=== PATIENT | male | born 1955 | race Caucasian/White ===

== ENCOUNTER → 2017-08-11 09:46 | Outpatient (CLI) | payer MEDICARE, SELFPAY ==
[2017-08-11 11:54] LABS: ALB/GLOB Ratio 0.9 RATIO (0.9-2.4); AST(SGOT) 20 U/L (15-37); Alanine Aminotransfer ALT/SGPT 27 U/L (16-61); Albumin, Serum 3.6 g/dL (3.2-5.0); Alkaline Phosphatase 99 U/L (45-117); Anion Gap 6 (5-15); BUN 19 mg/dL (7-18); BUN/Creat Ratio 18.1 RATIO (10-20); Chloride 103 mmol/L (98-107); Cholesterol 229 mg/dL (200); Creatinine, Serum 1.05 mg/dL (0.70-1.30); EST Glomerular Filtration Rate 76 mL/min (>60); Est Glom Filt Rate - Afr Amer 92 mL/min (>60); Globulin 3.8 g/dL (2.2-4.2); Glucose 105 mg/dL (74-106); High Density Lipoprotein 40 mg/dL; Potassium 4.3 mmol/L (3.5-5.1); Protein, Total 7.4 g/dL (6.4-8.2); Sodium Level 138 mmol/L (136-145); Triglycerides 239 mg/dL; Very Low Density Lipoprotein 48 mg/dL (5-40)
[2017-08-11 11:57] LABS: Hemoglobin A1c 6.2 % (4.2-6.3)
== END ==
PROVIDERS: Family Provider Nurse Practitioner Family; PCP Nurse Practitioner Family; Visit Provider Nurse Practitioner Family
DX: E78.5 Hyperlipidemia, unspecified (principal); R73.09 Other abnormal glucose
CPT/HCPCS: 36415; 80053; 80061; 83036

== ENCOUNTER → 2017-08-25 10:49 | Outpatient (CLI) | payer MEDICARE, SELFPAY ==
--- NOTE | 2017-08-25 10:53 | RAD_ITS ---
STUDY: X-RAY - LUMBAR SPINE REASON FOR EXAM: Male, 62 years old. LOWER BACK PAIN 3-4 MONTHS, HX HERNIATED DISC TECHNIQUE: 5 view(s) of the lumbar spine were obtained. COMPARISON: October 25, 2016 FINDINGS: There is normal lumbar lordosis. There is multilevel endplate spondylosis of the lumbar vertebrae. There is multi-level degenerative disc disease with multi-level disc space narrowing. There is atherosclerotic calcification of the abdominal aorta without a demonstrated aneurysm. RAD/L/S Spine Min 4 Views IMPRESSION: Stable examination. Degenerative changes of the spine. Electronically Signed: Yamel Gonzalez MD at 8:10 EST Tel , Service support ,
== END ==
PROVIDERS: Family Provider Nurse Practitioner Family; PCP Nurse Practitioner Family; Visit Provider Nurse Practitioner Family
DX: M54.16 Radiculopathy, lumbar region (principal)
CPT/HCPCS: 72110

== ENCOUNTER 2017-08-29 13:52 | Outpatient (RCR) | payer MEDICARE, SELFPAY ==
--- NOTE | 2017-08-29 15:03 | HP.PTEVAL_ITS ---
Patient's Visit Information LIDIA CAPELLAN is a 62 year old M referred to Physical Therapy by [facility] [place] NP.LLORSO with a diagnosis of LOW BACK PAIN. Date of Evaluation: 08/29/17 Physical Therapist: Kg Harper PT, - Visit Plan Frequency: 2x /Week Duration: 4 Weeks Plan: modalities ,postural ex's,DLS,FLEXABLITY - Subjective Subjective: This 62 y/o male presents to physical therapy with low back pain. 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 Symptoms worse walking,standing,bending min sitting,lifting . Symptoms better with rest. Patient has difficulty with sleeping. Coughing.sneezing can increase symptoms .Parathesia /tingling right leg. Pain affects ADL'S and housework tasks and quality of life. SOCIAL: . 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 GAIT: antalgic gait right side mild foward posture. NEURO: c/o parathesia/tingling lower leg, reflexes 3/3 L3-4,L4-5,L5-S1. MMT: quads/hams/hip R- 3+/5,L 4-/5, ankle 4/5 , great toe extensors. LUMBAR ROM: mod loss pain ,extension severe pain ,side glides mod pain. FLEXABLITY: mod tight hams. PALPTION: tender lumbar paraspinals. SPECIAL TEST: diminished heel/toe walking. LUMBAR QUADRANT: + - Special Tests L/S Slump test left side: Negative L/S Slump test right side: Positive L/S Left Straight Leg Raise: Positive L/S Right Straight Leg Raise: Negative Lumbar Standing: Flexion - Mechanical Response: No effect Lumbar Standing: Flexion - Symptoms During Testing: Increases Lumbar Standing: Flexion - Symptoms After Testing: Worse Lumbar Standing: Extension - Mechanical Response: No effect Lumbar Standing: Extension - Symptoms During Testing: Increases Lumbar Standing: Extension - Symptoms After Testing: Worse - Goals Goal 1:: Independant with HEP Goal Time Frame: 2-4 Weeks Goal 2:: Independant with posture for ADL'S Goal Time Frame: 2-4 Weeks Goal 3:: Decrease lumbar pain and radiculopathy by 50 % or greater to improve function. Goal Time Frame: 2-4 Weeks Goal 4:: Patient to improve lumbar RO for function of recovery Goal Time Frame: 4-6 Weeks Goal 5:: Patient improve function with ADL'S and housework taks with min limiations Goal Time Frame: 2-4 Weeks - Rehabilitation Potential Physical Therapy Diagnosis: Patient has lumbar pain with radiculopathy right leg with MRI 2017 showed severe foraminal stenosis and h/o of lumbar surgery 2007 and 2009 . Patient currently has severe loss of ROM ,pain weakness right leg impairs walking and standng and function Rehabilitation Potential: Good - Anticipated Interventions Patient/Client Instruction: Educate patient on: Condition, Plan of Care For the Purpose of:: To decrease pain, To increase ROM, To improve muscle performance and motor function, To improve ability to perform ADL's, To increase tolerance to activity/condition/position, To improve performance and independence with ADL's, To improve gait and locomotor functions, To improve health of tissue, To decrease soft tissue restriction, To increase flexibility/ ROM, To improve health and function, To prevent re-injury, To improve ability to perform tasks related to life management Therapeutic Exercise to Include: Strength training, Body mechanics, Postural training, Flexibilty training, Dynamic Lumbar Stabilization For the Purpose of:: To decrease pain, To increase ROM, To improve muscle performance and motor function, To increase tolerance to activity/condition/ position, To improve performance and independence with ADL's, To improve ability of physical actions for home/community/work/leisure, To improve gait and locomotor functions, To improve health of tissue, To decrease soft tissue restriction, To increase flexibility/ROM, To reduce risk of recurrence, To improve health and function, To improve ability to perform tasks related to life management TENS: Yes IF ES: Yes Cryotherapy (ice pack, ice massage): Yes Thermo therapy (hot pack): Yes Ultrasound (thermal/non thermal): Yes For the Purpose of:: To decrease pain, To increase ROM, To improve nutrient delivery to tissue, To increase oxygenation perfusion, To improve health of tissue, To decrease soft tissue restriction Thank you for the opportunity to evaluate your patient. For Medicare and Medicare HMO plans, please review the plan of care and approve it. It will need to be FAXED BACK to us at [phone] for Medicare purposes. Please let me know if there are questions or concerns regarding this plan of care. Physician Signature: Date:
--- NOTE | 2017-11-15 08:16 | HP.PTDCNRP_ITS ---
HP - Discharge Summary (1) - Patient Information LIDIA CAPELLAN was seen in my office for initial evaluation on 08/29/17. The following Plan of Care was established for this patient: Initial Frequency: 2x /Week Initial Duration: 4 Weeks - Anticipated Interventions Patient/Client Instruction: Educate patient on: Condition, Plan of Care For the Purpose of:: To decrease pain, To increase ROM, To improve muscle performance and motor function, To improve ability to perform ADL's, To increase tolerance to activity/condition/position, To improve performance and independence with ADL's, To improve gait and locomotor functions, To improve health of tissue, To decrease soft tissue restriction, To increase flexibility/ ROM, To improve health and function, To prevent re-injury, To improve ability to perform tasks related to life management Therapeutic Exercise to Include: Strength training, Body mechanics, Postural training, Flexibilty training, Dynamic Lumbar Stabilization For the Purpose of:: To decrease pain, To increase ROM, To improve muscle performance and motor function, To increase tolerance to activity/condition/ position, To improve performance and independence with ADL's, To improve ability of physical actions for home/community/work/leisure, To improve gait and locomotor functions, To improve health of tissue, To decrease soft tissue restriction, To increase flexibility/ROM, To reduce risk of recurrence, To improve health and function, To improve ability to perform tasks related to life management TENS: Yes IF ES: Yes Cryotherapy (ice pack, ice massage): Yes Thermo therapy (hot pack): Yes Ultrasound (thermal/non thermal): Yes For the Purpose of:: To decrease pain, To increase ROM, To improve nutrient delivery to tissue, To increase oxygenation perfusion, To improve health of tissue, To decrease soft tissue restriction This patient was last seen in our office . Pertinent comments regarding their Physical therapy will appear below: Patient was seen for Initial PT evaluation for low back pain. Patient was highly irritable and poor ROM and impaired function. At this point I will be discontinuing this patient from physical therapy. I would be happy to see this patient again in the future if found appropriate by the physician. Thank you! Kg Harper, PT,
== END 2017-08-29 19:00 | disposition home or self-care (01) ==
LOC: PT 13:52
PROVIDERS: Family Provider Nurse Practitioner Family; PCP Nurse Practitioner Family; Visit Provider Nurse Practitioner Family
DX: M54.5 Low back pain (principal)
CPT/HCPCS: 97014; 97162; G0283

== ENCOUNTER 2017-09-06 09:37 | Emergency (ER) | payer MEDICARE, SELFPAY ==
[2017-09-06 09:37] VITALS: BP 191/99; PULSE 87; RESP 17; TEMP 36.9; O2SAT 97; BMI 24.0
--- NOTE | 2017-09-06 10:08 | ED.VISSUMM ---
- ER Visit Summary Date of Service: 09/06/17 Chief Complaint: Back pain History of Present Illness: The patient is a [address] Perera. He reports he has back pain began approximately a year ago. He describes as an aching pain is 1010 at worst and 6 out of 10 currently. Is worsened by movement and relieved by nothing. He denies any recent trauma. No fall, MVA, or change in activity. Reports that numbness in his right foot for approximately 2 months. Pain radiates down the back of his right leg to the level of his foot. He denies any problems with his bowels or his bladder. No numbness in his groin. Patient reports that he has been referred to pain management in [place], but has not seen them yet. He states that his nurse practitioner is referring him to orthopedics. However, he reports that he had surgery on his back by Dr. Marcus Tena [facility] in 2009 and is not bothered to contact him over this timeframe. He had an MRI last October. Physical Examination: Vitals: Stable. Afebrile. General: A&O x 3. NAD. Cardiovascular exam: Regular rate and rhythm, no murmur, rub or gallop. Respiratory exam: Clear to auscultation bilaterally. No wheezes or stridor. Abdominal exam: Soft, nontender, nondistended, normal bowel sounds. No peritoneal signs. Back: Diffuse moderate tenderness to palpation over the lumbar spine and the paraspinous musculature in the lumbar region. No point tenderness. Negative straight leg bilaterally. 5/5 DF, PF, EHL bilaterally. Normal sensation to light touch throughout. Extremity: No clubbing, cyanosis, or edema. Emergency Department Course and Treatment: An [facility] report was obtained which shows a 22 prescriptions for opiates in the past year. I discussed them that he needs to follow-up with his pain management and spine surgeon for further evaluation and treatment. He is given dose of oxycodone here. Treatment Plan: I discussed the patient at this is chronic pain and it is not appropriate to prescribe pain medications from the emergency department for chronic pain. I have given a referral to Dr. Marcus Tena, his spine surgeon, and instructed to follow-up with him and pain management for further treatment of this chronic problem. The signs and symptoms of cauda equina syndrome were discussed. He is instructed to return for these. Disposition: To home in improved and stable condition. Impression: 1. Chronic back pain. This note was generated with [employer] dictation software. It may contain incorrect words, spelling, and punctuation that were not noted in review of the chart prior to signing ED Disposition - Plan for ED Patient: Disposition: Home or Assisted Living Chief Complaint: Back Instructions: ED Chronic Pain Management Referrals: Julissa García NP-C [Primary Care Provider] - Uriah Tena, DO [NON-STAFF] - As soon as possible
[2017-09-06] MEDS: oxyCODONE 5 MG Tablet 10 MG PO (10:24)
[2017-09-06 10:34] VITALS: BP 141/109; PULSE 68; RESP 17; O2SAT 99
== END 2017-09-06 10:42 | disposition home or self-care (01) ==
PROVIDERS: Emergency Provider Emergency Medicine; Family Provider Nurse Practitioner Family; PCP Nurse Practitioner Family
DX: M54.9 Dorsalgia, unspecified (principal); G89.29 Other chronic pain; R20.0 Anesthesia of skin; I10 Essential (primary) hypertension; I73.9 Peripheral vascular disease, unspecified; R11.0 Nausea; Z72.0 Tobacco use; Z79.82 Long term (current) use of aspirin; Z79.899 Other long term (current) drug therapy
CPT/HCPCS: 99283

== ENCOUNTER 2017-09-26 21:54 | Emergency (ER) | payer MEDICARE, SELFPAY ==
[2017-09-26 21:55] VITALS: BP 141/68; BP 160/66; PULSE 61; PULSE 64; RESP 14; RESP 15; TEMP 36.8; O2SAT 98; O2SAT 99; BMI 24.7
--- NOTE | 2017-09-26 22:26 | EKG12_ITS ---
Test Reason : CP Blood Pressure : / mmHG Vent. Rate : 063 BPM Atrial Rate : 063 BPM P-R Int : 166 ms QRS Dur : 082 ms QT Int : 364 ms P-R-T Axes : 023 056 040 degrees QTc Int : 372 ms Normal sinus rhythm Normal ECG Confirmed by ALEXANDRE JONES MD ([id number]), newspaper or periodical editor JASVIR JARRETT ([id number]) on 09/29/2017 11:23:22 AM Referred By: LATASHA Confirmed By:ALEXANDRE JONES MD
--- NOTE | 2017-09-26 22:26 | RAD_ITS ---
STUDY: X-RAY CHEST REASON FOR EXAM: Male, 62 years old. Left-sided chest pain TECHNIQUE: Single AP portable view of the chest. COMPARISON: None. FINDINGS: fish net maker leads are present. The lungs are clear and expanded. There is no demonstrated pleural abnormality. Normal size heart. Normal mediastinum and tricia. Normal visualized pulmonary arteries. There are calcified plaques of the aortic arch. There are diffuse degenerative changes of the visualized thoracic spine. Normal visualized ribs, clavicles, and shoulders. There is no demonstrated abnormality of the visualized soft tissue structures of the upper abdomen. RAD/Chest 1 View (Portable) IMPRESSION: Calcific plaques of the aortic arch. Degenerative thoracic spine. Electronically Signed: Philip Mar MD at 23:08 EDT , Service support ,
--- NOTE | 2017-09-26 22:32 | ED.DCSUM_ITS ---
- ER Visit Summary Date of Service: 09/26/17 Chief Complaint: Chest pain History of Present Illness: The patient is a 62 M with chest pain that started fairly suddenly and just prior to arrival tonight. He eating cake and ice cream and take his dish to the kitchen. He started to have retrosternal chest pain which was sharp and did not radiate. No tearing or gnawing pain. No back pain. No numbness. No nausea or vomiting. No sweats or pallor. No lightheadedness. No shortness of breath. Patient has high cholesterol, peripheral arterial disease and is a smoker. He has a history of a femoropopliteal bypass and a family history of coronary disease. He had a stress test in 2012 which he said was unremarkable. No history of stents. Physical Examination: Afebrile and vital signs unremarkable. Patient sitting comfortably. Skin normal in color without pallor or diaphoresis. Heart regular with no murmurs or rubs. Lungs clear. Extremities nontender. Good strength and sensation. Good pulses, equal. Test Results: EKG shows sinus rhythm at a rate of 63. No sign of acute ischemia or infarction. Chest x-ray and laboratory studies are pending. Emergency Department Course and Treatment: Patient placed on a monitor and treated with aspirin while awaiting results. The story is atypical, but I am concerned for ACS. He does not have a classic history, signs, or symptoms for PE or dissection. Chest x-ray showed a calcified aortic arch and degenerative T-spine. No widening of the mediastinum. White count 11.4. BMP unremarkable. Troponin normal. Patient had no further pain or symptoms. I advised him that he has risk factors for heart disease and recommended admission. He refused to be admitted. Says he feels okay and that will follow up with his doctor. He will call 911 for any chest pain. He understands that the complete workup has not been done and he could benefit from hospitalization. He declined any repeat or additional testing including CT. Treatment Plan: As above Disposition: Discharged Impression: 1. Chest pain This note was generated with [employer] dictation software. It may contain incorrect words, spelling, and punctuation that were not noted in review of the chart prior to signing ED Disposition - Plan for ED Patient: Chief Complaint: Chest Pain Referrals: Julissa García NP-C [Primary Care Provider] -
[2017-09-26 22:46] LABS: Absolute Lymphocyte Count 3.85 X10^3/ul (0.83-4.51); Absolute Neutrophil Count 6.4 X10^3/uL (2.0-7.7); Basophil# 0.04 X10^3/uL; Basophil% 0.4 % (0-1); Eosinophils% 2.6 % (0-5); Hematocrit 41.6 % (40-54); Hemoglobin 13.8 g/dl (13.0-16.5); Lymphocyte # 3.85 X10^3/ul (4.0); Lymphocyte % 33.9 % (19-41); Mean Corp Hgb Conc 33.2 g/gl (32-36); Mean Corpuscular Hgb 31.1 pg (27.0-32.0); Mean Corpuscular Volume 93.7 fL (80-94); Mean Platelet Vol. 11.8 fl (6.2-12.0); Monocyte# 0.73 X10^3/uL; Monocyte% 6.4 % (0-10); Neutrophil # 6.41 X10^3/uL (2.7-7.7); Neutrophil % 56.5 % (47-70); POSITIVE COUNT NO; POSITIVE DIFFERENTIAL NO; POSITIVE MORPHOLOGY NO; Platelet Count 202 K/mm3 (150-450); RBC Distribution Width CV 14.3 % (11.6-14.6); RBC Distribution Width SD 48.7 fl (35.1-43.9); Red Blood Count 4.44 M/mm3 (4.6-6.2); White Blood Count 11.4 K/mm3 (4.4-11.0)
[2017-09-26] MEDS: Aspirin 81 MG TAB.CHEW 324 MG PO (23:00)
[2017-09-26 23:01] VITALS: BP 137/74; PULSE 57; RESP 16; O2SAT 98
[2017-09-26 23:01] LABS: Anion Gap 6 (5-15); BUN 22 mg/dL (7-18); Calcium,Total 8.8 mg/dL (8.5-10.1); Chloride 104 mmol/L (98-107); Creatinine, Serum 1.05 mg/dL (0.70-1.30); EST Glomerular Filtration Rate 76 mL/min (>60); Est Glom Filt Rate - Afr Amer 92 mL/min (>60); Estimated Creatinine Clearance 57.95 ml/min; Glucose 88 mg/dL (74-106); Sodium Level 139 mmol/L (136-145)
--- NOTE | 2017-09-26 23:36 | ED.DEP ---
ED Disposition - Plan for ED Patient: Chief Complaint: Chest Pain Instructions: Warning Signs of a Heart Attack Referrals: Julissa García NP-C [Primary Care Provider] -
--- NOTE | 2017-09-26 23:40 | HP.PCM_ITS ---
History of Present Illness The patient is a 62 year old M [] Past Medical History Past Medical History (Chronic Problems): Chronic Problems Status post femoropopliteal bypass surgery (Chronic) Hyperlipemia (Chronic) Smoking (Chronic) Peripheral arterial occlusive disease (Chronic) Allergies No Known Allergies Allergy (Verified 09/26/17 22:00) Home Medications: Ambulatory Orders Medication Instructions Recorded Aspirin [Aspirin, Baby] 81 mg PO DAILY 03/19/13 Tetrahydrozoline HCl [Eye Drops] 1 drop EACH EYE QHS 02/06/15 Smoking Status: Current every day smoker - *Family History Maternal History Items: No pertinent history - Physical Exam Vital Signs Temp Pulse Resp BP Pulse Ox 98.3 F 57 L 16 137/74 H 98 09/26/17 21:55 09/26/17 23:01 09/26/17 23:01 09/26/17 23:01 09/26/17 23:01 Oxygen Flow Rate (L/min) 2 Oxygen Delivery Method Nasal Cannula Weight: 139 lb 12.369 oz Body Mass Index (BMI) 24.7 Laboratory Tests Past 24 Hrs 09/26/17 09/26/17 22:00 22:00 WBC 11.4 H RBC 4.44 L Hgb 13.8 Hct 41.6 MCV 93.7 MCH 31.1 MCHC 33.2 RDW 14.3 RDW Differential 48.7 H Plt Count 202 MPV 11.8 Immature Gran % (Auto) 0.200 Neut % (Auto) 56.5 Lymph % (Auto) 33.9 [place] % (Auto) 6.4 Eos % (Auto) 2.6 Baso % (Auto) 0.4 Absolute Neuts (auto) 6.4 Absolute Lymphs (auto) 3.85 Total Counted Not Reportable Sodium 139 Potassium 4.0 Chloride 104 Carbon Dioxide 29.0 Anion Gap 6 BUN 22 H Creatinine 1.05 Estim Creat Clear Calc 57.95 Est GFR (MDRD) Af Amer 92 Est GFR (MDRD) Non-Af 76 BUN/Creatinine Ratio 21.0 H Glucose 88 Calcium 8.8 Troponin I < 0.02
[2017-09-26 23:41] VITALS: BP 137/74; PULSE 59; RESP 18; O2SAT 99
== END 2017-09-26 23:42 | disposition home or self-care (01) ==
LOC: ED 22:37
PROVIDERS: Emergency Provider Emergency Medicine; Family Provider Nurse Practitioner Family; PCP Nurse Practitioner Family
DX: R07.9 Chest pain, unspecified (principal); I73.9 Peripheral vascular disease, unspecified; E78.00 Pure hypercholesterolemia, unspecified; Z79.82 Long term (current) use of aspirin; Z79.899 Other long term (current) drug therapy; F17.200 Nicotine dependence, unspecified, uncomplicated; Z95.820 Peripheral vascular angioplasty status with implants and grafts; Z87.19 Personal history of other diseases of the digestive system
CPT/HCPCS: 71045; 80048; 84484; 85025; 93005; 99285; A4216

== ENCOUNTER → 2017-10-13 09:09 | Outpatient (CLI) | payer MEDICARE, SELFPAY ==
--- NOTE | 2017-10-13 09:12 | US_ITS ---
STUDY: ABDOMINAL ULTRASOUND REASON FOR EXAM: Male, 62 years old. Left lower quadrant pain TECHNIQUE: Transabdominal ultrasound was performed with real-time and static jimenez scale imaging. TECHNICAL QUALITY: Limited. Examination limited by bowel gas. COMPARISON: None. FINDINGS: Liver: The liver measures 14.7 cm. There is normal echogenicity of the liver. The bile ducts are within normal limits. There is hepatic color flow. The direction of portal flow is hepatopetal. There is no demonstrated mass lesion. Gallbladder: There is a contracted gallbladder. The gallbladder wall measures 3 mm. There is a negative sonographic Hilton's sign. There is no pericholecystic fluid. There are no gallstones. Common Bile Duct (C.B.D.): The common bile duct measures 3 mm. Pancreas: There is suboptimal visualization of the pancreas secondary to excessive bowel gas. The pancreas is grossly within normal limits in size and contour. Spleen: Normal size of the spleen. The spleen measures 9.1 x 3.5 x 3.8 cm. Right Kidney: Normal size of the right kidney. The right kidney measures 10.5 x 4.5 x 6.0 cm. Normal renal cortex. The right cortex measures 1.7 cm. There is no demonstrated renal mass or cyst. There is no right hydronephrosis. Left Kidney: Normal size of the left kidney. The left kidney measures 10.7 x 4.2 x 4.6 cm. Normal renal cortex. The left cortex measures 1.4 cm. There is no demonstrated renal mass or cyst. There is no left hydronephrosis. Aorta: The proximal abdominal aorta was obscured by bowel gas. The mid abdominal aorta measures 1.3 x 1.5 cm in diameter. The distal abdominal aorta measures 1.5 x 1.4 cm in diameter. Atheromatous plaques are seen in the visualized mid to distal abdominal aorta. I.V.C.: The IVC is patent. There is no ascites. US/Abdomen Complete IMPRESSION: Limited study secondary to excessive bowel gas artifact. There is limited visualization of the pancreas. The abdominal aorta is obscured by bowel gas proximally. Atheromatous plaque is noted in the mid to distal abdominal aorta. Electronically Signed: Philip Mar MD at 20:13 EDT , Service support ,
== END ==
LOC: US 09:10
PROVIDERS: Family Provider Nurse Practitioner Family; PCP Nurse Practitioner Family; Visit Provider Nurse Practitioner Family
DX: R10.814 Left lower quadrant abdominal tenderness (principal)
CPT/HCPCS: 76700

== ENCOUNTER 2018-01-30 03:07 | Emergency (ER) | payer MEDICARE, SELFPAY ==
[2018-01-30 03:08] VITALS: BP 152/112; PULSE 67; RESP 18; TEMP 36.8; O2SAT 99; BMI 23.0
--- NOTE | 2018-01-30 03:38 | ED.VISSUMM ---
- ER Visit Summary Date of Service: 01/30/18 Chief Complaint: Atraumatic left hip pain History of Present Illness: The patient is a 62 M history of peripheral arterial disease with bypass surgery to both lower extremities. Also history of melanoma and glaucoma. Patient states since Monday he has had atraumatic left hip pain. Denies any falls or injuries. No prior history. No prior hip surgery. He states feels somewhat like his prior sciatica except consider going down the back of the leg and wraps around his medial thigh. He denies any fever or redness. No swelling. He is able to walk. Physical Examination: Older male complaining of pain vital signs are stable afebrile. H EENT exam unremarkable. Neck nontender. Lungs clear to auscultation bilaterally. Heart regular rhythm no murmur. Abdomen soft nontender. No pulsatile mass. Palpable left femoral pulse. Back nontender. Left hip laterally has mild tenderness. No deformity. No redness or warmth. No swelling. He has normal range of motion of his left hip. There is no shortening or rotation. No gross bony deformity. Left thigh, knee, lower leg ankle and foot are nontender. He has a palpable DP pulse. Dorsi and plantar flexion intact. Calf is with out tenderness nor edema nor cord. Right lower extremity both upper extremities are unremarkable. Neurologic exam is normal. Test Results: X-ray of the left hip and pelvis no acute process. Mild arthritic changes. No fracture. No dislocation. No bony lesions. Emergency Department Course and Treatment: Patient treated with IM morphine. Treatment Plan: Repeat exam at 04 49 patient is doing somewhat better. He is up walking about the room. He and I discussed that this may be neurologic pain from a pinched nerve in his back. He has no reproducible back pain. He will be discharged home with [place] for pain 20 no refill. Follow-up with his primary care physician if not improving. Disposition: Discharge Impression: Acute atraumatic left hip pain of uncertain etiology This note was generated with [employer] dictation software. It may contain incorrect words, spelling, and punctuation that were not noted in review of the chart prior to signing ED Disposition - Plan for ED Patient: Chief Complaint: Lower Extremity Injury Referrals: Julissa García NP-C [Primary Care Provider] -
[2018-01-30] MEDS: morphine 10 MG/ML Syringe IM (03:41)
--- NOTE | 2018-01-30 04:51 | ED.DEP ---
ED Disposition - Plan for ED Patient: Disposition: Home or Assisted Living Chief Complaint: Lower Extremity Injury Prescriptions: Hydrocodone/Acetaminophen [[place] 7.5-325 Tablet] 1 ea PO Q4H PRN PRN #20 tab PRN Reason: Pain Referrals: Julissa García NP-C [Primary Care Provider] - As soon as possible Additional Instructions: The hip pain may be secondary to a pinched nerve in her back. Use an anti-inflammatory such as naproxen and also the [place] for pain. [place] may cause you constipation make sure you are drinking plenty of water and plenty of fiber to prevent constipation. Follow-up your primary care physician if this pain is not improving you may need further evaluation and possibly even an MRI of your back if this is not improving.
--- NOTE | 2018-01-30 04:54 | DCINST.ED_ITS ---
ED Disposition - Plan for ED Patient: Disposition: Home or Assisted Living Chief Complaint: Lower Extremity Injury Prescriptions: Hydrocodone/Acetaminophen [[place] 7.5-325 Tablet] 1 ea PO Q4H PRN PRN #20 tab PRN Reason: Pain Referrals: Julissa García NP-C [Primary Care Provider] - As soon as possible Additional Instructions: The hip pain may be secondary to a pinched nerve in her back. Use an anti-inflammatory such as naproxen and also the [place] for pain. [place] may cause you constipation make sure you are drinking plenty of water and plenty of fiber to prevent constipation. Follow-up your primary care physician if this pain is not improving you may need further evaluation and possibly even an MRI of your back if this is not improving.
[2018-01-30 05:03] VITALS: BP 174/88; PULSE 56; RESP 18; O2SAT 100
== END 2018-01-30 05:04 | disposition home or self-care (01) ==
PROVIDERS: Emergency Provider Emergency Medicine; Family Provider Nurse Practitioner Family; PCP Nurse Practitioner Family
DX: M25.552 Pain in left hip (principal); I73.9 Peripheral vascular disease, unspecified; H40.9 Unspecified glaucoma; Z72.0 Tobacco use; Z79.82 Long term (current) use of aspirin; Z79.899 Other long term (current) drug therapy; Z85.820 Personal history of malignant melanoma of skin; Z95.820 Peripheral vascular angioplasty status with implants and grafts
CPT/HCPCS: 73502; 96372; 99282

== ENCOUNTER → 2018-02-14 16:03 | Outpatient (CLI) | payer MEDICARE, SELFPAY ==
--- NOTE | 2018-02-14 16:17 | MRI_ITS ---
STUDY: MRI LUMBAR SPINE WITHOUT CONTRAST REASON FOR EXAM: Male, 62 years old. Low back pain. TECHNIQUE: Standardized fat and water weighted pulse sequences were obtained in the sagittal and axial planes. COMPARISON: None FINDINGS: T12-L1: Normal endplates. Normal disc height, hydration and morphology. Normal bilateral facet joints. Normal central canal and bilateral lateral recesses. Normal bilateral intervertebral neural foramina. Normal lumbar lordosis. There is no substantial scoliosis. Normal conus medullaris that terminates at the T12 level. L1-2: Normal endplates. Disc dehydration. There is a small right paracentral annular fissure. Mild facet hypertrophy. Normal central canal and bilateral lateral recesses. Normal bilateral intervertebral neural foramina. L2-3: Normal endplates. Disc dehydration and moderate disc space narrowing. There is 2 mm degenerative retrolisthesis. Normal bilateral facet joints. Normal central canal and bilateral lateral recesses. There is moderate proximal foraminal stenosis due to spurring and retrolisthesis. L3-4: Normal endplates. Disc dehydration and mild disc space narrowing. Status post laminectomy. There is 3 mm degenerative retrolisthesis. There is mild to moderate foraminal encroachment, greater on the right, due to spurring and mild facet hypertrophy. L4-5: Normal endplates. Disc dehydration and moderate disc space narrowing. There is 3 mm degenerative anterolisthesis. Mild facet hypertrophy. No canal stenosis. Foramina are patent. L5-S1: Transitional L5 vertebral body with hypoplastic disc space. Normal endplates. Mild facet arthrosis. Normal central canal and bilateral lateral recesses. Normal bilateral intervertebral neural foramina. Normal visualized sacral ala. Normal visualized paraspinous soft tissue structures. MRI/Spine Lumbar (Routine) IMPRESSION: 1. L1-2 annular fissure. 2. Multilevel listhesis including L2-3, L3-4, and L4-5. 3. Foraminal encroachment at L2-3 and L3-4. Electronically Signed: Kelsea Mendoza MD at 19:47 EDT Tel , Service support ,
== END ==
LOC: MRI 16:04
PROVIDERS: Family Provider Nurse Practitioner Family; PCP Nurse Practitioner Family; Visit Provider Nurse Practitioner Family
DX: M54.16 Radiculopathy, lumbar region (principal); M25.552 Pain in left hip; M54.5 Low back pain; G89.29 Other chronic pain
CPT/HCPCS: 72148; 73721

== ENCOUNTER 2018-03-29 11:45 | Inpatient (IN) | payer MEDICARE, SELFPAY ==
[2018-03-29 12:00] VITALS: BP 145/90; PULSE 65; RESP 16; TEMP 36.7; O2SAT 100
[2018-03-29 12:04] VITALS: BMI 23.1
[2018-03-29 12:05] VITALS: BMI 23.1
--- NOTE | 2018-03-29 12:28 | HP.PCM_ITS ---
Problem List (1) Hyperlipemia Status: Chronic Qualifiers: Hyperlipidemia type: unspecified Qualified Code(s): E78.5 - Hyperlipidemia, unspecified (2) Smoking Status: Chronic (3) Peripheral arterial occlusive disease Status: Chronic (4) Opioid withdrawal Status: Acute History of Present Illness Date of Admission: 03/29/18 Chief Complaint: Nausea, diarrhea, tremors, goose flesh - 1 day The patient is a 62 year old M with past medical history of opioid use disorder, reportedly after a history of back surgery according to the patient. Patient comes in and request medical stabilization under the [facility] protocol. He uses 1-2 g of heroin every day, last use heroin use was yesterday. He comes in complaining of nausea, runny nose, gooseflesh, tremors. Also reports diarrhea and generalized muscle ache. Past Medical History Past Medical History (Chronic Problems): Chronic Problems Status post femoropopliteal bypass surgery (Chronic) Hyperlipemia (Chronic) Smoking (Chronic) Peripheral arterial occlusive disease (Chronic) Allergies No Known Allergies Allergy (Verified 01/30/18 03:11) Home Medications: Ambulatory Orders Medication Instructions Recorded Aspirin [Aspirin, Baby] 81 mg PO QHS 03/19/13 Tetrahydrozoline HCl [Eye Drops] 1 drop EACH EYE QHS 02/06/15 Surgical History: - - PAD s/p fem-pop bypass, back surgery Lives: Spouse/ Significant Other Smoking Status: Current every day smoker Tobacco Use: Cigarettes Alcohol: None Drugs: None - *Family History Maternal History Items: No pertinent history Paternal History Items: No pertinent history Review of Systems Constitutional: Denies: Anorexia, Chills, Fever, Malaise, Weakness, Weight Change Eyes: Denies: Blurred vision, Cataracts HEENT: Denies: Difficulty Hearing, Difficulty Swallowing, Head Aches, Hearing Changes, Sinus Congestion, Sinus Drainage Cardiovascular: Denies: Chest Pain, Claudication, Orthopnea, Palpitations, Paroxysmal Noc. Dyspnea Respiratory: Denies: Cough, Hemoptysis, Shortness of breath at rest, Shortness of breath upon exertion, Sputum production Gastrointestinal: Reports: Nausea. Denies: Abdominal Pain, Hematemesis, Hematochezia, Vomiting Genitourinary: Denies: Dysuria, Frequency, Incontinence Musculoskeletal: Denies: Joint Pain, Joint stiffness, Joint swelling, Joint Tenderness Skin: Denies: Rash, Wounds Neurological: Denies: Difficulty swallowing, Focal weakness, Numbness, Tingling Psychiatric: Denies: Anxiety, Depression, Homicidal Ideations, Suicidal Ideations Hematologic/ Lymphatic: Denies: Easy Bruising, Easy Bleeding VTE Information - Inpt Only VTE Present on Admission: No VTE Pharm Prophylaxis ordered?: Yes Patient Problems: Active and Suspected Problems Opioid withdrawal (Acute) - Physical Exam General: Alert, Oriented x3, Cooperative, No apparent distress HEENT: Atraumatic, PERRLA, EOMI, Normocephalic Oral: Moist Mucosa Neck: Supple, No JVD, Negative Carotid Bruits Lungs: Clear to auscultation, Normal air movement Cardiovascular: Regular rate, Regular Rhythm, Normal S1, Normal S2, No murmurs Abdomen: Bowel Sounds Present, Soft, Non Tender, Non-Distended, No Hepato-splenomegaly Extremities: No edema Skin: No rashes, No breakdown Musculoskeletal: No Tenderness to Palpation of Joints or Extremities Lymphatic: No Cervical, Supraclavicular, or Inguinal Adenopathy Neurological: Cranial nerves II-XII grossly intact, Neuro grossly intact Psych/Mental Status: Normal Affect, Appropriate Vital Signs Temp Pulse Resp BP Pulse Ox 98.0 F 65 16 145/90 H 100 03/29/18 12:00 03/29/18 12:00 03/29/18 12:00 03/29/18 12:00 03/29/18 12:00 Oxygen Delivery Method Room Air Weight: 60.101 kg Body Mass Index (BMI) 23.1 Assessment/Plan All Active Problems Opioid withdrawal (Acute) SMALL BOWEL ileus (Acute) Chest pain (Resolved) 62 y/o male with opioid use disorder comes in with nausea, muscle aches, and is admitted for medical stabilization. 1. Acute opioid withdrawal, will be admitted and managed under the [facility] protocol. 2. Polysubstance use disorder, including nicotine dependency, on nicotine replacement 3. H/o PAD s/p fem-pop bypass, continue on aspirin 4. DVT PPx- Lovenox SC Code Visit Inpatient E&M: 93993 Init Hosp L2
[2018-03-29 12:57] LABS: Absolute Lymphocyte Count 2.37 X10^3/ul (0.83-4.51); Absolute Neutrophil Count 3.7 X10^3/uL (2.0-7.7); Basophil# 0.05 X10^3/uL; Basophil% 0.7 % (0-1); Eosinophil# 0.39 X10^3/uL; Eosinophils% 5.5 % (0-5); Hematocrit 42.1 % (40-54); Hemoglobin 14.2 g/dl (13.0-16.5); Lymphocyte # 2.37 X10^3/ul (4.0); Lymphocyte % 33.6 % (19-41); Mean Corp Hgb Conc 33.7 g/gl (32-36); Mean Corpuscular Hgb 30.7 pg (27.0-32.0); Mean Corpuscular Volume 90.9 fL (80-94); Mean Platelet Vol. 11.4 fl (6.2-12.0); Monocyte# 0.58 X10^3/uL; Monocyte% 8.2 % (0-10); Neutrophil # 3.65 X10^3/uL (2.7-7.7); Neutrophil % 51.9 % (47-70); Platelet Count 232 K/mm3 (150-450); RBC Distribution Width CV 14.5 % (11.6-14.6); Red Blood Count 4.63 M/mm3 (4.6-6.2); White Blood Count 7.1 K/mm3 (4.4-11.0)
[2018-03-29 12:58] LABS: POSITIVE COUNT NO; POSITIVE DIFFERENTIAL NO; POSITIVE MORPHOLOGY NO
[2018-03-29 13:14] LABS: AST(SGOT) 13 U/L (15-37); Alanine Aminotransfer ALT/SGPT 21 U/L (16-61); Albumin, Serum 3.8 g/dL (3.2-5.0); Alkaline Phosphatase 102 U/L (45-117); Anion Gap 7 (5-15); BUN 19 mg/dL (7-18); BUN/Creat Ratio 18.8 RATIO (10-20); Calcium,Total 8.9 mg/dL (8.5-10.1); Chloride 107 mmol/L (98-107); Creatinine, Serum 1.01 mg/dL (0.70-1.30); EST Glomerular Filtration Rate 79 mL/min (>60); Est Glom Filt Rate - Afr Amer 96 mL/min (>60); Estimated Creatinine Clearance 60.25 ml/min; Globulin 3.8 g/dL (2.2-4.2); Glucose 101 mg/dL (74-106); Potassium 4.4 mmol/L (3.5-5.1); Protein, Total 7.6 g/dL (6.4-8.2); Sodium Level 137 mmol/L (136-145)
[2018-03-29] MEDS: hydrOXYzine PAM 25 MG Capsule 50 MG PO ×2 (13:14→19:57)
[2018-03-29] MEDS: cloNIDine HCl 0.1 MG Tablet PO ×2 (13:14→18:28)
[2018-03-29] MEDS: Dicyclomine 10 MG Capsule 20 MG PO (13:14)
[2018-03-29] MEDS: Buprenorphine HCl 2 MG TAB.SUBL SL ×2 (13:14→19:57)
[2018-03-29] MEDS: Methocarbamol 750 MG Tablet PO ×2 (13:14→19:57)
--- NOTE | 2018-03-29 14:39 | EKG12_ITS ---
Test Reason : [facility] Blood Pressure : / mmHG Vent. Rate : 046 BPM Atrial Rate : 046 BPM P-R Int : 206 ms QRS Dur : 090 ms QT Int : 432 ms P-R-T Axes : 000 056 051 degrees QTc Int : 378 ms Marked sinus bradycardia Abnormal ECG When compared with ECG of 26-SEP-2017 21:56, No significant change was found Confirmed by KAREN BRYAN, ALEXANDRE ([id number]), editor farm journal EUGENIA HURD ([id number]) on 04/09/2018 11:05:25 AM Referred By: Mignon Glaser Confirmed By:ALEXANDRE JONES MD
[2018-03-29 16:25] VITALS: BP 108/71; PULSE 51; RESP 18; TEMP 36.8
[2018-03-29 17:08] LABS: Amphetamine Urine VISTA NEGATIVE (<1000 ng/mL); Barbiturate Urine VISTA NEGATIVE (< 200 ng/mL); Benzodiazepine Urine VISTA NEGATIVE (< 200 ng/mL); Cocaine Urine VISTA NEGATIVE (< 300 ng/mL); Ecstacy Urine VISTA NEGATIVE (< 500 ng/mL); Methadone Urine VISTA NEGATIVE (< 300 ng/mL); PCP Urine VISTA NEGATIVE (< 25 ng/mL); THC Urine VISTA POSITIVE (< 50 ng/mL); Vista UDS pH Range 5
[2018-03-29] MEDS: Pramipexole Di-HCl 0.25 MG Tablet PO (18:28)
[2018-03-29 18:30] VITALS: PULSE 65
[2018-03-29] MEDS: Zolpidem Tartrate 5 MG Tablet PO (21:21)
[2018-03-29] MEDS: Aspirin 81 MG TAB.CHEW PO (21:21)
[2018-03-29 22:00] VITALS: BP 129/58; PULSE 62; RESP 16; TEMP 36.7
[2018-03-30 02:00] VITALS: BP 101/60; PULSE 55; RESP 16; TEMP 36.7
[2018-03-30] MEDS: Buprenorphine HCl 2 MG TAB.SUBL SL ×3 (03:43→20:29)
[2018-03-30 06:00] VITALS: BP 108/63; PULSE 61; RESP 16; TEMP 37
[2018-03-30 07:41] VITALS: BP 134/73; PULSE 56; RESP 16; TEMP 36.5; O2SAT 96
[2018-03-30] MEDS: Methocarbamol 750 MG Tablet PO ×2 (07:50→20:29)
[2018-03-30] MEDS: Enoxaparin 40 MG/0.4 ML Syringe SC (07:55)
--- NOTE | 2018-03-30 12:25 | PCM.PN.HOSP ---
Patient Problems: Active and Suspected Problems Opioid withdrawal (Acute) Subjective: Patient was seen and examined. Complains of worsening generalized aches and poor sleep. Denies any worsening nausea or vomiting or diarrhea. CIWA scores are improving with the current being 3 Objective: Physical Exam General: Alert, Oriented x3, Cooperative, in mild discomfort from generalized aches HEENT: Atraumatic, PERRLA, EOMI, Normocephalic Oral: Moist Mucosa Neck: Supple, No JVD, Negative Carotid Bruits Lungs: Clear to auscultation, Normal air movement Cardiovascular: Regular rate, Regular Rhythm, Normal S1, Normal S2, No murmurs Abdomen: Bowel Sounds Present, Soft, Non Tender, Non-Distended, No Hepato-splenomegaly Extremities: No edema Skin: No rashes, No breakdown Musculoskeletal: No Tenderness to Palpation of Joints or Extremities Lymphatic: No Cervical, Supraclavicular, or Inguinal Adenopathy Neurological: Cranial nerves II-XII grossly intact, Neuro grossly intact Psych/Mental Status: Normal Affect, Appropriate Vitals/I&O's: Vital Signs Temp Pulse Resp BP Pulse Ox 97.7 F L 56 L 16 134/73 H 96 03/30/18 07:41 03/30/18 07:41 03/30/18 07:41 03/30/18 07:41 03/30/18 07:41 Oxygen Delivery Method Room Air Weight: 60.101 kg Body Mass Index (BMI) 23.1 Intake and Output for Last 24 Hours 03/28/18 03/29/18 03/30/18 23:59 23:59 23:59 Intake Total 650 / 650 Balance 650 / 650 Laboratory Results 03/29/18 12:38: WBC 7.1, RBC 4.63, Hgb 14.2, Hct 42.1, MCV 90.9, MCH 30.7, MCHC 33.7, RDW 14.5, RDW Differential 48.0 H, Plt Count 232, MPV 11.4, Immature Gran % (Auto) 0.100, Neut % (Auto) 51.9, Lymph % (Auto) 33.6, Shelby % (Auto) 8.2, Eos % (Auto) 5.5 H, Baso % (Auto) 0.7, Absolute Neuts (auto) 3.7, Absolute Lymphs (auto) 2.37, Total Counted Not Reportable 03/29/18 12:38: Sodium 137, Potassium 4.4, Chloride 107, Carbon Dioxide 23.0, Anion Gap 7, BUN 19 H, Creatinine 1.01, Estim Creat Clear Calc 60.25, Est GFR (MDRD) Af Amer 96, Est GFR (MDRD) Non-Af 79, BUN/Creatinine Ratio 18.8, Glucose 101, Calcium 8.9, Total Bilirubin 0.40, AST 13 L, ALT 21, Alkaline Phosphatase 102, Total Protein 7.6, Albumin 3.8, Globulin 3.8, Albumin/Globulin Ratio 1.0 03/29/18 16:25: Urine Opiates Screen POSITIVE H, Urine Methadone Screen NEGATIVE, Ur Barbiturates Screen NEGATIVE, Ur Phencyclidine Scrn NEGATIVE, Ur Amphetamines Screen NEGATIVE, U Methamphetamin-MDMA NEGATIVE, U Benzodiazepines Scrn NEGATIVE, Urine Cocaine Screen NEGATIVE, U Cannabinoids Screen POSITIVE H, Ur Drug Screen Comment Current Medications Acetaminophen (Tylenol) 650 mg PO Q6H PRN PRN PRN Reason: Mild Pain (1-3)/Temp > 100.7 F Aspirin (Aspirin, Baby) 81 mg PO QHS [facility] Last Admin: 03/29/18 21:21 Dose: 81 mg Buprenorphine HCl (Buprenorphine Hcl) 4 mg SL Q8H [facility]; Taper Stop: 04/01/18 16:29 Last Admin: 03/30/18 03:43 Dose: 4 mg Clonidine (Catapres) 0.1 mg PO Q2H PRN PRN PRN Reason: Hot/Cold Sweats or Anxiety Last Admin: 03/29/18 18:28 Dose: 0.1 mg Dicyclomine HCl (Bentyl) 20 mg PO Q6H PRN PRN PRN Reason: Abdomnial Discomfort Last Admin: 03/29/18 13:14 Dose: 20 mg Enoxaparin Sodium (Lovenox) 40 mg SC DAILY@1000 [facility]UE Last Admin: 03/30/18 07:55 Dose: 40 mg Hydroxyzine Pamoate (Vistaril Pamoate Capsule) 50 mg PO Q6H PRN PRN PRN Reason: Mild Anxiety Last Admin: 03/29/18 19:57 Dose: 50 mg Ibuprofen (Motrin) 400 mg PO Q8H PRN PRN PRN Reason: MILD PAIN (1-3/10) Magnesium Hydroxide (Milk Of Magnesia) 30 ml PO DAILY PRN PRN PRN Reason: Constipation Menthol (Bengay Vanishing Scent) 1 applic TOPICAL 4X/DAY PRN PRN PRN Reason: pain Methocarbamol (Methocarbamol) 750 mg PO Q6H PRN PRN PRN Reason: Muscle Aches Last Admin: 03/30/18 07:50 Dose: 750 mg Nicotine (Nicoderm Cq (Pbkc)) 21 mg TRANSDERM. DAILY [facility] Last Admin: 03/30/18 07:51 Dose: 21 mg Nicotine Polacrilex (Rugby Nicotine (Pbkc)) 4 mg PO Q2H PRN PRN PRN Reason: Nicotine craving Last Admin: 03/30/18 09:55 Dose: 4 mg Pramipexole Dihydrochloride (Mirapex) 0.25 mg PO Q12H PRN PRN PRN Reason: Restless Legs Last Admin: 03/29/18 18:28 Dose: 0.25 mg Psyllium Hydrophilic Mucilloid (Metamucil) 1 packet PO DAILY PRN PRN PRN Reason: CONSTIPATION Medical Necessity - Tobacco Use Smoking Status: Current every day smoker Tobacco Use: Cigarettes Assessment/Plan All Active Problems Opioid withdrawal (Acute) SMALL BOWEL ileus (Acute) Chest pain (Resolved) 62 y/o male with opioid use disorder comes in with nausea, muscle aches, and is admitted for medical stabilization. 1. Acute opioid withdrawal, improving, will continue to monitor with the [facility] protocol. 2. Polysubstance use disorder, including nicotine dependency, on nicotine replacement, advised to quit use of marijuana. 3. H/o PAD s/p fem-pop bypass, continue on aspirin 4. DVT PPx- Lovenox SC Code Visit Inpatient E&M: 06380 Subs Hosp L2
[2018-03-30] MEDS: cloNIDine HCl 0.1 MG Tablet PO (12:31)
[2018-03-30] MEDS: Dicyclomine 10 MG Capsule 20 MG PO (12:31)
[2018-03-30] MEDS: Ibuprofen 400 MG Tablet PO (12:31)
[2018-03-30 12:32] VITALS: BP 117/77; PULSE 61; RESP 16; TEMP 36.6; O2SAT 100
[2018-03-30 16:15] VITALS: BP 104/64; PULSE 50; RESP 16; TEMP 36.8; O2SAT 97
[2018-03-30 20:28] VITALS: BP 125/71; PULSE 55; RESP 16; TEMP 36.8
[2018-03-30] MEDS: Aspirin 81 MG TAB.CHEW PO (20:30)
[2018-03-30] MEDS: hydrOXYzine PAM 25 MG Capsule 50 MG PO (20:30)
[2018-03-31] MEDS: Buprenorphine HCl 2 MG TAB.SUBL SL ×2 (04:30→17:06)
[2018-03-31] MEDS: Pramipexole Di-HCl 0.25 MG Tablet PO (04:30)
[2018-03-31] MEDS: hydrOXYzine PAM 25 MG Capsule 50 MG PO ×3 (04:30→17:18)
[2018-03-31 04:36] VITALS: BP 118/67; PULSE 59; RESP 18; TEMP 36.9
[2018-03-31 09:54] VITALS: BP 125/65; PULSE 70; RESP 18; TEMP 36.8
[2018-03-31] MEDS: Enoxaparin 40 MG/0.4 ML Syringe SC (09:59)
[2018-03-31] MEDS: Ibuprofen 400 MG Tablet PO (10:04)
[2018-03-31] MEDS: cloNIDine HCl 0.1 MG Tablet PO (10:04)
--- NOTE | 2018-03-31 10:42 | PCA ---
This [employer] SET UP OPERATOR staying in room while pt shaved. Disposed of razor in sharps container.
--- NOTE | 2018-03-31 12:01 | PCM.PN.HOSP ---
Patient Problems: Active and Suspected Problems Opioid withdrawal (Acute) Subjective: Patient was seen and examined. Denies any new complaints. His muscle aches are much better with the NSAIDs. No acute events overnight Objective: Physical Exam General: Alert, Oriented x3, Cooperative, in mild discomfort from generalized aches HEENT: Atraumatic, PERRLA, EOMI, Normocephalic Oral: Moist Mucosa Neck: Supple, No JVD, Negative Carotid Bruits Lungs: Clear to auscultation, Normal air movement Cardiovascular: Regular rate, Regular Rhythm, Normal S1, Normal S2, No murmurs Abdomen: Bowel Sounds Present, Soft, Non Tender, Non-Distended, No Hepato-splenomegaly Extremities: No edema Skin: No rashes, No breakdown Musculoskeletal: No Tenderness to Palpation of Joints or Extremities Lymphatic: No Cervical, Supraclavicular, or Inguinal Adenopathy Neurological: Cranial nerves II-XII grossly intact, Neuro grossly intact Psych/Mental Status: Normal Affect, Appropriate Vitals/I&O's: Vital Signs Temp Pulse Resp BP Pulse Ox 98.2 F 70 18 125/65 H 97 03/31/18 09:54 03/31/18 09:54 03/31/18 09:54 03/31/18 09:54 03/30/18 16:15 Oxygen Delivery Method Room Air Weight: 60.101 kg Body Mass Index (BMI) 23.1 Intake and Output for Last 24 Hours 03/29/18 03/30/18 03/31/18 23:59 23:59 23:59 Intake Total 1550 / 1550 900 / 900 Balance 1550 / 1550 900 / 900 Current Medications Acetaminophen (Tylenol) 650 mg PO Q6H PRN PRN PRN Reason: Mild Pain (1-3)/Temp > 100.7 F Aspirin (Aspirin, Baby) 81 mg PO QHS [facility] Last Admin: 03/30/18 20:30 Dose: 81 mg Buprenorphine HCl (Buprenorphine Hcl) 2 mg SL Q12H [facility]; Taper Stop: 04/01/18 16:29 Last Admin: 03/31/18 04:30 Dose: 2 mg Clonidine (Catapres) 0.1 mg PO Q2H PRN PRN PRN Reason: Hot/Cold Sweats or Anxiety Last Admin: 03/31/18 10:04 Dose: 0.1 mg Dicyclomine HCl (Bentyl) 20 mg PO Q6H PRN PRN PRN Reason: Abdomnial Discomfort Last Admin: 03/30/18 12:31 Dose: 20 mg Enoxaparin Sodium (Lovenox) 40 mg SC DAILY@1000 SUE Last Admin: 03/31/18 09:59 Dose: 40 mg Hydroxyzine Pamoate (Vistaril Pamoate Capsule) 50 mg PO Q6H PRN PRN PRN Reason: Mild Anxiety Last Admin: 03/31/18 10:05 Dose: 50 mg Ibuprofen (Motrin) 400 mg PO Q8H PRN PRN PRN Reason: MILD PAIN (1-3) Last Admin: 03/31/18 10:04 Dose: 400 mg Magnesium Hydroxide (Milk Of Magnesia) 30 ml PO DAILY PRN PRN PRN Reason: Constipation Menthol (Bengay Vanishing Scent) 1 applic TOPICAL 4X/DAY PRN PRN PRN Reason: pain Methocarbamol (Methocarbamol) 750 mg PO Q6H PRN PRN PRN Reason: Muscle Aches Last Admin: 03/30/18 20:29 Dose: 750 mg Nicotine (Nicoderm Cq (Pbkc)) 21 mg TRANSDERM. DAILY [facility] Last Admin: 03/31/18 09:59 Dose: 21 mg Nicotine Polacrilex (Rugby Nicotine (Pbkc)) 4 mg PO Q2H PRN PRN PRN Reason: Nicotine craving Last Admin: 03/31/18 10:05 Dose: 4 mg Pramipexole Dihydrochloride (Mirapex) 0.25 mg PO Q12H PRN PRN PRN Reason: Restless Legs Last Admin: 03/31/18 04:30 Dose: 0.25 mg Psyllium Hydrophilic Mucilloid (Metamucil) 1 packet PO DAILY PRN PRN PRN Reason: CONSTIPATION Medical Necessity - Tobacco Use Smoking Status: Current every day smoker Tobacco Use: Cigarettes Assessment/Plan All Active Problems Opioid withdrawal (Acute) SMALL BOWEL ileus (Acute) Chest pain (Resolved) 62 y/o male with opioid use disorder comes in with nausea, muscle aches, and is admitted for medical stabilization. 1. Acute opioid withdrawal, improving, will continue to monitor with the [facility] protocol. 2. Polysubstance use disorder, including nicotine dependency, on nicotine replacement, advised to quit use of marijuana. 3. H/o PAD s/p fem-pop bypass, continue on aspirin 4. DVT PPx- Lovenox SC Code Visit Inpatient E&M: 92219 Subs Hosp L2
[2018-03-31 14:47] VITALS: BP 109/63; PULSE 56; RESP 16; TEMP 37.1
[2018-03-31] MEDS: Acetaminophen 325 MG Tablet 650 MG PO (14:53)
[2018-03-31] MEDS: Methocarbamol 750 MG Tablet PO ×2 (14:53→21:56)
[2018-03-31 18:17] VITALS: BP 134/78; PULSE 58; RESP 18; TEMP 36.7
[2018-03-31] MEDS: Aspirin 81 MG TAB.CHEW PO (21:56)
[2018-03-31 22:00] VITALS: BP 101/58; PULSE 61; RESP 18; TEMP 36.9
[2018-04-01] MEDS: Buprenorphine HCl 2 MG TAB.SUBL SL (04:48)
[2018-04-01] MEDS: hydrOXYzine PAM 25 MG Capsule 50 MG PO (04:48)
[2018-04-01 04:51] VITALS: BP 130/75; PULSE 56; RESP 16; TEMP 37.1
--- NOTE | 2018-04-01 07:18 | DCINST_ITS ---
- Discharge Diagnoses Current Active Problems: Current Active and Chronic Problems Opioid withdrawal (Acute) Reason(s) for Visit for Discharge Instructions: Acute opioid withdrawal You will use the following diet at home:: Regular Your food should be the consistency of: Regular Your liquids should be the consistency of: Regular/Thin Discharge Activity: Return to Normal Activity Additional Instructions: You are advised to quit using pain medications and heroin as well as cigarettes. Follow-up with outpatient drug rehab programs as planned. Allergies/Adverse Reactions: Allergies No Known Allergies Allergy (Verified 01/30/18 03:11) Medications to take at Discharge Aspirin [Aspirin, Baby] 81 mg PO QHS 03/19/13 Tetrahydrozoline HCl [Eye Drops] 1 drop EACH EYE QHS 02/06/15 Primary Care Physician: Julissa García NP-C [Primary Care Provider] - Please follow up with your Primary Care Physician in: within 2 weeks Test Results: Test results from this visit will be discussed in further detail at your follow- up appointment, if applicable. Proposed Discharge Date: 04/01/18
--- NOTE | 2018-04-01 07:19 | DS.PCM_ITS ---
Discharge Date and Diagnosis Date of Admission: 03/29/18 Date of Discharge: 04/01/18 - Primary Discharge Diagnosis Active and Suspected Problems Opioid withdrawal (Acute) Nicotine dependency - Secondary Discharge Diagnosis Chronic Problems Status post femoropopliteal bypass surgery (Chronic) Hyperlipemia (Chronic) Smoking (Chronic) Peripheral arterial occlusive disease (Chronic) Hospital Course and Treatment None Operations: None Procedures: None Summary of Care Provided: 62 y/o male with opioid use disorder, PAD s/p fem-pop comes in with nausea, muscle aches, and is admitted for medical stabilization. He uses heroin and prescription pain medicines ongoing for more than 10 years. He was admitted and monitored for opioid withdrawal with improvement. He was counseled on quitting smoking and use of heroin and pain medications. Patient will follow up with outpatient drug rehab program Subjective: On the day of discharge, patient had improvement in his generalised aches. He complained of feeling anxious about the future. Objective: Physical Exam General: Alert, Oriented x3, Cooperative HEENT: Atraumatic, PERRLA, EOMI, Normocephalic Oral: Moist Mucosa Neck: Supple, No JVD, Negative Carotid Bruits Lungs: Clear to auscultation, Normal air movement Cardiovascular: Regular rate, Regular Rhythm, Normal S1, Normal S2, No murmurs Abdomen: Bowel Sounds Present, Soft, Non Tender, Non-Distended, No Hepato- splenomegaly Extremities: No edema Skin: No rashes, No breakdown Musculoskeletal: No Tenderness to Palpation of Joints or Extremities Lymphatic: No Cervical, Supraclavicular, or Inguinal Adenopathy Neurological: Cranial nerves II-XII grossly intact, Neuro grossly intact Psych/Mental Status: Normal Affect, Appropriate - Physical Exam Vital Signs Temp Pulse Resp BP Pulse Ox 98.7 F 56 L 16 130/75 H 97 04/01/18 04:51 04/01/18 04:51 04/01/18 04:51 04/01/18 04:51 03/30/18 16:15 Oxygen Delivery Method Room Air Weight: 60.101 kg Body Mass Index (BMI) 23.1 Intake and Output for Last 24 Hours 03/30/18 03/31/18 04/01/18 23:59 23:59 23:59 Intake Total 1550 / 1550 1870 / 1870 480 / 480 Balance 1550 / 1550 1870 / 1870 480 / 480 Discharge Diet: Low fat/ Low Cholesterol, 2000 mg Sodium Diet Discharge Activity: Return to Normal Activity Home Medications: Medications to take at Discharge Aspirin [Aspirin, Baby] 81 mg PO QHS 03/19/13 Tetrahydrozoline HCl [Eye Drops] 1 drop EACH EYE QHS 02/06/15 Primary Care Physician: Julissa García NP-C [Primary Care Provider] - Please follow up with your Primary Care Physician in: within 2 weeks Disposition: Home Minutes spent on discharge:: 25 Patient Condition:: Stable Medical Necessity - Tobacco Use Smoking Status: Current every day smoker Tobacco Use: Cigarettes Meaningful Use Info Meaningful Use Diagnoses (Choose all that apply): None applicable Code Visit Inpatient E&M: 43027 Disch Hosp
[2018-04-01 07:43] VITALS: BP 116/60; PULSE 67; RESP 18; TEMP 36.8
[2018-04-01] MEDS: Ibuprofen 400 MG Tablet PO (07:54)
[2018-04-01] MEDS: Pramipexole Di-HCl 0.25 MG Tablet PO (07:55)
[2018-04-01] MEDS: Dicyclomine 10 MG Capsule 20 MG PO (07:55)
[2018-04-01] MEDS: Methocarbamol 750 MG Tablet PO (07:55)
== END 2018-04-01 10:19 | disposition home or self-care (01) | DRG 897 ==
PROVIDERS: Admitting Provider Internal Medicine; Family Provider Nurse Practitioner Family; PCP Nurse Practitioner Family; Referring Provider Internal Medicine; Visit Provider Internal Medicine
DX: F11.23 Opioid dependence with withdrawal (principal); F17.210 Nicotine dependence, cigarettes, uncomplicated; Z23 Encounter for immunization
CPT/HCPCS: 36415; 80053; 80307; 85025; 93005; 99406; 90686

== ENCOUNTER 2019-01-27 09:20 | Emergency (ER) | payer MEDICARE, SELFPAY ==
[2019-01-27 09:21] VITALS: BP 158/80; PULSE 75; RESP 18; TEMP 36.2; O2SAT 98; BMI 25.6
--- NOTE | 2019-01-27 09:47 | RAD_ITS ---
STUDY: X-RAY - ABDOMEN/PELVIS REASON FOR EXAM: Male, 63 years old. Constipation TECHNIQUE: Two AP supine views of the abdomen and pelvis. COMPARISON: April 07, 2016 low chest x-ray FINDINGS: Normal visualized lung bases. There is an unremarkable bowel gas pattern. There is no demonstrated free abdominal air. The visualized liver, spleen and kidneys are grossly normal in size and morphology. There is postoperative change in the bilateral inguinal regions. There are diffuse degenerative changes of the visualized lumbar spine. RAD/Abdomen Single View IMPRESSION: Nonspecific bowel gas pattern. No significant visualized stool burden. Electronically Signed: Annalisa Franks MD at 10:17 EDT Tel , Service support ,
--- NOTE | 2019-01-27 10:20 | ED.VIS.GEN ---
History of Present Illness Informant: Patient, Significant Other Onset: Month(s) - 2 months Context: Gradual Onset Timing: Continuous Quality: cramping Location: abdomen Current Severity: Mild Maximum Severity: Severe Worsened by: nothing Relieved by: dulcolax Associated Symptoms: constipation Narrative: 63-year-old male history of opioid abuse currently not on any opioids presents with acute on chronic constipation. Patient has been dealing with this issue for many years. He takes a Dulcolax in order to have a bowel movement and he is wondering today if there is a way where he can go daily normally without medication. He is not having any significant pain mild cramping. Last normal bowel movement yesterday. No vomiting or fevers. He has been urinating normally. Last colonoscopy was normal one year ago. Prior similar symptoms: Yes Recent Illness/Hospitalization: No <Buck Sweeney - Last Filed: 01/27/19 10:20> <Meche Ramirez - Last Filed: 01/27/19 15:18> Chief Complaint: Constipation Past Medical History Prior records reviewed: Yes Past Medical History: - - History of opioid abuse Surgical History: colectomy, - - PAD s/p fem-pop bypass, back surgery Smoking Status: Current every day smoker - Family History Maternal Family History: Reports: No pertinent history Paternal Family History: Reports: No pertinent history <Buck Sweeney - Last Filed: 01/27/19 10:20> <Meche Ramirez - Last Filed: 01/27/19 15:18> - Allergies and Home Meds Allergies/Adverse Reactions: Allergies No Known Allergies Allergy (Verified 01/27/19 09:20) Primary Care Physician: [facility] [Outside] Julissa García NP-C [Primary Care Provider] - Physical Exam Vital Signs/Narrative: Vital Signs Temp Pulse Resp BP Pulse Ox 01/27/19 09:21 97.1 F L 75 18 158/80 H 98 <Buck Sweeney - Last Filed: 01/27/19 10:20> Diagnostic/Tx/Re-eval - Medical Decision Making Patient's abdomen is soft and nontender nondistended. KUB shows no signs of acute obstruction or other acute findings. Patient is tolerating by mouth. This is a chronic issue. Discussed with him the importance of following up with gastroenterology. He has had a colonoscopy within the past 1 year. Will prescribe Bentyl for his abdominal discomfort as well as MiraLAX. Discussed increasing water intake. He will call for follow-up with his commercial credit officer this week. Return precautions to the emergency department were reviewed. Patient agreeable with plan of care and all questions were answered. He was discharged home. <Buck Sweeney - Last Filed: 01/27/19 10:20> - Medical Decision Making Patient seen and evaluated with PA. Patient has a long-standing history of constipation. He uses Dulcolax regularly. Patient sitting at bedside no acute distress. Heart is regular rate and rhythm. Lungs are clear. Abdomen is soft with mild diffuse tenderness. Active bowel sounds noted. X-rays are obtained with no evidence of obstruction or other acute findings. He will be given Bentyl to help with abdominal cramping and will be switched to MiraLAX. He will follow-up with GI. <Meche Ramirez - Last Filed: 01/27/19 15:18> ED Disposition <Buck Sweeney - Last Filed: 01/27/19 10:20> <Meche Ramirez - Last Filed: 01/27/19 15:18> - Plan for ED Patient: Disposition: Home or Assisted Living Diagnosis: Constipation Instructions: CONSTIPATION (Adult) Prescriptions: Dicyclomine HCl [Bentyl] 20 mg PO TIDAC #20 cap Prescription Printed Polyethylene Glycol 3350 [Miralax] 17 gm PO DAILY #119 powder Prescription Printed Referrals: Julissa García NP-C [Primary Care Provider] - [facility] [Outside]
[2019-01-27 10:46] VITALS: PULSE 52; RESP 16
== END 2019-01-27 10:50 | disposition home or self-care (01) ==
LOC: ED 10:44
PROVIDERS: Emergency Provider Physician Assistant Medical; Family Provider Nurse Practitioner Family; PCP Nurse Practitioner Family
DX: K59.00 Constipation, unspecified (principal); Z79.82 Long term (current) use of aspirin; Z79.899 Other long term (current) drug therapy; F17.200 Nicotine dependence, unspecified, uncomplicated; Z90.49 Acquired absence of other specified parts of digestive tract
CPT/HCPCS: 74018; 99282

== ENCOUNTER 2019-06-17 08:54 | Emergency (ER) | payer MEDICARE, OTHER, SELFPAY ==
[2019-06-17 08:55] VITALS: BP 155/97; PULSE 77; RESP 16; TEMP 37.1; O2SAT 98; BMI 23.5
--- NOTE | 2019-06-17 09:09 | ED.VISSUMM ---
- ER Visit Summary Date of Service: 06/17/19 Chief Complaint: [Right leg pain] History of Present Illness: The patient is a 64 M [presents the emergency department complaint of pain in his right buttock that radiates down to his foot. Patient states he has had pain like this in the past associated with his sciatica. Patient states he has not had a flareup for several years. Patient does have history of some back pain issues and has had 2 back surgeries last one being in 2010. Patient last had an MRI about 2 years ago and followed up with an orthopedic surgeon in [place] who told him that he was not a surgical candidate at that time. Patient takes Aleve for pain and really has not had much relief with this pain that he said for about 2 days now. Denies any weakness in extremity. Patient denies any change in bowel bladder function. He denies any saddle anesthesia. Patient has not had any falls or injuries.] Physical Examination: [HEENT-PERRLA, EOMI. Cranial nerves II through XII grossly intact. TMs clear. Mucous membranes moist. No adenopathy. Cardiovascular-regular rate and rhythm without murmur or ectopy Lungs-clear to auscultation, chest wall stable without crepitus or subcu emphysema Abdomen-normoactive bowel sounds, soft, nontender, no rebound or rigidity, no peritoneal signs. Back exam-patient has old healed surgical scar over the lumbar spine. No bony tenderness on the thoracic or lumbar spine. Patient does have tenderness into the right buttock and piriformis that seems to reproduce his pain. Has a positive straight leg raise with pain at about 30 degrees while seated. He has normal deep tendon reflexes are plus 2 out of 4 bilaterally at the patella and Achilles. Patient has normal L5 extension bilaterally. Patient has normal sensation to light touch. Extremities-intact ?4, normal range of motion, normal pulses, atraumatic] Test Results: [None indicated] Emergency Department Course and Treatment: [Patient was given 1 [place] and of 20 mg of prednisone] Treatment Plan: [We will be treated with a Medrol Dosepak as well as [place] and Flexeril. Patient advised to follow-up with his primary care physician and orthopedic surgeon within the next 5 to 7 days. Advised to return if worsening pain, weakness in extremity, change in bowel bladder function, or condition should worsen anyway.] Disposition: [Discharged home in stable condition] Impression: [Sided sciatica] This note was generated with [employer] dictation software. It may contain incorrect words, spelling, and punctuation that were not noted in review of the chart prior to signing ED Disposition - Plan for ED Patient: Referrals: Julissa García, PROFESSIONAL FEE CODER-C [Primary Care Provider] -
--- NOTE | 2019-06-17 09:12 | ED.DEP ---
ED Disposition - Plan for ED Patient: Instructions: BACK PAIN w/ SCIATICA Prescriptions: cycloBENZAPRine HCl [Flexeril] 10 mg PO TID PRN #20 tab PRN Reason: Muscle Spasm Transmission Status: Pending to [facility] MethylPREDNISolone DosePak [Medrol DosePak] 4 mg PO UD #1 box Transmission Status: Pending to [facility] Hydrocodone Bitart/Apap 5-325 [Center 5MG-325MG] 1 tablet PO Q4H PRN PRN 2 Days #14 tablet PRN Reason: Pain Transmission Status: Sent to [facility] Referrals: Julissa García, MCKAYLA-C [Primary Care Provider] - 5-7 Days
[2019-06-17] MEDS: HYDROcodone Bitartrate/Apap 5/325 Tablet PO (09:17)
[2019-06-17] MEDS: predniSONE 20 MG Tablet PO (09:17)
== END 2019-06-17 09:46 | disposition home or self-care (01) ==
LOC: ED 09:28
PROVIDERS: Emergency Provider Emergency Medicine; Family Provider Nurse Practitioner Family; PCP Nurse Practitioner Family
DX: M54.31 Sciatica, right side (principal); I10 Essential (primary) hypertension; I73.9 Peripheral vascular disease, unspecified; Z72.0 Tobacco use; Z79.82 Long term (current) use of aspirin; Z79.899 Other long term (current) drug therapy
CPT/HCPCS: 99283

== ENCOUNTER 2019-11-30 16:21 | Emergency (ER) | payer MEDICARE, OTHER, SELFPAY ==
[2019-11-30 16:22] VITALS: BP 165/74; PULSE 70; RESP 18; TEMP 36.7; O2SAT 97; BMI 25.2
--- NOTE | 2019-11-30 16:42 | ED.VISSUMM ---
- ER Visit Summary Date of Service: 11/30/19 Chief Complaint: Right leg pain History of Present Illness: The patient is a 64 M who presents with right leg pain that has been getting progressively worse over the past 2 months. Patient states his pain is worse with walking. Patient states it stops with rest. Patient states he has a history of peripheral vascular disease. Patient has had bypass surgeries in both lower extremities. Patient describes his pain as aching and burning. Patient denies any trauma or injury. Patient states the pain is worse over the lateral aspect of the right lower extremity. Patient denies any paresthesias or weakness. Patient denies any color changes of his toes. Physical Examination: Vital signs are stable. Patient is afebrile. Patient is in no acute distress. Musculoskeletal exam reveals some mild tenderness over the lateral aspect of the right lower leg. There is some mild calf tenderness. There is no edema. There are good pedal and posterior tibial pulses. Capillary refill was less than 2 seconds in all digits. Sensation was intact to light touch in all digits. There is good range of motion of the lower extremity. There is no deformity. Strength is 5/5 bilaterally. There are no sensory deficits. Test Results: Venous duplex of the right lower extremity was ordered but was unable to be obtained today. Patient will be given an order for an outpatient venous duplex to be done tomorrow. Emergency Department Course and Treatment: Patient was given a dose of Lovenox here. Patient was instructed return as an outpatient for venous duplex testing of his right lower extremity tomorrow. Patient was instructed to keep the leg elevated. Smoking cessation was discussed. Patient was instructed to follow-up with his primary care physician in 5 to 7 days. Patient understood and was agreeable with the plan. All questions were answered. Disposition: Discharge home Impression: 1. Right leg pain This note was generated with [employer] dictation software. It may contain incorrect words, spelling, and punctuation that were not noted in review of the chart prior to signing ED Disposition - Plan for ED Patient: Disposition: Home or Assisted Living Diagnosis: Right leg pain Instructions: ED Acute Pain [facility] Referrals: Julissa García NP-C [Primary Care Provider] - 3-5 Days
[2019-11-30] MEDS: Enoxaparin 80 MG/0.8 ML Syringe 70 MG SC (17:43)
[2019-11-30 17:52] VITALS: BP 145/85; PULSE 87; RESP 18; O2SAT 98
== END 2019-11-30 17:53 | disposition home or self-care (01) ==
PROVIDERS: Emergency Provider Emergency Medicine; PCP Nurse Practitioner Family
DX: M79.604 Pain in right leg (principal); I73.9 Peripheral vascular disease, unspecified; M54.9 Dorsalgia, unspecified; G89.29 Other chronic pain; Z72.0 Tobacco use; Z79.82 Long term (current) use of aspirin; Z79.899 Other long term (current) drug therapy; Z85.828 Personal history of other malignant neoplasm of skin; Z95.820 Peripheral vascular angioplasty status with implants and grafts
CPT/HCPCS: 96372; 99282

== ENCOUNTER 2020-04-12 08:31 | Emergency (ER) | payer MEDICARE, SELFPAY ==
[2020-04-12 08:31] VITALS: BP 182/92; PULSE 16; RESP 17; TEMP 36.3; O2SAT 100; BMI 24.7
--- NOTE | 2020-04-12 08:40 | ED.DCSUM_ITS ---
History of Present Illness Chief Complaint: Back Informant: Patient, Family Narrative: Patient presents the emergency department with ongoing back pain. He tells me that several years ago he had an MRI and saw a spine surgeon in [place]. It was felt that surgery would not significantly change his pain. He states he is continued to worsen. There is nothing different about today's pain is there was yesterday. It is just ongoing. He tells me that yesterday when he came home from work he got sat down and he could feel the back pain getting worse. Is worse with movements. He denies any radicular symptoms. He denies any bowel or bladder symptoms. No fevers rashes or IV drug use. He does have a history of opioid abuse. states that they are thinking about calling a spine surgeon in [place]. - Past Medical History (1) Hyperlipemia Status: Chronic (2) Peripheral arterial occlusive disease Status: Chronic (3) Smoking Status: Chronic (4) Status post femoropopliteal bypass surgery Status: Chronic Past Medical History - Allergies and Home Meds Allergies/Adverse Reactions: Allergies No Known Allergies Allergy (Verified 04/12/20 08:31) Primary Care Physician: Leta Cruz,Out of [Primary Care Provider] - Prior records reviewed: Yes Surgical History: colectomy, - - PAD s/p fem-pop bypass, back surgery Lives: Spouse/ Significant Other Smoking Status: Current every day smoker Drugs: - - History of opioid abuse - Family History Maternal Family History: Reports: No pertinent history Paternal Family History: Reports: No pertinent history Review of Systems General: Denies: Chills, Fever, Sweats Eyes: Denies: Visual changes - bilaterally, Diplopia ENT: Denies: Rhinorrhea, Sore throat Cardiovascular: Denies: Chest pain, Palpitations Respiratory: Denies: Dyspnea, Cough, Dyspnea on exertion Gastrointestinal: Denies: Abdominal pain, Nausea, Vomiting, Diarrhea, Melena, Hematochezia Genitourinary: Denies: Dysuria, Hematuria, Frequency Musculoskeletal: Reports: Back pain. Denies: Extremity Pain Skin: Denies: Rash, Wounds Neurological: Denies: Headache, Weakness, Numbness Physical Exam Vital Signs/Narrative: Vital Signs Temp Pulse Resp BP Pulse Ox 04/12/20 08:31 97.4 F L 16 L 17 182/92 H 100 Inital Vital Signs reviewed: Yes General: Well nourished, Well developed, No Acute Distress Head: Normocephalic, Atraumatic Eyes: Perrl, EOMI ENT: Moist mucous membranes, No rhinorrhea Neck: Supple, Nontender Cardiovascular: Regular rate, Regular rhythm, No murmurs Respiratory: No distress, CTA bilaterally, Chest nontender Abdomen: Soft, Nontender, Nondistended, Normal bowel sounds Back: - - Patient complains of diffuse tenderness to palpation across the low back but particularly worse on the left side. Extremities: Nontender, No edema Skin: Normal color, No rash Neurological: Alert, Oriented x3, Cranial nerves II-XII grossly intact, Normal Strength, Normal Sensation, Normal DTR. Negative for: Parasthesia, Weakness Psychological: Normal affect, Normal Mood Diagnostic/Tx/Re-eval - Medical Decision Making This appears to be acute on chronic back pain. I am going to write for muscle relaxers and anti-inflammatories. There are no red flag physical complaints or findings. With his history of opioid abuse I be reluctant to prescribe opiates at this time. Would recommend follow-up with primary care. ED Disposition - Plan for ED Patient: Disposition: Home or Assisted Living Diagnosis: Back muscle spasm Instructions: ED SPASM Muscle Prescriptions: Ketorolac [Toradol] 10 mg PO Q8H PRN #15 tab PRN Reason: Pain Prescription Printed Diazepam [Valium] 5 mg PO Q8 PRN #15 tab PRN Reason: Muscle Spasm Prescription Printed Referrals: [facility] Doctor,Out of [Primary Care Provider] - As soon as possible
[2020-04-12] MEDS: Ketorolac 60 MG/2 ML Vial IM (09:00)
[2020-04-12] MEDS: Orphenadrine 60 MG/2 ML Ampul IM (09:00)
[2020-04-12 09:14] VITALS: BP 139/74; PULSE 72; RESP 15; O2SAT 98
== END 2020-04-12 09:17 | disposition home or self-care (01) ==
LOC: ED 09:02
PROVIDERS: Emergency Provider Emergency Medicine; PCP Nurse Practitioner Primary Care
DX: M62.830 Muscle spasm of back (principal); G89.29 Other chronic pain; E78.5 Hyperlipidemia, unspecified; I77.9 Disorder of arteries and arterioles, unspecified; F17.200 Nicotine dependence, unspecified, uncomplicated; Z79.82 Long term (current) use of aspirin; Z79.899 Other long term (current) drug therapy; Z90.49 Acquired absence of other specified parts of digestive tract
CPT/HCPCS: 96372; 99281

== ENCOUNTER → 2020-04-30 14:36 | Outpatient (CLI) | payer MEDICARE, SELFPAY ==
[2020-04-12 08:31] VITALS: BMI 24.7
--- NOTE | 2020-04-30 14:41 | CT_ITS ---
STUDY: LOW DOSE CT LUNG CANCER SCREENING REASON FOR EXAM: Male, 65 years old. LUNG SCREENING, 40+YR SMOKER X 1 PPD RADIATION DOSAGE (If Supplied By Facility): CTDIvol = ( 1.70 ) mGy, DLP = ( 51.70 ) mGycm TECHNIQUE: No contrast was administered. Low dose technique was utilized (average mAS-38 and kVp 120). 1.25 mm axial source images with a slice interval of 1.25-mm were reconstructed in lung windows. 2.5 mm axial source images with a slice interval of 2.5-mm were reconstructed in lung windows. 5.0 mm axial source images with a slice interval of 5.0-mm were reconstructed in soft tissue windows. Nodule measured using lung windows on PACS and/or independent workstation with automated measurement of minimum and maximum diameter. Nodule measurement reported as average diameter rounded to the nearest whole number. Growth is defined as an increase ins size of greater than 1.5 mm. COMPARISON: None. NODULES: No suspicious nodules are seen. Emphysema: Emphysematous changes more prominent in the upper lobes. Endobronchial lesion: None Aorta: Atherosclerotic plaque formation of the aortic arch and descending thoracic aorta. Coronary arteries: Coronary artery calcification. Heart: Unremarkable Pulmonary artery: Unremarkable Mediastinal nodes: Small benign appearing mediastinal lymph nodes. Other chest and abdominal findings: Degenerative changes of the thoracic spine. CT/Low Dose CT Lung Screening IMPRESSION: Lung-RADS category 2 - Continue annual screening with LDCT in 12 months. IMPORTANT NOTES FOR USE: ACR Lung-RADS Version 1.0 Assessment Categories Release Date: October 14, 2013 Category: Coded 0-4 bases on nodule(s) with highest degree of suspicion. Negative screen is defined as categories 1 and 2; a positive screen is defined as categories 3 and 4. Category 3 and 4A nodules that are unchanged on interval CT should be coded as category 2, and individuals returned to screening in 12 months. Category 4X: Category 3 or 4 nodules with additional imaging findings that increase the suspicion of lung cancer, such as spiculation, GGN that doubles in size in 1 year, enlarged lymph notes, etc. Category Modifiers: S (significant finding unrelated to lung cancer) and C (prior history of treated lung cancer) may be added to the 0-4 Lung-RADS Electronically Signed: Jonathan Hernandez, at 15:12 EST , Service support ,
== END ==
PROVIDERS: PCP Nurse Practitioner Primary Care; Referring Provider Nurse Practitioner Primary Care; Visit Provider Nurse Practitioner Primary Care
DX: Z12.2 Encounter for screening for malignant neoplasm of respiratory organs (principal); Z87.891 Personal history of nicotine dependence
CPT/HCPCS: G0297

== ENCOUNTER 2020-07-18 09:29 | Emergency (ER) | payer MEDICARE, SELFPAY ==
[2020-07-18 09:30] VITALS: BP 163/88; PULSE 64; RESP 16; TEMP 36.4; O2SAT 99; BMI 24.7
--- NOTE | 2020-07-18 10:03 | ED.DCSUM_ITS ---
- ER Visit Summary Date of Service: 07/18/20 Chief Complaint: Bilateral hand pain History of Present Illness: The patient is a 65 M who works with a [employer]. He complains of pain to his bilateral hands at the base of his thumbs. This has been going on for weeks. No other complaints. Physical Examination: Vitals reviewed. Alert and oriented. No acute distress. Normal inspection. Tenderness to palpation his bilateral first MCP joints. Positive Devendra test. Neurovascularly intact. Test Results: None indicated Emergency Department Course and Treatment: Patient appears to have arthritis or dequervains tenosynovitis. Will be placed in splints. Rest. Ice. Elevate. Anti-inflammatories. Follow-up with orthopedics. Treatment Plan: As above Disposition: Discharge Impression: Bilateral de Quervain's tenosynovitis This note was generated with [employer] dictation software. It may contain incorrect words, spelling, and punctuation that were not noted in review of the chart prior to signing ED Disposition - Plan for ED Patient: Referrals: Myles Cooper SENIOR DATA SCIENTIST, SENIOR DATA SCIENTIST-C [Primary Care Provider] -
--- NOTE | 2020-07-18 10:04 | ED.DEP ---
ED Disposition - Plan for ED Patient: Instructions: ED Tendonitis Prescriptions: Naproxen [Naprosyn] 500 mg PO BID PRN #20 tab Prescription Printed Prednisone 40 mg PO DAILY 4 Days #16 tab Prescription Printed Referrals: Miles Eckert MD [STAFF PHYSICIAN] -
[2020-07-18] MEDS: predniSONE 20 MG Tablet 40 MG PO (10:12)
[2020-07-18] MEDS: Naproxen 500 MG Tablet PO (10:12)
== END 2020-07-18 10:24 | disposition short-term general hospital (02) ==
PROVIDERS: Emergency Provider Emergency Medicine; PCP Nurse Practitioner Primary Care
DX: M65.4 Radial styloid tenosynovitis [de Quervain] (principal); I10 Essential (primary) hypertension; Z72.0 Tobacco use; Z79.82 Long term (current) use of aspirin; Z79.899 Other long term (current) drug therapy
CPT/HCPCS: 99282

== ENCOUNTER 2020-08-05 17:39 | Observation (INO) | payer MEDICARE, SELFPAY ==
[2020-08-05] VITALS (9 sets, daily range): BP systolic 117–145; BP diastolic 61–86; PULSE 50–66; RESP 16–19; TEMP 35.7–36.4; O2SAT 96–99; BMI 26.3; BMI 26.4; BMI 26.2
--- NOTE | 2020-08-05 18:17 | ED.VIS.GEN ---
History of Present Illness Chief Complaint: Chest Pain Informant: Patient Narrative: 71-year-old male presenting with chest pain and points to the center of his chest. He states it feels like pressure at times and other times it feels like burning. Patient states he does have a slight cough and mild shortness of breath. Patient states he has a history of CABG x2, hyperlipidemia, peripheral vascular disease. Patient states that he had mild lightheadedness. No history of DVT/PE. - Past Medical History (1) Hyperlipemia Status: Chronic (2) Peripheral arterial occlusive disease Status: Chronic Past Medical History - Allergies and Home Meds Allergies/Adverse Reactions: Allergies No Known Allergies Allergy (Verified 07/18/20 09:32) Prior records reviewed: Yes Past Medical History: - - Hypertension hypertension Surgical History: colectomy, - - PAD s/p fem-pop bypass, back surgery Smoking Status: Current every day smoker Alcohol: None Drugs: None - Family History Maternal Family History: Reports: No pertinent history Paternal Family History: Reports: No pertinent history Review of Systems General: Denies: Chills, Fever, Sweats Eyes: Denies: Visual changes - bilaterally, Diplopia ENT: Denies: Rhinorrhea, Sore throat Cardiovascular: Reports: Chest pain. Denies: Palpitations Respiratory: Reports: Dyspnea, Cough. Denies: Dyspnea on exertion Gastrointestinal: Denies: Abdominal pain, Nausea, Vomiting, Diarrhea, Melena, Hematochezia Genitourinary: Denies: Dysuria, Hematuria, Frequency Neurological: Reports: -. Denies: Parasthesia Psych: Denies: Depression, Anxiety Physical Exam Vital Signs/Narrative: Vital Signs Temp Pulse Resp BP Pulse Ox 08/05/20 17:42 97 F L 64 16 145/70 H 98 08/05/20 17:40 97.1 F L 66 16 145/70 H 98 Inital Vital Signs reviewed: Yes General: Well nourished, No Acute Distress Head: Normocephalic, Atraumatic Eyes: Perrl, EOMI. Negative for: Pale conjunctiva ENT: Moist mucous membranes, No rhinorrhea Cardiovascular: Regular rate, Regular rhythm Respiratory: No distress, CTA bilaterally Extremities: No edema Skin: Normal color, No rash. Negative for: Cyanosis, Diaphoresis Neurological: Alert, Oriented x3, Cranial nerves II-XII grossly intact, - Psychological: Normal affect, Normal Mood Diagnostic/Tx/Re-eval Clinical Impression(s) from Imaging Studies Brain CT 08/05/20 18:53 IMPRESSION: No acute intracranial or calvarial abnormality. There is no major interval change. Electronically Signed: Primo Chino DO at 19:23 EST Tel [phone], Service support , Chest X-Ray 08/05/20 19:43 IMPRESSION: No acute cardiopulmonary disease or major interval change. Electronically Signed: Primo Chino DO at 20:22 EST Tel [phone], Service support , Laboratory Data 08/05/20 08/05/20 08/05/20 17:50 17:50 17:50 WBC 13.0 H RBC 4.09 L Hgb 12.9 L Hct 38.7 L MCV 94.6 H MCH 31.5 MCHC 33.3 RDW Std Deviation 49.6 H RDW Coeff of Milli 14.2 Plt Count 237 MPV 12.0 Immature Gran % (Auto) 0.600 Neut % (Auto) 42.9 L Lymph % (Auto) 47.4 H [place] % (Auto) 5.8 Eos % (Auto) 2.8 Baso % (Auto) 0.5 Absolute Neuts (auto) 5.6 Absolute Lymphs (auto) 6.18 H Nucleated RBC % 0 Differential Comment SCANNED PT 12.2 INR 1.0 D-Dimer Quant (PE/DVT) Sodium 137 Potassium 4.1 Chloride 105 Carbon Dioxide 28.0 Anion Gap 4 L BUN 27 H Creatinine 1.22 Estim Creat Clear Calc 47.93 Est GFR (MDRD) Af Amer 76 Est GFR (MDRD) Non-Af 63 BUN/Creatinine Ratio 22.1 H Glucose 103 Calcium 9.0 Total Bilirubin 0.50 AST 17 ALT 44 Alkaline Phosphatase 86 Troponin I Total Protein 7.0 Albumin 4.0 Globulin 3.0 Albumin/Globulin Ratio 1.3 08/05/20 08/05/20 17:50 17:50 WBC RBC Hgb Hct MCV MCH MCHC RDW Std Deviation RDW Coeff of Milli Plt Count MPV Immature Gran % (Auto) Neut % (Auto) Lymph % (Auto) [place] % (Auto) Eos % (Auto) Baso % (Auto) Absolute Neuts (auto) Absolute Lymphs (auto) Nucleated RBC % Differential Comment PT INR D-Dimer Quant (PE/DVT) 0.35 Sodium Potassium Chloride Carbon Dioxide Anion Gap BUN Creatinine Estim Creat Clear Calc Est GFR (MDRD) Af Amer Est GFR (MDRD) Non-Af BUN/Creatinine Ratio Glucose Calcium Total Bilirubin AST ALT Alkaline Phosphatase Troponin I < 0.015 Total Protein Albumin Globulin Albumin/Globulin Ratio - Rhythm Strip Rhythm Strip: Sinus Rhythm Rate: 62 - Medical Decision Making Patient presents with chest pain which is intermittent and described as pressure-like or burning at times. Patient had EKG performed on arrival which shows a sinus rhythm at 62 bpm without signs of ischemic change. Chest x-ray is interpreted by myself shows no acute cardiopulmonary process. Patient CBC shows a slight leukocytosis of 13,000 with no source on his chest x-ray. Hemoglobin hematocrit are stable. Patient's GFR is normal. Electrolytes are normal. Patient has negative troponin. Heart score 4. I feel patient should be admitted to the hospital. He is given aspirin for going to the floor. Patient admitted in stable condition. Impression: Chest pain ED Disposition - Plan for ED Patient: Disposition: Acute Care Hospital [facility]
[2020-08-05 18:28] LABS: Absolute Lymphocyte Count 6.18 X10^3/uL (0.83-4.51); Absolute Neutrophil Count 5.6 X10^3/uL (2.0-7.7); Basophil# 0.06 X10^3/uL; Basophil% 0.5 % (0-1); Eosinophil# 0.36 X10^3/uL; Eosinophils% 2.8 % (0-5); Hematocrit 38.7 % (40-54); Hemoglobin 12.9 g/dL (13.0-16.5); Lymphocyte # 6.18 X10^3/ul (4.0); Lymphocyte % 47.4 % (19-41); Mean Corp Hgb Conc 33.3 g/dL (32-36); Mean Corpuscular Hgb 31.5 pg (27.0-32.0); Mean Corpuscular Volume 94.6 fL (80-94); Monocyte# 0.75 X10^3/uL; Monocyte% 5.8 % (0-10); NRBC Flagged by Analyzer 0 % (0-5); Neutrophil # 5.61 X10^3/uL (2.7-7.7); Neutrophil % 42.9 % (47-70); POSITIVE DIFFERENTIAL YES; POSITIVE MORPHOLOGY YES; Platelet Count 237 K/mm3 (150-450); RBC Distribution Width CV 14.2 % (11.6-14.6); RBC Distribution Width SD 49.6 fl (35.1-43.9); Red Blood Count 4.09 M/mm3 (4.6-6.2)
[2020-08-05 18:29] LABS: Differential Indicated SCAN CRITERIA MET
[2020-08-05 18:38] LABS: Prothrombin Time (Protime)PT. 12.2 SECONDS (11.7-14.9)
--- NOTE | 2020-08-05 18:42 | EKG12_ITS ---
Test Reason : CP Blood Pressure : / mmHG Vent. Rate : 045 BPM Atrial Rate : 045 BPM P-R Int : 186 ms QRS Dur : 098 ms QT Int : 422 ms P-R-T Axes : 053 053 048 degrees QTc Int : 365 ms Sinus bradycardia Otherwise normal ECG When compared with ECG of 05-AUG-2020 17:49, MANUAL COMPARISON REQUIRED, DATA IS UNCONFIRMED Confirmed by KAREN BRYAN, ALEXANDRE ([id number]), editor trade journal SCARLETT SALDIVAR ([id number]) on 08/07/2020 8:19:52 AM Referred By: ROSETTA Confirmed By:ALEXANDRE JONES MD
[2020-08-05 18:45] LABS: ALB/GLOB Ratio 1.3 RATIO (0.9-2.4); AST(SGOT) 17 U/L (15-37); Alanine Aminotransfer ALT/SGPT 44 U/L (16-61); Alkaline Phosphatase 86 U/L (45-117); Anion Gap 4 (5-15); BUN 27 mg/dL (7-18); BUN/Creat Ratio 22.1 RATIO (10-20); Chloride 105 mmol/L (98-107); Creatinine, Serum 1.22 mg/dL (0.70-1.30); EST Glomerular Filtration Rate 63 mL/min (>60); Est Glom Filt Rate - Afr Amer 76 mL/min (>60); Estimated Creatinine Clearance 47.93 ml/min; Glucose 103 mg/dL (74-106); Potassium 4.1 mmol/L (3.5-5.1); Sodium Level 137 mmol/L (136-145)
[2020-08-05 18:52] LABS: Differential Comment SCANNED
--- NOTE | 2020-08-05 18:53 | CT_ITS ---
STUDY: CT BRAIN WITHOUT CONTRAST REASON FOR EXAM: Male, 65 years old. Chest pain. Shortness of breath and hypertension. RADIATION DOSAGE (If Supplied By Facility): CTDIvol = ( 44.99 ) mGy, DLP = ( 779.24 ) mGycm TECHNIQUE: Transaxial CT imaging of the brain was performed without administration of intravenous contrast material. Individualized dose optimization techniques were used for this CT. COMPARISON: 01/27/2016. FINDINGS: Normal soft tissue structures. Normal calvarium. Normal size ventricles and extra-axial spaces for the patient''s age. Normal white matter tracts of the cerebral hemispheres. There are small punctate calcifications of the basal ganglia which are seen in the aging brain as a normal variant. Normal brainstem. Normal cerebellum. There is no intracranial hemorrhage. There are no findings of an acute ischemic infarction. Normal visualized paranasal sinuses. CT/Brain/Head without Contrast IMPRESSION: No acute intracranial or calvarial abnormality. There is no major interval change. Electronically Signed: Primo Chino DO at 19:23 EST Tel [phone], Service support ,
[2020-08-05 19:23] LABS: D-Dimer Quantitative (DVT/PE) 0.35 FEU/ug/m (0.27-0.49)
--- NOTE | 2020-08-05 19:43 | RAD_ITS ---
STUDY: X-RAY CHEST REASON FOR EXAM: Male, 65 years old. Chest pain since this morning. Chest tightness. Shortness of breath. TECHNIQUE: Single AP portable view of the chest. COMPARISON: 09/26/2017. FINDINGS: The lungs are clear and expanded. There is no demonstrated pleural abnormality. Normal size heart. Normal mediastinum and tricia. Normal visualized pulmonary arteries. There is atherosclerotic calcification of the aortic arch with tortuosity. There are no osseous changes. There is degenerative osteoarthritis of the bilateral shoulders. There is no demonstrated abnormality of the visualized soft tissue structures of the upper abdomen. RAD/Chest 1 View (Portable) IMPRESSION: No acute cardiopulmonary disease or major interval change. Electronically Signed: Primo Chino DO at 20:22 EST Tel [phone], Service support ,
--- NOTE | 2020-08-05 21:00 | HP.PCM_ITS ---
Problem List (1) Status post femoropopliteal bypass surgery Status: Chronic (2) Hyperlipemia Status: Chronic Qualifiers: Hyperlipidemia type: unspecified Qualified Code(s): E78.5 - Hyperlipidemia, unspecified (3) Smoking Status: Chronic (4) Peripheral arterial occlusive disease Status: Chronic (5) Chest pain Status: Acute History of Present Illness Date of Admission: 08/05/20 Chief Complaint: Chest pain The patient is a 65 year old M with a significant history of hypertension; previous opioid abuse; tobacco abuse; hyperlipidemia; status post bilateral femoral popliteal bypass who presents emergency department with intermittent substernal chest pain that started on the same day of presentation. He reports his chest pain as a pressure-like. The pain last for about 2 to 3 minutes and returns about every 15 minutes. The chest pain is nonradiating. He denies any nausea or vomiting. Associated with his symptoms is shortness of breath and headache. He reports having a couple of stress test in the past. He reports that because he was unable to achieve the targeted heart rate at previous stress test treadmill stress test were converted to a chemical one. Past Medical History Past Medical History (Chronic Problems): Chronic Problems Status post femoropopliteal bypass surgery (Chronic) Hyperlipemia (Chronic) Smoking (Chronic) Peripheral arterial occlusive disease (Chronic) Allergies No Known Allergies Allergy (Verified 07/18/20 09:32) Home Medications: Ambulatory Orders Medication Instructions Recorded Aspirin [Aspirin, Baby] 81 mg PO QHS 03/19/13 Atorvastatin Calcium 40 mg PO QHS 04/12/20 Diazepam [Valium] 5 mg PO Q8 PRN #15 tab 04/12/20 Latanoprost 0.005% [Xalatan 1 drp EACH EYE QHS 04/12/20 Opthalmic] Naproxen [Naprosyn] 500 mg PO BID PRN #20 tab 07/18/20 Losartan Potassium [Cozaar] 25 mg PO DAILY 08/05/20 Surgical History: colectomy, - - PAD s/p fem-pop bypass, back surgery Smoking Status: Current every day smoker Tobacco Use: Cigarettes Alcohol: None Drugs: None - *Family History Maternal History Items: Cancer, Heart Disease, - - His brother from massive heart attack at age 48. Paternal History Items: Cancer Review of Systems Constitutional: Denies: Chills, Fever, Weight Change HEENT: Denies: Head Aches, Sinus Congestion, Sinus Drainage Cardiovascular: Reports: Chest Pain. Denies: Palpitations Respiratory: Denies: Cough, Shortness of breath at rest, Sputum production Gastrointestinal: Denies: Abdominal Pain, Nausea, Vomiting Genitourinary: Denies: Dysuria Musculoskeletal: Denies: Joint Pain, Joint Tenderness Skin: Denies: Rash, Wounds Neurological: Denies: Numbness, Tingling, Focal weakness Psychiatric: Denies: Anxiety, Depression, Homicidal Ideations, Suicidal Ideations Hematologic/ Lymphatic: Denies: Easy Bruising, Easy Bleeding VTE Information - Inpt Only VTE Present on Admission: No VTE Mechan Device Prophylaxis: SCD's VTE Pharm Prophylaxis ordered?: No Patient Problems: Active and Suspected Problems Chest pain (Acute) - Physical Exam Vitals/I&O's: Vital Signs Temp Pulse Resp BP Pulse Ox 96.3 F L 53 L 16 121/61 H 96 08/05/20 19:43 08/05/20 19:43 08/05/20 19:43 08/05/20 19:43 08/05/20 19:43 Oxygen Flow Rate (L/min) 2 Oxygen Delivery Method Nasal Cannula Weight: 67.5 kg Body Mass Index (BMI) 26.3 Intake and Output for Last 24 Hours 08/03/20 08/04/20 08/05/20 23:59 23:59 23:59 Intake Total 500 / 500 Balance 500 / 500 General: Alert, Oriented x3, Cooperative HEENT: Atraumatic, PERRLA, EOMI, Normocephalic Neck: Supple, No JVD, Negative Carotid Bruits Lungs: Clear to auscultation, Normal air movement Cardiovascular: Normal S1, Normal S2, No murmurs, Bradycardic Abdomen: Bowel Sounds Present, Soft, Non Tender Extremities: No edema, Capillary Refill Less than 3 Seconds Skin: No rashes, No breakdown Musculoskeletal: No Tenderness to Palpation of Joints or Extremities Neurological: Cranial nerves II-XII grossly intact Psych/Mental Status: Normal Affect, Appropriate Microbiology Past 72 Hours 08/05/20 18:45 Mucosa - Nose SARS-CoV-2 Antigen (Rapid) - Final Laboratory Results 08/05/20 17:50: WBC 13.0 H, RBC 4.09 L, Hgb 12.9 L, Hct 38.7 L, MCV 94.6 H, MCH 31.5, MCHC 33.3, RDW Std Deviation 49.6 H, RDW Coeff of Milli 14.2, Plt Count 237, MPV 12.0, Immature Gran % (Auto) 0.600, Neut % (Auto) 42.9 L, Lymph % (Auto) 47.4 H, [place] % (Auto) 5.8, Eos % (Auto) 2.8, Baso % (Auto) 0.5, Absolute Neuts (auto) 5.6, Absolute Lymphs (auto) 6.18 H, Nucleated RBC % 0, Differential Comment SCANNED 08/05/20 17:50: Sodium 137, Potassium 4.1, Chloride 105, Carbon Dioxide 28.0, Anion Gap 4 L, BUN 27 H, Creatinine 1.22, Estim Creat Clear Calc 47.93, Est GFR (MDRD) Af Amer 76, Est GFR (MDRD) Non-Af 63, BUN/Creatinine Ratio 22.1 H, Glucose 103, Calcium 9.0, Total Bilirubin 0.50, AST 17, ALT 44, Alkaline Phosphatase 86, Total Protein 7.0, Albumin 4.0, Globulin 3.0, Albumin/Globulin Ratio 1.3 08/05/20 17:50: PT 12.2, INR 1.0 08/05/20 17:50: D-Dimer Quant (PE/DVT) 0.35 08/05/20 17:50: Troponin I < 0.015 Assessment/Plan All Active Problems Chest pain (Acute) The patient is a 65 year old M with a significant history of hypertension; previous opiate abuse; tobacco abuse; hyperlipidemia; status post bilateral femoral popliteal bypass who presents emergency department with intermittent substernal chest pain that started on the same day of presentation. Chest pain Place on a monitored bed at progressive care unit Radiologist impression of chest x-ray: No acute cardiopulmonary disease or major interval change. Actual CXR image was independently visualized. No acute cardiopulmonary process was noted. Actual EKG tracing was independently visualized. EKG tracing showed sinus rhythm. Patient was sinus bradycardia on nuclear monitoring technician. ASA 81 mg p.o. daily continued. High intensity statin continued. Losartan continued. SL NTG 0.4 mg prn as needed for chest pain ordered Morphine as needed for pain ordered We will check lipid panel. Serial cardiac enzymes ordered Stat EKG as needed for chest pain Dobutamine echocardiogram stress test in the AM if the cardiac enzymes are negative. Of notes patient had a dobutamine echocardiogram stress test in 2012. Hypertension Blood pressure is not within goal Losartan continued. Trend blood pressure and adjust blood pressure medications as necessary. Tobacco abuse Counselled. DVT prophylaxis SCD ordered OBSV E&M: 31291 Initial observation care L2
[2020-08-05] MEDS: Aspirin 81 MG TAB.CHEW 324 MG PO (21:33)
--- NOTE | 2020-08-05 22:21 | EKG12_ITS ---
Test Reason : CP Blood Pressure : / mmHG Vent. Rate : 062 BPM Atrial Rate : 062 BPM P-R Int : 168 ms QRS Dur : 090 ms QT Int : 380 ms P-R-T Axes : 066 052 048 degrees QTc Int : 385 ms Normal sinus rhythm Normal ECG Confirmed by KAREN BRYAN, ALEXANDRE ([id number]), pictures editor SCARLETT SALDIVAR ([id number]) on 08/10/2020 10:46:17 AM Referred By: JANICE/LING Confirmed By:ALEXANDRE JONES MD
[2020-08-05] MEDS: Latanoprost 0.005% 1 Bottle 1 DRP EACH EYE (22:35)
[2020-08-05] MEDS: Atorvastatin Calcium 40 MG Tablet PO (22:35)
[2020-08-06] VITALS (7 sets, daily range): BP systolic 131–134; BP diastolic 59–69; PULSE 45–52; RESP 16–20; TEMP 36.5–36.6; O2SAT 95–99
--- NOTE | 2020-08-06 05:00 | EKG12_ITS ---
Test Reason : AM EKG Blood Pressure : / mmHG Vent. Rate : 047 BPM Atrial Rate : 047 BPM P-R Int : 188 ms QRS Dur : 088 ms QT Int : 418 ms P-R-T Axes : 050 062 059 degrees QTc Int : 369 ms Sinus bradycardia Otherwise normal ECG When compared with ECG of 05-AUG-2020 22:31, MANUAL COMPARISON REQUIRED, DATA IS UNCONFIRMED Confirmed by KAREN BRYAN, ALEXANDRE ([id number]), industrial editor SCARLETT SALDIVAR ([id number]) on 08/07/2020 8:17:27 AM Referred By: DR ECHEVERRIA Confirmed By:ALEXANDRE JONES MD
[2020-08-06 05:11] LABS: Absolute Lymphocyte Count 3.72 X10^3/uL (0.83-4.51); Absolute Neutrophil Count 5.1 X10^3/uL (2.0-7.7); Basophil# 0.07 X10^3/uL; Basophil% 0.7 % (0-1); Eosinophil# 0.36 X10^3/uL; Eosinophils% 3.6 % (0-5); Hematocrit 38.4 % (40-54); Hemoglobin 12.5 g/dL (13.0-16.5); Lymphocyte # 3.72 X10^3/ul (4.0); Lymphocyte % 37.6 % (19-41); Mean Corp Hgb Conc 32.6 g/dL (32-36); Mean Corpuscular Hgb 31.4 pg (27.0-32.0); Mean Corpuscular Volume 96.5 fL (80-94); Mean Platelet Vol. 11.3 fl (6.2-12.0); Monocyte# 0.55 X10^3/uL; Monocyte% 5.6 % (0-10); NRBC Flagged by Analyzer 0 % (0-5); Neutrophil # 5.11 X10^3/uL (2.7-7.7); Neutrophil % 51.7 % (47-70); Platelet Count 199 K/mm3 (150-450); RBC Distribution Width CV 14.3 % (11.6-14.6); RBC Distribution Width SD 51.1 fl (35.1-43.9); Red Blood Count 3.98 M/mm3 (4.6-6.2); White Blood Count 9.9 K/mm3 (4.4-11.0)
[2020-08-06 05:31] LABS: Anion Gap 3 (5-15); BUN 29 mg/dL (7-18); BUN/Creat Ratio 27.9 RATIO (10-20); Calcium,Total 8.6 mg/dL (8.5-10.1); Chloride 107 mmol/L (98-107); Cholesterol 143 mg/dL (200); Creatinine, Serum 1.04 mg/dL (0.70-1.30); EST Glomerular Filtration Rate 76 mL/min (>60); Est Glom Filt Rate - Afr Amer 92 mL/min (>60); Estimated Creatinine Clearance 56.23 ml/min; Glucose 90 mg/dL (74-106); High Density Lipoprotein 69 mg/dL; Potassium 4.2 mmol/L (3.5-5.1); Sodium Level 138 mmol/L (136-145); Triglycerides 173 mg/dL; Very Low Density Lipoprotein 35 mg/dL (5-40)
[2020-08-06] MEDS: 0.9% Saline Lock 10 ML Syringe IV (06:16)
[2020-08-06] MEDS: Aspirin E.C. 81 MG Tablet PO (06:18)
[2020-08-06] MEDS: Losartan Potassium 25 MG Tablet PO (06:18)
--- NOTE | 2020-08-06 08:20 | NURSING ---
Off unit to stress test.
--- NOTE | 2020-08-06 10:33 | STRESSREP ---
Stress Test Report Date: 08-06-2020 Procedure: Pharmacologic stress nuclear imaging study Indications: Chest pain Consent: Per the patient Procedure: The patient underwent pharmacologic (Regadenoson 0.4mg ) evaluation with a peak heart rate of 77 beats per minute (50%predicted maximal heart rate) and a peak blood pressure of 138/72 mmHg. The baseline ECG demonstrated sinus bradycardia. The peak pharmacologic ECG demonstrated no obvious ECG changes. There were no cardiac dysrhythmias pretest, during pharmacologic infusion, or recovery. There was no complaint of chest discomfort during pharmacologic infusion or recovery. The examination was discontinued secondary to completion of protocol. Impression: 1. Pharmacologic (Regadenoson) evaluation 2. Peak pharmacologic ECG with no obvious ECG changes. 3. There were no cardiac dysrhythmias pretest, during pharmacologic infusion, or recovery. 4. Nuclear images pending Myocardial perfusion imaging study: Technique: The patient was injected with 11.8 millicuries of technetium 99m Cardiolite and subsequently rest SPECT Cardiolite nuclear imaging was obtained in the horizontal long, vertical long, and short axis views. The patient underwent pharmacologic (Regadenoson) evaluation with a peak heart rate of 77 beats per minute (50% percent predicted maximal heart rate) and a peak blood pressure of 138/72 mmHg. The patient was injected with 33.3 millicuries of technetium 99m Cardiolite and subsequently stress SPECT Cardiolite nuclear imaging was obtained in the horizontal long, vertical long, and short axis views. A gated Cardiolite study at peak stress was obtained. Interpretation: Rest and stress SPECT Cardiolite nuclear imaging status post realignment, normalization, and attenuation correction demonstrate the appearance of body motion during image acquisition and otherwise a small area of subtle diminished tracer uptake near the apical segments without significant change between rest and stress. There is end systolic thickening and brightening. The gated Cardiolite study demonstrates myocardial thickening and inward wall motion. The reported LVEF is 73 %. Impression: 1. Rest and stress SPECT Cardiolite nuclear imaging demonstrate evidence of body motion during image acquisition and otherwise a small area of subtle diminished tracer uptake near the apical segments without significant change between rest and stress appearing compatible with physiologic apical thinning with no myocardial perfusion changes considered diagnostic for associated stress-induced myocardial ischemia. 2. The gated Cardiolite study reports an LVEF of 73%. This note was generated with [employer] software. It may contain incorrect words, spelling, and punctuation that were not noted in checking the note before signing.
--- NOTE | 2020-08-06 12:19 | PCM.DC ---
- Discharge Diagnoses Current Active Problems: Current Active and Chronic Problems Status post femoropopliteal bypass surgery (Chronic) Hyperlipemia (Chronic) Smoking (Chronic) Peripheral arterial occlusive disease (Chronic) Chest pain (Acute) You will use the following diet at home:: Cardiac Call your doctor if you observe: Chest pain - especially if left sided and or associated with shortness of breath, nausea, dizziness. Allergies/Adverse Reactions: Allergies No Known Allergies Allergy (Verified 07/18/20 09:32) Medications to take at Discharge Aspirin [Aspirin, Baby] 81 mg PO QHS 03/19/13 Atorvastatin Calcium 40 mg PO QHS 04/12/20 Latanoprost 0.005% [Xalatan Opthalmic] 1 drp EACH EYE QHS 04/12/20 Naproxen [Naprosyn] 500 mg PO BID PRN #20 tab 07/18/20 Losartan Potassium [Cozaar] 25 mg PO DAILY 08/05/20 Primary Care Physician: Myles Cooper NP, MEDICAL LAB ASSISTANT-C [Primary Care Provider] - Within 2 Weeks Test Results: Test results from this visit will be discussed in further detail at your follow-up appointment, if applicable. Proposed Discharge Date: 08/06/20
--- NOTE | 2020-08-06 12:46 | PHA.DC.MR ---
Pharmacy Service has performed discharge medication reconciliation for this patient. No new medications at time of discharge review. Medications reviewed are from previously reported home medications. Home Medications Aspirin [Aspirin, Baby] 81 mg PO QHS 03/19/13 Atorvastatin Calcium 40 mg PO QHS 04/12/20 Latanoprost 0.005% [Xalatan Opthalmic] 1 drp EACH EYE QHS 04/12/20 Naproxen [Naprosyn] 500 mg PO BID PRN #20 tab 07/18/20 Losartan Potassium [Cozaar] 25 mg PO DAILY 08/05/20 The patient's discharge medication list was reviewed for discrepancies and discrepancies were resolved.
--- NOTE | 2020-08-06 15:11 | DS.PCM_ITS ---
Discharge Date and Diagnosis - Problem List Patient Problems: Active and Suspected Problems Chest pain (Acute) Date of Admission: 08/05/20 Date of Discharge: 08/13/20 - Primary Discharge Diagnosis Acute Problems: Active Problems Chest pain (Acute) - Secondary Discharge Diagnosis Chronic Problems: Chronic Problems Status post femoropopliteal bypass surgery (Chronic) Hyperlipemia (Chronic) Smoking (Chronic) Peripheral arterial occlusive disease (Chronic) Hospital Course and Treatment Imaging Results: 08/06/20 07:50 Nuclear Stress Test - Chemical [NM] Urgent Operations: None Procedures: Stress test Summary of Care Provided: The patient is a 65 year old M presents with midsternal chest pain. Nonradiating not associated any other constitutional symptoms. Patient underwent a cardiac work-up with cardiac enzymes, EKG and nuclear stress test. All of which were negative. Patient made aware of this and stated that this could be GI related she but no additional cardiac work-up is necessary at this time. He is comfortable with going home and case discussed with the patient and significant other at bedside. [] Patient Problems: Active and Suspected Problems Chest pain (Acute) - Physical Exam Vitals/I&O's: Vital Signs Temp Pulse Resp BP Pulse Ox 36.5 C L 49 L 18 132/69 H 99 08/06/20 13:14 08/06/20 13:14 08/06/20 13:14 08/06/20 13:14 08/06/20 13:14 Oxygen Flow Rate (L/min) 2 Oxygen Delivery Method Room Air Weight: 67 kg Body Mass Index (BMI) 26.2 Intake and Output for Last 24 Hours 08/04/20 08/05/20 08/06/20 23:59 23:59 23:59 Intake Total 620 / 620 285 / 285 Output Total 0 / 0 Balance 620 / 620 285 / 285 General: Alert, No apparent distress HEENT: Atraumatic, Normocephalic Oral: Moist Mucosa, No Gingival or Mucosal Lesions/ Ulcerations Neck: No Nodes, Thyroid Normal Size and Texture Lungs: Clear to auscultation, Normal air movement, No rhonchi, No wheeze, No rales Cardiovascular: Regular rate, Regular Rhythm, Normal S1, Normal S2, No murmurs Abdomen: Bowel Sounds Present, Soft, Non Tender, Non-Distended, No Hepato- splenomegaly Microbiology Past 72 Hours 08/05/20 18:45 Mucosa - Nose SARS-CoV-2 Antigen (Rapid) - Final Laboratory Results 08/05/20 17:50: WBC 13.0 H, RBC 4.09 L, Hgb 12.9 L, Hct 38.7 L, MCV 94.6 H, MCH 31.5, MCHC 33.3, RDW Std Deviation 49.6 H, RDW Coeff of Milli 14.2, Plt Count 237, MPV 12.0, Immature Gran % (Auto) 0.600, Neut % (Auto) 42.9 L, Lymph % (Auto) 47.4 H, [place] % (Auto) 5.8, Eos % (Auto) 2.8, Baso % (Auto) 0.5, Absolute Neuts (auto) 5.6, Absolute Lymphs (auto) 6.18 H, Nucleated RBC % 0, Differential Comment SCANNED 08/05/20 17:50: Sodium 137, Potassium 4.1, Chloride 105, Carbon Dioxide 28.0, Anion Gap 4 L, BUN 27 H, Creatinine 1.22, Estim Creat Clear Calc 47.93, Est GFR (MDRD) Af Amer 76, Est GFR (MDRD) Non-Af 63, BUN/Creatinine Ratio 22.1 H, Glucose 103, Calcium 9.0, Total Bilirubin 0.50, AST 17, ALT 44, Alkaline Phosphatase 86, Total Protein 7.0, Albumin 4.0, Globulin 3.0, Albumin/Globulin Ratio 1.3 08/05/20 17:50: PT 12.2, INR 1.0 08/05/20 17:50: D-Dimer Quant (PE/DVT) 0.35 08/05/20 17:50: Troponin I < 0.015 08/05/20 22:46: Troponin I < 0.015 08/06/20 01:30: Troponin I < 0.015 08/06/20 04:48: WBC 9.9, RBC 3.98 L, Hgb 12.5 L, Hct 38.4 L, MCV 96.5 H, MCH 31.4, MCHC 32.6, RDW Std Deviation 51.1 H, RDW Coeff of Milli 14.3, Plt Count 199, MPV 11.3, Immature Gran % (Auto) 0.800, Neut % (Auto) 51.7, Lymph % (Auto) 37.6, [place] % (Auto) 5.6, Eos % (Auto) 3.6, Baso % (Auto) 0.7, Absolute Neuts (auto) 5.1, Absolute Lymphs (auto) 3.72, Nucleated RBC % 0 08/06/20 04:48: Sodium 138, Potassium 4.2, Chloride 107, Carbon Dioxide 28.0, Anion Gap 3 L, BUN 29 H, Creatinine 1.04, Estim Creat Clear Calc 56.23, Est GFR (MDRD) Af Amer 92, Est GFR (MDRD) Non-Af 76, BUN/Creatinine Ratio 27.9 H, Glucose 90, Calcium 8.6, Troponin I < 0.015, Triglycerides 173, Cholesterol 143, LDL Cholesterol 39, VLDL Cholesterol 35, HDL Cholesterol 69 Discharge Diet: Low fat/ Low Cholesterol Discharge Activity: Return to Normal Activity Call your doctor if you observe: Chest pain - especially if left sided and or associated with shortness of breath, nausea, dizziness. Home Medications: Medications to take at Discharge Aspirin [Aspirin, Baby] 81 mg PO QHS 03/19/13 Atorvastatin Calcium 40 mg PO QHS 04/12/20 Latanoprost 0.005% [Xalatan Opthalmic] 1 drp EACH EYE QHS 04/12/20 Naproxen [Naprosyn] 500 mg PO BID PRN #20 tab 07/18/20 Losartan Potassium [Cozaar] 25 mg PO DAILY 08/05/20 Primary Care Physician: Myles Cooper NP, [employer]GE ASSEMBLER-C [Primary Care Provider] - Within 2 Weeks Please Follow Up With: Myles Cooper NP, [employer] BR[employer] ASSEMBLER-C Disposition: Home Minutes spent on discharge:: 28 Patient Condition:: Good Medical Necessity - Tobacco Use Smoking Status: Current every day smoker Tobacco Use: Cigarettes Meaningful Use Info Meaningful Use Diagnoses (Choose all that apply): None applicable OBSV E&M: 29400 Observation care discharge
== END 2020-08-06 12:20 | disposition home or self-care (01) ==
LOC: ED 20:40 → PCU 08-06 07:03
PROVIDERS: Admitting Provider Hospitalist; Emergency Provider Student in an Organized Health Care Education/Training Program; PCP Nurse Practitioner Primary Care
DX: R07.89 Other chest pain (principal); E78.5 Hyperlipidemia, unspecified; I73.9 Peripheral vascular disease, unspecified; R06.02 Shortness of breath; R42 Dizziness and giddiness; I10 Essential (primary) hypertension; F17.210 Nicotine dependence, cigarettes, uncomplicated; F11.11 Opioid abuse, in remission; Z79.899 Other long term (current) drug therapy; Z79.82 Long term (current) use of aspirin; Z95.1 Presence of aortocoronary bypass graft
CPT/HCPCS: 36415; 70450; 71045; 78452; 80048; 80053; 80061; 84484; 85025; 85379; 85610; 87426; 93005; 93017; 96360; 96361; 99218; 99284; 99406; A9500; J7040; A4216; G0378; J2785

== ENCOUNTER → 2023-06-07 | Outpatient (CLI) | payer MEDICARE, SELFPAY ==
[2023-06-07 14:32] LABS: Albumin, Serum 3.9 g/dL (3.2-5.0); BUN 24 mg/dL (7-18); BUN/Creat Ratio 20.9 RATIO (10-20); Calcium,Total 9.5 mg/dL (8.5-10.1); Chloride 109 mmol/L (98-107); Creatinine, Serum 1.15 mg/dL (0.70-1.30); EST Glomerular Filtration Rate 67 mL/min (>60); Est Glom Filt Rate - Afr Amer 81 mL/min (>60); Glucose 107 mg/dL (74-106); Phosphorus 2.7 mg/dL (2.5-4.9); Potassium 4.1 mmol/L (3.5-5.1); Sodium Level 138 mmol/L (136-145)
== END | disposition home or self-care (01) ==
LOC: LAB 14:04
PROVIDERS: PCP Nurse Practitioner Primary Care; Referring Provider Internal Medicine Pulmonary Disease; Visit Provider Internal Medicine Pulmonary Disease
DX: R05.9 Cough, unspecified (principal)
CPT/HCPCS: 36415; 80069

== ENCOUNTER → 2023-12-19 | Outpatient (CLI) | payer MEDICARE, SELFPAY ==
--- NOTE | 2023-12-19 18:02 | CT_ITS ---
EXAM: CT CHEST, LUNG CANCER SCREENING WITHOUT INTRAVENOUS CONTRAST CLINICAL INDICATION: history of nicotine dependence TECHNIQUE: Helically acquired images were obtained of the chest without intravenous contrast using low dose (LDCT) lung cancer screening protocol. This CT exam was performed using one or more of the following dose reduction techniques: automated exposure control, adjustment of the mA and/or kV according to patient size, and/or use of iterative reconstruction technique. COMPARISON: 04/30/2020 FINDINGS: LUNGS AND PLEURAL SPACES: There are is a slightly spiculated nodule in the right upper lobe on series 2 image 49 that measures 7 x 9 mm was not present on the previous exam. No pleural effusion or thickening. No pneumothorax. HEART: Unremarkable. Heart size is normal. No pericardial effusion. No significant coronary artery calcifications. MEDIASTINUM: Unremarkable. No mediastinal or hilar adenopathy. Esophagus is unremarkable. No hiatal hernia. THYROID: Unremarkable. No thyroid lesions. BONES/JOINTS: Unremarkable. No suspicious lytic or blastic abnormality. VASCULATURE: Unremarkable. Thoracic aorta is non-dilated. LYMPH NODES: Unremarkable. No enlarged lymph nodes. CT/Low Dose CT Lung Screening IMPRESSION: Slightly spiculated nodule in the right upper lobe which was not present on the previous exam. Lung-RADS score: 4B - Very Suspicious. Recommend chest CT with or without contrast, PET/CT and/or tissue sampling depending on the probability of malignancy and comorbidities. PET/CT may be used when there is a >=8 mm solid component. For new large nodules that develop on an annual repeat screening CT, a 1 month LDCT may be recommended to address potentially infectious or inflammatory conditions. Electronically Signed: Glenn Young MD at 0:08 EDT ,
== END | disposition home or self-care (01) ==
PROVIDERS: PCP Nurse Practitioner Primary Care; Visit Provider Internal Medicine Pulmonary Disease
DX: Z87.891 Personal history of nicotine dependence (principal)
CPT/HCPCS: 71271

== ENCOUNTER → 2024-01-09 | Outpatient (CLI) | payer MEDICARE, SELFPAY ==
--- NOTE | 2024-01-09 07:30 | PET_ITS ---
EXAMINATION: FDG PET-CT INDICATIONS: A 68-year-old male with a history of pulmonary nodularity. COMPARISON EXAMINATION: CT of the chest report dated 12/19/23. INDEX LESION SIZE SUV INTERPRETATION Right upper lung field, right upper lobe 9.4 mm 6.7 Fulfills quantitative criteria for viable neoplasm. TECHNIQUE: Following the intravenous administration of 13.69 mCi of F-18 deoxyglucose via the right hand, multiplanar image acquisitions of the head, neck, chest, abdomen and pelvis to level of mid-thigh, lower extremities obtained at one hour post radiopharmaceutical administration contemporaneously interpreted with the current CT of the head, neck, chest, abdomen and pelvis to level of mid-thigh, lower extremities dated 01/09/[address] of the chest report dated 12/19/23 reveal: SERUM GLUCOSE LEVEL: 99 mg/dl. HEIGHT: 62 inches. WEIGHT: 141 lbs. FINDINGS: Head/Neck: There is no evidence of abnormal increased glucose metabolism in the pharyngeal mucosal space, parapharyngeal space, bilateral-lateral and anterior neck, hypopharynx and distribution of the laryngeal structures. The visualized portion of the cerebral cortical-subcortical structures demonstrate symmetric and preserved glucose metabolism. CHEST: Facilitated FDG concentration is defined in the right upper lung field, right upper lobe generating a calculated standard maximum uptake value of 6.7. The maximum axial diameter of the metabolic, morphologic abnormality is 9.[address] findings are as follows. Meticulous attention paid to the remaining bilateral hemithorax pulmonary parenchyma demonstrates no evidence of quantitative significant increased FDG uptake. There is atherosclerotic calcification defined in the thoracic aorta without evidence of dilatation-aneurysm formation. Coronary arterial calcification is observed. Bilateral axillary soft tissue demonstrates no evidence of increased radiopharmaceutical concentration. Abdomen/Pelvis: Normal physiologic distribution of the radiopharmaceutical is apparent in the hepatic (3.2) and splenic parenchyma, both renal units, bladder and visualized intestinal tract. Diffuse radiopharmaceutical concentration is noted in all four quadrants of the abdomen and pelvis. The abdomen and pelvis CT findings are as follows. There is atherosclerotic calcification defined in the abdominal aorta without evidence of dilatation-aneurysm formation. Abdominal-pelvic arterial calcification is defined. Right and left inguinal soft tissue densities are non-tracer avid. Skeletal: Degenerative changes are noted in the cervical, thoracic and lumbar spine. PET/PET/CT Tumor Base -Thigh Init IMPRESSION: 1. ABNORMAL EXAMINATION INDICATIVE OF MALIGNANT-VIABLE NEOPLASM. 2. Enhanced tracer uptake noted in the right upper lung field, right upper lobe fulfills quantitative criteria for viable neoplasia. Histopathologic analysis is recommended. 3. No other scintigraphic abnormalities are noted. Electronic Signature Kevin Bourne D.O. Accurate Quantification of SUVs for this report are calculated using the exclusive Payment plugin Technology, ([place] Patent No. [phone] [id number] [phone] [phone] [place] patent [phone] ). Standardization and correction of the FDG SUV metric exclusively available with Payment plugin intellectual property, allow for vendor non-specific objective quantitative sequential FDG PET-CT comparison and otherwise unobtainable optimization of the sensitivity and specificity of the examination. [email or web address] Electronically Signed: Kevin Bourne DO at 21:59 EDT ,
== END | disposition home or self-care (01) ==
PROVIDERS: PCP Nurse Practitioner Primary Care; Referring Provider Family Medicine Geriatric Medicine; Visit Provider Family Medicine Geriatric Medicine
DX: R91.1 Solitary pulmonary nodule (principal)
CPT/HCPCS: 78815; A9552

== ENCOUNTER 2024-03-18 15:30 | Outpatient (RCR) | payer MEDICARE, SELFPAY ==
--- NOTE | 2024-02-14 15:01 | HP.PTEVAL_ITS ---
Patient's Visit Information Visit Information Visit Information: LIDIA CAPELLAN is a 68 year old M referred to Physical Therapy by Dr. Faraz Carter MD with a diagnosis of OTHER DISTURBANCES OF SKIN SENSATION. Date of Evaluation: 02/14/24 Physical Therapist: Kg Harper, PT, Cert MDT, OCS Visit Plan Frequency: 2x /Week Duration: 4 Weeks Plan: PT INTERVENTIONS DLS ,POSTURAL EX'S LAVON FLEXABILITY ,POSTURE EDUCATION ,ACTIVITY MODIFICATION AND FOR PAIN Subjective Subjective: This 68 y/o male presents to physical therapy with lumbar radiculopathy.Pain worse right > left. Patient has had back pain many years with 2 surgery's . Patient has had lumbar surgery 2008 lumbar discectomy ,and [address] Carter recommended PT and had x-rays DDD/osteophytes and pain management .Patient was referred by family DR . Medication prednisone in past. Patient pain symmetrical and lateral hips. Aggravating factors bending and walking ,occasional standing and lifting. Alleviating factors sitting.Patient condition with pain is worse after work and housework tasks. Coughing/sneezing-. Bowel/bladder-. Patient sleeping good. Patient has no trauma except surgery. Patient will try conservative's treatment before surgery. Patient goals to decrease pain. VOCATION: [employer] SOCIAL: Pain Bilateral Back: Pain Intensity (Out of 10): 4 Pain Intensity Range: 10 Objective Objective: POSTURE: mild forward posture NEURO: denies paresthesia/tingling ,reflexes L3-4,L4-5,L5-S1 2/3 PALATION: unremarkable SYMMETRIES :align FLEXABILITY: hamstrings mod tight MMT: quads/hams 4/5 ,hip flexion 4-/5 ,hip abd 4-/5 ,ankle 4/5 LUMBAR ROM: flexion mod loss pain right side ,extension min /mod right side ,side glides mod/severe loss pain right Special Tests L/S Slump test left side: Negative L/S Slump test right side: Negative L/S Left Straight Leg Raise: Negative L/S Right Straight Leg Raise: Negative Lumbar Standing: Flexion - Mechanical Response: No effect Lumbar Standing: Flexion - Symptoms During Testing: Increases Lumbar Standing: Flexion - Symptoms After Testing: Worse Lumbar Standing: Extension - Mechanical Response: No effect Lumbar Standing: Extension - Symptoms During Testing: Increases Lumbar Standing: Extension - Symptoms After Testing: Worse Lumbar Standing: Right Side Glides - Mechanical Response: No effect Lumbar Standing: Right Side [place] - Symptoms During Testing: Increases Lumbar Standing: Right Side [place] - Symptoms After Testing: Worse Lumbar Standing: Left Side [place] - Mechanical Response: No effect Lumbar Standing: Left Side [place] - Symptoms During Testing: No effect Lumbar Standing: Left Side [place] - Symptoms After Testing: No effect Lumbar Lying: Flexion - Mechanical Response: No effect Lumbar Lying: Flexion - Symptoms During Testing: Increases Lumbar Lying: Flexion - Symptoms After Testing: Worse Lumbar Lying: Extension - Mechanical Response: No effect Lumbar Lying: Extension - Symptoms During Testing: Increases Lumbar Lying: Extension - Symptoms After Testing: Worse Balance/Special Test Scores Oswestry Low Back Score: 25 Goals Goal 1:: Patient to be I with HEP for lumbar Goal Time Frame: 4-6 Weeks Goal 2:: Patient to improve lumbar ROM for function of recovery for ADLS and job demands . Goal Time Frame: 4-6 Weeks Goal 3:: Patient to improve back oswestry score by 5 points or > to improve QOL and function. Goal Time Frame: 4-6 Weeks Goal 4:: Patient to improve posture/body mechanics for job demands Goal Time Frame: 4-6 Weeks Goal 5:: Patient to improve back oswestry score by 5 points to improve QOL and function Goal Time Frame: 4-6 Weeks Rehabilitation Potential Physical Therapy Diagnosis: This patient has h/o 2 lumbar surgery discectomy and laminectomy 2008 and 2011 with pain worse with standing and bending increases with motion testing and positioning thus benefit from skilled PT Rehabilitation Potential: Good Anticipated Interventions Patient/Client Instruction: Educate patient on: Condition and Plan of Care For the Purpose of:: To decrease pain, To increase ROM, To improve muscle performance and motor function, To improve ability to perform ADL's, To increase tolerance to activity/condition/position, To improve ability of physical actions for home/community/work/leisure, To improve gait and locomotor functions, To improve health of tissue, To decrease soft tissue restriction, To increase flexibility/ROM, To reduce risk of recurrence and To improve tolerance to ADL's Therapeutic Exercise to Include: Strength training, Postural training, Flexibilty training and Dynamic Lumbar Stabilization For the Purpose of:: To decrease pain, To increase ROM, To improve muscle performance and motor function, To increase tolerance to activit y/condition/position, To improve performance and independence with ADL's, To improve ability of physical actions for home/community/work/leisure, To improve health of tissue, To decrease soft tissue restriction, To increase flexibility/ROM and To reduce risk of recurrence TENS: Yes IF ES: Yes Cryotherapy (ice pack, ice massage): Yes Thermo therapy (hot pack): Yes Ultrasound (thermal/non thermal): Yes For the Purpose of:: To decrease pain, To increase ROM, To improve nutrient delivery to tissue, To increase oxygenation perfusion, To improve health of tissue and To decrease soft tissue restriction Text: Thank you for the opportunity to evaluate your patient. For Medicare and Medicare HMO plans, please review the plan of care and approve it. It will need to be FAXED BACK to us at [phone] for Medicare purposes. For Medicare only, by signing this I certify the plan of care. Please let me know if there are questions or concerns regarding this plan of care. Physician Signat ure: Date:
--- NOTE | 2024-03-18 15:52 | HP.PTDCSUM ---
Discharge Summary D/C summary: It has been my pleasure to treat LIDIA CAPELLAN referred by Dr. Faraz Carter MD, with the diagnosis of OTHER DISTURBANCES OF SKIN SENSATION for a total of 8 visit(s). Discharge Date: Please see the following information for a summary of their discharge status. Subjective Subjective: Patient doing much better overall. Therapy is really helping ,patient is able to walk further bend for ADL Pain Bilateral Back: Pain Intensity (Out of 10): 0 Overall Improvement % Improvement: 100 Objective Objective/Function: POSTURE: mild forward posture NEURO: denies paresthesia/tingling ,reflexes L3-4,L4-5,L5-S1 2/3 PALATION: unremarkable SYMMETRIES :align FLEXABILITY: hamstrings mod tight MMT: quads/hams 4/5 ,hip flexion 4-/5 ,hip abd 4-/5 ,ankle 4/5 LUMBAR ROM: flexion min loos ,extension min right side ,side glides MIN loss no pain Goals Goal 1:: Patient to be I with HEP for lumbar Goal Progress: Goal Met Goal 2:: Patient to improve lumbar ROM for function of recovery for ADLS and job demands . Goal Progress: Goal Met Goal 3:: Patient to improve back oswestry score by 5 points or > to improve QOL and function. Goal Progress: Goal Met Goal 4:: Patient to improve posture/body mechanics for job demands Goal Progress: Goal Met Goal 5:: Patient to improve back oswestry score by 5 points to improve QOL and function Goal Progress: Goal Met Plan Plan: D/C D/C Information d/c sentence: If there are questions or concerns regarding this patient's physical therapy, please feel free to call me at [phone]. Thank you for the referral of this patient. Sincerely, Kg Harper, PT, Cert MDT, OCS Balance/Gait/Functional tests Balance/Special Test Scores Oswestry Low Back Score: 0 Improvement % Improvement: 100
== END 2024-03-18 19:00 | disposition home or self-care (01) ==
LOC: PT 15:30
PROVIDERS: PCP Nurse Practitioner Primary Care; Referring Provider Orthopaedic Surgery Orthopaedic Surgery of the Spine; Visit Provider Orthopaedic Surgery Orthopaedic Surgery of the Spine
DX: R20.8 Other disturbances of skin sensation (principal)
CPT/HCPCS: 97110; 97162; 97530

== ENCOUNTER 2024-09-26 09:10 | Emergency (ER) | payer MEDICARE, SELFPAY ==
[2024-09-26 09:11] VITALS: BP 142/59; PULSE 57; RESP 16; TEMP 36.6; O2SAT 98; BMI 25.9
--- NOTE | 2024-09-26 09:36 | EX.ED.DYSGE1 ---
HPI History of Present Illness Chief Complaint: Nosebleed Informant: patient and spouse/S.O. Narrative Narrative: 69-year-old male presenting to the emergency room with nosebleed of 1 hour duration. Patient states he was at work with nosebleed to stop. He states he was spitting up blood and seem to be coming out of both nares right greater than left. He states that before 2009 he had had a nosebleed that required packing. He takes a daily aspirin but no other blood thinners. Over the past couple weeks he has been using a sinusex nose spray. Currently however he states that he is not having any bleeding. 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 Arthritis Tobacco user Degeneration of lumbar intervertebral disc Chronic pain of right upper extremity Diverticulitis Degenerative joint disease of hand Benign essential hypertension Home Medications ?Medication ?Instructions ?Recorded ?Last Taken ?Type aspirin 81 mg chewable tablet 81 mg PO QHS heart health 03/19/13 08/05/20 History atorvastatin 40 mg tablet 40 mg PO QHS 04/12/20 08/05/20 History latanoprost 0.005 % eye drops 1 drp EACH EYE QHS 04/12/20 08/04/20 History losartan 25 mg tablet 25 mg PO DAILY BP 08/05/20 08/05/20 History acetaminophen 500 mg tablet 500 mg PO Q6H PRN 10/12/22 Unknown History (Tylenol Extra Strength) nitroglycerin 0.4 mg sublingual 0.4 mg sublingual ONCE 10/12/22 Unknown History tablet vitamin B complex (B 1 tab PO DAILY 10/12/22 Unknown History Complex-Vitamin B12 tablet) omeprazole 40 mg capsule,delayed 40 mg PO BID 10/20/22 Unknown History release fluticasone fur. 100 mcg-umeclid 1 ea inhalation QDAY 02/02/24 Unknown History 62.5 mcg-vilant 25 mcg inhalat.powder (Trelegy Ellipta) vitamin B comp and C no.3 15 mg-10 1 cap PO DAILY 02/02/24 Unknown History mg-50 mg-5 mg-300 mg capsule (B Complex Plus Vitamin C) Allergy/AdvReac Type Severity Reaction Status Date / Time pregabalin (From Lyrica) Allergy NEEDS Verified 09/26/24 09:11 FOLLOW-UP Family History Mother Cancer Father Cancer Diabetes Sister Heart disease Myocardial infarction Brother Heart disease Myocardial infarction Cancer Surgical History Hx of laminectomy Hx of tonsillectomy Social History (Updated 09/26/24 @ 09:46 by Josefa Mcconnell) household members: family housing: house Smoking Status: Former smoker quit date: 02/17/23 ROS ROS ED Constitutional Constitutional ED: Denies chills, fever(s) or weight loss Eyes Eyes: Denies change in vision or diplopia ENT ENT ED: Reports other Details: Nasal congestion epistaxis see HPI ; Denies ear pain, rhinorrhea or sore throat Cardiovascular Cardiovascular: Denies chest pain, orthopnea, palpitations or racing heartbeat Respiratory/Chest Respiratory/Chest: Denies cough, dyspnea or orthopnea Gastrointestinal Gastrointestinal: Denies abdominal pain, diarrhea, nausea or vomiting Genitourinary Genitourinary ED: Denies dysuria, hematuria or urinary frequency Musculoskeletal Musculoskeletal: Denies arthralgias or myalgias Integumentary Denies abscess or rash Neurologic Neurologic: Denies headache(s) or weakness Psychiatric Psychiatric: Denies anxiety, depression, suicidal ideation or suicidal thoughts Endocrine Endocrinology: Denies polydipsia, polyphagia or polyuria Allergic/Immunologic Allergic/Immunologic ED: Denies mouth swelling, tongue swelling or urticaria EXAM Physical Exam Const Vital Signs: 09/26/24 09:11 09/26/24 10:16 Temperature 97.9 F 97.9 F Temperature Source Temporal Pulse Rate 57 L 60 Respiratory Rate 16 16 Blood Pressure 142/59 H 142/59 H Blood Pressure Mean 86 86 Pulse Ox 98 98 Oxygen Delivery Method Room Air Positive well nourished and well developed General Appearance ED: well developed HEENT Reports normocephalic, head/scalp atraumatic and moist mucous membranes HEENT Narrative: Large clot was expressed from the right nare with patient blowing. I do not see any active bleeding. Dried blood at the entrance to the nose bilaterally. I do not see any anterior excoriations or vessels on exam bleeding. Eyes PERRL and EOMs intact bilaterally Neck no lymphadenopathy, supple and no JVD Resp normal respiratory effort and clear to auscultation bilaterally Cardio regular rate, regular rhythm and no murmurs GI normal to inspection, nondistended, normoactive bowel sounds and non-tender Palpation: soft Back/Spine no CVA tenderness and normal ROM Extremity normal to inspection General Extremety ED: Negative for edema General Extremity: Negative for edema Neuro oriented x3 and CN's II-XII intact bilaterally Sensorium / Orientation: alert Motor Exam: strength 5/5 throughout Psych mental status grossly normal Mood & Affect: Negative for depressed or tearful Skin no rashes or lesions noted and no wounds MDM MDM MDM Narrative Medical decision making narrative: Differential diagnosis includes anterior and posterior epistaxis polyps coagulopathy anemia sinusitis AVM Patient was observed here in the department. There is been no further bleeding. Patient was comfortable being discharged home stopping the nasal spray. He understands he may return if it starts to bleed again and may require packing. Have asked that he follow-up with ENT. History & Record Review Discussion w/independent historian: Patient Discharge Plan Triage Chief Complaint: Nosebleed ED Provider: Andre Ferrari Dx/Rx/DC Orders Clinical Impression: Acute posterior epistaxis Instructions: ED Epistaxis (Adult) Prescriptions: No Action acetaminophen [Tylenol Extra Strength] 500 mg tablet 500 mg PO Q6H PRN nitroglycerin 0.4 mg tablet, sublingual 0.4 mg sublingual ONCE Rx Instructions: as a single dose; administer 5-10 minutes before situation known to precipitate angina attack vitamin B complex [B Complex-Vitamin B12] Tablet 1 tab PO DAILY omeprazole 40 mg Capsule,Delayed Release(Dr/Ec) 40 mg PO BID Trelegy Ellipta 100-62.5-25 mcg blister with device 1 ea inhalation QDAY B Complex Plus Vitamin C 15-49-73-5-300 mg capsule 1 cap PO DAILY Rx Instructions: give with food (meal/snack) aspirin 81 MG tablet,chewable 81 mg PO QHS Patient Comments: HEART HEALTH atorvastatin 40 MG tablet 40 mg PO QHS latanoprost 1 DROP bottle 1 drp EACH EYE QHS losartan 25 MG tablet 25 mg PO DAILY Primary Care Provider: Myles Cooper MECHANICAL PRESS OPERATOR Referrals: Sravan Barry MD [Med Staff - Active Staff] - 3-5 Days Myles Cooper NP, MECHANICAL PRESS OPERATOR-C [Primary Care Provider] - Activity Restrictions/Additional Instructions: At this point I would recommend discontinuing the nasal spray in case that has potentially led to the nosebleed. As we discussed your nose may start bleeding again. If you are unable to get it stopped please return to the emergency room. Print Language: Sammarinese Disposition Disposition: Home, Self Care Discharge Date/Time: 09/26/24 10:17
[2024-09-26 10:16] VITALS: BP 142/59; PULSE 60; RESP 16; TEMP 36.6; O2SAT 98
== END 2024-09-26 10:17 | disposition home or self-care (01) ==
PROVIDERS: Emergency Provider Emergency Medicine; PCP Nurse Practitioner Primary Care; Visit Provider Emergency Medicine
DX: R04.0 Epistaxis (principal); I10 Essential (primary) hypertension; E78.00 Pure hypercholesterolemia, unspecified; Z79.82 Long term (current) use of aspirin; Z79.899 Other long term (current) drug therapy; Z87.891 Personal history of nicotine dependence
CPT/HCPCS: 99282

== ENCOUNTER → 2024-11-13 | Outpatient (CLI) | payer MEDICARE, SELFPAY | END | disposition home or self-care (01) | LOC: LABSPEC 16:00 | PROVIDERS: PCP Nurse Practitioner Primary Care; Referring Provider Internal Medicine Medical Oncology; Visit Provider Internal Medicine Medical Oncology | DX: D64.9 Anemia, unspecified (principal) | CPT/HCPCS: 82274 ==

== ENCOUNTER 2025-04-09 19:03 | Emergency (ER) | payer MEDICARE, SELFPAY ==
[2025-04-09 19:04] VITALS: BP 167/62; PULSE 57; RESP 16; TEMP 36.8; O2SAT 100; BMI 32.5
--- NOTE | 2025-04-09 20:43 | EDS_ITS ---
HPI History of Present Illness Chief Complaint: Other, Pain/Inj Informant: patient and spouse/S.O. Narrative Narrative: 69-year-old male presenting to the emergency room chief complaint of right side pain. Patient states that 3 days ago he began to have constant pain is worse with being upright and walking as well as movements. No reported fevers but he does note some chills. He states he has had prior cancer in the right lung. He notes no urinary frequency or dysuria. He notes chronic constipation. Denies any abdominal swelling. No change in eating. No rashes. Pain does not migrate/radiate. Prior to arrival he took 50 mg of Benadryl as well as t razodone which he takes every night before bed. He also took some Tylenol with ibuprofen. He notes he had prior diverticulitis with rectal colon resection. No history of kidney stones. He has not had an appendectomy or cholecystectomy. No known liver disease. 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 Arthritis Tobacco user Degeneration of lumbar intervertebral disc Chronic pain of right upper extremity Diverticulitis Degenerative joint disease of hand Benign essential hypertension Home Medications Medication Instructions Recorded Last Taken Type aspirin 81 mg chewable tablet 81 mg PO QHS heart healt h 03/19/13 08/05/20 History atorvastatin 40 mg tablet 40 mg PO QHS 04/12/20 History latanoprost 0.005 % eye drops 1 drp EACH EYE QHS 04/1208/04/20 History losartan 25 mg tablet 25 mg PO DAILY BP 08/05/20 0 08/05/20 History acetaminophen 500 mg tablet 500 mg PO Q6H PRN 10/12/22 Unknown History (Tylenol Extra Strength) nitroglycerin 0.4 mg sublingual 0.4 mg sublingual ONCE 10/12/22 Unknown History tablet vitamin B complex (B 1 tab PO DAILY 10/12/22 Unkn own History Complex-Vitamin B12 tablet) fluticasone fur. 100 mcg-umeclid 1 ea inhalation QDAY 02/02/24 Unknown History 62.5 mcg-vilant 25 mcg inhalat.powder (Trelegy Ellipta) ferrous sulfate 325 mg (65 mg 325 mg PO .mon,wed,fri 0 11/12/24 Unknown History iron) tablet fluticasone propionate 50 1 spray intranasal QAM 11/12 Unknown History mcg/actuation nasal spray,suspension omeprazole 40 mg capsule,delayed 20 mg PO BID 11/12/24 Unknown History release trazodone 50 mg tablet 50 mg PO QHS 11/12/24 Unknow n History vitamin B12 0.5 mg-folic acid 1 mg 1 tab PO QDAY 11/12 Unknown History tablet oxycodone-acetaminophen 5 mg-325 1 tab PO Q6H PRN pain 3 days #12 04/09/25 Unknown Rx mg tablet (Percocet) tabs Allergy/AdvReac Type Severity Reaction Status Date / Time pregabalin (From Lyrica) Allergy NEEDS Verified 04/09/25 19:06 FOLLOW-UP Family History Mother Cancer Father Cancer Diabetes Sister Heart disease Myocardial infarction Brother Heart disease Myocardial infarction Cancer Surgical History Hx of laminectomy Hx of tonsillectomy Social History household members: family housing: house Smoking Status: Former smoker quit date: 02/17/23 ROS ROS ED Constitutional Constitutional ED: Reports chills; Denies fever(s) or weight loss Eyes Eyes: Denies change in vision or diplopia ENT ENT ED: Denies ear pain, rhinorrhea or sore throat Cardiovascular Cardiovascular: Denies chest pain, orthopnea, palpitations or racing heartbeat Respiratory/Chest Respiratory/Chest: Denies cough, dyspnea or orthopnea Gastrointestinal Gastrointestinal: Reports abdominal pain and constipation; Denies diarrhea, nausea or vomiting Genitourinary Genitourinary ED: Denies dysuria, hematuria or urinary frequency Musculoskeletal Musculoskeletal: Denies arthralgias, back pain, myalgias or neck pain Integumentary Denies abscess or rash Neurologic Neurologic: Denies headache(s) or weakness Psychiatric Psychiatric: Denies anxiety, depression, suicidal ideation or suicidal thoughts Endocrine Endocrinology: Denies polydipsia, polyphagia or polyuria Allergic/Immunologic Allergic/Immunologic ED: Denies mouth swelling, tongue swelling or urticaria EXAM Physical Exam Const Vital Signs: 04/09/25 19:04 04/09/25 19:25 04/09/25 21:05 Temperature 98.3 F Temperature Source Oral Pulse Rate 57 L 70 Respiratory Rate 16 18 Respiratory Effort Normal Non-Labored Respiratory Pattern Normal Blood Pressure 167/62 H 138/78 H Blood Pressure Mean 97 98 Pulse Ox 100 98 Oxygen Delivery Method Room Air 04/09/25 22:37 Temperature 98.3 F Temperature Source Pulse Rate 70 Respiratory Rate 18 Respiratory Effort Respiratory Pattern Blood Pressure 138/78 H Blood Pressure Mean 98 Pulse Ox 98 Oxygen Delivery Method Positive well nourished and well developed General Appearance ED: well developed HEENT Reports normocephalic, head/scalp atraumatic and moist mucous membranes Eyes PERRL and EOMs intact bilaterally Neck no lymphadenopathy, supple and no JVD Resp normal respiratory effort and clear to auscultation bilaterally Cardio regular rate, regular rhythm and no murmurs GI non-distended GI Narrative: Tender to palpation right middle upper quadrant into the axillary line. I do not appreciate a rash. There is no CVA tenderness. No lumbar paraspinal tenderness. No rib tenderness. The abdomen is not distended. There is normal bowel sounds. Inspection: Negative for abdominal distention Auscultation: normoactive bowel sounds Palpation: soft, tender and guarding Back/Spine no CVA tenderness and normal ROM Extremity normal to inspection General Extremety ED: Negative for edema General Extremity: Negative for edema Neuro oriented x3 and CN's II-XII intact bilaterally Sensorium / Orientation: alert Motor Exam: strength 5/5 throughout Psych mental status grossly normal Mood & Affect: Negative for depressed or tearful Skin no rashes or lesions noted and no wounds MDM MDM MDM Narrative Medical decision making narrative: Differential diagnosis includes but not limited to UTI kidney stone appendicitis cholecystitis diverticulitis colitis muscular strain radiculopathy shingles Basic blood work was obtained shows a hemoglobin 11.5. Creatinine is 1.18 with a BUN of 30. Normal LFTs normal lipase. Urinalysis is normal. CT down pelvis with IV contrast was obtained not show any acute findings. Patient was treated with morphine. I spoke with him and his regarding the above findings. I will write for pain medication at home and we will continue to observe him. Should he worsen he needs to return to the emergency. Otherwise would recommend follow-up with primary care History & Record Review Discussion w/independent historian: Patient and Significant other Lab Data Attestation: I reviewed the patient's lab results. Labs: Laboratory Results - last 24 hr 04/09/25 04/09/25 21:00 21:39 WBC 8.9 RBC 3.69 L Hgb 11.5 L Hct 33.6 L MCV 91.1 MCH 31.2 MCHC 34.2 RDW Std Deviation 47.0 H RDW Coeff of Milli 13.8 Plt Count 224 MPV 11.1 Immature Gran % (Auto) 0.300 Neut % (Auto) 52.1 Lymph % (Auto) 30.8 [place] % (Auto) 7.8 Eos % (Auto) 8.3 H Baso % (Auto) 0.7 Absolute Neuts (auto) 4.6 Absolute Lymphs (auto) 2.73 Nucleated RBC % 0 Sodium 138 Potassium 4.2 Chloride 105 Carbon Dioxide 22.1 Anion Gap 11 BUN 30 H Creatinine 1.18 Estim Creat Clear Calc 53.60 Est GFR (MDRD) Non-Af 66 BUN/Creatinine Ratio 25.4 H Glucose 112 H Calcium 9.5 Total Bilirubin 0.21 Direct Bilirubin 0.12 AST 20 ALT 27 Alkaline Phosphatase 75 Total Protein 6.5 Albumin 4.2 Globulin 2.3 Lipase 62 Urine Color Yellow Urine Clarity Clear Urine pH 6.0 Ur Specific [place] 1.015 Urine Protein 15 H Urine Glucose (UA) Normal Urine Ketones Negative Urine Occult Blood Negative Urine Nitrite Negative Urine Bilirubin Negative Urine Urobilinogen Normal Ur Leukocyte Esterase Negative Urine RBC 0-5 SEEN Urine WBC 0-5 SEEN Ur Squamous Epith Cells 0-5 SEEN Urine Bacteria 0 SEEN Urine Mucus 0 SEEN Radiography Diagnostic Testing: Clinical Impression(s) from Imaging Studies Abdomen/Pelvis CT 04/09/25 21:15 IMPRESSION: Nonobstructing bilateral nephrolithiasis, as described above. Hepatomegaly. Large amount of stool throughout the colon. Extensive atherosclerosis. Moderate lumbar spondylosis. Reading Location: [facility] Discharge Plan Triage Chief Complaint: Other, Pain/Inj ED Provider: Andre Ferrari Dx/Rx/DC Orders Clinical Impression: Abdominal pain Instructions: Abdominal Pain Prescriptions: New oxycodone-acetaminophen [Percocet] 5-325 mg tablet 1 tab PO Q6H PRN (Reason: pain) 3 Days Qty: 12 0RF No Action acetaminophen [Tylenol Extra Strength] 500 mg tablet 500 mg PO Q6H PRN nitroglycerin 0.4 mg tablet, sublingual 0.4 mg sublingual ONCE Rx Instructions: as a single dose; administer 5-10 minutes before situation known to precipitate angina attack vitamin B complex [B Complex-Vitamin B12] Tablet 1 tab PO DAILY omeprazole 40 mg capsule,delayed release(DR/EC) 20 mg PO BID Trelegy Ellipta 100-62.5-25 mcg blister with device 1 ea inhalation QDAY trazodone 50 mg tablet 50 mg PO QHS ferrous sulfate 325 mg (65 mg iron) tablet 325 mg PO .mon,wed,fri fluticasone propionate 50 mcg/actuation spray,suspension 1 spray intranasal QAM vitamin [id number] 0.5-1 mg tablet 1 tab PO QDAY aspirin 81 MG tablet,chewable 81 mg PO QHS Patient Comments: [facility] atorvastatin 40 MG tablet 40 mg PO QHS latanoprost 1 DROP bottle 1 drp EACH EYE QHS losartan 25 MG tablet 25 mg PO DAILY Primary Care Provider: Myles Cooper NP Referrals: Myles Cooper NP, [employer] [Primary Care Provider, Medical] - 3-5 Days Print Language: Kiswahili Disposition Disposition: Home, Self Care Discharge Date/Time: 04/09/25 22:41
--- OUTSIDE RECORDS SUMMARY | 2025-04-09 20:46 | XMS RPT_ITS | CCD ---
Author Organization [facility]ly [facility] Care Team Providers Care Public Health Registrar Name Role Phone Julissa García Primary Care Provider [phone] JESSICA MZEA Primary Care Physician ([phone] Sheri Chaparro Unavailable Unavailable Julissa García CNP Primary Care Provider Julissa Garcia APRN, NP Primary Care Provider Julissa Garcia APRN, NP Primary Care Provider JESSICA MEZA Primary Care Physician ([phone]) Julissa García CNP Primary Care Provider Julissa García CNP Primary Care Provider JESSICA MEZA Primary Care Physician ([phone]) Jessica Stanford Primary Care Provider [phone] Jessica Stanford Primary Care Provider [phone] Ross BRYAN, Ta Unavailable Rubina VOICE INSTRUCTOR - LIGHT BULB ASSEMBLER, Jana Unavailable Julissa García CNP Primary Care Provider KYLEE GABRIEL DO Attending Unavailable BALTES VOICE INSTRUCTOR-LIGHT BULB ASSEMBLER, JESSICA Primary Care Unavailabl e BALTES VOICE INSTRUCTOR-LIGHT BULB ASSEMBLER, JESSICA Primary Care Unavailabl e BALTES VOICE INSTRUCTOR-LIGHT BULB ASSEMBLER, JESSICA Attending Unavailabl e BALTES VOICE INSTRUCTOR-LIGHT BULB ASSEMBLER, JESSICA Primary Care Unavailabl e BALTES VOICE INSTRUCTOR-LIGHT BULB ASSEMBLER, JESSICA Attending Unavailabl e BALTES VOICE INSTRUCTOR-LIGHT BULB ASSEMBLER, JESSICA Primary Care Unavailabl e BALTES VOICE INSTRUCTOR-LIGHT BULB ASSEMBLER, JESSICA Attending Unavailabl e BALTES VOICE INSTRUCTOR-LIGHT BULB ASSEMBLER, JESSICA Attending Unavailabl e BALTES VOICE INSTRUCTOR-LIGHT BULB ASSEMBLER, JESSICA Primary Care Unavailabl e BALTES VOICE INSTRUCTOR-LIGHT BULB ASSEMBLER, JESSICA Primary Care Unavailabl e BALTES VOICE INSTRUCTOR-LIGHT BULB ASSEMBLER, JESSICA Attending Unavailabl e Baltes RACK WASHER-C, Jessica Primary Care Provider [phone] Dr. Andre Ferrari DO Emergency Provider Dr. Andre Ferrari DO Attending Provider Baltes RACK WASHER-C, Jessica Referring Provider [phone] Esperanza BRYAN, Dr. Becker Attending Provider Esperanza BRYAN, Dr. Becker Referring Provider Eugenio Mata Attending Unavailable Baltes RACK WASHER, Jessica Referring Unavailable Baltes RACK WASHER, Jessica Primary Care Unavailable Baltes RACK WASHER, Jessica Primary Care Unavailable Baltes RACK WASHER, Jessica Referring Unavailable Carter, Faraz Attending Unavailable Eddie, Harmeet Attending Unavailable Baltes RACK WASHER, Jessica Primary Care Unavailable Baltes RACK WASHER, Jessica Primary Care Unavailable Carter, Faraz Attending Unavailable Carter, Faraz Referring Unavailable Baltes RACK WASHER, Jessica Primary Care Unavailable Andre Ferrari Attending Unavailable PrahEugenio Attending Unavailable PrahEugenio Referring Unavailable Baltes RACK WASHER, Jessica Primary Care Unavailable PrahEugenio Attending Unavailable Prah Eugenio Referring Unavailable Baltes RACK WASHER, Jessica Primary Care Unavailable Sibilia, Isaias V Attending Unavailable Sibilia, Isaias V Referring Unavailable Baltes RACK WASHER, Jessica Primary Care Unavailable Eliud, Estiven Chi Attending Unavailable Eliud, Estiven Chi Referring Unavailable Sibilia, Isaias V Consulting Unavailable Baltes RACK WASHER, Jessica Primary Care Unavailable Lorson VOICE INSTRUCTOR.LIGHT BULB ASSEMBLER, Julissa Primary Care Provider Baltes, Jessica Primary Care Provider [phone] Rubina VOICE INSTRUCTOR - LIGHT BULB ASSEMBLER, Jana Unavailable [phone] BALTES, JESSICA Primary Care Unavailable JANA NEGRETE Attending Unavailable QUE, KRYSTIN Referring Unavailable QUE, KRYSTIN Attending Unavailable BALTES, JESSICA Primary Care Unavailable TA DOVER Referring Unavailable TA DOVER Attending Unavailable BALTES, JESSICA Primary Care Unavailable Low, Dr. Bill Referring Unavailable LORSON, JULISSA Primary Care Unavailable LORSON, JULISSA Primary Care Unavailable Low, Dr. Bill Attending Unavailable Low, Dr. Bill Referring Unavailable LORSON, JULISSA Primary Care Unavailable LORSON, JULISSA Primary Care Unavailable Low, Dr. Bill Attending Unavailable LORSON, JULISSA Primary Care Unavailable Low, Dr. Escobar-Sam Referring Unavailable JULISSA GARCÍA Primary Care Unavailable Dr. Gilbert Rhodes Attending Unavailable Allergies Allergy Classification Reported Allergen(s) Allergy Type Date of Onset Reaction(s) Facility pregabalin (1 source) pregabalin; Translations: [pregabalin] Drug Allergy Unsteady when standing (finding) [facility] Comment on above: "made me feel intoxi cated" (20 sources) pregabalin; Translations: [pregabalin] Drug Allergy 3 Unsteady when standing (finding) [facility] Comment on above: "made me feel intoxi cated" (20 sources) nabumetone; Translations: [NABUMETONE] Drug Allergy 5 GI Upset [facility] Work Phone: (1 source) pregabalin Drug Allergy 5 [facility] Medications Current Medications Medication Drug Class(es) Dates Sig (Normalized) Sig (Original) acetaminophen 500 mg oral tablet (20 sources) Start: 12-22-2020 take 1 tablet by mouth every six hours as needed Acetaminophen (Tylenol Extra Strength) 500 mg tablet Active 500 mg PO EVERY 6 HOURS as needed October 12, 2022 12:00am [id number] 200 actuat albuterol 0.09 mg/actuat metered dose inhaler (12 sources) beta2-Adrenergic Agonist Start: 10-24-2023 albuterol 108 (90 Base) MCG/ACT inhaler INHALE 2 (TWO) puffs BY MOUTH up to FOUR times for SHORTNESS OF BREATH and cough 10/24/2023 Active amLODIPine 5 mg oral tablet (1 source) Dihydropyridine Calcium Channel Marni Start: 12-02-2015 amLODIPine (NORVASC) 5 MG tablet Take 5 mg by mouth 0 12/02/2015 Active amoxicillin 875 mg oral tablet (2 sources) Penicillin-class Antibacterial Start: 06-25-2022 End: 07-02-2022 take 1 tablet by mouth twice daily amoxicillin (AMOXIL) 875 mg tablet Take 1 tablet by mouth twice daily for 7 days. 14 tablet 0 06/25/2022 07/02/2022 Active Start: 10-23-2021 End: 10-30-2021 take 1 tablet by mouth twice daily amoxicillin (AMOXIL) 875 mg tablet Take 1 tablet by mouth twice daily for 7 days. 14 tablet 0 10/23/2021 10/30/2021 Active Comment on above: Take 1 tablet by key th twice daily for 7 days. aspirin 81 mg delayed release oral tablet (20 sources) Platelet Aggregation Inhibitor, Nonsteroidal Anti-inflammatory Drug Start: 12-29-2020 aspirin 81 mg oral delayed release tablet Dose : 81 mg = 1 tab(s), Oral, qDay, # 90 tab(s), 0 Refill(s) Start Date: 12/29/20 Status: Ordered Start: 11-25-2015 take 1 tablet by key th once daily aspirin, enteric coated (ECOTRIN LOW STRENGTH) 81 mg EC tablet Take 1 tablet by mouth once daily. 0 11/25/2015 Active Start: 03-19-2013 take 1 tablet by key th at bedtime Aspirin 81 MG tablet,chewable Active 81 mg PO AT BEDTIME March 19, 2013 12:00am Comment on above: Take 1 tablet by key th once daily. atorvastatin 80 mg oral tablet (20 sources) HMG-CoA Reductase Inhibitor Start: take 1 tablet by mouth once daily atorvastatin (Lipitor) 80 MG tablet Take 80 mg by mouth daily. 12/11/2022 Active Start: 11-09-2021 atorvastatin 8 0 mg oral tablet Dose : 80 mg = 1 tab(s), Oral, Daily, # 90 tab(s), 3 Refill(s), Pharmacy: [facility], 157.5, cm, 09/29/21 16:22:00 EDT, Height, kg, 09/29/21 16:22:00 EDT, Dosing Weight Start Date: 11/09/21 Status: Ordered Start: 06-16-2021 atorvastatin 8 0 mg oral tablet Dose : 80 mg = 1 tab(s), Oral, Daily, # 90 tab(s), 1 Refill(s), Pharmacy: [facility], 160, cm, 05/19/21 14:17:00 EST, Height, kg, 05/19/21 14:17:00 EST, Dosing Weight Start Date: 06/16/21 Status: Ordered Start: 12-23-2019 take 1 tablet by key th at bedtime Atorvastatin 40 MG tablet Active 40 mg PO AT BEDTIME April 12, 2020 12:00am Start: 02-06-2015 End: 04-09-2016 take 1 tablet by mouth at bedtime Atorvastatin 20 MG tablet Discontinued 20 mg PO AT BEDTIME February 06, 2015 12:00am April 09, 2016 12:35pm Comment on above: Take 40 mg by mouth once daily. b complex vitamins capsule (12 sources) take 1 capsule by mouth once daily b complex vitamins capsule Take 1 capsule by mouth daily. Active bisacodyl 5 mg delayed release oral tablet (2 sources) Stimulant Laxative Start: 3 End: 3 bisacodyl 5 mg oral delayed release tablet Dose : 10 mg = 2 tab(s), Oral, Daily, PRN for constipation, X 90 day(s), # 20 tab(s), 0 Refill(s), 11/24/22 15:24:00 EDT, Pharmacy: [id number], 157.5, cm, 08/26/22 14:53:00 EST, Height Start Date: 08/26/22 Stop Date: 11/24/22 Status: Ordered clopidogrel 75 mg oral tablet (12 sources) [id number] Platelet Inhibitor Start: 4 End: 4 take 1 tablet by mouth once daily clopidogrel (Plavix) 75 MG tablet Take 1 tablet (75 mg) by mouth daily. 30 tablet 01/02/2024 02/01/2024 Active Start: 01-02-2024 End: 01-02-2024 take 1 tablet by mouth once clopidogrel (Plavix) 300 M G tablet Take 1 tablet (300 mg) by mouth Once for 1 dose. 1 tablet 01/02/2024 01/02/2024 Discontinued (Stop taking at discharge) cyclobenzaprine hydrochloride 10 mg oral tablet (2 sources) Muscle Relaxant Start: 02-12-2023 End: 02-17-2023 cyclobenzaprine 10 mg oral tablet Dose : 10 mg = 1 tab(s), Oral, TID, prn back spasm/pain, # 15 tab(s), 0 Refill(s), 02/17/23 1:43:00 PM EDT Start Date: 02/12/23 Stop Date: 02/17/23 Status: Ordered Start: 08-14-2022 End: 08-21-2022 cyclobenzaprine 10 mg oral t ablet Dose : 10 mg = 1 tab(s), Oral, TID, PRN for muscle spasm, X 7 day(s), # 21 tab(s), 0 Refill(s), 08/21/22 21:18:00 EST, Musculoskeletal pain Shoulder pain Start Date: 08/14/22 Stop Date: 08/21/22 Status: Ordered doxylamine succinate 25 mg oral tablet (12 sources) take 1 tablet by mouth once daily as needed for sleep doxylamine (Sleep Aid) 25 MG tablet Take 25 mg by mouth Nightly as needed for sleep. Active ferrous sulfate 325 mg oral tablet (10 sources) Start: 11-12-2024 Ferrous Sulfate 325 mg (65 mg iron) tablet Active 325 mg PO .mon,mon,monNovember 12, 2024 12:00am Start: 02-21-2024 End: 08-19-2024 ferrous sulfate 325 mg (65 m g elemental iron) oral delayed release tablet Dose : 325 mg = 1 tab(s), Oral, Mon/Mon/Mon, # 39 tab(s), 1 Refill(s), Pharmacy: [facility], Iron deficiency anemia, 157.5, cm, 02/09/24 15:26:00 EDT, Height, kg, 02/09/24 15:26:00 EDT, Dosing Weight Start Date: 02/21/24 Stop Date: 08/19/24 Status: Ordered Quantity: 39.0 Unit: tab(s) Repeat number: 2 Indication: Iron deficiency anemia, unspecified Start: 02-21-2024 take 1 tablet by mouth once fe rrous sulfate 325 mg (65 mg iron) EC tablet TAKE 1 TABLET BY MOUTH EVERY MONDAY, MONDAY AND Monday02/21/2024 Active fluticasone propionate 0.05 mg/actuat metered dose nasal spray (20 sources) Corticosteroid Start: 11-12-2024 Fluticasone Pr opionate 50 mcg/actuation spray,suspension Active 1 NMA INTRANASAL EVERY MORNING November 12, 2024 12:00am Start: 08-11-2023 End: 10-10-2023 take 50 ug nasal route once daily in the morning Flonase 50 mcg/inh nasal spray 50 mcg Dose = 1 spray(s), Nostril, each, qAM, # 16 gram(s), 1 Refill(s), Pharmacy: [id number], Nasal polyp, 157.5, cm, 08/11/23 15:07:00 EST, Height, kg, 08/11/23 15:07:00 EST, Dosing Weight Start Date: 08/11/23 Stop Date: 10/10/23 Status: Ordered Quantity: 16.0 Unit: g Repeat number: 2 Indication: Nasal polyp, unspecified Start: 08-11-2023 take 1 spray(s) nasa l route once daily in the morning fluticasone (Flonase) 50 MCG/ACT nasal spray INSTILL 1 SPRAY INTO NOSTRIL EVERY MORNING 08/11/2023 Active End: 01-08-2025 take 1 spray(s) nasal route once daily in the morning fluticasone (FLONASE) 50 mcg/actuation nasal spray INSTILL 1 SPRAY INTO NOSTRIL EVERY MORNING 01/08/2025 Discontinued Wtscedxilad-Crryquicc-Mgxzln er (20 sources) Anticholinergic, Corticosteroid, beta2-Adrenergic Agonist Start: 02-02-2024 Tokftluqoga-Euctszgih-Igqyfg er (Trelegy Ellipta) 100-62.5-25 mcg blister with device Active 1 NMA INHALATION daily February 02, 2024 12:00am take 1 puff(s) by in halation once daily Vyfznygclmm-Ewhtzkgej-Kwvqcp (Trelegy El lipta) 100-62.5-25 MCG/ACT aerosol powder Inhale 1 puff daily. Active folic acid 1 mg / vitamin b12 0.5 mg oral tablet (20 sources) Vitamin B12 Start: 11-12-2024 Vitamin B12-Fo lic Acid 0.5-1 mg tablet Active 1 {tbl} PO daily November 12, 2024 12:00am Cobalamin Combin ations (Vitamin S04-Dqlxz Acid) 500-400 MCG tablet Take by mouth. Active Vitamin R88-Ghtl c Acid 0.5-1 mg tab Take by mouth. Active Comment on above: Take by mouth. latanoprost 0.05 mg/ml ophthalmic solution (20 sources) Prostaglandin Analog Start: take 1 drop(s) into the eye(s) once daily latanoprost (Xalatan) 0.005 % ophthalmic solution instill 1 (ONE) drop into both eyes every night 09/30/2022 Active Start: 04-12-2020 Latanoprost 1 DROP bottle Active 1 NMA EACH EYE AT BEDTIME April 12, 2020 12:00am Start: 04-12-2020 Latanoprost Ac tive 1 DRP EACH EYE AT BEDTIME April 11, 2020 11:00pm Start: 03-15-2018 take 1 dose into the eye(s) once daily in the evening latanoprost 0.005% ophthalmic solution Dose = 1 drop(s), Eyes, both, qPM, 0 Refill(s) Start Date: 03/15/18 Status: Ordered Repeat number: 1 Start: 03-15-2018 take 1 dose into the eye(s) once daily in the evening latanoprost 0.005% ophthalmic solution Dose = 1 drop(s), Eyes, both, qPM, 0 Refill(s) Start Date: 03/15/18 Status: Ordered Start: 09-18-2016 take 1 drop(s) into the eye(s) at bedtime latanoprost (XALATAN) 0.005 % ophthalmic solution INSTILL 1 (ONE) DROP IN BOTH EYES AT BEDTIME 3 09/18/2016 Active Comment on above: instill 1 (ONE) DROP IN BOTH EYES NIGHTLY losartan potassium 25 mg oral tablet (20 sources) Angiotensin 2 Receptor Marni Start: 07-22-2020 take 1 tablet by mouth once daily losartan (Cozaar) 25 MG tablet Take 25 mg by mouth daily. 11/02/2022 Active Comment on above: Take 1 (ONE) tab(s) Oral EVERY Day magnesium sulfate 225 MG / potassium chloride 188 MG / sodium sulfate 1479 MG Oral Tablet [Sutab] (1 source) Start: 07-05-2023 take 1 tablet by mouth once in the evening Sutab oral tablet See Instructions, take as directed by your provider at [facility] starting at 4 pm, the day before the colonoscopy, # 24 tab(s), 0 Refill(s), Pharmacy: [id number], Tubular adenoma of colon, 157.5, cm, 07/05/23 12:56:00 EST, Height, kg, 07/05/23 12:56:00 EST, Dosing Weight Start Date: 07/05/23 Status: Ordered naproxen 375 mg oral tablet (9 sources) Nonsteroidal Anti-inflammatory Drug Start: 02-12-2023 End: 02-22-2023 naproxen 375 mg oral tablet Dose : 375 mg = 1 tab(s), Oral, BID, PRN as needed for pain, prn pain with food, # 20 tab(s), 0 Refill(s), 02/22/23 1:43:00 PM EDT Start Date: 02/12/23 Stop Date: 02/22/23 Status: Ordered Start: 07-18-2020 End: 10-20-2022 take 1 tablet by mouth twice daily as needed Naproxen 500 MG tablet Discontinued 500 mg PO TWICE DAILY NEEDED July 18, 2020 1:00am October 20, 2022 3:26pm Start: 01-27-2016 End: 04-09-2016 take 2 tablets by mouth twice daily Naproxen 250 MG tablet Discontinued 500 mg PO TWICE A DAY January 27, 2016 12:00am April 09, 2016 12:38pm Start: 01-27-2016 End: 04-09-2016 take 500 mg by mouth twice daily Naproxen Discontinued 500 MG PO TWICE A DAY January 26, 2016 11:00pm April 09, 2016 11:38am nitroglycerin 0.4 mg sublingual tablet (20 sources) Nitrate Vasodilator Start: 07-03-2024 End: 12-30-2024 nitroglycerin 0.4 mg sublingual tablet 0.4 mg, Sublingual, q5min, If chest pain not relieved in 5 minutes after first dose, seek immediate medical attention not to exceed 3 doses/15 min--if pain persists, seek medical attention, # 20 tab(s), 1 Refill(s), Pharmacy: [facility], CAD in [place] artery, 157.5, cm, 07/03/24 15:04:00 EST, Height, kg, 07/03/24 14:49:00 EST, Dosing Weight Start Date: 07/03/24 Stop Date: 12/30/24 Status: Ordered Quantity: 20.0 Unit: tab(s) Repeat number: 2 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 Start: 10-12-2022 take 1 tablet under the tongue once Nitroglycerin 0.4 mg tablet, sublingual Active 0.4 mg SL ONCE October 12, 2022 12:00am as a single dose; administer 5-10 minutes before situation known to precipitate angina attack Start: 10-12-2022 Nitroglycerin Active 0.4 MG SL ONCE October 11, 2022 11:00pm as a single dose; administer 5-10 minutes before situation known to precipitate angina attack Start: 03-14-2018 nitroGLYcerin Dose : 0.4 mg =, Sublingual, 0 Refill(s) Start Date: 03/14/18 Status: Ordered omeprazole 40 mg delayed release oral capsule (20 sources) Proton Pump Inhibitor Start: 11-12-2024 Omeprazole 40 mg capsule,delayed release(DR/EC) Active 20 mg PO TWICE A DAY November 12, 2024 1:34pm Start: 10-20-2022 End: 11-12-2024 take 1 capsule by mouth twice daily Omeprazole 40 mg Capsule,Delayed Release(Dr/Ec) Discontinued 40 mg PO TWICE A DAY October 20, 2022 12:00am November 12, 2024 1:36pm Start: 09-19-2022 take 1 capsule by [facility] once daily omeprazole (PriLOSEC) [address] capsule Take 20 mg by mouth daily. 01/19/2023 Active Start: 09-16-2022 omeprazole 40 mg oral delayed release capsule Dose : 40 mg = 1 cap(s), Oral, qDay, # 30 cap(s), 0 Refill(s), Pharmacy: [facility], Gastritis, 157.5, cm, 08/26/22 14:53:00 EST, Height, kg, 09/16/22 14:25:00 EDT, Dosing Weight Start Date: 09/16/22 Status: Ordered Start: 08-26-2022 omeprazole 40 mg oral delayed release capsule Dose : 40 mg = 1 cap(s), Oral, qDay, # 30 cap(s), 0 Refill(s), Pharmacy: [facility], Gastritis, 157.5, cm, 08/26/22 14:53:00 EST, Height Start Date: 08/26/22 Status: Ordered PEG-3350 with Electrolytes (Eqv-GoLYTELY) oral powder for reconstitution (1 source) Start: 07-17-2023 PEG-3350 with Electrolytes (Eqv-GoLYTELY) oral powder for reconstitution See Instructions, Take as directed 1 day before colonoscopy. Follow instructions as provided by your GI provider at [facility]., # 1 EA, 0 Refill(s), Pharmacy: [facility], 157.5, cm, 07/05/23 12:56:00 EST, Height, kg, 07/05/23 12:56:00 EST, Dosing Weight Start Date: 07/17/23 Status: Ordered polyethylene glycol 3350 06363 mg powder for oral solution (20 sources) Osmotic Laxative Start: 02-09-2024 take 17 doses by mouth once daily as needed polyethylene glycol 3350 oral powder for reconstitution Dose : 17 gram(s) =, Oral, Daily, PRN if needed, 0 Refill(s) Start Date: 02/09/24 Status: Ordered Repeat number: 1 Start: 10-12-2022 End: 10-20-2022 Polyethylene Glycol 3350 (Mi ralax) 17 gram/dose powder Discontinued 4 g PO DAILY October 12, 2022 12:00am October 20, 2022 3:26pm Start: 09-16-2022 End: 12-15-2022 polyethylene glycol, PEG, 33 50 (Glycolax) 17 GM/SCOOP powder TAKE 17G BY MOUTH DAILY. DISSOLVE IN WATER OR JUICE 09/16/2022 Active Start: 12-29-2020 take 17 doses by key twice daily as needed for constipation MiraLax oral powder for reconstitution Dose : 17 gram(s) =, Oral, BID, PRN Constipation, # 510 gram(s), 0 Refill(s) Start Date: 12/29/20 Status: Ordered Sodium Sulfate-Mag Sulfate-KCl (Sutab) 3345-143-477 MG tablet (12 sources) Start: 07-05-2023 Sodium Sulfate -Mag Sulfate-KCl (Sutab) 5653-080-384 MG tablet Take by mouth. 07/05/2023 Active traZODone hydrochloride 50 mg oral tablet (4 sources) Serotonin Reuptake Inhibitor Start: 07-03-2024 End: 12-30-2024 take 1 tablet by mouth at bedtime Trazodone 50 mg tablet Active 50 mg PO AT BEDTIME November 12, 2024 12:00am Trelegy Ellipta 100 mcg-62.5 mcg-25 mcg/inh inhalation powder (4 sources) Start: 02-09-2024 take 1 dose by mouth once daily Trelegy Ellipta 100 mcg-62.5 mcg-25 mcg/inh inhalation powder Dose = 1 puff(s), Inhalation, qDay, at the same time every day. Following administration, rinse mouth with water after use (do not swallow)., # 60 EA, 0 Refill(s) Start Date: 02/09/24 Status: Ordered Quantity: 60.0 Unit: EA Repeat number: 1 Start: 02-09-2024 take 1 dose by mouth once daily Trelegy Ellipta 100 mcg-62.5 mcg-25 mcg/inh inhalation powder Dose = 1 puff(s), Inhalation, qDay, at the same time every day. Following administration, rinse mouth with water after use (do not swallow)., # 60 EA, 0 Refill(s) Start Date: 02/09/24 Status: Ordered varenicline 0.5 mg oral tablet (20 sources) Partial Cholinergic Nicotinic Agonist Start: 07-07-2022 take 1 tablet by mouth once daily Chantix Starter Pack 0.5 mg-1 mg oral tablet See Instructions, 0.5mg day 1-3 0.5 mg BID days 4-7 1 mg BID day 8 and after, # 1 packet(s), 0 Refill(s), Pharmacy: [facility], Tobacco use, 157.5, cm, 05/03/22 11:20:00 EST, Height Start Date: 07/07/22 Status: Ordered End: 05-03-2024 varenicline tartrate (CHANTI X ORAL) Take by mouth. 05/03/2024 Discontinued (Other) varenicline tart rate (CHANTIX ORAL) Take by mouth. Active varenicline tart rate (CHANTIX ORAL) Take by mouth. 0 Active Vitamin B Complex (B Complex-Vitamin B12) tablet (4 sources) Start: 10-12-2022 Vitamin B Comp toribio (B Complex-Vitamin B12) tablet Active 1 {tbl} PO DAILY October 12, 2022 12:00am Start: 10-12-2022 take 1 tablet by key th once daily Vitamin B Complex (B Complex-Vitamin B12) tablet Active 1 TABLET PO DAILY October 11, 2022 11:00pm vitamin b complex capsule (6 sources) Start: 04-29-2024 take 1 capsule by mouth once vitamin b complex capsule Take 1 capsule by mouth every afternoon. 04/29/2024 Active Vitamin B Complex oral capsule (14 sources) Start: 12-29-2023 End: 12-23-2024 take 1 capsule by mouth once daily Vitamin B Complex oral capsule Dose = 1 cap(s), Oral, qDay, # 90 cap(s), 3 Refill(s), Pharmacy: [facility], 157.5, cm, 12/29/23 13:48:00 EDT, Height, kg, 12/29/23 13:48:00 EDT, Dosing Weight Start Date: 12/29/23 Stop Date: 12/23/24 Status: Ordered Quantity: 90.0 Unit: cap(s) Repeat number: 4 Start: 12-29-2023 End: 12-23-2024 take 1 capsule by mouth once daily Vitamin B Complex oral capsule Dose = 1 cap(s), Oral, qDay, # 90 cap(s), 3 Refill(s), Pharmacy: [facility], 157.5, cm, 12/29/23 13:48:00 EDT, Height, kg, 12/29/23 13:48:00 EDT, Dosing Weight Start Date: 12/29/23 Stop Date: 12/23/24 Status: Ordered Start: 09-13-2021 Vitamin B Comp toribio oral capsule Oral, qDay, 0 Refill(s) Start Date: 09/13/21 Status: Ordered vitamin B12 (4 sources) Vitamin B12 Start: 01-08-2021 take 1 dose by mouth once daily Vitamin B12 Dose : 1,000 mcg =, Oral, Daily, 0 Refill(s) Start Date: 01/08/21 Status: Ordered Start: 01-08-2021 Vitamin B12 0 Refill(s) Start Date: 01/08/21 Status: Ordered Completed/Discontinued Medications Medication Drug Class(es) Dates Sig (Normalized) Sig (Original) acetaminophen 325 mg / HYDROcodone bitartrate 5 mg oral tablet (4 sources) Opioid Agonist Start: 06-17-2019 End: 06-19-2019 Hydrocodone-Acetami nophen 1 TABLET tablet Discontinued 1 {tbl} PO EVERY 4 HOURS NEEDED as needed for Pain 14 2 June 17, 2019 June 18, 2019 1:00am June 19, 2019 1:07am Start: 06-17-2019 End: 06-19-2019 take 1 tablet by mouth every four hours as needed Hydrocodone-Acetaminophen Discontinued 1 TABLET PO EVERY 4 HOURS NEEDED 14 2 June 17, 2019 June 19, 2019 12:07am ALPRAZolam 0.25 mg disintegrating oral tablet (2 sources) Benzodiazepine Start: 01-02-2024 End: 01-02-2024 take 0.25 mg by mouth once as needed for anxiety 0.25 mg, Oral, Once PRN, anxiety, Starting on Mon01/02/24 at 0625, For 1 dose, Preprocedure, Please do not administer prior to obtaining consent and/or history and physical. calcium chloride 0.0014 meq/ml / potassium chloride 0.004 meq/ml / sodium chloride 0.103 meq/ml / sodium lactate 0.028 meq/ml injectable solution (2 sources) Start: 01-02-2024 End: 01-02-2024 take 125 mL intravenously every hour 125 mL/hr, IntraVENous, Continuous, Starting on Mon01/02/24 at 1100, Recovery (only) 1 ml diphenhydrAMINE hydrochloride 50 mg/ml cartridge (2 sources) Histamine-1 Receptor Antagonist Start: 01-02-2024 End: 01-02-2024 12.5 mg, IntraVENous, Once PRN, itching, Starting on Mon01/02/24 at 1054, For 1 dose, Recovery (only) 2 ml fentaNYL 0.05 mg/ml injection (4 sources) Opioid Agonist Start: 01-02-2024 End: 01-02-2024 50 mcg, IntraVENous, Every 5 min PRN, severe pain (7-10), Starting on Mon01/02/24 at 1106, For 2 doses, Recovery (only), Phase I and Phase II- Initial therapy for severe pain (7-10). Restricted to a 90 minute time frame starting when the patient can verbally state their pain score. If after 2 doses the pain score does not decrease by more than one point, then call the provider. If oral meds are utilized, do not return to initial therapy medications. Start: 01-02-2024 End: 01-02-2024 25 mcg, IntraVENous, Every 5 min PRN, moderate pain (4-6), Starting on Mon01/02/24 at 1106, For 2 doses, Recovery (only), Phase I and Phase II- Initial therapy for moderate pain (4-6). Restricted to a 90 minute time frame starting when the patient can verbally state their pain score. If after 2 doses the pain score does not decrease by more than one point, then call the provider. If oral meds are utilized, do not return to initial therapy medications. iopamidol (Isovue-370) 76 % injection 75 mL (2 sources) Start: 12-06-2023 End: 12-06-2023 take 75 mL intravenously once as needed 75 mL, IntraVENous, IMG once PRN, contrast, Starting on Mon12/06/23 at 1456, For 1 dose labetalol (Normodyne,Trandat e) injection 5 mg (2 sources) Start: 01-02-2024 End: 01-02-2024 labetalol (Normodyne,Tranda te) injection 5 mg meloxicam 15 mg oral tablet (20 sources) Nonsteroidal Anti-inflammatory Drug Start: 08-10-2020 End: 01-08-2025 take 1 tablet by mouth once daily meloxicam (MOBIC) 15 mg tablet Indications: CMC arthritis , Trigger finger of thumb, unspecified laterality Take 1 tablet by mouth once daily. 30 tablet 3 08/10/2020 01/08/2025 Discontinued (Course of therapy completed) Comment on above: Take 1 tablet by key once daily. 2 ml ondansetron 2 mg/ml injection (2 sources) Serotonin-3 Receptor Antagonist Start: 01-02-2024 End: 01-02-2024 4 mg, IntraVENous, Once PRN, nausea, Starting on Mon01/02/24 at 1054, For 1 dose, Recovery (only), Initial antiemetic therapy. OTC sleep aid (4 sources) Start: 02-09-2024 OTC sleep aid OTC sleep aid, 2 tab(s), qHS, 0 Refill(s), 66.6 Start Date: 02/09/24 Status: Ordered Repeat number: 1 Start: 02-09-2024 OTC sleep aid OTC sleep aid, 0 Refill(s), 66.6 Start Date: 02/09/24 Status: Ordered predniSONE 10 mg oral tablet (9 sources) Start: 02-09-2024 End: 02-21-2024 prednisone 10mg tab (TAPER) Taper 40-30-20-10 x 3 days each dose, Oral, qDay, Take with food/meal, # 30 tab(s), 0 Refill(s), Pharmacy: [facility], Low back pain Bilateral hip pain, 157.5, cm, 02/09/24 15:26:00 EDT, Height, kg, 02/09/24 15:26:00 EDT, Dosing Weight Start Date: 02/09/24 Stop Date: 02/21/24 Status: Ordered Start: 03-14-2023 End: 03-19-2023 take 2 tablets by mouth once daily predniSONE (DELTASONE) 20 mg tablet Take 2 tablets by mouth once daily for 5 days. 10 tablet 03/14/2023 03/19/2023 Start: 04-18-2022 predniSONE (DE LTASONE) 10 mg tablet Indications: Trochanteric bursitis of right hip , Hip pain Take 6 pills (all at once) on day 1, 5 pills on day 2, 4 pills on day 3, 3 pills on day 4, 2 pills on day 5, and 1 pill on day 6. 21 tablet 0 04/18/2022 Active Start: 07-18-2020 End: 07-22-2020 take 4 tablets by mouth once daily Prednisone 10 MG tablet Discontinued 40 mg PO DAILY 02 10July 18, 2020 1:00am July 21, 2020 1:00am July 22, 2020 1:02am Start: 07-18-2020 End: 07-22-2020 take 40 mg by mouth once daily Prednisone Discontinued 40 MG PO DAILY 02 10July 18, 2020 12:00am July 22, 2020 12:02am Comment on above: Take 6 pills (all at once) on day 1, 5 pills on day 2, 4 pills on day 3, 3 pills on day 4, 2 pills on day 5, and 1 pill on day 6. sildenafil 25 mg oral tablet (11 sources) Phosphodiesterase 5 Inhibitor Start: 10-12-2022 End: 10-20-2022 Sildenafil 25 mg tablet Discontinued 25 mg PO DAILY as needed October 12, 2022 12:00am October 20, 2022 3:26pm administer 30 minutes to 4 hours before activity Start: 02-12-2021 take 5 tablets by [facility] every twenty-four hours as needed sildenafil 20 mg oral tablet See Instructions, PRN erectile dysfunction, 2-5 tablets as needed. DO NOT EXCEED 100 MG IN 24 HOURS., # 30 tab(s), 11 Refill(s), Erectile dysfunction after radical prostatectomy Start Date: 02/12/21 Status: Ordered 50 ml sodium chloride 9 mg/m l injection (20 sources) Start: 01-02-2024 End: 01-02-2024 500 mL, IntraVENous, at 1,00 0 mL/hr, Administer over 0.5 Hours, PRN, Anti-nausea, Starting on Mon01/02/24 at 1054, Recovery (only), Indications: Anti-nausea Start: 01-02-2024 End: 01-02-2024 10 mL, IntraVENous, Every 12 hours scheduled (2 times per day), First dose on Mon01/02/24 at 1100, Recovery (only) Start: 01-02-2024 End: 01-02-2024 take 50 mL intravenously every hour 50 mL/hr, IntraVENous, Continuous, Starting on Mon01/02/24 at 0630, Preprocedure, Upon admission to sameday - please start iv if patient does not have iv access. Start: 01-02-2024 End: 01-02-2024 take 100 mL intravenously every hour as needed, then take 20 mL intravenously every hour as needed 5-250 mL/hr, IntraVENous, PRN, if patient receiving piggyback infusions and maintenance fluids are not ordered OR KVO fluids to protect IV site / prevent frequent line interruptions/ long duration, Starting on Mon01/02/24 at 0626, Preprocedure, For piggyback infusion, administer at same rate as piggyback for a total of 25 mL. Enter 25 mL into dose field and piggyback rate into rate field of order. If piggyback is infusing at a rate less than 100 mL/hr, enter 25 mL into dose field and 100 mL/hr into rate field of order. For KVO fluids, enter rate of 20 mL/hr or less into rate field of order. Start: 01-02-2024 End: 01-02-2024 take 10 mL intravenously once as needed 10 mL, IntraVENous, PRN, line care, Starting on Mon01/02/24 at 0626, Preprocedure, After every IV line use Start: 01-02-2024 End: 01-02-2024 take 5-40 mL intravenously every twelve hours 5-40 mL, IntraVENous, Every 12 hours, First dose on Mon01/02/24 at 0630, Preprocedure, For Line Patency: Peripheral IV = 5 mL; Midline or Central Line = 10 mL/lumen. If following IV push medication, administer flush at same rate as the IV push. Flush volume is determined by type of infusion therapy being given. For non-viscous solutions use: Peripheral IV = 5 mL Midline or Central Line = 10 mL/lumen For viscous solutions (i.e. blood components, parenteral nutrition, contrast media, or after obtaining blood sample) use: Peripheral IV = 10 mL Midline or Central Line = 20 mL/lumen traMADol hydrochloride 50 mg oral tablet (4 sources) Opioid Agonist Start: 10-10-2016 End: 11-06-2016 take 1 tablet by mouth every four hours as needed for pain Tramadol 50 MG tablet Discontinued 50 mg PO EVERY 4 HOURS NEEDED as needed for Pain October 10, 2016 12:00am November 06, 2016 12:20pm Vitamin B Comp And C No.3 (B Complex Plus Vitamin C) 09-31-36-5-300 mg capsule (3 sources) Start: 02-02-2024 End: 11-12-2024 Vitamin B Comp And C No.3 (B Complex Plus Vitamin C) 14-05-73-5-300 mg capsule Discontinued 1 NMA PO DAILY February 02, 2024 12:00am November 12, 2024 1:36pm give with food (meal/snack) Start: 02-02-2024 Vitamin B Comp And C No.3 (B Complex Plus Vitamin C) 38-29-94-5-300 mg capsule Active 1 NMA PO DAILY February 02, 2024 12:00am give with food (meal/snack) Problems Active Problems Problem Classification Problem Date Documented Da te Episodic/Chronic Cancer of bronchus; lung (3 sources) Malignant tumor of lung 02-13-2024 Chronic Cancer of prostate (20 sources) Malignant tumor of prostate; Translations: [Malignant neoplasm of prostate] Onset: 5 01-19-2021 Chronic Cancer of prostate (8 sources) History of malignant neoplasm of prostate; Translations: [Personal history of malignant neoplasm of prostate] Onset: 5 10-20-2022 Episodic Comment on above: No evidence of disea se clinically. No evidence of disea se clinically. PSA is normal. Chronic obstructive pulmonary disease and bronchiectasis (6 sources) Chronic obstructive lung disease 02-23-2023 Chronic Deficiency and other anemia (1 source) Nutritional anemia; Translations: [Nutritional anemia, unspecified] Episodic Deficiency and other anemia (8 sources) Anemia; Translations: [Anemia, unspecified] Episodic Deficiency and other anemia (1 source) Anemia, unspecified; Translations: [Anemia, unspecified] Onset: 5 Episodic Disorders of lipid metabolism (20 sources) Hypercholesterolemia; Translations: [Hyperlipidemia] Onset: 6 03-15-2018 Chronic Esophageal disorders (9 sources) Gastroesophageal reflux disease 09-16-2022 Chronic Essential hypertension (20 sources) Benign essential hypertension; Translations: [Essential (primary) hypertension] Onset: 1 01-07-2021 Chronic Genitourinary symptoms and ill-defined conditions (20 sources) Male urinary stress incontinence; Translations: [Urinary incontinence] 05-19-2021 Chronic Glaucoma (20 sources) Glaucoma; Translations: [Unspecified glaucoma] Onset: 8 03-15-2018 Chronic Hyperplasia of prostate (20 sources) Benign prostatic hyperplasia with lower urinary tract symptoms; Translations: [Benign localized hyperplasia of prostate with urinary obstruction and other lower urinary tract symptoms (LUTS)] Onset: 0 04-05-2010 Chronic Melanomas of skin (20 sources) Malignant melanoma of back; Translations: [Malignant melanoma of other part of trunk] Onset: 6 Resolved: 7 10-19-2016 Chronic Melanomas of skin (9 sources) H/O Malignant melanoma; Translations: [Personal history of malignant melanoma of skin] Onset: 5 Episodic Comment on above: No evidence of disea se. On observation. Nonspecific chest pain (4 sources) Chest pain; Translations: [Chest pain, unspecified] 08-05-2020 Episodic Osteoarthritis (20 sources) Degenerative joint disease of hand; Translations: [Primary osteoarthritis, unspecified hand] Onset: 1 01-07-2021 Chronic Other aftercare (4 sources) Surgical follow-up; Translations: [Encounter for surgical aftercare following surgery on the circulatory system] 11-16-2023 Episodic Other and unspecified benign neoplasm (6 sources) Tubular adenoma of colon 07-04-2023 Episodic Other circulatory disease (20 sources) Peripheral arterial occlusive disease; Translations: [Disorder of arteries and arterioles, unspecified] Onset: 8 01-07-2021 Chronic Other circulatory disease (4 sources) History of arterial bypass of lower limb artery; Translations: [Presence of other vascular implants and grafts] 03-29-2018 Chronic Other connective tissue disease (20 sources) Pain in right lower limb; Translations: [Pain in right leg] 01-07-2021 Episodic Other connective tissue disease (18 sources) Snapping thumb syndrome 01-07-2021 Episodic Other connective tissue disease (1 source) Trochanteric bursitis of right hip; Translations: [Trochanteric bursitis, right hip] Episodic Other connective tissue disease (1 source) Muscle pain; Translations: [Myalgia, unspecified site] Onset: Episodic Other gastrointestinal disorders (14 sources) Constipation; Translations: [Constipation, unspecified] 08-26-2022 Episodic Other lower respiratory disease (4 sources) Dyspnea; Translations: [Shortness of breath] 02-23-2024 Episodic Other lower respiratory disease (9 sources) Nodule of lung; Translations: [Solitary pulmonary nodule] 02-23-2024 Episodic Other lower respiratory disease (2 sources) Multiple nodules of lung; Translations: [Other nonspecific abnormal finding of lung field] 01-08-2025 Episodic Other lower respiratory disease (1 source) Other nonspecific abnormal finding of lung field; Translations: [Multiple lung nodules] Onset: 5 Episodic Other male genital disorders (18 sources) Erectile dysfunction following radical prostatectomy 02-12-2021 Chronic Other nervous system disorders (18 sources) Peripheral nerve disease 02-27-2020 Chronic Other non-traumatic joint disorders (18 sources) Arthropathy of joint of hand 01-07-2021 Chronic Other non-traumatic joint disorders (5 sources) Hip pain; Translations: [Pain in unspecified hip] Episodic Other non-traumatic joint disorders (1 source) Shoulder joint pain; Translations: [Pain in unspecified shoulder] Onset: 3 Episodic Other skin disorders (1 source) Solar lentigo; Translations: [Other melanin hyperpigmentation] Episodic Other upper respiratory disease (3 sources) Posterior epistaxis; Translations: [Epistaxis] 09-26-2024 Episodic Other upper respiratory disease (1 source) Epistaxis; Translations: [Epistaxis] Onset: 5 Episodic Otitis media and related conditions (2 sources) Acute left otitis media; Translations: [Otitis media, unspecified, left ear] Episodic Peripheral and visceral atherosclerosis (20 sources) Atherosclerosis of [place] arteries of the extremities; Translations: [Peripheral vascular disease] Onset: 8 10-19-2016 Chronic Residual codes; unclassified (18 sources) Chronic back pain 02-27-2020 Episodic Residual codes; unclassified (18 sources) Middle insomnia 02-27-2020 Episodic Residual codes; unclassified (18 sources) Pain 01-07-2021 Episodic Spondylosis; intervertebral disc disorders; other back problems (20 sources) Degeneration of lumbar intervertebral disc; Translations: [Herniation of intervertebral disc without myelopathy] Onset: 0 01-07-2021 Chronic Substance-related disorders (20 sources) Nicotine dependence; Translations: [Tobacco user] Onset: 5 03-14-2018 Chronic Substance-related disorders (10 sources) Opioid withdrawal; Translations: [Opioid use, unspecified with withdrawal] Onset: 5 01-07-2021 Episodic Superficial injury; contusion (4 sources) Abrasion of left cornea; Translations: [Injury of conjunctiva and corneal abrasion without foreign body, left eye, initial encounter] 03-29-2018 Episodic Unclassified (18 sources) Chronic pain of right upper limb Onset: 7 01-07-2021 Unclassified (20 sources) Patient encounter status Onset: 2 04-29-2020 Unclassified (18 sources) Preprocedural examination done 01-07-2021 Unclassified (18 sources) Structure of wall of urinary bladder (body structure) 02-27-2020 Unclassified (3 sources) Smoking 04-07-2016 Unclassified (1 source) Low back pain, unspecified; Translations: [Low back pain, unspecified] Onset: Past or Other Problems Problem Classification Problem Date Documented Da te Episodic/Chronic Abdominal pain (20 sources) Right lower quadrant pain; Translations: [Right lower quadrant pain] Onset: 12-14-2006 Resolved: 12-17-2008 12-17-2008 Episodic Aortic and peripheral arterial embolism or thrombosis (20 sources) Vascular disorder; Translations: [Embolism and thrombosis of unspecified artery] Onset: 09-19-2007 Resolved: 12-17-2008 12-17-2008 Chronic Diabetes mellitus without complication (20 sources) Impaired fasting glycemia; Translations: [Impaired fasting glucose] Onset: 07-21-2005 01-07-2021 Episodic Other aftercare (5 sources) Patient encounter status; Translations: [Other bed bug exterminator (current) drug therapy] Onset: 02-24-2012 02-24-2012 Episodic Other aftercare (20 sources) Long-term current use of drug therapy; Translations: [Other long-term (current) drug therapy] Onset: 02-24-2012 02-24-2012 Episodic Other and unspecified benign neoplasm (20 sources) Multiple benign melanocytic nevi ; Translations: [Melanocytic nevi, unspecified] Onset: 02-04-2016 Resolved: 02-04-2017 Episodic Other and unspecified benign neoplasm (20 sources) Benign neoplasm of colon; Translations: [Benign neoplasm of colon, unspecified] Onset: 05-27-2005 Resolved: 02-04-2017 02-04-2017 Episodic Other and unspecified benign neoplasm (20 sources) Dysplastic nevus of skin; Translations: [Melanocytic nevi, unspecified] Onset: 02-04-2016 Resolved: 02-04-2017 02-04-2017 Episodic Other connective tissue disease (20 sources) Rupture of tendon of biceps, long head; Translations: [Strain of muscle, fascia and tendon of long head of biceps, unspecified arm, initial encounter] Onset: 05-16-2012 01-07-2021 Episodic Other connective tissue disease (20 sources) Tenosynovitis; Translations: [Other synovitis and tenosynovitis, unspecified hand] Onset: 11-07-2005 Resolved: 02-04-2017 02-04-2017 Episodic Other gastrointestinal disorders (20 sources) History of diverticulitis; Translations: [Personal history of other diseases of the digestive system] Onset: 10-02-2020 01-07-2021 Episodic Other lower respiratory disease (2 sources) Solitary pulmonary nodule; Translations: [Solitary pulmonary nodule] Onset: 01-30-2024 Episodic Other nervous system disorders (20 sources) Carpal tunnel syndrome; Translations: [Carpal tunnel syndrome, unspecified upper limb] Onset: 06-01-2010 Resolved: 02-04-2017 02-04-2017 Chronic Other nervous system disorders (1 source) Other disturbances of skin sensation; Translations: [Other disturbances of skin sensation] Onset: 04-05-2024 Episodic Other non-traumatic joint disorders (20 sources) Chronic pain of right upper limb; Translations: [Pain in right shoulder] Onset: 02-04-2017 02-04-2017 Episodic Other skin disorders (20 sources) Seborrheic keratosis; Translations: [Other seborrheic keratosis] Onset: 02-04-2016 Resolved: 02-04-2017 Episodic Other skin disorders (20 sources) Lentiginosis; Translations: [Other melanin hyperpigmentation] Onset: 02-04-2016 Resolved: 02-04-2017 02-04-2017 Episodic Residual codes; unclassified (18 sources) Tobacco user Onset: 04-14-2005 01-07-2021 Episodic Screening and history of mental health and substance abuse codes (2 sources) Ex-smoker; Translations: [Personal history of nicotine dependence] Onset: 12-29-2023 02-23-2024 Episodic Spondylosis; intervertebral disc disorders; other back problems (20 sources) Spasm of back muscles; Translations: [Sciatica] Onset: 07-17-2009 01-07-2021 Episodic Unclassified (4 sources) SMALL BOWEL ileus 08-05-2020 Results Test Name Value Interpretation Reference Range Facility [facility] 03-07-2025 [facility] Telephone ([id number]) ROMLIDIA MORAN ([id number]) 1955 M Date Time Provider Department 03/07/25 MELINDA SOLARES [id number] During your visit today, we recorded the following information about you: Melinda Solares HUC 03/07/2025 12:41 PM Signed Contacted pt to schedule appointment with . No answer,left message. Allergies As of Date: 03/07/2025 Noted Allergy Reaction NABUMETONE 06/01/2005 8 - GI Upset Date Reviewed: 05/03/2024 Reviewed by: Jojo Lewis, CT - Fully Assessed Reason for Visit: Appointment [186] Prescriptions as of 03/07/2025 - ferrous sulfate 325 mg (65 mg iron) EC tablet TAKE 1 TABLET BY MOUTH EVERY MONDAY, MONDAY AND MONDAY - TRELEGY ELLIPTA 100-62.5-25 mcg inhalation powder Inhale 1 Puff as instructed once daily. - omeprazole (PRILOSEC) 20 mg capsule Take 20 mg by mouth once daily. - vitamin b complex capsule Take 1 capsule by mouth every afternoon. - Vitamin Y43-Xovag Acid 0.5-1 mg tab Take by mouth. - losartan (COZAAR) 25 mg tablet Take 1 (ONE) tab(s) Oral EVERY Day - latanoprost (XALATAN) 0.005 % ophthalmic solution instill 1 (ONE) DROP IN BOTH EYES NIGHTLY - atorvastatin (LIPITOR) 40 mg tablet Take 40 mg by mouth once daily. - aspirin, enteric coated (ECOTRIN LOW STRENGTH) 81 mg EC tablet Take 1 tablet by mouth once daily. Problem List As Of Date 03/07/2025 Noted Resolved TOBACCO USE DISORDER [F17.200] 04/14/2005 Benign neoplasm of colon [D12.6] 05/27/2005 02/04/2017 HYPERLIPIDEMIA NEC/NOS [E78.5] 07/21/2005 IMPAIRED FASTING GLUCOSE [R73.01] 07/21/2005 Other tenosynovitis of hand and wrist [M65.849,*11/07/2005 02/04/2017 ABDOMINAL PAIN RLQ [R10.31] 12/14/2006 12/17/2008 VENOUS THROMBOSIS NOS [I74.9] 09/19/2007 12/17/2008 PERIPH VASCULAR DIS NOS [I73.9] 09/19/2007 GLAUCOMA NOS [H40.9] 03/21/2008 Sciatica [M54.30] 07/17/2009 Disc Displacement [[id number]] 07/17/2009 BPH loc w urin obs/LUTS [N40.1] 04/05/2010 Mixed hyperlipidemia [E78.2] Hypertrophy of prostate without urinary obstruc* Carpal tunnel syndrome [G56.00] 06/01/2010 02/04/2017 DDD (degenerative disc disease), lumbar [M51.36*09/19/2011 Lumbar spondylosis [M47.816] 09/19/2011 Postlaminectomy syndrome [M96.1] 09/23/2011 longterm use of drug [Z79.899] 02/24/2012 Labral tear of long head of biceps tendon [S46.*05/16/2012 Rupture of long head biceps tendon [S46.119A] 05/16/2012 Malignant melanoma of skin of trunk, except scr*11/25/2015 02/04/2017 Melanoma of back (HCC) [C43.59] 11/26/2015 Atypical nevi [D22.9] 02/04/2016 02/04/2017 Multiple benign nevi [D22.9] 02/04/2016 02/04/2017 Lentigines [L81.4] 02/04/2016 02/04/2017 Seborrheic keratosis [L82.1] 02/04/2016 02/04/2017 Chronic right shoulder pain [M25.511, G89.29] 02/04/2017 PAD (peripheral artery disease) (HCC) [I73.9] 02/04/2017 Essential hypertension, benign [I10] 10/02/2020 History of colonic diverticulitis [Z87.19] 10/02/2020 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] 10/02/2020 Encounter Status:Closed by MELINDA SOLARES on 03/07/25 Normal [facility] Office Visiton 02-18-2025 Follow-up visit [id number] [facility] 1955 Date Provider Department Center 02/18/2025 [id number] ROSA [facility] None Family History Problem Relation Age of Onset High Blood Pressure Brother Cancer Mother Cancer Brother Cancer Father Diabetes Father Family Status - Relation Status Age at Brother Alive Mother Father Level of Service:[id number] [place] OFFICE/OUTPATIENT ESTABLISHED LOW MDM 20 MIN Reason for Visit and Comments: Follow-up [[id number]] - recall arterial duplex 01/17/25 Normal [facility] Progress Noteon 02-18-2025 Progress Note [facility] Vascular Surgery Follow-up Office Visit CHIEF COMPLAINT: Chief Complaint Patient presents with Follow-up recall arterial duplex 01/17/25 HISTORY OF PRESENT ILLNESS: Lidia Singh is a 69 y.o. male who returns today for follow-up for lower extremity PAD. Hx of right femoral artery aneurysm repair 2013; Left fem-tib bypass 2013 and right fem tib bypass 2012, left iliac stent 2023. Last OV 2023. Here for recall appointment. Accompanied by his . Doing well. Working 11 hour days. States "legs feel great" He denies any episodes of lateralizing weakness, facial droop, aphasia, or unilateral sudden temporary blindness. Denies any claudication symptoms or rest pain. Denies any slow or nonhealing sores to feet. Denies any abdominal pain. Hx of chronic low back pain Recent arterial duplex stable from prior testing Currently taking the following medications for vascular risk factor modification: Antiplatelet/Anticoagu lant: Aspirin Statin: atorvastatin Smoking Status: former Past Medical History: Medical History[1] Past Surgical History: Surgical History[2] Current Medications: Current Medications[3] Allergies: Patient has no known allergies. Social History: Social History Socioeconomic History Marital status: Spouse name: Not on file Number of children: Not on file Years of education: Not on file Highest education level: Not on file Occupational History Not on file Tobacco Use Smoking status: Former Current packs/day: 0.00 Types: Cigarettes Quit date: 02/2023 Years since quittin.0 Smokeless tobacco: Never Substance and Sexual Activity Alcohol use: No Drug use: Yes Types: Marijuana Sexual activity: Not on file Other Topics Concern Not on file Social History Narrative Not on file Social Drivers of Health Financial Resource Strain: Not on file Food Insecurity: Not on file Transportation Needs: Not on file Physical Activity: Not on file Stress: Not on file Social Connections: Not on file Intimate Partner Violence: Not At Risk (01/02/2024) Humiliation, Afraid, Rape, and Kick questionnaire Fear of Current or Ex-Partner: No Emotionally Abused: No Physically Abused: No Sexually Abused: No Housing Stability: Not on file Family History: Family History[4] REVIEW OF SYSTEMS: Review of Systems Constitutional: Negative. HENT: Negative. Eyes: Negative. Respiratory: Negative. Cardiovascular: Negative. Gastrointestinal: Negative. Endocrine: Negative. Genitourinary: Negative. Musculoskeletal: Positive for back pain (chronic). Skin: Negative. Allergic/Immunologic: Negative. Neurological: Negative. Hematological: Negative. Psychiatric/Behavioral : Negative. LABS: Lab Results Component Value Date CREATININE 1.03 12/11/2023 Lab Results Component Value Date WBC 8.5 12/11/2023 HGB 12.1 (L) 12/11/2023 HCT 36.1 (L) 12/11/2023 MCV 95.5 12/11/2023 PLT 222 12/11/2023 No results found for: "INR", "PROTIME" No results found for: VLDL PHYSICAL EXAM: Vitals: 02/18/25 1100 BP: 130/68 Resp: 18 Physical Exam Constitutional: Appearance: Normal appearance. He is well-groomed. Neck: Vascular: No carotid bruit. Cardiovascular: Rate and Rhythm: Normal rate and regular rhythm. Pulses: Carotid pulses are 2+ on the right side and 2+ on the left side. Radial pulses are 2+ on the right side and 2+ on the left side. Dorsalis pedis pulses are 2+ on the right side and 2+ on the left side. Posterior tibial pulses are 2+ on the right side and 2+ on the left side. Pulmonary: Effort: Pulmonary effort is normal. No respiratory distress. Breath sounds: Normal breath sounds. Abdominal: General: There is no distension. Palpations: There is no pulsatile mass. Tenderness: There is no abdominal tenderness. There is no guarding. Musculoskeletal: General: Normal range of motion. Cervical back: Normal range of motion and neck supple. Right lower leg: No edema. Left lower leg: No edema. Skin: General: Skin is warm and dry. Neurological: Mental Status: He is alert and oriented to person, place, and time. Psychiatric: Mood and Affect: Mood normal. Behavior: Behavior normal. Behavior is cooperative. Imaging Arterial Duplex 01/2025 The right femoral to tibial artery bypass graft is patent without stenosis. The left iliac artery stent is patent without stenosis. The left femoral to tibial artery bypass graft is patent without stenosis. Right side findings: Resting RIMMA is 0.95. This is within the normal range. Left side findings: Resting RIMMA is 0.97. This is within the normal range. ASSESSMENT/PLAN: Problem List Items Addressed This Visit Circulatory 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, bilateral legs (HCC) - Primary Other Visit Diagnoses Aftercare following surgery of the circulatory system 1. Stab (more content not included)... Normal [facility] [employer] [facility] No Panel InformationOrdered By: Caro Deutsch on 01-17-2025 Left RIMMA 0.97 [facility] [employer] Work Phone: Left arm BP 152 mmHg [facility] [employer] Work Phone: Left ALMA dist PSV 64.6 cm/s [facility] Work Phone: Left Dist Anastomosis EDV 4.6 cm/s [facility] [employer] Work Phone: Left Dist Anastomosis PSV 45.5 cm/s [facility] [employer] Work Phone: Left Dist Outflow EDV 0 cm/s [facility] Work Phone: Left Dist Outflow PSV 51.6 cm/s [facility] Work Phone: Left Dist Outflow PSV 111.1 cm/s [facility] Work Phone: Left dorsalis pedis BP 112 mmHg [facility] Work Phone: Left Graft 1 Left femoral to tibi al artery bypass graft [facility] Work Phone: Left Graft 2 Left common iliac artery stent [facility] [employer] Work Phone: Left Inflow Artery EDV 5.8 cm/s [facility] Work Phone: Left Inflow Artery EDV 0 cm/s [facility] Work Phone: Left Inflow Artery PSV 134.8 cm/s [facility] Work Phone: Left Inflow Artery PSV 80 cm/s [facility] Work Phone: Left Mid Outflow EDV 3.3 cm/s [facility] Work Phone: Left Mid Outflow EDV 0 cm/s [facility] Work Phone: Left Mid Outflow PSV 59.4 cm/s [facility] Work Phone: Left Mid Outflow PSV 83.5 cm/s [facility] Work Phone: Left Outflow Vessel EDV 4.5 cm/s [facility] Work Phone: Left Outflow Vessel EDV 0 cm/s [facility] Work Phone: Left Outflow Vessel PSV 70.9 cm/s [facility] Work Phone: Left Outflow Vessel PSV 110 cm/s [facility] Work Phone: Left peroneal dist PSV 59.4 cm/s [facility] Work Phone: Left posterior tibial 156 mmHg [facility] Work Phone: Left Prox Anastomosis EDV 3.3 cm/s [facility] Work Phone: Left Prox Anastomosis PSV 50.7 cm/s [facility] Work Phone: Left Prox Outflow EDV 4.1 cm/s [facility] Work Phone: Left Prox Outflow EDV 5.5 cm/s [facility] Work Phone: Left Prox Outflow PSV 57.7 cm/s [facility] Work Phone: Left Prox Outflow PSV 85.6 cm/s [facility] Work Phone: Left COMMERCIAL ASSISTANT dist PSV 87 cm/s [facility] Work Phone: Right RIMMA 0.95 [facility] Work Phone: Right arm BP 161 mmHg [facility] Work Phone: Right ALMA dist PSV 36 cm/s [facility] Work Phone: Right Dist Anastomosis EDV 0 cm/s [facility] Work Phone: Right Dist Anastomosis PSV 84.3 cm/s [facility] Work Phone: Right Dist Outflow EDV 3.7 cm/s [facility] Work Phone: Right Dist Outflow PSV 50.6 cm/s [facility] Work Phone: Right dorsalis pedis BP 153 mmHg [facility] Work Phone: Right Graft 1 Right femoral to tibial artery bypass graft [facility] Work Phone: Right Inflow Artery EDV 0 cm/s [facility] [employer] Work Phone: Right Inflow Artery PSV 176.2 cm/s [facility] [employer] Work Phone: Right Mid Outflow EDV 0 cm/s [facility] [employer] Work Phone: Right Mid Outflow PSV 59.1 cm/s [facility] [employer] Work Phone: Right Outflow Vessel EDV 0 cm/s [facility] Work Phone: Right Outflow Vessel PSV 75.6 cm/s [facility] Work Phone: Right peronal dist PSV 41.7 cm/s [facility] Work Phone: Right posterior tibial 144 mmHg [facility] Work Phone: Right Prox Anastomosis EDV 5.2 cm/s [facility] Work Phone: Right Prox Anastomosis PSV 51.8 cm/s [facility] Work Phone: Right Prox Outflow EDV 0 cm/s [facility] Work Phone: Right Prox Outflow PSV 36.9 cm/s [facility] Work Phone: Right COMMERCIAL ASSISTANT dist PSV 85.5 cm/s [facility] [employer] Work Phone: No Panel Informationon 01-17 The right femoral to tibial artery bypass graft is patent without stenosis. The left iliac artery stent is patent without stenosis. The left femoral to tibial artery bypass graft is patent without stenosis. Right side findings: Resting RIMMA is 0.95. This is within the normal range. Left side findings: Resting RIMMA is 0.97. This is within the normal range. Portions of exam performed by Shay Urbina Study Details A jimenez scale, color Doppler imaging and spectral Doppler analysis ultrasound was performed. During the study longitudinal and transverse views were obtained. Pulsed wave doppler and pulsed volume recording (PVR) was performed. The exam was performed with the patient in the supine position. Overall the study quality was good. Right Lower Arterial Anterior Tibial Artery: Patent. Posterior Tibial Artery: Patent. Peroneal Artery: Patent. Left Lower Arterial Anterior Tibial Artery: Patent. Posterior Tibial Artery: Patent. Peroneal Artery: Patent. RIMMA Right side findings: Normal resting RIMMA. Left side findings: Normal resting RIMMA. Right PVR waveforms: Normal - ankle. Left PVR waveforms: Normal - ankle. Comparison Study The exam was compared to the study performed on 07/22/2024. Right side findings: Resting RIMMA is 1.00. This is within the normal range. Patent right femoral to tibial artery bypass graft. Left side findings: Resting RIMMA is 1.03. This is within the normal range. Patent left femoral to tibial artery bypass graft. Lower Artery Bypass Graft Graft 1: right fem-tibial graft Graft inflow - patent. Proximal anastomosis - patent. Proximal graft - patent. Mid graft - patent. Distal graft - patent. Distal anastomosis - patent. Graft outflow - patent. Mild calcific plaque in the inflow, proximal, mid and outflow segments. Graft 2: left fem-tibial graft Graft inflow - patent. Proximal anastomosis - patent. Proximal graft - patent. Mid graft - patent. Distal graft - patent. Distal anastomosis - patent. Graft outflow - patent. Mild calcific plaque in the inflow and outflow segments. [facility] 36on 01-08-2025 36 Lidia Singh was scheduled for a Lower Extremity Arterial Duplex graft bilateral with RIMMA on 01/20/25. I tried to get an [place] Authorization but they won't authorize it. His surgery was 01/02/2024. They said it is limited to 4 month intervals within the first year after revascularization then annually after the first year. His last test was on 07/22/2024. Do you want a peer to peer setup with Krystin or wait till next yr for his test? Normal [facility] CT CHEST WO IVCONon 12-31-[address] CHEST WO IVCON * * *Final Report* * * DATE OF EXAM: Dec 30 2024 3:56PM [facility] 0541 - CT CHEST WO IVCON / PROCEDURE REASON: Right upper lobe pulmonary nodule * * * * Physician Interpretation * * * * EXAMINATION: CHEST CT WITHOUT CONTRAST CLINICAL HISTORY: Former smoker with 50 pack-year smoking history, prostate cancer status post prostatectomy, melanoma. Follow up indeterminate pulmonary nodule. Technique: Spiral CT acquisition of the chest from the thoracic inlet to the upper abdomen without contrast. MQ: [id number] CT Radiation dose: Integrated Dose-length product (DLP) for this visit = 192 mGy*cm CT Dose Reduction Employed: Automated exposure control(AEC) and iterative recon Comparison: CT chest 07/26/2024, 05/02/2024. RESULT: Limitations: None. Lines, tubes, and devices: None. Lung parenchyma and airways: The central airways are patent. Multiple stable bilateral pulmonary nodules, for example: A 1.6 x 1.1 cm irregular nodule in the right upper lobe (6:38), multifocal subcentimeter groundglass nodules in both lungs such as a 7 mm right lower lobe (6:76), 6 mm left upper lobe (6:66), and 5 mm right upper lobe (6:50). No new or enlarging pulmonary nodules. No focal consolidation. Mild centrilobular emphysema with mild bronchial wall thickening. Pleural space: No pleural effusion. No pleural thickening. Lower neck, lymph nodes, and mediastinum: The imaged thyroid gland is normal. No lymphadenopathy in the supraclavicular, axillary, mediastinal, or hilar regions. Esophagus is nondilated. Heart, pericardium, and thoracic vessels: The thoracic aorta and main pulmonary artery are normal in caliber. The cardiac chambers are normal in size. Severe multivessel coronary artery atherosclerotic calcifications are noted, although the study is not optimized for coronary assessment. No pericardial effusion or thickening. Aortic root calcifications. Bones and soft tissues: No destructive bone lesion. Thoracic spine degenerative changes. Chest wall is unremarkable. Upper abdomen: No acute abnormality in the imaged upper abdomen. Renal vascular calcifications versus bilateral nonobstructing calculi. Localizer images: No additional findings. IMPRESSION: Stable irregular nodule in the right upper lobe, which previously demonstrated increased FDG avidity on prior PET/CT and concerning for primary lung malignancy. Stable multifocal bilateral groundglass nodules which may represent indolent lesions along the benign end of adenocarcinoma spectrum, and continued attention on follow-up is suggested. No new or progressive intrathoracic lymphadenopathy. Plastics Bench Mechanic: HETAL Transcribe Date/Time: Dec 31 2024 3:09P Dictated by : ROSE HOWARD, This examination was interpreted and the report reviewed and electronically signed by: JASON LORD MD on Dec 31 2024 5:41PM EST [id number] Normal [facility] Stool Occult Blood iFOBon STOB Negative Normal [facility] Comment on above: Performed By: #### M 100.1873 #### [facility] [place], [address] Stool gastrointestinal hemog lobin detection by immunologic methodOrdered By: Eugenio Mata on 11-13-2024 Lower GI hemoglobin IA Ql (Stl) [facility] Absolute lymphocyte countOrd ered By: Eugenio Mata on 11-12-2024 Lymphocytes Auto (Unsp spec) [#/Vol] 2.44 10*3/uL 0.83-4.51 [facility] Absolute neutrophil countOrd ered By: Eugenio Mata on 11-12-2024 Neutrophils (Bld) [#/Vol] 3.7 10*3/uL 2.0-7.7 [facility] Anion gap in Serum or Plasma Ordered By: Eugenio Mata on 11-12-2024 Anion gap [Moles/Vol] 9 mmol/L - [facility] Automated lymphocyte count a s percentage of total leukocytesOrdered By: Eugenio Mata on 11-12-2024 Lymphocytes/100 WBC Auto (Unsp spec) 33.2 % - [facility] BUN/creatinine ratioOrdered By: Eugenio Mata on 11-12-2024 Urea nitrogen/Creatinine [Mass ratio] 21.7 mg/mg High 10- [facility] Basophil percentageOrdered B y: Eugenio Mata on 11-12-2024 Basophils/100 WBC (Bld) 0.8 % 0-1 [facility] Bilirubin, totalOrdered By: Eugenio Mata on 11-12-2024 Bilirubin [Mass/Vol] 0.27 mg/dL 0.00-1.30 [facility] CBC W/Diff, Automatedon 10-18 Absolute Lymph 2.44 X10 3/uL Normal 0.83-4.51 [facility] Comment on above: Performed By: #### L 500.4050, L100.0100, L504.2610, [id number] #### [facility] [address] [place], [address] Absolute Neut 3.7 X10 3/uL Normal 2.0-7.7 [facility] Comment on above: Performed By: #### L 500.4050, L100.0100, L504.2610, [id number] #### [facility] [address] [place], [address] Basophils/100 WBC (Bld) 0.8 % Normal 0-1 [facility] Comment on above: Performed By: #### L 500.4050, L100.0100, L504.2610, [id number] #### [facility] [address] [place], [address] Eosinophils/100 WBC (Bld) 7.9 % High 0-5 [facility] Comment on above: Performed By: #### L 500.4050, L100.0100, L504.2610, [id number] #### [facility] [address] [place], [address] Erythrocyte distribution width (RBC) [Ratio] 14.5 % Normal 11.6-14.6 [facility] Comment on above: Performed By: #### L 500.4050, L100.0100, L504.2610, [id number] #### [facility] [address] [place], [address] Hematocrit (Bld) [Volume fraction] 33.2 % Low 40-54 [facility] Comment on above: Performed By: #### L 500.4050, L100.0100, L504.2610, [id number] #### [facility] [address] [place], [address] Hemoglobin (Bld) [Mass/Vol] 11.2 g/dL Low 13.0-16.5 [facility] Comment on above: Performed By: #### L 500.4050, L100.0100, L504.2610, [id number] #### [facility] [address] [place], [address] IG% 0.400 Normal 0.0-0.9 [facility] Comment on above: Result Comment: IG% - Immature Granulocytes (promyelocytes, myelocytes and metamyelocytes) > 1% indicates that a LEFT SHIFT is Present. Performed By: #### L 500.4050, L100.0100, L504.2610, [id number] #### [facility] [address] [place], [address] Lymphocytes/100 WBC (Bld) 33.2 % Normal 19-41 [facility] Comment on above: Performed By: #### L 500.4050, L100.0100, L504.2610, [id number] #### [facility] [address] [place], [address] MCH (RBC) [Entitic mass] 31.7 pg Normal 27.0-32.0 [facility] Comment on above: Performed By: #### L 500.4050, L100.0100, L504.2610, [id number] #### [facility] [address] [place], [address] MCHC (RBC) [Mass/Vol] 33.7 g/dL Normal 32-36 [facility] Comment on above: Performed By: #### L 500.4050, L100.0100, L504.2610, [id number] #### [facility] [address] [place], [address] MCV (RBC) [Entitic vol] 94.1 fL High 80-94 [facility] Comment on above: Performed By: #### L 500.4050, L100.0100, L504.2610, [id number] #### [facility] [address] [place], [address] Monocytes/100 WBC (Bld) 7.1 % Normal 0-10 [facility] Comment on above: Performed By: #### L 500.4050, L100.0100, L504.2610, [id number] #### [facility] [address] [place], [address] Neutrophils/100 WBC (Bld) 50.6 % Normal 47-70 [facility] Comment on above: Performed By: #### L 500.4050, L100.0100, L504.2610, [id number] #### [facility] [address] [place], [address] Nucleated RBC (Bld) [#/Vol] 0 10*3/uL Normal 0-5 [facility] Comment on above: Performed By: #### L 500.4050, L100.0100, L504.2610, [id number] #### [facility] [address] [place], [address] Platelet mean volume (Bld) [Entitic vol] 11.0 fL Normal 6.2-12.0 [facility] Comment on above: Performed By: #### L 500.4050, L100.0100, L504.2610, [id number] #### [facility] [address] [place], [address] Platelets (Bld) [#/Vol] 240 10*3/uL Normal 150-450 [facility] Comment on above: Performed By: #### L 500.4050, L100.0100, L504.2610, [id number] #### [facility] [address] [place], [address] RBC (Bld) [#/Vol] 3.53 10*6/uL Low 4.6-6.2 [facility] Comment on above: Performed By: #### L 500.4050, L100.0100, L504.2610, [id number] #### [facility] [address] [place], [address] RDW SD 49.7 fl High 35.1-43.9 [facility] Comment on above: Performed By: #### L 500.4050, L100.0100, L504.2610, [id number] #### [facility] [address] [place], [address] WBC (Bld) [#/Vol] 7.3 10*3/uL Normal 4.4-11.0 [facility] Comment on above: Performed By: #### L 500.4050, L100.0100, L504.2610, [id number] #### [facility] [address] [place], [address] Carbon dioxide, total [Moles /volume] in Central venous bloodOrdered By: Eugenio Mata on 11-12-2024 CO2 [Moles/Vol] 23.0 mmol/L 21.0-32.0 [facility] Chloride assayOrdered By: Anai Mata on 11-12-2024 Chloride [Moles/Vol] 104 mmol/L 98-108 [facility] Comprehensive Metabolic Prof ilon 11-12-2024 Albumin [Mass/Vol] 4.1 g/dL Normal 3.4-4.8 [facility] Comment on above: Performed By: #### L 500.4050, L100.0100, L504.2610, [id number] #### [facility] [address] [place], [address] Albumin/Globulin [Mass ratio] 1.6 {ratio} Normal 0.9-2.4 [facility] Comment on above: Performed By: #### L 500.4050, L100.0100, L504.2610, [id number] #### [facility] [address] [place], [address] ALK PHOS 86 U/L Normal 40-129 [facility] Comment on above: Performed By: #### L 500.4050, L100.0100, L504.2610, [id number] #### [facility] [address] [place], [address] ALT [Catalytic activity/Vol] 25 U/L Normal <=46 [facility] Comment on above: Performed By: #### L 500.4050, L100.0100, L504.2610, [id number] #### [facility] [address] [place], [address] AST [Catalytic activity/Vol] 19 U/L Normal <=37 [facility] Comment on above: Performed By: #### L 500.4050, L100.0100, L504.2610, [id number] #### [facility] [address] [place], [address] Bilirubin [Mass/Vol] 0.27 mg/dL Normal 0.00-1.30 [facility] Comment on above: Performed By: #### L 500.4050, L100.0100, L504.2610, [id number] #### [facility] [address] [place], [address] BUN/CRE 21.7 RATIO High 10-20 [facility] Comment on above: Performed By: #### L 500.4050, L100.0100, L504.2610, [id number] #### [facility] [address] [place], [address] Calcium [Mass/Vol] 9.3 mg/dL Normal 7.6-11.0 [facility] Comment on above: Performed By: #### L 500.4050, L100.0100, L504.2610, [id number] #### [facility] [address] [place], [address] Chloride [Moles/Vol] 104 mmol/L Normal 98-108 [facility] Comment on above: Performed By: #### L 500.4050, L100.0100, L504.2610, L501.9940 #### [facility] [address] [place], [address] CO2 [Moles/Vol] 23.0 mmol/L Normal 21.0-32.0 [facility] Comment on above: Performed By: #### L 500.4050, L100.0100, L504.2610, L501.9940 #### [facility] [address] [place], [address] Creatinine [Mass/Vol] 1.03 mg/dL Normal 0.70-1.20 [facility] Comment on above: Performed By: #### L 500.4050, L100.0100, L504.2610, [id number] #### [facility] [address] [place], [address] ECRCL 51.54 ml/min Normal 50-250 [facility] Comment on above: Performed By: #### L 500.4050, L100.0100, L504.2610, [id number] #### [facility] [address] [place], [address] GAP 9 Normal 5-15 [facility] Comment on above: Performed By: #### L 500.4050, L100.0100, L504.2610, [id number] #### [facility] [address] [place], [address] GFR/1.73 sq M.predicted among non-blacks MDRD (S/P/Bld) [Vol rate/Area] 78 mL/min/{1.73_m2} Normal >60 [facility] Comment on above: Result Comment: mL/m in/1.73m2 CKD-EPI Creatinine Equation (2020) Performed By: #### L 500.4050, L100.0100, L504.2610, [id number] #### [facility] [address] [place], [address] Globulin (S) [Mass/Vol] 2.5 g/dL Normal 2.2-4.2 [facility] Comment on above: Performed By: #### L 500.4050, L100.0100, L504.2610, [id number] #### [facility] [address] [place], [address] Glucose [Mass/Vol] 93 mg/dL Normal 70-99 [facility] Comment on above: Performed By: #### L 500.4050, L100.0100, L504.2610, L501.9940 #### [facility] [address] [place], [address] Potassium [Moles/Vol] 4.3 mmol/L Normal 3.3-5.1 [facility] Comment on above: Performed By: #### L 500.4050, L100.0100, L504.2610, [id number] #### [facility] [address] [place], [address] Sodium [Moles/Vol] 137 mmol/L Normal 133-145 [facility] Comment on above: Performed By: #### L 500.4050, L100.0100, L504.2610, L501.9940 #### [facility] [address] [place], [address] T PROT 6.6 g/dL Normal 5.9-8.4 [facility] Comment on above: Performed By: #### L 500.4050, L100.0100, L504.2610, L501.9940 #### [facility] [address] [place], [address] Urea nitrogen [Mass/Vol] 22 mg/dL High 4-19 [facility] Comment on above: Performed By: #### L 500.4050, L100.0100, L504.2610, L501.9940 #### [facility] [address] [place], [address] Eosinophil percentageOrdered By: Eugenio Mata on 11-12-2024 Eosinophils/100 WBC (Bld) 7.9 % High 0-5 [facility] Erythrocyte distribution wid th ratioOrdered By: Eugenio Mata on 11-12-2024 Erythrocyte distribution width (RBC) [Ratio] 14.5 % 11.6-14.6 [facility] Erythrocyte distribution wid th standard deviationOrdered By: Eugenio Mata on 11-12-2024 Erythrocyte distribution width (RBC) [Ratio] 49.7 fl High 35.1-43.9 [facility] Glomerular filtration rate ( GFR) estimation/1.73 sq m using serum, plasma, or whole bOrdered By: Eugenio Mata on 11-12-2024 GFR/1.73 sq M.predicted among non-blacks MDRD (S/P/Bld) [Vol rate/Area] 78 mL/min/{1.73_m2} >60 [facility] Comment on above: mL/min/1.73m2 CKD-EP I Creatinine Equation (2020) Hematocrit Auto (Bld) [Volum e fraction]Ordered By: Eugenio Mata on 11-12-2024 Hematocrit (Bld) [Volume fraction] 33.2 % Low 40-54 [facility] Hemoglobin measurementOrdere d By: Eugenio Mata on 11-12-2024 Hemoglobin (Bld) [Mass/Vol] 11.2 g/dL Low 13.0-16.5 [facility] Immature granulocytes/100 WB C Auto (Bld)Ordered By: Eugenio Mata on 11-12-2024 Immature granulocytes/100 WBC (Bld) 0.400 % 0.0-0.9 [facility] Comment on above: IG% - Immature Granu locytes (promyelocytes, myelocytes and metamyelocytes) > 1% indicates that a LEFT SHIFT is Present. LDHon 11-12-2024 LDH 197 U/L Normal 87-241 [facility] Comment on above: Order Comment: 1 Performed By: #### L 500.4050, L100.0100, L504.2610, L501.9940 #### [facility] [address] [place], [address] Laboratory - Chemistry and C hemistry - challengeOrdered By: Eugenio Mata on 11-12-2024 AST [Catalytic activity/Vol] 19 U/L <38 [facility] Lactate dehydrogenase (LDH) measurementOrdered By: Eugenio Mata on 11-12-2024 LDH [Catalytic activity/Vol] 197 U/L 87-241 [facility] MCV (mean corpuscular volume ) determinationOrdered By: Eugenio Mata on 11-12-2024 MCV (RBC) [Entitic vol] 94.1 fL High 80-94 [facility] Mean corpuscular hemoglobin (MCH) determinationOrdered By: Eugenio Mata on 11-12-2024 MCH (RBC) [Entitic mass] 31.7 pg 27.0-32.0 [facility] Mean corpuscular hemoglobin concentration (MCHC) determinationOrdered By: Eugenio Mata on 11-12-2024 MCHC (RBC) [Mass/Vol] 33.7 g/dL 32-36 [facility] Mean platelet volume determi nationOrdered By: Eugenio Mata on 11-12-2024 Platelet mean volume (Bld) [Entitic vol] 11.0 fL 6.2-12.0 [facility] Monocyte percentageOrdered B y: Eugenio Mata on 11-12-2024 Monocytes/100 WBC (Bld) 7.1 % 0-10 [facility] Neutrophil percentageOrdered By: Eugenio Mata on 11-12-2024 Neutrophils/100 WBC (Bld) 50.6 % 47-70 [facility] Nucleated red blood cell per centageOrdered By: Eugenio Mata on 11-12-2024 Nucleated RBC/100 WBC (Bld) [Ratio] 0 % 0-5 [facility] Oncology Visit Reporton 05-[address] [facility] [place] [address] OFFICE VISIT Date of Service: 11/12/24 1331 MR#: [id number] Acct: [id number] Name: LIDIA SINGH Rep #: [id number] : 1955 From: Eugenio Mata MD Age/Sex: 69/M [place] [facility] [place]: Signed HPI Subjective Date of Service 11/12/24 Chief Complaint F/u for Prostate cancer. History of Present Illness 69-year-old man was diagnosed with Melanoma L scapular area on . He had wide excision on 12/03/2015 at [facility] in [place]. He was diagnosed with prostate cancer clinically T1c left side in October 2020, PSA was 15 he had robotic assisted radical prostatectomy, bilateral lymph node dissection on 12/31/2020 1. 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 Pathologic staging pT3a pN0. Stage IIIB. Postop in January 2021, PSA was 0.09. Urologist moved from the area so he wanted to do follow-up here. He is on observation, comes for follow up. Feels well. 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 Arthritis Tobacco user Degeneration of lumbar intervertebral disc Chronic pain of right upper extremity Diverticulitis Degenerative joint disease of hand Benign essential hypertension Surgical History Hx of laminectomy Hx of tonsillectomy Family History Mother Cancer Father Cancer Diabetes Sister Heart disease Myocardial infarction Brother Heart disease Myocardial infarction Cancer Social History household members: family housing: house Smoking Status: Former smoker quit date: 02/17/23 ROS Constitutional Constitutional: Reports systems reviewed and no addt'l complaints, except as documented Eyes Eyes: Reports systems reviewed and no addt'l complaints, except as documented ENT HEENT: Reports systems reviewed and no addt'l complaints, except as documented Cardiovascular Cardiovascular: Reports systems reviewed and no addt'l complaints, except as documented Respiratory/Chest Respiratory/Chest: Reports systems reviewed and no addt'l complaints, except as documented Gastrointestinal Gastrointestinal: Reports systems reviewed and no addt'l complaints, except as documented Genitourinary Genitourinary: Reports systems reviewed and no addt'l complaints, except as documented Musculoskeletal Musculoskeletal: Reports systems reviewed and no addt'l complaints, except as documented Integumentary Integumentary: Reports systems reviewed and no addt'l complaints, except as documented Neurologic Neurologic: Reports systems reviewed and no addt'l complaints, except as documented Psychiatric Psychiatric: Reports systems reviewed and no addt'l complaints, except as documented Endocrine Endocrinology: Reports systems reviewed and no addt'l complaints, except as documented Hematologic/Lymphatic Hematologic/Lymphatic: Reports systems reviewed and no addt'l complaints, except as documented Allergic/Immunologic Allergic/Immunologic: Reports systems reviewed and no addt'l complaints, except as documented Intake Vital Signs 02/02/24 14:27 09/26/24 09:11 11/12/24 13:36 11/12/24 13:38 Height 5 ft 2 in 5 ft 2 in 5 ft 2 in 5 ft 2 in Weight: 62.624 kg BMI 25.2 BP 128/60 H Blood Pressure Location Lt brachial Position Sitting Respiration 18 Pulse 50 L Pulse Source Monitor Temp 97.9 F Temperature Source Temporal Artery Pulse Oximetry (%) 97 Oxygen Delivery Method room air Intake Is patient in pain?: No Allergies pregabalin (From Lyrica) Allergy (Verified 11/12/24 13:31) NEEDS FOLLOW-UP Medications ???Medication ???Instructions ???Recorded ???Confirmed ???Type aspirin 81 mg chewable tablet 81 mg PO QHS heart health 03/19/13 11/12/24 History atorvastatin 40 mg tablet 40 mg PO QHS 04/12/20 11/12/24 His tory latanoprost 0.005 % eye drops 1 drp EACH EYE QHS 04/12/20 History losartan 25 mg tablet 25 mg PO DAILY BP 08/05/20 5 History acetaminophen 500 mg tablet 500 mg PO Q6H PRN 10/12/22 5 History (Tylenol Extra Strength) nitroglycerin 0.4 mg sublingual 0.4 (more content not included)... Normal [facility] PSA,Total- Diagnosticon 10-18 PSA, DIAGNOSTIC < 0.02 Normal 0.00-4.00 [facility] Comment on above: Result Comment: This test was performed using the [employer] tPSA method. Measured values of a patient??sample can vary depending on the testing procedure used. PSA values determined on patient samples by different testing procedures cannot be used interchangeably. If there is a change in PSA assays while monitoring therapy, sequential testing should be performed to confirm baseline values. Performed By: #### L 500.4050, L100.0100, L504.2610, L501.9940 ####[facility] [id number] [place], [place], [address] Platelet countOrdered By: Anai Mata on 11-12-2024 Platelets (Bld) [#/Vol] 240 10*3/uL 150-450 [facility] Potassium measurement (mass/ volume)Ordered By: Eugenio Mata on 11-12-2024 Potassium (Unsp spec) [Mass/Vol] 4.3 mmol/L 3.3-5.1 [facility] RBC Auto (Bld) [#/Vol]Ordere d By: Eugenio Mata on 11-12-2024 RBC (Bld) [#/Vol] 3.53 10*6/uL Low 4.6-6.2 [facility] Serum creatinine measurement (mass/volume)Ordered By: Eugenio Mata on 11-12-2024 Creatinine [Mass/Vol] 1.03 mg/dL 0.70-1.20 [facility] Serum globulin measurementOr dered By: Eugenio Mata on 11-12-2024 Globulin (S) [Mass/Vol] 2.5 g/dL 2.2-4.2 [facility] Serum glucose measurement (m ass/volume)Ordered By: Eugenio Mata on 11-12-2024 Glucose [Mass/Vol] 93 mg/dL 70-99 [facility] Serum or plasma alanine holder otransferase (ALT) measurementOrdered By: Eugenio Mata on 11-12-2024 ALT [Catalytic activity/Vol] 25 U/L <47 [facility] Serum or plasma albumin ariela urement (mass/volume)Ordered By: Eugenio Mata on 11-12-2024 Albumin [Mass/Vol] 4.1 g/dL 3.4-4.8 [facility] Serum or plasma albumin/glob ulin mass ratioOrdered By: Eugenio Mata on 11-12-2024 Albumin/Globulin [Mass ratio] 1.6 {ratio} 0.9-2.4 [facility] Serum or plasma alkaline lissa sphatase measurementOrdered By: Eugenio Mata on 11-12-2024 ALP [Catalytic activity/Vol] 86 U/L 40-129 [facility] Serum or plasma calcium ariela urement (mass/volume)Ordered By: Eugenio Mata on 11-12-2024 Calcium [Mass/Vol] 9.3 mg/dL 7.6-11.0 [facility] Serum or plasma urea nitroge n measurement (mass/volume)Ordered By: Eugenio Mata on 11-12-2024 Urea nitrogen [Mass/Vol] 22 mg/dL High 4-19 [facility] Sodium levelOrdered By: Arturo Mata on 11-12-2024 Sodium [Moles/Vol] 137 mmol/L 133-145 [facility] Total proteinOrdered By: Jeremy Mata on 11-12-2024 Protein [Mass/Vol] 6.6 g/dL 5.9-8.4 [facility] White blood cell (WBC) count Ordered By: Eugenio Mata on 11-12-2024 WBC (Bld) [#/Vol] 7.3 10*3/uL 4.4-11.0 [facility] Emergency Department Summary on 09-26-2024 Emergency Department Summary [facility] Medical Records Department [address] [place] [address] Emergency Department Summary 09/26/24 MR#: [id number] Acct: [id number] Name: LIDIA SINGH Rep #: [id number] : 1955 69 From: Andre Ferrari DO PCP: DOT Keyes Status:DEP ER Location: ED HPI History of Present Illness Chief Complaint: Nosebleed Informant: patient and spouse/S.O. Narrative Narrative: 69-year-old male presenting to the emergency room with nosebleed of 1 hour duration. Patient states he was at work with nosebleed to stop. He states he was spitting up blood and seem to be coming out of both nares right greater than left. He states that before 2009 he had had a nosebleed that required packing. He takes a daily aspirin but no other blood thinners. Over the past couple weeks he has been using a "sinusex" nose spray. Currently however he states that he is not having any bleeding. 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 Arthritis Tobacco user Degeneration of lumbar intervertebral disc Chronic pain of right upper extremity Diverticulitis Degenerative joint disease of hand Benign essential hypertension Home Medications ???Medication ???Instructions ???Recorded ???Last Taken ???Type aspirin 81 mg chewable tablet 81 mg PO QHS heart health 03/19/13 08/05/20 History atorvastatin 40 mg tablet 40 mg PO QHS 04/12/20 08/05/20 His tory latanoprost 0.005 % eye drops 1 drp EACH EYE QHS 04/12/20 History losartan 25 mg tablet 25 mg PO DAILY BP 08/05/20 1 History acetaminophen 500 mg tablet 500 mg PO Q6H PRN 10/12/22 Unknown History (Tylenol Extra Strength) nitroglycerin 0.4 mg sublingual 0.4 mg sublingual ONCE 10/12/22 Un known History tablet vitamin B complex (B 1 tab PO DAILY 10/12/22 Unknown Hi story Complex-Vitamin B12 tablet) omeprazole 40 mg capsule,delayed 40 mg PO BID 10/20/22 Unknown Hist ory release fluticasone fur. 100 mcg-umeclid 1 ea inhalation QDAY 02/02/24 Unkn own History 62.5 mcg-vilant 25 mcg inhalat.powder (Trelegy Ellipta) vitamin B comp and C no.3 15 mg-10 1 cap PO DAILY 02/02/24 Unknown History mg-50 mg-5 mg-300 mg capsule (B Complex Plus Vitamin C) Allergy/AdvReac Type Severity Reaction Status Date / Time pregabalin (From Lyrica) Allergy NEEDS Verified 09/26/24 09:11 FOLLOW-UP Family History Mother Cancer Father Cancer Diabetes Sister Heart disease Myocardial infarction Brother Heart disease Myocardial infarction Cancer Surgical History Hx of laminectomy Hx of tonsillectomy Social History (Updated 09/26/24 @ 09:46 by Krystin Mcconnell) household members: family housing: house Smoking Status: Former smoker quit date: 02/17/23 ROS ROS ED Constitutional Constitutional ED: Denies chills, fever(s) or weight loss Eyes Eyes: Denies change in vision or diplopia ENT ENT ED: Reports other Details: Nasal congestion epistaxis see HPI ; Denies ear pain, rhinorrhea or sore throat Cardiovascular Cardiovascular: Denies chest pain, orthopnea, palpitations or racing heartbeat Respiratory/Chest Respiratory/Chest: Denies cough, dyspnea or orthopnea Gastrointestinal Gastrointestinal: Denies abdominal pain, diarrhea, nausea or vomiting Genitourinary Genitourinary ED: Denies dysuria, hematuria or urinary frequency Musculoskeletal Musculoskeletal: Denies arthralgias or myalgias Integumentary Denies abscess or rash Neurologic Neurologic: Denies headache(s) or weakness Psychiatric Psychiatric: Denies anxiety, depression, suicidal ideation or suicidal thoughts Endocrine Endocrinology: Denies polydipsia, polyphagia or polyuria Allergic/Immunologic Allergic/Immunologic ED: Denies mouth swelling, tongue swelling or urticaria EXAM Physical Exam Const Vital Signs: 09/26/24 09:11 09/26/24 10:16 Temperature 97.9 F 97.9 F Temperature Source Temporal Pulse Rate 57 L 60 Respiratory Rate 16 16 Blood Pressure 142/59 H 142/59 H Blood Pressure Mean 86 86 Pulse Ox 98 98 Oxygen Delivery Method Room Air Positive well nourished and well developed General Appearance ED: well developed HEENT Reports normocephalic, head/scalp atraumatic and moist mucous membranes HEENT Narrative: Large clot was expressed from the right (more content not included)... Normal [facility] 08-27-2024 [facility] ([id number]) LIDIA SINGH ([id number]) 1955 M Date Time Provider Department 08/27/24 JENAE JANG [id number] During your visit today, we recorded the following information about you: Allergies As of Date: 08/27/2024 Noted Allergy Reaction NABUMETONE 06/01/2005 8 - GI Upset Date Reviewed: 05/03/2024 Reviewed by: Jojo Lewis, CT - Fully Assessed Reason for Visit: Appointment [[id number]] Prescriptions as of 08/30/2024 - ferrous sulfate 325 mg (65 mg iron) EC tablet TAKE 1 TABLET BY MOUTH EVERY MONDAY, MONDAY AND MONDAY - fluticasone (FLONASE) 50 mcg/actuation nasal spray INSTILL 1 SPRAY INTO NOSTRIL EVERY MORNING - TRELEGY ELLIPTA 100-62.5-25 mcg inhalation powder Inhale 1 Puff as instructed once daily. - omeprazole (PRILOSEC) 20 mg capsule Take 20 mg by mouth once daily. - vitamin b complex capsule Take 1 capsule by mouth every afternoon. - Vitamin J14-Qbfti Acid 0.5-1 mg tab Take by mouth. - losartan (COZAAR) 25 mg tablet Take 1 (ONE) tab(s) Oral EVERY Day - latanoprost (XALATAN) 0.005 % ophthalmic solution instill 1 (ONE) DROP IN BOTH EYES NIGHTLY - meloxicam (MOBIC) 15 mg tablet Take 1 tablet by mouth once daily. - atorvastatin (LIPITOR) 40 mg tablet Take 40 mg by mouth once daily. - aspirin, enteric coated (ECOTRIN LOW STRENGTH) 81 mg EC tablet Take 1 tablet by mouth once daily. Problem List As Of Date 08/27/2024 Noted Resolved TOBACCO USE DISORDER [F17.200] 04/14/2005 Benign neoplasm of colon [D12.6] 05/27/2005 02/04/2017 HYPERLIPIDEMIA NEC/NOS [E78.5] 07/21/2005 IMPAIRED FASTING GLUCOSE [R73.01] 07/21/2005 Other tenosynovitis of hand and wrist [M65.849,*11/07/2005 02/04/2017 ABDOMINAL PAIN RLQ [R10.31] 12/14/2006 12/17/2008 VENOUS THROMBOSIS NOS [I74.9] 09/19/2007 12/17/2008 PERIPH VASCULAR DIS NOS [I73.9] 09/19/2007 GLAUCOMA NOS [H40.9] 03/21/2008 Sciatica [M54.30] 07/17/2009 Disc Displacement [AIQ1952] 07/17/2009 BPH loc w urin obs/LUTS [N40.1] 04/05/2010 Mixed hyperlipidemia [E78.2] Hypertrophy of prostate without urinary obstruc* Carpal tunnel syndrome [G56.00] 06/01/2010 02/04/2017 DDD (degenerative disc disease), lumbar [M51.36*09/19/2011 Lumbar spondylosis [M47.816] 09/19/2011 Postlaminectomy syndrome [M96.1] 09/23/2011 longterm use of drug [Z79.899] 02/24/2012 Labral tear of long head of biceps tendon [S46.*05/16/2012 Rupture of long head biceps tendon [S46.119A] 05/16/2012 Malignant melanoma of skin of trunk, except scr*11/25/2015 02/04/2017 Melanoma of back (HCC) [C43.59] 11/26/2015 Atypical nevi [D22.9] 02/04/2016 02/04/2017 Multiple benign nevi [D22.9] 02/04/2016 02/04/2017 Lentigines [L81.4] 02/04/2016 02/04/2017 Seborrheic keratosis [L82.1] 02/04/2016 02/04/2017 Chronic right shoulder pain [M25.511, G89.29] 02/04/2017 PAD (peripheral artery disease) (HCC) [I73.9] 02/04/2017 Essential hypertension, benign [I10] 10/02/2020 History of colonic diverticulitis [Z87.19] 10/02/2020 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] 10/02/2020 Encounter Status:Closed by JENAE GIFFORD on 08/27/24 Normal [facility] CT CHEST WO IVCONon 07-26-19 CT CHEST WO IVCON * * *Final Report* * * DATE OF EXAM: Jul 26 2024 3:47PM [facility] 0541 - CT CHEST WO IVCON / PROCEDURE REASON: Right upper lobe pulmonary nodule * * * * Physician Interpretation * * * * EXAMINATION: CHEST CT WITHOUT CONTRAST CLINICAL HISTORY: 69-year-old male with 50 pack year smoking history with pulmonary nodules for follow-up. History of prostate cancer and melanoma. Technique: Spiral CT acquisition of the chest from the thoracic inlet to the upper abdomen without contrast. MQ: CTCWO_6 CT Radiation dose: Integrated Dose-length product (DLP) for this visit = 198 mGy*cm CT Dose Reduction Employed: Automated exposure control(AEC) and iterative recon Comparison: Chest CT scan(s) dated 05/03/2024 RESULT: Limitations: None. Lines, tubes, and devices: None Lung parenchyma, pleural space and airways: There is a 6.2 x 4.2 mm peribronchial irregular nodule in the RIGHT upper lobe (image 37), stable since 05/03/2024. It appeared more discrete and hypermetabolic on the PET/CT dated 01/09/2024, measuring approximately 7.6 x 5.5 mm. Redemonstration of multifocal subcentimeter size groundglass nodules in both lungs, RIGHT worse on LEFT. These are grossly stable since the prior exam and likely represents lesions along the adenocarcinoma spectrum. For reference, 9.1 mm groundglass nodule in the superior segment of the RIGHT lower lobe (image 77), 6 mm groundglass nodule in the anterior RIGHT upper lobe (image 44) and 5.5 mm groundglass nodule in the lateral RIGHT lower lobe (image 143).. A 10 mm part solid nodule with 3 mm solid component is identified in the LEFT upper lobe (image 62), unchanged. Small solid nodular opacities are present measuring less than 5 mm. For reference, image 61 in the lateral RIGHT upper lobe, image 20 in the RIGHT lung apex and image 99 in the superior lingula. No new or enlarging pulmonary nodules are noted. There are minimal emphysematous changes with diffuse bronchial wall thickening. Lungs are hyperinflated. Lungs are clear of focal consolidation. There is no pleural effusion. The trachea and central airways appear patent, devoid of endobronchial lesion. Lower neck, lymph nodes, and mediastinum: No obvious abnormality in the imaged thyroid gland. There are stable subcentimeter sized mediastinal and hilar lymph nodes with no new region of lymphadenopathy in the chest. For reference, 8.5 mm RIGHT hilar (image 144). On the exam. Heart, pericardium, and thoracic vessels: The cardiac chambers are normal in size. There is no pericardial effusion or thickening. The main pulmonary artery is normal in calibre. The thoracic aorta is normal in calibre. The arch branching pattern is normal. Severe coronary artery calcifications are noted, although the study is not optimized for coronary assessment. There are atherosclerotic calcifications in the thoracic aorta and aortic root. Bones and soft tissues: Chest wall soft tissues are unremarkable. Stable nonexpansile lucent lesion sclerotic margins involving a RIGHT lateral rib (image 126). Degenerative changes are present in the thoracic spine. Upper abdomen: No acute abnormality identified in the imaged upper abdomen. There is mild diffuse thickening of the LEFT adrenal. There are atherosclerotic calcifications present within the upper abdominal aorta and branch vessels. [employer] (topogram) images: No additional findings. IMPRESSION: 1. Stable 6.2 x 4.2 mm peribronchial irregular nodule in the RIGHT upper lobe. It appeared more discrete and hypermetabolic on the PET/CT dated 01/09/2024, measuring approximately 7.6 x 5.5 mm. 2. Stable multifocal subcentimeter size groundglass nodules in both lungs, RIGHT worse on LEFT. These are grossly stable since the prior exam and likely represents lesions along the adenocarcinoma spectrum. 3. Stable 10 mm part solid nodule with 3 mm solid component in the LEFT upper lobe. Few stable small solid nodules measuring less than 5 mm. 4. Stable subcentimeter sized mediastinal and hilar lymph nodes with no new region of lymphadenopathy in the chest. Plastics Bench Mechanic: HETAL Transcribe Date/Time: Jul 26 2024 3:50P Dictated by : AGNES LOJA MD This examination was interpreted and the report reviewed and electronically signed by: AGNES LOJA MD on Jul 26 2024 4:22PM EST [id number] Normal [facility] CT Chest WO contraston 07-26 IMPRESSION: 1. Stable 6.2 x 4.2 mm peribronchial irregular nodule in the RIGHT upper lobe. It appeared more discrete and hypermetabolic on the PET/CT dated 01/09/2024, measuring approximately 7.6 x 5.5 mm. 2. Stable multifocal subcentimeter size groundglass nodules in both lungs, RIGHT worse on LEFT. These are grossly stable since the prior exam and likely represents lesions along the adenocarcinoma spectrum. 3. Stable 10 mm part solid nodule with 3 mm solid component in the LEFT upper lobe. Few stable small solid nodules measuring less than 5 mm. 4. Stable subcentimeter sized mediastinal and hilar lymph nodes with no new region of lymphadenopathy in the chest. Plastics Bench Mechanic: HETAL Transcribe Date/Time: Jul 26 2024 3:50P Dictated by : AGNES LOJA MD This examination was interpreted and the report reviewed and electronically signed by: AGNES LOJA MD on Jul 26 2024 4:22PM EST DIVISION OF RADIOLOGY * * *Final Report* * * DATE OF EXAM: Jul 26 2024 3:47PM [facility] 0541 - CT CHEST WO IVCON / PROCEDURE REASON: Right upper lobe pulmonary nodule * * * * Physician Interpretation * * * * EXAMINATION: CHEST CT WITHOUT CONTRAST CLINICAL HISTORY: 69-year-old male with 50 pack year smoking history with pulmonary nodules for follow-up. History of prostate cancer and melanoma. Technique: Spiral CT acquisition of the chest from the thoracic inlet to the upper abdomen without contrast. MQ: CTCWO_6 CT Radiation dose: Integrated Dose-length product (DLP) for this visit = 198 mGy*cm CT Dose Reduction Employed: Automated exposure control(AEC) and iterative recon Comparison: Chest CT scan(s) dated 05/03/2024 RESULT: Limitations: None. Lines, tubes, and devices: None Lung parenchyma, pleural space and airways: There is a 6.2 x 4.2 mm peribronchial irregular nodule in the RIGHT upper lobe (image 37), stable since 05/03/2024. It appeared more discrete and hypermetabolic on the PET/CT dated 01/09/2024, measuring approximately 7.6 x 5.5 mm. Redemonstration of multifocal subcentimeter size groundglass nodules in both lungs, RIGHT worse on LEFT. These are grossly stable since the prior exam and likely represents lesions along the adenocarcinoma spectrum. For reference, 9.1 mm groundglass nodule in the superior segment of the RIGHT lower lobe (image 77), 6 mm groundglass nodule in the anterior RIGHT upper lobe (image 44) and 5.5 mm groundglass nodule in the lateral RIGHT lower lobe (image 143).. A 10 mm part solid nodule with 3 mm solid component is identified in the LEFT upper lobe (image 62), unchanged. Small solid nodular opacities are present measuring less than 5 mm. For reference, image 61 in the lateral RIGHT upper lobe, image 20 in the RIGHT lung apex and image 99 in the superior lingula. No new or enlarging pulmonary nodules are noted. There are minimal emphysematous changes with diffuse bronchial wall thickening. Lungs are hyperinflated. Lungs are clear of focal consolidation. There is no pleural effusion. The trachea and central airways appear patent, devoid of endobronchial lesion. Lower neck, lymph nodes, and mediastinum: No obvious abnormality in the imaged thyroid gland. There are stable subcentimeter sized mediastinal and hilar lymph nodes with no new region of lymphadenopathy in the chest. For reference, 8.5 mm RIGHT hilar (image 144). On the exam. Heart, pericardium, and thoracic vessels: The cardiac chambers are normal in size. There is no pericardial effusion or thickening. The main pulmonary artery is normal in calibre. The thoracic aorta is normal in calibre. The arch branching pattern is normal. Severe coronary artery calcifications are noted, although the study is not optimized for coronary assessment. There are atherosclerotic calcifications in the thoracic aorta and aortic root. Bones and soft tissues: Chest wall soft tissues are unremarkable. Stable nonexpansile lucent lesion sclerotic margins involving a RIGHT lateral rib (image 126). Degenerative changes are present in the thoracic spine. Upper abdomen: No acute abnormality identified in the imaged upper abdomen. There is mild diffuse thickening of the LEFT adrenal. There are atherosclerotic calcifications present within the upper abdominal aorta and branch vessels. Hops Farmworker (topogram) images: No additional findings. DIVISION OF RADIOLOGY Provider, [facility] - 07/26/2024 * * *Final Report* * * DATE OF EXAM: Jul 26 2024 3:47PM [facility] 0541 - CT CHEST WO IVCON / PROCEDURE REASON: Right upper lobe pulmonary nodule * * * * Physician Interpretation * * * * EXAMINATION: CHEST CT WITHOUT CONTRAST CLINICAL HISTORY: 69-year-old male with 50 pack year smoking history with pulmonary nodules for follow-up. History of prostate cancer and melanoma. Technique: Spiral CT acquisition of the chest from the thoracic inlet to the upper abdomen without contrast. MQ: CTCWO_6 CT Radiation dose: Integrated Dose-length product (DLP) for this visit = 198 mGy*cm CT Dose Reduction Employed: Automated exposure control(AEC) and iterative recon Comparison: Chest CT scan(s) dated 05/03/2024 RESULT: Limitations: None. Lines, tubes, and devices: None Lung parenchyma, pleural space and airways: There is a 6.2 x 4.2 mm peribronchial irregular nodule in the RIGHT upper lobe (image 37), stable since 05/03/2024. It appeared more discrete and hypermetabolic on the PET/CT dated 01/09/2024, measuring approximately 7.6 x 5.5 mm. Redemonstration of multifocal subcentimeter size groundglass nodules in both lungs, RIGHT worse on LEFT. These are grossly stable since the prior exam and likely represents lesions along the adenocarcinoma spectrum. For reference, 9.1 mm groundglass nodule in the superior segment of the RIGHT lower lobe (image 77), 6 mm groundglass nodule in the anterior RIGHT upper lobe (image 44) and 5.5 mm groundglass nodule in the lateral RIGHT lower lobe (image 143).. A 10 mm part solid nodule with 3 mm solid component is identified in the LEFT upper lobe (image 62), unchanged. Small solid nodular opacities are present measuring less than 5 mm. For reference, image 61 in the lateral RIGHT upper lobe, image 20 in the RIGHT lung apex and image 99 in the superior lingula. No new or enlarging pulmonary nodules are noted. There are minimal emphysematous changes with diffuse bronchial wall thickening. Lungs are hyperinflated. Lungs are clear of focal consolidation. There is no pleural effusion. The trachea and central airways appear patent, devoid of endobronchial lesion. Lower neck, lymph nodes, and mediastinum: No obvious abnormality in the imaged thyroid gland. There are stable subcentimeter sized mediastinal and hilar lymph nodes with no new region of lymphadenopathy in the chest. For reference, 8.5 mm RIGHT hilar (image 144). On the exam. Heart, pericardium, and thoracic vessels: The cardiac chambers are normal in size. There is no pericardial effusion or thickening. The main pulmonary artery is normal in calibre. The thoracic aorta is normal in calibre. The arch branching pattern is normal. Severe coronary artery calcifications are noted, although the study is not optimized for coronary assessment. There are atherosclerotic calcifications in the thoracic aorta and aortic root. Bones and soft tissues: Chest wall soft tissues are unremarkable. Stable nonexpansile lucent lesion sclerotic margins involving a RIGHT lateral rib (image 126). Degenerative changes are present in the thoracic spine. Upper abdomen: No acute abnormality identified in the imaged upper abdomen. There is mild diffuse thickening of the LEFT adrenal. There are atherosclerotic calcifications present within the upper abdominal aorta and branch vessels. Hops Farmworker (topogram) images: No additional findings. IMPRESSION IMPRESSION: 1. Stable 6.2 x 4.2 mm peribronchial irregular nodule in the RIGHT upper lobe. It appeared more discrete and hypermetabolic on the PET/CT dated 01/09/2024, measuring approximately 7.6 x 5.5 mm. 2. Stable multifocal subcentimeter size groundglass nodules in both lungs, RIGHT worse on LEFT. These are grossly stable since the prior exam and likely represents lesions along the adenocarcinoma spectrum. 3. Stable 10 mm part solid nodule with 3 mm solid component in the LEFT upper lobe. Few stable small solid nodules measuring less than 5 mm. 4. Stable subcentimeter sized mediastinal and hilar lymph nodes with no new region of lymphadenopathy in the chest. Plastics Bench Mechanic: HETAL Transcribe Date/Time: Jul 26 2024 3:50P Dictated by : AGNES LOJA MD This examination was interpreted and the report reviewed and electronically signed by: AGNES LOJA MD on Jul 26 2024 4:22PM EST [facility] Radiology Study observation (narrative) [facility] CT Chest WO contrastOrdered By: Ccf Provider on 07-26-2024 [facility] No Panel InformationOrdered By: Long Shah on 07-22-2024 Left RIMMA 1.03 [facility] Work Phone: Left arm BP 140 mmHg [facility] Work Phone: Left Dist Anastomosis EDV 0 cm/s [facility] Work Phone: Left Dist Anastomosis PSV 39.9 cm/s [facility] Work Phone: Left Dist Outflow EDV 0 cm/s [facility] Work Phone: Left Dist Outflow PSV 53.4 cm/s [facility] Work Phone: Left dorsalis pedis BP 144 mmHg [facility] Work Phone: Left Graft 1 Left femoral to tibi al artery bypass graft [facility] Work Phone: Left Inflow Artery EDV 0 cm/s [facility] Work Phone: Left Inflow Artery PSV 92 cm/s [facility] Work Phone: Left Mid Outflow EDV 0 cm/s [facility] Work Phone: Left Mid Outflow PSV 63.8 cm/s [facility] Work Phone: Left Outflow Vessel EDV 159.1 cm/s [facility] Work Phone: Left Outflow Vessel EDV 11.9 cm/s [facility] Work Phone: Left posterior tibial 147 mmHg [facility] Work Phone: Left Prox Anastomosis EDV 6.5 cm/s [facility] Work Phone: Left Prox Anastomosis PSV 49.9 cm/s [facility] Work Phone: Left Prox Outflow EDV 0 cm/s [facility] Work Phone: Left Prox Outflow PSV 53.4 cm/s [facility] Work Phone: Right RIMMA 1 [facility] Work Phone: Right arm BP 143 mmHg [facility] Work Phone: Right Dist Anastomosis EDV 2.6 cm/s [facility] Work Phone: Right Dist Anastomosis PSV 88.3 cm/s [facility] Work Phone: Right Dist Outflow EDV 0 cm/s [facility] Work Phone: Right Dist Outflow PSV 49.3 cm/s [facility] Work Phone: Right dorsalis pedis BP 143 mmHg [facility] [employer] Work Phone: Right Graft 1 Right femoral to tibial artery bypass graft [facility] [employer] Work Phone: Right Inflow Artery EDV 13.6 cm/s [facility] Work Phone: Right Inflow Artery PSV 195.5 cm/s [facility] Work Phone: Right Mid Outflow EDV 0 cm/s [facility] Work Phone: Right Mid Outflow PSV 74.5 cm/s [facility] Work Phone: Right Outflow Vessel EDV 15.8 cm/s [facility] Work Phone: Right Outflow Vessel PSV 88.3 cm/s [facility] Work Phone: Right posterior tibial 138 mmHg [facility] Work Phone: Right Prox Anastomosis EDV 0 cm/s [facility] Work Phone: Right Prox Anastomosis PSV 68.3 cm/s [facility] Work Phone: Right Prox Outflow EDV 0 cm/s [facility] Work Phone: Right Prox Outflow PSV 53.7 cm/s [facility] Work Phone: No Panel Informationon 07-22 Right side findings: Resting RIMMA is 1.00. This is within the normal range. Patent right femoral to tibial artery bypass graft. Left side findings: Resting RIMMA is 1.03. This is within the normal range. Patent left femoral to tibial artery bypass graft. RIMMA Right side findings: Normal resting RIMMA. Left side findings: Normal resting RIMMA. Comparison Study The exam was compared to the study performed on 01/18/2024. Right side findings: Resting RIMMA is 0.93. This is within the normal range. Left side findings: Resting RIMMA is 0.99. This is within the normal range. Unable to clearly identity left KARO stent due to highly calcific arterial saunders, , left KARO and EIA appear widely patent. Patent left fem-tibial BPG. Lower Artery Bypass Graft Graft 1: right fem-tibial graft Graft inflow - patent. Proximal anastomosis - patent. Proximal graft - patent. Mid graft - patent. Distal graft - patent. Distal anastomosis - patent. Graft outflow - patent. Moderate calcific plaque in the inflow, prox anastomosis and outflow segments. Graft 2: left fem-tibial graft Graft inflow - patent. Proximal anastomosis - patent. Proximal graft - patent. Mid graft - patent. Distal graft - patent. Distal anastomosis - patent. Graft outflow - patent. Moderate calcific plaque in the inflow, prox anastomosis and outflow segments. Turbulent flow noted in bilateral inflow arteries. Shuttler Details A jimenez scale, color Doppler imaging and spectral Doppler analysis ultrasound was performed. During the study longitudinal and transverse views were obtained. Pulsed wave doppler and pulsed volume recording (PVR) was performed. The exam was performed with the patient in the supine position. Overall the study quality was good. CV CPACS .Auto Diffon 07-03-2024 Basophil, Absolute 0.1 10 3/mcL Normal 0.0-0.2 [facility] Comment on above: Performed By: #### A DIFF, A1C, CBC, ANEU #### [id number] [place], [place] [address] Basophils/100 WBC (Bld) 1.0 % Normal 0.0-2.5 A [facility] Comment on above: Performed By: #### A DIFF, A1C, CBC, ANEU #### [id number] [place], [place] [address] Eosinophil, Absolute 0.6 10 3/mcL Normal 0.0-0.7 [facility] Comment on above: Performed By: #### A DIFF, A1C, CBC, ANEU #### [address] [address] Eosinophils/100 WBC (Bld) 7.7 % High 0.0-7.0 [facility] Comment on above: Performed By: #### A DIFF, A1C, CBC, ANEU #### [address] [address] Lymphocyte, Absolute 2.7 10 3/mcL Normal 0.9-4.3 [facility] Comment on above: Performed By: #### A DIFF, A1C, CBC, ANEU #### [address] [address] Lymphocytes/100 WBC (Bld) 32.5 % Normal 20.0-40.0 [facility] Comment on above: Performed By: #### A DIFF, A1C, CBC, ANEU #### [address] [address] Monocyte, Absolute 0.6 10 3/mcL Normal 0.1-1.4 [facility] Comment on above: Performed By: #### A DIFF, A1C, CBC, ANEU #### [address] [address] Monocytes/100 WBC (Bld) 7.4 % Normal 2.0-13.0 [facility] Comment on above: Performed By: #### A DIFF, A1C, CBC, ANEU #### [address] [address] Neutrophils/100 WBC (Bld) 51.4 % Normal 50.0-75.0 [facility] Comment on above: Performed By: #### A DIFF, A1C, CBC, ANEU #### [address] [address] .NEUABSon 07-03-2024 Neutrophil, Absolute 4.3 10 3/mcL Normal 2.3-8.1 [facility] Comment on above: Performed By: #### A DIFF, A1C, CBC, ANEU #### [address] A1Con 07-03-2024 Glucose [Mass/Vol] 140 mg/dL Normal [facility] Comment on above: Result Comment: Marva mated Average Glucose calculated by equation ((28.7xA1C)-46.7) Estimated average glucose (eAG) is a calculated value from Hemoglobin A1C and is medical billing representative of the average blood glucose level in the last 2-3 month period. Normal range: less than 114 mg/dL Performed By: #### A DIFF, A1C, CBC, ANEU #### [address] [address] HbA1c (Bld) [Mass fraction] 6.5 % High 4.3-6.4 [facility] Comment on above: Performed By: #### A DIFF, A1C, CBC, ANEU #### [address] [address] CBCon 07-03-2024 Erythrocyte distribution width (RBC) [Ratio] 13.2 % Normal 11.5-15.5 [facility] Comment on above: Performed By: #### A DIFF, A1C, CBC, ANEU #### [address] [address] Hematocrit (Bld) [Volume fraction] 34.8 % Low 40.0-52.0 [facility] Comment on above: Performed By: #### A DIFF, A1C, CBC, ANEU #### [address] [place] [address] Hgb 12.1 G/dL Low 13.0-17.5 [facility] Comment on above: Performed By: #### A DIFF, A1C, CBC, ANEU #### [address] [address] MCH (RBC) [Entitic mass] 32.1 pg Normal 27.0-33.0 [facility] Comment on above: Performed By: #### A DIFF, A1C, CBC, ANEU #### [place] [address] MCHC 34.7 G/dL Normal 32.0-36.0 [facility] Comment on above: Performed By: #### A DIFF, A1C, CBC, ANEU #### [address] [address] MCV (RBC) [Entitic vol] 92.5 fL Normal 81.0-100.0 [facility] Comment on above: Performed By: #### A DIFF, A1C, CBC, ANEU #### [address] [address] Platelet 230 10 3/mcL Normal 150-450 [facility] Comment on above: Performed By: #### A DIFF, A1C, CBC, ANEU #### [address] [address] Platelet mean volume (Bld) [Entitic vol] 9.4 fL Normal 6.4-10.5 [facility] Comment on above: Performed By: #### A DIFF, A1C, CBC, ANEU #### [address] [address] RBC 3.76 10 6/mcL Low 4.50-6.00 [facility] Comment on above: Performed By: #### A DIFF, A1C, CBC, ANEU #### [address] [address] WBC 8.3 10 3/mcL Normal 4.5-10.8 [facility] Comment on above: Performed By: #### A DIFF, A1C, CBC, ANEU #### [address] [address] LABORATORYOrdered By: SYSTEM SYSTEM on 07-03-2024 Basophils (Bld) [#/Vol] 0.1 103/mcL Normal 0.0 - 0.2 10^3/mcL AO Workflow SS Basophils/100 WBC (Bld) 1.0 % Normal 0.0 - 2.5 % AO Workflow SS Eosinophil, Absolute 0.6 103/mcL Normal 0.0 - 0 .7 10^3/mcL AO Workflow SS Eosinophils/100 WBC (Bld) 7.7 % High 0.0 - 7.0 % AO Workflow SS Erythrocyte distribution width (RBC) [Ratio] 13.2 % Normal 11.5 - 15.5 % AO Workflow SS Glucose [Mass/Vol] 140 mg/dL Invalid Interpretation Code AO Chemistry S Comment on above: Interpretive Data: E stimated average glucose (eAG) is a calculated value from Hemoglobin A1C and is medical billing representative of the average blood glucose level in the last 2-3 month period. Normal range: less than 114 mg/dL HbA1c (Bld) [Mass fraction] 6.5 % High 4.3 - 6.4 % AO ADM SS Hematocrit (Bld) [Volume fraction] 34.8 % Low 40.0 - 52.0 % AO Workflow SS Hemoglobin (Bld) [Mass/Vol] 12.1 G/dL Low 13.0 - 17.5 G/dL AO Workflow SS Lymphocytes (Bld) [#/Vol] 2.7 103/mcL Normal 0.9 - 4.3 10^3/mcL AO Workflow SS Lymphocytes/100 WBC (Bld) 32.5 % Normal 20.0 - 40.0 % AO Workflow SS MCH (RBC) [Entitic mass] 32.1 pg Normal 27.0 - 33.0 pg AO Workflow SS MCHC 34.7 G/dL Normal 32.0 - 36.0 G/dL AO Workflow SS MCV (RBC) [Entitic vol] 92.5 fL Normal 81.0 - 100.0 fL AO Workflow SS Monocytes (Bld) [#/Vol] 0.6 103/mcL Normal 0.1 - 1.4 10^3/mcL AO Workflow SS Monocytes/100 WBC (Bld) 7.4 % Normal 2.0 - 13.0 % AO Workflow SS Neutrophils (Bld) [#/Vol] 4.3 103/mcL Normal 2.3 - 8.1 10^3/mcL AO Workflow SS Neutrophils/100 WBC (Bld) 51.4 % Normal 50.0 - 75.0 % AO Workflow SS Platelet mean volume (Bld) [Entitic vol] 9.4 fL Normal 6.4 - 10.5 fL AO Workflow SS Platelets (Bld) [#/Vol] 230 103/mcL Normal 150 - 450 10^3/mcL AO Workflow SS RBC (Bld) [#/Vol] 3.76 106/mcL Low 4.50 - 6.0 0 10^6/mcL AO Workflow SS WBC (Bld) [#/Vol] 8.3 103/mcL Normal 4.5 - 10.8 10^3/mcL AO Workflow SS LABORATORYOrdered By: Belen Aguila on 07-03-2024 Albumin DL <= 20 mg/L (U) [Mass/Vol] 716 mcg/dL Invalid Interpretation Code AO ADM SS Albumin/Creatinine DL <= 20 mg/L (U) [Mass ratio] 5 mcg/mg Normal 0 - 30 mcg/mg AO Chemistry S Creatinine (U) [Mass/Vol] 148.5 mg/dL Invalid Interpretation Code AO ADM SS MALBRon 07-03-2024 U Creatinine 148.5 mg/dL Normal [facility] Comment on above: Performed By: #### M ALBR #### [address] [address] U Microalb 716 mcg/dL Normal [facility] Comment on above: Performed By: #### M ALBR #### [id number] [place], [place] [address] U Ratio Alb/Cre 5 mcg/mg Normal 0-30 [facility] Comment on above: Performed By: #### M ALBR #### [address] [address] CNOVon 05-03-2024 CNOV Office Visit (PMNA11 ) LIDIA SINGH ([id number]) 1955 [employer] Date Time Provider Department 05/03/24 2:00 PM GILBERT RHODES PMNA11 During your visit today, we recorded the following information about you: Temperature Pulse Respiration Blood pressure 97.9 degrees 52/minute 18/minute 138/58 Weight 65.9 kg Gilbert Rhodes MD 05/03/2024 2:17 PM Signed INTERVENTIONAL PULMONARY MEDICINE PROGRESS NOTE PLEASE DO NOT REMOVE FROM THE CHART OR MODIFY PRINTED COPY CC: I am seeing Lidia Singh in follow up for RUL nodule. Summary of this visit and my recommendations will be relayed to the referring physician by way of electronic communication or by mail. PCP: Julissa García CNP, LIGHT BULB ASSEMBLER Referring Provider: Isaias Franz V MD ( ; ) HPI: Mr. Singh is a 69 year old male with history of prostate cancer s/p prostatectomy 4 years ago, melanoma of the back removed in 2013 or so, peripheral arterial disease s/p surgery and left stenting (not on antiplatelet now) and former smoker 50 pack years quit in 02/2023 who is here to follow up on a right upper lobe nodule. No new symptoms or changes. He recently got started on smoking marijuana. REVIEW OF SYSTEMS: Gen: There are no fevers, chills, night sweats or weight loss. Resp: Negative for cough, hemoptysis, wheezing, COPD, dyspnea or shortness of breath. CV: There is no exertional chest pain or palpations. Review of systems is otherwise negative. PAST MEDICAL HISTORY: PAST MEDICAL HISTORY Diagnosis Date Abdominal pain, right lower quadrant Abscess of intestine 05/09/2006 Alcohol abuse, in remission Benign neoplasm of colon Benign neoplasm of colon Carpal tunnel syndrome bilateral Diverticulitis of colon (without mention of hemorrhage)(562.11) 05/23/2006 DVT (deep venous thrombosis) (HCC) Embolism and thrombosis of unspecified site 09/19/2007 Right calf Headache, cluster, episodic Hypertrophy of prostate without urinary obstruction and other lower urinary tract symptoms (LUTS) Hypertrophy of the prostate w/o obstruction Mixed hyperlipidemia Hyperlipidemia Peptic ulcer, unspecified site, unspecified as acute or chronic, without mention of hemorrhage or perforation Tobacco use disorder 04/14/2005 Unspecified glaucoma(365.9) MEDICATIONS: ferrous sulfate 325 mg (65 mg iron) EC tablet TAKE 1 TABLET BY MOUTH EVERY MONDAY, MONDAY AND MONDAY fluticasone (FLONASE) 50 mcg/actuation nasal spray INSTILL 1 SPRAY INTO NOSTRIL EVERY MORNING TRELEGY ELLIPTA 100-62.5-25 mcg inhalation powder Inhale 1 Puff as instructed once daily. omeprazole (PRILOSEC) 20 mg capsule Take 20 mg by mouth once daily. vitamin b complex capsule Take 1 capsule by mouth every afternoon. Vitamin Q97-Rynxf Acid 0.5-1 mg tab Take by mouth. losartan (COZAAR) 25 mg tablet Take 1 (ONE) tab(s) Oral EVERY Day latanoprost (XALATAN) 0.005 % ophthalmic solution instill 1 (ONE) DROP IN BOTH EYES NIGHTLY meloxicam (MOBIC) 15 mg tablet Take 1 tablet by mouth once daily. atorvastatin (LIPITOR) 40 mg tablet Take 40 mg by mouth once daily. aspirin, enteric coated (ECOTRIN LOW STRENGTH) 81 mg EC tablet Take 1 tablet by mouth once daily. varenicline tartrate (CHANTIX ORAL) Take by mouth. SOCIAL HISTORY: Social History Tobacco Use Smoking status: Every Day Current packs/day: 1.00 Average packs/day: 1 pack/day for 52.2 years (52.2 ttl pk-yrs) Types: Cigarettes Start date: 02/23/1972 Smokeless tobacco: Never Tobacco comments: Quit 02/2023. Vaping Use Vaping status: Never Used Substance Use Topics Alcohol use: No Comment: past history of alcohol abuse Drug use: Yes Comment: Smokes 1 joint once a week FAMILY HISTORY: FAMILY HISTORY Problem Relation Age of Onset Cancer Mother lung cancer, Cancer Father stomach cancer, Diabetes Father Cancer Maternal Grandmother breast cancer, dec. Diabetes Maternal Grandmother Prostate Cancer Brother 3 years older Coronary Artery Disease Brother 48 y.o. [place], premature Hypertension Brother Coronary Artery Disease Sister age 54, [place] PHYSICAL EXAM: VITAL SIGNS: BP 138/58 Pulse 52 Temp (Src) 97.9 (Temporal) Resp 18 Wt 145 lb 4.5 oz (65.9kg) SpO2 98% General appearance: well appearing, alert, and in no acute distress Skin: skin color, texture, turgor normal, no rashes or lesions Head: normal Eyes: Not icteric ENT: Moist mucous membranes Neck: Supple Lungs: lungs clear to auscultation no wheezing or rhonchi Heart: RRR without murmur, gallop, or rubs Abdomen: Not examined Extremities: Extremities normal. No obvious deformities, edema, or skin discoloration Neuro: Gait normal. DATA: Labs: N/A Imaging: Reviewed and compared to prior IMPRESSIONS: # Right upper lung nodule, PET avid - resolving ? # New separate right upper (more content not included)... Normal [facility] CT CHEST WO IVCONon 05-03-[address] CHEST WO IVCON * * *Final Report* * * DATE OF EXAM: May 03 2024 12:49PM [facility] 0541 - CT CHEST WO IVCON / PROCEDURE REASON: Right upper lobe pulmonary nodule * * * * Physician Interpretation * * * * EXAMINATION: CHEST CT WITHOUT CONTRAST CLINICAL HISTORY: Right upper lobe pulmonary nodule Technique: Spiral CT acquisition of the chest from the thoracic inlet to the upper abdomen without contrast. MQ: CTCWO_6 CT Radiation dose: Integrated Dose-length product (DLP) for this visit = 218 mGy*cm CT Dose Reduction Employed: Automated exposure control (AEC) Comparison: Outside PET/CT dated 01/09/2024 and additional more remote chest CT studies. RESULT: Limitations: Mild breathing motion artifacts. Lines, tubes, and devices: None. Lung parenchyma and airways: Previously seen slightly elevated the spiculated 1 cm nodule in the right upper lobe has become smaller and more ill-defined with increase in surrounding architectural distortion. The findings are possibly secondary to radiation therapy of malignant nodule. Resolving inflammatory lesion can be considered the differential diagnosis but felt to be less likely given the high FDG uptake on the PET/CT. Compared to the standards chest dated 12/19/2023, there have been mixed interval changes with overall improvement of numerous scattered predominantly groundglass opacities most of which are centrilobular in distribution. These were probably secondary to respiratory bronchiolitis. Excluding other etiologies of the persistent larger lesions such as low-grade lung neoplasm is difficult, for example in the superior segment of the right lower lobe-image 79 and left upper lobe-image 61. Continued follow-up is recommended. Tiny 6 mm solid nodule in the right lung apex seen on image 19 is new since the previous exams. Although this could be inflammatory, other etiologies including neoplasm are not excluded. Follow-up is recommended. Inflammatory airway thickening and patchy air trapping is again seen bilaterally, suggesting airway disease. Mild emphysematous cysts are seen in both lungs. Pleural space: No pleural effusion. No pleural thickening. Lower neck, lymph nodes, and mediastinum: The central airways are patent. Thyroid is somewhat atrophic with no focal lesion. There is no significant mediastinal or hilar adenopathy. Small to borderline mediastinal or hilar nodes are stable and likely reactive. Again noted is mild nonspecific thickening of the distal esophagus. Tiny hiatal hernia is more distended on the current exam. Heart, pericardium, and thoracic vessels: Normal sized heart with no pericardial effusion. Atherosclerotic calcifications are in the coronary arteries and aorta. [ ] Thoracic aorta, main pulmonary arteries and SVC are within normal in diameter. Bones and soft tissues: No mass, fluid collection or axillary adenopathy. Degenerative changes are seen in the spine. No suspicious lytic or sclerotic osseous lesion. Mild generalized osteopenia. Upper abdomen: Unchanged. Localizer images: No additional information. IMPRESSION: 1 cm right upper lobe nodule is smaller and ill-defined with development of architectural distortion of the surrounding parenchyma. The findings are suggestive of radiation therapy of neoplastic lesion. Resolving inflammatory lesion can be considered in the imaging differential diagnosis. Continued follow-up is recommended. Development of 5 to 6 mm right apical solid nodule. This could be inflammatory. Neoplastic nature is not entirely excluded. Attention on follow-up is recommended. Mixed changes overall improvement of scattered mostly groundglass nodules in both lungs. Differential as detailed in the body of the report. Attention on follow-up is recommended. Airway disease. Plastics Bench Mechanic: PSCLexi Transcribe Date/Time: May 04 2024 7:43P Dictated by : JULIANA ROBERTSON MD This examination was interpreted and the report reviewed and electronically signed by: JULIANA ROBERTSON MD on May 04 2024 8:58PM EST [id number] Normal [facility] 03-22-2024 [facility] Telephone ([id number]) LIDIA SINGH ([id number]) 1955 Peggy Espitia* Date Time Provider Department 03/22/24 DMITRY ORTIZ [id number] During your visit today, we recorded the following information about you: Dmitry Ortiz 03/22/2024 9:55 AM Signed Spoke with spouse to schedule CT AND f/u 05/03 Lucas Resident Assistant Cna, Adrianne 04/23/2024 10:03 AM Signed Left michelle to move time back on appointment for 05/03/2024. 30 min. Lucas Resident Assistant Cna, Adrianne 04/23/2024 2:49 PM Signed Annie, () called back to approved time change on 05/03/2024. Allergies As of Date: 03/22/2024 Noted Allergy Reaction LESLYEE 06/01/2005 8 - GI Upset Date Reviewed: 02/23/2024 Reviewed by: Gilbert Rhodes MD - Fully Assessed Prescriptions as of 04/23/2024 - varenicline tartrate (CHANTIX ORAL) Take by mouth. - Vitamin V02-Bxmek Acid 0.5-1 mg tab Take by mouth. - losartan (COZAAR) 25 mg tablet Take 1 (ONE) tab(s) Oral EVERY Day - latanoprost (XALATAN) 0.005 % ophthalmic solution instill 1 (ONE) DROP IN BOTH EYES NIGHTLY - meloxicam (MOBIC) 15 mg tablet Take 1 tablet by mouth once daily. - atorvastatin (LIPITOR) 40 mg tablet Take 40 mg by mouth once daily. - aspirin, enteric coated (ECOTRIN LOW STRENGTH) 81 mg EC tablet Take 1 tablet by mouth once daily. Problem List As Of Date 03/22/2024 Noted Resolved TOBACCO USE DISORDER [F17.200] 04/14/2005 Benign neoplasm of colon [D12.6] 05/27/2005 02/04/2017 HYPERLIPIDEMIA NEC/NOS [E78.5] 07/21/2005 IMPAIRED FASTING GLUCOSE [R73.01] 07/21/2005 Other tenosynovitis of hand and wrist [M65.849,*11/07/2005 02/04/2017 ABDOMINAL PAIN RLQ [R10.31] 12/14/2006 12/17/2008 VENOUS THROMBOSIS NOS [I74.9] 09/19/2007 12/17/2008 PERIPH VASCULAR DIS NOS [I73.9] 09/19/2007 GLAUCOMA NOS [H40.9] 03/21/2008 Sciatica [M54.30] 07/17/2009 Disc Displacement [[id number]] 07/17/2009 BPH loc w urin obs/LUTS [N40.1] 04/05/2010 Mixed hyperlipidemia [E78.2] Hypertrophy of prostate without urinary obstruc* Carpal tunnel syndrome [G56.00] 06/01/2010 02/04/2017 DDD (degenerative disc disease), lumbar [M51.36*09/19/2011 Lumbar spondylosis [M47.816] 09/19/2011 Postlaminectomy syndrome [M96.1] 09/23/2011 longterm use of drug [Z79.899] 02/24/2012 Labral tear of long head of biceps tendon [S46.*05/16/2012 Rupture of long head biceps tendon [S46.119A] 05/16/2012 Malignant melanoma of skin of trunk, except scr*11/25/2015 02/04/2017 Melanoma of back (HCC) [C43.59] 11/26/2015 Atypical nevi [D22.9] 02/04/2016 02/04/2017 Multiple benign nevi [D22.9] 02/04/2016 02/04/2017 Lentigines [L81.4] 02/04/2016 02/04/2017 Seborrheic keratosis [L82.1] 02/04/2016 02/04/2017 Chronic right shoulder pain [M25.511, G89.29] 02/04/2017 PAD (peripheral artery disease) (HCC) [I73.9] 02/04/2017 Essential hypertension, benign [I10] 10/02/2020 History of colonic diverticulitis [Z87.19] 10/02/2020 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] 10/02/2020 Encounter Status:Closed by DMITRY ORTIZ on 03/22/24 Normal [facility] PT D/C Summary (1)on 024 PT D/C Summary (1) [facility] [address] [place] [address] [address] [place] [address] / REHABILITATION SERVICES DISCHARGE SUMMARY MR#: [id number] Acct: [id number] Name: LIDIA SINGH Rep #: [id number] : 1955 68 From: Kg Harper PT, Cert. T, OCS Referring Dr.: Dr. Faraz Carter MD Status: REG RCR Insurance: [employer] SELF PAY INSURANCE Discharge Summary D/C summary: It has been my pleasure to treat LIDIA SINGH referred by Dr. Faraz Carter MD, with the diagnosis of OTHER DISTURBANCES OF SKIN SENSATION for a total of 8 visit(s). Discharge Date: Please see the following information for a summary of their discharge status. Subjective Subjective: Patient doing much better overall. Therapy is really helping ,patient is able to walk further bend for ADL Pain Bilateral Back: Pain Intensity (Out of 10): 0 Overall Improvement % Improvement: 100 Objective Objective/Function: POSTURE: mild forward posture NEURO: denies paresthesia/tingling ,reflexes L3-4,L4-5,L5-S1 2/3 PALATION: unremarkable SYMMETRIES :align FLEXABILITY: hamstrings mod tight MMT: quads/hams 4/5 ,hip flexion 4-/5 ,hip abd 4-/5 ,ankle 4/5 LUMBAR ROM: flexion min loos ,extension min right side ,side glides MIN loss no pain Goals Goal 1:: Patient to be I with HEP for lumbar Goal Progress: Goal Met Goal 2:: Patient to improve lumbar ROM for function of recovery for ADLS and job demands . Goal Progress: Goal Met Goal 3:: Patient to improve back oswestry score by 5 points or > to improve QOL and function. Goal Progress: Goal Met Goal 4:: Patient to improve posture/body mechanics for job demands Goal Progress: Goal Met Goal 5:: Patient to improve back oswestry score by 5 points to improve QOL and function Goal Progress: Goal Met Plan Plan: D/C D/C Information d/c sentence: If there are questions or concerns regarding this patient's physical therapy, please feel free to call me at [phone]. Thank you for the referral of this patient. Sincerely, Kg Harper, PT, Cert MDT, OCS Balance/Gait/Functiona l tests Balance/Special Test Scores Oswestry Low Back Score: 0 Improvement % Improvement: 100 03/18/24 1553 CC: DOT [place]; Dr. Faraz Carter MD JLA Signed Normal [facility] 03-14-2024 [facility] Telephone ([id number]) LIDIA SINGH ([id number]) 1955 Peggy Espitia* Date Time Provider Department 03/14/24 GILBERT RHODES [id number] During your visit today, we recorded the following information about you: Gilbert Rhodes MD 03/14/2024 4:18 PM Signed I called patient to follow up plan since we have had so much difficulty tracking done his prior CT chests. They too have tried to send it to us. I explained that nevertheless, we need to follow up with another CT chest. Will plan for this in early Apr followed by same day visit with me to make their trip worth. They verbalized understanding to the plan. I will ask my schedulers to reach out to them. See Sam Rhodes MD Interventional Pulmonary 03/14/24 Allergies As of Date: 03/14/2024 Noted Allergy Reaction NABUMETONE 06/01/2005 8 - GI Upset Date Reviewed: 02/23/2024 Reviewed by: Gilbert Rhodes MD - Fully Assessed Reason for Visit: Orders [681] Primary Visit Diagnosis:Right upper lobe pulmonary nodule [R91.1] Order(s):CT CHEST WO XUON [[id number]] Order #: [id number] FUTURE Prescriptions as of 03/14/2024 - varenicline tartrate (CHANTIX ORAL) Take by mouth. - Vitamin U70-Iavlp Acid 0.5-1 mg tab Take by mouth. - losartan (COZAAR) 25 mg tablet Take 1 (ONE) tab(s) Oral EVERY Day - latanoprost (XALATAN) 0.005 % ophthalmic solution instill 1 (ONE) DROP IN BOTH EYES NIGHTLY - meloxicam (MOBIC) 15 mg tablet Take 1 tablet by mouth once daily. - atorvastatin (LIPITOR) 40 mg tablet Take 40 mg by mouth once daily. - aspirin, enteric coated (ECOTRIN LOW STRENGTH) 81 mg EC tablet Take 1 tablet by mouth once daily. Problem List As Of Date 03/14/2024 Noted Resolved TOBACCO USE DISORDER [F17.200] 04/14/2005 Benign neoplasm of colon [D12.6] 05/27/2005 02/04/2017 HYPERLIPIDEMIA NEC/NOS [E78.5] 07/21/2005 IMPAIRED FASTING GLUCOSE [R73.01] 07/21/2005 Other tenosynovitis of hand and wrist [M65.849,*11/07/2005 02/04/2017 ABDOMINAL PAIN RLQ [R10.31] 12/14/2006 12/17/2008 VENOUS THROMBOSIS NOS [I74.9] 09/19/2007 12/17/2008 PERIPH VASCULAR DIS NOS [I73.9] 09/19/2007 GLAUCOMA NOS [H40.9] 03/21/2008 Sciatica [M54.30] 07/17/2009 Disc Displacement [[id number]] 07/17/2009 BPH loc w urin obs/LUTS [N40.1] 04/05/2010 Mixed hyperlipidemia [E78.2] Hypertrophy of prostate without urinary obstruc* Carpal tunnel syndrome [G56.00] 06/01/2010 02/04/2017 DDD (degenerative disc disease), lumbar [M51.36]09/19/2011 Lumbar spondylosis [M47.816] 09/19/2011 Postlaminectomy syndrome [M96.1] 09/23/2011 longterm use of drug [Z79.899] 02/24/2012 Labral tear of long head of biceps tendon [S46.*05/16/2012 Rupture of long head biceps tendon [S46.119A] 05/16/2012 Malignant melanoma of skin of trunk, except scr*11/25/2015 02/04/2017 Melanoma of back (HCC) [C43.59] 11/26/2015 Atypical nevi [D22.9] 02/04/2016 02/04/2017 Multiple benign nevi [D22.9] 02/04/2016 02/04/2017 Lentigines [L81.4] 02/04/2016 02/04/2017 Seborrheic keratosis [L82.1] 02/04/2016 02/04/2017 Chronic right shoulder pain [M25.511, G89.29] 02/04/2017 PAD (peripheral artery disease) (HCC) [I73.9] 02/04/2017 Essential hypertension, benign [I10] 10/02/2020 History of colonic diverticulitis [Z87.19] 10/02/2020 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] 10/02/2020 Encounter Status:Closed by GILBERT RHODES on 03/14/24 Normal [facility] SIX MINUTE WALKon 02-23-2024 Eugenio Cody MD 02/23/2024 11:42 AM RESPIRATORY THERAPY SIX MINUTE WALK TEST OXIMETRY REPORT Six Minute Walk Test for This Encounter Oxygen Device Liters FIO2 SpO2% HR Activity Feet Speed (MPH) Flag R/A 100 59 Resting R/A 100 74 Six Minute Walk 1190 2.3 R/A 100 64 Recovery 1 minute post R/A 100 56 Recovery 2 minute post R/A 100 54 Recovery 3 minute post General Information Height Weight Pulse Oximetry Site Oximeter Pre Blood Pressure Post Blood Pressure Total Time Spent (min) 157.4 cm (5' 1.97") 65.5 kg (144 lb 6.4 oz) Forehead Masimo 153/61 175/55 30 _ Distance Walked (meters) Distance Walked (feet) Male Predicted Walk Distance (feet) Male Lower Limit of Normal (feet) Male % Predicted Total Duration Of The Stops (seconds) 362.71 1190 1380.91 878.91 86.2 -- _ Lowest SpO2 During 6 Minute Walk Pre-Harjeet Dyspnea Rating Pre-Harjeet Fatigue Rating Post Harjeet Dyspnea Rating Post Harjeet Fatigue Rating 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 . The patient required Room Air to complete the test. The distance the patient walked in six minutes is within the predicted normal range. This is the first time patient takes the six minute walk test. The patient perceived their dyspnea during the six minute walk test to be 2-Slight on the modified Harjeet scale. The patient perceived their fatigue during the six minute walk test to be 2-Slight on the modified Harjeet scale. I have reviewed the findings and made appropriate revisions as needed. SIGNATURE: Eugenio Cody MD PATIENT NAME: Lidia Singh DATE: February 23, 2024 TIME: 11:42 AM [facility] SIX MINUTE WALKOrdered By: Vidal Cody on 02-23-2024 [facility] Work Phone: .GFRon 02-20-2024 GFR Non- 55 ml/min/1.73sqm Normal [facility] ([place]) Comment on above: Result Comment: GFR Population mean for , Non- Americans Ages 20-29 = 116 mL/min/1.73 sq.m. Ages 30-39 = 107 mL/min/1.73 sq.m. Ages 40-49 = 99 mL/min/1.73 sq.m. Ages 50-59 = 93 mL/min/1.73 sq.m. Ages 60-69 = 85 mL/min/1.73 sq.m. Ages 70+ = 75 mL/min/1.73 sq.m. Chronic Kidney Disease: Less than 60 mL/min/1.73 square meters End Stage Renal Disease: Less than 15 mL/min/1.73 square meters Performed By: #### C MP, FERR, GFR, FE #### [id number] [place], [place] [address] GFR 66 ml/min/1.73sqm Normal [facility] ([place]) Comment on above: Result Comment: GFR Population mean for , Non- Americans Ages 20-29 = 116 mL/min/1.73 sq.m. Ages 30-39 = 107 mL/min/1.73 sq.m. Ages 40-49 = 99 mL/min/1.73 sq.m. Ages 50-59 = 93 mL/min/1.73 sq.m. Ages 60-69 = 85 mL/min/1.73 sq.m. Ages 70+ = 75 mL/min/1.73 sq.m. Chronic Kidney Disease: Less than 60 mL/min/1.73 square meters End Stage Renal Disease: Less than 15 mL/min/1.73 square meters Performed By: #### C MP, FERR, GFR, FE #### [address] [address] CMPon 02-20-2024 Albumin Level 3.9 G/dL Normal 3.4-4.8 [facility] ([place]) Comment on above: Performed By: #### C MP, FERR, GFR, FE #### [address] [address] Albumin/Globulin [Mass ratio] 1.3 {ratio} Normal 1.1-2.5 [facility] ([place]) Comment on above: Performed By: #### C MP, FERR, GFR, FE #### [address] [address] ALP [Catalytic activity/Vol] 90 U/L Normal 40-135 [facility] ([place]) Comment on above: Performed By: #### C MP, FERR, GFR, FE #### [address] [address] ALT [Catalytic activity/Vol] 40 U/L Normal 16-63 [facility] ([place]) Comment on above: Performed By: #### C MP, FERR, GFR, FE #### [address] [address] AST [Catalytic activity/Vol] 14 U/L Normal 10-40 [facility] ([place]) Comment on above: Performed By: #### C MP, FERR, GFR, FE #### [address] [address] Bili Total 0.3 mg/dL Normal 0.2-1.0 [facility] ([place]) Comment on above: Result Comment: Use of this assay is not recommended for patients undergoing treatment with eltrombopag due to the potential for falsely elevated results. Performed By: #### C MP, FERR, GFR, FE #### [address] [address] BUN/Creatinine Ratio 13 ratio Normal 7-27 [facility] ([place]) Comment on above: Performed By: #### C MP, FERR, GFR, FE #### [address] [address] Calcium [Mass/Vol] 9.0 mg/dL Normal 8.4-10.2 [facility] ([place]) Comment on above: Performed By: #### C MP, FERR, GFR, FE #### [address] [address] Chloride [Moles/Vol] 99 mmol/L Normal 98-107 [facility] ([place]) Comment on above: Performed By: #### C MP, FERR, GFR, FE #### [address] [address] CO2 [Moles/Vol] 24 mmol/L Normal 23-31 [facility] ([place]) Comment on above: Performed By: #### C MP, FERR, GFR, FE #### [address] [address] Creatinine [Mass/Vol] 1.30 mg/dL Normal 0.70-1.30 [facility] ([place]) Comment on above: Result Comment: Test ing performed on Siemens Dimension EXL analyzer using a modified kinetic Philomena technique. Performed By: #### C MP, FERR, GFR, FE #### [address] [address] Electrolyte Balance 10.0 mEq/L Normal 4.0-15.0 [facility] ([place]) Comment on above: Performed By: #### C MP, FERR, GFR, FE #### [address] [address] Globulin 3.1 G/dL Normal [facility] ([place]) Comment on above: Performed By: #### C MP, FERR, GFR, FE #### [address] [address] Glucose [Mass/Vol] 231 mg/dL High 80-115 [facility] ([place]) Comment on above: Performed By: #### C MP, FERR, GFR, FE #### [address] [address] Potassium [Moles/Vol] 4.7 mmol/L Normal 3.5-5.1 [facility] ([place]) Comment on above: Performed By: #### C MP, FERR, GFR, FE #### [address] [address] Sodium [Moles/Vol] 133 mmol/L Low 136-145 [facility] ([place]) Comment on above: Performed By: #### C MP, FERR, GFR, FE #### [address] [address] Total Protein 7.0 G/dL Normal 6.4-8.2 [facility] ([place]) Comment on above: Performed By: #### C MP, FERR, GFR, FE #### [address] [address] Urea nitrogen [Mass/Vol] 17 mg/dL Normal 7-18 [facility] ([place]) Comment on above: Performed By: #### C MP, FERR, GFR, FE #### [address] [address] FEon 02-20-2024 Iron [Mass/Vol] 43 ug/dL Low 65-175 [facility] ([place]) Comment on above: Performed By: #### C MP, FERR, GFR, FE #### [address] [address] Melania 02-20-2024 Ferritin [Mass/Vol] 133.0 ng/mL Normal 26.0-388.0 [facility]) Comment on above: Performed By: #### C MP, FERR, GFR, FE #### [address] [address] LABORATORYOrdered By: SYSTEM SYSTEM on 02-20-2024 Albumin BCP dye [Mass/Vol] 3.9 G/dL Normal 3.4 - 4.8 G/dL AO ADM SS Albumin/Globulin [Mass ratio] 1.3 {ratio} Normal 1.1 - 2.5 ratio AO ADM SS ALP [Catalytic activity/Vol] 90 U/L Normal 40 - 135 U/L AO ADM SS ALT With P-5'-P [Catalytic activity/Vol] 40 U/L Normal 16 - 63 U/L AO ADM SS AST With P-5'-P [Catalytic activity/Vol] 14 U/L Normal 10 - 40 U/L AO ADM SS Bilirubin [Mass/Vol] 0.3 mg/dL Normal 0.2 - 1 .0 mg/dL AO ADM SS Comment on above: Interpretive Data: U se of this assay is not recommended for patients undergoing treatment with eltrombopag due to the potential for falsely elevated results. Calcium [Mass/Vol] 9.0 mg/dL Normal 8.4 - 10. 2 mg/dL AO ADM SS Chloride [Moles/Vol] 99 mmol/L Normal 98 - 10 7 mmol/L AO ADM SS CO2 [Moles/Vol] 24 mmol/L Normal 23 - 31 mmol/L AO ADM SS Creatinine [Mass/Vol] 1.30 mg/dL Normal 0.70 - 1.30 mg/dL AO ADM SS Comment on above: Interpretive Data: T esting performed on Siemens Dimension EXL analyzer using a modified kinetic Philomena technique. Electrolyte Balance 10.0 mEq/L Normal 4.0 - 15 .0 mEq/L AO ADM SS Ferritin [Mass/Vol] 133.0 ng/mL Normal 26.0 - 388.0 ng/mL AO ADM SS GFR/1.73 sq M.predicted among blacks MDRD (S/P/Bld) [Vol rate/Area] 66 ml/min/1.73sqm Invalid Interpretation Code AO Chemistry S Comment on above: Interpretive Data: GFR Population mean for , Non- Americans Ages 20-29 = 116 mL/min/1.73 sq.m. Ages 30-39 = 107 mL/min/1.73 sq.m. Ages 40-49 = 99 mL/min/1.73 sq.m. Ages 50-59 = 93 mL/min/1.73 sq.m. Ages 60-69 = 85 mL/min/1.73 sq.m. Ages 70+ = 75 mL/min/1.73 sq.m. Chronic Kidney Disease: Less than 60 mL/min/1.73 square meters End Stage Renal Disease: Less than 15 mL/min/1.73 square meters GFR/1.73 sq M.predicted among non-blacks MDRD (S/P/Bld) [Vol rate/Area] 55 ml/min/1.73sqm Invalid Interpretation Code AO Chemistry S Comment on above: Interpretive Data: GFR Population mean for , Non- Americans Ages 20-29 = 116 mL/min/1.73 sq.m. Ages 30-39 = 107 mL/min/1.73 sq.m. Ages 40-49 = 99 mL/min/1.73 sq.m. Ages 50-59 = 93 mL/min/1.73 sq.m. Ages 60-69 = 85 mL/min/1.73 sq.m. Ages 70+ = 75 mL/min/1.73 sq.m. Chronic Kidney Disease: Less than 60 mL/min/1.73 square meters End Stage Renal Disease: Less than 15 mL/min/1.73 square meters Globulin 3.1 G/dL Invalid Interpretation Code AO ADM SS Glucose [Mass/Vol] 231 mg/dL High 80 - 115 mg/dL AO ADM SS Iron [Mass/Vol] 43 ug/dL Low 65 - 175 mcg/dL AO ADM SS Potassium [Moles/Vol] 4.7 mmol/L Normal 3.5 - 5.1 mmol/L AO ADM SS Protein [Mass/Vol] 7.0 G/dL Normal 6.4 - 8.2 G/dL AO ADM SS Sodium [Moles/Vol] 133 mmol/L Low 136 - 145 mmol/L AO ADM SS Urea nitrogen [Mass/Vol] 17 mg/dL Normal 7 - 18 mg/dL AO ADM SS Urea nitrogen/Creatinine [Mass ratio] 13 ratio Normal 7 - 27 ratio AO ADM SS Inital Evaluation (1) - PTon 02-14-2024 Inital Evaluation (1) - PT [facility] [address] [place] [address] / REHABILITATION SERVICES INITIAL EVALUATION MR#: [id number] Acct: [id number] Name: LIDIA SINGH Rep #: [id number] : 1955 68 From: Kg Harper PT, Cert. T, OCS Referring Dr.: Dr. Faraz Carter MD Status: REG RCR Insurance: [employer] S[employer] SELF PAY INSURANCE Patient's Visit Information Visit Information Visit Information: LIDIA SINGH is a 68 year old M referred to Physical Therapy by Dr. Faraz Carter MD with a diagnosis of OTHER DISTURBANCES OF SKIN SENSATION. Date of Evaluation: 02/14/24 Physical Therapist: Kg Harper, PT, Cert MDT, OCS Visit Plan Frequency: 2x /Week Duration: 4 Weeks Plan: PT INTERVENTIONS DLS ,POSTURAL EX'S TORIBIO FLEXABILITY ,POSTURE EDUCATION ,ACTIVITY MODIFICATION AND FOR PAIN Subjective Subjective: This 68 y/o male presents to physical therapy with lumbar radiculopathy.Pain worse right > left. Patient has had back pain many years with 2 surgery's . Patient has had lumbar surgery 2008 lumbar discectomy ,and [address]. [address] Carter recommended PT and had x-rays DDD/osteophytes and pain management .Patient was referred by family . Medication prednisone in past. Patient pain symmetrical and lateral hips. Aggravating factors bending and walking ,occasional standing and lifting. Alleviating factors sitting.Patient condition with pain is worse after work and housework tasks. Coughing/sneezing-. Bowel/bladder-. Patient sleeping good. Patient has no trauma except surgery. Patient will try conservative's treatment before surgery. Patient goals to decrease pain. VOCATION: [employer] SOCIAL: Pain Bilateral Back: Pain Intensity (Out of 10): 4 Pain Intensity Range: 10 Objective Objective: POSTURE: mild forward posture NEURO: denies paresthesia/tingling ,reflexes L3-4,L4-5,L5-S1 2/3 PALATION: unremarkable SYMMETRIES :align FLEXABILITY: hamstrings mod tight MMT: quads/hams 4/5 ,hip flexion 4-/5 ,hip abd 4-/5 ,ankle 4/5 LUMBAR ROM: flexion mod loss pain right side ,extension min /mod right side ,side glides mod/severe loss pain right Special Tests L/S Slump test left side: Negative L/S Slump test right side: Negative L/S Left Straight Leg Raise: Negative L/S Right Straight Leg Raise: Negative Lumbar Standing: Flexion - Mechanical Response: No effect Lumbar Standing: Flexion - Symptoms During Testing: Increases Lumbar Standing: Flexion - Symptoms After Testing: Worse Lumbar Standing: Extension - Mechanical Response: No effect Lumbar Standing: Extension - Symptoms During Testing: Increases Lumbar Standing: Extension - Symptoms After Testing: Worse Lumbar Standing: Right Side Glides - Mechanical Response: No effect Lumbar Standing: Right Side [place] - Symptoms During Testing: Increases Lumbar Standing: Right Side [place] - Symptoms After Testing: Worse Lumbar Standing: Left Side [place] - Mechanical Response: No effect Lumbar Standing: Left Side [place] - Symptoms During Testing: No effect Lumbar Standing: Left Side [place] - Symptoms After Testing: No effect Lumbar Lying: Flexion - Mechanical Response: No effect Lumbar Lying: Flexion - Symptoms During Testing: Increases Lumbar Lying: Flexion - Symptoms After Testing: Worse Lumbar Lying: Extension - Mechanical Response: No effect Lumbar Lying: Extension - Symptoms During Testing: Increases Lumbar Lying: Extension - Symptoms After Testing: Worse Balance/Special Test Scores Oswestry Low Back Score: 25 Goals Goal 1:: Patient to be I with HEP for lumbar Goal Time Frame: 4-6 Weeks Goal 2:: Patient to improve lumbar ROM for function of recovery for ADLS and job demands . Goal Time Frame: 4-6 Weeks Goal 3:: Patient to improve back oswestry score by 5 points or > to improve QOL and function. Goal Time Frame: 4-6 Weeks Goal 4:: Patient to improve posture/body mechanics for job demands Goal Time Frame: 4-6 Weeks Goal 5:: Patient to improve back oswestry score by 5 points to improve QOL and function Goal Time Frame: 4-6 Weeks Rehabilitation Potential Physical Therapy Diagnosis: This patient has h/o 2 lumbar surgery discectomy and laminectomy 2008 and 2011 with pain worse with standing and bending increases with motion testing and positioning thus benefit from skilled PT Rehabilitation Potential: Good Anticipated Interventions Patient/Client Instruction: Educate patient on: Condition and Plan of Care For the Purpose of:: To decrease pain, To increase ROM, To improve muscle performance and motor function, To improve ability to perform ADL's, To increase tolerance to activity/condition/pos ition, To improve ability of physical actions for home/community/work/le isure, To improve gait and locomotor functions, To improve health of tissue, To decrease soft tissue rest (more content not included)... Normal [facility] .Auto Diffon 02-09-2024 Basophil, Absolute 0.1 10 3/mcL Normal 0.0-0.2 [facility] ([place]) Comment on above: Performed By: #### F OL, B12 #### [address] [address] #### ANEU, CBC, ADIFF #### [address] [address] Basophils/100 WBC (Bld) 0.8 % Normal 0.0-2.5 [facility] ([place]) Comment on above: Performed By: #### F OL, B12 #### [place] [address] #### ANEU, CBC, ADIFF #### [address] [address] Eosinophil, Absolute 0.5 10 3/mcL High 0.0-0.4 [facility] ([place]) Comment on above: Performed By: #### F OL, B12 #### [place] [address] #### ANEU, CBC, ADIFF #### [address] [address] Eosinophils/100 WBC (Bld) 5.4 % Normal 0.0-7.0 [facility] ([place]) Comment on above: Performed By: #### F OL, B12 #### [place] [address] #### ANEU, CBC, ADIFF #### [address] [address] Lymphocyte, Absolute 2.5 10 3/mcL Normal 0.8-3.9 [facility] ([place]) Comment on above: Performed By: #### F OL, B12 #### [place] [address] #### ANEU, CBC, ADIFF #### [address] [address] Lymphocytes/100 WBC (Bld) 27.1 % Normal 10.0-50.0 [facility] ([place]) Comment on above: Performed By: #### F OL, B12 #### [place] [address] #### ANEU, CBC, ADIFF #### [address] [address] Monocyte, Absolute 0.6 10 3/mcL Normal 0.2-1.0 [facility] ([place]) Comment on above: Performed By: #### F OL, B12 #### [address] [address] #### ANEU, CBC, ADIFF #### [address] [address] Monocytes/100 WBC (Bld) 6.8 % Normal 1.7-13.0 [facility] ([place]) Comment on above: Performed By: #### F OL, B12 #### [place] [address] #### ANEU, CBC, ADIFF #### [address] [address] Neutrophils/100 WBC (Bld) 59.9 % Normal 37.0-80.0 [facility] ([place]) Comment on above: Performed By: #### F OL, B12 #### [place] [address] #### ANEU, CBC, ADIFF #### [address] [address] .NEUABSon 02-09-2024 Neutrophil, Absolute 5.4 10 3/mcL Normal 2.9-6.2 [facility] ([place]) Comment on above: Performed By: #### F OL, B12 #### [place] [address] #### ANEU, CBC, ADIFF #### [address] [address] B12on 02-09-2024 Cobalamin (Vitamin B12) [Mass/Vol] 1627 pg/mL High 211-911 [facility] ([place]) Comment on above: Performed By: #### F OL, B12 #### [place] [address] #### ANEU, CBC, ADIFF #### [address] [address] CBCon 02-09-2024 Erythrocyte distribution width (RBC) [Ratio] 14.6 % High 11.5-14.5 [facility] ([place]) Comment on above: Performed By: #### F OL, B12 #### [place] [address] #### ANEU, CBC, ADIFF #### [address] [address] Hematocrit (Bld) [Volume fraction] 34.6 % Low 42.0-52.0 [facility] ([place]) Comment on above: Performed By: #### F OL, B12 #### [place] [address] #### ANEU, CBC, ADIFF #### [address] [address] Hgb 11.8 G/dL Low 14.0-18.0 [facility] ([place]) Comment on above: Performed By: #### F OL, B12 #### [place] [address] #### ANEU, CBC, ADIFF #### [address] [address] MCH (RBC) [Entitic mass] 32.4 pg High 27.0-31.2 [facility] ([place]) Comment on above: Performed By: #### F OL, B12 #### [place] [address] #### ANEU, CBC, ADIFF #### [address] [address] MCHC 34.1 G/dL Normal 31.8-35.4 [facility] ([place]) Comment on above: Performed By: #### F OL, B12 #### [place] [address] #### ANEU, CBC, ADIFF #### [address] [address] MCV (RBC) [Entitic vol] 95.0 fL High 80.0-94.0 [facility] ([place]) Comment on above: Performed By: #### F OL, B12 #### [place] [address] #### ANEU, CBC, ADIFF #### [address] [address] Platelet 192 10 3/mcL Normal 130-400 [facility] ([place]) Comment on above: Performed By: #### F OL, B12 #### [place] [address] #### ANEU, CBC, ADIFF #### [address] [address] Platelet mean volume (Bld) [Entitic vol] 9.7 fL Normal 7.4-10.4 [facility] ([place]) Comment on above: Performed By: #### F OL, B12 #### [place] [address] #### ANEU, CBC, ADIFF #### [place] [address] RBC 3.64 10 6/mcL Low 4.04-6.13 [facility] ([place]) Comment on above: Performed By: #### F OL, B12 #### [place] [address] #### ANEU, CBC, ADIFF #### [place] [address] WBC 9.1 10 3/mcL Normal 4.6-10.8 [facility] ([place]) Comment on above: Performed By: #### F OL, B12 #### [place] [address] #### ANEU, CBC, ADIFF #### [place] [address] FOLon 02-09-2024 Folate 26.09 ng/mL High 5.38-24.00 [facility] ([place]) Comment on above: Performed By: #### F OL, B12 #### [place] [address] #### ANEU, CBC, ADIFF #### [place] [address] LABORATORYOrdered By: SYSTEM SYSTEM on 02-09-2024 Basophil, Absolute 0.1 103/mcL Normal 0.0 - 0.2 10^3/mcL AO Workflow SS Basophils/100 WBC (Bld) 0.8 % Normal 0.0 - 2.5 % AO Workflow SS Cobalamin (Vitamin B12) [Mass/Vol] 1627 pg/mL High 211 - 911 pg/mL ADM SS Eosinophil, Absolute 0.5 103/mcL High 0.0 - 0 .4 10^3/mcL AO Workflow SS Eosinophils/100 WBC (Bld) 5.4 % Normal 0.0 - 7.0 % AO Workflow SS Erythrocyte distribution width (RBC) [Ratio] 14.6 % High 11.5 - 14.5 % AO Workflow SS Folate [Mass/Vol] 26.09 ng/mL High 5.38 - 24.00 ng/mL ADM SS Hematocrit (Bld) [Volume fraction] 34.6 % Low 42.0 - 52.0 % AO Workflow SS Hemoglobin (Bld) [Mass/Vol] 11.8 G/dL Low 14.0 - 18.0 G/dL AO Workflow SS Lymphocyte, Absolute 2.5 103/mcL Normal 0.8 - 3 .9 10^3/mcL AO Workflow SS Lymphocytes/100 WBC (Bld) 27.1 % Normal 10.0 - 50.0 % AO Workflow SS MCH (RBC) [Entitic mass] 32.4 pg High 27.0 - 31.2 pg AO Workflow SS MCHC 34.1 G/dL Normal 31.8 - 35.4 G/dL AO Workflow SS MCV (RBC) [Entitic vol] 95.0 fL High 80.0 - 94.0 fL AO Workflow SS Monocyte, Absolute 0.6 103/mcL Normal 0.2 - 1.0 10^3/mcL AO Workflow SS Monocytes/100 WBC (Bld) 6.8 % Normal 1.7 - 13.0 % AO Workflow SS Neutrophil, Absolute 5.4 103/mcL Normal 2.9 - 6 .2 10^3/mcL AO Workflow SS Neutrophils/100 WBC (Bld) 59.9 % Normal 37.0 - 80.0 % AO Workflow SS Platelet mean volume (Bld) [Entitic vol] 9.7 fL Normal 7.4 - 10.4 fL AO Workflow SS Platelets (Bld) [#/Vol] 192 103/mcL Normal 130 - 400 10^3/mcL AO Workflow SS RBC (Bld) [#/Vol] 3.64 106/mcL Low 4.04 - 6.1 3 10^6/mcL AO Workflow SS WBC (Bld) [#/Vol] 9.1 103/mcL Normal 4.6 - 10.8 10^3/mcL AO Workflow SS L/S Spine Min 4 Viewson 01-17 L/S Spine Min 4 Views [facility] [address] [place] [address] L/S Spine Min 4 Views MR#: [id number] Acct: [id number] Name: LIDIA SINGH Rep #: [id number] : 1955 M 68 From: Rasheed Neves MD 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 Low back pain. TECHNIQUE: 4 view(s) of the lumbar spine were obtained. COMPARISON: X-rays of the lumbar spine dated August 25, 2017 FINDINGS: Osteopenia. Normal lordosis. No substantial scoliosis. Diffuse moderate lower thoracic and lumbosacral facet sclerosis. Progression of intervertebral disc space narrowing from L1-2 to L5-S1 with increased osteophytes and subchondral sclerosis. Marked vascular calcification and clips in the pelvis, unaltered. RAD/L/S Spine Min 4 Views IMPRESSION: Osteopenia with progression of lower lumbosacral spondylosis compared to the prior study. Electronically Signed: Rasheed Neves MD at 16:09 EDT , CC: RACK WASHERCarmen Stanford; REEMA Gleason Plastics Bench Mechanic: Signed Normal [facility] Orthopedic Visit Reporton Orthopedic Visit Report [facility] [facility] [address] [place] [address] OFFICE VISIT Date of Service: 02/02/24 MR#: [id number] Acct: [id number] Name: LIDIA SINGH Rep #: [id number] : 1955 Provider: Dr. Faraz Carter MD Age/Sex: 68/M Location: [facility].FRANKO Status: Signed Intake Vital Signs 10/17/23 14:54 02/02/24 14:27 Height 5 ft 2 in 5 ft 2 in Weight: 146 lb BMI 26.6 Intake Visit Reasons: LUMBER SPINE Chief Complaint: Lumbar spine Accompanied by: Is patient in pain?: Yes (Lumbar spine ) Pain scale (1-10): 6 Allergies pregabalin (From Lyrica) Allergy (Verified 02/02/24 14:28) NEEDS FOLLOW-UP Medications ???Medication ???Instructions ???Recorded ???Confirmed ???Type aspirin 81 mg chewable tablet 81 mg PO QHS heart health 03/19/13 02/02/24 History atorvastatin 40 mg tablet 40 mg PO QHS 04/12/20 02/02/24 History latanoprost 0.005 % eye drops 1 drp EACH EYE QHS 04/12/20 02/02/24 History losartan 25 mg tablet 25 mg PO DAILY BP 08/05/20 02/02/24 History acetaminophen 500 mg tablet 500 mg PO Q6H PRN 10/12/22 02/02/24 History (Tylenol Extra Strength) nitroglycerin 0.4 mg sublingual 0.4 mg sublingual ONCE 10/12/22 02/02/24 History tablet vitamin B complex (B 1 tab PO DAILY 10/12/22 02/02/24 History Complex-Vitamin B12 tablet) omeprazole 40 mg capsule,delayed 40 mg PO BID 10/20/22 02/02/24 History release fluticasone fur. 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 Faraz Carter MD 02/02/24 7238. Part of today???s visit was documented by Melba Ballesteros LPN, acting as scribe. LIDIA SINGH is a 68 year old M here today for initial evaluation of lumbar spine pain. He reports a 6 month history of low back pain insidious onset. The low back pain radiates into his hips bilaterally, but is worse in the R. He states the right low back is the most painful. The pain has progressively getting worse. Says that the distance he can walk has decreased. He denies injury to his low back. He has had surgery for a herniated lumbar disk in 2008 and surgery for a pinched nerve in his low back in 2013. The surgeries were helpful for him for a period of time. His surgery in 2013 gave him relief until 2018. Pt has not done PT or seen a chiropractor. Pt did see pain management around the time of his surgery in 2008 but reports it was not helpful. Just got a stent placed for his legs and was on Plavix for 30 days, today was his last day of the blood thinner. He was having leg pain but after the stent he has no leg pain. He also has a history of a lung nodule that will be biopsied in the future. Ortho Exam General General: Yes no acute distress Neurologic: Yes alert and Yes oriented x3 Spine SPINE TESTING CERVICAL THORACIC LUMBAR Musculoskeletal Strength 0=absent - 5=normal Details: Neurological exam of the lower extremities shows 5 power of L leg and 4+ of the R. Well healed lumbar surgical scar. Normal sensation across all dermatomes. No midline or paraspinal tenderness. No hyperreflexia. Coding Level of Care Code Off vis,new,level 4 Diagnoses Other intervertebral disc degeneration, lumbar region M51.36 Time Spent (min) 45 Assessment and Plan Assessment and Plan (1) Other intervertebral disc degeneration, lumbar region: Status: Acute Orders: Orders L/S Spine Mi (more content not included)... Normal [facility] No Panel InformationOrdered By: Long Shah on 01-18-2024 Left RIMMA 0.99 [facility] [employer] Work Phone: [phone] Left arm BP 159 mmHg [facility] Work Phone: Left KARO dist PSV 190.3 cm/s [facility] Work Phone: Left KARO prox PSV 130.3 cm/s [facility] Work Phone: Left Dist Anastomosis EDV 3.5 cm/s [facility] Work Phone: Left Dist Anastomosis PSV 44.2 cm/s [facility] Work Phone: Left Dist Outflow EDV 0.0 cm/s [facility] Work Phone: Left Dist Outflow PSV 74.0 cm/s [facility] Work Phone: Left dorsalis pedis BP 142 mmHg [facility] Work Phone: Left EIA dist PSV 148.9 cm/s [facility] Work Phone: Left EIA mid PSV 155.9 cm/s [facility] Work Phone: Left EIA prox PSV 219.9 cm/s [facility] Work Phone: Left Inflow Artery EDV 8.9 cm/s [facility] Work Phone: Left Inflow Artery PSV 67.8 cm/s [facility] Work Phone: Left Mid Outflow EDV 0.0 cm/s [facility] Work Phone: Left Mid Outflow PSV 85.0 cm/s [facility] Work Phone: Left Outflow Vessel EDV 5.8 cm/s S [facility] Work Phone: Left Outflow Vessel PSV 129.5 cm/s S [facility] Work Phone: Left posterior tibial 157 mmHg [facility] [employer] Work Phone: Left Prox Anastomosis EDV 6.7 cm/s [facility] [employer] Work Phone: Left Prox Anastomosis PSV 60.2 cm/s [facility] [employer] Work Phone: Left Prox Outflow EDV 0.0 cm/s [facility] [employer] Work Phone: Left Prox Outflow PSV 55.9 cm/s [facility] [employer] Work Phone: Right RIMMA 0.93 [facility] [employer] Work Phone: Right arm BP 139 mmHg [facility] [employer] Work Phone: Right dorsalis pedis BP 148 mmHg S [facility] [employer] Work Phone: Right posterior tibial 140 mmHg [facility] [employer] Work Phone: No Panel Informationon 01-17 Right side findings: Resting RIMMA is 0.93. This is within the normal range. Left side findings: Resting RIMMA is 0.99. This is within the normal range. Unable to clearly identity left KARO stent due to highly calcific arterial saunders, , left KARO and EIA appear widely patent. Patent left fem-tibial BPG. RIMMA Right side findings: Normal resting RIMMA. Left side findings: Normal resting RIMMA. Lower Artery Bypass Graft Graft 1: left fem-tibial graft Shuttler Details A jimenez scale, color Doppler imaging and spectral Doppler analysis ultrasound was performed. During the study longitudinal and transverse views were obtained. Pulsed wave doppler and pulsed volume recording (PVR) was performed. The exam was performed with the patient in the supine position. Overall the study quality was adequate. Study was technically difficult due to: Unable to clearly identity left KARO stent due to highly calcific arterial saunders.. CV CPACS PET/CT Tumor Base -Thigh Ini ton 01-09-2024 PET/CT Tumor Base -Thigh Init [facility] Imaging Services [address] [place], [place] [id number] PET/CT Tumor Base -Thigh Init MR#: [id number] Acct: [id number] Name: LIDIA SINGH Rep #: [id number] : 1955 M 68 From: Mare Queen PCP: JS KeyesC Status: REG CLI Study: PET/CT Tumor Base -Thigh Init Date of Exam: Exam# [id number] Ordering Dr: Isaias Franz [place] [id number] EXAMINATION: FDG PET-CT INDICATIONS: A 68-year-old male with a history of pulmonary nodularity. COMPARISON EXAMINATION: CT of the chest report dated 12/19/23. INDEX LESION SIZE SUV INTERPRETATION Right upper lung field, right upper lobe 9.4 mm 6.7 Fulfills quantitative criteria for viable neoplasm. TECHNIQUE: Following the intravenous administration of 13.69 mCi of F-18 deoxyglucose via the right hand, multiplanar image acquisitions of the head, neck, chest, abdomen and pelvis to level of mid-thigh, lower extremities obtained at one hour post radiopharmaceutical administration contemporaneously interpreted with the current CT of the head, neck, chest, abdomen and pelvis to level of mid-thigh, lower extremities dated 01/09/[address] of the chest report dated 12/19/23 reveal: SERUM GLUCOSE LEVEL: 99 mg/dl. HEIGHT: 62 inches. WEIGHT: 141 lbs. FINDINGS: Head/Neck: There is no evidence of abnormal increased glucose metabolism in the pharyngeal mucosal space, parapharyngeal space, bilateral-lateral and anterior neck, hypopharynx and distribution of the laryngeal structures. The visualized portion of the cerebral cortical-subcortical structures demonstrate symmetric and preserved glucose metabolism. CHEST: Facilitated FDG concentration is defined in the right upper lung field, right upper lobe generating a calculated standard maximum uptake value of 6.7. The maximum axial diameter of the metabolic, morphologic abnormality is 9.[address] findings are as follows. Meticulous attention paid to the remaining bilateral hemithorax pulmonary parenchyma demonstrates no evidence of quantitative significant increased FDG uptake. There is atherosclerotic calcification defined in the thoracic aorta without evidence of dilatation-aneurysm formation. Coronary arterial calcification is observed. Bilateral axillary soft tissue demonstrates no evidence of increased radiopharmaceutical concentration. Abdomen/Pelvis: Normal physiologic distribution of the radiopharmaceutical is apparent in the hepatic (3.2) and splenic parenchyma, both renal units, bladder and visualized intestinal tract. Diffuse radiopharmaceutical concentration is noted in all four quadrants of the abdomen and pelvis. The abdomen and pelvis CT findings are as follows. There is atherosclerotic calcification defined in the abdominal aorta without evidence of dilatation-aneurysm formation. Abdominal-pelvic arterial calcification is defined. Right and left inguinal soft tissue densities are non-tracer avid. Skeletal: Degenerative changes are noted in the cervical, thoracic and lumbar spine. PET/PET/CT Tumor Base -Thigh Init IMPRESSION: 1. ABNORMAL EXAMINATION INDICATIVE OF MALIGNANT-VIABLE NEOPLASM. 2. Enhanced tracer uptake noted in the right upper lung field, right upper lobe fulfills quantitative criteria for viable neoplasia. Histopathologic analysis is recommended. 3. No other scintigraphic abnormalities are noted. Electronic Signature Mare Bourne D.O. Accurate Quantification of SUVs for this report are calculated using the exclusive [employer], (U.S. Patent No. [phone] patent [phone] ). Standardization and correction of the FDG SUV metric exclusively available with [employer] intellectual property, allow for vendor non-specific objective quantitative sequential FDG PET-CT comparison and otherwise unobtainable optimization of the sensitivity and specificity of the examination. [email or web address] Electronically Signed: Mare Bourne DO at 21:59 EDT , CC: DOT Stanford; Dr. Isaias Franz MD Plastics Bench Mechanic: Signed Normal [facility] No Panel Informationon 01-01 There is no interpretation needed for this exam. IMAGING Low Dose CT Lung Screeningon 12-19-[address] Lung Screening [facility] Imaging Services [address] [place] [address] Lung Screening MR#: [id number] Acct: [id number] Name: LIDIA SINGH Rep #: [id number] : 1955 M 68 From: Glenn Young MD PCP: DOT Keyes Status: REG CLI Study: Low Dose CT Lung Screening Date of Exam: 12/18 Exam# [id number] Ordering Dr: Isaias Franz MD [id number] EXAM: CT CHEST, LUNG CANCER SCREENING WITHOUT INTRAVENOUS CONTRAST CLINICAL INDICATION: history of nicotine dependence TECHNIQUE: Helically acquired images were obtained of the chest without intravenous contrast using low dose (LDCT) lung cancer screening protocol. This CT exam was performed using one or more of the following dose reduction techniques: automated exposure control, adjustment of the mA and/or kV according to patient size, and/or use of iterative reconstruction technique. COMPARISON: 04/30/2020 FINDINGS: LUNGS AND PLEURAL SPACES: There are is a slightly spiculated nodule in the right upper lobe on series 2 image 49 that measures 7 x 9 mm was not present on the previous exam. No pleural effusion or thickening. No pneumothorax. HEART: Unremarkable. Heart size is normal. No pericardial effusion. No significant coronary artery calcifications. MEDIASTINUM: Unremarkable. No mediastinal or hilar adenopathy. Esophagus is unremarkable. No hiatal hernia. THYROID: Unremarkable. No thyroid lesions. BONES/JOINTS: Unremarkable. No suspicious lytic or blastic abnormality. VASCULATURE: Unremarkable. Thoracic aorta is non-dilated. LYMPH NODES: Unremarkable. No enlarged lymph nodes. CT/Low Dose CT Lung Screening IMPRESSION: Slightly spiculated nodule in the right upper lobe which was not present on the previous exam. Lung-RADS score: 4B - Very Suspicious. Recommend chest CT with or without contrast, PET/CT and/or tissue sampling depending on the probability of malignancy and comorbidities. PET/CT may be used when there is a >=8 mm solid component. For new large nodules that develop on an annual repeat screening CT, a 1 month LDCT may be recommended to address potentially infectious or inflammatory conditions. Electronically Signed: Glenn Young MD at 0:08 EDT , CC: DOT Stanford; Dr. Isaias Franz MD Plastics Bench Mechanic: Signed Normal [facility] .Auto Diffon 12-15-2023 Basophil, Absolute 0.1 10 3/mcL Normal 0.0-0.2 [facility] ([place]) Comment on above: Performed By: #### F OL, B12 #### [place] [address] #### ANEU, CBC, ADIFF #### [address] [address] Basophils/100 WBC (Bld) 1.0 % Normal 0.0-2.5 [facility] ([place]) Comment on above: Performed By: #### F OL, B12 #### [place] [address] #### ANEU, CBC, ADIFF #### [address] [address] Eosinophil, Absolute 0.6 10 3/mcL High 0.0-0.4 [facility] ([place]) Comment on above: Performed By: #### F OL, B12 #### [place] [address] #### ANEU, CBC, ADIFF #### [address] [address] Eosinophils/100 WBC (Bld) 7.6 % High 0.0-7.0 [facility] ([place]) Comment on above: Performed By: #### F OL, B12 #### [place] [address] #### ANEU, CBC, ADIFF #### [address] [address] Lymphocyte, Absolute 2.5 10 3/mcL Normal 0.8-3.9 [facility] ([place]) Comment on above: Performed By: #### F OL, B12 #### [place] [address] #### ANEU, CBC, ADIFF #### [address] [address] Lymphocytes/100 WBC (Bld) 30.0 % Normal 10.0-50.0 [facility] ([place]) Comment on above: Performed By: #### F OL, B12 #### [place] [address] #### ANEU, CBC, ADIFF #### [address] [address] Monocyte, Absolute 0.4 10 3/mcL Normal 0.2-1.0 [facility] ([place]) Comment on above: Performed By: #### F OL, B12 #### [place] [address] #### ANEU, CBC, ADIFF #### [address] [address] Monocytes/100 WBC (Bld) 4.6 % Normal 1.7-13.0 [facility] ([place]) Comment on above: Performed By: #### F OL, B12 #### [place] [address] #### ANEU, CBC, ADIFF #### [address] [address] Neutrophils/100 WBC (Bld) 56.8 % Normal 37.0-80.0 [facility] ([place]) Comment on above: Performed By: #### F OL, B12 #### [place] [address] #### ANEU, CBC, ADIFF #### [address] [address] .GFRon 12-15-2023 GFR 73 ml/min/1.73sqm Normal [facility] ([place]) Comment on above: Result Comment: GFR Population mean for , Non- Americans Ages 20-29 = 116 mL/min/1.73 sq.m. Ages 30-39 = 107 mL/min/1.73 sq.m. Ages 40-49 = 99 mL/min/1.73 sq.m. Ages 50-59 = 93 mL/min/1.73 sq.m. Ages 60-69 = 85 mL/min/1.73 sq.m. Ages 70+ = 75 mL/min/1.73 sq.m. Chronic Kidney Disease: Less than 60 mL/min/1.73 square meters End Stage Renal Disease: Less than 15 mL/min/1.73 square meters Performed By: #### F OL, B12 #### [place] [id number] #### ANEU, CHRISTIANO, ADIFF #### [address] [address] GFR Non- 61 ml/min/1.73sqm Normal [facility] ([place]) Comment on above: Result Comment: GFR Population mean for , Non- Americans Ages 20-29 = 116 mL/min/1.73 sq.m. Ages 30-39 = 107 mL/min/1.73 sq.m. Ages 40-49 = 99 mL/min/1.73 sq.m. Ages 50-59 = 93 mL/min/1.73 sq.m. Ages 60-69 = 85 mL/min/1.73 sq.m. Ages 70+ = 75 mL/min/1.73 sq.m. Chronic Kidney Disease: Less than 60 mL/min/1.73 square meters End Stage Renal Disease: Less than 15 mL/min/1.73 square meters Performed By: #### F OL, B12 #### [place] [id number] #### ANEU, CBC, ADIFF #### [address] [address] .NEUABSon 12-15-2023 Neutrophil, Absolute 4.7 10 3/mcL Normal 2.9-6.2 [facility] ([place]) Comment on above: Performed By: #### F OL, B12 #### [place] [id number] #### ANEU, CBC, ADIFF #### [address] [address] CBCon 12-15-2023 Erythrocyte distribution width (RBC) [Ratio] 14.7 % High 11.5-14.5 [facility] ([place]) Comment on above: Performed By: #### F OL, B12 #### [place] [id number] #### ANEU, CBC, ADIFF #### [address] [address] Hematocrit (Bld) [Volume fraction] 36.4 % Low 42.0-52.0 [facility] ([place]) Comment on above: Performed By: #### F OL, B12 #### [place] [address] #### ANEU, CBC, ADIFF #### [address] [address] Hgb 12.3 G/dL Low 14.0-18.0 [facility] ([place]) Comment on above: Performed By: #### F OL, B12 #### [place] [address] #### ANEU, CBC, ADIFF #### [address] [address] MCH (RBC) [Entitic mass] 32.1 pg High 27.0-31.2 [facility] ([place]) Comment on above: Performed By: #### F OL, B12 #### [place] [address] #### ANEU, CBC, ADIFF #### [address] [address] MCHC 33.9 G/dL Normal 31.8-35.4 [facility] ([place]) Comment on above: Performed By: #### F OL, B12 #### [address] [address] #### ANEU, CBC, ADIFF #### [address] [address] MCV (RBC) [Entitic vol] 94.8 fL High 80.0-94.0 [facility] ([place]) Comment on above: Performed By: #### F OL, B12 #### [place] [address] #### ANEU, CBC, ADIFF #### [address] [address] Platelet 214 10 3/mcL Normal 130-400 [facility] ([place]) Comment on above: Performed By: #### F OL, B12 #### [place] [address] #### ANEU, CBC, ADIFF #### [address] [address] Platelet mean volume (Bld) [Entitic vol] 10.4 fL Normal 7.4-10.4 [facility] ([place]) Comment on above: Performed By: #### F OL, B12 #### [place] [address] #### ANEU, CBC, ADIFF #### [address] [address] RBC 3.83 10 6/mcL Low 4.04-6.13 [facility] ([place]) Comment on above: Performed By: #### F OL, B12 #### [address] [address] #### ANEU, CBC, ADIFF #### [address] [address] WBC 8.2 10 3/mcL Normal 4.6-10.8 [facility] ([place]) Comment on above: Performed By: #### F OL, B12 #### [place] [address] #### ANEU, CBC, ADIFF #### [address] [address] CMPon 12-15-2023 Albumin Level 4.3 G/dL Normal 3.4-4.8 [facility] ([place]) Comment on above: Performed By: #### F OL, B12 #### [place] [address] #### ANEU, CBC, ADIFF #### [address] [address] Albumin/Globulin [Mass ratio] 1.5 {ratio} Normal 1.1-2.5 [facility] ([place]) Comment on above: Performed By: #### F OL, B12 #### [place] [address] #### ANEU, CBC, ADIFF #### [address] [address] ALP [Catalytic activity/Vol] 91 U/L Normal 40-135 [facility] ([place]) Comment on above: Performed By: #### F OL, B12 #### [place] [address] #### ANEU, CBC, ADIFF #### [address] [address] ALT [Catalytic activity/Vol] 42 U/L Normal 16-63 [facility] ([place]) Comment on above: Performed By: #### F OL, B12 #### [place] [address] #### ANEU, CBC, ADIFF #### [address] [address] AST [Catalytic activity/Vol] 16 U/L Normal 10-40 [facility] ([place]) Comment on above: Performed By: #### F OL, B12 #### [place] [address] #### ANEU, CBC, ADIFF #### [address] [address] Bili Total 0.6 mg/dL Normal 0.2-1.0 [facility] ([place]) Comment on above: Result Comment: Use of this assay is not recommended for patients undergoing treatment with eltrombopag due to the potential for falsely elevated results. Performed By: #### F OL, B12 #### [place] [address] #### ANEU, CBC, ADIFF #### [address] [address] BUN/Creatinine Ratio 18 ratio Normal 7-27 [facility] ([place]) Comment on above: Performed By: #### F OL, B12 #### [place] [address] #### ANEU, CBC, ADIFF #### [address] [address] Calcium [Mass/Vol] 8.9 mg/dL Normal 8.4-10.2 [facility] ([place]) Comment on above: Performed By: #### F OL, B12 #### [place] [address] #### ANEU, CBC, ADIFF #### [address] [address] Chloride [Moles/Vol] 102 mmol/L Normal 98-107 [facility] ([place]) Comment on above: Performed By: #### F OL, B12 #### [place] [address] #### ANEU, CBC, ADIFF #### [address] [address] CO2 [Moles/Vol] 28 mmol/L Normal 23-31 [facility] ([place]) Comment on above: Performed By: #### F OL, B12 #### [place] [address] #### ANEU, CBC, ADIFF #### [address] [address] Creatinine [Mass/Vol] 1.19 mg/dL Normal 0.70-1.30 [facility] ([place]) Comment on above: Performed By: #### F OL, B12 #### [place] [address] #### ANEU, CBC, ADIFF #### [address] [address] Electrolyte Balance 9.0 mEq/L Normal 4.0-15.0 [facility] ([place]) Comment on above: Performed By: #### F OL, B12 #### [address] [address] #### ANEU, CBC, ADIFF #### [address] [address] Globulin 2.9 G/dL Normal [facility] ([place]) Comment on above: Performed By: #### F OL, B12 #### [place] [address] #### ANEU, CBC, ADIFF #### [address] [address] Glucose [Mass/Vol] 98 mg/dL Normal 80-115 [facility] ([place]) Comment on above: Performed By: #### F OL, B12 #### [place] [address] #### ANEU, CBC, ADIFF #### [address] [address] Potassium [Moles/Vol] 4.8 mmol/L Normal 3.5-5.1 [facility] ([place]) Comment on above: Performed By: #### F OL, B12 #### [place] [address] #### ANEU, CBC, ADIFF #### [address] [address] Sodium [Moles/Vol] 139 mmol/L Normal 136-145 [facility] ([place]) Comment on above: Performed By: #### F OL, B12 #### [place] [address] #### ANEU, CBC, ADIFF #### [address] [address] Total Protein 7.2 G/dL Normal 6.4-8.2 [facility] ([place]) Comment on above: Performed By: #### F OL, B12 #### [address] [address] #### ANEU, CBC, ADIFF #### [place] [address] [place], [place] [address] Urea nitrogen [Mass/Vol] 22 mg/dL High 7-18 [facility] ([place]) Comment on above: Performed By: #### F OL, B12 #### [address] [address] #### ANEU, CBC, ADIFF #### [place] [address] [place], [place] [address] LABORATORYOrdered By: SYSTEM SYSTEM on 12-15-2023 Prostate specific Ag [Mass/Vol] ng/mL Normal 0.00 - 4.00 ng/mL AO ADM SS Albumin BCP dye [Mass/Vol] 4.3 G/dL Normal 3.4 - 4.8 G/dL AO ADM SS Albumin/Globulin [Mass ratio] 1.5 {ratio} Normal 1.1 - 2.5 ratio AO ADM SS ALP [Catalytic activity/Vol] 91 U/L Normal 40 - 135 U/L AO ADM SS ALT With P-5'-P [Catalytic activity/Vol] 42 U/L Normal 16 - 63 U/L AO ADM SS AST With P-5'-P [Catalytic activity/Vol] 16 U/L Normal 10 - 40 U/L AO ADM SS Basophil, Absolute 0.1 103/mcL Normal 0.0 - 0.2 10^3/mcL AO Workflow SS Basophils/100 WBC (Bld) 1.0 % Normal 0.0 - 2.5 % AO Workflow SS Bilirubin [Mass/Vol] 0.6 mg/dL Normal 0.2 - 1 .0 mg/dL AO ADM SS Comment on above: Interpretive Data: U se of this assay is not recommended for patients undergoing treatment with eltrombopag due to the potential for falsely elevated results. Calcium [Mass/Vol] 8.9 mg/dL Normal 8.4 - 10. 2 mg/dL AO ADM SS Chloride [Moles/Vol] 102 mmol/L Normal 98 - 10 7 mmol/L AO ADM SS CO2 [Moles/Vol] 28 mmol/L Normal 23 - 31 mmol/L AO ADM SS Creatinine [Mass/Vol] 1.19 mg/dL Normal 0.70 - 1.30 mg/dL AO ADM SS Electrolyte Balance 9.0 mEq/L Normal 4.0 - 15 .0 mEq/L AO ADM SS Eosinophil, Absolute 0.6 103/mcL High 0.0 - 0 .4 10^3/mcL AO Workflow SS Eosinophils/100 WBC (Bld) 7.6 % High 0.0 - 7.0 % AO Workflow SS Erythrocyte distribution width (RBC) [Ratio] 14.7 % High 11.5 - 14.5 % AO Workflow SS GFR/1.73 sq M.predicted among blacks MDRD (S/P/Bld) [Vol rate/Area] 73 ml/min/1.73sqm Invalid Interpretation Code AO Chemistry S Comment on above: Interpretive Data: GFR Population mean for , Non- Americans Ages 20-29 = 116 mL/min/1.73 sq.m. Ages 30-39 = 107 mL/min/1.73 sq.m. Ages 40-49 = 99 mL/min/1.73 sq.m. Ages 50-59 = 93 mL/min/1.73 sq.m. Ages 60-69 = 85 mL/min/1.73 sq.m. Ages 70+ = 75 mL/min/1.73 sq.m. Chronic Kidney Disease: Less than 60 mL/min/1.73 square meters End Stage Renal Disease: Less than 15 mL/min/1.73 square meters GFR/1.73 sq M.predicted among non-blacks MDRD (S/P/Bld) [Vol rate/Area] 61 ml/min/1.73sqm Invalid Interpretation Code AO Chemistry S Comment on above: Interpretive Data: GFR Population mean for , Non- Americans Ages 20-29 = 116 mL/min/1.73 sq.m. Ages 30-39 = 107 mL/min/1.73 sq.m. Ages 40-49 = 99 mL/min/1.73 sq.m. Ages 50-59 = 93 mL/min/1.73 sq.m. Ages 60-69 = 85 mL/min/1.73 sq.m. Ages 70+ = 75 mL/min/1.73 sq.m. Chronic Kidney Disease: Less than 60 mL/min/1.73 square meters End Stage Renal Disease: Less than 15 mL/min/1.73 square meters Globulin 2.9 G/dL Invalid Interpretation Code AO ADM SS Glucose [Mass/Vol] 98 mg/dL Normal 80 - 115 mg/dL AO ADM SS Hematocrit (Bld) [Volume fraction] 36.4 % Low 42.0 - 52.0 % AO Workflow SS Hemoglobin (Bld) [Mass/Vol] 12.3 G/dL Low 14.0 - 18.0 G/dL AO Workflow SS Lymphocyte, Absolute 2.5 103/mcL Normal 0.8 - 3 .9 10^3/mcL AO Workflow SS Lymphocytes/100 WBC (Bld) 30.0 % Normal 10.0 - 50.0 % AO Workflow SS MCH (RBC) [Entitic mass] 32.1 pg High 27.0 - 31.2 pg AO Workflow SS MCHC 33.9 G/dL Normal 31.8 - 35.4 G/dL AO Workflow SS MCV (RBC) [Entitic vol] 94.8 fL High 80.0 - 94.0 fL AO Workflow SS Monocyte, Absolute 0.4 103/mcL Normal 0.2 - 1.0 10^3/mcL AO Workflow SS Monocytes/100 WBC (Bld) 4.6 % Normal 1.7 - 13.0 % AO Workflow SS Neutrophil, Absolute 4.7 103/mcL Normal 2.9 - 6 .2 10^3/mcL AO Workflow SS Neutrophils/100 WBC (Bld) 56.8 % Normal 37.0 - 80.0 % AO Workflow SS Platelet mean volume (Bld) [Entitic vol] 10.4 fL Normal 7.4 - 10.4 fL AO Workflow SS Platelets (Bld) [#/Vol] 214 103/mcL Normal 130 - 400 10^3/mcL AO Workflow SS Potassium [Moles/Vol] 4.8 mmol/L Normal 3.5 - 5.1 mmol/L AO ADM SS Protein [Mass/Vol] 7.2 G/dL Normal 6.4 - 8.2 G/dL AO ADM SS RBC (Bld) [#/Vol] 3.83 106/mcL Low 4.04 - 6.1 3 10^6/mcL AO Workflow SS Sodium [Moles/Vol] 139 mmol/L Normal 136 - 145 mmol/L AO ADM SS Urea nitrogen [Mass/Vol] 22 mg/dL High 7 - 18 mg/dL AO ADM SS Urea nitrogen/Creatinine [Mass ratio] 18 ratio Normal 7 - 27 ratio AO ADM SS WBC (Bld) [#/Vol] 8.2 103/mcL Normal 4.6 - 10.8 10^3/mcL AO Workflow SS LABORATORYOrdered By: Carole Blair on 12-15-2023 Cholesterol [Mass/Vol] 143 mg/dL Normal 0 - 2 00 mg/dL AO ADM SS Comment on above: Interpretive Data: C holesterol Reference Interval: Less than 200 Desirable 200-239 Borderline high risk 240 and above High risk Cholesterol in HDL [Mass/Vol] 61 mg/dL High 40 - 60 mg/dL AO ADM SS Cholesterol in LDL [Mass/Vol] 72 mg/dL Normal 0 - 130 mg/dL AO ADM SS Triglyceride [Mass/Vol] 49 mg/dL Normal 0 - 150 mg/dL AO ADM SS Comment on above: Interpretive Data: T riglyceride Reference Interval: Less than 150 Normal 150-199 Borderline high risk 200-499 High risk 500 or higher Very high risk LIPIDon 12-15-2023 Cholesterol [Mass/Vol] 143 mg/dL Normal 0-200 [facility] ([place]) Comment on above: Result Comment: Chol esterol Reference Interval: Less than 200 Desirable 200-239 Borderline high risk 240 and above High risk Performed By: #### F OL, B12 #### [place] [address] #### ANEU, CBC, ADIFF #### [address] [address] Cholesterol in HDL [Mass/Vol] 61 mg/dL High 40-60 [facility] ([place]) Comment on above: Performed By: #### F OL, B12 #### [address] [address] #### ANEU, CBC, ADIFF #### [address] [address] Cholesterol in LDL [Mass/Vol] 72 mg/dL Normal 0-130 [facility] ([place]) Comment on above: Performed By: #### F OL, B12 #### [place] [id number] #### ANEU, CBC, ADIFF #### [place] [address] [place], [place] [address] Triglyceride [Mass/Vol] 49 mg/dL Normal 0-150 [facility] ([place]) Comment on above: Result Comment: Trig lyceride Reference Interval: Less than 150 Normal 150-199 Borderline high risk 200-499 High risk 500 or higher Very high risk Performed By: #### F OL, B12 #### [facility] [address] [place] [address] #### ANEU, CBC, ADIFF #### [place] [address] [place], [place] [address] PSAon 12-15-2023 Prostate Specific Antigen <0.05 Normal 0.00-4.00 [facility] ([place]) Comment on above: Performed By: #### P SA #### [place] [id number] [place], [place] [address] Test Authorization (VR1)on 12-11-2023 Client Contact: ELODIA CHIRINOS [facility] Comment [facility] Comment on above: Please have the [facility] physician or his or her authorized medical billing representative sign a copy of this report and promptly return it by faxing it to: [phone] or by returning the form to your high school librarian. Reference Lab Test ID 7788 [facility] Reference Lab Test Name ABO/RH S [facility] Report Always Message Signature [facility] Comment on above: The laboratory testing on this patient was verbally requested or confirmed by the ordering physician or his or her authorized medical billing representative after contact with an employee of [employer]. Federal regulations require that we maintain on file written authorization for all laboratory testing. Accordingly we are asking that the ordering physician or his or her authorized medical billing representative sign a copy of this report and promptly return it to the client support professional. Signature: [facility] No Panel InformationOrdered By: Long Shah on 11-15-2023 Left RIMMA 0.75 [employer] Work Phone: Left arm BP 154 mmHg [employer] Work Phone: Left Dist Anastomosis EDV 6.0 cm/s [facility] Work Phone: Left Dist Anastomosis PSV 29.1 cm/s [facility] Work Phone: Left Dist Outflow EDV 2.6 cm/s [facility] Work Phone: Left Dist Outflow PSV 36.2 cm/s [facility] Work Phone: Left dorsalis pedis BP 111 mmHg [facility] Work Phone: Left Graft 1 Left femoral-tibial bypass graft [facility] Work Phone: Left Inflow Artery EDV 0.0 cm/s [facility] Work Phone: Left Inflow Artery PSV 85.3 cm/s [facility] Work Phone: Left Mid Outflow EDV 0.0 cm/s [facility] Work Phone: Left Mid Outflow PSV 48.4 cm/s [facility] Work Phone: Left Outflow Vessel EDV 6.5 cm/s [facility] Work Phone: Left Outflow Vessel PSV 59.1 cm/s S [facility] Work Phone: Left posterior tibial 116 mmHg [facility] Work Phone: Left Prox Anastomosis EDV 4.3 cm/s [facility] Work Phone: Left Prox Anastomosis PSV 65.7 cm/s [facility] Work Phone: Left Prox Outflow EDV 4.2 cm/s [facility] Work Phone: Left Prox Outflow PSV 37.2 cm/s [facility] Work Phone: Right RIMMA 1.03 [facility] Work Phone: Right arm BP 146 mmHg [facility] Work Phone: Right Dist Anastomosis EDV 9.7 cm/s [facility] Work Phone: Right Dist Anastomosis PSV 89.6 cm/s [facility] Work Phone: Right Dist Outflow EDV 0.0 cm/s [facility] Work Phone: Right Dist Outflow PSV 74.3 cm/s [facility] Work Phone: Right dorsalis pedis BP 159 mmHg S [facility] [employer] Work Phone: Right Graft 1 Right femoral-tibial bypass graft [facility] [employer] Work Phone: Right Inflow Artery EDV 10.1 cm/s S [facility] [employer] Work Phone: Right Inflow Artery PSV 118.5 cm/s S [facility] [employer] Work Phone: Right Mid Outflow EDV 0.0 cm/s [facility] [employer] Work Phone: Right Mid Outflow PSV 79.4 cm/s [facility] [employer] Work Phone: Right Outflow Vessel EDV 6.4 cm/s [facility] [employer] Work Phone: Right Outflow Vessel PSV 72.5 cm/s [facility] [employer] Work Phone: Right posterior tibial 137 mmHg [facility] [employer] Work Phone: Right Prox Anastomosis EDV 10.7 cm/s [facility] [employer] Work Phone: Right Prox Anastomosis PSV 76.9 cm/s [facility] [employer] Work Phone: Right Prox Outflow EDV 0.0 cm/s [facility] [employer] Work Phone: Right Prox Outflow PSV 61.6 cm/s [facility] [employer] Work Phone: No Panel Informationon 11-14 Right side findings: Resting RIMMA is 1.03. This is within the normal range. Turbulent flow in the right inflow artery, cannot rule out more proximal stenosis. Left side findings: Resting RIMMA is 0.75. This is mildly decreased. Decreased from previous exam. Turbulent flow in the left inflow artery, cannot rule out more proximal stenosis. Low velocities noted in the left graft. RIMMA Right side findings: Normal resting RIMMA. Left side findings: Mildly decreased resting RIMMA. Right PVR waveforms: Normal - ankle. 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 Comparison Study The exam was compared to the study performed on 10/24/2022. Right side findings: Resting RIMMA is 0.99. This is within the normal range. Patent right femoral to tibial arterial bypass graft with elevated velocities at the inflow. Left side findings: Resting RIMMA is 0.93. This is within the normal range. Patent left femoral to popliteal arterial bypass graft with normal velocities. Lower Artery Bypass Graft Graft 1: right fem-tibial graft Graft inflow - patent. Proximal anastomosis - patent. Proximal graft - patent. Mid graft - patent. Distal graft - patent. Distal anastomosis - patent. Graft outflow - patent. Mild heterogenous calcific plaque in the inflow and outflow segments. Graft 2: left fem-tibial graft Graft inflow - patent. Proximal anastomosis - patent. Proximal graft - patent. Mid graft - patent. Distal graft - patent. Distal anastomosis - patent. Graft outflow - patent. Mild heterogenous calcific plaque in the inflow and outflow segments. Turbulent flow in the right inflow artery, cannot rule out more proximal stenosis. Turbulent flow in the left inflow artery, cannot rule out more proximal stenosis. Low velocities noted in the left graft. Shuttler Details A jimenez scale, color Doppler imaging and spectral Doppler analysis ultrasound was performed. During the study longitudinal and transverse views were obtained. Continuous wave doppler, pulsed wave doppler and pulsed volume recording (PVR) was performed. The exam was performed with the patient in the supine position. Overall the study quality was adequate. [facility] Final Surgical Pathology Rep [facility] 07-27-2023 Final Surgical Pathology Report . Pathology Reports Accession: Collected Date/Time: Received Date/Time: Pathologist: [id number] 07/26/2023 08:31 EST 07/26/2023 14:12 MD MARE JACOBSEN Final Surgical Pathology Report DIAGNOSIS: RECTUM, BIOPSY: - HYPERPLASTIC POLYP CLINICAL INFORMATION: PROCEDURE: COLONOSCOPY PREOPERATIVE DIAGNOSIS: SCREENING POSTOPERATIVE DIAGNOSIS: SCREENING SPECIMEN: A POLYP, COLORECTAL RECTAL GROSS DESCRIPTION: All parts labelled with patient name and [id number] Received in formalin labelled "rectal polyps" Is 1 talbert-pink tissue fragment measuring 0.9 x 0.5 cm greatest dimension TS-1 Magaly Chun, Grossing Government Operations Consultant/ Dr. Andre Dickens, Pathologist Dictated by Magaly Chun MICROSCOPIC DESCRIPTION: The microscopic examination is performed, except in the case of Gross Only. Electronically Signed by Pathology Report verified by [facility] MARE MADDEN MD Sign out Date: 07/27/2023 09:32 Performing Lab: [facility], [facility] [address] [place] [address] Pathology Dept Disclaimer If ancillary studies were utilized, the following Laboratory Developed Test (LDT) disclaimer will apply: Under CLIA requirements, [facility] is qualified to perform high complexity testing. For all ancillary stains, positive and negative controls stain appropriately. Performance characteristics of immunohistochemical and chromogenic in-situ hybridization tests have been determined by [facility]. These tests are used for clinical purposes, They should not be regarded as investigational or for research. Normal [facility] ([place]) Basophil percentageOrdered B y: Isaias Franz on 06-07-2023 Basophil percentage 2.7 mg/dL 2.5-4.9 [facility] Chloride [Moles/Vol] 109 mmol/L 98-107 [facility] Glucose [Mass/Vol] 107 mg/dL 74-106 [facility] Comment on above: Fasting Glucose resu lt from 100 to 125 mg/dL suggests IMPAIRED HOMEOSTASIS per A.D.A. criteria. Potassium [Moles/Vol] 4.1 mmol/L 3.5-5.1 [facility] [place] Sodium [Moles/Vol] 138 mmol/L 136-145 [facility] Laboratory - Chemistry and C hemistry - challengeOrdered By: Isaias Franz on 06-07-2023 CO2 [Moles/Vol] 24.0 mmol/L 21.0-32.0 [facility] Urea nitrogen/Creatinine [Mass ratio] 20.9 mg/mg - [facility] No Panel InformationOrdered By: Isaias Franz on 06-07-2023 Estimated GFR (MDRD) Amer 81 mL/min >60 [facility] Comment on above: GFR Calc Estimated GFR (MDRD) Non-Af Amer 67 mL/min >60 [facility] Comment on above: Non- GFR Calc Serum or plasma albumin ariela urement (mass/volume)Ordered By: Isaias Franz on 06-07-2023 Albumin [Mass/Vol] 3.9 g/dL 3.2-5.0 [facility] Serum or plasma calcium ariela urement (mass/volume)Ordered By: Isaias Franz on 06-07-2023 Calcium [Mass/Vol] 9.5 mg/dL 8.5-10.1 [facility] Serum or plasma creatinine m easurement (mass/volume)Ordered By: Isaias Franz on 06-07-2023 Creatinine [Mass/Vol] 1.15 mg/dL 0.70-1.30 [facility] [place] Comment on above: The validity of the calculated GFR & GFRAA in patients over 70 years has not been determined. Clinical correlation is essential. Serum or plasma urea nitroge n measurement (mass/volume)Ordered By: Isaias Franz on 06-07-2023 Urea nitrogen [Mass/Vol] 24 mg/dL 7-18 [facility] XR Lumbar spine 3 Viewson IMPRESSION: Lumbar spine degenerative changes with multilevel disc space narrowing. Plastics Bench Mechanic: HETAL Transcribe Date/Time: Mar 14 2023 4:22P Dictated by : DARON MCLEAN MD This examination was interpreted and the report reviewed and electronically signed by: DARON MCLEAN MD on Mar 14 2023 4:26PM [facility] DIVISION OF RADIOLOGY * * *Final Report* * * DATE OF EXAM: Mar 14 2023 4:21PM WOX [id number] - XR LUMBAR 3V AP/LAT/L5-S1 / PROCEDURE REASON: Acute left-sided low back pain without sciatica * * * * Physician Interpretation * * * * EXAM TITLE: XR LUMBAR 3V AP/LAT/L5-S1 EXAM DATE/TIME: 03/14/2023 4:21 PM COMPARISON: X-ray lumbar spine on 10/31/2016 CLINICAL INDICATION/HISTORY: Low back pain. TECHNIQUE: AP, lateral and cone down lateral views of the lumbar spine are presented. FINDINGS: There are five [id number] lumbar vertebrae. No acute fractures demonstrated. There is grade 1 L2 on L3 and L3 on L4 retrolisthesis. Grade 1 L5 on S1 anterolisthesis is also demonstrated. There is L2-3, L3-4 and L4-5 disc space narrowing. There is moderate osteophyte formation, with facet arthrosis. Probably L4 and L5 laminectomy. Others: There are vascular calcifications. DIVISION OF RADIOLOGY Provider, Suzette Natarajan - 03/14/2023 * * *Final Report* * * DATE OF EXAM: Mar 14 2023 4:21PM WOX 5228 - XR LUMBAR 3V AP/LAT/L5-S1 / PROCEDURE REASON: Acute left-sided low back pain without sciatica * * * * Physician Interpretation * * * * EXAM TITLE: XR LUMBAR 3V AP/LAT/L5-S1 EXAM DATE/TIME: 03/14/2023 4:21 PM COMPARISON: X-ray lumbar spine on 10/31/2016 CLINICAL INDICATION/HISTORY: Low back pain. TECHNIQUE: AP, lateral and cone down lateral views of the lumbar spine are presented. FINDINGS: There are five [id number] lumbar vertebrae. No acute fractures demonstrated. There is grade 1 L2 on L3 and L3 on L4 retrolisthesis. Grade 1 L5 on S1 anterolisthesis is also demonstrated. There is L2-3, L3-4 and L4-5 disc space narrowing. There is moderate osteophyte formation, with facet arthrosis. Probably L4 and L5 laminectomy. Others: There are vascular calcifications. IMPRESSION IMPRESSION: Lumbar spine degenerative changes with multilevel disc space narrowing. Plastics Bench Mechanic: PSCB Transcribe Date/Time: Mar 14 2023 4:22P Dictated by : DARON MCLEAN MD This examination was interpreted and the report reviewed and electronically signed by: DARON MCLEAN MD on Mar 14 2023 4:26PM EST [facility] Radiology Study observation (narrative) [facility] XR Lumbar spine 3 ViewsOrder ed By: Ccf Provider on 03-14-2023 [facility] No Panel InformationOrdered By: Long Shah on 10-24-2022 Left [facility]IMMA 0.93 [facility]: Left arm BP 137 [facility] Work Phone: Left Dist Anastomosis EDV 0.0 cm/s [facility] Work Phone: Left Dist Anastomosis PSV 36.0 cm/s [facility] Work Phone: Left Dist Outflow EDV 0.0 cm/s [facility] [employer] Work Phone: Left Dist Outflow PSV 40.3 cm/s [facility] Work Phone: Left dorsalis pedis BP 120 mmHg [facility] Work Phone: Left Graft 1 Left Fem - Pop arter y bypass graft [facility] Work Phone: Left Inflow Artery EDV 0.0 cm/s [facility] Work Phone: Left Inflow Artery PSV 136.9 cm/s [facility] Work Phone: Left Mid Outflow EDV 0.0 cm/s [facility] Work Phone: Left Mid Outflow PSV 39.2 cm/s [facility] Work Phone: Left Outflow Vessel EDV 0.0 cm/s S [facility] Work Phone: Left Outflow Vessel PSV 56.7 cm/s S [facility] Work Phone: Left posterior tibial 127 mmHg [facility] Work Phone: Left Prox Anastomosis EDV 0.0 cm/s [facility] Work Phone: Left Prox Anastomosis PSV 57.8 cm/s [facility] Work Phone: Left Prox Outflow EDV 0.0 cm/s [facility] Work Phone: Left Prox Outflow PSV 44.7 cm/s [facility] Work Phone: Right RIMMA 0.99 [facility] Work Phone: Right arm BP 133 mmHg [facility] Work Phone: Right Dist Anastomosis EDV 0.0 cm/s [facility] Work Phone: Right Dist Anastomosis PSV 85.0 cm/s [facility] Work Phone: Right Dist Outflow EDV 0.0 cm/s [facility] Work Phone: Right Dist Outflow PSV 69.1 cm/s [facility] Work Phone: Right dorsalis pedis BP 132 mmHg [facility] Work Phone: Right Graft 1 Right Fem - Tibial artery bypass graft [facility] Work Phone: Right Inflow Artery EDV 2.4 cm/s S [facility] [employer] Work Phone: Right Inflow Artery PSV 211.8 cm/s S [facility] [employer] Work Phone: Right Mid Outflow EDV 0.0 cm/s [facility] [employer] Work Phone: Right Mid Outflow PSV 65.9 cm/s [facility] [employer] Work Phone: Right Outflow Vessel EDV 0.0 cm/s [facility] [employer] Work Phone: Right Outflow Vessel PSV 63.4 cm/s [facility] [employer] Work Phone: Right posterior tibial 136 mmHg [facility] [employer] Work Phone: Right Prox Anastomosis EDV 0.0 cm/s [facility] [employer] Work Phone: Right Prox Anastomosis PSV 120.5 cm/s [facility] [employer] Work Phone: Right Prox Outflow EDV 0.0 cm/s [facility] [employer] Work Phone: Right Prox Outflow PSV 38.6 cm/s [facility] [employer] Work Phone: No Panel Informationon 10-24 Right side findings: Resting RIMMA is 0.99. This is within the normal range. Patent right femoral to tibial arterial bypass graft with elevated velocities at the inflow. Left side findings: Resting RIMMA is 0.93. This is within the normal range. Patent left femoral to popliteal arterial bypass graft with normal velocities. RIMMA Right side findings: Normal resting RIMMA. Left side findings: Normal resting RIMMA. Right PVR waveforms: Normal - ankle. Left PVR waveforms: Normal - ankle. Comparison Study The exam was compared to the study performed on 04/22/2022. Today's velocity at the right fem to tibial bypass inflow was lower at 211 cm/s, as compared to the previous exam velocities of 258 cm/s. Unable to match previous exam's velocity. Lower Artery Bypass Graft Graft 1: right fem-tibial graft Graft inflow - patent and multiphasic Doppler waveforms. Proximal anastomosis - patent and multiphasic Doppler waveforms. Proximal graft - patent and multiphasic Doppler waveforms. Mid graft - patent and multiphasic Doppler waveforms. Distal graft - patent and multiphasic Doppler waveforms. Distal anastomosis - patent and multiphasic Doppler waveforms. Graft outflow - patent and multiphasic Doppler waveforms. Moderate plaque in the inflow segment. Graft 2: left fem-pop graft Graft inflow - patent and multiphasic Doppler waveforms. Proximal anastomosis - patent and multiphasic Doppler waveforms. Proximal graft - patent and multiphasic Doppler waveforms. Mid graft - patent and multiphasic Doppler waveforms. Distal graft - patent and multiphasic Doppler waveforms. Distal anastomosis - patent and multiphasic Doppler waveforms. Graft outflow - patent and multiphasic Doppler waveforms. Unable to match the previous exams velocities in the inflow on the right fem - tibial artery bypass graft. Shuttler Details A jimenez scale, color Doppler imaging and spectral Doppler analysis ultrasound was performed. During the study longitudinal and transverse views were obtained. Pulsed wave doppler and pulsed volume recording (PVR) was performed. The exam was performed with the patient in the supine position. Overall the study quality was adequate. CV CPACS LABORATORYOrdered By: Stefanie Garcia on 09-17-2022 Cholesterol [Mass/Vol] 123 mg/dL Invalid Interpretation Code 0 - 200 mg/dL AO ADM SS Cholesterol in HDL [Mass/Vol] 54 mg/dL Invalid Interpretation Code 40 - 60 mg/dL AO ADM SS Cholesterol in LDL [Mass/Vol] 57 mg/dL Invalid Interpretation Code 0 - 130 mg/dL AO ADM SS Triglyceride [Mass/Vol] 62 mg/dL Invalid Interpretation Code 0 - 150 mg/dL AO ADM SS LABORATORYOrdered By: Celeste Ruiz on 09-17-2022 HCV Ab IA Ql Non-Reactive (09/17/22 8:05 AM) Invalid Interpretation Code Non-Reactiv e AH ADM SS HCV Ab IA Ql Nonreactive: Samples with a value < 0.80 are considered nonreactive (negative) for antibodies to HCV.A negative test result does not exclude the possibility of exposure to or infection with HCV. HCV antibodies may be undetectable in some stages of the infection and in some clinical conditions. Invalid Interpretation Code AH Chemistry S LABORATORYOrdered By: [employer] on 09-17-2022 Prostate specific Ag [Mass/Vol] ng/mL Invalid Interpretation Code 0.00 - 4.00 ng/mL AO ADM SS LABORATORYOrdered By: Nubia Solis on 08-14-2022 Basophil, Absolute 0.0 103/mcL Invalid Interpretation Code 0.0 - 0.2 10^3/mcL AO Workflow SS Basophils/100 WBC (Bld) 0.2 % Invalid Interpretation Code 0.0 - 2.5 % AO Workflow SS Eosinophil, Absolute 0.9 103/mcL Invalid Interpretation Code 0.0 - 0.4 10^3/mcL AO Workflow SS Eosinophils/100 WBC (Bld) 8.5 % Invalid Interpretation Code 0.0 - 7.0 % AO Workflow SS Erythrocyte distribution width (RBC) [Ratio] 14.2 % Invalid Interpretation Code 11.5 - 14.5 % AO Workflow SS Hematocrit (Bld) [Volume fraction] 42.1 % Invalid Interpretation Code 42.0 - 52.0 % AO Workflow SS Hemoglobin (Bld) [Mass/Vol] 14.4 G/dL Invalid Interpretation Code 14.0 - 18.0 G/dL AO Workflow SS Lymphocyte, Absolute 3.7 103/mcL Invalid Interpretation Code 0.8 - 3.9 10^3/mcL AO Workflow SS Lymphocytes/100 WBC (Bld) 34.8 % Invalid Interpretation Code 10.0 - 50.0 % AO Workflow SS MCH (RBC) [Entitic mass] 31.8 pg Invalid Interpretation Code 27.0 - 31.2 pg AO Workflow SS MCHC 34.2 G/dL Invalid Interpretation Code 31.8 - 35.4 G/dL AO Workflow SS MCV (RBC) [Entitic vol] 93.2 fL Invalid Interpretation Code 80.0 - 94.0 fL AO Workflow SS Monocyte distribution width Auto (Bld) [Entitic vol] 17.14 Invalid Interpretation Code 0.00 - 20.00 AO Workflow SS Comment on above: Result Comment: For ED adult patients suspected of sepsis, MDW<=20.0 does not rule out sepsis or risk of sepsis Monocyte, Absolute 0.7 103/mcL Invalid Interpretation Code 0.2 - 1.0 10^3/mcL AO Workflow SS Monocytes/100 WBC (Bld) 6.8 % Invalid Interpretation Code 1.7 - 13.0 % AO Workflow SS Neutrophil, Absolute 5.3 103/mcL Invalid Interpretation Code 2.9 - 6.2 10^3/mcL AO Workflow SS Neutrophils/100 WBC (Bld) 49.7 % Invalid Interpretation Code 37.0 - 80.0 % AO Workflow SS Platelet mean volume (Bld) [Entitic vol] 9.6 fL Invalid Interpretation Code 7.4 - 10.4 fL AO Workflow SS Platelets (Bld) [#/Vol] 241 103/mcL Invalid Interpretation Code 130 - 400 10^3/mcL AO Workflow SS RBC (Bld) [#/Vol] 4.52 106/mcL Invalid Interpretation Code 4.04 - 6.13 10^6/mcL AO Workflow SS WBC (Bld) [#/Vol] 10.6 103/mcL Invalid Interpretation Code 4.6 - 10.8 10^3/mcL AO Workflow SS LABORATORYOrdered By: [employer] on 08-14-2022 Calcium [Mass/Vol] 9.5 mg/dL Invalid Interpretation Code 8.4 - 10.2 mg/dL AO ADM SS Chloride [Moles/Vol] 104 mmol/L Invalid Interpretation Code 98 - 107 mmol/L AO ADM SS CO2 [Moles/Vol] 27 mmol/L Invalid Interpretation Code 23 - 31 mmol/L AO ADM SS Creatinine [Mass/Vol] 1.09 mg/dL Invalid Interpretation Code 0.70 - 1.30 mg/dL AO ADM SS Electrolyte Balance 11.0 mEq/L Invalid Interpretation Code 4.0 - 15.0 mEq/L AO ADM SS GFR 82 ml/min/1.73sqm Invalid Interpretation Code AO Chemistry S GFR Non- 67 ml/min/1.73sqm Invalid Interpretation Code AO Chemistry S Glucose [Mass/Vol] 110 mg/dL Invalid Interpretation Code 80 - 115 mg/dL AO ADM SS Potassium [Moles/Vol] 4.3 mmol/L Invalid Interpretation Code 3.5 - 5.1 mmol/L AO ADM SS Sodium [Moles/Vol] 142 mmol/L Invalid Interpretation Code 136 - 145 mmol/L AO ADM SS Troponin I.cardiac DL <= 0.01 ng/mL [Mass/Vol] 13.3 ng/L Invalid Interpretation Code 0.0 - 76.2 ng/L AO ADM SS Urea nitrogen [Mass/Vol] 28 mg/dL Invalid Interpretation Code 7 - 18 mg/dL AO ADM SS Urea nitrogen/Creatinine [Mass ratio] 26 ratio Invalid Interpretation Code 7 - 27 ratio AO ADM SS Vascular US lower extremity arterial duplex bilateral with ABIOrdered By: Caro Deutsch on 04-22-2022 Left RIMMA 1.01 [employer] Phone: Left arm BP 139 mmHg [facility] Work Phone: Left Dist Anastomosis EDV 0.0 cm/s [facility] Work Phone: Left Dist Anastomosis PSV 31.6 cm/s [facility] Work Phone: Left Dist Outflow EDV 0.0 cm/s [facility] Work Phone: Left Dist Outflow PSV 52.8 cm/s [facility] Work Phone: Left dorsalis pedis BP 145 mmHg [facility] Work Phone: Left Inflow Artery EDV 7.1 cm/s [facility] Work Phone: Left Inflow Artery PSV 95.8 cm/s [facility] Work Phone: Left Mid Outflow EDV 1.2 cm/s [facility] Work Phone: Left Mid Outflow PSV 59.4 cm/s [facility] Work Phone: Left Outflow Vessel EDV 0.0 cm/s S [facility] Work Phone: Left Outflow Vessel PSV 78.0 cm/s S [facility] Work Phone: Left posterior tibial 144 mmHg [facility] Work Phone: Left Prox Anastomosis EDV 0.0 cm/s [facility] Work Phone: Left Prox Anastomosis PSV 117.5 cm/s [facility] Work Phone: Left Prox Outflow EDV 1.0 cm/s [facility] Work Phone: Left Prox Outflow PSV 50.7 cm/s [facility] Work Phone: Right RIMMA 1.10 [facility] Work Phone: Right arm BP 143 mmHg [facility] Work Phone: Right Dist Anastomosis EDV 2.6 cm/s [facility] Work Phone: Right Dist Anastomosis PSV 52.1 cm/s [facility] Work Phone: Right Dist Outflow EDV 5.9 cm/s [facility] Work Phone: Right Dist Outflow PSV 61.3 cm/s [facility] Work Phone: Right dorsalis pedis BP 156 mmHg S [facility] Work Phone: Right Inflow Artery EDV 15.6 cm/s S [facility] Work Phone: Right Inflow Artery PSV 258.9 cm/s S [facility] Work Phone: Right Mid Outflow EDV 4.9 cm/s [facility] Work Phone: Right Mid Outflow PSV 60.3 cm/s [facility] Work Phone: Right Outflow Vessel EDV 8.9 cm/s [facility] Work Phone: Right Outflow Vessel PSV 88.7 cm/s [facility] Work Phone: Right posterior tibial 157 mmHg [facility] Work Phone: Right Prox Anastomosis EDV 0.0 cm/s [facility] Work Phone: Right Prox Anastomosis PSV 80.6 cm/s [facility] Work Phone: Right Prox Outflow EDV 0.0 cm/s [facility] Work Phone: Right Prox Outflow PSV 58.7 cm/s [facility] Work Phone: Vascular US lower extremity arterial duplex bilateral with ABIon 04-22-2022 Right side findings: Resting RIMMA is 1.10. This is within the normal range. Left side findings: Resting RIMMA is 1.01. This is within the normal range. Right graft inflow - >50% stenosis - no change from prior study 01/06/22 RIMMA Right side findings: Normal resting RIMMA. Left side findings: Normal resting RIMMA. Right PVR waveforms: Normal - ankle. Left PVR waveforms: Normal - ankle. Previous 12/27/2021 Right RIMMA 0.96 Left RIMMA 0.95 Lower Artery Bypass Graft Graft 1: right fem-tibial graft Graft inflow - >50% stenosis. Proximal anastomosis - patent. Proximal graft - patent. Mid graft - patent. Distal graft - patent. Distal anastomosis - patent. Graft outflow - patent. Moderate plaque in the inflow segment. Graft 2: left fem-pop graft Graft inflow - patent. Proximal anastomosis - patent. Proximal graft - patent. Mid graft - patent. Distal graft - patent. Distal anastomosis - patent. Graft outflow - patent. Shuttler Details A jimenez scale, color Doppler imaging and spectral Doppler analysis ultrasound was performed. During the study longitudinal and transverse views were obtained. Pulsed wave doppler was performed. The exam was performed with the patient in the supine position. Overall the study quality was adequate. Study was technically difficult due to: acoustic shadowing. CV CPACS XR Pelvis and Hip - right AP and Lateral frogon 04-18-2022 IMPRESSION: Degenerative changes as described. Plastics Bench Mechanic: PSCB Transcribe Date/Time: Apr 18 2022 9:00A Dictated by : MICHAEL GAMA DO This examination was interpreted and the report reviewed and electronically signed by: MICHAEL GAMA DO on Apr 18 2022 9:04AM [facility] DIVISION OF RADIOLOGY * * *Final Report* * * DATE OF EXAM: Apr 15 2022 4:31PM WOX 5352 - XR HIP 3V PELV+ AP/LAT RT / PROCEDURE REASON: Pain in right hip * * * * Physician Interpretation * * * * EXAMINATION: XR HIP 3V PELV+ AP/LAT RT PATIENT/TECHNOLOGIST PROVIDED HISTORY: Right posterior hip pain x 3 months without injury CLINICAL INFORMATION: 67 years old Male with Pain in right hip TECHNIQUE: XR HIP 3V PELV+ AP/LAT RT Laterality: RIGHT Number of different views (projections): 3 COMPARISON: None RESULT: No fracture. Minimal degenerative change RIGHT hip and mild degenerative change LEFT hip. Globular calcification adjacent to RIGHT greater trochanter representing gluteal calcific tendinosis. Incompletely assessed degenerative changes lower lumbar spine. Sacroiliac joints and pubic symphysis are within normal limits. Vascular calcifications and partially visualized vascular stent in the RIGHT mid thigh. Surgical clips bilateral inguinal regions. DIVISION OF RADIOLOGY Provider, [facility] - 04/18/2022 * * *Final Report* * * DATE OF EXAM: Apr 15 2022 4:31PM WOX 5352 - XR HIP 3V PELV+ AP/LAT RT / PROCEDURE REASON: Pain in right hip * * * * Physician Interpretation * * * * EXAMINATION: XR HIP 3V PELV+ AP/LAT RT PATIENT/TECHNOLOGIST PROVIDED HISTORY: Right posterior hip pain x 3 months without injury CLINICAL INFORMATION: 67 years old Male with Pain in right hip TECHNIQUE: XR HIP 3V PELV+ AP/LAT RT Laterality: RIGHT Number of different views (projections): 3 COMPARISON: None RESULT: No fracture. Minimal degenerative change RIGHT hip and mild degenerative change LEFT hip. Globular calcification adjacent to RIGHT greater trochanter representing gluteal calcific tendinosis. Incompletely assessed degenerative changes lower lumbar spine. Sacroiliac joints and pubic symphysis are within normal limits. Vascular calcifications and partially visualized vascular stent in the RIGHT mid thigh. Surgical clips bilateral inguinal regions. IMPRESSION IMPRESSION: Degenerative changes as described. Plastics Bench Mechanic: HETAL Transcribe Date/Time: Apr 18 2022 9:00A Dictated by : MICHAEL GAMA DO This examination was interpreted and the report reviewed and electronically signed by: MICHAEL GAMA DO on Apr 18 2022 9:04AM EST [facility] XR Pelvis and Hip - right AP and Lateral frogOrdered By: Ccf Provider on 04-18-2022 [facility] XR Pelvis and Hip - right AP and Lateral frogon 04-15-2022 Radiology Study observation (narrative) [facility] LABORATORYOrdered By: Cristóbal Jiménez on 03-19-2022 Prostate specific Ag [Mass/Vol] ng/mL Invalid Interpretation Code 0.00 - 4.00 ng/mL AO ADM SS CTA Abd Aorta + Iliofemoralo n 01-24-2022 CTA Abd Aorta + Iliofemoral Patient Name: LIDIA SINGH Computed Tomography ACCESSION EXAM DATE/TIME PROCEDURE ORDERING PROVIDER [id number] 01/24/2022 09:41 EDT CTA Abd Aorta + TA DOVER Iliofemoral CPT code 11711 [id number] Reason For Exam (CTA Abd Aorta + Iliofemoral) 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, bilateral legs Report CT ANGIOGRAPHY ABDOMEN AND PELVIS AND BILATERAL LOWER EXTREMITY ARTERIAL RUNOFF: CLINICAL INDICATION: Intermittent claudication in both legs TECHNIQUE: Transaxial sequence through the abdomen, pelvis and bilateral lower extremities after administration of 75 mL Isovue 370 nonionic IV contrast, injected at a high flow rate following a credit counselor study. Coronal and sagittal reformatted images were then created for further evaluation. 3-D reconstructions were created by myself using independent viewing software. Dose reduction was employed with automated exposure control. Comparison: None. FINDINGS: Evaluation of solid organs limited by early arterial contrast phase. Evaluation of arteries is limited by suboptimal opacification. Aorta and iliac arteries: Suprarenal aorta is normal in course and caliber with no aneurysmal dilatation or dissection. Celiac artery demonstrates mild atherosclerotic narrowing at its origin. Celiac artery is widely patent. There is mild left and moderate right atherosclerotic narrowing at the origin of the renal arteries. Infrarenal abdominal aorta and demonstrates extensive atherosclerotic calcification with mild luminal narrowing (less than 50 percent). There is moderate to severe atherosclerotic narrowing on the left and moderate atherosclerotic narrowing on the right in the common iliac arteries. Internal iliac arteries are densely calcified with areas of severe narrowing proximally and possible occlusion. External iliac arteries demonstrate mild to moderate atherosclerotic narrowing on the right and mild atherosclerotic narrowing on the left. Right lower extremity arteries: Postsurgical changes in the groin. Common femoral artery is widely patent. Deep femoral artery is patent. Superficial femoral artery and proximal popliteal artery is completely occluded. Distal popliteal artery is small in caliber but patent. Patent bypass graft is seen extending from the common femoral artery to the tibial peroneal trunk. Anterior tibial artery appears patent at its origin but opacification is not seen past the proximal tibia. Posterior tibial and peroneal arteries are patent to the ankle with mild to moderate atherosclerotic calcification in the proximal posterior tibial artery. Computed Tomography Report Left lower extremity arteries: Postsurgical changes in the groin. Common femoral artery is widely patent. Deep femoral artery is patent. Superficial femoral artery and proximal popliteal artery are completely occluded. There is minimal opacification of the distal popliteal artery. Patent bypass graft is seen extending from the common femoral artery until insertion near the popliteal bifurcation. Anterior tibial artery is occluded near its origin. Posterior tibial artery and peroneal arteries are patent to the ankle with moderate atherosclerotic calcification in the proximal posterior tibial artery. Lung bases: Clear.. Liver: Normal in size and contour. No focal lesion identified. Biliary tree: No biliary dilatation identified. The gallbladder is normal in appearance. Spleen: Not enlarged. Adrenals: No significant abnormality. Pancreas: No significant abnormality. Kidneys: Symmetric contrast excretion without evidence of hydronephrosis No focal renal lesion is identified.. Peritoneum: Mild free fluid in the pelvis. No free intraperitoneal air. Lymphadenopathy: None. Bowel: No bowel wall thickening or dilatation. The appendix is normal in appearance. Abdominal wall: No masses or fluid collections. Pelvic organs: Diffuse bladder wall thickening which may be due in part to underdistention. Soft tissues of the lower extremities: No significant abnormality. Osseous structures: No suspicious osseous lesions. IMPRESSION: 1. Mild narrowing in the distal aorta with mild to moderate bilateral iliac artery narrowing. 2. Complete opacification of the superficial femoral arteries and proximal popliteal arteries bilaterally with patent femoral to [id number] bypass grafts. 3. Patent two-vessel runoff in the lower extremities bilaterally (posterior tibial and peroneal arteries). 4. Mild free fluid in the pelvis of unknown clinical significance. Report Dictated on Final Dictating Physician: MD CHAMBERS JAMES Signed Date and Time: 01/24/2022 3:56 pm Signed by: MD CHAMBERS JAMES Transcribed Date and Time: 01/24/2022 3:57 Normal [facility] Creatinineon 01-03-2022 Creatinine [Mass/Vol] 0.98 mg/dL Normal 0.52-1.25 [facility] Comment on above: Performed By: #### C RTN3 #### [address] [id number] GFR/1.73 sq M.predicted among blacks MDRD (S/P/Bld) [Vol rate/Area] mL/min/{1.73_m2} Normal >60 [facility] Comment on above: Performed By: #### C RTN3 #### [facility] [address] [place] [address] GFR/1.73 sq M.predicted among non-blacks MDRD (S/P/Bld) [Vol rate/Area] 79.0 mL/min/{1.73_m2} Normal >60 [facility] Comment on above: Result Comment: KDIG O guidelines provide the following GFR categories: Stage GFR(ml/min/1.73 m2) Terms G1 >=90 Normal or high G2 60-89 Mildly decreased* G3a 45-59 Mildly to moderately decreased G3b 30-44 Moderately to severely decreased G4 15-29 Severely decreased G5 <15 Kidney failure *Relative to young adult level. In the absence of evidence of kidney damage, neither GFR category G1 nor G2 fulfill the criteria for CKD. The CKD-EPI equation is validated in individuals 18 years of age and older. Currently the best equation for estimating glomerular filtration rate (GFR) from serum creatinine in children is the Bedside Bender equation. It is less accurate in patients with extremes of muscle mass, restriction of dietary protein, ingestion of creatine, extra-renal metabolism of creatinine, or treatment with medications that affect renal tubular creatinine secretion. Performed By: #### C RTN3 #### [facility] [address] [id number] Creatinine [Mass/Vol] 0.98 mg/dL 0.52 - 1.25 mg/dL [facility] eGFR mL/min 60 - P INF mL/min [facility] EGFR IF NonAfrican French 79.0 mL/min 60 - PINF mL/min [facility] Comment on above: KDIGO guidelines pro vide the following GFR categories: Stage GFR(ml/min/1.73 m2) Terms G1 >=90 Normal or high G2 60-89 Mildly decreased* G3a 45-59 Mildly to moderately decreased G3b 30-44 Moderately to severely decreased G4 15-29 Severely decreased G5 <15 Kidney failure *Relative to young adult level. In the absence of evidence of kidney damage, neither GFR category G1 nor G2 fulfill the criteria for CKD. The CKD-EPI equation is validated in individuals 18 years of age and older. Currently the best equation for estimating glomerular filtration rate (GFR) from serum creatinine in children is the Bedside Bender equation. It is less accurate in patients with extremes of muscle mass, restriction of dietary protein, ingestion of creatine, extra-renal metabolism of creatinine, or treatment with medications that affect renal tubular creatinine secretion. Test Performed by [facility] [address] [facility] VL Arterial Duplex US Lower Ext Bilateralon 12-27-2021 VL Arterial Duplex US Lower Ext Bilateral Patient Name: LIDIA SINGH Ultrasound ACCESSION EXAM DATE/TIME PROCEDURE ORDERING PROVIDER [id number] 12/27/2021 14:00 EDT VL Arterial Duplex US TA DOVER CPT code [id number] Reason For Exam (VL Arterial Duplex US Lower) bilateral Fem-PT bypass Report [facility] ----- Lower Extremity Graft Evaluation Patient Samantha, : 1955 Study 12/27/2021 Name: Lidia Rosen (66yrs) Date: Age: 66 Account: [id number] Gender: M Loc: BP: Ordering Physician: Ta Dover MD Assistant Store Director: Alverto Patel RDMS, RVT Interpreting Physician: Eugenio Jain MD ----- Location: [facility] ----- 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 Bilateral fem-PT bypass. ----- Conclusions 1. Right resting RIMMA is 0.96. This is within the normal range. 2. Left resting RIMMA is 0.92. This is within the normal range. 3. Patent right fem-tibial bypass graft with normal velocities. 4. Inflow vessel on the right side has elevated velocities 5. Patent left fem-tibial bypass graft with normal velocities. ----- History: Risk factors: Current tobacco use. Hypertension. Hyperlipidemia. Age over 65 years. ----- Study data: Lower extremity graft evaluation. Location: Vascular laboratory. Procedure: A vascular evaluation was performed with the patient in the supine position. Images were obtained using a [employer] vascular ultrasound machine. Ultrasound Report ----- Arterial pressure indices: + + ------+ + +Location +Pressure (REST)*+Index (REST)+ + + ------+ + +R brachial+128 + + + + ------+ + +R DP +123 +0.96 + + + ------+ + +R PT +122 +0.95 + + + ------+ + +L brachial+119 + + + + ------+ + +L DP +112 +0.88 + + + ------+ + +L PT +118 +0.92 + + + ------+ + ----- Arterial flow: + -+ +-------- +-------- ----+ +Location +PSV(cm/sec)+Comment +Graft type + + -+ +-------- +-------- ----+ +R Elvap-lhppsj-3 +253 +Increased velocities.+R fem to COMMERCIAL ASSISTANT+ + -+ +-------- +-------- ----+ +R Graft-proximal +86 +Turbulent. +R fem to COMMERCIAL ASSISTANT+ +anastomosis-1 + + + + + -+ +-------- +-------- ----+ +R Graft-proximal +73 + +R fem to COMMERCIAL ASSISTANT+ +graft-1 + + + + + -+ +-------- +-------- ----+ +R Graft-mid graft-1 +73 + +R fem to COMMERCIAL ASSISTANT+ + -+ +-------- +-------- ----+ +R Graft-distal graft-1+63 + +R fem to COMMERCIAL ASSISTANT+ + -+ +-------- +-------- ----+ +R Graft-distal +116 + +R fem to COMMERCIAL ASSISTANT+ +anastomosis-1 + + + + + -+ +-------- +-------- ----+ +R Wauur-xnozref-1 +151 + +R fem to COMMERCIAL ASSISTANT+ + -+ +-------- +-------- ----+ +L Mfwme-nqrouo-3 +168 + +L fem to COMMERCIAL ASSISTANT+ + -+ +-------- +-------- ----+ +L Graft-proximal +70 + +L fem to COMMERCIAL ASSISTANT+ +anastomosis-1 + + + + + -+ +-------- +-------- ----+ +L Graft-proximal +31 + +L fem to COMMERCIAL ASSISTANT+ +graft-1 + + + + + -+ +-------- +-------- ----+ +L Graft-mid graft-1 +52 + +L fem to COMMERCIAL ASSISTANT+ + -+ +-------- +-------- ----+ +L Graft-distal graft-1+50 + +L fem to COMMERCIAL ASSISTANT+ + -+ +-------- +-------- ----+ +L Graft-distal +60 + +L fem to COMMERCIAL ASSISTANT+ +anastomosis-1 + + + + + -+ +-------- +-------- ----+ +L Wmtun-cvdxlqx-7 +68 + +L fem to COMMERCIAL ASSISTANT+ + -+ +-------- +-------- ----+ Prepared and electronically urvashi (more content not included)... 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 Bilateral fem-PT bypass. ----- Conclusions 1. Right resting RIMMA is 0.96. This is within the normal range. 2. Left resting RIMMA is 0.92. This is within the normal range. 3. Patent right fem-tibial bypass graft with normal velocities. 4. Inflow vessel on the right side has elevated velocities 5. Patent left fem-tibial bypass graft with normal velocities. ----- History: Risk factors: Current tobacco use. Hypertension. Hyperlipidemia. Age over 65 years. ----- Study data: Lower extremity graft evaluation. Location: Vascular laboratory. Procedure: A vascular evaluation was performed with the patient in the supine position. Images were obtained using a [employer] vascular ultrasound machine. ----- Arterial pressure indices: + + ------+ + +Location +Pressure (REST)*+Index (REST)+ + + ------+ + +R brachial+128 + + + + ------+ + +R DP +123 +0.96 + + + ------+ + +R PT +122 +0.95 + + + ------+ + +L brachial+119 + + + + ------+ + +L DP +112 +0.88 + + + ------+ + +L PT +118 +0.92 + + + ------+ + ----- Arterial flow: + -+ +-------- +-------- ----+ +Location +PSV(cm/sec)+Comment +Graft type + + -+ +-------- +-------- ----+ +R Sestd-uyyihn-8 +253 +Increased velocities.+R fem to COMMERCIAL ASSISTANT+ + -+ +-------- +-------- ----+ +R Graft-proximal +86 +Turbulent. +R fem to COMMERCIAL ASSISTANT+ +anastomosis-1 + + + + + -+ +-------- +-------- ----+ +R Graft-proximal +73 + +R fem to COMMERCIAL ASSISTANT+ +graft-1 + + + + + -+ +-------- +-------- ----+ +R Graft-mid graft-1 +73 + +R fem to COMMERCIAL ASSISTANT+ + -+ +-------- +-------- ----+ +R Graft-distal graft-1+63 + +R fem to COMMERCIAL ASSISTANT+ + -+ +-------- +-------- ----+ +R Graft-distal +116 + +R fem to COMMERCIAL ASSISTANT+ +anastomosis-1 + + + + + -+ +-------- +-------- ----+ +R Utpuv-vqvxuze-6 +151 + +R fem to COMMERCIAL ASSISTANT+ + -+ +-------- +-------- ----+ +L Auimd-lzacuv-4 +168 + +L fem to COMMERCIAL ASSISTANT+ + -+ +-------- +-------- ----+ +L Graft-proximal +70 + +L fem to COMMERCIAL ASSISTANT+ +anastomosis-1 + + + + + -+ +-------- +-------- ----+ +L Graft-proximal +31 + +L fem to COMMERCIAL ASSISTANT+ +graft-1 + + + + + -+ +-------- +-------- ----+ +L Graft-mid graft-1 +52 + +L fem to COMMERCIAL ASSISTANT+ + -+ +-------- +-------- ----+ +L Graft-distal graft-1+50 + +L fem to COMMERCIAL ASSISTANT+ + -+ +-------- ---- (more content not included)... 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 Bilateral fem-PT bypass. ----- Conclusions 1. Right resting RIMMA is 0.96. This is within the normal range. 2. Left resting RIMMA is 0.92. This is within the normal range. 3. Patent right fem-tibial bypass graft with normal velocities. 4. Inflow vessel on the right side has elevated velocities 5. Patent left fem-tibial bypass graft with normal velocities. ----- History: Risk factors: Current tobacco use. Hypertension. Hyperlipidemia. Age over 65 years. ----- Study data: Lower extremity graft evaluation. Location: Vascular laboratory. Procedure: A vascular evaluation was performed with the patient in the supine position. Images were obtained using a [employer] vascular ultrasound machine. ----- Arterial pressure indices: + + ------+ + +Location +Pressure (REST)*+Index (REST)+ + + ------+ + +R brachial+128 + + + + ------+ + +R DP +123 +0.96 + + + ------+ + +R PT +122 +0.95 + + + ------+ + +L brachial+119 + + + + ------+ + +L DP +112 +0.88 + + + ------+ + +L PT +118 +0.92 + + + ------+ + ----- Arterial flow: + -+ +-------- +-------- ----+ +Location +PSV(cm/sec)+Comment +Graft type + + -+ +-------- +-------- ----+ +R Tgple-daxnmb-0 +253 +Increased velocities.+R fem to COMMERCIAL ASSISTANT+ + -+ +-------- +-------- ----+ +R Graft-proximal +86 +Turbulent. +R fem to COMMERCIAL ASSISTANT+ +anastomosis-1 + + + + + -+ +-------- +-------- ----+ +R Graft-proximal +73 + +R fem to COMMERCIAL ASSISTANT+ +graft-1 + + + + + -+ +-------- +-------- ----+ +R Graft-mid graft-1 +73 + +R fem to COMMERCIAL ASSISTANT+ + -+ +-------- +-------- ----+ +R Graft-distal graft-1+63 + +R fem to COMMERCIAL ASSISTANT+ + -+ +-------- +-------- ----+ +R Graft-distal +116 + +R fem to COMMERCIAL ASSISTANT+ +anastomosis-1 + + + + + -+ +-------- +-------- ----+ +R Yxigh-mtdhjyj-9 +151 + +R fem to COMMERCIAL ASSISTANT+ + -+ +-------- +-------- ----+ +L Owyeq-rpbuhl-5 +168 + +L fem to COMMERCIAL ASSISTANT+ + -+ +-------- +-------- ----+ +L Graft-proximal +70 + +L fem to COMMERCIAL ASSISTANT+ +anastomosis-1 + + + + + -+ +-------- +-------- ----+ +L Graft-proximal +31 + +L fem to COMMERCIAL ASSISTANT+ +graft-1 + + + + + -+ +-------- +-------- ----+ +L Graft-mid graft-1 +52 + +L fem to COMMERCIAL ASSISTANT+ + -+ +-------- +-------- ----+ +L Graft-distal graft-1+50 + +L fem to COMMERCIAL ASSISTANT+ + -+ +-------- +-------- ----+ +L Graft-distal +60 + +L fem to COMMERCIAL ASSISTANT+ +anastomosis-1 + + + + + -+ +-------- +-------- ----+ +L Zjkzp-wtnydoi-9 +68 + +L fem to COMMERCIAL ASSISTANT+ + -+ +-------- +-------- ----+ Prepared and electronically signed by Eugenio Jain MD 12/27/2021 14:19 [facility] Work Phone: Radiology Study observation (narrative) [facility] Phone: VL Lower Extremity Arteries BilateralOrdered By: Eugenio Jain on 12-27-2021 [facility] Phone: LABORATORYOrdered By: Stefanie Garcia on 09-25-2021 Albumin BCP dye [Mass/Vol] 4.2 G/dL Invalid Interpretation Code 3.4 - 4.8 G/dL AO ADM SS Albumin/Globulin [Mass ratio] 1.4 {ratio} Invalid Interpretation Code 1.1 - 2.5 ratio AO ADM SS ALP [Catalytic activity/Vol] 92 U/L Invalid Interpretation Code 40 - 135 U/L AO ADM SS ALT With P-5'-P [Catalytic activity/Vol] 32 U/L Invalid Interpretation Code 16 - 63 U/L AO ADM SS AST With P-5'-P [Catalytic activity/Vol] 18 U/L Invalid Interpretation Code 10 - 40 U/L AO ADM SS Bilirubin [Mass/Vol] 0.6 mg/dL Invalid Interpretation Code 0.2 - 1.0 mg/dL AO ADM SS Calcium [Mass/Vol] 9.6 mg/dL Invalid Interpretation Code 8.4 - 10.2 mg/dL AO ADM SS Chloride [Moles/Vol] 105 mmol/L Invalid Interpretation Code 98 - 107 mmol/L AO ADM SS CO2 [Moles/Vol] 26 mmol/L Invalid Interpretation Code 23 - 31 mmol/L AO ADM SS Creatinine [Mass/Vol] 1.02 mg/dL Invalid Interpretation Code 0.70 - 1.30 mg/dL AO ADM SS Electrolyte Balance 11.0 mEq/L Invalid Interpretation Code 4.0 - 15.0 mEq/L AO ADM SS Globulin 3.0 G/dL Invalid Interpretation Code AO ADM SS Glucose [Mass/Vol] 102 mg/dL Invalid Interpretation Code 80 - 115 mg/dL AO ADM SS Potassium [Moles/Vol] 5.3 mmol/L Invalid Interpretation Code 3.5 - 5.1 mmol/L AO ADM SS Protein [Mass/Vol] 7.2 G/dL Invalid Interpretation Code 6.4 - 8.2 G/dL AO ADM SS Sodium [Moles/Vol] 142 mmol/L Invalid Interpretation Code 136 - 145 mmol/L AO ADM SS Urea nitrogen [Mass/Vol] 20 mg/dL Invalid Interpretation Code 7 - 18 mg/dL AO ADM SS Urea nitrogen/Creatinine [Mass ratio] 20 ratio Invalid Interpretation Code 7 - 27 ratio AO ADM SS Cholesterol [Mass/Vol] 123 mg/dL Invalid Interpretation Code 0 - 200 mg/dL AO ADM SS Cholesterol in HDL [Mass/Vol] 54 mg/dL Invalid Interpretation Code 40 - 60 mg/dL AO ADM SS Cholesterol in LDL [Mass/Vol] 57 mg/dL Invalid Interpretation Code 0 - 130 mg/dL AO ADM SS Triglyceride [Mass/Vol] 59 mg/dL Invalid Interpretation Code 0 - 150 mg/dL AO ADM SS LABORATORYOrdered By: SYSTEM SYSTEM on 09-25-2021 GFR 88 ml/min/1.73sqm Invalid Interpretation Code AO Chemistry S GFR Non- 73 ml/min/1.73sqm Invalid Interpretation Code AO Chemistry S LABORATORYOrdered By: Cristóbal Fishman on 09-02-2021 Prostate specific Ag [Mass/Vol] ng/mL Invalid Interpretation Code 0.00 - 4.00 ng/mL AO ADM SS LABORATORYOrdered By: Evy Jones on 05-19-2021 Prostate specific Ag [Mass/Vol] ng/mL Invalid Interpretation Code 0.00 - 4.00 ng/mL AO ADM SS VL DUP LOWER EXTREMITY ARTER IES BILATERALOrdered By: Harjinder Sahu on 12-04-2020 [facility] ----- Lower Extremity Graft Evaluation Patient Samantha, : 1955 Study 12/04/2020 Name: Lidia Rosen () Date: Age: 65 Account: [id number] Gender: M Loc: BP: Ordering Physician: Harjinder Sahu Assistant Store Director: Ta Campuzano RVT Interpreting Physician: Ta Dover MD ----- Location: [facility] ----- 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 Claudication. ----- Conclusions 1. Right resting RIMMA is 1.01. This is within the normal range. 2. Left resting RIMMA is 0.96. This is within the normal range. 3. Patent right fem-tibial bypass graft with normal velocities. 4. Patent left fem-tibial bypass graft with normal velocities. ----- History: PMH: Right fem-tib 12/13/12, left fem-tib 02/27/14. Risk factors: Current tobacco use. Hyperlipidemia. Age over 65 years. ----- Study data: Lower extremity graft evaluation. Location: Vascular laboratory. Objective: Interval follow-up. Procedure: A vascular evaluation was performed with the patient in the supine position. Images were obtained using a [employer] E9 vascular ultrasound machine. ----- Arterial pressure indices: + + ------+ + +Location +Pressure (REST)*+Index (REST)+ + + ------+ + +R brachial+145 + + + + ------+ + +L brachial+134 + + + + ------+ + +R DP +144 +0.99 + + + ------+ + +R PT +146 +1.01 + + + ------+ + +L DP +138 +0.95 + + + ------+ + +L PT +139 +0.96 + + + ------+ + ----- Arterial flow: + ---------+ + + +Location +PSV(cm/sec)+Graft type + + ---------+ + + +R Xysnt-tkcdso-4 +67 +R fem to COMMERCIAL ASSISTANT+ + ---------+ + + +R Graft-proximal anastomosis-1+95 + + + ---------+ + + +R Graft-proximal graft-1 +61 + + + ---------+ + + +R Graft-mid graft-1 +53 + + + ---------+ + + +R Graft-distal graft-1 +50 + + + ---------+ + + +R Graft-distal anastomosis-1 +64 + + + ---------+ + + +R Arwjj-duazkgd-6 +142 + + + ---------+ + + +L Asqrh-ogvcwp-1 +55 +L fem to COMMERCIAL ASSISTANT+ + ---------+ + + +L Graft-proximal anastomosis-1+54 + + + ---------+ + + +L Graft-proximal graft-1 +46 + + + ---------+ + + +L Graft-mid graft-1 +52 + + + ---------+ + + +L Graft-distal graft-1 +54 + + + ---------+ + + +L Graft-distal anastomosis-1 +33 + + + ---------+ + + +L Pqcvz-wuuaykx-5 +59 + + + ---------+ + + Prepared and electronically signed by Ta Dover MD 12/04/2020 16:47 [facility] Work Phone: [facility], [facility] Incoming Cardiology Results From Blanca/Johnny - 12/04/2020 4:48 PM EDT [facility] ----- Lower Extremity Graft Evaluation Patient Samantha, : 1955 Study 12/04/2020 Name: Lidia Rosen (65yrs) Date: Age: 65 Account: [id number] Gender: M Loc: BP: Ordering Physician: Harjinder Sahu Assistant Store Director: Ta Campuzano T Interpreting Physician: Ta Dover MD ----- Location: [facility] ----- 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 Claudication. ----- Conclusions 1. Right resting RIMMA is 1.01. This is within the normal range. 2. Left resting RIMMA is 0.96. This is within the normal range. 3. Patent right fem-tibial bypass graft with normal velocities. 4. Patent left fem-tibial bypass graft with normal velocities. ----- History: PMH: Right fem-tib 12/13/12, left fem-tib 02/27/14. Risk factors: Current tobacco use. Hyperlipidemia. Age over 65 years. ----- Study data: Lower extremity graft evaluation. Location: Vascular laboratory. Objective: Interval follow-up. Procedure: A vascular evaluation was performed with the patient in the supine position. Images were obtained using a [employer] E9 vascular ultrasound machine. ----- Arterial pressure indices: + + ------+ + +Location +Pressure (REST)*+Index (REST)+ + + ------+ + +R brachial+145 + + + + ------+ + +L brachial+134 + + + + ------+ + +R DP +144 +0.99 + + + ------+ + +R PT +146 +1.01 + + + ------+ + +L DP +138 +0.95 + + + ------+ + +L PT +139 +0.96 + + + ------+ + ----- Arterial flow: + ---------+ + + +Location +PSV(cm/sec)+Graft type + + ---------+ + + +R Reuli-psbuzl-3 +67 +R fem to COMMERCIAL ASSISTANT+ + ---------+ + + +R Graft-proximal anastomosis-1+95 + + + ---------+ + + +R Graft-proximal graft-1 +61 + + + ---------+ + + +R Graft-mid graft-1 +53 + + + ---------+ + + +R Graft-distal graft-1 +50 + + + ---------+ + + +R Graft-distal anastomosis-1 +64 + + + ---------+ + + +R Sueuc-yutvjpf-8 +142 + + + ---------+ + + +L Zdqeh-agukds-8 +55 +L fem to COMMERCIAL ASSISTANT+ + ---------+ + + +L Graft-proximal anastomosis-1+54 + + + ---------+ + + +L Graft-proximal graft-1 +46 + + + ---------+ + + +L Graft-mid graft-1 +52 + + + ---------+ + + +L Graft-distal graft-1 +54 + + + ---------+ + + +L Graft-distal anastomosis-1 +33 + + + ---------+ + + +L Ucbny-vcwrbck-0 +59 + + + ---------+ + + Prepared and electronically signed by Ta Dover MD 12/04/2020 16:47 [email or web address] Work Phone: [facility] Work Phone: CNTHERAPYon 12-01-2020 CNTHERAPY OT/PT/Speech Visit ([facility]) LIDIA SINGH ([id number]) 1955 M [employer]* Date Time Provider Department 12/01/20 10:15 AM FATOUMATA JARRETT [facility] Date Time Provider Department Center 12/01/2020 10:15 AM [id number] JARRETT [facility] Reason for Visit: OT Discharge [750] 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] Allergies As of Date: 12/01/2020 Noted Allergy Reaction NABUMETONE 06/01/2005 8 - GI Upset Date Reviewed: 11/30/2020 Reviewed by: Mackenzie Cronin Ma - Fully Assessed Prescriptions as of 12/01/2020 Sig: LOSARTAN 25 MG TABLET Take 1 (ONE) tab(s) Oral EVER* LATANOPROST 0.005 % EYE DROPS instill 1 (ONE) DROP IN BOTH * MELOXICAM 15 MG TABLET Take 1 tablet by mouth once d* ATORVASTATIN 40 MG TABLET Take 40 mg by mouth once lalo* ASPIRIN 81 MG TABLET,DELAYED * Take 1 tablet by mouth once d* Progress Notes: Fatoumata Jarrett, OT/L 12/01/2020 10:44 AM Signed Episode Visit Count: 5 Therapist That Will Oversee The Plan Of Care: Jarrett Fatoumata Start of Care Date: 11/03/20 Onset Date: 10/07/20 Patient Identified by Name and Date of : Yes REHABILITATION AND SPORTS THERAPY OCCUPATIONAL THERAPY DISCONTINUANCE OF CARE PLAN OF CARE UPDATE: Assessment: Lidia Singh is discontinued from Occupational Therapy services due to goal achievement and maximal benefit.. Patient was seen for 5 visits from Start of Care Date: 11/03/20 to 12/01/2020 and treatment included: Therapeutic exercise, Self-fdc management, Modalities, Custom orthosis fabrication and Prefabricated orthosis fitting. Goals for Episode of Care created on 11/03/20 through 01/03/21 Patient will report a good understanding of diagnosis and OT recommendations for progression of program.MET Patient will demonstrate independence with ongoing home recommendations/exerci se program throughout therapy plan of care.MET Patient will independently demonstrate correct application of CUSTOM orthosis and verbalize understanding of proper wear/care. MET Patient will report a good understanding of edema control, scar / wound management throughout therapy plan of care to promote non-adherent / non-tender soft tissue MET. SUBJECTIVE: Pt reports he has no pain, he is nearly performing full duty, saw MD and is discharged, he has good understanding of HEP Pain: Pain Pain Level: 0 Post Treatment Pain Post Treatment Pain Level: 0 PROMIS Scales Higher is Better 02/02/2016 02/02/2016 10/31/2016 GH Physical - Percentile 22 % 22 % 10 % GH Mental - Percentile 19 % 19 % 9 % T-scores: mean of general population = 50. 5 points is clinically meaningfully difference Percentiles provide an indication of how the patient's score ranks in relation to the general population. Higher percentile rankings indicate better function/quality of life. 50th percentile is the average of the general population and indicates half of respondents had a worse score. T-scores: mean of general population = 50. 5 points is clinically meaningfully difference Percentiles provide an indication of how the patient's score ranks in relation to the general population. Higher percentile rankings indicate better function/quality of life. 50th percentile is the average of the general population and indicates half of respondents had a worse score. OBJECTIVE MEASURES WITH LEVEL OF FUNCTION: Hand Wrist AROM: Right Limitation Right Hand AROM: All Digits Thumb AROM: Right Limitation Strength: Rolling Mill Operator Helper Position 2;Pinch Meter Sensation: Denies tingling or numbness Hand Strength R Rolling Mill Operator Helper Position 2 (lbs): 62 lbs R Lateral Pinch (lbs): 13.5 lbs R Tripod/ 3 Jaw Paul (lbs): 11 lbs UE AROM Right Hand AROM: All Digits Thumb AROM: Right Limitation Hand AROM R Index Finger MP Extension: 0 Degrees R Index Finger MP Flexion: 70 Degrees R Index Finger PIP Extension : 0 Degrees R Index Finger PIP Flexion: 86 Degrees R Index Finger DIP Extension : 0 Degrees R Index Finger DIP Flexion: 72 Degrees Right Index Finger Total Active Movement: 228 R Middle Finger MP Extension : 0 Degrees R Middle Finger MP Flexion : 84 Degrees R Middle Finger PIP Extension: 0 Degrees R Middle Finger PIP Flexion : 99 Degrees R Middle Finger DIP Extension : 0 Degrees R Middle Finger DIP Flexion : 59 Degrees Right Middle Finger Total Active Movement: 242 R Ring Finger MP Extension : 0 Degrees R Ring Finger MP Flexion : 81 Degrees R Ring Finger PIP Extension: 0 Degrees R Ring Finger PIP Flexion : 102 Degrees R Ring Finger DIP Extension: 0 Degrees R Ring Finger DIP Flexion : 74 Degrees Right Ring Finger Total Active Movement: 257 R Little Finger MP Extension : 0 Degrees R Little Finger MP Flexion : 85 Degrees R Little Finger PIP Extension : 0 Degrees R Little Finger PIP Flexion : 94 Degrees R Little Finger DIP Extension : 0 Degrees R Little (more content not included)... 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] Allergies As of Date: 11/23/2020 Noted Allergy Reaction BURTON 06/01/2005 8 - GI Upset Date Reviewed: 11/03/2020 Reviewed by: Dipesh Barcenas MD - Fully Assessed Prescriptions as of 11/23/2020 Sig: LOSARTAN 25 MG TABLET Take 1 (ONE) tab(s) Oral EVER* LATANOPROST 0.005 % EYE DROPS instill 1 (ONE) DROP IN BOTH * MELOXICAM 15 MG TABLET Take 1 tablet by mouth once d* ATORVASTATIN 40 MG TABLET Take 40 mg by mouth once lalo* ASPIRIN 81 MG TABLET,DELAYED * Take 1 tablet by mouth once d* Progress Notes: JULIETTE Nava 11/23/2020 10:12 AM Signed Episode Visit Count: 4 Therapist That Will Oversee The Plan Of Care: Darinel Ham Start of Care Date: 11/03/20 Onset Date: 10/07/20 Patient Identified by Name and Date of : Yes REHABILITATION AND SPORTS THERAPY OCCUPATIONAL THERAPY TREATMENT NOTE ASSESSMENT: Lidia Singh demonstrated difficulty with full strength and endurance. The patient will continue to benefit from continued skilled occupational therapy for education exercises and modalities PLAN FOR NEXT VISIT: reassess anticpate discharge SUBJECTIVE: pt reports he is doing really well denies pain still performing light duty at work minimal use of splint Pain: Pain Pain Level: 0 OBJECTIVE MEASURES WITH LEVEL OF FUNCTION: Hand Thumb AROM: Right Limitation UE AROM R Wrist Extension: 55 Degrees R Wrist Flexion: 40 Degrees R Wrist Radial Deviation: 25 Degrees R Wrist Ulnar Deviation: 25 Degrees Thumb AROM: Right Limitation Hand AROM R Thumb MP Flexion : 25 Degrees R Thumb IP Flexion : 59 Degrees R Thumb Radial Abduction: 70 Degrees R Thumb Palmar Abduction: 75 Degrees TREATMENT: Therapeutic Exercise: 1: wrist flex/ext deviation 2: tendon gliding 3: with 1# weight 4: instructed pt in further weaning self out of splint 5: educated in what splint should do Skilled Intervention: Patient was educated in proper exercise technique and purpose for exercises. Skilled judgment was provided in selection of appropriate interventions. Billing: Pratt: Therapeutic Exercise (57753): 1:1 time:30 minutes (2 units: 23-37 mins) Total time / Length of visit: 30 minutes JULIETTE Nava Annotated image of OT HAND WRIST STRENGTHENING last updated by JULIETTE Nava on 11/23/2020 9:52 AM [facility] CNTHERAPYon 11-17-2020 CNTHERAPY OT/PT/Speech Visit ([facility]) LIDIA SINGH ([id number]) 1955 Peggy Espitia* Date Time Provider Department 11/17/20 8:45 AM [facility] Provider Department Center 11/17/2020 8:45 AM [id number] JARRETT [facility] Reason for Visit: Occupational Therapy [504] 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] Other Visit Diagnosis:Localized osteoarthritis of right hand [M19.041] Allergies As of Date: 11/17/2020 Noted Allergy Reaction JENNIFERUMESHELLIE 06/01/2005 8 - GI Upset Date Reviewed: 11/03/2020 Reviewed by: Dipesh Barcenas MD - Fully Assessed Prescriptions as of 11/17/2020 Sig: LOSARTAN 25 MG TABLET Take 1 (ONE) tab(s) Oral EVER* LATANOPROST 0.005 % EYE DROPS instill 1 (ONE) DROP IN BOTH * MELOXICAM 15 MG TABLET Take 1 tablet by mouth once d* ATORVASTATIN 40 MG TABLET Take 40 mg by mouth once lalo* ASPIRIN 81 MG TABLET,DELAYED * Take 1 tablet by mouth once d* Progress Notes: JULIETTE Nava 11/17/2020 1:48 PM Signed Episode Visit Count: 3 Therapist That Will Oversee The Plan Of Care: Darinel Ham Start of Care Date: 11/03/20 Onset Date: 10/07/20 Patient Identified by Name and Date of : Yes REHABILITATION AND SPORTS THERAPY OCCUPATIONAL THERAPY TREATMENT NOTE ASSESSMENT: Lidia Singh demonstrated difficulty with strength and endurance. The patient will continue to benefit from continued skilled occupational therapy for exercises modalities splinting and exercises PLAN FOR NEXT VISIT: additional putty and weight DC splint as able SUBJECTIVE: s/p CMC arthroplasty pt reports he has returned to work on light duty just supervisong Pain: OBJECTIVE MEASURES WITH LEVEL OF FUNCTION: Hand Strength: Rolling Mill Operator Helper Position 2;Pinch Meter Hand Strength R Rolling Mill Operator Helper Position 2 (lbs): 59 lbs L Rolling Mill Operator Helper Position 2 (lbs): 70 lbs R Lateral Pinch (lbs): 10 lbs R Tripod/ 3 Jaw Paul (lbs): 10 lbs L Lateral Pinch (lbs): 20 lbs L Tripod/ 3 Jaw Paul (lbs): 17 lbs TREATMENT: Therapeutic Exercise: 1: wrist flex/ext deviation 2: tendon gliding 3: thumb flex ext opposition radial and palmar abduction and circumduction 4: reduced splint o hand based 5: med soft putty it security project manager, digit flexion thumb flexion and digit ext abduction into flattened putty Skilled Intervention: Patient was educated in proper exercise technique and purpose for exercises. Reviewed and educated patient on additions/changes for splinting Modalities: Fluidotherapy Body Region Treated - Fluidotherapy: right hand Patient Position: seated Temperature: 101 Minute(s): 10 Activity 1: AROM Skilled Intervention: Proper administration and selection of modality based on clinical presentation, deficits, and needs. Patient response monitored throughout treatment. 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] Other Visit Diagnosis:Localized osteoarthritis of right hand [M19.041] Allergies As of Date: 11/12/2020 Noted Allergy Reaction NABUMETONE 06/01/2005 8 - GI Upset Date Reviewed: 11/03/2020 Reviewed by: Dipesh Barcenas MD - Fully Assessed Prescriptions as of 11/12/2020 Sig: LOSARTAN 25 MG TABLET Take 1 (ONE) tab(s) Oral EVER* LATANOPROST 0.005 % EYE DROPS instill 1 (ONE) DROP IN BOTH * MELOXICAM 15 MG TABLET Take 1 tablet by mouth once d* ATORVASTATIN 40 MG TABLET Take 40 mg by mouth once lalo* ASPIRIN 81 MG TABLET,DELAYED * Take 1 tablet by mouth once d* Progress Notes: Fatoumata Jarrett OT/Tera 11/12/2020 10:16 AM Signed Episode Visit Count: 2 Therapist That Will Oversee The Plan Of Care: Darinel Ham Start of Care Date: 11/03/20 Onset Date: 10/07/20 Patient Identified by Name and Date of : Yes REHABILITATION AND SPORTS THERAPY OCCUPATIONAL THERAPY TREATMENT NOTE ASSESSMENT: Lidia Singh demonstrated difficulty with strength improved in AROM . The patient will continue to benefit from continued skilled occupational therapy for exercises splinting PLAN FOR NEXT VISIT: reduce splint to hand based pinch pins and velcro checkers SUBJECTIVE: s/p CMC arthroplasty pt reports he has returned to work on light duty just supervisong Pain: Pain Pain Level: 1 OBJECTIVE MEASURES WITH LEVEL OF FUNCTION: Hand Wrist AROM: Right Limitation Thumb AROM: Right Limitation UE AROM R Wrist Extension: 50 Degrees R Wrist Flexion: 42 Degrees Thumb AROM: Right Limitation Hand AROM R Thumb MP Flexion : 28 Degrees R Thumb IP Flexion : 49 Degrees R Thumb Radial Abduction: 65 Degrees R Thumb Palmar Abduction: 75 Degrees TREATMENT: Therapeutic Exercise: 1: wrist flex/ext deviation 2: tendon gliding 3: thumb flex ext opposition radial and palmar abduction and circumduction 4: soft sponge it security project manager, manuipulate and metal pickling equipment operator 5: medium sponge pieces metal pickling equipment operator 6: medium pegs in and out 7: notched peg board 8: scar massage Skilled Intervention: Patient was educated in proper exercise technique and purpose for exercises. Skilled judgment was provided in selection of appropriate interventions. Provided written instruction for home exercise program to facilitate proper performance and compliance. Modalities: Fluidotherapy Patient Position: right hand Temperature: 102 Minute(s): 10 Activity 1: AROM Skilled Intervention: Proper administration and selection of modality based on clinical presentation, deficits, and needs. Patient response monitored throughout treatment. 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] Allergies As of Date: 11/03/2020 Noted Allergy Reaction NABUMETONE 06/01/2005 8 - GI Upset Date Reviewed: 11/03/2020 Reviewed by: Dipesh Barcenas MD - Fully Assessed Prescriptions as of 11/03/2020 Sig: LOSARTAN 25 MG TABLET Take 1 (ONE) tab(s) Oral EVER* LATANOPROST 0.005 % EYE DROPS instill 1 (ONE) DROP IN BOTH * MELOXICAM 15 MG TABLET Take 1 tablet by mouth once d* ATORVASTATIN 40 MG TABLET Take 40 mg by mouth once lalo* ASPIRIN 81 MG TABLET,DELAYED * Take 1 tablet by mouth once d* Progress Notes: Fatoumata Jarrett OT/Tera 11/04/2020 1:27 PM Signed Episode Visit Count: 1 Therapist That Will Oversee The Plan Of Care: Darinel Ham Start of Care Date: 11/03/20 Onset Date: 10/07/20 Patient Identified by Name and Date of : Yes [facility] REHABILITATION AND SPORTS THERAPY OCCUPATIONAL THERAPY EVALUATION PLAN OF CARE: Assessment: Lidia Singh presents with the diagnosis of s/p CMC arthroplasty. He presents with impairments of AROM edema. He may benefit from skilled occupational therapy services to improve function so pt can return to work. Prognosis: Good Good due to: current objective clinical presentation Goals for Episode of Care created on 11/03/20 through 01/03/21 Patient will report a good understanding of diagnosis and OT recommendations for progression of program. Patient will demonstrate independence with ongoing home recommendations/exerci se program throughout therapy plan of care. Patient will independently demonstrate correct application of CUSTOM orthosis and verbalize understanding of proper wear/care. Patient will report a good understanding of edema control, scar / wound management throughout therapy plan of care to promote non-adherent / non-tender soft tissue. Patient Goals: to resume function and return to work eright handed employeed as [employer] Planned Interventions, Frequency, and Duration: Current Frequency: 1x/week Duration: 6 weeks Total Number of Visits Planned: 6 Planned Treatment Interventions: Custom orthosis fabrication;Prefabrica carmita orthosis fitting;Manual therapy (07501);Self-fdc management (62491) PLAN FOR NEXT VISIT: check splint progress scar work trial fluidoi Patient demonstrates good understanding of plan of care and treatment. The above goals and plan of care were discussed and agreed upon by patient/family. 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 5 points is clinically meaningfully difference Percentiles provide an indication of how the patient's score ranks in relation to the general population. Higher percentile rankings indicate better function/quality of life. 50th percentile is the average of the general population and indicates half of respondents had a worse score. T-scores: mean of general population = 50. 5 points is clinically meaningfully difference Percentiles provide an indication of how the patient's score ranks in relation to the general population. Higher percentile rankings indicate better function/quality of life. 50th percentile is the average of the general population and indicates half of respondents had a worse score. OBJECTIVE MEASURES WITH LEVEL OF FUNCTION: Hand Skin / Wound: Scar Scar: Tender;Mild adherance Edema Location: right hand Edema Description: Moderate Edema Measurements: Wrist (DWC) (cm);Digits R Wrist (DWC) (cm): 16.2 L Wrist (DWC) (cm): 15.2 Edema - Digits: Thumb R Thumb P1 (cm): 7.2 cm L Thumb IP Joint (cm): 6.7 cm Wrist AROM: Right Limitation Right Hand AROM: All Digits Thumb AROM: Right Limitation Sensation: Reports tingling or numbness (in DRSN distribution) Provocative Testing: Tinel's Tinel's Sign: Right positive UE AROM R Wrist Extension: 40 Degrees R Wrist Flexion: 30 Degrees R Wr (more content not included)... [facility] XR HAND 3V PA/LAT/OBL RTon 0 11-03-2020 XR HAND 3V PA/LAT/OBL RT * * *Final Report* * * DATE OF EXAM: Nov 03 2020 9:58AM O [id number] - XR HAND 3V PA/LAT/OBL RT / PROCEDURE REASON: M19.041-Localized primary osteoarthritis of right hand * * * * Physician Interpretation * * * * RIGHT hand EXAM DATE/TIME: 11/03/2020 9:58 AM HISTORY: 65 years old Clinical information: Localized primary osteoarthritis of right hand OSTEOARTHRITIS Out of cast TECHNIQUE: Images: XR HAND 3V PA/LAT/OBL RT Comparison: None. RESULT: Findings: The trapezium is absent. Moderate narrowing of the navicular trapezoid joint space. Also appears to be narrowing of the first metacarpal carpal joint. There is narrowing of all interphalangeal joints. Moderate bony demineralization No fractures or dislocations are seen. IMPRESSION: Degenerative and postsurgical changes Plastics Bench Mechanic: PSCLexi Transcribe Date/Time: Nov 03 2020 3:12P Dictated by : SARAHI GARCES DO This examination was interpreted and the report reviewed and electronically signed by: SARAHI GARCES DO on Nov 03 2020 3:13PM EST [id number] [facility] ANES POSTPROC EVALon 021 ANES POSTPROC EVAL HNO ID: [id number] Author: Miguel Bello MD Service: Anesthesiology Author Type: Anesthesiologist Type: Anesthesia Postprocedure Evaluation Filed: 10/07/2020 11:25 AM Note Text: POST ANESTHESIA EVALUATION NOTE : 1955 Procedure Summary Date: 10/07/20 [place] An[place]hesia Start: 837 Anesthesia Stop: 1021 Procedure: ARTHROPLASTY WRIST INTERPOSITION INTERCARPAL OR CARPOMETACARPAL (Right Wrist) Diagnosis: CMC arthritis Surgeons: Dipesh Barcenas Responsible Provider: Miguel Bello MD Anesthesia Type: MAC ASA Status: 3 Anesthesia Type: MAC Last vitals Vitals Value Taken Time BP 146/69 04/21/21 1059 Temp 36.4 ?C (97.5 ?F) 10/07/20 1018 Pulse 47 10/07/20 1059 Resp 16 10/07/20 1059 SpO2 95 % 10/07/20 1059 Post Anesthesia Patient Status Patient Evaluation: bedside. Anticipated Disposition: phase 2 then home. Neurological Status: aware and responsive. Pulmonary Status: breathing comfortably on room air Airway Control: returned to baseline unsupported. Cardiovascular Status: stable. Pain Management: clinically adequate Postoperative Hydration: acceptable. Intraoperative Events: no significant anesthesia events Post Operative Nausea/Vomiting Status: no significant post operative nausea or vomiting Anesthetic Observations: Recommendation: continue current plan of care. No complications documented. SIGNATURE: Miguel Bello MD PATIENT NAME: Lidia Singh DATE: October 07, 2020 TIME: 11:25 AM CSN: [id number] [facility] ANES PRE-OPon 10-07-2020 ANES PRE-OP HNO ID: [id number] Author: Miguel Bello MD Service: Anesthesiology Author Type: Anesthesiologist Type: Anesthesia Preprocedure Evaluation Filed: 10/07/2020 7:23 AM Note Text: ANESTHESIOLOGY DAY OF SURGERY NOTE : 1955 Procedure(s) (LRB): ARTHROPLASTY WRIST INTERPOSITION INTERCARPAL OR CARPOMETACARPAL (Right) Surgeon(s): Dipesh Barcenas Estimated body mass index is 25.69 kg/m? as calculated from the following: Height as of 09/28/20: 160 cm (5' 3"). Weight as of 09/28/20: 65.8 kg (145 lb). Most recent hematocrit and potassium results: Hematocrit 41.5 12/02/2015 Potassium 4.3 12/02/2015 Relevant Problems CARDIO (+) Essential hypertension, benign (+) PAD (peripheral artery disease) (HCC) NEURO-PSYCH (+) History of colonic diverticulitis I - PHYSICAL EVALUATION AIRWAY Patient intubated: No. Tracheostomy tube not present Mallampati: II. TM distance: >3 FB. Neck ROM: full ROM without neurological symptoms. Mouth opening: adequate. Short neck: no. Thick neck: no DENTAL Normal dental observations. Dental findings: teeth intact. Additional exam findings: no II - ANESTHESIA PLAN ASA Score: 3 Anesthetic Plan: MAC The patient is a current smoker. NPO Status: adequate Monitoring plan: standard ASA. Postoperative analgesic plan: parenteral or oral opioids and peripheral nerve block. Anesthetic Risks, Benefits, Alternatives, Personnel Discussed. Consent obtained from: patient.Patient / Surrogate agrees to blood products: blood products not planned DNR status not reviewed with patient and/or family prior to surgery. Significant changes in the patient condition since the History and Physical, not otherwise documented in primary service progress note: no. Potential Anesthesia issues that may suggest increased risk of complications or contraindication to planned procedure: none. No vitals data found for the desired time range. Facility-Administered Medications as of 10/07/2020 Medication Dose Route Frequency - lidocaine 10 mg/mL (1 %) 1-2 mg injection (XYLOCAINE) 0.1-0.2 mL INTRADERMAL PRN - lactated ringers iv infusion 5-30 mL/hr INTRAVENOUS CONTINUOUS - ceFAZolin iv piggyback 2 g in D5W (iso-osmotic) 100 mL (ANCEF) 2 g INTRAVENOUS Pre-Op Once Outpatient Medications as of 10/07/2020 Medication Sig - losartan (COZAAR) 25 mg tablet Take 1 (ONE) tab(s) Oral EVERY Day - latanoprost (XALATAN) 0.005 % ophthalmic solution instill 1 (ONE) DROP IN BOTH EYES NIGHTLY - meloxicam (MOBIC) 15 mg tablet Take 1 tablet by mouth once daily. - atorvastatin (LIPITOR) 40 mg tablet Take 40 mg by mouth once daily. - aspirin, enteric coated (ECOTRIN LOW STRENGTH) 81 mg EC tablet Take 1 tablet by mouth once daily. I have interviewed and examined the patient. I have reviewed the medical record and/or the pre-anesthesia evaluation, pertinent labs, and test results. This contains updated information obtained within 48 hours of Surgery/Procedure. SIGNATURE: Miguel Bello MD PATIENT NAME: Lidia Singh DATE: October 07, 2020 TIME: 7:22 AM CSN: [id number] [facility] NURSING PROGon 10-07-2020 NURSING PROG HNO ID: [id number] Author: Vy CaceresRn) LUCERO Blair Service: Nursing Author Type: Registered Nurse Type: Nursing Progress Note Filed: 10/07/2020 11:48 AM Note Text: Nursing Progress Note Patient Name: Lidia Singh Patient Location: [place] Surgery/[place] Surgery __ D/C with sling and ice pack in place. This note was completed by: yV Balir RN [facility] NURSING PROG HNO ID: [id number] Author: Timoteo (Rn) LUCERO Roman Service: Nursing Author Type: Registered Nurse Type: Nursing Progress Note Filed: 10/07/2020 8:12 AM Note Text: Dr. Bello at bedside for a Right axillary nerve block. RN at bedside, pt monitored throughout, BP 155/67 Pulse (!) 59 Temp 36.4 ?C (97.5 ?F) (Temporal Artery) Resp 16 Ht 160 cm (5' 2.99") Wt 65.8 kg (145 lb) SpO2 99% BMI 25.69 kg/m? .Pt tolerated procedure without difficulty. [facility] OPERATIVE NOon 10-07-2020 OPERATIVE NO HNO ID: [id number] Author: Dipesh Barcenas Service: Orthopaedic Surgery Author Type: Physician Type: Operative Report Filed: 10/07/2020 10:31 AM Note Text: OPERATIVE/PROCEDURE REPORT ? LOG ID: [id number] Surgery/Procedure Date: 10/07/2020 Incision/Procedure Start Time: 8:50 AM Incision Close/Procedure End Time: 10:08 AM Surgeon(s)/Procedurali st(s) and Vending Machine Assembler(s): Surgeon(s) and Role: * Dipesh Barcenas - Primary Physician Vending Machine Assembler: Monserrat Kessler (Pa) ? Procedure(s): Right thumb, CMC arthroplasty with ligament reconstruction and tendon interposition, palmaris longus. ? Anesthesia: General with regional. ? Procedure Details: PROCEDURE:? On 10/07/2020, the patient was identified in the preoperative area and? marked on the Right thumb accordingly.?Patient had a regional block placed per? the anesthetic team.? Pt. Received 2 g of Ancef within one hour of incision or tourniquet. Patient was placed in a supine position and placed an arm? board on the effected limb.? A well padded tourniquet was applied and set at 250 mmHg.? An appropriate time out was conducted and all were in agreement. Signed?consent form was on the chart and images were available for viewing. The upper extremity was then exsanguinated with an Esmarch bandage and the? tourniquet was applied at 250 mmHg.? A longitudinal incision was identified over? the dorsal portion of the CMC joint.? I made the incision approximately 3 cm, centered over this.? Furthermore, a palmar incision was marked over the palmaris longus tendon at the? flexure crease of the wrist.? Superficial skin incision was made with a 15 blade and this was? then bluntly dissected with Littler scissors.? I was able to identify the branches of the radial? sensory nerve and these were identified and protected with retraction throughout? the case.? I then came down through the interval of the APL and EPB tendons and? came directly down to the periosteum and divided the capsule over the top of the? joint, coming down on the trapezium.? The radial artery was identified clearly in? the proximal portion of the incision and protected throughout the case with a? Ragnell retractor.? I then painstakingly dissected the soft tissues off the? trapezium and identified all the borders of the bone including the surrounding? joint spaces.? The CMC joint showed no cartilage and sclerotic surface, bone on bone appearance. Large osteophyte in the gutter between first and second metacarpal heads as well as a large piece on the most radial side of the bone. Once the soft tissues were appropriately released from the? trapezium protecting the adjacent cartilage and soft tissues, I used a? reciprocating saw to place a scored cross in the bone quartering it.? I then? finished the osteotomies with a 1/4-inch osteotome.? I then removed, in a? piecemeal fashion, the trapezium while protecting the underlying FCR tendon.? This? was identified and shown to be in continuity.? I placed a 3-0 Tevdek suture? through the volar capsule.? I then focused my attention on preparing? the site for the tendon graft.? Starting on the dorsal surface of the thumb with? my exiting point just slightly on the volar side of the base of the metacarpal,? sequential drill bits were used to fashion the tunnel for the graft and to re-create the "beak ligament".? The? positioning was to my liking and the tunnel and the joint were copiously irrigated? to remove any bony debris.? Then focused my attention on the palmar incision which? was made again superficially with a 15 blade.? The central superficial vein was? identified and ligated with bipolar, and the palmaris longus tendon was identified? and freed of any of its soft tissue adhesions.? A whip stitch was placed with a 3-? 0 Maxon suture and the tendon was divided at the wrist crease and a tendon? stripper was then passed atraumatically, retrieving an excellent palmaris graft.? Some of the muscle portion was appropriately cleaned off, and then passed the? graft around the FCR tendon in the trapeziectomy site, bringing it up through the? drill hole, affectively recreating the beak ligament.? This was tied upon itself? and secured in place with the Tevdek suture.? A number of [id number] from? the tendon were secured, and the remaining portion of the tendon was rolled into? an "anchovy" and secured nicely down in the trapeziectomy site, successfully? interposing the tendon and securing it in place with the previously placed Tevdek? suture in the volar capsule.? This showed a nice suspension with recreation of the? beak ligament and interposition to my liking.? At this time, the tourniquet was? taken down and hemostasis was observed with bipolar electrocautery.? The wound was? copiously irrigated with normal saline and we began our closure.? I closed? the redundant dorsal capsule, in a "vest over pants" fashion with with 3-0 Bi (more content not included)... Normal [facility] Vital Signs Date Time Vital Sign Value Performing Clinician Facility 02-18-2025 11:00-0400 Body height 157.5 cm [employer] Work Phone: [facility] 02-18-2025 11:00-0400 Body mass index (BMI) [Ratio] 25.55 kg/m2 [employer] - LIGHT BULB ASSEMBLER Work Phone: [facility] 02-18-2025 11:00-0400 Body weight 63.37 kg Jana Negrete VOICE INSTRUCTOR - LIGHT BULB ASSEMBLER Work Phone: [facility] 02-18-2025 11:00-0400 Diastolic blood pressure 68 mm[Hg] Jana Negrete VOICE INSTRUCTOR - LIGHT BULB ASSEMBLER Work Phone: [facility] 02-18-2025 11:00-0400 Respiratory rate 18 /min Jana Negrete VOICE INSTRUCTOR - LIGHT BULB ASSEMBLER Work Phone: [facility] 02-18-2025 11:00-0400 Systolic blood pressure 130 mm[Hg] Jana Negrete VOICE INSTRUCTOR - LIGHT BULB ASSEMBLER Work Phone: [facility] 11-12-2024 13:38-0400 Body height 157.48 cm Jessica Baltes RACK WASHER-C Work Phone: [facility] 11-12-2024 13:36-0400 Body mass index (BMI) [Ratio] 25.2 kg/m2 Jessica Baltes RACK WASHER-C Work Phone: [facility] 11-12-2024 13:36-0400 Body temperature 97.9 [degF] Jessica Baltes RACK WASHER-C Work Phone: [facility] 11-12-2024 13:36-0400 Body weight 62.62 kg Jessica Baltes RACK WASHER-C Work Phone: [facility] 11-12-2024 13:36-0400 Diastolic blood pressure 60 mm[Hg] Jessica Baltes RACK WASHER-C Work Phone: [facility] 11-12-2024 13:36-0400 Heart rate 50 /min Jessica Baltes RACK WASHER-C Work Phone: [facility] 11-12-2024 13:36-0400 Respiratory rate 18 /min Jessica Baltes RACK WASHER-C Work Phone: [facility] 11-12-2024 13:36-0400 SaO2% (BldA) [Mass fraction] 97 % Jessica Baltes RACK WASHER-C Work Phone: [facility] 11-12-2024 13:36-0400 Systolic blood pressure 128 mm[Hg] Jessica Baltes RACK WASHER-C Work Phone: [facility] 09-26-2024 10:16-0400 Body temperature 97.9 [degF] Jessica Baltes RACK WASHER-C Work Phone: [facility] 09-26-2024 10:16-0400 Diastolic blood pressure 59 mm[Hg] Jessica Baltes RACK WASHER-C Work Phone: [facility] 09-26-2024 10:16-0400 Heart rate 60 /min Jessica Baltes RACK WASHER-C Work Phone: [facility] 09-26-2024 10:16-0400 Respiratory rate 16 /min Jessica Baltes RACK WASHER-C Work Phone: [facility] 09-26-2024 10:16-0400 SaO2% (BldA) [Mass fraction] 98 % Jessica Baltes RACK WASHER-C Work Phone: [facility] 09-26-2024 10:16-0400 Systolic blood pressure 142 mm[Hg] Jessica Baltes RACK WASHER-C Work Phone: [facility] 09-26-2024 09:11-0400 Body height 157.48 cm Jessica Baltes RACK WASHER-C Work Phone: [facility] 09-26-2024 09:11-0400 Body mass index (BMI) [Ratio] 25.9 kg/m2 Jessica Baltes RACK WASHER-C Work Phone: [facility] 09-26-2024 09:11-0400 Body weight 64.41 kg Jessica Baltes RACK WASHER-C Work Phone: [facility] 05-03-2024 13:36-0500 Body mass index (BMI) [Ratio] 26.6 kg/m2 Gilbert Rhodes MD Work Phone: [facility] 05-03-2024 13:36-0500 Body temperature 97.9 [degF] Gilbert Rhodes MD Work Phone: [facility] 05-03-2024 13:36-0500 Body weight 65.9 kg See-Sam Low MD Work Phone: [facility] 05-03-2024 13:36-0500 Diastolic blood pressure 58 mm[Hg] See-Sam Low MD Work Phone: [facility] 05-03-2024 13:36-0500 Heart rate 52 /min See-Sam Low MD Work Phone: [facility] 05-03-2024 13:36-0500 Respiratory rate 18 /min See-Sam Low MD Work Phone: [facility] 05-03-2024 13:36-0500 SaO2% (BldA) [Mass fraction] 98 % See-Sam Low MD Work Phone: [facility] 05-03-2024 13:36-0500 Systolic blood pressure 138 mm[Hg] See-Sam Low MD Work Phone: [facility] 02-23-2024 10:56-0400 Body mass index (BMI) [Ratio] 26.44 kg/m2 [address] 02-23-2024 10:56-0400 Body temperature 97.11 [degF] See-Sam Low MD Work Phone: [facility] 02-23-2024 10:56-0400 Body weight 65.5 kg Pul 8 [facility] 02-23-2024 10:56-0400 Diastolic blood pressure 52 mm[Hg] See-Sam Low MD Work Phone: [facility] 02-23-2024 10:56-0400 Heart rate 55 /min See-Sam Low MD Work Phone: [facility] 02-23-2024 10:56-0400 Respiratory rate 15 /min See-Sam Low MD Work Phone: [facility] 02-23-2024 10:56-0400 SaO2% (BldA) [Mass fraction] 99 % See-Sam Low MD Work Phone: [facility] 02-23-2024 10:56-0400 Systolic blood pressure 146 mm[Hg] Gilbert Rhodes MD Work Phone: [facility] 02-23-2024 10:00-0400 Body height 157.4 cm Pulm 8 [facility] 01-17-2024 13:37-0400 Body height 157.5 cm Ta Dover MD Work Phone: [facility] 01-17-2024 13:37-0400 Body mass index (BMI) [Ratio] 26.7 kg/m2 Ta Dover MD Work Phone: [facility] 01-17-2024 13:37-0400 Body temperature 97.3 [degF] Ta Dover MD Work Phone: [facility] 01-17-2024 13:37-0400 Body weight 66.22 kg Ta Dover MD Work Phone: [facility] 01-17-2024 13:37-0400 Diastolic blood pressure 64 mm[Hg] Ta Dover MD Work Phone: [facility] 01-17-2024 13:37-0400 Heart rate 52 /min Ta Dover MD Work Phone: [facility] 01-17-2024 13:37-0400 Respiratory rate 17 /min Ta Dover MD Work Phone: [facility] 01-17-2024 13:37-0400 Systolic blood pressure 132 mm[Hg] Ta Dover MD Work Phone: [facility] 01-02-2024 12:45-0400 Diastolic blood pressure 70 mm[Hg] Ta Dover MD Work Phone: [facility] [employer] 01-02-2024 12:45-0400 Heart rate 48 /min Ta Dover MD Work Phone: [facility] 01-02-2024 12:45-0400 Respiratory rate 16 /min Ta Dover MD Work Phone: [facility] [employer] 01-02-2024 12:45-0400 SaO2% (BldA) [Mass fraction] 97 % Ta Dover MD Work Phone: [facility] [employer] 01-02-2024 12:45-0400 Systolic blood pressure 157 mm[Hg] Ta Dover MD Work Phone: [facility] [employer] 01-02-2024 10:50-0400 Body temperature 97.9 [degF] Ta Dover MD Work Phone: [facility] [employer] 01-02-2024 06:38-0400 Body height 157.5 cm Ta Dover MD Work Phone: [facility] [employer] 01-02-2024 06:38-0400 Body mass index (BMI) [Ratio] 26.89 kg/m2 Ta Dover MD Work Phone: [facility] [employer] 01-02-2024 06:38-0400 Body weight 66.68 kg Ta Dover MD Work Phone: [facility] [employer] 12-11-2023 10:31-0400 Body height 161.3 cm Ta Dover MD Work Phone: [facility] [employer] 12-11-2023 10:31-0400 Body mass index (BMI) [Ratio] 25.46 kg/m2 Ta Dover MD Work Phone: [facility] [employer] 12-11-2023 10:31-0400 Body temperature 96.8 [degF] Ta Dover MD Work Phone: [facility] [employer] 12-11-2023 10:31-0400 Body weight 66.22 kg Ta Dover MD Work Phone: [facility] [employer] 12-11-2023 10:31-0400 Diastolic blood pressure 72 mm[Hg] Ta Dover MD Work Phone: [facility] [employer] 12-11-2023 10:31-0400 Heart rate 60 /min Ta Dover MD Work Phone: [facility] [employer] 12-11-2023 10:31-0400 Respiratory rate 17 /min Ta Dover MD Work Phone: [facility] 12-11-2023 10:31-0400 Systolic blood pressure 134 mm[Hg] Ta Dover MD Work Phone: [facility] 07-26-2023 08:55-0500 Diastolic Blood Pressure Non-Invasive 67 mm[Hg] KYLEE NERY DO [facility] 07-26-2023 08:55-0500 Heart rate 73 /min KYLEE NERY DO [facility] 07-26-2023 08:55-0500 Respiratory rate 14 /min KYLEE NERY DO [facility] 07-26-2023 08:55-0500 Systolic Blood Pressure Non-Invasive 139 mm[Hg] KYLEE NERY DO [facility] 07-26-2023 08:50-0500 Diastolic Blood Pressure Non-Invasive 76 mm[Hg] KYLEE NERY DO [facility] 07-26-2023 08:50-0500 Heart rate 61 /min KYLEE NERY DO [facility] 07-26-2023 08:50-0500 Respiratory rate 14 /min KYLEE NERY DO [facility] 07-26-2023 08:50-0500 Systolic Blood Pressure Non-Invasive 164 mm[Hg] KYLEE NERY DO [facility] 07-26-2023 08:45-0500 Diastolic Blood Pressure Non-Invasive 66 mm[Hg] KYLEE NERY DO [facility] 07-26-2023 08:45-0500 Heart rate 61 /min KYLEE NERY DO [facility] 07-26-2023 08:45-0500 Respiratory rate 14 /min KYLEE NERY DO [facility] 07-26-2023 08:45-0500 Systolic Blood Pressure Non-Invasive 142 mm[Hg] KYLEE NERY DO [facility] 07-26-2023 08:35-0500 Body temperature 97.88 [degF] KYLEE NERY DO [facility] 07-26-2023 08:30-0500 Respiratory Rate - Anes 23 br/min KYLEE NERY DO [facility] 07-26-2023 08:25-0500 Respiratory Rate - Anes 26 br/min KYLEE NERY DO [facility] 07-26-2023 07:40-0500 Body height 157.5 cm KYLEE NERY DO [facility] 07-26-2023 07:40-0500 Body weight 64.4 kg KYLEE NERY DO [facility] 07-26-2023 07:40-0500 Body weight 25.96 kg/m2 KYLEE NERY DO [facility] 07-26-2023 07:29-0500 Body height 157.5 cm KYLEE NERY DO [facility] 07-26-2023 07:29-0500 Body temperature 98.06 [degF] KYLEE NERY DO [facility] 07-26-2023 07:29-0500 Body weight 64.4 kg KYLEE NERY DO [facility] 07-26-2023 07:29-0500 Heart rate 61 /min KYLEE GABRIEL DO [facility] 02-12-2023 13:20-0400 Blood Pressure Cuff Size DAVE KENDALL MD [facility] 02-12-2023 13:20-0400 Blood Pressure Location DAVE KENDALL MD [facility] 02-12-2023 13:20-0400 Blood Pressure Method DAVE KENDALL MD [facility] 02-12-2023 13:20-0400 Body temperature 97.52 [degF] DAVE KENDALL MD [facility] 02-12-2023 13:20-0400 Diastolic Blood Pressure Non-Invasive 79 1 DAVE KENDALL MD [facility] 02-12-2023 13:20-0400 Heart rate 57 /min DAVE KENDALL MD [facility] 02-12-2023 13:20-0400 Respiratory rate 16 /min DAVE KENDALL MD [facility] 02-12-2023 13:20-0400 Systolic Blood Pressure Non-Invasive 175 1 DAVE KENDALL MD [facility] 01-24-2023 14:56-0400 Body height 161.3 cm Jana Negrete VOICE INSTRUCTOR - LIGHT BULB ASSEMBLER Work Phone: [facility] [employer] 01-24-2023 14:56-0400 Body mass index (BMI) [Ratio] 23.97 kg/m2 Jana Negrete VOICE INSTRUCTOR - LIGHT BULB ASSEMBLER Work Phone: [facility] [employer] 01-24-2023 14:56-0400 Body weight 62.37 kg Jana Negrete VOICE INSTRUCTOR - LIGHT BULB ASSEMBLER Work Phone: [facility] [employer] 01-24-2023 14:56-0400 Diastolic blood pressure 64 mm[Hg] Jana Negrete VOICE INSTRUCTOR - LIGHT BULB ASSEMBLER Work Phone: [facility] 01-24-2023 14:56-0400 Respiratory rate 18 /min Jana Negrete VOICE INSTRUCTOR - LIGHT B[employer] ASSEMBLER Work Phone: [facility] 01-24-2023 14:56-0400 Systolic blood pressure 136 mm[Hg] Jana Negrete VOICE INSTRUCTOR - LIGHT BULB ASSEMBLER Work Phone: [facility] 08-14-2022 20:43-0500 Heart rate 53 /min SAEED REICHFIELD DO [facility] 08-14-2022 20:43-0500 Respiratory rate 18 /min SAEED REICHFIELD DO [facility] 08-14-2022 18:54-0500 Body temperature 98.96 [degF] SAEDE REICHFIELD DO [facility] 08-14-2022 18:54-0500 Diastolic Blood Pressure Non-Invasive 75 1 SAEED REICHFIELD DO [facility] 08-14-2022 18:54-0500 Heart rate 69 /min SAEED REICHFIELD DO [facility] 08-14-2022 18:54-0500 Respiratory rate 18 /min SAEED REICHFIELD DO [facility] 08-14-2022 18:54-0500 Systolic Blood Pressure Non-Invasive 144 1 SAEED REICHFIELD DO [facility] 06-25-2022 09:33-0500 Body temperature 97.2 [degF] Berenice Saul APRN.LIGHT BULB ASSEMBLER Work Phone: [facility] 06-25-2022 09:33-0500 Body weight 61.78 kg Berenice Saul APRN.LIGHT BULB ASSEMBLER Work Phone: [facility] 06-25-2022 09:33-0500 Diastolic blood pressure 78 mm[Hg] Berenice Saul VOICE INSTRUCTOR.LIGHT BULB ASSEMBLER Work Phone: [facility] 06-25-2022 09:33-0500 Heart rate 60 /min Berenice Saul VOICE INSTRUCTOR.LIGHT BULB ASSEMBLER Work Phone: [facility] 06-25-2022 09:33-0500 Respiratory rate 21 /min Berenice Saul VOICE INSTRUCTOR.LIGHT BULB ASSEMBLER Work Phone: [facility] 06-25-2022 09:33-0500 SaO2% (BldA) [Mass fraction] 99 % Berenice Saul VOICE INSTRUCTOR.LIGHT BULB ASSEMBLER Work Phone: [facility] 06-25-2022 09:33-0500 Systolic blood pressure 148 mm[Hg] Berenice Saul VOICE INSTRUCTOR.LIGHT BULB ASSEMBLER Work Phone: [facility] 10-23-2021 11:01-0400 Body temperature 97.5 [degF] Lady Older VOICE INSTRUCTOR.LIGHT BULB ASSEMBLER Work Phone: [facility] 10-23-2021 11:01-0400 Body weight 60.51 kg Lady Older VOICE INSTRUCTOR.LIGHT BULB ASSEMBLER Work Phone: [facility] 10-23-2021 11:01-0400 Diastolic blood pressure 76 mm[Hg] Lady Older VOICE INSTRUCTOR.LIGHT BULB ASSEMBLER Work Phone: [facility] 10-23-2021 11:01-0400 Heart rate 54 /min Lady Older VOICE INSTRUCTOR.LIGHT BULB ASSEMBLER Work Phone: [facility] 10-23-2021 11:01-0400 Respiratory rate 16 /min Lady Older VOICE INSTRUCTOR.LIGHT BULB ASSEMBLER Work Phone: [facility] 10-23-2021 11:01-0400 SaO2% (BldA) [Mass fraction] 98 % Lady Older VOICE INSTRUCTOR.LIGHT BULB ASSEMBLER Work Phone: [facility] 10-23-2021 11:01-0400 Systolic blood pressure 142 mm[Hg] Lady Older VOICE INSTRUCTOR.LIGHT BULB ASSEMBLER Work Phone: [facility] Encounters Encounter Date Encounter Type Care Provider Facility Start: 02-18-2025 End: 02-18-2025 Office outpatient visit 15 minutes Jana Aden CNP Work Phone: [facility] Comment on above: Atherosclerosis of n ative arteries of extremities with intermittent claudication, bilateral legs (HCC) (Primary Dx); Aftercare following surgery of the circulatory system Start: 02-18-2025 End: 02-18-2025 ambulatory JESSICA STANFORD [facility] Start: 01-20-2025 End: 03-22-2025 Follow-up encounter Krystin Grey PA-C Work Phone: [facility] - [place] Comment on above: Vascular US lower ex tremity arterial duplex graft bilateral with RIMMA Start: 01-17-2025 End: 01-17-2025 Subsequent hospital visit by physician Krystin Grey PA-C Work Phone: [facility] V[facility] Lab Comment on above: Atherosclerosis of n ative arteries of extremities with intermittent claudication, bilateral legs (HCC) Start: 01-17-2025 End: 01-17-2025 ambulatory KRYSTIN GREY [facility] Start: 01-08-2025 End: 01-08-2025 Telemedicine consultation with patient Gilbert Rhodes MD Work Phone: Pulmonary Medicine Start: 01-08-2025 End: 01-08-2025 ambulatory Gilbert Rhodes MD Work Phone: Pulmonary Medicine Comment on above: Multiple lung nodule s (Primary Dx) Start: 01-08-2025 End: 01-08-2025 Telephone encounter Ta Dover MD Work Phone: [facility] Comment on above: Prior Authorization Start: 12-30-2024 [facility] Start: 12-30-2024 End: 12-30-2024 Subsequent hospital visit by physician Kayla [facility] ([facility]) Work Phone: Cat Scan Comment on above: Right upper lobe pul monary nodule [R91.1] Start: 11-13-2024 End: 11-13-2024 ambulatory Jessica Stanford RACK WASHER-C Work Phone: [facility] Work Phone: Start: 11-13-2024 End: 11-13-[address] Eugenio Mata MD -Laboratory Specimen Work Phone: Start: 11-12-[address] Eugenio Mata MD -[facility] Start: 11-12-2024 End: 11-12-[address] Eugenio Mata MD -[facility] Work Phone: Start: 11-12-2024 End: 11-13-2024 ambulatory Jessica Abdoulaye RACK WASHER-C Work Phone: [facility] Work Phone: Start: 09-26-2024 End: 09-26-2024 Emergency department patient visit Jessica Stanford RACK WASHER-C Work Phone: -Emergency Department Work Phone: Start: 08-27-2024 End: 08-27-2024 Telephone encounter Jenae Jang CT [id number] Comment on above: Appointment Start: 08-02-2024 End: 08-02-2024 ambulatory Gilbert Rhodes MD Work Phone: Pulmonary Medicine Comment on above: Right upper lobe pul monary nodule (Primary Dx) Start: 08-02-2024 End: 08-02-2024 Telemedicine consultation with patient Gilbert Rhodes MD Work Phone: Pulmonary Medicine Start: 07-26-2024 End: 07-26-[address] Gilbert Rhodes Facility:[facility] Start: 07-26-2024 End: 07-26-2024 Subsequent hospital visit by physician [facility] ([facility]) Work Phone: Cat Scan Comment on above: Right upper lobe pul monary nodule [R91.1] Start: 07-23-2024 End: 07-23-2024 Orders Only Krystin Grey PA-C Work Phone: [facility] [place] Comment on above: Atherosclerosis of n ative arteries of extremities with intermittent claudication, bilateral legs (HCC) (Primary Dx) Start: 07-22-2024 End: 07-22-2024 Subsequent hospital visit by physician Ta Dover MD Work Phone: [facility] Vascular Lab Comment on above: Atherosclerosis of n ative arteries of extremities with intermittent claudication, bilateral legs (HCC) Start: 07-22-2024 End: 07-22-2024 ambulatory TA DOVER [facility] Start: 07-03-2024 End: 07-07-2024 Outreach Lab JESSICA STANFORD VOICE INSTRUCTOR-LIGHT BULB ASSEMBLER [facility] Start: 07-03-2024 End: 07-07-2024 ambulatory JESSICA STANFORD VOICE INSTRUCTOR-LIGHT BULB ASSEMBLER Facility:[facility] Start: 07-03-2024 End: 07-03-2024 Patient encounter procedure JESSICA STANFORD VOICE INSTRUCTOR-LIGHT BULB ASSEMBLER [facility] Start: 05-03-2024 End: 05-03-2024 Patient encounter procedure Gilbert Rhodes MD Work Phone: Pulmonary Medicine Comment on above: Right upper lobe pul monary nodule (Primary Dx) Start: 05-03-2024 End: 05-03-[address] Gilbert Rhodes Facility:[facility] Start: 05-03-2024 End: 05-03-2024 Subsequent hospital visit by physician [facility] Work Phone: Radiology Comment on above: Right upper lobe pul monary nodule [R91.1] Start: 03-24-2024 End: 03-25-2024 ambulatory Gilbert Rhodes MD Work Phone: Pulmonary Medicine Start: 03-24-2024 End: 03-25-2024 Patient encounter procedure Gilbert Rhodes MD Work Phone: Pulmonary Medicine Comment on above: About the appointmen t Start: 03-22-2024 End: 03-22-2024 Telephone encounter Dmitry DASILVA Admitting Start: 03-18-2024 End: 03-18-2024 ambulatory Jessica Stanford RACK WASHER Facility:[facility] Start: 03-14-2024 End: 03-14-2024 Telephone encounter Gilbert Rhodes MD Work Phone: Pulmonary Medicine Comment on above: Orders Start: 02-28-2024 End: 02-28-2024 Telephone encounter Gilbert Rhodes MD Work Phone: Pulmonary Medicine Comment on above: Requested Images Start: 02-23-2024 End: 02-23-2024 ambulatory [facility]m [facility] Medicine Comment on above: Spirometry Start: 02-23-2024 End: 02-23-2024 Patient encounter procedure [facility] Pulmonary Medicine Comment on above: Nodule of upper lobe of right lung (Primary Dx); Former smoker Start: 02-23-2024 End: 02-23-2024 Patient encounter status [facility] Start: 02-20-2024 End: 02-20-2024 ambulatory JESSICA STANFORD VOICE INSTRUCTOR-LIGHT BULB ASSEMBLER Facility:[facility] Start: 02-20-2024 End: 02-20-2024 Patient encounter procedure JESSICA STANFORD VOICE INSTRUCTOR-LIGHT BULB ASSEMBLER [facility] Start: 02-09-2024 End: 02-09-2024 ambulatory JESSICA STANFORD VOICE INSTRUCTOR-LIGHT BULB ASSEMBLER Facility:[facility] Start: 02-09-2024 End: 02-09-2024 Patient encounter procedure JESSICA ABDOULAYE VOICE INSTRUCTOR-LIGHT BULB ASSEMBLER [facility] Start: 02-02-2024 End: 02-02-2024 ambulatory Jessica Stanford RACK WASHER Facility:[facility] Start: 01-30-2024 Telephone encounter Dmitry Prieto Admitting Comment on above: Appointment Start: 01-26-2024 Orders Only Michael hawthorne MD Work Phone: Pulmonary Medicine Comment on above: Pre-op chest exam (P rimary Dx) Start: 01-26-2024 Patient encounter status Hansel Curran MD Work Phone: [facility] Work Phone: Start: 01-23-2024 Telephone encounter Felicitas Prajapati RN [facility] Start: 01-22-2024 Telephone encounter Felicitas Prajapati RN A dmitting Comment on above: Creative Designer - O ther Start: 01-19-2024 Telephone encounter Felicitas Prajapati RN [facility] Comment on above: Referral Information Start: 01-18-2024 End: 01-18-2024 Subsequent hospital visit by physician Ta Dover MD Work Phone: [facility] Vascular Lab Comment on above: Atherosclerosis of n ative arteries of extremities with intermittent claudication, bilateral legs (HCC) Start: 01-17-2024 End: 01-17-2024 Office outpatient visit 10 minutes Ta Dover MD Work Phone: [facility] [place] Comment on above: Atherosclerosis of n ative arteries of extremities with intermittent claudication, bilateral legs (HCC) (Primary Dx) Start: 01-09-2024 End: 01-09-2024 ambulatory Estiven Chi Eliud Facility:[facility] Start: 01-02-2024 End: 01-02-2024 Subsequent hospital visit by physician Ta Dover MD Work Phone: [facility] Comment on above: Atherosclerosis of n ative arteries of extremities with intermittent claudication, bilateral legs (HCC) (Primary Dx) Start: 12-19-2023 End: 12-19-2023 ambulatory Isaias Franz Facility:[facility] Start: 12-15-2023 End: 12-15-2023 ambulatory JESSICA STANFORD VOICE INSTRUCTOR-LIGHT BULB ASSEMBLER Facility:[facility] Start: 12-15-2023 End: 12-15-2023 Patient encounter procedure JESSICA STANFORD VOICE INSTRUCTOR-LIGHT BULB ASSEMBLER [facility] Start: 12-13-2023 End: 12-13-2023 ambulatory Krystin Tejada PA-C Work Phone: [facility] Start: 12-11-2023 End: 12-11-2023 ambulatory Ta Dover MD Work Phone: [facility] [place] Comment on above: Atherosclerosis of n ative arteries of extremities with intermittent claudication, bilateral legs (HCC) (Primary Dx) Start: 12-11-2023 End: 12-11-2023 Orders Only Ta Dover MD Work Phone: [facility] Start: 12-11-2023 End: 12-11-2023 Office outpatient visit 25 minutes Ta Dover MD Work Phone: [facility] Vascular Surgery Comment on above: Atherosclerosis of n ative arteries of extremities with intermittent claudication, bilateral legs (HCC) (Primary Dx) Start: 12-06-2023 End: 12-06-2023 Subsequent hospital visit by physician Jana Negrete APRN - LIGHT BULB ASSEMBLER Work Phone: [facility] [place] Comment on above: Atherosclerosis of n ative arteries of extremities with intermittent claudication, bilateral legs (HCC); Aftercare following surgery of the circulatory system Start: 11-16-2023 Orders Only Jana Negrete VOICE INSTRUCTOR - LIGHT BULB ASSEMBLER Work Phone: [facility] Center Comment on above: Atherosclerosis of n ative arteries of extremities with intermittent claudication, bilateral legs (HCC) (Primary Dx); Aftercare following surgery of the circulatory system; Pre-procedure lab exam Start: 11-16-2023 Patient encounter status Aurora townsend Rubina VOICE INSTRUCTOR - LIGHT BULB ASSEMBLER Work Phone: [facility] Start: 11-14-2023 End: 11-14-2023 Subsequent hospital visit by physician Krystin Tejada PA-C Work Phone: [facility] Vascular Lab Comment on above: Atherosclerosis of n ative arteries of extremities with intermittent claudication, bilateral legs (HCC) Start: 11-06-2023 End: 12-15-2023 Telephone encounter Krystin Tejada PA-C Work Phone: [facility] Central Scheduling Comment on above: Central Scheduling ( [facility] US scheduled) Start: 09-29-2023 Telephone encounter Krystin gomez PA-C Work Phone: [facility] Central Scheduling Start: 07-26-2023 End: 07-26-2023 ambulatory KYLEE GABRIEL DO Facility:B Start: 07-26-2023 End: 07-26-2023 Minor Procedure KYLEE GABRIEL DO [facility] Start: 06-07-2023 End: 06-07-[address] [facility] Work Phone: Start: 06-07-2023 End: 06-07-[address] [facility] Work Phone: Start: 03-14-2023 End: 03-14-2023 Subsequent hospital visit by physician Xr [facility] Work Phone: Radiology Comment on above: Acute left-sided low back pain without sciatica [M54.50] Start: 02-12-2023 End: 02-12-2023 Emergency department patient visit DAVE KENDALL MD [facility] Start: 01-24-2023 End: 01-24-2023 Office outpatient visit 15 minutes Jana Negrete VOICE INSTRUCTOR - LIGHT BULB ASSEMBLER Work Phone: [facility] Vascular Surgery Comment on above: Atherosclerosis of n ative arteries of extremities with intermittent claudication, bilateral legs (HCC) (Primary Dx) Start: 12-27-2022 End: 12-27-2022 Patient encounter procedure JESSICA STANFORD VOICE INSTRUCTOR-LIGHT BULB ASSEMBLER [facility] Start: 10-26-2022 Orders Only Kyrstin Hernandez Work Phone: [facility] Vascular Surgery Comment on above: Atherosclerosis of n ative arteries of extremities with intermittent claudication, bilateral legs (HCC) (Primary Dx) Start: 10-24-2022 End: 10-24-2022 Subsequent hospital visit by physician Krystin Tejada PA-C Work Phone: [facility] Vascular Lab Comment on above: Atherosclerosis of n ative arteries of extremities with intermittent claudication, bilateral legs (HCC) Start: 09-17-2022 End: 09-17-2022 Patient encounter procedure JESSICA STANFORD VOICE INSTRUCTOR-LIGHT BULB ASSEMBLER [facility] Start: 09-12-2022 End: 09-12-2022 Patient encounter procedure JESSICA STANFORD VOICE INSTRUCTOR-LIGHT BULB ASSEMBLER [facility] Start: 08-14-2022 End: 08-14-2022 Emergency department patient visit SAEED LYONS DO [facility] Start: 06-25-2022 End: 06-25-2022 Patient encounter procedure Berenice Kg VOICE INSTRUCTOR.LIGHT BULB ASSEMBLER Work Phone: [facility] Comment on above: Acute otitis media, left (Primary Dx) Start: 04-18-2022 End: 04-18-2022 Patient encounter procedure Dipesh Barcenas MD Work Phone: Orthopaedics Comment on above: Trochanteric bursiti s of right hip (Primary Dx); Hip pain Start: 04-15-2022 End: 04-15-2022 Subsequent hospital visit by physician Vianey [facility] Work Phone: Radiology Comment on above: Pain in right hip [M 25.551] Start: 04-13-2022 Transcribe Orders Ta green MD Work Phone: [facility] Central Scheduling Comment on above: Atherosclerosis of n ative arteries of extremities with intermittent claudication, bilateral legs (HCC) (Primary Dx) Start: 03-19-2022 End: 03-19-[address] ADARSH TELLES MD [facility] Start: 01-03-2022 End: 01-03-2022 Subsequent hospital visit by physician Ta Dover MD Work Phone: [facility] Comment on above: Atherosclerosis of n ative arteries of extremities with intermittent claudication, bilateral legs (HCC) Start: 12-27-2021 End: 12-27-2021 Subsequent hospital visit by physician Ta Dover MD Work Phone: [facility] Vascular Lab Comment on above: Atherosclerosis of n ative arteries of extremities with intermittent claudication, bilateral legs (HCC) Start: 10-23-2021 End: 10-23-2021 Patient encounter procedure Lady Taveras VOICE INSTRUCTOROscarLIGHT BULB ASSEMBLER Work Phone: [facility] Comment on above: Acute otitis media, left (Primary Dx) Start: 10-06-2021 End: 10-06-2021 Patient encounter procedure Mikael Anderson MD Work Phone: Dermatology Comment on above: Seborrheic keratoses (Primary Dx); Solar lentigo; Multiple benign nevi; History of melanoma Start: 09-25-2021 End: 09-25-2021 Patient encounter procedure JESSICA STANFORD VOICE INSTRUCTOR-LIGHT BULB ASSEMBLER [facility] Start: 09-14-2021 Telephone encounter Mikael martinez MD Work Phone: [facility] [place] Comment on above: Appointment Start: 09-13-2021 End: 09-13-[address] ADARSH TELLES MD [facility] Start: 09-02-2021 End: 09-02-[address] ADARSH TELLES MD [facility] Start: 05-19-2021 End: 05-19-2021 Patient encounter procedure JESSICA STANFORD VOICE INSTRUCTOR-LIGHT BULB ASSEMBLER [facility] Start: 05-19-2021 End: 05-19-[address] ADARSH TELLES MD [facility] Start: 12-04-2020 End: 12-04-2020 Subsequent hospital visit by physician Harjinder CORTEZ Vascular Lab Comment on above: Atherosclerosis of n ative arteries of extremities with intermittent claudication, bilateral legs (HCC) Start: 11-27-2019 End: 11-27-2019 Subsequent hospital visit by physician Ta Dover Work Phone: [facility] Comment on above: Atherosclerosis of n ative arteries of extremities with intermittent claudication, bilateral legs (HCC) Procedures Date Procedure Procedure Detail Performing Clinician Start: 02-18-2025 Follow-up visit Follow-up JANA NEGRETE Start: 01-17-2025 Dup-scan lxtr art/ar tl bpgs compl bi study Krystin Grey PA-C Work Phone: Start: 11-13-2024 Measurement of occul t blood in stool specimen using immunoassay Jessica Delta ID RACK WASHER-C Work Phone: Start: 11-12-2024 Assay of prostate sp ecific antigen total Jessica Delta ID RACK WASHER-C Work Phone: Comment on above: This test was perfor med using the [employer] tPSA method. Measured values of a patient sample can vary depending on the testing procedure used. PSA values determined on patient samples by different testing procedures cannot be used interchangeably. If there is a change in PSA assays while monitoring therapy, sequential testing should be performed to confirm baseline values. Start: 11-12-2024 Estimated creatinine clearance Jessica Stanford RACK WASHER-C Work Phone: Start: 07-26-2024 Ct thorax w/o contra st material Gilbert Rhodes MD Work Phone: Start: 07-22-2024 Dup-scan lxtr art/ar tl bpgs compl bi study Ta Dover MD Work Phone: Start: 02-23-2024 End: 02-23-2024 Co diffusing capacity Michael Curran MD Work Phone: Start: 01-18-2024 Dup-scan lxtr art/ar tl bpgs uni/lmtd study Ta Dover MD Work Phone: Start: 01-02-2024 FL GUIDANCE OR USE O NLY - NON-RESULTABLE Ta Dover MD Work Phone: Start: 01-02-2024 Ecg routine ecg w/le ast 12 lds trcg only w/o i&r Ta Dover MD Work Phone: Start: 12-11-2023 TEST AUTHORIZATION (QUEST) Ta Dover MD Work Phone: Start: 11-14-2023 Dup-scan lxtr art/ar tl bpgs compl bi study Krystincontreras Tejada PA-C Work Phone: Start: 10-17-2023 Measurement of renal function Jessica Stanford RACK WASHER-C Work Phone: Comment on above: GFR Calc Start: 06-21-2023 Biopsy of skin KYLEE Cruz DO Comment on above: [facility] [place] Start: 03-14-2023 Radex spine lumbosac ral 2/3 views Cherelle BENAVIDEZ-C Work Phone: Start: 12-17-2022 CT of lungs KYLEE GABRIEL DO Comment on above: 4mm nodule is now 6 mm, repeat i 6 months Start: 10-24-2022 Dup-scan lxtr art/ar tl bpgs compl bi study Krystin Terrell ABBOTT Work Phone: Start: 04-15-2022 Radex hip unilateral with pelvis 2-3 views Dipesh Barcenas MD Work Phone: Start: 01-03-2022 Creatinine blood Ta Dover MD Work Phone: Start: 12-27-2021 Dup-scan lxtr art/ar tl bpgs compl bi study Ta Dover MD Work Phone: Start: 12-31-2020 Prostatectomy JESSICA GOMEZ VOICE INSTRUCTOR-LIGHT BULB ASSEMBLER Start: 12-04-2020 Dup-scan lxtr art/ar tl bpgs compl bi study Harjinder BENAVIDEZ Start: 11-09-2020 Ultrasonography by transrectal approach JESSICA STANFORD VOICE INSTRUCTOR-LIGHT BULB ASSEMBLER Start: 03-15-2018 Colonoscopy and biop sy of colon JESSICA STANFORD VOICE INSTRUCTOR-LIGHT BULB ASSEMBLER Start: 10-19-2017 Glaucoma screening JESSICA STANFORD VOICE INSTRUCTOR-LIGHT BULB ASSEMBLER Comment on above: [facility] Start: 10-19-2017 Ophthalmic examinati on and evaluation JESSICA STANFORD VOICE INSTRUCTORShiny AdsLIGHT BULB ASSEMBLER Comment on above: [facility] Start: 02-02-2016 Adult depression scr eening assessment Mikael Anderson MD Work Phone: Start: 06-19-2013 Bypass graft JESSICA Powell VOICE INSTRUCTOREdgeConneX Comment on above: left leg only both legs Start: 11-17-2012 Structure of right l ower leg (body structure) JESSICA STANFORD VOICE INSTRUCTORShiny AdsLIGHT BULB ASSEMBLER Comment on above: right leg bypass Start: 06-19-2010 Laminectomy JESSICA Powell VOICE INSTRUCTORShiny AdsLIGHT BULB ASSEMBLER Start: 03-06-2010 Lipid 1996 panel - S teressa or Tamiko Prajapati RN Start: 06-19-2008 Laminectomy JESSICA Powell VOICE INSTRUCTORShiny AdsLIGHT BULB ASSEMBLER Start: 12-14-2006 End: 12-14-2006 Colonoscopy JESSICA STANFORD VOICE INSTRUCTORShiny AdsLIGHT BULB ASSEMBLER Start: 06-19-2005 Screening colonoscopy Jessika STANFORD VOICE INSTRUCTORShiny AdsLIGHT BULB ASSEMBLER Start: 06-19-2004 Excision of colon JESSICA STANFORD VOICE INSTRUCTORShiny AdsLIGHT BULB ASSEMBLER Byp fem-ant tibl pst tibl proneal art/oth dstl JESSICA STANFORD VOICE INSTRUCTORShiny AdsNEW [facility] Carpal tunnel syndro me of left wrist (disorder) JESSICA STANFORD VOICE INSTRUCTORShiny AdsLIGHT BULB ASSEMBLER Carpal tunnel syndro me of right wrist (disorder) JESSICA STANFORD VOICE INSTRUCTORShiny AdsLIGHT BULB ASSEMBLER Excision of melanoma JESSICA CORRALES VOICE INSTRUCTORShiny AdsLIGHT BULB ASSEMBLER Neuroplasty &/transp os median nrv carpal tunne JESSICA STANFORD VOICE INSTRUCTORShiny AdsLIGHT BULB ASSEMBLER Tonsillectomy JESSICA WILL RN-LIGHT BULB ASSEMBLER Plan of Treatment Date Care Activity Detail Author Start: 12-10-2026 Diabetes Screening Diabetes Screenin g [facility] Start: 12-30-2025 Screening for malign ant neoplasm of lung Lung Cancer Screening [facility] Start: 07-26-2025 Screening for malign ant neoplasm of lung Lung Cancer Screening [facility] Start: 07-11-2025 End: 02-07-2026 CT Chest WO contrast CT CHEST WO IVCON Radiology Routine Multiple lung nodules Expected: 07/11/2025, Expires: 02/07/2026 [facility] Work Phone: Comment on above: Expected: 07/11/2025 , Expires: 02/07/2026 Start: 02-17-2025 COVID-19 Vaccine () COVID-19 Vaccine () [facility] Start: 02-17-2025 Influenza vaccination Influenza Vacc ine (#1) [facility] Start: 01-20-2025 End: 01-20-2025 Patient encounter procedure 01/20/2025 3:20 PM EDT Appointment [facility] Vascular Lab [address] [place] [address] Krystin Grey PA-C [address] [address] [facility] Vascular Lab Start: 01-08-2025 End: 01-08-2025 FQHC visit, estab pt 01/08/2025 3:30 PM EDT [facility] Pulmonary Medicine [address] [place] [address] Gilbert Rhodes MD [address] [place], [place] [id number] H&P Established Patient Virtual Visit Pulmonary Medicine Comment on above: H&P Established Hiral ent Virtual Visit Start: [facility] Start: 10-30-2024 End: 09-01-2025 CT Chest WO contrast CT CHEST WO IVCON Radiology Routine Right upper lobe pulmonary nodule Expected: 10/30/2024, Expires: 09/01/2025 [facility] Work Phone: Comment on above: Expected: 10/30/2024 , Expires: 09/01/2025 Start: 09-26-2024 [facility] Start: 08-03-2024 End: 06-02-2025 CT Chest WO contrast CT CHEST WO IVCON Radiology Routine Right upper lobe pulmonary nodule Expected: 08/03/2024, Expires: 06/02/2025 [facility] Work Phone: Comment on above: Expected: 08/03/2024 , Expires: 06/02/2025 Start: 08-02-2024 End: 08-02-2024 ambulatory 08/02/2024 4:30 PM EST [facility] Pulmonary Medicine [address] [place] [address] Gilbert Rhodes MD [address] [place] [address] EST Lung pt 3mo f/u w/Low See-Wee V.V Pulmonary Medicine Comment on above: EST Lung pt 3mo f/u w/Low See-Wee V.V Start: 07-26-2024 End: 07-26-2024 Patient encounter procedure 07/26/2024 3:40 PM EST Appointment Cat Scan [address] [place] [address] Right upper lobe pulmonary nodule [R91.1] Cat Scan Comment on above: Right upper lobe pul monary nodule [R91.1] Start: 07-22-2024 End: 07-22-2024 Patient encounter procedure 07/22/2024 2:20 PM EST Appointment [facility] Vascular Lab [address] [place] [address] [facility] Vascular Lab Start: 06-19-2024 Advance Directive Discussion Advance Directive Discussion [facility] Start: 06-19-2024 Medicare Advantage Annual Wellness Visit Medicare Advantage Annual Wellness Visit [facility] Start: 05-03-2024 End: 05-03-2024 Patient encounter procedure Radiology Comment on above: Right upper lobe pul monary nodule [R91.1] f/u Start: 02-23-2024 End: 02-23-2024 Patient encounter procedure 02/23/2024 11:00 AM EDT Office Visit Pulmonary Medicine [address] [address] Gilbert Rhodes MD [address] [place], [place] [phone] [facility] Pulmonary Medicine Comment on above: [facility] Start: 02-23-2024 End: 02-23-2024 ambulatory 02/23/2024 10:45 AM EDT Procedure Pulmonary Medicine [address] [address] 8, Pulm Fct Lab Main [address] [place] [address] Pre-op chest exam Pulmonary Medicine Comment on above: Pre-op chest exam Start: 02-23-2024 End: 02-23-2024 ambulatory Pulmonary Medicine Comment on above: Pre-op chest exam Start: 02-18-2024 Covid-19 Vaccine ( season) Covid-19 Vaccine ( season) [facility] Start: 02-18-2024 Covid-19 Vaccine ( season) Covid-19 Vaccine ( season) [facility] Start: 02-18-2024 Influenza vaccination Influenza Vacc ine (#1) [facility] Start: 01-18-2024 End: 01-18-2024 Patient encounter procedure 01/18/2024 4:20 PM EDT Appointment [facility] Vascular Lab [address] [place] [phone] Ta Dover MD [address] [facility] [address] [place] [address] [facility] Vascular Lab Start: 01-17-2024 End: 01-17-2024 Patient encounter procedure 01/17/2024 1:45 PM EDT Office Visit [facility] Center [address] [facility] [address] [place] [phone] Ta Dover MD [address] [facility] [address] [place], [place] [phone] [facility] Start: 01-02-2024 End: 01-02-2024 Admission to same day surgery center 01/02/2024 8:00 AM EDT - 01/02/2024 10:00 AM EDT Surgery [facility] MAIN OR [address] [place] [address] Ta Dover MD [address] [place] [id number] AORTOGRAM WITH BILATERAL LOWER EXTREMITY RUNOFF, POSSIBLE LEFT ILIAC STENT [02837 (CPT )] [facility] MAIN OR Comment on above: AORTOGRAM WITH BILAT ERAL LOWER EXTREMITY RUNOFF, POSSIBLE LEFT ILIAC STENT [89267 (CPT )] Start: 01-02-2024 End: 01-02-2024 Revsc opn/prq iliac art w/stnt plmt & angioplsty ILIAC COMMERCIAL ASSISTANT/STENT 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, bilateral legs (HCC) 01/02/2024 8:00 AM EDT [facility] Operating Room Start: 01-02-2024 End: 01-02-2024 Slctv cathj 2nd order abdl pel/lxtr art brnch PLACEMENT ARTERIAL CATHETER ABDOMINAL PELVIC OR LOWER EXTREMITY SECOND ORDER 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, bilateral legs (HCC) 01/02/2024 8:00 AM EDT [facility] Operating Room Start: 01-02-2024 Subsequent hospital visit by physician 01/02/2024 8:00 AM EDT Hospital Encounter [facility] MAIN OR [address] [place] [phone] Ta Dover MD [address] [place] [address] [facility] MAIN OR Start: 12-11-2023 End: 12-10-2024 Basic metabolic 1998 panel - Serum or Plasma Basic metabolic panel Lab Routine 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, bilateral legs (CMS/HCC) Expected: 12/11/2023 (Approximate), Expires: 12/10/2024 [facility] Comment on above: Expected: 12/11/2023 (Approximate), Expires: 12/10/2024 Start: 12-11-2023 End: 12-10-2024 Blood type and Crossmatch panel - Blood Type and Screen Lab Routine 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, bilateral legs (CMS/HCC) Expected: 12/11/2023 (Approximate), Expires: 12/10/2024 [facility] Comment on above: Expected: 12/11/2023 (Approximate), Expires: 12/10/2024 Start: 12-11-2023 End: 12-10-2024 CBC W Auto Differential panel - Blood CBC auto differential Lab Routine 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, bilateral legs (CMS/HCC) Expected: 12/11/2023 (Approximate), Expires: 12/10/2024 [facility] Work Phone: Comment on above: Expected: 12/11/2023 (Approximate), Expires: 12/10/2024 Start: 12-11-2023 End: 12-11-2023 Patient encounter procedure 12/11/2023 10:45 AM EDT Office Visit [facility] Vascular Surgery [address] [place] [address] [place] [phone] Ta Dover MD [address] [facility] [address] [place], [place] [phone] [facility]ascular Surgery Start: 12-06-2023 End: 12-06-2023 Patient encounter procedure 12/06/2023 2:30 PM EDT Appointment [facility] [address] [place] [address] Jana Negrete, VOICE INSTRUCTOR - LIGHT BULB ASSEMBLER [address] [place] [phone] [facility] Start: 11-16-2023 End: 11-15-2024 Creatinine [Mass/volume] in Serum or Plasma Creatinine, Serum Lab Routine 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, bilateral legs (CMS/HCC) Pre-procedure lab exam Expected: 11/16/2023 (Approximate), Expires: 11/15/2024 [facility] Comment on above: Expected: 11/16/2023 (Approximate), Expires: 11/15/2024 Start: 11-16-2023 End: 11-15-2024 CTA Thoracic and Abdominal Aorta and Bilateral Runoff Vessels WO and W contrast IV CTA aorta BL iliofemoral runoff w wo Imaging Routine 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, bilateral legs (CMS/HCC) Aftercare following surgery of the circulatory system Expected: 11/16/2023, Expires: 11/15/2024 [facility] Work Phone: Comment on above: Expected: 11/16/2023 , Expires: 11/15/2024 Start: 06-19-2023 Advance Directive Discussion Advance Directive Discussion [facility] Start: 06-19-2023 Medicare Advantage Annual Wellness Visit Medicare Advantage Annual Wellness Visit [facility] Start: 02-17-2023 COVID-19 Vaccine ( season) COVID-19 Vaccine ( season) [facility] Start: 02-17-2023 Influenza vaccination Influenza Vacc ine (#1) [facility] Start: 12-27-2022 End: 12-27-2022 Patient encounter procedure 12/27/2022 Office Visit Vascular Surgery Jana Negrete, GIA - LIGHT BULB ASSEMBLER [address] [place] [phone] [facility] Surgery Start: 06-19-2022 ADVANCE DIRECTIVE DISCUSSION ADVANCE DIRECTIVE DISCUSSION [facility] Start: 06-19-2022 [facility] Start: 02-17-2022 Influenza vaccination [facility] Start: 06-19-2021 ADVANCE DIRECTIVE DISCUSSION ADVANCE DIRECTIVE DISCUSSION [facility] Start: 06-19-2021 DEPRESSION ASSESSMENT DEPRESSION ASS ESSMENT [facility] Start: 02-27-2021 Pneumococcal 65+ yea rs Vaccine (3 - PPSV23 or PCV20) Pneumococcal 65+ years Vaccine (3 - PPSV23 or PCV20) [facility] Start: 02-27-2021 Pneumococcal Vaccine : 65+ Years (3 - PPSV23 if available, else PCV20) Pneumococcal Vaccine: 65+ Years (3 - PPSV23 if available, else PCV20) [facility] Start: 02-17-2021 Influenza vaccination INFLUENZA (#1) [facility] Start: 02-18-2020 Influenza vaccination Flu vacc ine (Season Ended) [place], [place] Start: 2019 Abdominal aortic aneurysm screening AAA screen [facility] Start: 2019 Pneumococcal 65+ yea rs Vaccine (1 of 1 - PPSV23) Pneumococcal 65+ years Vaccine (1 of 1 - PPSV23) [place], [place] Start: 2019 Pneumococcal 65+ yea rs Vaccine (2 of 2 - PPSV23) Pneumococcal 65+ years Vaccine (2 of 2 - PPSV23) [facility] Work Phone: Start: 2019 PNEUMOVAX AGE 65 AND OVER WITH 5YR LOOKBACK (#1) PNEUMOVAX AGE 65 AND OVER WITH 5YR LOOKBACK (#1) [facility] Start: 03-23-2019 DTaP/Tdap/Td vaccine (2 - Td or Tdap) DTaP/Tdap/Td vaccine (2 - Td or Tdap) [facility] Start: 03-23-2019 DTaP/Tdap/Td vaccine (2 - Td) DTaP/Tdap/Td vaccine (2 - Td) [place] Start: 03-23-2019 DTaP/Tdap/Td Vaccine s (2 - Td or Tdap) DTaP/Tdap/Td Vaccines (2 - Td or Tdap) [facility] Start: 03-23-2019 Urine microalbumin profile [facility] Start: 12-09-2018 Annual Wellness Visi t (AWV) Annual Wellness Visit (AWV) [place], [place] Start: 12-01-2018 DIABETES SCREEN DIABETES SCREEN [facility] Start: 02-04-2018 ANNUAL PCP TEAM FIELD INSTRUCTOR CARMEN DISEASE VISIT ANNUAL PCP TEAM CHRONIC DISEASE VISIT [facility] Start: 02-01-2017 Adult depression screening assessment DEPRESSION SCREENING [facility] Start: 12-14-2016 Screening for malign ant neoplasm of colon [facility] Start: 03-06-2015 Lipid panel Lipid Screening [facility] Start: 03-06-2015 LIPID SCREEN LIPID SCREEN [facility] Start: 03-06-2015 PROSTATE CANCER SCREENING DISCUSSION PROSTATE CANCER SCREENING DISCUSSION [facility] Start: 2014 RSV Immunization age d 60 or older (1 - 1-dose 60+ series) RSV Immunization aged 60 or older (1 - 1-dose 60+ series) [facility] Start: 2014 RSV Immunization for Adults (1 - Risk 60-74 years 1-dose series) RSV Immunization for Adults (1 - Risk 60-74 years 1-dose series) [facility] Start: 2014 RSV Vaccine (1 - 1-d ose 60+ series) RSV Vaccine (1 - 1-dose 60+ series) [facility] Start: 12-15-2011 Colon[facility] [facility] Start: 12-15-2011 COLORECTAL CANCER SCREENING COLORECTAL CANCER SCREENING [facility] Start: 12-15-2011 Screening for malign ant neoplasm of colon [facility] Start: 2009 Influenza vaccination LUNG CANCER [facility] Start: 2009 Screening for malign ant neoplasm of lung Low dose CT lung screening [facility] Work Phone: Start: 07-06-2006 FECAL OCCULT BLOOD FECAL OCCULT BLOO D [facility] Start: 07-06-2006 Screening for malign ant neoplasm of colon Fecal Occult Blood [facility] Start: 2004 Influenza vaccination LUNG CANCER [facility] Start: 2004 Screening for malign ant neoplasm of colon Colon cancer screen colonoscopy [place], [place] Start: 2004 Screening for malign ant neoplasm of lung Lung Cancer Screening [facility] Start: 2004 Shingles Vaccine (1 of 2) Shingles Vaccine (1 of 2) [facility] Start: 2004 SHINGRIX VACCINE (1 of 2) SHINGRIX VACCINE (1 of 2) [facility] Start: 2004 Zoster Vaccines (1 o f 2) Zoster Vaccines (1 of 2) [facility] Start: 1999 COLOGUARD (FIT-DNA) COLOGUARD (FIT-D NA) [facility] Start: [address] COLONOGRAPHY [facility] Start: 1999 Screening for malign ant neoplasm of colon [facility] Start: 1999 SIGMOIDOSCOPY SIGMOIDOSCOPY [facility] Start: 1994 Lipid panel Lipid screen [place], [place] Start: 1994 Prostate specific antigen measurement Prostate Specific Antigen (PSA) Screening or Monitoring [facility] Start: 1972 ANNUAL PCP TEAM FIELD INSTRUCTOR CARMEN DISEASE VISIT ANNUAL PCP TEAM CHRONIC DISEASE VISIT [facility] Start: 1972 Anxiety Screening Anxiety Screening [facility] Start: 1972 BP CONTROLLED (<130/80) BP CONTROLLE D (<130/80) [facility] Start: 1972 Depression Screening Depression Scre ening [facility] Start: 1972 Diabetes mellitus screening Diabetes Screening [facility] Start: 1972 HEPATITIS C SCREENING HEPATITIS C [facility] Start: 1972 Hepatitis C screening [facility] Start: 1969 HIV screening HIV screen [facility], [place] Start: 1966 COVID-19 Vaccine (1) COVID-19 Vaccin e (1) [facility] Work Phone: Start: 1966 Depression Screen Depression Screen [facility] Start: 1966 Depression Screening Depression Scre ening [facility] Start: 1964 Lipid panel [facility] Start: 1960 PNEUMOCOCCAL: 65+ (1 - PCV) PNEUMOCOCCAL: 65+ (1 - PCV) [facility] Start: 1959 COVID-19 VACCINE (1) COVID-19 VACCIN E (1) [facility] Start: 1954 COVID-19 Vaccine (#1) COVID-19 Vacci ne (#1) [facility] Start: 1954 Examination of skin Derm Melanoma Sk in Check [facility] Start: 1954 Abdominal aortic aneurysm screening [facility] Start: 1954 ABDOMINAL AORTIC ANEURYSM SCREENING ABDOMINAL AORTIC ANEURYSM SCREENING [facility] Start: 1954 Annual Wellness Visi t (AWV) Annual Wellness Visit (AWV) [facility] Start: 1954 Hepatitis B Vaccines (1 of 3 - 3-dose series) Hepatitis B Vaccines (1 of 3 - 3-dose series) [facility] Start: 1954 Hepatitis C screening Hepatitis C [place], [place] Start: 1954 Lipid panel Lipid Panel [facility] Start: 1954 Screening for malign ant neoplasm of colon [facility] End: 04-13-2025 CT Chest WO contrast CT CHEST WO IVCON Radiology Routine Right upper lobe pulmonary nodule 1 Occurrences starting 03/14/2024 until 04/13/2025 [facility] Work Phone: Comment on above: 1 Occurrences starti ng 03/14/2024 until 04/13/2025 CT Chest WO contrast CT CHEST WO IVCON Radiology Routine Right upper lobe pulmonary nodule 05/03/2024 12:49 PM EST [facility] Work Phone: CT Chest WO contrast CT CHEST WO IVCON Radiology Routine Right upper lobe pulmonary nodule 12/30/2024 3:56 PM EDT [facility] Work Phone: End: 12-06-2023 CTA Thoracic and Abdominal Aorta and Bilateral Runoff Vessels WO and W contrast IV [facility] Work Phone: Comment on above: Once for 1 Occurrenc es starting 12/06/2023 until 12/06/2023 ECG 12 lead ECG 12 lead CV E CG Routine 01/02/2024 6:46 AM EDT [facility] Work Phone: End: 02-24-2025 LUNG DIFFUSION CAPACITY (DLCO) LUNG DIFFUSION CAPACITY (DLCO) PFT Routine Pre-op chest exam 1 Occurrences starting 01/26/2024 until 02/24/2025 [facility] Comment on above: 1 Occurrences starti ng 01/26/2024 until 02/24/2025 LUNG DIFFUSION CAPAC ITY (DLCO) LUNG DIFFUSION CAPACITY (DLCO) PFT Routine Pre-op chest exam 02/23/2024 9:13 AM EDT [facility] Work Phone: End: 02-24-2025 LUNG VOLUMES LUNG VOLUMES PFT Routine Pre-op chest exam 1 Occurrences starting 01/26/2024 until 02/24/2025 [facility] Comment on above: 1 Occurrences starti ng 01/26/2024 until 02/24/2025 LUNG VOLUMES LUNG VOLUMES PFT Routine Pre-op chest exam 02/23/2024 9:13 AM EDT [facility] Work Phone: Measurement of occul t blood in stool specimen using immunoassay [facility] Patient Education ED Epistaxis (Adult) [facility] Work Phone: Patient referral [facility] Work Phone: Revsc opn/prq iliac art w/stnt plmt & angioplsty ILIAC COMMERCIAL ASSISTANT/STENT 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, bilateral legs (HCC) [facility] Operating Room End: 02-24-2025 SIX MINUTE WALK SIX MINUTE WALK PFT Routine Pre-op chest exam 1 Occurrences starting 01/26/2024 until 02/24/2025 [facility] Comment on above: 1 Occurrences starti ng 01/26/2024 until 02/24/2025 Slctv cathj 2nd orde r abdl pel/lxtr art brnch PLACEMENT ARTERIAL CATHETER ABDOMINAL PELVIC OR LOWER EXTREMITY SECOND ORDER 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, bilateral legs (HCC) [facility] Operating Room End: 02-24-2025 SPIROMETRY WITH DILATOR IF OBSTRUCTED SPIROMETRY WITH DILATOR IF OBSTRUCTED PFT Routine Pre-op chest exam 1 Occurrences starting 01/26/2024 until 02/24/2025 [facility] Work Phone: Comment on above: 1 Occurrences starti ng 01/26/2024 until 02/24/2025 SPIROMETRY WITH DILA TOR IF OBSTRUCTED SPIROMETRY WITH DILATOR IF OBSTRUCTED PFT Routine Pre-op chest exam 02/23/2024 9:13 AM EDT [facility] Work Phone: End: 11-27-2019 VL Lower Extremity Arteries Bilateral VL Lower Extremity Arteries Bilateral Imaging Routine 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, bilateral legs (HCC) 1 Occurrences starting 11/27/2019 until 11/27/2019 [place], [place] Comment on above: 1 Occurrences starti ng 11/27/2019 until 11/27/2019 VL Lower Extremity Arteries Bilateral VL Lower Extremity Arteries Bilateral Imaging Routine 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, bilateral legs (HCC) 11/27/2019 1:51 PM EDT [place], [place] Immunizations Immunization Date Immunization Notes Care Provider Anna mohan 07-03-2024 influenza, high dose seasonal, preservative-free; Translations: [Fluad PF Prefilled Syringe ] JESISCA STANFORD VOICE INSTRUCTOR-LIGHT BULB ASSEMBLER [facility] 07-03-2024 influenza virus vaccine, unspecified formulation Ct (I-Stat) Work Phone: [facility] 06-03-2023 influenza virus vaccine, unspecified formulation KYLEE GABRIEL DO [facility] 06-03-2023 RSV vaccine preF3, recombinant KYLEE GABRIEL DO [facility] 05-04-2022 pneumococcal polysaccharide vaccine, 23 valent; Translations: [Pneumovax 23] [facility] Comment on above: Early/Late Reason: E tang/Late Reason: Other: 05-04-2022 influenza, high dose seasonal, preservative-free [facility] Comment on above: Early/Late Reason: E tang/Late Reason: Other: 05-04-2022 influenza virus vaccine, unspecified formulation Jana Negrete VOICE INSTRUCTOR - LIGHT BULB ASSEMBLER Work Phone: [facility] 03-19-2020 Influenza virus vaccine [facility] 02-28-2020 pneumococcal conjuga te vaccine, 13 valent; Translations: [Prevnar 13] JESSICA STANFORD VOICE INSTRUCTOR-LIGHT BULB ASSEMBLER [facility] 02-28-2020 influenza, injectabl e, quadrivalent, preservative free; Translations: [Fluarix PF Quadrivalent ] JESSICA STANFORD VOICE INSTRUCTOR-LIGHT BULB ASSEMBLER [facility] 02-28-2020 influenza virus vaccine, unspecified formulation Ta Dover MD Work Phone: [facility] 03-30-2018 influenza virus vaccine, unspecified formulation JESSICA STANFORD VOICE INSTRUCTOR-LIGHT BULB ASSEMBLER [facility] 03-30-2018 influenza, injectabl e, quadrivalent, preservative free [facility] 04-06-2016 influenza, injectabl e, quadrivalent, preservative free [facility] 03-20-2013 Influenza virus vaccine [facility] 03-20-2013 influenza virus vaccine, unspecified formulation JESSICA ABDOULAYE VOICE INSTRUCTOR-LIGHT BULB ASSEMBLER [facility] 03-20-2013 pneumococcal polysaccharide vaccine, 23 valent JESSICA STANFORD VOICE INSTRUCTOR-LIGHT BULB ASSEMBLER [facility] 03-20-2013 pneumococcal vaccine , unspecified formulation [facility] 04-05-2010 influenza virus vaccine, unspecified formulation Mikael Anderson MD Work Phone: [facility] 03-23-2009 influenza virus vaccine, unspecified formulation Mikael Anderson MD Work Phone: [facility] Work Phone: 03-23-2009 tetanus toxoid, redu renee diphtheria toxoid, and acellular pertussis vaccine, adsorbed Mikael Anderson MD Work Phone: [facility] Work Phone: Payers Date Payer Category Payer Self-pay [id number] 2023 Medicare HMO ANTHEM MEDICARE ADVANTAGE [id number] 2021 Medicare [id number] 2019 Unknown [id number] 2018 Medicare BCBS MEDICARE AN THEM MEDIBLUE ESSENTIAL/PLUS xxxxxxxxxxxx 2018-Present [address] [address] [place] [address] xxxxxxxxxxxx [id number] 2017 Medicare (Managed Care) ANTH MEDICARE ADVANTAGE HMO [id number] 2017 Unknown ANTHEM BLUE CROS S AND BLUE SHIELD ANTHEM MEDIBLUE HMO [id number] 2017-Present [phone] [address] [place] [address] O [id number] 2017 Unknown [id number]. [id number] 2017 Medicare [id number] 2015 Medicare MEDICARE PART A B [id number] 1954 Unknown [id number] [id number]. 627 1954 Unknown [id number] 2.16.840.1.439290.3.579.2. 627 1954 Unknown [id number] 2.16.840.1.111277.3.579.2. 627 1954 Unknown [id number] 2.16.840.1.943676.3.579.2. 627 1954 Unknown [id number] 2.16.840.1.304275.3.579.2. 627 1954 Unknown [id number] 2.16.840.1.328053.3.579.2. 627 Unknown [id number] 2.16.840.1.835425.3.579.2. 462 Unknown [id number] 2.16.840.1.197941.3.579.2. 462 Unknown [id number] 2.16.840.1.626886.3.579.2. 462 Unknown [id number] 2.16.840.1.897817.3.579.2. 462 Unknown [id number] 2.16.840.1.318474.3.579.2. 462 Unknown [id number] 2.16.840.1.786977.3.579.2. 462 Unknown [id number] [id number]. 462 Unknown [id number] [id number]. 462 Unknown [id number]. 462 Social History Date Type Detail Facility Start: 06-07-2017 End: 02-17-2023 Tobacco smoking status NHIS Smoker, current status unknown [place], [place] Start: 02-23-1972 End: 02-17-2023 History of tobacco use Cigarette Smoker [place], [place] Start: 06-07-2017 End: 02-18-2025 Cigarettes smoked current (pack per day) - [facility] Start: 06-07-2017 End: 01-17-2024 Alcohol intake Current non-drinker of alcohol (finding) [facility] Start: 1955 [facility]igned [facility] CLEMENTE Start: [birth year]-23-1973 End: 02-23-2024 Tobacco smoking status NHIS Current every day smoker [facility] Start: 12-23-2019 End: 12-11-2023 Tobacco use and exposure Never used [facility] Work Phone: Start: 12-29-2020 Heavy tobacco smoker (finding) [facility] Start: 1955 Sex Assigned At Male A [facility] Start: 07-08-2011 History SDOH Alcohol Comment past history of alcohol abuse [facility] Start: 09-26-2021 End: 01-24-2023 Exposure to SARS-CoV-2 (event) Not sure [facility] Start: 04-18-2022 Tobacco Comment Smoking less t seymour a pack a day. [facility] Start: 08-26-2022 Tobacco smoking status Light t obacco smoker (finding) [facility] Start: 01-24-2023 End: 02-18-2025 Tobacco use panel [facility] Start: 08-06-2020 Tobacco smoking stat us NHIS Unknown if ever smoked [facility] Start: 08-05-2020 None [facility] Start: 04-12-2020 Spouse/ Signif icant Other [facility] Start: 08-06-2020 Cigarettes [facility] Start: 06-23-2023 End: 12-11-2023 Tobacco smoking status Ex-smoker (finding) [facility] Comment on above: Quit 03/03/2023 Within the last year , have you been afraid of your partner or ex-partner? No [facility] National Score (1-10 0), lower number is lower risk 51 [facility] Start: 02-23-2024 Tobacco Comment Quit 02/2023. [facility] Start: 08-14-2019 End: 01-17-2022 Sex Male (finding) [facility] Medical Equipment Procedure Code Equipment Code Equipment Origin al Text Equipment Identifier Dates Stent Vasc [id number] Zier - [id number] Start: 01-02-2024 Functional Status Date Assessment Result Facility 07-26-2023 Functional Status Assistive Device None A [facility] 07-26-2023 Functional Status Maintained [facility] 02-12-2023 Functional Status Ambulation in [facility] 08-14-2022 Functional Status Independent [facility] 08-14-2022 Functional Status Standard Safet y ID band on, Allergy Band on, Call device within reach, Bed in low position, Wheels locked, Upper/Half-Length side-rails up, Phone within reach, Visitor at bedside, Safety level maintained [facility] Mental Status Date Assessment Result Facility 07-26-2023 Mental Status Oriented x 4 [facility] 02-12-2023 Mental Status Oriented x 4 [facility] 08-14-2022 Mental Status Orientation Oriented x 4 [facility] 08-14-2022 Mental Status [facility] Clinical Notes 02-04-2016 to 02-18-2025 Jana Negrete APRN - KO - 02/18/2025 11:00 AM Gilbert Galicia MD - 01/08/2025 3:43 PM EDTTelephone Encounter - Elodia Michelle - 01/08/2025 2:41 PM EDT Note Date & Type Note Facility 02-18-2025 History of Presen t illness Narrative [facility] Vascular Surgery Follow-up Office Visit CHIEF COMPLAINT: Chief Complaint Patient presents with Follow-up recall arterial duplex 01/17/25 HISTORY OF PRESENT ILLNESS: Lidia Singh is a 69 y.o. male who returns today for follow-up for lower extremity PAD. Hx of right femoral artery aneurysm repair 2013; Left fem-tib bypass 2013 and right fem tib bypass 2012, left iliac stent 2023. Last OV 2023. Here for recall appointment. Accompanied by his . Doing well. Working 11 hour days. States "legs feel great" He denies any episodes of lateralizing weakness, facial droop, aphasia, or unilateral sudden temporary blindness. Denies any claudication symptoms or rest pain. Denies any slow or nonhealing sores to feet. Denies any abdominal pain. Hx of chronic low back pain Recent arterial duplex stable from prior testing Currently taking the following medications for vascular risk factor modification: Antiplatelet/Anticoagulant: Aspirin Statin: atorvastatin Smoking Status: former Past Medical History: Medical History[1] Past Surgical History: Surgical History[2] Current Medications: Current Medications[3] Allergies: Patient has no known allergies. Social History: Social History Socioeconomic History Marital status: Spouse name: Not on file Number of children: Not on file Years of education: Not on file Highest education level: Not on file Occupational History Not on file Tobacco Use Smoking status: Former Current packs/day: 0.00 Types: Cigarettes Quit date: 02/2023 Years since quittin.0 Smokeless tobacco: Never Substance and Sexual Activity Alcohol use: No Drug use: Yes Types: Marijuana Sexual activity: Not on file Other Topics Concern Not on file Social History Narrative Not on file Social Drivers of Health Financial Resource Strain: Not on file Food Insecurity: Not on file Transportation Needs: Not on file Physical Activity: Not on file Stress: Not on file Social Connections: Not on file Intimate Partner Violence: Not At Risk (01/02/2024) Humiliation, Afraid, Rape, and Kick questionnaire Fear of Current or Ex-Partner: No Emotionally Abused: No Physically Abused: No Sexually Abused: No Housing Stability: Not on file Family History: Family History[4] REVIEW OF SYSTEMS: Review of Systems Constitutional: Negative. HENT: Negative. Eyes: Negative. Respiratory: Negative. Cardiovascular: Negative. Gastrointestinal: Negative. Endocrine: Negative. Genitourinary: Negative. Musculoskeletal: Positive for back pain (chronic). Skin: Negative. Allergic/Immunologic: Negative. Neurological: Negative. Hematological: Negative. Psychiatric/Behavioral: Negative. LABS: Lab Results Component Value Date CREATININE 1.03 12/11/2023 Lab Results Component Value Date WBC 8.5 12/11/2023 HGB 12.1 (L) 12/11/2023 HCT 36.1 (L) 12/11/2023 MCV 95.5 12/11/2023 PLT 222 12/11/2023 No results found for: "INR", PROTIME No results found for: "VLDL" PHYSICAL EXAM: Vitals: 02/18/25 1100 BP: 130/68 Resp: 18 Physical Exam Constitutional: Appearance: Normal appearance. He is well-groomed. Neck: Vascular: No carotid bruit. Cardiovascular: Rate and Rhythm: Normal rate and regular rhythm. Pulses: Carotid pulses are 2+ on the right side and 2+ on the left side. Radial pulses are 2+ on the right side and 2+ on the left side. Dorsalis pedis pulses are 2+ on the right side and 2+ on the left side. Posterior tibial pulses are 2+ on the right side and 2+ on the left side. Pulmonary: Effort: Pulmonary effort is normal. No respiratory distress. Breath sounds: Normal breath sounds. Abdominal: General: There is no distension. Palpations: There is no pulsatile mass. Tenderness: There is no abdominal tenderness. There is no guarding. Musculoskeletal: General: Normal range of motion. Cervical back: Normal range of motion and neck supple. Right lower leg: No edema. Left lower leg: No edema. Skin: General: Skin is warm and dry. Neurological: Mental Status: He is alert and oriented to person, place, and time. Psychiatric: Mood and Affect: Mood normal. Behavior: Behavior normal. Behavior is cooperative. Imaging Arterial Duplex 01/2025 The right femoral to tibial artery bypass graft is patent without stenosis. The left iliac artery stent is patent without stenosis. The left femoral to tibial artery bypass graft is patent without stenosis. Right side findings: Resting RIMMA is 0.95. This is within the normal range. Left side findings: Resting RIMMA is 0.97. This is within the normal range. ASSESSMENT/PLAN: Problem List Items Addressed This Visit Circulatory 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, bilateral legs (HCC) - Primary Other Visit Diagnoses Aftercare following surgery of the circulatory system 1. Stable follow up of lower extremity PAD I reviewed with the patient that the circulation to his feet remains adequate and that I do not feel that he requires any additional testing or intervention at this time. Pt should continue on ASA/Statin and f/u with PCP for further atherosclerotic risk factor reduction Meticulous foot care was emphasized and the patient was instructed to call if he develops a non-healing foot wound of any kind I instructed the patient to walk daily Repeat arterial duplex 1 year F/U in 1 year for PAD check--sooner should any issues arise . 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 EYELID SURGERY (HISTORICAL) Right 12/18/2024 FEMORAL-TIBIAL BYPASS GRAFT (HISTORICAL) Left 02/26/2014 Fem-TP Trunk ISSVG ([place]) FEMORAL-TIBIAL BYPASS GRAFT (HISTORICAL) Right 12/13/2012 Fem-TP Trunk ISSVG ([place]) IMGHX IR AORTAGRAM 01/02/2024 AORTOGRAM WITH BILATERAL LOWER EXTREMITY RUNOFF, POSSIBLE LEFT ILIAC STENT PROSTATECTOMY 2020 SKIN CANCER EXCISION 11/2015 Melanoma-back SKIN CANCER EXCISION 09/2022 chest VASCULAR SURGERY Left 01/02/2024 Iliac Zilver stent ([facility]) [3] Current Outpatient Medications: albuterol 108 (90 Base) MCG/ACT inhaler, INHALE 2 (TWO) puffs BY MOUTH up to FOUR times for SHORTNESS OF BREATH and cough, Disp: , Rfl: aspirin 81 MG EC tablet, Take 81 mg by mouth daily., Disp: , Rfl: atorvastatin (Lipitor) 80 MG tablet, Take 80 mg by mouth daily., Disp: , Rfl: b complex vitamins capsule, Take 1 capsule by mouth daily., Disp: , Rfl: Cobalamin Combinations (Vitamin K68-Vuhdt Acid) 500-400 MCG tablet, Take by mouth., Disp: , Rfl: doxylamine (Sleep Aid) 25 MG tablet, Take 25 mg by mouth Nightly as needed for sleep., Disp: , Rfl: fluticasone (Flonase) 50 MCG/ACT nasal spray, INSTILL 1 SPRAY INTO NOSTRIL EVERY MORNING, Disp: , Rfl: Dsxcndtaiok-Dwumnafdo-Kakqir (Trelegy Ellipta) 100-62.5-25 MCG/ACT aerosol powder , Inhale 1 puff daily., Disp: , Rfl: latanoprost (Xalatan) 0.005 % ophthalmic solution, instill 1 (ONE) drop into both eyes every night, Disp: , Rfl: losartan (Cozaar) 25 MG tablet, Take 25 mg by mouth daily., Disp: , Rfl: omeprazole (PriLOSEC) [address] capsule, Take 20 mg by mouth daily., Disp: , Rfl: polyethylene glycol, PEG, 3350 (Glycolax) 17 GM/SCOOP powder, TAKE 17G BY MOUTH DAILY. DISSOLVE IN WATER OR JUICE, Disp: , Rfl: Sodium Sulfate-Mag Sulfate-KCl (Sutab) 7827-530-384 MG tablet, Take by mouth., Disp: , Rfl: [4] Family History Problem Relation Name Age of Onset High Blood Pressure Brother Cancer Mother Cancer Brother Cancer Father Diabetes Father documented in this encounter [facility] 01-08-2025 Note HNO ID: [id number] Author: GILBERT RHODES MD Service: ? Author Type: Physician Type: Progress Notes Filed: 01/08/2025 15:53 Note Text: INTERVENTIONAL PULMONARY MEDICINE PROGRESS NOTE VIRTUAL PLEASE DO NOT REMOVE FROM THE CHART OR MODIFY PRINTED COPY This is a virtual visit using [employer] Video Visit. It required patient-provider interaction for the medical decision making as documented below. I have communicated my name and active licensure. The patient's identity and physical location were verified at the time of this visit. Either the patient or their legal medical billing representative has been informed of the risks and benefits of -- and alternatives to -- treatment through a remote evaluation and consents to proceed with the evaluation remotely. CC: I am seeing Lidia Singh in follow up for dominant right upper lobe nodule. Summary of this visit and my recommendations will be relayed to the referring physician by way of electronic communication or by mail. PCP: Julissa García APRN.KO Referring Provider: Isaias Franz V MD ( ; ) HPI: Mr. Singh is a 69 year old male with history of prostate cancer s/p prostatectomy 4 years ago, melanoma of the back removed in 2014 or so, peripheral arterial disease s/p surgery and left stenting (not on antiplatelet now) and former smoker 50 pack years quit in 02/2023 who is seen for follow up on a dominant right upper lobe nodule. Lidia reports no changes in health or medications since the last visit 5 months ago. He underwent eye surgery recently but reports no new issues with dyspnea or physical activity limitations. 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 He denies any difficulty maintaining his weight, which fluctuates between 130-135 lbs depending on his workload. He is currently taking a baby aspirin and denies use of other anticoagulants. REVIEW OF SYSTEMS: Per HPI. Review of systems is otherwise negative. PAST MEDICAL HISTORY: PAST MEDICAL HISTORY Diagnosis Date Abdominal pain, right lower quadrant Abscess of intestine 05/09/2006 Alcohol abuse, in remission Benign neoplasm of colon Benign neoplasm of colon Carpal tunnel syndrome bilateral Diverticulitis of colon (without mention of hemorrhage)(562.11) 05/23/2006 DVT (deep venous thrombosis) (HCC) Embolism and thrombosis of unspecified site 09/19/2007 Right calf Headache, cluster, episodic Hypertrophy of prostate without urinary obstruction and other lower urinary tract symptoms (LUTS) Hypertrophy of the prostate w/o obstruction Mixed hyperlipidemia Hyperlipidemia Peptic ulcer, unspecified site, unspecified as acute or chronic, without mention of hemorrhage or perforation Tobacco use disorder 04/14/2005 Unspecified glaucoma(365.9) MEDICATIONS: ferrous sulfate 325 mg (65 mg iron) EC tablet TAKE 1 TABLET BY MOUTH EVERY MONDAY, MONDAY AND MONDAY TRELE ELLIPTA 100-62.5-25 mcg inhalation powder Inhale 1 Puff as instructed once daily. omeprazole (PRILOSEC) 20 mg capsule Take 20 mg by mouth once daily. vitamin b complex capsule Take 1 capsule by mouth every afternoon. Vitamin S70-Pjybf Acid 0.5-1 mg tab Take by mouth. losartan (COZAAR) 25 mg tablet Take 1 (ONE) tab(s) Oral EVERY Day latanoprost (XALATAN) 0.005 % ophthalmic solution instill 1 (ONE) DROP IN BOTH EYES NIGHTLY atorvastatin (LIPITOR) 40 mg tablet Take 40 mg by mouth once daily. aspirin, enteric coated (ECOTRIN LOW STRENGTH) 81 mg EC tablet Take 1 tablet by mouth once daily. SOCIAL HISTORY: Social History Tobacco Use Smoking status: Every Day Current packs/day: 1.00 Average packs/day: 1 pack/day for 52.9 years (52.9 ttl pk-yrs) Types: Cigarettes Start date: 02/23/1972 Smokeless tobacco: Never Tobacco comments: Quit 02/2023. Vaping Use Vaping status: Never Used Substance Use Topics Alcohol use: No Comment: past history of alcohol abuse Drug use: Yes Comment: Smokes 1 joint once a week FAMILY HISTORY: FAMILY HISTORY Problem Relation Age of Onset Cancer Mother lung cancer, Cancer Father stomach cancer, Diabetes Father Cancer Maternal Grandmother breast cancer, dec. Diabetes Maternal Grandmother Prostate Cancer Brother 3 years older Coronary Artery Disease Brother 48 y.o. [place], premature Hypertension Brother Coronary Artery Disease Sister age 54, [place] PHYSICAL EXAM: VIDEO EXAM: (if completed, performed via video enabled technology) GENERAL: alert and appropriate, in no distress, well-hydrated, well nourished, and interactive DATA: Labs: N/A Imaging: Reviewed and compared to prior IMPRESSIONS: # Right upper lung nodule, PET avid - stable from 04/2024, surrounded by blood vessels # Right upper lobe nodules (sub centimeter) # Multiple GGO nodules, the more prominent one is right lower lobe (more content not included)... [facility] 01-08-2025 History of Presen t illness Narrative INTERVENTIONAL PULMONARY MEDICINE PROGRESS NOTE VIRTUAL PLEASE DO NOT REMOVE FROM THE CHART OR MODIFY PRINTED COPY This is a virtual visit using [employer] Video Visit. It required patient-provider interaction for the medical decision making as documented below. I have communicated my name and active licensure. The patient's identity and physical location were verified at the time of this visit. Either the patient or their legal medical billing representative has been informed of the risks and benefits of -- and alternatives to -- treatment through a remote evaluation and consents to proceed with the evaluation remotely. CC: I am seeing Lidia Singh in follow up for dominant right upper lobe nodule. Summary of this visit and my recommendations will be relayed to the referring physician by way of electronic communication or by mail. PCP: Julissa García APRN.[employer] Referring Provider: Isaias Franz V MD ( ; ) HPI: Mr. Singh is a 69 year old male with history of prostate cancer s/p prostatectomy 4 years ago, melanoma of the back removed in 2013 or so, peripheral arterial disease s/p surgery and left stenting (not on antiplatelet now) and former smoker 50 pack years quit in 02/2023 who is seen for follow up on a dominant right upper lobe nodule. Lidia reports no changes in health or medications since the last visit 5 months ago. He underwent eye surgery recently but reports no new issues with dyspnea or physical activity limitations. 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 He denies any difficulty maintaining his weight, which fluctuates between 130-135 lbs depending on his workload. He is currently taking a baby aspirin and denies use of other anticoagulants. REVIEW OF SYSTEMS: Per HPI. Review of systems is otherwise negative. PAST MEDICAL HISTORY: PAST MEDICAL HISTORY Diagnosis Date Abdominal pain, right lower quadrant Abscess of intestine 05/09/2006 Alcohol abuse, in remission Benign neoplasm of colon Benign neoplasm of colon Carpal tunnel syndrome bilateral Diverticulitis of colon (without mention of hemorrhage)(562.11) 05/23/2006 DVT (deep venous thrombosis) (HCC) Embolism and thrombosis of unspecified site 09/19/2007 Right calf Headache, cluster, episodic Hypertrophy of prostate without urinary obstruction and other lower urinary tract symptoms (LUTS) Hypertrophy of the prostate w/o obstruction Mixed hyperlipidemia Hyperlipidemia Peptic ulcer, unspecified site, unspecified as acute or chronic, without mention of hemorrhage or perforation Tobacco use disorder 04/14/2005 Unspecified glaucoma(365.9) MEDICATIONS: ferrous sulfate 325 mg (65 mg iron) EC tablet TAKE 1 TABLET BY MOUTH EVERY MONDAY, MONDAY AND MONDAY TRELEGY ELLIPTA 100-62.5-25 mcg inhalation powder Inhale 1 Puff as instructed once daily. omeprazole (PRILOSEC) 20 mg capsule Take 20 mg by mouth once daily. vitamin b complex capsule Take 1 capsule by mouth every afternoon. Vitamin L59-Lvavl Acid 0.5-1 mg tab Take by mouth. losartan (COZAAR) 25 mg tablet Take 1 (ONE) tab(s) Oral EVERY Day latanoprost (XALATAN) 0.005 % ophthalmic solution instill 1 (ONE) DROP IN BOTH EYES NIGHTLY atorvastatin (LIPITOR) 40 mg tablet Take 40 mg by mouth once daily. aspirin, enteric coated (ECOTRIN LOW STRENGTH) 81 mg EC tablet Take 1 tablet by mouth once daily. SOCIAL HISTORY: Social History Tobacco Use Smoking status: Every Day Current packs/day: 1.00 Average packs/day: 1 pack/day for 52.9 years (52.9 ttl pk-yrs) Types: Cigarettes Start date: 02/23/1972 Smokeless tobacco: Never Tobacco comments: Quit 02/2023. Vaping Use Vaping status: Never Used Substance Use Topics Alcohol use: No Comment: past history of alcohol abuse Drug use: Yes Comment: Smokes 1 joint once a week FAMILY HISTORY: FAMILY HISTORY Problem Relation Age of Onset Cancer Mother lung cancer, Cancer Father stomach cancer, Diabetes Father Cancer Maternal Grandmother breast cancer, dec. Diabetes Maternal Grandmother Prostate Cancer Brother 3 years older Coronary Artery Disease Brother 48 y.o. [place], premature Hypertension Brother Coronary Artery Disease Sister age 54, [place] PHYSICAL EXAM: VIDEO EXAM: (if completed, performed via video enabled technology) GENERAL: alert and appropriate, in no distress, well-hydrated, well nourished, and interactive DATA: Labs: N/A Imaging: Reviewed and compared to prior IMPRESSIONS: # Right upper lung nodule, PET avid - stable from 04/2024, surrounded by blood vessels # Right upper lobe nodules (sub centimeter) # Multiple GGO nodules, the more prominent one is right lower lobe # Multiple lung nodules, <5mm, stable # Former smoker 53 pack years quit 02/2023 # Strong family history for malignancy # Peripheral arterial disease of bilateral lower extremities # History of back melanoma in 2013 # History of prostate cancer s/p surgery 2020 RECOMMENDATION/PLAN: Images reviewed and compared to prior. Patient remains in good health. ECOG 0. If needed, he is a good surgical candidate. He has multiple lung nodules with no significant changes in size or appearance. The primary nodule of concern, located in the right upper lung, remains stable with no evidence of growth. Other smaller nodules also show no changes. Since 04/2024 until now, stable findings, so we will arrange for a follow up CT scan in 6 months to monitor for any changes in the nodules. I discussed the potential for malignancy but determined that current stability probably does not warrant immediate biopsy or surgical intervention like we have discussed prior and determined to hold off, because if biopsy is non diagnostic, we will still probably continue to follow and alongside, he has other sub-centimeter mostly GGO in the lungs. Patient understands and agrees with the plan to monitor the nodules with periodic imaging. If the next imaging showed continued stability, will probably extend to 1 year follow up. All questions were answered to the best of my ability. Verbal health teaching given to patient, patient verbalizes understanding and agrees with treatment plan. I spent a total of 30 minutes on the date of the service which included preparing to see the patient, [id number] patient care, completing clinical documentation, counseling and educating the patient/family/caregiver, and communicating results to the patient/family/caregiver Electronically Signed: Gilbert Rhodes MD January 08, 2025 3:51 PM documented in this encounter [facility] 01-08-2025 Telephone encounter Note Lidia Singh was scheduled for a Lower Extremity Arterial Duplex graft bilateral with RIMMA on 01/20/25. I tried to get an [place] Authorization but they won't authorize it. His surgery was 01/02/2024. They said it is limited to 4 month intervals within the first year after revascularization then annually after the first year. His last test was on 07/22/2024. Do you want a peer to peer setup with Krystin or wait till next yr for his test? [facility] 01-08-2025 Miscellaneous Notes Lidia Singh was scheduled for a Lower Extremity Arterial Duplex graft bilateral with RIMMA on 01/20/25. I tried to get an [place] Authorization but they won't authorize it. His surgery was 01/02/2024. They said it is limited to 4 month intervals within the first year after revascularization then annually after the first year. His last test was on 07/22/2024. Do you want a peer to peer setup with Krystin or wait till next yr for his test? documented in this encounter [facility] 11-12-2024 Evaluation note Diagnosis Onset Date Resolution Anemia acute November 12, 2024 12:26pm History of malignant melanoma of back chronic November 12, 2024 12:26pm History of prostate cancer chronic November 12, 2024 1 2:26pm [facility] Work Phone: [phone]) 582-728805-27-2025 Progress [facility] [address] [place] [address] OFFICE VISIT Date of Service: 11/12/24 1331 MR#: [id number] Acct: [id number] Name: LIDIA SINGH Rep #: [id number] : 1955 From: Eugenio Mata MD Age/Sex: 69/M [place] [facility] [place] [facility] [place]: Signed HPI Subjective Date of Service 11/12/24 Chief Complaint F/u for Prostate cancer. History of Present Illness 69-year-old man was diagnosed with Melanoma L scapular area on . He had wide excision on 12/03/2015 at [facility] in [place]. He was diagnosed with prostate cancer clinically T1c left side in October 2020, PSA was 15 he had robotic assisted radical prostatectomy, bilateral lymph node dissection on 12/31/2020 1. 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 Pathologic staging pT3a pN0. Stage IIIB. Postop in January 2021, PSA was 0.09. Urologist moved from the area so he wanted to do follow-uphere. He is on observation, comes for follow up. Feels well. 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 Arthritis Tobacco user Degeneration of lumbar intervertebral disc Chronic pain of right upper extremity Diverticulitis Degenerative joint disease of hand Benign essential hypertension Surgical History Hx of laminectomy Hx of tonsillectomy Family History Mother Cancer Father Cancer Diabetes Sister Heart disease Myocardial infarction Brother Heart disease Myocardial infarction Cancer Social History household members: family housing: house Smoking Status: Former smoker quit date: 02/17/23 ROS Constitutional Constitutional: Reports systems reviewed and no addt'l complaints, except as documented Eyes Eyes: Reports systems reviewed and no addt'l complaints, except as documented ENT HEENT: Reports systems reviewed and no addt'l complaints, except as documented Cardiovascular Cardiovascular: Reports systems reviewed and no addt'l complaints, except as documented Respiratory/Chest Respiratory/Chest: Reports systems reviewed and no addt'l complaints, except as documented Gastrointestinal Gastrointestinal: Reports systems reviewed and no addt'l complaints, except as documented Genitourinary Genitourinary: Reports systems reviewed and no addt'l complaints, except as documented Musculoskeletal Musculoskeletal: Reports systems reviewed and no addt'l complaints, except as documented Integumentary Integumentary: Reports systems reviewed and no addt'l complaints, except as documented Neurologic Neurologic: Reports systems reviewed and no addt'l complaints, except as documented Psychiatric Psychiatric: Reports systems reviewed and no addt'l complaints, except as documented Endocrine Endocrinology: Reports systems reviewed and no addt'l complaints, except as documented Hematologic/Lymphatic Hematologic/Lymphatic: Reports systems reviewed and no addt'l complaints, exceptas documented Allergic/Immunologic Allergic/Immunologic: Reports systems reviewed and no addt'l complaints, except as documented Intake Vital Signs 02/02/24 14:27 09/26/24 09:11 11/12/24 13:36 11/12/24 13:38 Height 5 ft 2 in 5 ft 2 in 5 ft 2 in 5 ft 2 in Weight: 62.624 kg BMI 25.2 BP 128/60 H Blood Pressure Location Lt brachial Position Sitting Respiration 18 Pulse 50 L Pulse Source Monitor Temp 97.9 F Temperature Source Temporal Artery Pulse Oximetry (%) 97 Oxygen Delivery Method room air Intake Is patient in pain?: No Allergies pregabalin (From Lyrica) Allergy (Verified 11/12/24 13:31) NEEDS FOLLOW-UP Medications ?Medication ?Instructions ?Recorded ?Confirmed ?Type aspirin 81 mg chewable tablet 81 mg PO QHS heart healt h 03/19/13 11/12/24 History atorvastatin 40 mg tablet 40 mg PO QHS 04/12/20 History latanoprost 0.005 % eye drops 1 drp EACH EYE QHS 04/1211/12/24 History losartan 25 mg tablet 25 mg PO DAILY BP 08/05/20 0 11/12/24 History acetaminophen 500 mg tablet 500 mg PO Q6H PRN 10/12/22 11/12/24 History (Tylenol Extra Strength) nitroglycerin 0.4 mg sublingual 0.4 mg sublingual ONCE 10/12/22 11/12/24 History tablet vitamin B complex (B 1 tab PO DAILY 10/12/2210/18 History Complex-Vitamin B12 tablet) fluticasone fur. 100 mcg-umeclid 1 ea inhalation QDAY 02/02/24 11/12/24 History 62.5 mcg-vilant 25 mcg inhalat.powder (Trelegy Ellipta) ferrous sulfate 325 mg (65 mg 325 mg PO .mon,wed,fri 0 11/12/24 11/12/24 History iron) tablet fluticasone propionate 50 1 spray intranasal QAM 11/1211/12/24 History mcg/actuation nasal spray,suspension omeprazole 40 mg capsule,delayed 20 mg PO BID 11/12/24 11/12/24 History release trazodone 50 mg tablet 50 mg PO QHS 11/12/24 History vitamin B12 0.5 mg-folic acid 1 mg 1 tab PO QDAY 11/1211/12/24 History tablet Have you fallen in the past year?: No Central Venous Access Central Venous Access: No Laboratory Tests 10/17/23 11/12/24 14:14 12:35 Total PSA < 0.01 < 0.02 Exam Physical Exam Const alert, oriented x3 and no apparent distress HEENT normocephalic, external ears normal and external nose normal Eyes PERRL, conjunctivae normal and no scleral icterus Neck supple Lymph Lymphatic: no lymphadenopathy noted Resp normal respiratory effort and clear to auscultation bilaterally Cardio regular rate, regular rhythm, S1 normal heart sound and S2 normal heart sound GI normal to inspection, nondistended, normoactive bowel sounds no CVA tenderness Back/Spine no CVA tenderness Extremity normal to inspection and no clubbing, cyanosis or edema Skin Skin Narrative: Scar L scapular Neuro oriented x3, CN's II-XII intact bilaterally and moves all extremities Psych mental status grossly normal Coding Level of Care Code Off vis,est,level 4 Exam Problem Focused Diagnoses History of prostate cancer Z85.46 History of malignant melanoma of back Z85.820 Anemia, unspecified type D64.9 Anemia type: unspecified type Assessment and Plan Assessment and Plan (1) History of prostate cancer: Status: Chronic Comment: No evidence of disease clinically. PSA is normal. Plan: To continue observation. Monitor PSA. (2) History of malignant melanoma of back: Status: Chronic Comment: No evidence of disease. On observation. Plan: To continue observation. (3) Anemia: Status: Acute Qualifiers: Anemia type: unspecified type Qualified Code(s): D64.9 - Anemia, unspecified Plan: To check Iron profile, B12/Folate, stool for occult blood. Will call his there is anything abnormal. Plan Details Follow Up: 12 Months Clinical Quality Measures Falls Risk Screening/Assistive Devices Have you fallen in the past year?: No 11/12/24 1405 D> Date _ Eugenio Mata MD Cosigner Signature: Date (if applicable) CC: DOT [facility]05-27-2025 Progress note Author Eugenio Mata [facility] Note Date/Time November 12, 2024 2:05p peggy [facility] [address] [address] OFFICE VISIT Date of Service: 11/12/24 1331 MR#: [id number] Acct: [id number] Name: LIDIA SINGH Rep #: [id number] : 1955 From: Eugenio Mata MD Age/Sex: 69/M Location: [facility] [place] Status: Signed HPI Subjective Date of Service 11/12/24 Chief Complaint F/u for Prostate cancer. History of Present Illness 69-year-old man was diagnosed with Melanoma L scapular area on . He had wide excision on 12/03/2015 at [facility] in [place]. He was diagnosed with prostate cancer clinically T1c left side in October 2020, PSA was 15 he had robotic assisted radical prostatectomy, bilateral lymph node dissection on 12/31/2020 1. Pathology showed prostatic adenocarcinoma [place] grade 3+4/7 involving right and left prostatic lobes, tumor invaded prostatic capsule, left bladder base was involved by tumor, tumor did not invade seminal vesicles, 2 pelvic lymph nodes were negative. Pathologic staging pT3a pN0. Stage IIIB. Postop in January 2021, PSA was 0.09. Urologist moved from the area so he wanted to do follow-up here. He is on observation, comes for follow up. Feels well. 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 Arthritis Tobacco user Degeneration of lumbar intervertebral disc Chronic pain of right upper extremity Diverticulitis Degenerative joint disease of hand Benign essential hypertension Surgical History Hx of laminectomy Hx of tonsillectomy Family History Mother Cancer Father Cancer Diabetes Sister Heart disease Myocardial infarction Brother Heart disease Myocardial infarction Cancer Social History household members: family housing: house Smoking Status: Former smoker quit date: 02/17/23 ROS Constitutional Constitutional: Reports systems reviewed and no addt'l complaints, except as documented Eyes Eyes: Reports systems reviewed and no addt'l complaints, except as documented ENT HEENT: Reports systems reviewed and no addt'l complaints, except as documented Cardiovascular Cardiovascular: Reports systems reviewed and no addt'l complaints, except as documented Respiratory/Chest Respiratory/Chest: Reports systems reviewed and no addt'l complaints, except as documented Gastrointestinal Gastrointestinal: Reports systems reviewed and no addt'l complaints, except as documented Genitourinary Genitourinary: Reports systems reviewed and no addt'l complaints, except as documented Musculoskeletal Musculoskeletal: Reports systems reviewed and no addt'l complaints, except as documented Integumentary Integumentary: Reports systems reviewed and no addt'l complaints, except as documented Neurologic Neurologic: Reports systems reviewed and no addt'l complaints, except as documented Psychiatric Psychiatric: Reports systems reviewed and no addt'l complaints, except as documented Endocrine Endocrinology: Reports systems reviewed and no addt'l complaints, except as documented Hematologic/Lymphatic Hematologic/Lymphatic: Reports systems reviewed and no addt'l complaints, exceptas documented Allergic/Immunologic Allergic/Immunologic: Reports systems reviewed and no addt'l complaints, except as documented Intake Vital Signs 02/02/24 14:27 09/26/24 09:11 11/12/24 13:36 11/12/24 13:38 Height 5 ft 2 in 5 ft 2 in 5 ft 2 in 5 ft 2 in Weight: 62.624 kg BMI 25.2 BP 128/60 H Blood Pressure Location Lt brachial Position Sitting Respiration 18 Pulse 50 L Pulse Source Monitor Temp 97.9 F Temperature Source Temporal Artery Pulse Oximetry (%) 97 Oxygen Delivery Method room air Intake Is patient in pain?: No Allergies pregabalin (From Lyrica) Allergy (Verified 11/12/24 13:31) NEEDS FOLLOW-UP Medications ?Medication ?Instructions ?Recorded ?Confirmed ?Type aspirin 81 mg chewable tablet 81 mg PO QHS heart healt h 03/19/13 11/12/24 History atorvastatin 40 mg tablet 40 mg PO QHS 04/12/20 History latanoprost 0.005 % eye drops 1 drp EACH EYE QHS 04/1211/12/24 History losartan 25 mg tablet 25 mg PO DAILY BP 08/05/20 0 11/12/24 History acetaminophen 500 mg tablet 500 mg PO Q6H PRN 10/12/22 11/12/24 History (Tylenol Extra Strength) nitroglycerin 0.4 mg sublingual 0.4 mg sublingual ONCE 10/12/22 11/12/24 History tablet vitamin B complex (B 1 tab PO DAILY 10/12/2210/18 History Complex-Vitamin B12 tablet) fluticasone fur. 100 mcg-umeclid 1 ea inhalation QDAY 02/02/24 11/12/24 History 62.5 mcg-vilant 25 mcg inhalat.powder (Trelegy Ellipta) ferrous sulfate 325 mg (65 mg 325 mg PO .mon,wed,fri 0 11/12/24 11/12/24 History iron) tablet fluticasone propionate 50 1 spray intranasal QAM 11/1211/12/24 History mcg/actuation nasal spray,suspension omeprazole 40 mg capsule,delayed 20 mg PO BID 11/12/24 11/12/24 History release trazodone 50 mg tablet 50 mg PO QHS 11/12/24 History vitamin B12 0.5 mg-folic acid 1 mg 1 tab PO QDAY 11/1211/12/24 History tablet Have you fallen in the past year?: No Central Venous Access Central Venous Access: No Laboratory Tests 10/17/23 11/12/24 14:14 12:35 Total PSA < 0.01 < 0.02 Exam Physical Exam Const alert, oriented x3 and no apparent distress HEENT normocephalic, external ears normal and external nose normal Eyes PERRL, conjunctivae normal and no scleral icterus Neck supple Lymph Lymphatic: no lymphadenopathy noted Resp normal respiratory effort and clear to auscultation bilaterally Cardio regular rate, regular rhythm, S1 normal heart sound and S2 normal heart sound GI normal to inspection, nondistended, normoactive bowel sounds no CVA tenderness Back/Spine no CVA tenderness Extremity normal to inspection and no clubbing, cyanosis or edema Skin Skin Narrative: Scar L scapular Neuro oriented x3, CN's II-XII intact bilaterally and moves all extremities Psych mental status grossly normal Coding Level of Care Code Off vis,est,level 4 Exam Problem Focused Diagnoses History of prostate cancer Z85.46 History of malignant melanoma of back Z85.820 Anemia, unspecified type D64.9 Anemia type: unspecified type Assessment and Plan Assessment and Plan (1) History of prostate cancer: Status: Chronic Comment: No evidence of disease clinically. PSA is normal. Plan: To continue observation. Monitor PSA. (2) History of malignant melanoma of back: Status: Chronic Comment: No evidence of disease. On observation. Plan: To continue observation. (3) Anemia: Status: Acute Qualifiers: Anemia type: unspecified type Qualified Code(s): D64.9 - Anemia, unspecified Plan: To check Iron profile, B12/Folate, stool for occult blood. Will call his there is anything abnormal. Plan Details Follow Up: 12 Months Clinical Quality Measures Falls Risk Screening/Assistive Devices Have you fallen in the past year?: No 11/12/24 1400 <Electronically signed by Eugenio Mtz> Date _ Eugenio Mata MD Cosigner Signature: Date (if applicable) CC: [place] [facility] [employer] [facility] Work Phone: [phone] 613-581702-14-2025 NoteHNO ID: [id number] Author: GILBERT RHODES MD Service: ? Author Type: Physician Type: Progress Notes Filed: 08/02/2024 17:06 Note Text: INTERVENTIONAL PULMONARY MEDICINE VIRTUAL PROGRESS NOTE PLEASE DO NOT REMOVE FROM THE CHART OR MODIFY PRINTED COPY Referring Provider: Isaias Franz V MD ( ; ) Patient was accompanied by during this virtual call. This is a virtual visit using [employer] Video Visit. It required patient-provider interaction for the medical decision making as documented below. I have communicated my name and active licensure. The patient's identity and physical location were verified at the time of this visit. Either the patient or their legal medical billing representative has been informed of the risks and benefits of -- and alternatives to -- treatment through a remote evaluation and consents to proceed with the evaluation remotely. Lidia Singh is a 69 year old male with history of prostate cancer s/p prostatectomy 5 years ago, melanoma of the back removed in 2014 or so, peripheral arterial disease s/p surgery and left stenting (not on antiplatelet now) and former smoker 50 pack years quit in 02/2023 who is here to follow up on a right upper lobe nodule. No new symptoms or changes or concerns. No limitations in daily activities. No new chest pain or pressure. No changes in medications. HISTORY REVIEWED (electronic chart updated): PAST MEDICAL HISTORY Diagnosis Date Abdominal pain, right lower quadrant Abscess of intestine 05/09/2006 Alcohol abuse, in remission Benign neoplasm of colon Benign neoplasm of colon Carpal tunnel syndrome bilateral Diverticulitis of colon (without mention of hemorrhage)(562.11) 05/23/2006 DVT (deep venous thrombosis) (HCC) Embolism and thrombosis of unspecified site 09/19/2007 Right calf Headache, cluster, episodic Hypertrophy of prostate without urinary obstruction and other lower urinary tract symptoms (LUTS) Hypertrophy of the prostate w/o obstruction Mixed hyperlipidemia Hyperlipidemia Peptic ulcer, unspecified site, unspecified as acute or chronic, without mention of hemorrhage or perforation Tobacco use disorder 04/14/2005 Unspecified glaucoma(365.9) PAST SURGICAL HISTORY Procedure Laterality Date ARTHRP INTERPOS INTERCARPAL/METACARPAL JOINTS Right 10/07/2020 Right thumb CMC arthroplasty with LRTI, palmaris longus COLONOSCOPY - DIAGNOSTIC 06/19/1985 with biopsy COLONOSCOPY W/BIOPSY SINGLE/MULTIPLE 12/14/2006 repeat 11/2011 COLSC FLX W/RMVL OF TUMOR POLYP LESION SNARE TQ 08/25/2006 Polyp in Transverse Colon NEUROPLASTY AND/TRANSPOS MEDIAN NRV CARPAL TUNNE 06/19/1984 Carpal tunnel decomp bilateral [facility] NEUROPLASTY AND/TRANSPOS MEDIAN NRV CARPAL TUNNE 07/16/2010 Carpal tunnel decomp lt PAST SURGICAL HISTORY OF 11/19/2008 Lumbar spine surgery. PAST SURGICAL HISTORY OF 01/17/2011 lumbar spine surgery- bulging disc PAST SURGICAL HISTORY OF 05/19/2006 sigmoid colectomy- diverticultitis PAST SURGICAL HISTORY OF 12/2020 Removal of prostate SLCTV CATHJ 3RD+ ORD SLCTV ABDL PEL/LXTR BRNCH 09/25/2007 TRANSCATH STENT INIT VESSEL,PERCUT 09/25/2007 Right superficial femoral artery. FAMILY HISTORY Problem Relation Age of Onset Cancer Mother lung cancer, Cancer Father stomach cancer, Diabetes Father Cancer Maternal Grandmother breast cancer, dec. Diabetes Maternal Grandmother Prostate Cancer Brother 3 years older Coronary Artery Disease Brother 48 y.o. [place], premature Hypertension Brother Coronary Artery Disease Sister age 54, [place] Social History Tobacco Use Smoking status: Every Day Current packs/day: 1.00 Average packs/day: 1 pack/day for 52.4 years (52.4 ttl pk-yrs) Types: Cigarettes Start date: 02/23/1972 Smokeless tobacco: Never Tobacco comments: Quit 02/2023. Vaping Use Vaping status: Never Used Substance Use Topics Alcohol use: No Comment: past history of alcohol abuse Drug use: Yes Comment: Smokes 1 joint once a week Current Outpatient Medications Medication Sig ferrous sulfate 325 mg (65 mg iron) EC tablet TAKE 1 TABLET BY MOUTH EVERY MONDAY, MONDAY AND MONDAY fluticasone (FLONASE) 50 mcg/actuation nasal spray INSTILL 1 SPRAY INTO NOSTRIL EVERY MORNING TRELEGY ELLIPTA 100-62.5-25 mcg inhalation powder Inhale 1 Puff as instructed once daily. omeprazole (PRILOSEC) 20 mg capsule Take 20 mg by mouth once daily. vitamin b complex capsule Take 1 capsule by mouth every afternoon. Vitamin [id number] Acid 0.5-1 mg tab Take by mouth. losartan (COZAAR) 25 mg tablet Take 1 (ONE) tab(s) Oral EVERY Day latanoprost (XALATAN) 0.005 % ophthalmic solution instill 1 (ONE) DROP IN BOTH EYES NIGHTLY atorvastatin (LIPITOR) 40 mg tablet Take 40 mg by mouth once daily. aspirin, enteric coated (ECOTRIN LOW STRENGTH) 81 mg EC tablet Take 1 tablet by mouth once daily. meloxicam (MOBIC) 15 mg tablet (more content not included)...[facility]02-14-2025 History of Present illness Narrative* Gilbert Rhodes MD - 08/02/2024 4:34 PM EST INTERVENTIONAL PULMONARY MEDICINE VIRTUAL PROGRESS NOTE PLEASE DO NOT REMOVE FROM THE CHART OR MODIFY PRINTED COPY Referring Provider: Isaias Franz V MD ( ; ) Patient was accompanied by during this virtual call. This is a virtual visit using [employer] Video Visit. It required patient- provider interaction for the medical decision making as documented below. I have communicated my name and active licensure. The patient's identity and physical location wereverified at the time of this visit. Either the patient or their legal medical billing representative has been informed of the risks and benefits of -- and alternatives to -- treatment through a remote evaluation andconsents to proceed with the evaluation remotely. Lidia Singh is a 69 year old male with history of prostate cancer s/p prostatectomy 5 years ago, melanoma of the back removed in 2013 or so, peripheral arterial disease s/p surgery and left stenting(not on antiplatelet now) and former smoker 50 pack years quit in 02/2023 who is here to follow up on a right upper lobe nodule. No new symptoms or changes or concerns. No limitations in daily activities. No new chest pain or pressure. No changes in medications. HISTORY REVIEWED (electronic chart updated): PAST MEDICAL HISTORY Diagnosis Date Abdominal pain, right lower quadrant Abscess of intestine 05/09/2006 Alcohol abuse, in remission Benign neoplasm of colon Benign neoplasm of colon Carpal tunnel syndrome bilateral Diverticulitis of colon (without mention of hemorrhage)(562.11) 05/23/2006 DVT (deep venous thrombosis) (HCC) Embolism and thrombosis of unspecified site 09/19/2007 Right calf Headache, cluster, episodic Hypertrophy of prostate without urinary obstruction and other lower urinary tract symptoms (LUTS) Hypertrophy of the prostate w/o obstruction Mixed hyperlipidemia Hyperlipidemia Peptic ulcer, unspecified site, unspecified as acute or chronic, without mention of hemorrhage or perforation Tobacco use disorder 04/14/2005 Unspecified glaucoma(365.9) PAST SURGICAL HISTORY Procedure Laterality Date ARTHRP INTERPOS INTERCARPAL/METACARPAL JOINTS Right 10/07/2020 Right thumb CMC arthroplasty with LRTI, palmaris longus COLONOSCOPY - DIAGNOSTIC 06/19/1985 with biopsy COLONOSCOPY W/BIOPSY SINGLE/MULTIPLE 12/14/2006 repeat 11/2011 COLSC FLX W/RMVL OF TUMOR POLYP LESION SNARE TQ 08/25/2006 Polyp in Transverse Colon NEUROPLASTY &/TRANSPOS MEDIAN NRV CARPAL TUNNE 06/19/1984 Carpal tunnel decomp bilateral [facility] NEUROPLASTY &/TRANSPOS MEDIAN NRV CARPAL TUNNE 07/16/2010 Carpal tunnel decomp lt PAST SURGICAL HISTORY OF 11/19/2008 Lumbar spine surgery. PAST SURGICAL HISTORY OF 01/17/2011 lumbar spine surgery- bulging disc PAST SURGICAL HISTORY OF 05/19/2006 sigmoid colectomy- diverticultitis PAST SURGICAL HISTORY OF 12/2020 Removal of prostate SLCTV CATHJ 3RD+ ORD SLCTV ABDL PEL/LXTR BRNCH 09/25/2007 TRANSCATH STENT INIT VESSEL,PERCUT 09/25/2007 Right superficial femoral artery. FAMILY HISTORY Problem Relation Age of Onset Cancer Mother lung cancer, Cancer Father stomach cancer, Diabetes Father Cancer Maternal Grandmother breast cancer, dec. Diabetes Maternal Grandmother Prostate Cancer Brother 3 years older Coronary Artery Disease Brother 48 y.o. [place], premature Hypertension Brother Coronary Artery Disease Sister age 54, [place] Social History Tobacco Use Smoking status: Every Day Current packs/day: 1.00 Average packs/day: 1 pack/day for 52.4 years (52.4 ttl pk-yrs) Types: Cigarettes Start date: 02/23/1972 Smokeless tobacco: Never Tobacco comments: Quit 02/2023. Vaping Use Vaping status: Never Used Substance Use Topics Alcohol use: No Comment: past history of alcohol abuse Drug use: Yes Comment: Smokes 1 joint once a week Current Outpatient Medications Medication Sig ferrous sulfate 325 mg (65 mg iron) EC tablet TAKE 1 TABLET BY MOUTH EVERY MONDAY, MONDAY AND MONDAY fluticasone (FLONASE) 50 mcg/actuation nasal spray INSTILL 1 SPRAY INTO NOSTRIL EVERY MORNING TRELEGY ELLIPTA 100-62.5-25 mcg inhalation powder Inhale 1 Puff as instructed once daily. omeprazole (PRILOSEC) 20 mg capsule Take 20 mg by mouth once daily. vitamin b complex capsule Take 1 capsule by mouth every afternoon. Vitamin [id number]-Tnvpm Acid 0.5-1 mg tab Take by mouth. losartan (COZAAR) 25 mg tablet Take 1 (ONE) tab(s) Oral EVERY Day latanoprost (XALATAN) 0.005 % ophthalmic solution instill 1 (ONE) DROP IN BOTH EYES NIGHTLY atorvastatin (LIPITOR) 40 mg tablet Take 40 mg by mouth once daily. aspirin, enteric coated (ECOTRIN LOW STRENGTH) 81 mg EC tablet Take 1 tablet by mouth once daily. meloxicam (MOBIC) 15 mg tablet Take 1 tablet by mouth once daily. (Patient not taking: Reported on 08/02/2024) No current facility-administered medications for this visit. ALLERGIES Allergen Reactions Nabumetone GI Upset REVIEW OF SYSTEMS: All other ROS: negative As noted in HPI PHYSICAL EXAMINATION: VIDEO EXAM: (if completed, performed via video enabled technology) GENERAL: alert and appropriate, in no distress, well-hydrated, well nourished, and happy, smiling, interactive ASSESSMENT: # Right upper lung nodule, PET avid - appears stable, surrounded by blood vessels # Right upper lobe nodules (sub centimeter) # Multiple GGO nodules, the more prominent one is right lower lobe # Multiple lung nodules, <5mm # Former smoker 53 pack years quit 02/2023 # Strong family history for malignancy # Peripheral arterial disease of bilateral lower extremities # History of back melanoma in 2013 # History of prostate cancer s/p surgery 2020 RECOMMENDATION/PLAN: I reviewed, compared and explained the available CT chests with patient and . I think the RUL solid dominant nodule is overall stable since 12/2023 along with other ground glass lesions. The nodule is probable primary lung cancer as he has other GGOs that are probably adenocarcinoma spectrum. Hecontinues to be ECOG 0. We discussed options to follow this lung nodule and other nodules (smaller solid ones and GGOs) which includes interval follow up with repeat CT chest in 5 months (since it has been mostly stable since 12/2023 and it will bring us to 1 year from 12/2023 CT chest), biopsy including navigation/ roboticassisted bronchoscopy or surgery. I offered thoracic surgery referral so he can discuss and understand more regarding potential surgery to remove the RUL dominant solid nodule, but they would like tohold off at this time. From bronchoscopy standpoint, it is approachable, however, I shared that with the surrounding blood vessels and the nodule on the smaller side, the yield from a bronchoscopy isprobably 75% or so. If non diagnostic, then we are back to either continued follow up, referral to surgery or consider empiric radiation with high index of suspicion. After carefully weighing each option we have mutually agreed to proceed with another follow up CT chest in 5 months and then evaluate if there is any changes prior to determining if a procedure or surgery is needed. RTC in [address] chest prior. All questions were answered to the best of my ability. Written and verbal health teaching given to patient, patient verbalizes understanding and agrees with treatment plan. Electronically Signed: Gilbert Rhodes MD August 02, 2024 5:06 PM I spent a total of 30 minutes on the date of the service which included preparing to see the patient, [id number] patient care, completing clinical documentation, obtaining and/or reviewing separately obtained history, counseling and educating the patient/family/caregiver, ordering medications, mary carmen ts, or procedures, and communicating results to the patient/family/caregiver documented [facility] History of Present illness Narrative* Pratibha Mcnulty RT(R) - 07/26/2024 3:40 PM EST Radiology Service Progress Note PATIENT NAME: Lidia Singh DATE OF SERVICE: July 26, 2024 TIME: 3:59 PM PATIENT IDENTITY VERIFICATION COMPLETED USING TWO (2) IDENTIFIERS: Name and Date of confirmedby patient verbally. FALL SCREENING: Has the patient had 2 falls in the last year or 1 fall with injury or currently using an Ambulatory Assistive Device (Walker, Cane, Wheelchair, Crutches, etc.)? No PATIENT GENDER DATA: Assigned male at PATIENT RELEVANT IMPLANT DATA REVIEWED: Yes PATIENT PRESENTS WITH AN IMPLANTABLE OR ATTACHED RETURN CHECKER: No RADIOLOGY DEPARTMENT: CT; Exam(s) Completed: Chest PERIPHERAL IV DATA: Not applicable SIGNED BY: JO Coello) July 26, 2024 3:59 PM documented in this encounterOhio[facility]02-07-2025 NoteHNO ID: [id number] Author: PRATIBHA MCNULTY RT(R) Service: ? Author Type: Government Operations Consultant Type: Progress Notes Filed: 07/26/2024 15:59 Note Text: Radiology Service Progress Note PATIENT NAME: Lidia Singh DATE OF SERVICE: July 26, 2024 TIME: 3:59 PM PATIENT IDENTITY VERIFICATION COMPLETED USING TWO (2) IDENTIFIERS: Name and Date of confirmed by patient verbally. FALL SCREENING: Has the patient had 2 falls in the last year or 1 fall with injury or currently using an Ambulatory Assistive Device (Walker, Cane, Wheelchair, Crutches, etc.)? No PATIENT GENDER DATA: Assigned male at PATIENT RELEVANT IMPLANT DATA REVIEWED: Yes PATIENT PRESENTS WITH AN IMPLANTABLE OR ATTACHED RETURN CHECKER: No RADIOLOGY DEPARTMENT: CT; Exam(s) Completed: Chest PERIPHERAL IV DATA: Not applicable SIGNED BY: RT Oumou(R) July 26, 2024 3:59 [facility]11-15-2024 History of Present illness Narrative* Gilbert Rhodes MD - 05/03/2024 2:00 PM EST INTERVENTIONAL PULMONARY MEDICINE PROGRESS NOTE PLEASE DO NOT REMOVE FROM THE CHART OR MODIFY PRINTED COPY CC: I am seeing Lidia Singh in follow up for RUL nodule. Summary of this visit and my recommendations will be relayed to the referring physician by way of electronic communication or by mail. PCP: Julissa García CNP, [employer] Referring Provider: Isaias Franz V MD ( ; ) HPI: Mr. Singh is a 69 year old male with history of prostate cancer s/p prostatectomy 4 years ago,melanoma of the back removed in 2013 or so, peripheral arterial disease s/p surgery and left stenting (not on antiplatelet now) and former smoker 50 pack years quit in 02/2023 who is here to follow upon a right upper lobe nodule. No new symptoms or changes. He recently got started on smoking marijuana. REVIEW OF SYSTEMS: Gen: There are no fevers, chills, night sweats or weight loss. Resp: Negative for cough, hemoptysis, wheezing, COPD, dyspnea or shortness of breath. CV: There is no exertional chest pain or palpations. Review of systems is otherwise negative. PAST MEDICAL HISTORY: PAST MEDICAL HISTORY Diagnosis Date Abdominal pain, right lower quadrant Abscess of intestine 05/09/2006 Alcohol abuse, in remission Benign neoplasm of colon Benign neoplasm of colon Carpal tunnel syndrome bilateral Diverticulitis of colon (without mention of hemorrhage)(562.11) 05/23/2006 DVT (deep venous thrombosis) (HCC) Embolism and thrombosis of unspecified site 09/19/2007 Right calf Headache, cluster, episodic Hypertrophy of prostate without urinary obstruction and other lower urinary tract symptoms (LUTS) Hypertrophy of the prostate w/o obstruction Mixed hyperlipidemia Hyperlipidemia Peptic ulcer, unspecified site, unspecified as acute or chronic, without mention of hemorrhage or perforation Tobacco use disorder 04/14/2005 Unspecified glaucoma(365.9) MEDICATIONS: ferrous sulfate 325 mg (65 mg iron) EC tablet TAKE 1 TABLET BY MOUTH EVERY MONDAY, MONDAY AND MONDAY fluticasone (FLONASE) 50 mcg/actuation nasal spray INSTILL 1 SPRAY INTO NOSTRIL EVERY MORNING TRELEGY ELLIPTA 100-62.5-25 mcg inhalation powder Inhale 1 Puff as instructed once daily. omeprazole (PRILOSEC) 20 mg capsule Take 20 mg by mouth once daily. vitamin b complex capsule Take 1 capsule by mouth every afternoon. Vitamin U41-Xtzpj Acid 0.5-1 mg tab Take by mouth. losartan (COZAAR) 25 mg tablet Take 1 (ONE) tab(s) Oral EVERY Day latanoprost (XALATAN) 0.005 % ophthalmic solution instill 1 (ONE) DROP IN BOTH EYES NIGHTLY meloxicam (MOBIC) 15 mg tablet Take 1 tablet by mouth once daily. atorvastatin (LIPITOR) 40 mg tablet Take 40 mg by mouth once daily. aspirin, enteric coated (ECOTRIN LOW STRENGTH) 81 mg EC tablet Take 1 tablet by mouth once daily. varenicline tartrate (CHANTIX ORAL) Take by mouth. SOCIAL HISTORY: Social History Tobacco Use Smoking status: Every Day Current packs/day: 1.00 Average packs/day: 1 pack/day for 52.2 years (52.2 ttl pk-yrs) Types: Cigarettes Start date: 02/23/1972 Smokeless tobacco: Never Tobacco comments: Quit 02/2023. Vaping Use Vaping status: Never Used Substance Use Topics Alcohol use: No Comment: past history of alcohol abuse Drug use: Yes Comment: Smokes 1 joint once a week FAMILY HISTORY: FAMILY HISTORY Problem Relation Age of Onset Cancer Mother lung cancer, Cancer Father stomach cancer, Diabetes Father Cancer Maternal Grandmother breast cancer, dec. Diabetes Maternal Grandmother Prostate Cancer Brother 3 years older Coronary Artery Disease Brother 48 y.o. [place], premature Hypertension Brother Coronary Artery Disease Sister age 54, [place] PHYSICAL EXAM: VITAL SIGNS: BP 138/58 Pulse 52 Temp (Src) 97.9 (Temporal) Resp 18 Wt 145 lb 4.5 oz (65.9kg) SpO2 98% General appearance: well appearing, alert, and in no acute distress Skin: skin color, texture, turgor normal, no rashes or lesions Head: normal Eyes: Not icteric ENT: Moist mucous membranes Neck: Supple Lungs: lungs clear to auscultation no wheezing or rhonchi Heart: RRR without murmur, gallop, or rubs Abdomen: Not examined Extremities: Extremities normal. No obvious deformities, edema, or skin discoloration Neuro: Gait normal. DATA: Labs: N/A Imaging: Reviewed and compared to prior IMPRESSIONS: # Right upper lung nodule, PET avid - resolving ? # New separate right upper lobe nodule # Right lower lobe GGO # Multiple lung nodules, <5mm # Former smoker 53 pack years quit 02/2023 # Strong family history for malignancy # Peripheral arterial disease of bilateral lower extremities # History of back melanoma in 2013 # History of prostate cancer s/p surgery 2020 RECOMMENDATION/PLAN: Images reviewed and compared. Carried from prior: Good 6MWT, PFT and exercise capacity overall. ECOG 0. If needed, he is a good surgical candidate. The lung nodule today appears resolving (scan technique?) or stable, not definitely not larger compared to December 2023. We discussed options to follow this lung nodule which includes interval follow up with repeat CT chest in 3 months due to the scan showing either relatively stable nodule or resolving in addition to allowing us to follow up on other nodules. We also discussed using marijuana in other forms and avoid inhalation ones. All questions were answered to the best of my ability. Verbal health teaching given to patient, patient verbalizes understanding and agrees with treatment plan. Electronically Signed: Gilbert Rhodes MD May 03, 2024 2:16 PM documented in this encounterOhio[facility]11-15-2024 NoteHNO ID: [id number] Author: GILBERT RHODES MD Service: ? Author Type: Physician Type: Progress Notes Filed: 05/03/2024 14:17 Note Text: INTERVENTIONAL PULMONARY MEDICINE PROGRESS NOTE PLEASE DO NOT REMOVE FROM THE CHART OR MODIFY PRINTED COPY CC: I am seeing Lidia Singh in follow up for RUL nodule. Summary of this visit and my recommendations will be relayed to the referring physician by way of electronic communication or by mail. PCP: Julissa García, KO, L[employer] Referring Provider: Isaias Franz V MD ( ; ) HPI: Mr. Singh is a 69 year old male with history of prostate cancer s/p prostatectomy 4 years ago, melanoma of the back removed in 2013 or so, peripheral arterial disease s/p surgery and left stenting (not on antiplatelet now) and former smoker 50 pack years quit in 02/2023 who is here to follow up on a right upper lobe nodule. No new symptoms or changes. He recently got started on smoking marijuana. REVIEW OF SYSTEMS: Gen: There are no fevers, chills, night sweats or weight loss. Resp: Negative for cough, hemoptysis, wheezing, COPD, dyspnea or shortness of breath. CV: There is no exertional chest pain or palpations. Review of systems is otherwise negative. PAST MEDICAL HISTORY: PAST MEDICAL HISTORY Diagnosis Date Abdominal pain, right lower quadrant Abscess of intestine 05/09/2006 Alcohol abuse, in remission Benign neoplasm of colon Benign neoplasm of colon Carpal tunnel syndrome bilateral Diverticulitis of colon (without mention of hemorrhage)(562.11) 05/23/2006 DVT (deep venous thrombosis) (HCC) Embolism and thrombosis of unspecified site 09/19/2007 Right calf Headache, cluster, episodic Hypertrophy of prostate without urinary obstruction and other lower urinary tract symptoms (LUTS) Hypertrophy of the prostate w/o obstruction Mixed hyperlipidemia Hyperlipidemia Peptic ulcer, unspecified site, unspecified as acute or chronic, without mention of hemorrhage or perforation Tobacco use disorder 04/14/2005 Unspecified glaucoma(365.9) MEDICATIONS: ferrous sulfate 325 mg (65 mg iron) EC tablet TAKE 1 TABLET BY MOUTH EVERY MONDAY, MONDAY AND MONDAY fluticasone (FLONASE) 50 mcg/actuation nasal spray INSTILL 1 SPRAY INTO NOSTRIL EVERY MORNING TRELEGY ELLIPTA 100-62.5-25 mcg inhalation powder Inhale 1 Puff as instructed once daily. omeprazole (PRILOSEC) 20 mg capsule Take 20 mg by mouth once daily. vitamin b complex capsule Take 1 capsule by mouth every afternoon. Vitamin M31-Elzsk Acid 0.5-1 mg tab Take by mouth. losartan (COZAAR) 25 mg tablet Take 1 (ONE) tab(s) Oral EVERY Day latanoprost (XALATAN) 0.005 % ophthalmic solution instill 1 (ONE) DROP IN BOTH EYES NIGHTLY meloxicam (MOBIC) 15 mg tablet Take 1 tablet by mouth once daily. atorvastatin (LIPITOR) 40 mg tablet Take 40 mg by mouth once daily. aspirin, enteric coated (ECOTRIN LOW STRENGTH) 81 mg EC tablet Take 1 tablet by mouth once daily. varenicline tartrate (CHANTIX ORAL) Take by mouth. SOCIAL HISTORY: Social History Tobacco Use Smoking status: Every Day Current packs/day: 1.00 Average packs/day: 1 pack/day for 52.2 years (52.2 ttl pk-yrs) Types: Cigarettes Start date: 02/23/1972 Smokeless tobacco: Never Tobacco comments: Quit 02/2023. Vaping Use Vaping status: Never Used Substance Use Topics Alcohol use: No Comment: past history of alcohol abuse Drug use: Yes Comment: Smokes 1 joint once a week FAMILY HISTORY: FAMILY HISTORY Problem Relation Age of Onset Cancer Mother lung cancer, Cancer Father stomach cancer, Diabetes Father Cancer Maternal Grandmother breast cancer, may. Diabetes Maternal Grandmother Prostate Cancer Brother 3 years older Coronary Artery Disease Brother 48 y.o. [place], premature Hypertension Brother Coronary Artery Disease Sister age 54, [place] PHYSICAL EXAM: VITAL SIGNS: BP 138/58 Pulse 52 Temp (Src) 97.9 (Temporal) Resp 18 Wt 145 lb 4.5 oz (65.9kg) SpO2 98% General appearance: well appearing, alert, and in no acute distress Skin: skin color, texture, turgor normal, no rashes or lesions Head: normal Eyes: Not icteric ENT: Moist mucous membranes Neck: Supple Lungs: lungs clear to auscultation no wheezing or rhonchi Heart: RRR without murmur, gallop, or rubs Abdomen: Not examined Extremities: Extremities normal. No obvious deformities, edema, or skin discoloration Neuro: Gait normal. DATA: Labs: N/A Imaging: Reviewed and compared to prior IMPRESSIONS: # Right upper lung nodule, PET avid - resolving ? # New separate right upper lobe nodule # Right lower lobe GGO # Multiple lung nodules, <5mm # Former smoker 53 pack years quit 02/2023 # Strong family history for malignancy # Peripheral arterial disease of bilateral lower extremities # History of back melanoma in 2013 # History of prostate cancer s/p surgery 2020 RE (more content not included)...[facility]11-15-2024 History of Present illness Narrative* Jana Su RT(R) - 05/03/2024 1:00 PM EST Radiology Service Progress Note PATIENT NAME: Lidia Singh DATE OF SERVICE: May 03, 2024 TIME: 12:44 PM PATIENT IDENTITY VERIFICATION COMPLETED USING TWO (2) IDENTIFIERS: Name and Date of confirmedby patient verbally and Name and Date of confirmed by identification band. FALL SCREENING: Has the patient had 2 falls in the last year or 1 fall with injury or currently using an Ambulatory Assistive Device (Walker, Cane, Wheelchair, Crutches, etc.)? No PATIENT GENDER DATA: Male PATIENT RELEVANT IMPLANT DATA REVIEWED: Yes PATIENT PRESENTS WITH AN IMPLANTABLE OR ATTACHED RETURN CHECKER: No RADIOLOGY DEPARTMENT: CT; Exam(s) Completed: Chest PERIPHERAL IV DATA: Not applicable SIGNED BY: RT Jeff(Jessika) May 03, 2024 12:50 PM documented in this encounterOhio[facility]11-15-2024 NoteHNO ID: [id number] Author: JANA SU RT(R) Service: Radiology Author Type: Technologist Type: Progress Notes Filed: 05/03/2024 12:44 Note Text: Radiology Service Progress Note PATIENT NAME: Lidia Singh DATE OF SERVICE: May 03, 2024 TIME: 12:44 PM PATIENT IDENTITY VERIFICATION COMPLETED USING TWO (2) IDENTIFIERS: Name and Date of confirmed by patient verbally and Name and Date of confirmed by identification band. FALL SCREENING: Has the patient had 2 falls in the last year or 1 fall with injury or currently using an Ambulatory Assistive Device (Walker, Cane, Wheelchair, Crutches, etc.)? No PATIENT GENDER DATA: Male PATIENT RELEVANT IMPLANT DATA REVIEWED: Yes PATIENT PRESENTS WITH AN IMPLANTABLE OR ATTACHED RETURN CHECKER: No RADIOLOGY DEPARTMENT: CT; Exam(s) Completed: Chest PERIPHERAL IV DATA: Not applicable SIGNED BY: RT Jeff(R) May 03, 2024 12:50 [facility]10-04-2024 Telephone encounter Note* Telephone Encounter - Dmitry Ortiz - 03/22/2024 9:55 AM EDT Spoke with spouse to schedule CT & f/u 05/03 [facility]10-04-2024 Miscellaneous Notes* Telephone Encounter - Dmitry Ortiz - 03/22/2024 9:55 AM EDT Spoke with spouse to schedule CT & f/u 05/03 documented in this encounterOhiohealth [facility] Hospital09-26-2024 Telephone encounter Note * Telephone Encounter - Gilbert Rhodes MD - 03/14/2024 4:16 PM EDT I called patient to follow up plan since we have had so much difficulty tracking done his prior CT chests. They too have tried to send it to us. I explained that nevertheless, we need to follow up with another CT chest. Will plan for this in early Apr followed by same day visit with me to make their trip worth. They verbalized understanding to the plan. I will ask my schedulers to reach out to them. See Sam Rhodes MD Interventional Pulmonary 03/14/24 [facility]09-26-[facility] Miscellaneous Notes* Telephone Encounter - Nahomi Rhodes MD - 03/14/2024 4:16 PM EDT I called patient to follow up plan since we have had so much difficulty tracking done his prior CT chests. They too have tried to send it to us. I explained that nevertheless, we need to follow up with another CT chest. Will plan for this in early Apr followed by same day visit with me to make their trip worth. They verbalized understanding to the plan. I will ask my schedulers to reach out to them. See Sam Rhodes MD Interventional Pulmonary 03/14/24 documented in this encounterOhio[facility] Hospital09-11-2024 Telephone encounter Note * Telephone Encounter - Janett Waters - 02/28/2024 8:[address] scan from Dr Isaias Franz [facility] 2022 [facility] Miscellaneous Notes* Telephone Encounter - Janett Waters - 02/28/2024 8:[address] scan from Dr Isaias Franz from 2022 documented in this encounterOhiohealth Shelby Hospital09-06-2024 Instructions* Patient Instructions* Gilbert Rhodes MD - 02/23/2024 11:24 AM EDT I will request for your other scans to be uploaded. Once I have it to review and compare, I will give you a call and we will decide on a plan. documented in this encounterOhiohealth Shelby Hospital09-06-2024 History of Present illness Narrative* Gilbert Rhodes MD - 02/23/2024 11:00 AM EDT INTERVENTIONAL PULMONARY MEDICINE CONSULTATION PLEASE DO NOT REMOVE FROM THE CHART OR MODIFY PRINTED COPY Patient Name: Lidia Singh PRIMARY CARE PHYSICIAN: Julissa García CNP, LIGHT BULB ASSEMBLER REFERRING PHYSICIAN: Isaias Franz V MD Interpreting services utilized via (arranging funeral director service modality: arranging funeral director not needed for appointment) Consultation requested by Dr. Franz for an opinion regarding (R91.1) Nodule of upper lobe of right lung (primary encounter diagnosis). My final recommendations/evaluation will be communicated back to the requesting physician by way of shared medical record or letter via US mail. CHIEF COMPLAINT: Abnormal PET scan HISTORY OF PRESENT ILLNESS: Lidia Singh is a 68 year old male with a history of prostate cancer s/p prostatectomy 3 years ago, melanoma of the back removed in 2014 or so, peripheral arterial diseases/p surgery and left stenting (not on antiplatelet now) and former smoker 50 pack years quit in 02/2023 who is referred for evaluation of right upper lobe nodule. He is overall doing well. The lung nodules were found as part of lung cancer screening. He does notfeel winded or has a lot of cough. No unintentional weight loss. No chest pain or pressure even with exertion. Denies heartburn/ reflux. 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 They live about [place] miles out in [place]. PAST MEDICAL HISTORY No date: Abdominal pain, right lower quadrant 05/09/2006: Abscess of intestine No date: Alcohol abuse, in remission No date: Benign neoplasm of colon No date: Benign neoplasm of colon No date: Carpal tunnel syndrome Comment: bilateral 05/23/2006: Diverticulitis of colon (without mention of hemorrhage)(562.11) No date: DVT (deep venous thrombosis) (HCC) 09/19/2007: Embolism and thrombosis of unspecified site Comment: Right calf No date: Headache, cluster, episodic No date: Hypertrophy of prostate without urinary obstruction and other lower urinary tract symptoms (LUTS) Comment: Hypertrophy of the prostate w/o obstruction No date: Mixed hyperlipidemia Comment: Hyperlipidemia No date: Peptic ulcer, unspecified site, unspecified as acute or chronic, without mention of hemorrhage or perforation 04/14/2005: Tobacco use disorder No date: Unspecified glaucoma(365.9) PAST SURGICAL HISTORY 10/07/2020: ARTHRP INTERPOS INTERCARPAL/METACARPAL JOINTS; Right Comment: Right thumb CMC arthroplasty with LRTI, palmaris longus 06/19/1985: COLONOSCOPY - DIAGNOSTIC Comment: with biopsy 12/14/2006: COLONOSCOPY W/BIOPSY SINGLE/MULTIPLE Comment: repeat 11/201108/25/2006: COLSC FLX W/RMVL OF TUMOR POLYP LESION SNARE TQ Comment: Polyp in Transverse Colon 06/19/1984: NEUROPLASTY &/TRANSPOS MEDIAN NRV CARPAL TUNNE Comment: Carpal tunnel decomp bilateral [facility] 07/16/2010: NEUROPLASTY &/TRANSPOS MEDIAN NRV CARPAL TUNNE Comment: Carpal tunnel decomp lt 11/19/2008: PAST SURGICAL HISTORY OF Comment: Lumbar spine surgery. 01/17/2011: PAST SURGICAL HISTORY OF Comment: lumbar spine surgery- bulging disc 05/19/2006: PAST SURGICAL HISTORY OF Comment: sigmoid colectomy- diverticultitis 12/2020: PAST SURGICAL HISTORY OF Comment: Removal of prostate 09/25/2007: SLCTV CATHJ 3RD+ ORD SLCTV ABDL PEL/LXTR BRNCH 09/25/2007: TRANSCATH STENT INIT VESSEL,PERCUT Comment: Right superficial femoral artery. FAMILY HISTORY Problem Relation Age of Onset Cancer Mother lung cancer, Cancer Father stomach cancer, Diabetes Father Cancer Maternal Grandmother breast cancer, dec. Diabetes Maternal Grandmother Prostate Cancer Brother 3 years older Coronary Artery Disease Brother 48 y.o. [place], premature Hypertension Brother Coronary Artery Disease Sister age 54, [place] Social History Tobacco Use Smoking status: Every Day Current packs/day: 1.00 Average packs/day: 1 pack/day for 52.0 years (52.0 ttl pk-yrs) Types: Cigarettes Start date: 02/23/1972 Smokeless tobacco: Never Tobacco comments: Quit 02/2023. Vaping Use Vaping status: Never Used Substance Use Topics Alcohol use: No Comment: past history of alcohol abuse Drug use: Yes Comment: Smokes 1 joint once a week ALLERGIES: ALLERGIES Allergen Reactions Nabumetone GI Upset CURRENT OUTPATIENT MEDICATIONS: varenicline tartrate (CHANTIX ORAL) Take by mouth. Vitamin C09-Rjvbg Acid 0.5-1 mg tab Take by mouth. losartan (COZAAR) 25 mg tablet Take 1 (ONE) tab(s) Oral EVERY Day latanoprost (XALATAN) 0.005 % ophthalmic solution instill 1 (ONE) DROP IN BOTH EYES NIGHTLY meloxicam (MOBIC) 15 mg tablet Take 1 tablet by mouth once daily. atorvastatin (LIPITOR) 40 mg tablet Take 40 mg by mouth once daily. aspirin, enteric coated (ECOTRIN LOW STRENGTH) 81 mg EC tablet Take 1 tablet by mouth once daily. REVIEW OF SYSTEMS GENERAL:No weight loss, malaise or fevers., SEE HPI HEENT:Negative for frequent or significant headaches NECK:Negative for lumps, goiter, pain and significant neck swelling RESPIRATORY: Negative for cough, wheezing or shortness of breath. CARDIOVASCULAR: Negative for chest pain, leg swelling or palpitations. GASTROINTESTINAL: No heartburn or reflux symptoms GENITOURINARY: Not reviewed CAREGIVERS NON MEDICAL: NA MUSCULOSKELETAL: Negative for joint pain or swelling, back pain or muscle pain. NEUROLOGIC:Negative for focal numbness or weakness, headaches and dizziness or syncope. SKIN:Negative for lesions, rash, and itching. PSYCHIATRIC: Not reviewed HEMATOLOGIC/LYMPHATIC/IMMUNOLOGIC:Negative for prolonged bleeding, bruising easily or swollen nodes. ENDOCRINE: Not reviewed The remainder of the ROS was negative. PHYSICAL EXAMINATION: VITAL SIGNS: BP 146/52 Pulse 55 Temp (Src) 97.1 (Temporal) Resp 15 Wt 144 lb 6.4 oz (65.5kg) SpO2 99% General appearance: well appearing, alert, and in no acute distress Skin: skin color, texture, turgor normal, no rashes or lesions Head: normal Eyes: Not icteric ENT: Moist mucous membranes Neck: Supple, no obvious adenopathy Lungs: lungs clear to auscultation no wheezing or rhonchi Heart: RRR without murmur, gallop, or rubs. Abdomen: Not examined Extremities: Extremities normal. No deformities, edema, or skin discoloration. Both legs has healedsurgical bypass scars. Neuro: Gait normal. LAST LAB RESULTS: Lab results were reviewed. IMAGING: Reviewed the PET IMPRESSIONS: # Right upper lung nodule, PET avid # Reported multiple lung nodules # Former smoker 53 pack years quit 02/2023 # Strong family history for malignancy # Peripheral arterial disease of bilateral lower extremities # History of back melanoma in 2013 # History of prostate cancer s/p surgery 2020 RECOMMENDATION/PLAN: Reviewed PET with patient. No prior comparison scan available, though they report he has had other CT chests in the past few years. Discussed potential cause for the nodules including but not limited to lung malignancy or infectious. With his risk, I am more concern for primary lung malignancy, but I would like to make sure we also get the other CT chests and review, to evaluate growth of the nodules, specifically the RUL as the size is <1 cm. Depending on the serial imagings once I am able to review, I will then give them a call to discuss a plan. If the nodule has been mostly stable and the size is small, I may favor continued surveillance in 6 months or referral to surgery for consideration of removal. He has good 6MWT and PFT today. If it has demonstrated growth over time, we may consider biopsy versus again surgery referral for removal, but I also need to evaluate the other 2 nodules that they report is also in the right lung but not obvious on PET scan. All questions were answered to the best of my ability. Verbal health teaching given to patient, patient verbalizes understanding and agrees with treatment plan. I have sent a message to my legal secretary to obtain outside imagings for review. Electronically Signed: Gilbert Rhodes MD February 23, 2024 11:40 AM documented in this encounterOhiohealth [facility]09-06-2024 Procedure note* Eugenio Howard RRT - 02/23/2024 10:07 AM EDTAssociated Order(s): SIX MINUTE WALK RESPIRATORY THERAPY SIX MINUTE WALK TEST OXIMETRY REPORT Six Minute Walk Test for This Encounter Oxygen Device Liters FIO2 SpO2% HR Activity Feet Speed (MPH) Flag R/A 100 59 Resting R/A 100 74 Six Minute Walk 1190 2.3 R/A 100 64 Recovery 1 minute post R/A 100 56 Recovery 2 minute post R/A 100 54 Recovery 3 minute post General Information Height Weight Pulse Oximetry Site Oximeter Pre Blood Pressure Post Blood Pressure Total Time Spent (min) 157.4 cm (5' 1.97") 65.5 kg (144 lb 6.4 oz) Forehead Masimo 153/61 175/55 30 _ Distance Walked (meters) Distance Walked (feet) Male Predicted Walk Distance (feet) Male Lower Limit of Normal (feet) Male % Predicted Total Duration Of The Stops (seconds) 362.71 1190 1380.91 878.91 86.2 -- _ Lowest SpO2 During 6 Minute Walk Pre-Harjeet Dyspnea Rating Pre-Harjeet Fatigue Rating Post Harjeet Dyspnea Rating Post Harjeet Fatigue Rating 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 . The patient required Room Air to complete the test. The distance the patient walked in six minutes is within the predicted normal range. This is the first time patient takes the six minute walk test. The patient perceived their dyspnea during the six minute walk test to be 2- Slight on the modified Harjeet scale. The patient perceived their fatigue during the six minute walk test to be 2- Slight on the modified Harjeet scale. I have reviewed the findings and made appropriate revisions as needed. SIGNATURE: Eugenio Cody MD PATIENT NAME: Lidia Singh DATE: February 23, 2024 TIME: 11:42 AM [facility] Procedure note* Eugenio Howard RRT - 02/23/2024 10:07 AM EDTAssociated Order(s): SIX MINUTE WALK RESPIRATORY THERAPY SIX MINUTE WALK TEST OXIMETRY REPORT Six Minute Walk Test for This Encounter Oxygen Device Liters FIO2 SpO2% HR Activity Feet Speed (MPH) Flag R/A 100 59 Resting R/A 100 74 Six Minute Walk 1190 2.3 R/A 100 64 Recovery 1 minute post R/A 100 56 Recovery 2 minute post R/A 100 54 Recovery 3 minute post General Information Height Weight Pulse Oximetry Site Oximeter Pre Blood Pressure Post Blood Pressure Total Time Spent (min) 157.4 cm (5' 1.97") 65.5 kg (144 lb 6.4 oz) Forehead Masimo 153/61 175/55 30 _ Distance Walked (meters) Distance Walked (feet) Male Predicted Walk Distance (feet) Male Lower Limit of Normal (feet) Male % Predicted Total Duration Of The Stops (seconds) 362.71 1190 1380.91 878.91 86.2 -- _ Lowest SpO2 During 6 Minute Walk Pre-Harjeet Dyspnea Rating Pre-Harjeet Fatigue Rating Post Harjeet Dyspnea Rating Post Harjeet Fatigue Rating 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 . The patient required Room Air to complete the test. The distance the patient walked in six minutes is within the predicted normal range. This is the first time patient takes the six minute walk test. The patient perceived their dyspnea during the six minute walk test to be 2- Slight on the modified Harjeet scale. The patient perceived their fatigue during the six minute walk test to be 2- Slight on the modified Harjeet scale. I have reviewed the findings and made appropriate revisions as needed. SIGNATURE: Eugenio Cody MD PATIENT NAME: iLdia Singh DATE: February 23, 2024 TIME: 11:42 AM documented in this encounterOhio[facility]09-06-2024 History of Present illness Narrative* Eugenio Howard, KATHLEEN - 02/23/2024 9:36 AM EDT PULM FUNCTION: Provider: Gilbert Rhodes MD Spirometry w/BD: 1 DLCO: 1 LV - Box: 1 6 MW: 1 System: 4 - [id number] documented in this encounterOhiohealth Shelby Hospital08-06-2024 Telephone encounter Note * Telephone Encounter - Janett Waters - 01/23/2024 10:26 AM EDT Called and faxed request to [facility] requesting PET scan images from 01/08 and 12/18 Ct. Also requested all older images from [facility]. [facility] Miscellaneous Notes* Telephone Encounter - Janett Waters - 01/23/2024 10:26 AM EDT Called and faxed request to [facility] requesting PET scan images from 01/08 and 12/18 Ct. Also requested all older images from [facility]. documented in this encounterOhiohealth Shelby Hospital08-05-2024 Telephone encounter Note * Telephone Encounter - Felicitas Prajapati RN - 01/22/2024 11:56 AM EDT 01/22/2024: Navigator contacted patient to discuss bronchoscopy referral. However, no recent images have arrived to be reviewed However, patient was not available to discuss his recent scans. Message was left to return call to the navigator's office. Navigator received a return call from the , Sherlyn. She reports the patient had PET scan done 01/09/2024; CT done 12/19/2023 at [facility] navigator will request chief administrative officer to obtain. reports they are interested in getting the process going. She was encouraged to call if additional issues arise. Otherwise, she will anticipate an updated call from the navigator. [facility] Miscellaneous Notes* Telephone Encounter - Felicitas Prajapati RN - 01/22/2024 11:56 AM EDT 01/22/2024: Navigator contacted patient to discuss bronchoscopy referral. However, no recent images have arrived to be reviewed However, patient was not available to discuss his recent scans. Message was left to return call to the navigator's office. Navigator received a return call from the , Sherlyn. She reports the patient had PET scan done 01/09/2024; CT done 12/19/2023 at [facility] navigator will request chief administrative officer to obtain. reports they are interested in getting the process going. She was encouraged to call if additional issues arise. Otherwise, she will anticipate an updated call from the navigator. documented in this encounterOhiohealth [facility] Hospital08-02-2024 Telephone encounter Note * Telephone Encounter - JtJanett - 01/19/2024 8:39 AM EDT Referring Physician: Dr. Isaias Franz Address: [address] [place] [id number] Phone #: [phone] Fax #: [phone] Reason for referral: EBUS Is there CareEverywhere Records: Yes Is there Imaging available: No - No results found. - Recent CT: No - Date of CT: n/a Routing: If records incomplete route to Bronch Partition Setter for completion/review If records complete route to [Felicitas Prajapati RN] for triage Imported External Referral packet from Dr Franz (dated 01/19/24). Please allow time delay for documents to appear in [facility] (Scanned Documents Tab). [facility] Miscellaneous Notes* Telephone Encounter - Janett Waters - 01/19/2024 8:39 AM EDT Referring Physician: Dr. Isaias Franz Address: [address] [place] [address] [place], [facility] [address] Phone #: [phone] Fax #: [phone] Reason for referral: EBUS Is there CareEverywhere Records: Yes Is there Imaging available: No - No results found. - Recent CT: No - Date of CT: n/a Routing: If records incomplete route to Bronch Partition Setter for completion/review If records complete route to [Felicitas Prajapati RN] for triage Imported External Referral packet from Dr Franz (dated 01/19/24). Please allow time delay for documents to appear in [facility] (Scanned Documents Tab). documented in this encounterOhiohealth Shelby Hospital07-31-2024 History of Present illness Narrative* Ta Dover MD - 01/17/2024 1:45 PM EDT 01/17/2024 Lidia Singh 1955 Chief Complaint Patient presents with Follow-up 1st follow up aortogram with iliac stent 01/02/24 Patient returns for post operative evaluation status post arteriogram with stenting of the left iliac artery. The patient denies any unexpected problems since the procedure. He states that his left leg claudication symptoms have resolved. 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 Heart rhythm is regular. The patient has a palpable bypass graft pulse in both legs. Right Left Brachial Radial Femoral Popliteal Dorsalis Pedis 2 2 Posterior Tibial 2 2 (3=normal, 2=diminished, 1=barely palpable, 4=widened) Assessment: Post-arteriogram. 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 Plan: I am pleased with his recovery. I will get a postprocedure arterial duplex on the left as a baseline and call him with the results. No follow-ups on file. . documented in this [facility]07-31-2024 History of Present illness Narrative* Ta Dover MD - 01/17/2024 1:45 PM EDT 01/17/2024 Lidia Singh 1955 Chief Complaint Patient presents with Follow-up 1st follow up aortogram with iliac stent 01/02/24 Patient returns for post operative evaluation status post arteriogram with stenting of the left iliac artery. The patient denies any unexpected problems since the procedure. He states that his left leg claudication symptoms have resolved. 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 Heart rhythm is regular. The patient has a palpable bypass graft pulse in both legs. Right Left Brachial Radial Femoral Popliteal Dorsalis Pedis 2 2 Posterior Tibial 2 2 (3=normal, 2=diminished, 1=barely palpable, 4=widened) Assessment: Post-arteriogram. 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 Plan: I am pleased with his recovery. I will get a postprocedure arterial duplex on the left as a baseline and call him with the results. No follow-ups on file. . documented in this [facility]07-31-2024 Miscellaneous Notes* Addendum Note - Ta Dover MD - 01/17/2024 1:45 PM EDTAddended by: TA DOVER on: 01/19/2024 08:32 AM Modules accepted: Orders documented in this [facility]07-31-2024 Note* Addendum Note - Ta Dover MD - 01/17/2024 1:45 PM EDTAddended by: TA DOVER on: 01/19/2024 08:32 AM Modules accepted: Orders [id number] Miscellaneous Notes* Perioperative Nursing Note - Sravan Rahman RN - 01/02/2024 12:50 PM EDT Discharge information given to the patient. Patient and family verbalized understanding of information. All questions were answered before discharge. Patient ambulated, denies dizziness or nausea. Tolerating PO fluids and crackers. Vital signs are stable. Patient has changed and is being discharged home in a wheelchair with valuables.No bleeding/ hematoma at site on discharge * Perioperative Nursing Note - Anel Yancey RN - 01/02/2024 11:35 AM EDT Secure chat to resident Dr Garcia, Plavix 300mg dose was placed as outpatient need to change to inpatient so that it can be given * Perioperative Nursing Note - Anel Yancey RN - 01/02/2024 10:50 AM EDT Per SWEATER OPERATOR patient is a MAC no EKG monitoring required per policy * Op Note - Ta Dover MD - 01/02/2024 8:20 AM EDT OPERATIVE NOTE Lidia Singh 1955 DATE OF PROCEDURE: 01/02/2024 SURGEON: Ta Dover MD Procedure: Aortogram with bilateral iliofemoral arteriogram; left iliac stent Preoperative Diagnosis: Atherosclerosis with bilateral lower extremity claudication Postoperative Diagnosis: Same Anesthesia: General. Assist: Radha Estimated Blood Loss: Minimal Indications: 68-year-old white male who is undergone previous bilateral femoral to tibial peroneal trunk bypasses. He has a diminished ankle-brachial index on the left and is brought to the operatingroom for arteriography and further evaluation. Description of Procedure: Patient was placed in the supine position and both groins were shaved prepped and draped in usual sterile fashion. Under ultrasound guidance the right groin was infiltrated with 1% lidocaine and the right common femoral artery cannulated with an 18-gauge needle followed bysoft tip V2contactson wire. 5 Guyanese sheath was placed in the right groin followed by 5 Guyanese Omni Flush catheter placed into the distal aorta. Aortogram and iliofemoral arteriogram was obtained. The distal aorta and iliac system was patent on both sides. The there was atherosclerotic irregularity withno significant stenosis on the right and a patent internal iliac artery on the right. On the left side the patient had a high-grade stenosis in the left common iliac artery of about 80% as well and has a 60% stenosis in the proximal external iliac artery. The origin of the left internal iliac artery appeared to be occluded with reconstitution of the distal internal iliac through collaterals. Right common femoral was continuous into the deep femoral. The right superficial femoral was occluded wit h reconstitution of the popliteal artery at the knee joint. There is a patent femoral to tibioperoneal trunk bypass with no stenosis. The anterior tibial artery is occluded in the upper calf while the posterior tibial and peroneal arteries are patent down to the right foot. On the left side the patient has a patent common femoral continuous into the deep femoral. Once again the superficial femoral artery was occluded at its origin and reconstituted as the popliteal artery at the knee joint. There is a patent femoral to tibioperoneal trunk bypass. The anterior tibial artery is occluded in the upper calf while the peroneal and posterior tibial arteries appear to be patent down to the left foot . A 6 Guyanese sheath was placed into the left common femoral artery under ultrasound guidance and the patient was systemically heparinized. The left iliac system stenoses were treated with a 9 x 80 Zilver stent inflated to 8 mm at 12 abhijit. Completion arteriogram revealed resolution of the stenoses inthe left iliac system with brisk flow. Anticoagulation was then reversed with intravenous protamineand guidewires catheters and sheaths were removed from both groins. Hemostasis of the right groins was achieved with digital pressure followed by dry sterile dressing. Estimated blood loss was minimal and the patient was taken to the recovery room in stable condition postoperatively with excellent Doppler signals at both ankles. Ta Dover MD documented in this [facility]07-16-2024 Note* Perioperative Nursing Note - Sravan Rahman RN - 01/02/2024 12:50 PM EDT Discharge information given to the patient. Patient and family verbalized understanding of information. All questions were answered before discharge. Patient ambulated, denies dizziness or nausea. Tolerating PO fluids and crackers. Vital signs are stable. Patient has changed and is being discharged home in a wheelchair with valuables.No bleeding/ hematoma at site on discharge [facility] [id number] Note* Perioperative Nursing Note - Sravan Rahman RN - 01/02/2024 12:50 PM EDT Discharge information given to the patient. Patient and family verbalized understanding of information. All questions were answered before discharge. Patient ambulated, denies dizziness or nausea. Tolerating PO fluids and crackers. Vital signs are stable. Patient has changed and is being discharged home in a wheelchair with valuables.No bleeding/ hematoma at site on discharge [place] [id number] Note* Perioperative Nursing Note - Anel Yancey RN - 01/02/2024 11:35 AM EDT Secure chat to resident Dr Garcia, Plavix 300mg dose was placed as outpatient need to change to inpatient so that it can be given [place] [id number] Note* Perioperative Nursing Note - Anel Yancey RN - 01/02/2024 11:35 AM EDT Secure chat to resident Dr Garcia, Plavix 300mg dose was placed as outpatient need to change to inpatient so that it can be given [place] [id number] Note* Perioperative Nursing Note - Anel Yancey RN - 01/02/2024 10:50 AM EDT Per SWEATER OPERATOR patient is a MAC no EKG monitoring required per policy [place] [id number] Note* Perioperative Nursing Note - Anel Yancey RN - 01/02/2024 10:50 AM EDT Per SWEATER OPERATOR patient is a MAC no EKG monitoring required per policy [id number] Hospital Discharge instructions* Discharge Instructions* Fabioal Farley DO - 01/02/2024 10:31 AM EDT -No heavy lifting greater than 10 lbs. for 2 weeks. May remove dressing in day. Do not shower or get incision wet until dressing removed. -Call if you experience any bleeding, swelling, or pain in your groins documented in this [facility]07-16-2024 Note* Op Note - Ta Dover MD - 01/02/2024 8:20 AM EDT OPERATIVE NOTE Lidia Singh 1955 DATE OF PROCEDURE: 01/02/2024 SURGEON: Ta Dover MD Procedure: Aortogram with bilateral iliofemoral arteriogram; left iliac stent Preoperative Diagnosis: Atherosclerosis with bilateral lower extremity claudication Postoperative Diagnosis: Same Anesthesia: General. Assist: Radha Estimated Blood Loss: Minimal Indications: 68-year-old white male who is undergone previous bilateral femoral to tibial peroneal trunk bypasses. He has a diminished ankle-brachial index on the left and is brought to the operatingroom for arteriography and further evaluation. Description of Procedure: Patient was placed in the supine position and both groins were shaved prepped and draped in usual sterile fashion. Under ultrasound guidance the right groin was infiltrated with 1% lidocaine and the right common femoral artery cannulated with an 18-gauge needle followed bysoft tip V2contactson wire. 5 Guyanese sheath was placed in the right groin followed by 5 Guyanese Omni Flush catheter placed into the distal aorta. Aortogram and iliofemoral arteriogram was obtained. The distal aorta and iliac system was patent on both sides. The there was atherosclerotic irregularity withno significant stenosis on the right and a patent internal iliac artery on the right. On the left side the patient had a high-grade stenosis in the left common iliac artery of about 80% as well and has a 60% stenosis in the proximal external iliac artery. The origin of the left internal iliac artery appeared to be occluded with reconstitution of the distal internal iliac through collaterals. Right common femoral was continuous into the deep femoral. The right superficial femoral was occluded wit h reconstitution of the popliteal artery at the knee joint. There is a patent femoral to tibioperoneal trunk bypass with no stenosis. The anterior tibial artery is occluded in the upper calf while the posterior tibial and peroneal arteries are patent down to the right foot. On the left side the patient has a patent common femoral continuous into the deep femoral. Once again the superficial femoral artery was occluded at its origin and reconstituted as the popliteal artery at the knee joint. There is a patent femoral to tibioperoneal trunk bypass. The anterior tibial artery is occluded in the upper calf while the peroneal and posterior tibial arteries appear to be patent down to the left foot . A 6 Guyanese sheath was placed into the left common femoral artery under ultrasound guidance and the patient was systemically heparinized. The left iliac system stenoses were treated with a 9 x 80 Zilver stent inflated to 8 mm at 12 abhijit. Completion arteriogram revealed resolution of the stenoses inthe left iliac system with brisk flow. Anticoagulation was then reversed with intravenous protamineand guidewires catheters and sheaths were removed from both groins. Hemostasis of the right groins was achieved with digital pressure followed by dry sterile dressing. Estimated blood loss was minimal and the patient was taken to the recovery room in stable condition postoperatively with excellent Doppler signals at both ankles. Ta Dover MD [facility] [id number] Note* Op Note - Ta Dover MD - 01/02/2024 8:20 AM EDT OPERATIVE NOTE Lidia Singh 1955 DATE OF PROCEDURE: 01/02/2024 SURGEON: Ta Dover MD Procedure: Aortogram with bilateral iliofemoral arteriogram; left iliac stent Preoperative Diagnosis: Atherosclerosis with bilateral lower extremity claudication Postoperative Diagnosis: Same Anesthesia: General. Assist: Urwin Estimated Blood Loss: Minimal Indications: 68-year-old white male who is undergone previous bilateral femoral to tibial peroneal trunk bypasses. He has a diminished ankle-brachial index on the left and is brought to the operatingroom for arteriography and further evaluation. Description of Procedure: Patient was placed in the supine position and both groins were shaved prepped and draped in usual sterile fashion. Under ultrasound guidance the right groin was infiltrated with 1% lidocaine and the right common femoral artery cannulated with an 18-gauge needle followed bysoft tip Bentson wire. 5 Guyanese sheath was placed in the right groin followed by 5 Guyanese Omni Flush catheter placed into the distal aorta. Aortogram and iliofemoral arteriogram was obtained. The distal aorta and iliac system was patent on both sides. The there was atherosclerotic irregularity withno significant stenosis on the right and a patent internal iliac artery on the right. On the left side the patient had a high-grade stenosis in the left common iliac artery of about 80% as well and has a 60% stenosis in the proximal external iliac artery. The origin of the left internal iliac artery appeared to be occluded with reconstitution of the distal internal iliac through collaterals. Right common femoral was continuous into the deep femoral. The right superficial femoral was occluded wit h reconstitution of the popliteal artery at the knee joint. There is a patent femoral to tibioperoneal trunk bypass with no stenosis. The anterior tibial artery is occluded in the upper calf while the posterior tibial and peroneal arteries are patent down to the right foot. On the left side the patient has a patent common femoral continuous into the deep femoral. Once again the superficial femoral artery was occluded at its origin and reconstituted as the popliteal artery at the knee joint. There is a patent femoral to tibioperoneal trunk bypass. The anterior tibial artery is occluded in the upper calf while the peroneal and posterior tibial arteries appear to be patent down to the left foot . A 6 Guyanese sheath was placed into the left common femoral artery under ultrasound guidance and the patient was systemically heparinized. The left iliac system stenoses were treated with a 9 x 80 Zilver stent inflated to 8 mm at 12 abhijit. Completion arteriogram revealed resolution of the stenoses inthe left iliac system with brisk flow. Anticoagulation was then reversed with intravenous protamineand guidewires catheters and sheaths were removed from both groins. Hemostasis of the right groins was achieved with digital pressure followed by dry sterile dressing. Estimated blood loss was minimal and the patient was taken to the recovery room in stable condition postoperatively with excellent Doppler signals at both ankles. Ta Dover MD [facility] [id number] Attending History and physical note* Ta Dover MD - 01/02/2024 8:00 AM EDT H&P reviewed. The patient was examined and there are no changes to the H&P. Source Note - Ta Dover MD - 12/11/2023 11:13 AM EDT HISTORY OF PRESENT ILLNESS: The patient is a 68 y.o. male who returns for follow-up of peripheral vascular disease. The patientstates that his legs really have not been bothering him and that he is able to ambulate fairly wellwith no significant claudication symptoms. He denies any new ulcers or rest pain from the last office visit. He is here to discuss his recent vascular testing. He has had previous bilateral femoral to T P trunk bypasses with in situ saphenous vein graft. 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 Authorizing Provider aspirin 81 MG EC tablet Take 81 mg by mouth daily. Historical Provider, atorvastatin (Lipitor) 80 MG tablet Take 80 mg by mouth daily. 12/11/22 Historical Provider, Cobalamin Combinations (Vitamin W86-Ffsot Acid) 500-400 MCG tablet Take by mouth. Historical Provider, latanoprost (Xalatan) 0.005 % ophthalmic solution instill 1 (ONE) drop into both eyes every night 09/30/22 Historical Provider, losartan (Cozaar) 25 MG tablet Take 25 mg by mouth daily. 11/02/22 Historical Provider, omeprazole (PriLOSEC) [address] capsule Take 20 mg by mouth daily. 01/19/23 Historical Provider, polyethylene glycol, PEG, 3350 (Glycolax) 17 GM/SCOOP powder TAKE 17G BY MOUTH DAILY. DISSOLVE IN WATER OR JUICE 09/16/22 Historical Provider, Allergies: Patient has no known allergies. Social History Socioeconomic History Marital status: Spouse name: Not on file Number of children: Not on file Years of education: Not on file Highest education level: Not on file Occupational History Not on file Tobacco Use Smoking status: Former Current packs/day: 0.00 Types: Cigarettes Quit date: 02/2023 Years since quittin.8 Smokeless tobacco: Never Substance and Sexual Activity Alcohol use: No Drug use: Yes Types: Marijuana Sexual activity: Not on file Other Topics Concern Not on file Social History Narrative Not on file Social Determinants of Health Financial Resource Strain: Not on file Food Insecurity: Not on file Transportation Needs: Not on file Physical Activity: Not on file Stress: Not on file Social Connections: Not on file Intimate Partner Violence: Not on file Housing Stability: Not on file Family History Family History Problem Relation Name Age of Onset High Blood Pressure Brother Cancer Mother Cancer Brother Cancer Father Diabetes Father Review of Systems Constitutional: Positive for appetite change (no appetite). HENT: Negative. Eyes: Negative. Respiratory: Negative. Cardiovascular: Negative. Gastrointestinal: Positive for constipation. Endocrine: Negative. Genitourinary: Negative. Musculoskeletal: Positive for myalgias (L thigh area pain at times). Skin: Negative. Allergic/Immunologic: Negative. Neurological: Negative. Hematological: Negative. Psychiatric/Behavioral: Negative. LABS: Lab Results Component Value Date CREATININE 1.23 11/22/2023 No results found for: "WBC", "HGB", "HCT", "MCV", "PLT" No results found for: "INR", "PROTIME" No results found for: "VLDL" Physical Exam Constitutional: Appearance: Normal appearance. HENT: Head: Normocephalic and atraumatic. Nose: Nose normal. Mouth/Throat: Mouth: Mucous membranes are moist. Pharynx: Oropharynx is clear. Eyes: Extraocular Movements: Extraocular movements intact. Pupils: Pupils are equal, round, and reactive to light. Cardiovascular: Rate and Rhythm: Normal rate and regular rhythm. Pulses: Carotid pulses are 2+ on the right side and 2+ on the left side. Radial pulses are 2+ on the right side and 2+ on the left side. Femoral pulses are 2+ on the right side and 2+ on the left side. Popliteal pulses are 0 on the right side and 0 on the left side. Dorsalis pedis pulses are 2+ on the right side and 0 on the left side. Posterior tibial pulses are 2+ on the right side and 0 on the left side. Pulmonary: Effort: Pulmonary effort is normal. Breath sounds: Normal breath sounds. Abdominal: General: Abdomen is flat. Bowel sounds are normal. Palpations: Abdomen is soft. Musculoskeletal: General: Normal range of motion. Cervical back: Normal range of motion and neck supple. Skin: General: Skin is warm and dry. Neurological: General: No focal deficit present. Mental Status: He is alert and oriented to person, place, and time. Psychiatric: Behavior: Behavior normal. The patient has palpable bypass graft pulses bilaterally Arterial duplex on 11/15/2023 shows an RIMMA of 1.03 on the right and 0.75 on the left. Both bypasses are patent although the flow velocities on the left are on the low side. Additionally the left RIMMA has dropped since the previous exam where it measured 0.93. CTA with runoff on 12/06/2023 showed calcific plaque in the aortoiliac system with no obvious high-grade stenoses. Bilateral FEM TP trunk bypasses are also widely patent IMPRESSION/RECOMMENDATIONS: Problem List Items Addressed This Visit Circulatory 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, bilateral legs (HCC) - Primary Relevant Orders CBC auto differential Basic metabolic panel Type and Screen I discussed the testing with the patient and we both agree that since he has had a drop on the lefthe would prefer to proceed with arteriography to make sure there are not any lesions putting his bypass graft at risk. I think that is reasonable and so we will plan to go ahead and schedule him for an arteriogram. [employer] Phone: [phone] History and physical note* Ta Dover MD - 01/02/2024 8:00 AM EDT H&P reviewed. The patient was examined and there are no changes to the H&P. Source Note - Ta Dover MD - 12/11/2023 11:13 AM EDT HISTORY OF PRESENT ILLNESS: The patient is a 68 y.o. male who returns for follow-up of peripheral vascular disease. The patientstates that his legs really have not been bothering him and that he is able to ambulate fairly wellwith no significant claudication symptoms. He denies any new ulcers or rest pain from the last office visit. He is here to discuss his recent vascular testing. He has had previous bilateral femoral to T P trunk bypasses with in situ saphenous vein graft. 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 Authorizing Provider aspirin 81 MG EC tablet Take 81 mg by mouth daily. Historical Provider, atorvastatin (Lipitor) 80 MG tablet Take 80 mg by mouth daily. 12/11/22 Historical Provider, Cobalamin Combinations (Vitamin D70-Tonml Acid) 500-400 MCG tablet Take by mouth. Historical Provider, latanoprost (Xalatan) 0.005 % ophthalmic solution instill 1 (ONE) drop into both eyes every night 09/30/22 Historical Provider, losartan (Cozaar) 25 MG tablet Take 25 mg by mouth daily. 11/02/22 Historical Provider, omeprazole (PriLOSEC) [address] capsule Take 20 mg by mouth daily. 01/19/23 Historical Provider, polyethylene glycol, PEG, 3350 (Glycolax) 17 GM/SCOOP powder TAKE 17G BY MOUTH DAILY. DISSOLVE IN WATER OR JUICE 09/16/22 Historical Provider, Allergies: Patient has no known allergies. Social History Socioeconomic History Marital status: Spouse name: Not on file Number of children: Not on file Years of education: Not on file Highest education level: Not on file Occupational History Not on file Tobacco Use Smoking status: Former Current packs/day: 0.00 Types: Cigarettes Quit date: 02/2023 Years since quittin.8 Smokeless tobacco: Never Substance and Sexual Activity Alcohol use: No Drug use: Yes Types: Marijuana Sexual activity: Not on file Other Topics Concern Not on file Social History Narrative Not on file Social Determinants of Health Financial Resource Strain: Not on file Food Insecurity: Not on file Transportation Needs: Not on file Physical Activity: Not on file Stress: Not on file Social Connections: Not on file Intimate Partner Violence: Not on file Housing Stability: Not on file Family History Family History Problem Relation Name Age of Onset High Blood Pressure Brother Cancer Mother Cancer Brother Cancer Father Diabetes Father Review of Systems Constitutional: Positive for appetite change (no appetite). HENT: Negative. Eyes: Negative. Respiratory: Negative. Cardiovascular: Negative. Gastrointestinal: Positive for constipation. Endocrine: Negative. Genitourinary: Negative. Musculoskeletal: Positive for myalgias (L thigh area pain at times). Skin: Negative. Allergic/Immunologic: Negative. Neurological: Negative. Hematological: Negative. Psychiatric/Behavioral: Negative. LABS: Lab Results Component Value Date CREATININE 1.23 11/22/2023 No results found for: "WBC", "HGB", "HCT", "MCV", "PLT" No results found for: "INR", "PROTIME" No results found for: "VLDL" Physical Exam Constitutional: Appearance: Normal appearance. HENT: Head: Normocephalic and atraumatic. Nose: Nose normal. Mouth/Throat: Mouth: Mucous membranes are moist. Pharynx: Oropharynx is clear. Eyes: Extraocular Movements: Extraocular movements intact. Pupils: Pupils are equal, round, and reactive to light. Cardiovascular: Rate and Rhythm: Normal rate and regular rhythm. Pulses: Carotid pulses are 2+ on the right side and 2+ on the left side. Radial pulses are 2+ on the right side and 2+ on the left side. Femoral pulses are 2+ on the right side and 2+ on the left side. Popliteal pulses are 0 on the right side and 0 on the left side. Dorsalis pedis pulses are 2+ on the right side and 0 on the left side. Posterior tibial pulses are 2+ on the right side and 0 on the left side. Pulmonary: Effort: Pulmonary effort is normal. Breath sounds: Normal breath sounds. Abdominal: General: Abdomen is flat. Bowel sounds are normal. Palpations: Abdomen is soft. Musculoskeletal: General: Normal range of motion. Cervical back: Normal range of motion and neck supple. Skin: General: Skin is warm and dry. Neurological: General: No focal deficit present. Mental Status: He is alert and oriented to person, place, and time. Psychiatric: Behavior: Behavior normal. The patient has palpable bypass graft pulses bilaterally Arterial duplex on 11/15/2023 shows an RIMMA of 1.03 on the right and 0.75 on the left. Both bypasses are patent although the flow velocities on the left are on the low side. Additionally the left RIMMA has dropped since the previous exam where it measured 0.93. CTA with runoff on 12/06/2023 showed calcific plaque in the aortoiliac system with no obvious high-grade stenoses. Bilateral FEM TP trunk bypasses are also widely patent IMPRESSION/RECOMMENDATIONS: Problem List Items Addressed This Visit Circulatory 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, bilateral legs ([facility]) - Primary Relevant Orders CBC auto differential Basic metabolic panel Type and Screen I discussed the testing with the patient and we both agree that since he has had a drop on the lefthe would prefer to proceed with arteriography to make sure there are not any lesions putting his bypass graft at risk. I think that is reasonable and so we will plan to go ahead and schedule him for an arteriogram. documented in this [facility]06-24-2024 History and physical note* Ta Dover MD - 12/11/2023 11:13 AM EDT HISTORY OF PRESENT ILLNESS: The patient is a 68 y.o. male who returns for follow-up of peripheral vascular disease. The patientstates that his legs really have not been bothering him and that he is able to ambulate fairly wellwith no significant claudication symptoms. He denies any new ulcers or rest pain from the last office visit. He is here to discuss his recent vascular testing. He has had previous bilateral femoral to T P trunk bypasses with in situ saphenous vein graft. 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 Authorizing Provider aspirin 81 MG EC tablet Take 81 mg by mouth daily. Historical Provider, atorvastatin (Lipitor) 80 MG tablet Take 80 mg by mouth daily. 12/11/22 Historical Provider, Cobalamin Combinations (Vitamin H94-Ufeek Acid) 500-400 MCG tablet Take by mouth. Historical Provider, latanoprost (Xalatan) 0.005 % ophthalmic solution instill 1 (ONE) drop into both eyes every night 09/30/22 Historical Provider, losartan (Cozaar) 25 MG tablet Take 25 mg by mouth daily. 11/02/22 Historical Provider, omeprazole (PriLOSEC) [address] capsule Take 20 mg by mouth daily. 01/19/23 Historical Provider, polyethylene glycol, PEG, 3350 (Glycolax) 17 GM/SCOOP powder TAKE 17G BY MOUTH DAILY. DISSOLVE IN WATER OR JUICE 09/16/22 Historical Provider, Allergies: Patient has no known allergies. Social History Socioeconomic History Marital status: Spouse name: Not on file Number of children: Not on file Years of education: Not on file Highest education level: Not on file Occupational History Not on file Tobacco Use Smoking status: Former Current packs/day: 0.00 Types: Cigarettes Quit date: 02/2023 Years since quittin.8 Smokeless tobacco: Never Substance and Sexual Activity Alcohol use: No Drug use: Yes Types: Marijuana Sexual activity: Not on file Other Topics Concern Not on file Social History Narrative Not on file Social Determinants of Health Financial Resource Strain: Not on file Food Insecurity: Not on file Transportation Needs: Not on file Physical Activity: Not on file Stress: Not on file Social Connections: Not on file Intimate Partner Violence: Not on file Housing Stability: Not on file Family History Family History Problem Relation Name Age of Onset High Blood Pressure Brother Cancer Mother Cancer Brother Cancer Father Diabetes Father Review of Systems Constitutional: Positive for appetite change (no appetite). HENT: Negative. Eyes: Negative. Respiratory: Negative. Cardiovascular: Negative. Gastrointestinal: Positive for constipation. Endocrine: Negative. Genitourinary: Negative. Musculoskeletal: Positive for myalgias (L thigh area pain at times). Skin: Negative. Allergic/Immunologic: Negative. Neurological: Negative. Hematological: Negative. Psychiatric/Behavioral: Negative. LABS: Lab Results Component Value Date CREATININE 1.23 11/22/2023 No results found for: "WBC", "HGB", "HCT", "MCV", "PLT" No results found for: "INR", "PROTIME" No results found for: "VLDL" Physical Exam Constitutional: Appearance: Normal appearance. HENT: Head: Normocephalic and atraumatic. Nose: Nose normal. Mouth/Throat: Mouth: Mucous membranes are moist. Pharynx: Oropharynx is clear. Eyes: Extraocular Movements: Extraocular movements intact. Pupils: Pupils are equal, round, and reactive to light. Cardiovascular: Rate and Rhythm: Normal rate and regular rhythm. Pulses: Carotid pulses are 2+ on the right side and 2+ on the left side. Radial pulses are 2+ on the right side and 2+ on the left side. Femoral pulses are 2+ on the right side and 2+ on the left side. Popliteal pulses are 0 on the right side and 0 on the left side. Dorsalis pedis pulses are 2+ on the right side and 0 on the left side. Posterior tibial pulses are 2+ on the right side and 0 on the left side. Pulmonary: Effort: Pulmonary effort is normal. Breath sounds: Normal breath sounds. Abdominal: General: Abdomen is flat. Bowel sounds are normal. Palpations: Abdomen is soft. Musculoskeletal: General: Normal range of motion. Cervical back: Normal range of motion and neck supple. Skin: General: Skin is warm and dry. Neurological: General: No focal deficit present. Mental Status: He is alert and oriented to person, place, and time. Psychiatric: Behavior: Behavior normal. The patient has palpable bypass graft pulses bilaterally Arterial duplex on 11/15/2023 shows an RIMMA of 1.03 on the right and 0.75 on the left. Both bypasses are patent although the flow velocities on the left are on the low side. Additionally the left RIMMA has dropped since the previous exam where it measured 0.93. CTA with runoff on 12/06/2023 showed calcific plaque in the aortoiliac system with no obvious high-grade stenoses. Bilateral FEM TP trunk bypasses are also widely patent IMPRESSION/RECOMMENDATIONS: Problem List Items Addressed This Visit Circulatory 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, bilateral legs (HCC) - Primary Relevant Orders CBC auto differential Basic metabolic panel Type and Screen I discussed the testing with the patient and we both agree that since he has had a drop on the lefthe would prefer to proceed with arteriography to make sure there are not any lesions putting his bypass graft at risk. I think that is reasonable and so we will plan to go ahead and schedule him for an arteriogram. [id number] History and physical note* Ta Dovre MD - 12/11/2023 11:13 AM EDT HISTORY OF PRESENT ILLNESS: The patient is a 68 y.o. male who returns for follow-up of peripheral vascular disease. The patientstates that his legs really have not been bothering him and that he is able to ambulate fairly wellwith no significant claudication symptoms. He denies any new ulcers or rest pain from the last office visit. He is here to discuss his recent vascular testing. He has had previous bilateral femoral to T P trunk bypasses with in situ saphenous vein graft. 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 Authorizing Provider aspirin 81 MG EC tablet Take 81 mg by mouth daily. Historical Provider, atorvastatin (Lipitor) 80 MG tablet Take 80 mg by mouth daily. 12/11/22 Historical Provider, Cobalamin Combinations (Vitamin V20-Merkz Acid) 500-400 MCG tablet Take by mouth. Historical Provider, latanoprost (Xalatan) 0.005 % ophthalmic solution instill 1 (ONE) drop into both eyes every night 09/30/22 Historical Provider, losartan (Cozaar) 25 MG tablet Take 25 mg by mouth daily. 11/02/22 Historical Provider, omeprazole (PriLOSEC) [address] capsule Take 20 mg by mouth daily. 01/19/23 Historical Provider, polyethylene glycol, PEG, 3350 (Glycolax) 17 GM/SCOOP powder TAKE 17G BY MOUTH DAILY. DISSOLVE IN WATER OR JUICE 09/16/22 Historical Provider, Allergies: Patient has no known allergies. Social History Socioeconomic History Marital status: Spouse name: Not on file Number of children: Not on file Years of education: Not on file Highest education level: Not on file Occupational History Not on file Tobacco Use Smoking status: Former Current packs/day: 0.00 Types: Cigarettes Quit date: 02/2023 Years since quittin.8 Smokeless tobacco: Never Substance and Sexual Activity Alcohol use: No Drug use: Yes Types: Marijuana Sexual activity: Not on file Other Topics Concern Not on file Social History Narrative Not on file Social Determinants of Health Financial Resource Strain: Not on file Food Insecurity: Not on file Transportation Needs: Not on file Physical Activity: Not on file Stress: Not on file Social Connections: Not on file Intimate Partner Violence: Not on file Housing Stability: Not on file Family History Family History Problem Relation Name Age of Onset High Blood Pressure Brother Cancer Mother Cancer Brother Cancer Father Diabetes Father Review of Systems Constitutional: Positive for appetite change (no appetite). HENT: Negative. Eyes: Negative. Respiratory: Negative. Cardiovascular: Negative. Gastrointestinal: Positive for constipation. Endocrine: Negative. Genitourinary: Negative. Musculoskeletal: Positive for myalgias (L thigh area pain at times). Skin: Negative. Allergic/Immunologic: Negative. Neurological: Negative. Hematological: Negative. Psychiatric/Behavioral: Negative. LABS: Lab Results Component Value Date CREATININE 1.23 11/22/2023 No results found for: "WBC", "HGB", "HCT", "MCV", "PLT" No results found for: "INR", "PROTIME" No results found for: "VLDL" Physical Exam Constitutional: Appearance: Normal appearance. HENT: Head: Normocephalic and atraumatic. Nose: Nose normal. Mouth/Throat: Mouth: Mucous membranes are moist. Pharynx: Oropharynx is clear. Eyes: Extraocular Movements: Extraocular movements intact. Pupils: Pupils are equal, round, and reactive to light. Cardiovascular: Rate and Rhythm: Normal rate and regular rhythm. Pulses: Carotid pulses are 2+ on the right side and 2+ on the left side. Radial pulses are 2+ on the right side and 2+ on the left side. Femoral pulses are 2+ on the right side and 2+ on the left side. Popliteal pulses are 0 on the right side and 0 on the left side. Dorsalis pedis pulses are 2+ on the right side and 0 on the left side. Posterior tibial pulses are 2+ on the right side and 0 on the left side. Pulmonary: Effort: Pulmonary effort is normal. Breath sounds: Normal breath sounds. Abdominal: General: Abdomen is flat. Bowel sounds are normal. Palpations: Abdomen is soft. Musculoskeletal: General: Normal range of motion. Cervical back: Normal range of motion and neck supple. Skin: General: Skin is warm and dry. Neurological: General: No focal deficit present. Mental Status: He is alert and oriented to person, place, and time. Psychiatric: Behavior: Behavior normal. The patient has palpable bypass graft pulses bilaterally Arterial duplex on 11/15/2023 shows an RIMMA of 1.03 on the right and 0.75 on the left. Both bypasses are patent although the flow velocities on the left are on the low side. Additionally the left RIMMA has dropped since the previous exam where it measured 0.93. CTA with runoff on 12/06/2023 showed calcific plaque in the aortoiliac system with no obvious high-grade stenoses. Bilateral FEM TP trunk bypasses are also widely patent IMPRESSION/RECOMMENDATIONS: Problem List Items Addressed This Visit Circulatory 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, bilateral legs (HCC) - Primary Relevant Orders CBC auto differential Basic metabolic panel Type and Screen I discussed the testing with the patient and we both agree that since he has had a drop on the lefthe would prefer to proceed with arteriography to make sure there are not any lesions putting his bypass graft at risk. I think that is reasonable and so we will plan to go ahead and schedule him for an arteriogram. documented in this [facility]06-24-2024 History of Present illness Narrative* Ta Dover MD - 12/11/2023 10:45 AM EDT Vascular Surgery Office Visit Chief Complaint Patient presents with Follow-up Discuss CTA Aorta BL Iliofemoral 12/06/23 HISTORY OF PRESENT ILLNESS: The patient is a 68 y.o. male who returns for follow-up of peripheral vascular disease. The patientstates that his legs really have not been bothering him and that he is able to ambulate fairly wellwith no significant claudication symptoms. He denies any new ulcers or rest pain from the last office visit. He is here to discuss his recent vascular testing. He has had previous bilateral femoral to T P trunk bypasses with in situ saphenous vein graft. PastMedical History: Past Medical History: Diagnosis Date Cancer (CMS/HCC) (HCC) 11/2015 melanoma-back Hyperlipidemia Hypertension Peripheral vascular disease ([facility]) Past Surgical History: Past Surgical History: Procedure Laterality Date ARTERIAL ANEURYSM REPAIR Right 07/16/2013 rt femoral artery aneurysm FEMORAL-TIBIAL BYPASS GRAFT (HISTORICAL) Left 02/26/2014 Fem-TP Trunk ISS[facility]G ([facility]) FEMORAL-TIBIAL BYPASS GRAFT (HISTORICAL) Right 12/13/2012 Fem-TP Trunk ISSVG ([facility]) PROSTATECTOMY 2020 SKIN CANCER EXCISION 11/2015 Melanoma-back SKIN CANCER EXCISION 09/2022 chest Current Medications: Prior to Admission medications Medication Sig Start Date End Date Taking? Authorizing Provider aspirin 81 MG EC tablet Take 81 mg by mouth daily. Historical Provider, atorvastatin (Lipitor) 80 MG tablet Take 80 mg by mouth daily. 12/11/22 Historical Provider, Cobalamin Combinations (Vitamin A75-Okigz Acid) 500-400 MCG tablet Take by mouth. Historical Provider, latanoprost (Xalatan) 0.005 % ophthalmic solution instill 1 (ONE) drop into both eyes every night 09/30/22 Historical Provider, losartan (Cozaar) 25 MG tablet Take 25 mg by mouth daily. 11/02/22 Historical Provider, omeprazole (PriLOSEC) [address] capsule Take 20 mg by mouth daily. 01/19/23 Historical Provider, polyethylene glycol, PEG, 3350 (Glycolax) 17 GM/SCOOP powder TAKE 17G BY MOUTH DAILY. DISSOLVE IN WATER OR JUICE 09/16/22 Historical Provider, Allergies: Patient has no known allergies. Social History Socioeconomic History Marital status: Spouse name: Not on file Number of children: Not on file Years of education: Not on file Highest education level: Not on file Occupational History Not on file Tobacco Use Smoking status: Former Current packs/day: 0.00 Types: Cigarettes Quit date: 02/2023 Years since quittin.8 Smokeless tobacco: Never Substance and Sexual Activity Alcohol use: No Drug use: Yes Types: Marijuana Sexual activity: Not on file Other Topics Concern Not on file Social History Narrative Not on file Social Determinants of Health Financial Resource Strain: Not on file Food Insecurity: Not on file Transportation Needs: Not on file Physical Activity: Not on file Stress: Not on file Social Connections: Not on file Intimate Partner Violence: Not on file Housing Stability: Not on file Family History Problem Relation Name Age of Onset High Blood Pressure Brother Cancer Mother Cancer Brother Cancer Father Diabetes Father Review of Systems Constitutional: Positive for appetite change (no appetite). HENT: Negative. Eyes: Negative. Respiratory: Negative. Cardiovascular: Negative. Gastrointestinal: Positive for constipation. Endocrine: Negative. Genitourinary: Negative. Musculoskeletal: Positive for myalgias (L thigh area pain at times). Skin: Negative. Allergic/Immunologic: Negative. Neurological: Negative. Hematological: Negative. Psychiatric/Behavioral: Negative. LABS: Lab Results Component Value Date CREATININE 1.23 11/22/2023 No results found for: "WBC", "HGB", "HCT", "MCV", "PLT" No results found for: "INR", "PROTIME" No results found for: "VLDL" Physical Exam Constitutional: Appearance: Normal appearance. HENT: Head: Normocephalic and atraumatic. Nose: Nose normal. Mouth/Throat: Mouth: Mucous membranes are moist. Pharynx: Oropharynx is clear. Eyes: Extraocular Movements: Extraocular movements intact. Pupils: Pupils are equal, round, and reactive to light. Cardiovascular: Rate and Rhythm: Normal rate and regular rhythm. Pulses: Carotid pulses are 2+ on the right side and 2+ on the left side. Radial pulses are 2+ on the right side and 2+ on the left side. Femoral pulses are 2+ on the right side and 2+ on the left side. Popliteal pulses are 0 on the right side and 0 on the left side. Dorsalis pedis pulses are 2+ on the right side and 0 on the left side. Posterior tibial pulses are 2+ on the right side and 0 on the left side. Pulmonary: Effort: Pulmonary effort is normal. Breath sounds: Normal breath sounds. Abdominal: General: Abdomen is flat. Bowel sounds are normal. Palpations: Abdomen is soft. Musculoskeletal: General: Normal range of motion. Cervical back: Normal range of motion and neck supple. Skin: General: Skin is warm and dry. Neurological: General: No focal deficit present. Mental Status: He is alert and oriented to person, place, and time. Psychiatric: Behavior: Behavior normal. The patient has palpable bypass graft pulses bilaterally Arterial duplex on 11/15/2023 shows an RIMMA of 1.03 on the right and 0.75 on the left. Both bypasses are patent although the flow velocities on the left are on the low side. Additionally the left RIMMA has dropped since the previous exam where it measured 0.93. CTA with runoff on 12/06/2023 showed calcific plaque in the aortoiliac system with no obvious high-grade stenoses. Bilateral FEM TP trunk bypasses are also widely patent IMPRESSION/RECOMMENDATIONS: Problem List Items Addressed This Visit Circulatory 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, bilateral legs (HCC) - Primary Relevant Orders CBC auto differential Basic metabolic panel Type and Screen I discussed the testing with the patient and we both agree that since he has had a drop on the lefthe would prefer to proceed with arteriography to make sure there are not any lesions putting his bypass graft at risk. I think that is reasonable and so we will plan to go ahead and schedule him for an arteriogram. No follow-ups on file. . documented in this [facility]05-20-2024 Telephone encounter Note* Telephone Encounter - King Earl - 11/06/2023 11:36 AM EDT Patient's , Fouzia, called in to [facility] Scheduling to schedule the Vasc US ordered by Krystin Tejada PA-C. Patient is scheduled for the 11/14/23 at 3:20om at [facility]. Call back number, if necessary: [phone] [facility] [id number] Miscellaneous Notes* Telephone Encounter - King Earl - 11/06/2023 11:36 AM EDT Patient's , Fouzia, called in to [facility] Scheduling to schedule the Vasc US ordered by Krystin Tejada PA-C. Patient is scheduled for the 11/14/23 at 3:20om at [facility]. Call back number, if necessary: [phone] documented in this [place] [address]-12-2024 Telephone encounter Note* Telephone Encounter - Erin Nava - 09/29/2023 1:30 PM EDT Letter sent [id number] Miscellaneous Notes* Telephone Encounter - Erin Nava - 09/29/2023 1:30 PM EDT Letter sent * Telephone Encounter - Sherlyn Iqbal - 09/29/2023 1:20 PM EDT We have been unable to reach your patient to schedule their testing. Test Name: RIMMA 1st Attempt: lvm 09/28/23 2nd Attempt: Lvm 09/29/23 documented in this [place] [address]-12-2024 Telephone encounter Note* Telephone Encounter - Sherlyn Iqbal - 09/29/2023 1:20 PM EDT We have been unable to reach your patient to schedule their testing. Test Name: RIMMA 1st Attempt: lvm 09/28/23 2nd Attempt: Lvm 09/29/23 [facility] [id number] Evaluation + Plan noteExtracted from: Title:Clinical Document Author:KYLEE GABRIEL ate:07/26/23 [facility] HISTORY AN D PHYSICIAL CHIEF COMPLAINT: Colorectal cancer screening HISTORY OF PRESENT ILLNESS: Colorectal cancer screening, personal history of colon polyps REVIEW OF SYSTEMS: Constitutional: denies weight loss Cardiovascular:denies chest pain, palpitations Respiratory:denies shortness of breath Gastrointestinal:no abd pain Musculoskeletal: no arthralgias Skin: no rashes ACTIVE PROBLEMS: (35) Arthritis ([id number]) Arthropathy of joint of hand (1937980455) Benign essential hypertension (8499771) Chronic back pain (265034879) Chronic pain of right upper limb (7299937711) Constipation (12599442) COPD - Chronic obstructive pulmonary disease (024989877) Degeneration of lumbar intervertebral disc (74357043) Degenerative joint disease of hand (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 (6307021160) GERD (gastroesophageal reflux disease) (008440374) Glasses (0185539257) Glaucoma (29491826) High cholesterol (65934728) History of diverticulitis (3317155552) Hyperlipidemia (39237874) Impaired fasting glycemia (5020470525) Male stress incontinence (4059080575) 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 cT1c, GG2 (4/12, 10-45%, all on left) dx'd 10/2020. DxPSA=15.5. S/P RARP, BPLND 12/31/20. Final path - [id number] GG2 with BNI. 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 Weights display the last 5 within 7 days. Initial Wt: No Data Available Current Wt: No Data Available physical exam alert and oriented cardio; regular without murmur pulm; clear abd; soft, nontender LABS: No 36hr Lab Data DIAGNOSTICS: IMPRESSION: Colorectal cancer screening, personal history of colon polyps PLAN: Proceed with colonoscopy as discussed in the office Future Appointments Appointment Date:12/15/2023 08:30:00 AM Scheduled Provider: Location:[facility] Appointment Type: Nurse Lab Appointment Date:12/29/2023 02:00:00 PM Scheduled Provider:JESSICA STANFORD Location:[facility] Appointment Type: OV Future Scheduled Tests Laboratory* Prostate Specific Antigen 06/23/23 * Complete Blood Count 06/23/23 * Lipid Profile 09/01/22 * Lipid Profile 06/23/23 * Hepatitis C Antibody IgG 09/01/22 * Albumin/Creatinine Ratio, Random Urine 09/16/22 * Complete Metabolic Panel 06/23/23 Radiology* CT Low Dose Lung Cancer Screening (LDCT) 12/21/22 [facility] 02-07-2024 Hospital Discharge instructions Patient Education 07/26/2023 08:42:01 Monitored Anesthesia Care, Care After Monitored Anesthesia Care, Care After These instructions provide you with information about caring for yourself after your procedure. Your health care provider may also give you more specific instructions. Your treatment has been plannedaccording to current medical practices, but problems sometimes occur. Call your health care provider if you have any problems or questions after your procedure. What can I expect after the procedure? After your procedure, you may: Feel sleepy for several hours. Feel clumsy and have poor balance for several hours. Feel forgetful about what happened after the procedure. Have poor judgment for several hours. Feel nauseous or vomit. Have a sore throat if you had a breathing tube during the procedure. Follow these instructions at home: For at least 24 hours after the procedure: Have a responsible adult stay with you. It is important to have someone help care for you until youare awake and alert. Rest as needed. Do not: ?Participate in activities in which you could fall or become injured. ?Drive. ?Use heavy machinery. ?Drink alcohol. ?Take sleeping pills or medicines that cause drowsiness. ?Make important decisions or sign legal documents. ?Take care of children on your own. Eating and drinking Follow the diet that is recommended by your health care provider. If you vomit, drink water, juice, or soup when you can drink without vomiting. Make sure you have little or no nausea before eating solid foods. General instructions Take uesv-sdm-fammzno and prescription medicines only as told by your health care provider. If you have sleep apnea, surgery and certain medicines can increase your risk for breathing problems. Follow instructions from your health care provider about wearing your sleep device: ?Anytime you are sleeping, including during daytime naps. ?While taking prescription pain medicines, sleeping medicines, or medicines that make you drowsy. If you smoke, do not smoke without supervision. Keep all follow-up visits as told by your health care provider. This is important. Contact a health care provider if: You keep feeling nauseous or you keep vomiting. You feel light-headed. You develop a rash. You have a fever. Get help right away if: You have trouble breathing. Summary For several hours after your procedure, you may feel sleepy and have poor judgment. Have a responsible adult stay with you for at least 24 hours or until you are awake and alert. This information is not intended to replace advice given to you by your health care provider. Make sure you discuss any questions you have with your health care provider. Document Released: 09/25/2016 Document Revised: 09/03/2018 Document Reviewed: 09/25/2016 [email or web address] Patient Education 2020 [employer]. 07/26/2023 08:41:55 Colonoscopy, Adult, Care After Colonoscopy, Adult, Care After This sheet gives you information about how to care for yourself after your procedure. Your health care provider may also give you more specific instructions. If you have problems or questions, contact your health care provider. What can I expect after the procedure? After the procedure, it is common to have: A small amount of blood in your stool for 24 hours after the procedure. Some gas. Mild abdominal cramping or bloating. Follow these instructions at home: General instructions For the first 24 hours after the procedure: ?Do not drive or use machinery. ?Do not sign important documents. ?Do not drink alcohol. ?Do your regular daily activities at a slower pace than normal. ?Eat soft, rhxf-nu-dscqac foods. Take icmf-dzx-kqcglpf or prescription medicines only as told by your health care provider. Relieving cramping and bloating Try walking around when you have cramps or feel bloated. Apply heat to your abdomen as told by your health care provider. Use a heat source that your healthcare provider recommends, such as a moist heat pack or a heating pad. ?Place a towel between your skin and the heat source. ?Leave the heat on for 20 30 minutes. ?Remove the heat if your skin turns bright red. This is especially important if you are unable to feel pain, heat, or cold. You may have a greater risk of getting burned. Eating and drinking Drink enough fluid to keep your urine pale yellow. Resume your normal diet as instructed by your health care provider. Avoid heavy or fried foods thatare hard to digest. Avoid drinking alcohol for as long as instructed by your health care provider. Contact a health care provider if: You have blood in your stool 2 3 days after the procedure. Get help right away if: You have more than a small spotting of blood in your stool. You pass large blood clots in your stool. Your abdomen is swollen. You have nausea or vomiting. You have a fever. You have increasing abdominal pain that is not relieved with medicine. Summary After the procedure, it is common to have a small amount of blood in your stool. You may also have mild abdominal cramping and bloating. For the first 24 hours after the procedure, do not drive or use machinery, sign important documents, or drink alcohol. Contact your health care provider if you have a lot of blood in your stool, nausea or vomiting, a fever, or increased abdominal pain. This information is not intended to replace advice given to you by your health care provider. Make sure you discuss any questions you have with your health care provider. Document Released: 01/17/2005 Document Revised: 03/28/2018 Document Reviewed: 08/16/2016 [email or web address] Patient Education 2020 [employer]. 07/26/2023 08:41:52 Colon Polyps Colon Polyps Polyps are tissue growths inside the body. Polyps can grow in many places, including the large intestine (colon). A polyp may be a round bump or a mushroom-shaped growth. You could have one polyp or several. Most colon polyps are noncancerous (benign). However, some colon polyps can become cancerous over time. Finding and removing the polyps early can help prevent this. What are the causes? The exact cause of colon polyps is not known. What increases the risk? You are more likely to develop this condition if you: Have a family history of colon cancer or colon polyps. Are older than 50 or older than 45 if you are . Have inflammatory bowel disease, such as ulcerative colitis or Crohn's disease. Have certain hereditary conditions, such as: ?Familial adenomatous polyposis. ?Hanson syndrome. ?Turcot syndrome. ?Peutz Jeghers syndrome. Are overweight. Smoke cigarettes. Do not get enough exercise. Drink too much alcohol. Eat a diet that is high in fat and red meat and low in fiber. Had childhood cancer that was treated with abdominal radiation. What are the signs or symptoms? Most polyps do not cause symptoms. If you have symptoms, they may include: Blood coming from your rectum when having a bowel movement. Blood in your stool. The stool may look dark red or black. Abdominal pain. A change in bowel habits, such as constipation or diarrhea. How is this diagnosed? This condition is diagnosed with a colonoscopy. This is a procedure in which a lighted, flexible scope is inserted into the anus and then passed into the colon to examine the area. Polyps are sometimes found when a colonoscopy is done as part of routine cancer screening tests. How is this treated? Treatment for this condition involves removing any polyps that are found. Most polyps can be removed during a colonoscopy. Those polyps will then be tested for cancer. Additional treatment may be needed depending on the results of testing. Follow these instructions at home: Lifestyle Maintain a healthy weight, or lose weight if recommended by your health care provider. Exercise every day or as told by your health care provider. Do not use any products that contain nicotine or tobacco, such as cigarettes and e-cigarettes. If you need help quitting, ask your health care provider. If you drink alcohol, limit how much you have: ?0 1 drink a day for women. ? 0 2 drinks a day for men. Be aware of how much alcohol is in your drink. In the [place] one drink equals one 12 oz bottle of beer (355 mL), one 5 oz glass of wine (148 mL), or one 1 oz shot of hard liquor (44 mL). Eating and drinking Eat foods that are high in fiber, such as fruits, vegetables, and whole grains. Eat foods that are high in calcium and vitamin D, such as milk, cheese, yogurt, eggs, liver, fish, and broccoli. Limit foods that are high in fat, such as fried foods and desserts. Limit the amount of red meat and processed meat you eat, such as hot dogs, sausage, calvillo, and lunch meats. General instructions Keep all follow-up visits as told by your health care provider. This is important. ?This includes having regularly scheduled colonoscopies. ?Talk to your health care provider about when you need a colonoscopy. Contact a health care provider if: You have new or worsening bleeding during a bowel movement. You have new or increased blood in your stool. You have a change in bowel habits. You lose weight for no known reason. Summary Polyps are tissue growths inside the body. Polyps can grow in many places, including the colon. Most colon polyps are noncancerous (benign), but some can become cancerous over time. This condition is diagnosed with a colonoscopy. Treatment for this condition involves removing any polyps that are found. Most polyps can be removed during a colonoscopy. This information is not intended to replace advice given to you by your health care provider. Make sure you discuss any questions you have with your health care provider. Document Released: 03/01/2005 Document Revised: 09/20/2018 Document Reviewed: 09/20/2018 [email or web address] Patient Education 2020 [employer]. Follow Up Care 07/07/2023 12:40:24 With:JESSICA STANFORD Address: [address] [place] [phone] When: Unknown [facility] 02-07-2024 Note Discharge Instructions Thank you for allowing [facility] to assist you with your healthcare needs. The following is importantdischarge information regarding your hospital visit. Your Care Team JESSICA STANFORD What to do next Instructions From Your Doctor Colonoscopy 5 years Scheduled Follow-Up Appointments Appointment Type When With Where Contact InformationPC Nurse Lab 12/15/2023 08:30 AM EDT [address] [phone] PC OV 12/29/2023 02:00 PM EDT JESSICA STANFORD [address] [phone] Follow Up Appointments Follow Up with JESSICA STANFORD When Where: [address] [place] [phone] The Following Activity and Diet Have Been Ordered for You Discharge Activity - Ordered -- Driving Restricted, No driving until tomorrow, 07/26/23 7:23:00 EST Discharge Return to Work, School, or Sports - Ordered -- May return to: work, 07/26/23 7:23:00 EST Discharge Diet - Ordered -- Type of Diet: Regular Diet, 07/26/23 7:23:00 EST Allergies Lyrica (Unsteady on feet) Medications Please ask your primary doctor or pharmacist before taking any other medication not listed, including over the counter drugs, herbal medications, vitamins and or supplements as they may interact withyour home medications. What How Much When Why Instructions Last Dose Unchanged acetaminophen (acetaminophen 500 mg oral tablet) 2 tab(s) by mouth Three (3) times a day as needed for pain or fever Unchanged aspirin (aspirin 81 mg oral delayed release tablet) 1 tab(s) by mouth Once a day Unchanged atorvastatin (atorvastatin 80 mg oral tablet) 1 tab(s) by mouth Every day Unchanged latanoprost ophthalmic (latanoprost 0.005% ophthalmic solution) 1 Drops Both eyes Once a day (in the evening) Unchanged losartan (losartan 25 mg oral tablet) 1 tab(s) by mouth Once a day Hypertension Unchanged magnesium sulfate/ potass Cl/ sodium sulf (Sutab oral tablet) See instructions Tubular adenoma of colon take as directed by your provider at [facility] starting at 4 pm, the day before the colonoscopy Unchanged multivitamin (Vitamin B Complex oral capsule) by mouth Once a day Unchanged nitroGLYcerin 0.4 Milligram under the tongue Unchanged omeprazole (omeprazole 20 mg oral delayed release capsule) 1 cap by mouth Once a day GERD (gastroesophageal reflux disease) Unchanged polyethylene glycol 3350 with electrolytes (PEG-3350 with Electrolytes (Eqv-GoLYTELY) oral powder for reconstitution) See instructions Take as directed 1 day before colonoscopy. Follow instructions as provided by your GI provider at [facility]. Please take this list to your next doctor s visit. Bring all medications you take, including over the counter medications, herbals and other supplements with you to your doctor s visit. Patients and families are reminded to discard old lists and to update any records with all medication providers or retail pharmacies. Education Materials Monitored Anesthesia Care, Care After These instructions provide you with information about caring for yourself after your procedure. Your health care provider may also give you more specific instructions. Your treatment has been plannedaccording to current medical practices, but problems sometimes occur. Call your health care provider if you have any problems or questions after your procedure. What can I expect after the procedure? After your procedure, you may: Feel sleepy for several hours. Feel clumsy and have poor balance for several hours. Feel forgetful about what happened after the procedure. Have poor judgment for several hours. Feel nauseous or vomit. Have a sore throat if you had a breathing tube during the procedure. Follow these instructions at home: For at least 24 hours after the procedure: Have a responsible adult stay with you. It is important to have someone help care for you until youare awake and alert. Rest as needed. Do not: ? Participate in activities in which you could fall or become injured. ? Drive. ? Use heavy machinery. ? Drink alcohol. ? Take sleeping pills or medicines that cause drowsiness. ? Make important decisions or sign legal documents. ? Take care of children on your own. Eating and drinking Follow the diet that is recommended by your health care provider. If you vomit, drink water, juice, or soup when you can drink without vomiting. Make sure you have little or no nausea before eating solid foods. General instructions Take risq-njk-jbmximv and prescription medicines only as told by your health care provider. If you have sleep apnea, surgery and certain medicines can increase your risk for breathing problems. Follow instructions from your health care provider about wearing your sleep device: ? Anytime you are sleeping, including during daytime naps. ? While taking prescription pain medicines, sleeping medicines, or medicines that make you drowsy. If you smoke, do not smoke without supervision. Keep all follow-up visits as told by your health care provider. This is important. Contact a health care provider if: You keep feeling nauseous or you keep vomiting. You feel light-headed. You develop a rash. You have a fever. Get help right away if: You have trouble breathing. Summary For several hours after your procedure, you may feel sleepy and have poor judgment. Have a responsible adult stay with you for at least 24 hours or until you are awake and alert. This information is not intended to replace advice given to you by your health care provider. Make sure you discuss any questions you have with your health care provider. Document Released: 09/25/2016 Document Revised: 09/03/2018 Document Reviewed: 09/25/2016 [email or web address] Patient Education 2020 [employer]. Colonoscopy, Adult, Care After This sheet gives you information about how to care for yourself after your procedure. Your health care provider may also give you more specific instructions. If you have problems or questions, contact your health care provider. What can I expect after the procedure? After the procedure, it is common to have: A small amount of blood in your stool for 24 hours after the procedure. Some gas. Mild abdominal cramping or bloating. Follow these instructions at home: General instructions For the first 24 hours after the procedure: ? Do not drive or use machinery. ? Do not sign important documents. ? Do not drink alcohol. ? Do your regular daily activities at a slower pace than normal. ? Eat soft, qkyr-rk-drsuvb foods. Take qjos-jeo-zoepmah or prescription medicines only as told by your health care provider. Relieving cramping and bloating Try walking around when you have cramps or feel bloated. Apply heat to your abdomen as told by your health care provider. Use a heat source that your healthcare provider recommends, such as a moist heat pack or a heating pad. ? Place a towel between your skin and the heat source. ? Leave the heat on for 20 30 minutes. ? Remove the heat if your skin turns bright red. This is especially important if you are unable to feel pain, heat, or cold. You may have a greater risk of getting burned. Eating and drinking Drink enough fluid to keep your urine pale yellow. Resume your normal diet as instructed by your health care provider. Avoid heavy or fried foods thatare hard to digest. Avoid drinking alcohol for as long as instructed by your health care provider. Contact a health care provider if: You have blood in your stool 2 3 days after the procedure. Get help right away if: You have more than a small spotting of blood in your stool. You pass large blood clots in your stool. Your abdomen is swollen. You have nausea or vomiting. You have a fever. You have increasing abdominal pain that is not relieved with medicine. Summary After the procedure, it is common to have a small amount of blood in your stool. You may also have mild abdominal cramping and bloating. For the first 24 hours after the procedure, do not drive or use machinery, sign important documents, or drink alcohol. Contact your health care provider if you have a lot of blood in your stool, nausea or vomiting, a fever, or increased abdominal pain. This information is not intended to replace advice given to you by your health care provider. Make sure you discuss any questions you have with your health care provider. Document Released: 01/17/2005 Document Revised: 03/28/2018 Document Reviewed: 08/16/2016 [email or web address] Patient Education 2020 [employer]. Colon Polyps Polyps are tissue growths inside the body. Polyps can grow in many places, including the large intestine (colon). A polyp may be a round bump or a mushroom-shaped growth. You could have one polyp or several. Most colon polyps are noncancerous (benign). However, some colon polyps can become cancerous over time. Finding and removing the polyps early can help prevent this. What are the causes? The exact cause of colon polyps is not known. What increases the risk? You are more likely to develop this condition if you: Have a family history of colon cancer or colon polyps. Are older than 50 or older than 45 if you are . Have inflammatory bowel disease, such as ulcerative colitis or Crohn's disease. Have certain hereditary conditions, such as: ? Familial adenomatous polyposis. ? Hanson syndrome. ? Turcot syndrome. ? Peutz Jeghers syndrome. Are overweight. Smoke cigarettes. Do not get enough exercise. Drink too much alcohol. Eat a diet that is high in fat and red meat and low in fiber. Had childhood cancer that was treated with abdominal radiation. What are the signs or symptoms? Most polyps do not cause symptoms. If you have symptoms, they may include: Blood coming from your rectum when having a bowel movement. Blood in your stool. The stool may look dark red or black. Abdominal pain. A change in bowel habits, such as constipation or diarrhea. How is this diagnosed? This condition is diagnosed with a colonoscopy. This is a procedure in which a lighted, flexible scope is inserted into the anus and then passed into the colon to examine the area. Polyps are sometimes found when a colonoscopy is done as part of routine cancer screening tests. How is this treated? Treatment for this condition involves removing any polyps that are found. Most polyps can be removed during a colonoscopy. Those polyps will then be tested for cancer. Additional treatment may be needed depending on the results of testing. Follow these instructions at home: Lifestyle Maintain a healthy weight, or lose weight if recommended by your health care provider. Exercise every day or as told by your health care provider. Do not use any products that contain nicotine or tobacco, such as cigarettes and e-cigarettes. If you need help quitting, ask your health care provider. If you drink alcohol, limit how much you have: ? 0 1 drink a day for women. ? 0 2 drinks a day for men. Be aware of how much alcohol is in your drink. In the [place] one drink equals one 12 oz bottle of beer (355 mL), one 5 oz glass of wine (148 mL), or one 1 oz shot of hard liquor (44 mL). Eating and drinking Eat foods that are high in fiber, such as fruits, vegetables, and whole grains. Eat foods that are high in calcium and vitamin D, such as milk, cheese, yogurt, eggs, liver, fish, and broccoli. Limit foods that are high in fat, such as fried foods and desserts. Limit the amount of red meat and processed meat you eat, such as hot dogs, sausage, calvillo, and lunch meats. General instructions Keep all follow-up visits as told by your health care provider. This is important. ? This includes having regularly scheduled colonoscopies. ? Talk to your health care provider about when you need a colonoscopy. Contact a health care provider if: You have new or worsening bleeding during a bowel movement. You have new or increased blood in your stool. You have a change in bowel habits. You lose weight for no known reason. Summary Polyps are tissue growths inside the body. Polyps can grow in many places, including the colon. Most colon polyps are noncancerous (benign), but some can become cancerous over time. This condition is diagnosed with a colonoscopy. Treatment for this condition involves removing any polyps that are found. Most polyps can be removed during a colonoscopy. This information is not intended to replace advice given to you by your health care provider. Make sure you discuss any questions you have with your health care provider. Document Released: 03/01/2005 Document Revised: 09/20/2018 Document Reviewed: 09/20/2018 [employer] Patient Education 2020 [employer] Additional Information VACCINATE! IT SAVES LIVES! Members of the community who have not yet received the COVID-19 vaccine and would like to receive it can visit one of [facility] vaccine clinics. There are many vaccine clinic locations within the [facility]. For locations and available times, please visit [email or web address].[place].[email or web address] It is important to note that some COVID mobile vaccine clinics are held outdoors and may be canceled in rainy or stormy conditions. To learn more about pediatric vaccinations (ages 5-11), we invite you to visit the [facility] webpage. https://www.akdepicts.org/pages/[email or web address]-Lusnb-Xauppdokbcn-Dierzgrato-Idvzh-[email or web address] stions.htmlTo learn more about the COVID-19 vaccine, we invite you to visit the CDC website for a list of frequently asked questions.https://www.cdc.gov/coronavirus/2019-ncov/vaccines/faq.html [facility] Patient Portal Access Instructions: Stay connected with your healthcare team and access your personal medical information anytime with the [facility] Patient Portal. Please follow the directions below to create your [facility] account: 1.Access the email account you provided upon registration to the hospital/physician office.2.Look for an invitation email from [facility].3.Open the email and access the invitation link: AcceptInvitation to [facility].4.Fill in the required acosta to create your account. To access your account, visit [employer]OneChart. Click the blue button labeled "Access Patient Portal" and then log in with the username and password that you created in the steps above. You will be able to view your test results, lab results, a summary of your visits, upcoming appointments and more. There is also a convenient messaging option where you can send secure messages to your p rovider. In addition, you will have the ability to download any documents or summaries to your computer and/or send the information securely to a physician. Remember that your healthcare information is confidential, so carefully consider who you will allowto register on the [facility] Patient Portal for access to your information. You can also access the [facility] ([facility])Chart Patient Portal on the [facility] breonna. Simply click on "Patient Portal" and then log into your account. If you would like to receive a full copy of your medical records, please contact the [facility] Medical Records Department by calling [phone], Monday through Monday between 8 a.m. and 4:30 p.m. HOW TO SAFELY DISPOSE OF PRESCRIPTION MEDICATIONS Please use one of the following methods to safely dispose of your unused medications. 1.Use a drug disposal kit: the drug disposal pouch allows you to safely discard your old and unuseddrugs. Ask your nurse to give you one when you are discharged.2.Visit a local take-back location: Many local pharmacies and police departments have programs that collect old and unwanted prescriptiondrugs. Call your local pharmacy or go to http://MyShape.Boxer/9P1Sp7a to find one close to you.3.Make use of household items: Use cat litter or old coffee grounds to dispose medications if other options arenot available. Mix your drugs with these household products, seal them in an airtight container andthrow it into the garbage. Call [facility]: [phone] to be sure your drugs can be disposed of in this way. Some medicines may require a different approach.4.Never flush your medications down the toilet. IF YOU HAVE BEEN PRESCRIBED AN OPIOID FOR PAIN If you have been prescribed an opioid (such as hydrocodone, oxycodone or morphine), it is critical to understand the possible side effects and risks of opioid pain medications. Even when taken as directed, opioids can have several side effects including: Tolerance, meaning you might need to take more of a medication for the same pain relief. Nausea, vomiting and/or constipation. Sleepiness, dizziness, dry mouth, confusion, depression or itching. Physical dependence, meaning you have withdrawal symptoms when a medication is stopped, can develop within a few days. KNOW YOUR RESPONSIBILITIES It is important to know exactly how much and how often to take the opioid pain medications you are prescribed. Never take opioids in higher amounts or more often than prescribed. Do not combine opioids with alcohol or other drugs that cause drowsiness, such as benzodiazepines, also known as benzos, including diazepam and alprazolam, muscle relaxants or sleep aids. Never sell or share prescription opioids. This is illegal. Store opioids in a secure place and out of reach of others (including children, family, friends and visitors). The last page of this document has been signed and retained as a CHART COPY. Signatures Patient Education Materials Monitored Anesthesia Care, Care After Colonoscopy, Adult, Care After Colon Polyps Medication Leaflets My discharge plan and instructions have been reviewed and explained to me and I,LIDIA SINGH understand my current condition and have read and understand these discharge instructions. I have received a written copy of the plan/instructions. If I have questions, I am aware that I should contact my doctor. 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 Family's history: negative. Health Status Allergies: Allergic Reactions (Selected) Severity Not Documented Lyrica- Unsteady on feet., Allergies (1) ActiveReaction LyricaUnsteady on feet Current medications: (Selected) Inpatient Medications Ordered Lactated Ringers Infusion 1,000 mL: 20 mL/hr, Intravenous Prescriptions Prescribed PEG-3350 with Electrolytes (Eqv-GoLYTELY) oral powder for reconstitution: See Instructions, Take asdirected 1 day before colonoscopy. Follow instructions as provided by your GI provider at [facility]., 1 EA, 0 Refill(s) Sutab oral tablet: See Instructions, take as directed by your provider at [facility] starting at 4 pm, the day before the colonoscopy, 24 tab(s), 0 Refill(s) atorvastatin 80 mg oral tablet: 80 mg, 1 tab(s), Oral, Daily, 90 tab(s), 1 Refill(s) losartan 25 mg oral tablet: 25 mg, 1 tab(s), Oral, qDay, 90 tab(s), 3 Refill(s) omeprazole 20 mg oral delayed release capsule: 20 mg, 1 cap(s), Oral, qDay, 90 cap(s), 1 Refill(s) Documented Medications Documented Vitamin B Complex oral capsule: Oral, qDay, 0 Refill(s) acetaminophen 500 mg oral tablet: 1,000 mg, 2 tab(s), Oral, TID, PRN: pain or fever, 0 Refill(s) aspirin 81 mg oral delayed release tablet: 81 mg, 1 tab(s), Oral, qDay, 90 tab(s), 0 Refill(s) latanoprost 0.005% ophthalmic solution: 1 drop(s), Eyes, both, qPM, 0 Refill(s) nitroGLYcerin: 0.4 mg, Sublingual, 0 Refill(s), Medications (1) Active Scheduled: (0) Continuous: (1) Lactated Ringers 1,000 mL 1,000 mL, Intravenous, 20 mL/hr PRN: (0) Problem list: Medical Arthropathy of joint of hand / SNOMED CT 7559650585 / Confirmed Benign essential hypertension / SNOMED CT 6184026 / Confirmed Chronic back pain / SNOMED CT 074068660 / Confirmed Chronic pain of right upper limb / SNOMED CT 0018469152 / Confirmed Constipation / SNOMED CT 75342228 / Confirmed COPD - Chronic obstructive pulmonary disease / SNOMED CT 567888546 / Confirmed Degeneration of lumbar intervertebral disc / SNOMED CT 38723586 / Confirmed Degenerative joint disease of hand / SNOMED CT 20211947 / Confirmed Erectile dysfunction after radical prostatectomy / SNOMED CT 7714852502 / Confirmed GERD (gastroesophageal reflux disease) / SNOMED CT 680191505 / Confirmed Glaucoma / SNOMED CT 07210962 / Confirmed History of diverticulitis / SNOMED CT 7227286398 / Confirmed High cholesterol / SNOMED CT 58123174 / Confirmed Hyperlipidemia / SNOMED CT 21469758 / Confirmed Impaired fasting glycemia / SNOMED CT 5921566369 / Confirmed Male stress incontinence / SNOMED CT 9364305054 / Confirmed Prostate cancer. cT1c, GG2 (4/, 10-45%, all on left) dx'd 10/2020. DxPSA=15.5. S/P RARP, BPLND 12/31/20. Final path - [id number] GG2 with BNI. / SNOMED CT 6306679680 / Confirmed Middle insomnia / SNOMED CT 106931298 / Confirmed Nicotine dependence / SNOMED CT 83652408 / Confirmed Pain / SNOMED CT 27978373 / Confirmed Pain in right lower limb / SNOMED CT 5634053017 / Confirmed Patient encounter status / SNOMED CT 711895658 / Confirmed Peripheral arterial occlusive disease / SNOMED CT 7220014119 / Confirmed Peripheral neuropathy / SNOMED CT 3925787947 / Confirmed Peripheral vascular disease / SNOMED CT 0623964895 / Confirmed Preprocedural examination done / SNOMED CT 609521151501172 / Confirmed Rupture of tendon of biceps, long head / SNOMED CT 105402328 / Confirmed Snapping thumb syndrome / SNOMED CT 15979376 / Confirmed Spasm of back muscles / SNOMED CT 994054980 / Confirmed Tobacco user / SNOMED CT 315137189 / Confirmed Tubular adenoma of colon / SNOMED CT 8026026965 / Confirmed Urinary incontinence / SNOMED CT 2919004958 / Confirmed Wall of bladder thickening / SNOMED CT 730065244 / Confirmed, Active Problems (35) Arthritis Arthropathy of joint of hand Benign essential hypertension Chronic back pain Chronic pain of right upper limb Constipation COPD - Chronic obstructive pulmonary disease Degeneration of lumbar intervertebral disc Degenerative joint disease of hand Erectile dysfunction 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 cT1c, GG2 (09/28, 10-45%, all on left) dx'd 10/2020. DxPSA=15.5. S/P RARP, BPLND 12/31 Rupture of tendon of biceps, long head Snapping thumb syndrome Spasm of back muscles Tobacco user Tubular adenoma of colon Urinary incontinence Wall of bladder thickening Histories Past Medical History: Resolved Opioid withdrawal (915713900): Onset on 04/14/2005 at 50 years. Resolved. Skin cancer (melanoma) ([id number]): Resolved. Elevated PSA, less than 10 ng/ml. 39cc. PSAD=0.4. +FHX, brother, lethal. PSA - 9.9 (02/2020), 15.5 (10/2020). VIVIANA - non-nodular (10/2020). (3725539908): Resolved. Family History: Heart disease Brother Sister Diabetes mellitus type 2 Father Cancer of stomach Father Heart attack Sister Brother Malignant tumor of lung Mother Malignant tumor of prostate Brother Malignant neoplasm of bone Grandparent (Pat) Diabetes Grandparent (Pat) Father Stomach cancer 16-Dec-2015 02:38:43<$> Father Prostate cancer Brother Procedure history: Skin biopsy ([id number]) on 06/21/2023 at 68 Years. Comments: 06/23/2023 15:36 Pattie Ramos LPN [facility] [place]-forehead CT of lungs (528451687) in the month of 12/2022 at 67 Years. Comments: 02/23/2023 13:51 Pattie Greenwood LPN 4mm nodule is now 6 mm, repeat i 6 months Robotic assisted radical postatectomy (769942215) on 12/31/2020 at 65 Years. TRUS with prostate biopsy ([id number]) on 11/09/2020 at 65 Years. Colonoscopy and biopsy of colon (7926664584) on 03/15/2018 at 62 Years. Eye examination (17571402) on 10/19/2017 at 62 Years. Comments: 02/27/2020 16:35 Pattie Greenwood LPN [facility] Glaucoma screening (427296848) on 10/19/2017 at 62 Years. Comments: 02/27/2020 16:36 Pattie Greenwood LPN [facility] Bypass graft (86918590) in 2013 at 59 Years. Comments: 12/29/2020 15:56 Jocelin Payne RN left leg only 08/02/2017 12:34 ZOYA Shell RN both legs Right leg sx, bypass (59607936) in the month of 11/2012 at 57 Years. Comments: 12/29/2020 14:26 Jocelin Payne RN right leg bypass Laminectomy (1455734295) in 2010 at 56 Years. Laminectomy (2732517518) in 2008 at 54 Years. Colonoscopy (procedure) (390866124) on 12/14/2006 at 51 Years. Screening colonoscopy (procedure) (9611109015) in 2005 at 50 Years. Colectomy (23336438) in 2004 at 50 Years. Excision of melanoma (094233173). Tonsillectomy (537877197). Carpal tunnel syndrome of left wrist (137520541939195). Carpal tunnel syndrome of right wrist (713703812451025). Bypass graft, with vein; femoral-anterior tibial, posterior tibial, peroneal artery or other distalvessels (81858). Neuroplasty and/or transposition; median nerve at carpal tunnel (60903). Social History Social & Psychosocial Habits Alcohol 4Risk Assessment: Denies Alcohol Use 07/05/2023 Use: Never Substance Abuse 4Risk Assessment: Denies Substance Abuse 07/05/2023 Use: Opiod addiction detox 03/22-03/25/18 [facility] Tobacco 07/05/2023 Tobacco Use: Former smoker, quit more Type: Cigarettes Tobacco use per day: 20 Started at age: 12 Years Smoking Cessation Information Instructed to not smoke d Comment: Quit 03/03/2023 - 06/23/2023 15:37 - Pattie Mccormack LPN Home/Environment 07/05/2023 Living situation: Home/Independent Primary Bath Mixer: Self Current Home Treatments None Special Services and Community Resources None Marital Status of Patient if Patient Independent Adult: Nutrition/Health 07/05/2023 Type of diet: Regular Appetite Good Eating Difficulties None, upper dentures Caffeine intake amount: One coffee daily, occ pop . Physical Examination Vital Signs 07/26/2023 7:29 EST Temperature Temporal Artery 36.7 DegC Apical Heart Rate 61 bpm Respiratory Rate 14 br/min Systolic Blood Pressure Non-Invasive 155 mmHg HI Diastolic Blood Pressure Non-Invasive 69 mmHg Vital Signs(last 24 hrs) Last Charted SBPH 155mmHg (JUL 26 07:29) DBP69 mmHg (JUL 26 07:29) BMI25.96 (JUL 26 07:40) Measurements from flowsheet : Measurements 07/26/2023 7:40 EST Height 157.5 cm Admission Weight 64.4 kg [place] Body Weight 54.62 kg BSA Admission 1.65 Body Mass Index 25.96 kg/m2 07/26/2023 7:29 EST Height 157.5 cm Admission Weight 64.4 kg [place] Body Weight 54.62 kg Admission Body Mass Index 25.96 m2 Pain assessment: Pain Assessment 07/26/2023 7:29 EST Primary Pain Intensity 0 Pain Scale Type 0-10 Pain scale . General: Alert and oriented. Airway: Normal temporomandibular joint mobility. Mallampati classification: II (soft palate, fauces, uvula visible). Dentition Evaluation: Dentures, partial plate. Respiratory: Lungs are clear to auscultation, Respirations are non-labored. Cardiovascular: Normal rate, Regular rhythm. Neurologic: Alert, Oriented. Review / Management Results review: No qualifying data available , Lab results 07/26/2023 7:47 EST Lactated Ringers Injection Begin Bag 1,000 mL mL 07/26/2023 7:44 EST Continuous IV Infusions LR Forearm Right 07/26/2023 22 gauge Peripheral IV Activity: Insert new site Peripheral IV Dressing Condition: Clean, Dry, Intact Peripheral IV Dressing Activity: Applied, Transparent dressing Peripheral IV Line Status/Patency: Continuous infusion Peripheral IV Line Care: Secured with tape Peripheral IV Site Condition: No complications Peripheral IV Number of Attempts: 1 07/26/2023 7:40 EST Designated Person #1 We May Share GANESH DINERO [id number] Designated Person #1 Relationship Spouse Height 157.5 cm Admission Weight 64.4 kg [place] Body Weight 54.62 kg BSA Admission 1.65 Body Mass Index 25.96 kg/m2 Status N/A Sensory Deficits None Infectious Disease Symptoms Patient states no symptoms Infectious Disease Recent Exposure No Alcohol and Drug Use No Employee of Institutional Living No Health Care Employee No History of Exposure to TB No History of Positive Chest X-Ray for TB No History of Positive TB Skin Test No Homeless No Known Immunosuppression No Recent Immigrant No Resident of Institutional Living No Bloody Sputum No Fatigue No Fever No Loss of Appetite No Night Sweats No Persistent Cough > 3 Weeks No Weight Loss No Barriers to Learning None evident Teaching Method Explanation, Printed materials Preferred Spoken Language Macedonian Preferred Written Language Macedonian Information Given by Patient Patient's Current Physicians Patient's Current Physicians Discharge To, Anticipated Home with family care Prev Test Positive/Diagnosis w/COVID-19 Yes Previous COVID-19 Positive Date 05/2023 Current Quarantine/Isolated any Illness No Any Contact with Sick Animals/Birds No Traveled Anywhere in Last 30 Days No N/A Personal Devices, Patient Valuables Dentures, upper, Glasses Admission Note-Nursing Procedure/Therapy Intake 07/26/2023 7:37 EST IV Present Present Allergies Yes Anesthesia Extension Set Applied Yes Bed Bug Exterminator On Yes Colon Prep Results Excellent Consent Form Signed Yes Patient Dressed In Hospital gown Pre-op Preparation Dentures not removed, Undergarments removed History & Physical Update On Chart Yes History & Physical On Chart Yes Obstructive Sleep Apnea Assess Completed No Belongings At Bedside Transferred with patient Personal Home Medications Received No home medications were brought in Belongings Sent Home None Belongings to Security/Secured in Dept None NPO Status Maintained Allergy Band on and Verified Yes Patient ID Band on and Verified Yes Implants Verified Yes Pacemaker/AICD Verified Yes Site Verified by Patient/Family Yes Anesthesia Consent Signed Yes Blood Consent Signed No Last Fluid Intake 07/26/2023 3:00 Last Food Intake 07/26/2023 23:00 Last Void 07/26/2023 7:00 07/26/2023 7:29 EST Height 157.5 cm Admission Weight 64.4 kg [place] Body Weight 54.62 kg Admission Body Mass Index 25.96 m2 Temperature Temporal Artery 36.7 DegC Apical Heart Rate 61 bpm Respiratory Rate 14 br/min Systolic Blood Pressure Non-Invasive 155 mmHg HI Diastolic Blood Pressure Non-Invasive 69 mmHg Primary Pain Intensity 0 Pain Scale Type 0-10 Pain scale Heart Rhythm Regular Respirations Unlabored All Lobes Breath Sounds Clear Oxygen Therapy Room air Oxygen Saturation 97 % Abdomen Description Non-distended, Rounded Bowel Sounds All Quadrants Present Urinary Elimination Incontinence Skin Temperature Warm Skin Description [place], Dry Skin Integrity Intact Mucous Membrane Color [place] Characteristics of Speech Clear Level of Consciousness Alert Strength All Extremities Strong Affect/Behavior Appropriate, Calm, Cooperative Orientation Oriented x 4 Patient Identified Identification band, Verbal Arrival Mode Ambulatory Lynne Motor (2) Moves 4 extremities voluntarily or on command Lynne Respirations (2) Spontaneous respiration without support, RR > 10 Lynne Blood Pressure (2) BP 20% above or below preanesthetic level Lynne Pulse (2) Pulse 20% above or below preanesthetic level Lynne Oxygen Saturation (2) 94% or more Lynne Level of Consciousness (2) Fully awake Lynne III Score 12 Orientation Assessment Oriented x 4 Assistive Device None Standard Safety ID band on, Allergy Band on, Call device within reach, Bed in low position, Wheels locked 07/26/2023 7:07 [facility] History and Physical . Assessment and Plan [place] Society of Anesthesiologists (ASA) physical status classification: Class III. Anesthetic Preoperative Plan Anesthetic technique: MAC. Postoperative pain management: Per surgeon. Risks discussed: nausea, vomiting, hypotension, allergic reaction, serious complications. Informed consent: signed by patient. Digitally Signed by ALEXANDRO VICTOR on 07/26/2023 08:17 AM [facility]02-07-2024 Note [place] ADMISSION HISTORY AND PHYSICIAL CHIEF COMPLAINT: Colorectal cancer screening HISTORY OF PRESENT ILLNESS: Colorectal cancer screening, personal history of colon polyps REVIEW OF SYSTEMS: Constitutional: denies weight loss Cardiovascular:denies chest pain, palpitations Respiratory:denies shortness of breath Gastrointestinal:no abd pain Musculoskeletal: no arthralgias Skin: no rashes ACTIVE PROBLEMS: (35) Arthritis (9449684) Arthropathy of joint of hand (2555661081) Benign essential hypertension (2919683) Chronic back pain (745526285) Chronic pain of right upper limb (1246234949) Constipation (60598947) COPD - Chronic obstructive pulmonary disease (722443303) Degeneration of lumbar intervertebral disc (14144063) Degenerative joint disease of hand (50194807) Erectile dysfunction after radical prostatectomy (1040335833) GERD (gastroesophageal reflux disease) (993232288) Glasses (7090385598) Glaucoma (82134206) High cholesterol (62525570) History of diverticulitis (8089140170) Hyperlipidemia (01733669) Impaired fasting glycemia (8587709474) Male stress incontinence (7112885150) Middle insomnia (464725434) Nicotine dependence (14430667) Pain (31510835) Pain in right lower limb (8356383931) Patient encounter status (393624270) Peripheral arterial occlusive disease (4472705123) Peripheral neuropathy (3460100613) Peripheral vascular disease (3578982978) Preprocedural examination done (007621202077813) Prostate cancer. cT1c, GG2 (09/28, 10-45%, all on left) dx'd 10/2020. DxPSA=15.5. S/P RARP, BPLND 12/31/20. Final path - [id number] GG2 with BNI. (3554398114) Rupture of tendon of biceps, long head (646887187) Snapping thumb syndrome (97409991) Spasm of back muscles (760581667) Tobacco user (676020479) Tubular adenoma of colon (6688822620) Urinary incontinence (4717276843) Wall of bladder thickening (562984373) MEDICATIONS: Active Inpt Meds: None Active PRN Meds: None One Time Meds: None Active IV Meds: None ALLERGIES: (1) Lyrica FAMILY HISTORY: SOCIAL HISTORY: PHYSICAL EXAM: VITALS: No Data Available 24 Hr Tmax: No Data Available 36 Hr Tmax: No Data Available Vital Signs are the last 5 in the past 48 hours. Weights display the last 5 within 7 days. Initial Wt: No Data Available Current Wt: No Data Available physical exam alert and oriented cardio; regular without murmur pulm; clear abd; soft, nontender LABS: No 36hr Lab Data DIAGNOSTICS: IMPRESSION: Colorectal cancer screening, personal history of colon polyps PLAN: Proceed with colonoscopy as discussed in the office Digitally Signed by KYLEE GABRIEL DO on 07/26/2023 07:08 AM [facility]09-26-2023 History of Present illness Narrative * Brittany Alaniz, RT(R) - 03/14/2023 4:20 PM EDT Radiology Service Progress Note PATIENT NAME: Lidia Singh DATE OF SERVICE: March 14, 2023 TIME: 4:15 PM PATIENT IDENTITY VERIFICATION COMPLETED USING TWO (2) IDENTIFIERS: Name and Date of confirmedby patient verbally. FALL SCREENING: Has the patient had 2 falls in the last year or 1 fall with injury or currently using an Ambulatory Assistive Device (Walker, Cane, Wheelchair, Crutches, etc.)? No PATIENT GENDER DATA: Male PATIENT RELEVANT IMPLANT DATA REVIEWED: Not Applicable RADIOLOGY DEPARTMENT: General X-ray: Exam(s) Completed: Spine X-Ray(s): Lumbar AP / LAT / L5-S1 PERIPHERAL IV DATA: Not applicable SIGNED BY: RT Eligio(R) March 14, 2023 4:15 PM [facility] Discharge instructions Patient Education 02/12/2023 13:42:37 Back Spasm, No Trauma Back Spasm (No Trauma) Spasm of the back muscles can occur after a sudden forceful twisting or bending such as in a car accident. A spasm can also happen after a simple awkward movement, or after lifting something heavy with poor body positioning. In any case, muscle spasm adds to the pain. Sleeping in an awkward position or on a poor quality mattress can also cause this. Some people respond to emotional stress by tensing the muscles of their back. Pain that continues may need further assessment or other types of treatment such as physical therapy. You don't always need X-rays for the first assessment of back pain, unless you had a physical injury such as from a car accident or fall. If your pain continues and doesn't respond to medical treatment, X-rays and other tests may then be done. Home care As soon as possible, start sitting or walking again. This will help prevent problems from a long bed rest. These problems include muscle weakness, worsening back stiffness and pain, and blood clots in the legs. When in bed, try to find a position of comfort. A firm mattress is best. Try lying flat on your back with pillows under your knees. You can also try lying on your side with your knees bent up toward your chest and a pillow between your knees. Don't sit for long periods. Also limit car rides and travel. This puts more stress on the lower back than standing or walking. During the first 24 to 72 hours after an injury or flare-up, put an ice pack on the painful area for 20 minutes, then remove it for 20 minutes. Do this over a period of 60 to 90 minutes, or several times a day. This will reduce swelling and pain. Always wrap ice packs in a thin towel. You can start with ice, then switch to heat. Heat from a hot shower, hot bath, or heating pad reduces pain and works well for muscle spasms. Put heat on the painful area for 20 minutes, then remove it for 20 minutes. Do this over a period of 60 to 90 minutes, or several times a day. Don't sleep on a heating pad. It can burn or damage skin. Alternate using ice and heat. Be aware of safe lifting methods. don't lift anything over 15 pounds until all the pain is gone. Gentle stretching will help your back heal faster. Do this simple routine 2 to 3 times a day until your back is feeling better. Lie on your back with your knees bent and both feet on the ground. Slowly raise your left knee to your chest as you flatten your lower back against the floor. Hold for 20 to 30 seconds. Relax and repeat the exercise with your right knee. Do 2 to 3 of these exercises for each leg. Repeat, hugging both knees to your chest at the same time. Don't bounce, but use a gentle pull. Medicines Talk with your doctor before using medicine, especially if you have other medical problems or are taking other medicines. You may use nmaz-xuf-yablopk medicines such as acetaminophen, ibuprofen, or naprosyn to control pain, unless your healthcare provider prescribed another pain medicine. Talk with your healthcare provider if you have a chronic condition such as diabetes, liver or kidney disease, stomach ulcer, or digestive bleeding, or are taking blood thinners. Be careful if you are given prescription pain medicine, opioids, or medicine for muscle spasm. Theycan cause drowsiness, and affect your coordination, reflexes, and judgment. Don't drive or operate heavy machinery when taking these medicines. Take pain medicine only as prescribed by your healthcare provider. Follow-up care Follow up with your doctor, or as advised. You may need physical therapy or more tests. If X-rays were taken, they may be reviewed by a radiologist. You will be told of any new findings that may affect your care. Call Call if any of these occur: Trouble breathing Confusion Drowsiness or trouble awakening Fainting or loss of consciousness Rapid or very slow heart rate Loss of bowel or bladder control When to seek medical advice Call your healthcare provider right away if any of these occur: Pain becomes worse or spreads to your legs Weakness or numbness in one or both legs Numbness in the groin or genital area Fever of 100.4 F (38 C) or higher , or as directed by your healthcare provider Chills Burning or pain when passing urine [id number] [employer]. [address] [place] [address]. All rights reserved. This information is not intended as a substitute for professional medical care. Always follow yourhealthcare professional's instructions. 02/12/2023 13:42:30 Back Pain (Acute or Chronic) Back Pain (Acute or Chronic) Back pain is one of the most common problems. The good news is that most people feel better in 1 to2 weeks, and most of the rest in 1 to 2 months. Most people can remain active. People who have pain describe it differently not everyone is the same. The pain can be sharp, stabbing, shooting, aching, cramping or burning. Movement, standing, bending, lifting, sitting, or walking may worsen pain. It can be localized to one spot or area, or it can be more generalized. It can spread or radiate upwards, to the front, or go down your arms or legs (sciatica). It can cause muscle spasm. Most of the time, mechanical problems with the muscles or spine cause the pain. Mechanical problemsare usually caused by an injury to the muscles or ligaments. While illness can cause back pain, it is usually not caused by a serious illness. Mechanical problems include: Physical activity such as sports, exercise, work, or normal activity Overexertion, lifting, pushing, pulling incorrectly or too aggressively Sudden twisting, bending, or stretching from an accident, or accidental movement Poor posture Stretching or moving wrong, without noticing pain at the time Poor coordination, lack of regular exercise (check with your doctor about this) Spinal disc disease or arthritis Stress Pain can also be related to , or illness like appendicitis, bladder or kidney infections, pelvic infections, and many other things. Acute back pain usually gets better in 1 to 2 weeks. Back pain related to disk disease, arthritis in the spinal joints or spinal stenosis (narrowing of the spinal canal) can become chronic and last for months or years. Unless you had a physical injury (for example, a car accident or fall) X-rays are usually not needed for the initial evaluation of back pain. If pain continues and does not respond to medical treatment, X-rays and other tests may be needed. Home care Try these home care recommendations: When in bed, try to find a position of comfort. A firm mattress is best. Try lying flat on your back with pillows under your knees. You can also try lying on your side with your knees bent up towardsyour chest and a pillow between your knees. At first, do not try to stretch out the sore spots. If there is a strain, it is not like the good soreness you get after exercising without an injury. In this case, stretching may make it worse. Don't sit for long periods, as in a long car ride or during other travel. This puts more stress on the lower back than standing or walking. During the first 24 to 72 hours after an acute injury or flare up of chronic back pain, apply an ice pack to the painful area for 20 minutes and then remove it for 20 minutes. Do this over a period of 60 to 90 minutes or several times a day. This will reduce swelling and pain. Wrap the ice pack in a thin towel or plastic to protect your skin. You can start with ice, then switch to heat. Heat (hot shower, hot bath, or heating pad) reduces pain and works well for muscle spasms. Heat can be applied to the painful area for 20 minutes then remove it for 20 minutes. Do this over a period of 60 to 90 minutes or several times a day. Do not sleep on a heating pad. It can lead to skin sheldon or tissue damage. You can alternate ice and heat therapy. Talk with your doctor about the best treatment for your back pain. Therapeutic massage can help relax the back muscles without stretching them. Be aware of safe lifting methods and do not lift anything without stretching first. Medicines Talk to your doctor before using medicine, especially if you have other medical problems or are taking other medicines. You may use clcw-txr-ikjolqx medicine as directed on the bottle to control pain, unless another pain medicine was prescribed. If you have chronic conditions like diabetes, liver or kidney disease, stomach ulcers, or gastrointestinal bleeding, or are taking blood thinners, talk to your doctor beforetaking any medicine. Be careful if you are given a prescription medicines, narcotics, or medicine for muscle spasms. They can cause drowsiness, affect your coordination, reflexes, and judgement. Do not drive or operate heavy machinery. Follow-up care Follow up with your healthcare provider, or as advised. A radiologist will review any X-rays that were taken. Your provide will notify you of any new findings that may affect your care. Call 911 Call 911 if any of the following occur: Trouble breathing Confusion Very drowsy or trouble awakening Fainting or loss of consciousness Rapid or very slow heart rate Loss of bowel or bladder control When to seek medical advice Call your healthcare provider right away if any of these occur: Pain becomes worse or spreads to your legs Weakness or numbness in one or both legs Numbness in the groin or genital area [id number] [employer]. [address] [place] [address]. All rights reserved. This information is not intended as a substitute for professional medical care. Always follow yourhealthcare professional's instructions. 02/12/2023 13:42:19 Hypertension, Established Established High Blood Pressure High blood pressure (hypertension) is a chronic disease. Often, healthcare providers don t know what causes it. But it can be caused by certain health conditions and medicines. If you have high blood pressure, you may not have any symptoms. If you do have symptoms, they may include headache, dizziness, changes in your vision, chest pain, and shortness of breath. But even without symptoms, high blood pressure that s not treated raises your risk for heart attack, heart failure, and stroke. High blood pressure is a serious health risk and shouldn t be ignored. Blood pressure measurements are given as 2 numbers. Systolic blood pressure is the upper number. This is the pressure when the heart contracts. Diastolic blood pressure is the lower number. This is the pressure when the heart relaxes between beats. You will see your blood pressure readings written together. For example, a person with a systolic pressure of 118 and a diastolic pressure of 78 will have 118/78 written in the medical record. Blood pressure is categorized as normal, elevated, or stage 1 or stage 2 high blood pressure: Normal blood pressure is systolic of less than 120 and diastolic of less than 80 (120/80) Elevated blood pressure is systolic of 120 to 129 and diastolic less than 80 Stage 1 high blood pressure is systolic is 130 to 139 or diastolic between 80 to 89 Stage 2 high blood pressure is when systolic is 140 or higher or the diastolic is 90 or higher Home care If you have high blood pressure, follow these home care guidelines to help lower your blood pressure. If you are taking medicines for high blood pressure, these methods may reduce or end your need for medicines in the future. Start a weight-loss program if you are overweight. Cut back on how much salt you get in your diet. Here s how to do this: oDon t eat foods that have a lot of salt. These include olives, pickles, smoked meats, and salted potato chips. oDon t add salt to your food at the table. oUse only small amounts of salt when cooking. Start an exercise program. Talk with your healthcare provider about the type of exercise program that would be best for you. It doesn't have to be hard. Even brisk walking for 20 minutes 3 times a week is a good form of exercise. Don t take medicines that stimulate the heart. This includes many qlnc-xkm-cdjsdnf cold and sinus decongestant pills and sprays, as well as diet pills. Check the warnings about high blood pressure onthe label. Before buying any xwxe-jna-gxrhnon medicines or supplements, always ask the pharmacist about the product's potential interaction with your high blood pressure and your high blood pressure medicines. Stimulants such as amphetamine or cocaine could be deadly for someone with high blood pressure. Never take these. Limit how much caffeine you get in your diet. Switch to caffeine-free products. Stop smoking. If you are a long-time smoker, this can be hard. Talk to your healthcare provider about medicines and nicotine replacement options to help you. Also, enroll in a stop-smoking program tomake it more likely that you will quit for good. Learn how to handle stress. This is an important part of any program to lower blood pressure. Learnabout relaxation methods like meditation, yoga, or biofeedback. If your provider prescribed medicines, take them exactly as directed. Missing doses may cause your blood pressure get out of control. If you miss a dose or doses, check with your healthcare provider or pharmacist about what to do. Consider buying an automatic blood pressure machine to check your blood pressure at home. Ask your provider for a recommendation. You can get one of these at most pharmacies. The [employer] recommends the following guidelines for home blood pressure monitoring: Don't smoke or drink coffee for 30 minutes before taking your blood pressure. Go to the bathroom before the test. Relax for 5 minutes before taking the measurement. Sit with your back supported (don't sit on a couch or soft chair); keep your feet on the floor uncrossed. Place your arm on a solid flat surface (like a table) with the upper part of the arm at heartlevel. Place the middle of the cuff directly above the bend of the elbow. Check the monitor's instruction manual for an illustration. Take multiple readings. When you measure, take 2 to 3 readings one minute apart and record all of the results. Take your blood pressure at the same time every day, or as your healthcare provider recommends. Record the date, time, and blood pressure reading. Take the record with you to your next medical appointment. If your blood pressure monitor has a built-in memory, simply take the monitor with you to your next appointment. Call your provider if you have several high readings. Don't be frightened by a single high blood pressure reading, but if you get several high readings, check in with your healthcare provider. Note: When blood pressure reaches a systolic (top number) of 180 or higher OR diastolic (bottom number) of 110 or higher, seek emergency medical treatment. Follow-up care You will need to see your healthcare provider regularly. This is to check your blood pressure and to make changes to your medicines. Make a follow-up appointment as directed. Bring the record of yourhome blood pressure readings to the appointment. When to seek medical advice Call your healthcare provider right away if any of these occur: Blood pressure reaches a systolic (upper number) of 180 or higher OR a diastolic (bottom number) of110 or higher Chest pain or shortness of breath Severe headache Throbbing or rushing sound in the ears Nosebleed Sudden severe pain in your belly (abdomen) Extreme drowsiness, confusion, or fainting Dizziness or spinning sensation (vertigo) Weakness of an arm or leg or one side of the face You have problems speaking or seeing [id number] [employer]. [address] [place] [address], [place] [address]. All rights reserved. This information is not intended as a substitute for professional medical care. Always follow yourhealthcare professional's instructions. Follow Up Care 02/12/2023 13:13:13 With:LAURYN GILL Address: [address] [facility] [address] [facility] [place] [address] [phone] Business (1) When:2-4 days Comments:Schedule appointment as soon as possibleReturn to ED if symptoms worsenReturn for symptoms as described.May use tylenol 3-4x/day With:JESSICA STANFORD Address: [address] [place] [phone] Business (1) When:2-4 days Comments:Schedule appointment as soon as possibleFollow up for blood pressure [facility] 08-27-2023 Emergency department Discharge summary Discharge Instructions Thank you for allowing [facility] to assist you with your healthcare needs. The following is importantdischarge information regarding your hospital visit. Diagnosis from Today's Visit Hypertension What to Do Next Instructions from Your Care Team No qualifying data available. Post Acute Orders No qualifying data available. You Need to Schedule the Following Appointments Follow Up with LAURYN GILL When Within 2-4 days Why: Schedule appointment as soon as possible Return to ED if symptoms worsen Return for symptoms as described. May use tylenol 3-4x/day Where: [address] [facility] [address] [facility] [place] [address] [phone] Business (1) Follow Up with JESSICA STANFORD When Within 2-4 days Why: Schedule appointment as soon as possible Follow up for blood pressure Where: [address] [place] [phone] Business (1) Allergies Lyrica (Unsteady on feet) Medications Please ask your primary doctor or pharmacist before taking any other medication not listed, including over the counter drugs, herbal medications, vitamins and or supplements as they may interact withyour home medications. What How Much When Why Instructions Last Dose New cyclobenzaprine (cyclobenzaprine 10 mg oral tablet) 1 tab(s) by mouth Three (3) times a day prn back spasm/ pain Printed Prescription New naproxen (naproxen 375 mg oral tablet) 1 tab(s) by mouth Two (2) times a day as needed for as needed for pain prn pain with food Printed Prescription Unchanged acetaminophen (acetaminophen 500 mg oral tablet) 2 tab(s) by mouth Three (3) times a day as needed for pain or fever Unchanged aspirin (aspirin 81 mg oral delayed release tablet) 1 tab(s) by mouth Once a day Unchanged atorvastatin (atorvastatin 80 mg oral tablet) 1 tab(s) by mouth Every day Unchanged latanoprost ophthalmic (latanoprost 0.005% ophthalmic solution) 1 Drops Both eyes Once a day (in the evening) Unchanged losartan (losartan 25 mg oral tablet) 1 tab(s) by mouth Once a day Hypertension Unchanged multivitamin (Vitamin B Complex oral capsule) by mouth Once a day Unchanged nitroGLYcerin 0.4 Milligram under the tongue Unchanged omeprazole (omeprazole 20 mg oral delayed release capsule) 1 cap by mouth Once a day GERD (gastroesophageal reflux disease) Unchanged varenicline (Chantix Starter Pack 0.5 mg-1 mg oral tablet) See instructions Tobacco use 0.5mg day 1-3 0.5 mg BID days 4-7 1 mg BID day 8 and after Please take this list to your next doctor s visit. Bring all medications you take, including over the counter medications, herbals and other supplements with you to your doctor s visit. Patients and families are reminded to discard old lists and to update any records with all medication providers or retail pharmacies. Education Materials Back Spasm (No Trauma) Spasm of the back muscles can occur after a sudden forceful twisting or bending such as in a car accident. A spasm can also happen after a simple awkward movement, or after lifting something heavy with poor body positioning. In any case, muscle spasm adds to the pain. Sleeping in an awkward position or on a poor quality mattress can also cause this. Some people respond to emotional stress by tensing the muscles of their back. Pain that continues may need further assessment or other types of treatment such as physical therapy. You don't always need X-rays for the first assessment of back pain, unless you had a physical injury such as from a car accident or fall. If your pain continues and doesn't respond to medical treatment, X-rays and other tests may then be done. Home care As soon as possible, start sitting or walking again. This will help prevent problems from a long bed rest. These problems include muscle weakness, worsening back stiffness and pain, and blood clots in the legs. When in bed, try to find a position of comfort. A firm mattress is best. Try lying flat on your back with pillows under your knees. You can also try lying on your side with your knees bent up toward your chest and a pillow between your knees. Don't sit for long periods. Also limit car rides and travel. This puts more stress on the lower back than standing or walking. During the first 24 to 72 hours after an injury or flare-up, put an ice pack on the painful area for 20 minutes, then remove it for 20 minutes. Do this over a period of 60 to 90 minutes, or several times a day. This will reduce swelling and pain. Always wrap ice packs in a thin towel. You can start with ice, then switch to heat. Heat from a hot shower, hot bath, or heating pad reduces pain and works well for muscle spasms. Put heat on the painful area for 20 minutes, then remove it for 20 minutes. Do this over a period of 60 to 90 minutes, or several times a day. Don't sleep on a heating pad. It can burn or damage skin. Alternate using ice and heat. Be aware of safe lifting methods. don't lift anything over 15 pounds until all the pain is gone. Gentle stretching will help your back heal faster. Do this simple routine 2 to 3 times a day until your back is feeling better. Lie on your back with your knees bent and both feet on the ground. Slowly raise your left knee to your chest as you flatten your lower back against the floor. Hold for 20 to 30 seconds. Relax and repeat the exercise with your right knee. Do 2 to 3 of these exercises for each leg. Repeat, hugging both knees to your chest at the same time. Don't bounce, but use a gentle pull. Medicines Talk with your doctor before using medicine, especially if you have other medical problems or are taking other medicines. You may use kdus-pks-rxdphzs medicines such as acetaminophen, ibuprofen, or naprosyn to control pain, unless your healthcare provider prescribed another pain medicine. Talk with your healthcare provider if you have a chronic condition such as diabetes, liver or kidney disease, stomach ulcer, or digestive bleeding, or are taking blood thinners. Be careful if you are given prescription pain medicine, opioids, or medicine for muscle spasm. Theycan cause drowsiness, and affect your coordination, reflexes, and judgment. Don't drive or operate heavy machinery when taking these medicines. Take pain medicine only as prescribed by your healthcare provider. Follow-up care Follow up with your doctor, or as advised. You may need physical therapy or more tests. If X-rays were taken, they may be reviewed by a radiologist. You will be told of any new findings that may affect your care. Call Call if any of these occur: Trouble breathing Confusion Drowsiness or trouble awakening Fainting or loss of consciousness Rapid or very slow heart rate Loss of bowel or bladder control When to seek medical advice Call your healthcare provider right away if any of these occur: Pain becomes worse or spreads to your legs Weakness or numbness in one or both legs Numbness in the groin or genital area Fever of 100.4 F (38 C) or higher , or as directed by your healthcare provider Chills Burning or pain when passing urine [id number] [employer]. [address] [place], [place] [id number]. All rights reserved. This information is not intended as a substitute for professional medical care. Always follow yourhealthcare professional's instructions. Back Pain (Acute or Chronic) Back pain is one of the most common problems. The good news is that most people feel better in 1 to2 weeks, and most of the rest in 1 to 2 months. Most people can remain active. People who have pain describe it differently not everyone is the same. The pain can be sharp, stabbing, shooting, aching, cramping or burning. Movement, standing, bending, lifting, sitting, or walking may worsen pain. It can be localized to one spot or area, or it can be more generalized. It can spread or radiate upwards, to the front, or go down your arms or legs (sciatica). It can cause muscle spasm. Most of the time, mechanical problems with the muscles or spine cause the pain. Mechanical problemsare usually caused by an injury to the muscles or ligaments. While illness can cause back pain, it is usually not caused by a serious illness. Mechanical problems include: Physical activity such as sports, exercise, work, or normal activity Overexertion, lifting, pushing, pulling incorrectly or too aggressively Sudden twisting, bending, or stretching from an accident, or accidental movement Poor posture Stretching or moving wrong, without noticing pain at the time Poor coordination, lack of regular exercise (check with your doctor about this) Spinal disc disease or arthritis Stress Pain can also be related to , or illness like appendicitis, bladder or kidney infections, pelvic infections, and many other things. Acute back pain usually gets better in 1 to 2 weeks. Back pain related to disk disease, arthritis in the spinal joints or spinal stenosis (narrowing of the spinal canal) can become chronic and last for months or years. Unless you had a physical injury (for example, a car accident or fall) X-rays are usually not needed for the initial evaluation of back pain. If pain continues and does not respond to medical treatment, X-rays and other tests may be needed. Home care Try these home care recommendations: When in bed, try to find a position of comfort. A firm mattress is best. Try lying flat on your back with pillows under your knees. You can also try lying on your side with your knees bent up towardsyour chest and a pillow between your knees. At first, do not try to stretch out the sore spots. If there is a strain, it is not like the good soreness you get after exercising without an injury. In this case, stretching may make it worse. Don't sit for long periods, as in a long car ride or during other travel. This puts more stress on the lower back than standing or walking. During the first 24 to 72 hours after an acute injury or flare up of chronic back pain, apply an ice pack to the painful area for 20 minutes and then remove it for 20 minutes. Do this over a period of 60 to 90 minutes or several times a day. This will reduce swelling and pain. Wrap the ice pack in a thin towel or plastic to protect your skin. You can start with ice, then switch to heat. Heat (hot shower, hot bath, or heating pad) reduces pain and works well for muscle spasms. Heat can be applied to the painful area for 20 minutes then remove it for 20 minutes. Do this over a period of 60 to 90 minutes or several times a day. Do not sleep on a heating pad. It can lead to skin sheldon or tissue damage. You can alternate ice and heat therapy. Talk with your doctor about the best treatment for your back pain. Therapeutic massage can help relax the back muscles without stretching them. Be aware of safe lifting methods and do not lift anything without stretching first. Medicines Talk to your doctor before using medicine, especially if you have other medical problems or are taking other medicines. You may use igwb-fpe-draxkmf medicine as directed on the bottle to control pain, unless another pain medicine was prescribed. If you have chronic conditions like diabetes, liver or kidney disease, stomach ulcers, or gastrointestinal bleeding, or are taking blood thinners, talk to your doctor beforetaking any medicine. Be careful if you are given a prescription medicines, narcotics, or medicine for muscle spasms. They can cause drowsiness, affect your coordination, reflexes, and judgement. Do not drive or operate heavy machinery. Follow-up care Follow up with your healthcare provider, or as advised. A radiologist will review any X-rays that were taken. Your provide will notify you of any new findings that may affect your care. Call 911 Call 911 if any of the following occur: Trouble breathing Confusion Very drowsy or trouble awakening Fainting or loss of consciousness Rapid or very slow heart rate Loss of bowel or bladder control When to seek medical advice Call your healthcare provider right away if any of these occur: Pain becomes worse or spreads to your legs Weakness or numbness in one or both legs Numbness in the groin or genital area 5341-1491 [employer]. [address] [place] [id number]. All rights reserved. This information is not intended as a substitute for professional medical care. Always follow yourhealthcare professional's instructions. Established High Blood Pressure High blood pressure (hypertension) is a chronic disease. Often, healthcare providers don t know what causes it. But it can be caused by certain health conditions and medicines. If you have high blood pressure, you may not have any symptoms. If you do have symptoms, they may include headache, dizziness, changes in your vision, chest pain, and shortness of breath. But even without symptoms, high blood pressure that s not treated raises your risk for heart attack, heart failure, and stroke. High blood pressure is a serious health risk and shouldn t be ignored. Blood pressure measurements are given as 2 numbers. Systolic blood pressure is the upper number. This is the pressure when the heart contracts. Diastolic blood pressure is the lower number. This is the pressure when the heart relaxes between beats. You will see your blood pressure readings written together. For example, a person with a systolic pressure of 118 and a diastolic pressure of 78 will have 118/78 written in the medical record. Blood pressure is categorized as normal, elevated, or stage 1 or stage 2 high blood pressure: Normal blood pressure is systolic of less than 120 and diastolic of less than 80 (120/80) Elevated blood pressure is systolic of 120 to 129 and diastolic less than 80 Stage 1 high blood pressure is systolic is 130 to 139 or diastolic between 80 to 89 Stage 2 high blood pressure is when systolic is 140 or higher or the diastolic is 90 or higher Home care If you have high blood pressure, follow these home care guidelines to help lower your blood pressure. If you are taking medicines for high blood pressure, these methods may reduce or end your need for medicines in the future. Start a weight-loss program if you are overweight. Cut back on how much salt you get in your diet. Here s how to do this: oDon t eat foods that have a lot of salt. These include olives, pickles, smoked meats, and salted potato chips. oDon t add salt to your food at the table. oUse only small amounts of salt when cooking. Start an exercise program. Talk with your healthcare provider about the type of exercise program that would be best for you. It doesn't have to be hard. Even brisk walking for 20 minutes 3 times a week is a good form of exercise. Don t take medicines that stimulate the heart. This includes many eqny-ija-yzdvyqb cold and sinus decongestant pills and sprays, as well as diet pills. Check the warnings about high blood pressure onthe label. Before buying any xuqq-gyo-hxmricv medicines or supplements, always ask the pharmacist about the product's potential interaction with your high blood pressure and your high blood pressure medicines. Stimulants such as amphetamine or cocaine could be deadly for someone with high blood pressure. Never take these. Limit how much caffeine you get in your diet. Switch to caffeine-free products. Stop smoking. If you are a long-time smoker, this can be hard. Talk to your healthcare provider about medicines and nicotine replacement options to help you. Also, enroll in a stop-smoking program tomake it more likely that you will quit for good. Learn how to handle stress. This is an important part of any program to lower blood pressure. Learnabout relaxation methods like meditation, yoga, or biofeedback. If your provider prescribed medicines, take them exactly as directed. Missing doses may cause your blood pressure get out of control. If you miss a dose or doses, check with your healthcare provider or pharmacist about what to do. Consider buying an automatic blood pressure machine to check your blood pressure at home. Ask your provider for a recommendation. You can get one of these at most pharmacies. The [employer] recommends the following guidelines for home blood pressure monitoring: Don't smoke or drink coffee for 30 minutes before taking your blood pressure. Go to the bathroom before the test. Relax for 5 minutes before taking the measurement. Sit with your back supported (don't sit on a couch or soft chair); keep your feet on the floor uncrossed. Place your arm on a solid flat surface (like a table) with the upper part of the arm at heartlevel. Place the middle of the cuff directly above the bend of the elbow. Check the monitor's instruction manual for an illustration. Take multiple readings. When you measure, take 2 to 3 readings one minute apart and record all of the results. Take your blood pressure at the same time every day, or as your healthcare provider recommends. Record the date, time, and blood pressure reading. Take the record with you to your next medical appointment. If your blood pressure monitor has a built-in memory, simply take the monitor with you to your next appointment. Call your provider if you have several high readings. Don't be frightened by a single high blood pressure reading, but if you get several high readings, check in with your healthcare provider. Note: When blood pressure reaches a systolic (top number) of 180 or higher OR diastolic (bottom number) of 110 or higher, seek emergency medical treatment. Follow-up care You will need to see your healthcare provider regularly. This is to check your blood pressure and to make changes to your medicines. Make a follow-up appointment as directed. Bring the record of yourhome blood pressure readings to the appointment. When to seek medical advice Call your healthcare provider right away if any of these occur: Blood pressure reaches a systolic (upper number) of 180 or higher OR a diastolic (bottom number) of110 or higher Chest pain or shortness of breath Severe headache Throbbing or rushing sound in the ears Nosebleed Sudden severe pain in your belly (abdomen) Extreme drowsiness, confusion, or fainting Dizziness or spinning sensation (vertigo) Weakness of an arm or leg or one side of the face You have problems speaking or seeing [id number] [employer]. [address] [place] [address]. All rights reserved. This information is not intended as a substitute for professional medical care. Always follow yourhealthcare professional's instructions. Additional Information VACCINATE! IT SAVES LIVES! Members of the community who have not yet received the COVID-19 vaccine and would like to receive it can visit one of [facility] vaccine clinics. There are many vaccine clinic locations within the [facility]. For locations and available times, please visit www.gettheshot.coronavirus.[place].gov/. It is important to note that some COVID mobile vaccine clinics are held outdoors and may be canceled in rainy or stormy conditions. To learn more about pediatric vaccinations (ages 5-11), we invite you to visit the [facility] webpage. https://www.[email or web address]/pages/8827-Yzigt-Htkqtuullby-Giztefzixy-Gbiux-Zxv stions.htmlTo learn more about the COVID-19 vaccine, we invite you to visit the CDC website for a list of frequently asked questions. https://www.cdc.gov/coronavirus/2019-ncov/vaccines/faq.html [facility] ([facility])Chart Patient Portal Access Instructions: Stay connected with your healthcare team and access your personal medical information anytime with the [facility] ([facility])Chart Patient Portal. If you would like a full copy of your medical records please contact the [facility] Medical Records Department Monday through Monday between 8a.m. and 4:30p.m. Please follow the directions below to access the portal: 1.Access the email account you provided upon registration to the [facility].2.Look for an invitation email from [facility].3.Open the email and access the invitation link: Accept Invitation to [facility]4.Fill in the required acosta to create your account. Sign into www.[employer] with your username and password that you created in the above steps to stay up to date. You can then view a summary of results, a summary of your visits, and the ability to download your summaries to your computer or send the information securely to a physician. Remember that your healthcare information is confidential, so carefully consider who you will allow to register on the [facility] Patient Portal for access to your information. You can also access the [facility] Patient Portal on the [employer]. Simply click on "Health Records" under "[facility]" and then click on the [employer] logo. HOW TO SAFELY DISPOSE OF PRESCRIPTION MEDICATIONS Please use one of the following methods to safely dispose of your unused medications. 1.Use a drug disposal kit: the drug disposal pouch allows you to safely discard your old and unuseddrugs. Ask your nurse to give you one when you are discharged.2.Visit a local take-back location: Many local pharmacies and police departments have programs that collect old and unwanted prescriptiondrugs. Call your local pharmacy or go to http://MyShape.Boxer/8N8Wy8k to find one close to you.3.Make use of household items: Use cat litter or old coffee grounds to dispose medications if other options arenot available. Mix your drugs with these household products, seal them in an airtight container andthrow it into the garbage. Call [facility]: [phone] to be sure your drugs can be disposed of in this way. Some medicines may require a different approach.4.Never flush your medications down the toilet. IF YOU HAVE BEEN PRESCRIBED AN OPIOIDS FOR PAIN If you have been prescribed an opioid (such as hydrocodone, oxycodone or morphine), it is critical to understand the possible side effects and risks of opioid pain medications. Even when taken as directed, opioids can have several side effects including: Tolerance, meaning you might need to take more of a medication for the same pain relief. Nausea, vomiting and/or constipation. Sleepiness, dizziness, dry mouth, confusion, depression or itching. Physical dependence, meaning you have withdrawal symptoms when a medication is stopped ? this can develop within a few days. KNOW YOUR RESPONSIBILITIES It is important to know exactly how much and how often to take the opioid pain medications you are prescribed. Never take opioids in higher amounts or more often than prescribed. Do not combine opioids with alcohol or other drugs that cause drowsiness, such as benzodiazepines, also known as benzos,including diazepam and alprazolam, muscle relaxants or sleep aids. Never sell or share prescriptionopioids. This is illegal. Store opioids in a secure place and out of reach of others (including children, family, friends and visitors). The last page(s) of this document has been signed and retained as a CHART COPY Signatures Patient Education Materials Back Spasm, No Trauma Back Pain (Acute or Chronic) Hypertension, Established Medication Leaflets My discharge plan and instructions have been reviewed and explained to me and I,LIDIA SINGH understand my current condition and have read and understand these discharge instructions. I have received a written copy of the plan/instructions. If I have questions, I am aware that I should contact my doctor. 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 male who returns today for follow-up for lower extremity PAD. Hx of right femoral artery aneurysm repair 2013; Left fem-tib bypass 2013 and right fem tib bypass [address] Dover Last 2021. Here for recall appointment. Pt here with . He states he is doing well. He is still employed--on his feet all day. No c/o. Denies any claudication symptoms or rest pain. Denies any slow or nonhealing sores to feet. Denies any episodes of lateralizing weakness, facial droop or weakness, aphasia, or unilateral sudden temporary blindness. Denies any back pain or abdominal pain. Most recent LE arterial duplex 10/24/22 showed right RIMMA 0.99 and left RIMMA 0.93 with patent bypass grafts bilaterally This is stable from previous testing.. Currently taking the following medications for vascular risk factor modification: Antiplatelet/Anticoagulant: Aspirin Statin: atorvastatin Smoking Status: Current smoker (1 PPD) Patient is aware of negative impacts on smoking and is working on quitting. Past Medical History: Past Medical History: Diagnosis Date Cancer (CMS/HCC) (HCC) 11/2015 melanoma-back Hyperlipidemia Hypertension Peripheral vascular disease (HCC) Past Surgical History: Past Surgical History: Procedure Laterality Date ARTERIAL ANEURYSM REPAIR Right 07/16/2013 rt femoral artery aneurysm FEMORAL-TIBIAL BYPASS GRAFT (HISTORICAL) Left 02/26/2014 Fem[facility]TP [facility]) FEMORAL-TIBIAL BYPASS GRAFT (HISTORICAL) Right 12/13/2012 Fem-TP Trunk [facility]VG ([facility]) SKIN CANCER EXCISION 11/2015 Melanoma-back SKIN CANCER EXCISION 09/2022 chest Current Medications: Current Outpatient Medications: aspirin 81 MG EC tablet, Take 81 mg by mouth daily., Disp: , Rfl: atorvastatin (Lipitor) 80 MG tablet, Take 80 mg by mouth daily., Disp: , Rfl: Cobalamin Combinations (Vitamin K91-Cszwj Acid) 500-400 MCG tablet, Take by mouth., Disp: , Rfl: latanoprost (Xalatan) 0.005 % ophthalmic solution, instill 1 (ONE) drop into both eyes every night,Disp: , Rfl: losartan (Cozaar) 25 MG tablet, Take 25 mg by mouth daily., Disp: , Rfl: omeprazole (PriLOSEC) [address] capsule, Take 20 mg by mouth daily., Disp: , Rfl: polyethylene glycol, PEG, 3350 (Glycolax) 17 GM/SCOOP powder, TAKE 17G BY MOUTH DAILY. DISSOLVE IN WATER OR JUICE, Disp: , Rfl: Allergies: Patient has no known allergies. Social History: Social History Socioeconomic History Marital status: Spouse name: Not on file Number of children: Not on file Years of education: Not on file Highest education level: Not on file Occupational History Not on file Tobacco Use Smoking status: Every Day Packs/day: 1.00 Types: Cigarettes Smokeless tobacco: Never Substance and Sexual Activity Alcohol use: No Drug use: Yes Types: Marijuana Sexual activity: Not on file Other Topics Concern Not on file Social History Narrative Not on file Social Determinants of Health Financial Resource Strain: Not on file Food Insecurity: Not on file Transportation Needs: Not on file Physical Activity: Not on file Stress: Not on file Social Connections: Not on file Intimate Partner Violence: Not on file Housing Stability: Not on file Family History: Family History Problem Relation Name Age of Onset High Blood Pressure Brother Cancer Mother Cancer Brother Cancer Father Diabetes Father REVIEW OF SYSTEMS: Review of Systems Constitutional: Negative. HENT: Negative. Eyes: Negative. Respiratory: Negative. Cardiovascular: Negative. Gastrointestinal: Negative. Endocrine: Negative. Genitourinary: Negative. Musculoskeletal: Negative. Skin: Negative. Allergic/Immunologic: Negative. Neurological: Negative. Hematological: Negative. Psychiatric/Behavioral: Negative. LABS: Lab Results Component Value Date CREATININE 0.98 01/03/2022 No results found for: WBC, HGB, HCT, MCV, PLT No results found for: INR, PROTIME No results found for: VLDL PHYSICAL EXAM: Vitals: 01/24/23 1456 BP: 136/64 Resp: 18 Physical Exam Constitutional: Appearance: Normal appearance. Neck: Vascular: No carotid bruit. Cardiovascular: Rate and Rhythm: Normal rate and regular rhythm. Pulses: Carotid pulses are 2+ on the right side and 2+ on the left side. Radial pulses are 2+ on the right side and 2+ on the left side. Dorsalis pedis pulses are 2+ on the right side and 2+ on the left side. Posterior tibial pulses are 2+ on the right side and 2+ on the left side. Heart sounds: No murmur heard. Comments: Bilateral LE bypass grafts palpable Pulmonary: Effort: Pulmonary effort is normal. No respiratory distress. Breath sounds: Normal breath sounds. Abdominal: General: Abdomen is flat. There is no distension. Palpations: There is no pulsatile mass. Tenderness: There is no abdominal tenderness. There is no guarding. Musculoskeletal: General: Normal range of motion. Cervical back: Normal range of motion and neck supple. Right lower leg: No edema. Left lower leg: No edema. Skin: General: Skin is warm and dry. Neurological: Mental Status: He is alert and oriented to person, place, and time. Psychiatric: Mood and Affect: Mood normal. Behavior: Behavior normal. Imaging Arterial Duplex 10/24/22 Right side findings: Resting RIMMA is 0.99. This is within the normal range. Patent right femoral to tibial arterial bypass graft with elevated velocities at the inflow. Left side findings: Resting RIMMA is 0.93. This is within the normal range. Patent left femoral to popliteal arterial bypass graft with normal velocities. ASSESSMENT/PLAN: Problem List Items Addressed This Visit Circulatory 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, bilateral legs (HCC) - Primary 1. Stable follow up of lower extremity PAD I reviewed with the patient that the circulation to his feet remains adequate and that I do not feel that he requires any additional testing or intervention at this time. Pt should continue on ASA/Lipitor and f/u with PCP for further atherosclerotic risk factor reduction Highly recommend avoidance of all tobacco or nicotine products Meticulous foot care was emphasized and the patient was instructed to call if he develops a non-healing foot wound of any kind I instructed the patient to wlk at least 5 days per week. Repeat arterial duplex in 1 year--already ordered F/U in 1 year for PAD check--sooner should any issues arise . documented in this [facility]02-26-2023 Hospital Discharge instructions Patient Education 08/14/2022 21:16:37 DARBY OVALLE (CUSTOM) Result type:XR Shoulder Minimum 2 Views Left Result date:August 14, 2022 20:35 EST Result status:In Progress Result title:XR SHOULDER MINIMUM 2 VIEWS LEFT Performed by:DAVE DOAN MD on August 14, 2022 20:34 EST Cosigned by:DAVE DOAN MD Encounter info:[id number], [facility], Emergency, 08/14/2022 - Contributor system:[employer] * Preliminary Report * [id number] ORIGINAL EXAMINATION: TWO XRAY VIEWS OF THE LEFT SHOULDER08/14/2022 8:36 pm COMPARISON: Chest x-ray same day HISTORY: ORDERING SYSTEM PROVIDED HISTORY: Reason for Exam: left shoulder pain. No known injury. FINDINGS: There is no glenohumeral joint dislocation. Question mild posterior humeral head depression. Included lungs are grossly clear. There is calcification of the thoracic aorta. The spine is degenerative. IMPRESSION: No definite acute findings. Question mild posterior humeral head depression which may relate to remote Hill-Sachs injury from prior anterior dislocation. Recommend correlation with patient history. Preliminary Report was Dictated by a Resident Preliminary Report By: Dave Doan Dictated Time: 08/14/2022 9:03:19 PM Prelim Time: 08/14/2022 9:09:10 PM Ordering Provider: SAEED LYONS IMAGE This document has an image Document Released: 06/05/2006 Document Revised: 05/22/2013 Document Reviewed: 06/06/2014 [facility] Patient Information 2015 [employer]. This information is not intended to replace advicegiven to you by your health care provider. Make sure you discuss any questions you have with your health care provider. 08/14/2022 21:16:26 Exercises at Your Workstation: Shoulders Exercises at Your Workstation: Shoulders Tight shoulders? Aching back? A few easy moves can help your shoulders and back feel better. Take afew minutes during your day to do these exercises, right at your desk. They'll loosen up your muscles, keep you more alert, and make a big difference in how you work and feel. Breathe deeply as you do your exercises. Inhale through your nose, and exhale through your mouth. For your shoulders Warm-up Drop your head gently to your chest. While breathing in, slowly roll your head up to your left shoulder. While breathing out, slowly roll your head back to center. Repeat to the right. Repeat 3 times on each side. Shoulder raise Slowly raise your shoulders toward your ears. Hold for a few seconds. Slowly bring your shoulders down and relax. Repeat 3 times. Back press Put your hands up, forearms raised. Push your arms back, squeezing your shoulder blades. Hold for a few seconds, then relax. Repeat 3 times. If you feel pain while doing these stretching exercises, please stop and consult your healthcare provider. [id number] [employer]. [address] [place] [address]. All rights reserved. This information is not intended as a substitute for professional medical care. Always follow yourhealthcare professional's instructions. 08/14/2022 19:33:13 Understanding the Pain Response Understanding the Pain Response Your pain is important. It can slow healing and keep you from being active. You may have acute or chronic pain. Both types of pain respond to treatment. Work with your healthcare professional. Together you can find relief. Types of pain Acute pain is caused by a health problem or injury. The pain usually goes away when its cause is treated. You may have pain: From an illness or injury that needs emergency care After an operation, such as heart surgery During and after the of your baby Chronic pain lasts 3 to 6 months or more. It can be caused by a health problem or injury, like arthritis or a shoulder strain. Chronic pain can also exist without a clear cause. Your perception of pain Pain is a complex phenomenon that involves many of the chemicals found naturally in the spinal cordand brain. All pain signals travel to the brain. The brain sends back signals to protect the body. The brain also makes its own painkillers (endorphins). These can help reduce the pain. 1. Pain starts in 1 or more parts of the body. In some cases, the site of the pain is far from its source. 2. Pain signals move through nerves and up the spinal cord. 3. The brain reads the signals as pain. Natural painkillers are released. 4. The feeling of pain can be reduced in this way. [id number] [employer] [place] [address]. All rights reserved. This information is not intended as a substitute for professional medical care. Always follow yourhealthcare professional's instructions. Follow Up Care 08/14/2022 18:48:29 With:MARTHA ARDON MD Address: [address] [place] [address] [address] [place], [place] [address]- [phone] When:2-4 days With:Go to emergency room if symptoms worsen Address:Unknown When:2-4 days With:JESSICA STANFORD APRN-[facility] Address: [address] [facility] [place] [address]- [phone] When:2-4 days [facility] 02-26-2023 Note Discharge Instructions Thank you for allowing [facility] to assist you with your healthcare needs. The following is importantdischarge information regarding your hospital visit. Diagnosis from Today's Visit Musculoskeletal pain Shoulder pain Neck pain Shoulder pain-swelling What to Do Next Instructions from Your Care Team X-ray preliminary said that the humeral head might be slightly depressed but no dislocation. Use sling as needed for comfort be sure to take your arm out every few hours and move around prevent frozen shoulder. Follow-up with Dr. Ardon of orthopedics. Take Flexeril as needed for pain. Do not take before operating heavy machinery. Do not exceed the recommended dose. May take Tylenol and or Motrinas needed otherwise do not exceed the recommended dose. Follow-up with your primary care provider. Return the emergency department if experience worsening pain, if you experience weakness, numbness, chest pain, difficulty breathing, or any other care concern. Discharge Home Equipment - Ordered -- Sling, Arm, 99 month(s), 08/14/22 21:17:00 EST Post Acute Orders No qualifying data available. You Need to Schedule the Following Appointments Follow Up with MARTHA ARDON MD When Within 2-4 days Where: [address] [facility] [address] [place] [address]- [phone] Follow Up with Go to emergency room if symptoms worsen When Within 2-4 days Follow Up with JESSICA STANFORD When Within 2-4 days Where: [address] [facility] [place] [address]- [phone] Allergies Lyrica (Unsteady on feet) Medications Please ask your primary doctor or pharmacist before taking any other medication not listed, including over the counter drugs, herbal medications, vitamins and or supplements as they may interact withyour home medications. What How Much When Why Instructions Last Dose New cyclobenzaprine (cyclobenzaprine 10 mg oral tablet) 1 tab(s) by mouth Three (3) times a day as needed for for muscle spasm Musculoskeletal pain Shoulder pain Duration: 7 Days Printed Prescription Unchanged acetaminophen (acetaminophen 500 mg oral tablet) 2 tab(s) by mouth Three (3) times a day as needed for pain or fever Unchanged aspirin (aspirin 81 mg oral delayed release tablet) 1 tab(s) by mouth Once a day Unchanged atorvastatin (atorvastatin 80 mg oral tablet) 1 tab(s) by mouth Every day Unchanged latanoprost ophthalmic (latanoprost 0.005% ophthalmic solution) 1 Drops Both eyes Once a day (in the evening) Unchanged losartan (losartan 25 mg oral tablet) 1 tab(s) by mouth Once a day Hypertension Unchanged multivitamin (Vitamin B Complex oral capsule) by mouth Once a day Unchanged nitroGLYcerin 0.4 Milligram under the tongue Unchanged varenicline (Chantix Starter Pack 0.5 mg-1 mg oral tablet) See instructions Tobacco use 0.5mg day 1-3 0.5 mg BID days 4-7 1 mg BID day 8 and after Please take this list to your next doctor s visit. Bring all medications you take, including over the counter medications, herbals and other supplements with you to your doctor s visit. Patients and families are reminded to discard old lists and to update any records with all medication providers or retail pharmacies. Education Materials Result type: XR Shoulder Minimum 2 Views Left Result date: August 14, 2022 20:35 EST Result status: In Progress Result title: XR SHOULDER MINIMUM 2 VIEWS LEFT Performed by: DAVE DOAN MD on August 14, 2022 20:34 EST Cosigned by: DAVE DOAN MD Encounter info: [id number], [facility], Emergency, 08/14/2022 - Contributor system: [employer] * Preliminary Report * [id number] ORIGINAL EXAMINATION: TWO XRAY VIEWS OF THE LEFT SHOULDER08/14/2022 8:36 pm COMPARISON: Chest x-ray same day HISTORY: ORDERING SYSTEM PROVIDED HISTORY: Reason for Exam: left shoulder pain. No known injury. FINDINGS: There is no glenohumeral joint dislocation. Question mild posterior humeral head depression. Included lungs are grossly clear. There is calcification of the thoracic aorta. The spine is degenerative. IMPRESSION: No definite acute findings. Question mild posterior humeral head depression which may relate to remote Hill-Sachs injury from prior anterior dislocation. Recommend correlation with patient history. Preliminary Report was Dictated by a Resident Preliminary Report By: Dave Doan Dictated Time: 08/14/2022 9:03:19 PM Prelim Time: 08/14/2022 9:09:10 PM Ordering Provider: SAEED LYONS IMAGE This document has an image Document Released: 06/05/2006 Document Revised: 05/22/2013 Document Reviewed: 06/06/2014 [facility] Patient Information 2015 [employer]. This information is not intended to replace advicegiven to you by your health care provider. Make sure you discuss any questions you have with your health care provider. Exercises at Your Workstation: Shoulders Tight shoulders? Aching back? A few easy moves can help your shoulders and back feel better. Take afew minutes during your day to do these exercises, right at your desk. They'll loosen up your muscles, keep you more alert, and make a big difference in how you work and feel. Breathe deeply as you do your exercises. Inhale through your nose, and exhale through your mouth. For your shoulders Warm-up Drop your head gently to your chest. While breathing in, slowly roll your head up to your left shoulder. While breathing out, slowly roll your head back to center. Repeat to the right. Repeat 3 times on each side. Shoulder raise Slowly raise your shoulders toward your ears. Hold for a few seconds. Slowly bring your shoulders down and relax. Repeat 3 times. Back press Put your hands up, forearms raised. Push your arms back, squeezing your shoulder blades. Hold for a few seconds, then relax. Repeat 3 times. If you feel pain while doing these stretching exercises, please stop and consult your healthcare provider. [id number] [employer]. [address] [place] [address]. All rights reserved. This information is not intended as a substitute for professional medical care. Always follow yourhealthcare professional's instructions. Understanding the Pain Response Your pain is important. It can slow healing and keep you from being active. You may have acute or chronic pain. Both types of pain respond to treatment. Work with your healthcare professional. Together you can find relief. Types of pain Acute pain is caused by a health problem or injury. The pain usually goes away when its cause is treated. You may have pain: From an illness or injury that needs emergency care After an operation, such as heart surgery During and after the of your baby Chronic pain lasts 3 to 6 months or more. It can be caused by a health problem or injury, like arthritis or a shoulder strain. Chronic pain can also exist without a clear cause. Your perception of pain Pain is a complex phenomenon that involves many of the chemicals found naturally in the spinal cordand brain. All pain signals travel to the brain. The brain sends back signals to protect the body. The brain also makes its own painkillers (endorphins). These can help reduce the pain. 1. Pain starts in 1 or more parts of the body. In some cases, the site of the pain is far from its source. 2. Pain signals move through nerves and up the spinal cord. 3. The brain reads the signals as pain. Natural painkillers are released. 4. The feeling of pain can be reduced in this way. [id number] [employer]. [address] [place] [address]. All rights reserved. This information is not intended as a substitute for professional medical care. Always follow yourhealthcare professional's instructions. Additional Information VACCINATE! IT SAVES LIVES! Members of the community who have not yet received the COVID-19 vaccine and would like to receive it can visit one of [facility] vaccine clinics. There are many vaccine clinic locations within the [facility]. For locations and available times, please visit www.gettheshot.coronavirus.[place].gov/. It is important to note that some COVID mobile vaccine clinics are held outdoors and may be canceled in rainy or stormy conditions. To learn more about pediatric vaccinations (ages 5-11), we invite you to visit the [facility] webpage. [email or web address].[email or web address].org/pages/1097-Jpedf-Qntvhenelqr-Trsodmtdtj-Qyyfs-[email or web address] stions.htmlTo learn more about the COVID-19 vaccine, we invite you to visit the CDC website for a list of frequently asked questions. https://www.cdc.gov/coronavirus/2019-ncov/vaccines/faq.html [facility] Access Instructions: Stay connected with your healthcare team and access your personal medical information anytime with the [facility] Patient Portal. If you would like a full copy of your medical records please contact the [facility] Medical Records Department Monday through Monday between 8a.m. and 4:30p.m. Please follow the directions below to access the portal: 1.Access the email account you provided upon registration to the [facility].2.Look for an invitation email from [facility].3.Open the email and access the invitation link: Accept Invitation to [facility] (PR[facility]4.Fill in the required acosta to create your account. Sign into www.[employer] with your username and password that you created in the above steps to stay up to date. You can then view a summary of results, a summary of your visits, and the ability to download your summaries to your computer or send the information securely to a physician. Remember that your healthcare information is confidential, so carefully consider who you will allow to register on the [facility] Patient Portal for access to your information. You can also access the [facility] Patient Portal on the [employer]. Simply click on "Health Records" under "HealthData" and then click on the [facility] logo. HOW TO SAFELY DISPOSE OF PRESCRIPTION MEDICATIONS Please use one of the following methods to safely dispose of your unused medications. 1.Use a drug disposal kit: the drug disposal pouch allows you to safely discard your old and unuseddrugs. Ask your nurse to give you one when you are discharged.2.Visit a local take-back location: Many local pharmacies and police departments have programs that collect old and unwanted prescriptiondrugs. Call your local pharmacy or go to http://MyShape.Boxer/6W3Vc5y to find one close to you.3.Make use of household items: Use cat litter or old coffee grounds to dispose medications if other options arenot available. Mix your drugs with these household products, seal them in an airtight container andthrow it into the garbage. Call [facility]: [phone] to be sure your drugs can be disposed of in this way. Some medicines may require a different approach.4.Never flush your medications down the toilet. IF YOU HAVE BEEN PRESCRIBED AN OPIOIDS FOR PAIN If you have been prescribed an opioid (such as hydrocodone, oxycodone or morphine), it is critical to understand the possible side effects and risks of opioid pain medications. Even when taken as directed, opioids can have several side effects including: Tolerance, meaning you might need to take more of a medication for the same pain relief. Nausea, vomiting and/or constipation. Sleepiness, dizziness, dry mouth, confusion, depression or itching. Physical dependence, meaning you have withdrawal symptoms when a medication is stopped ? this can develop within a few days. KNOW YOUR RESPONSIBILITIES It is important to know exactly how much and how often to take the opioid pain medications you are prescribed. Never take opioids in higher amounts or more often than prescribed. Do not combine opioids with alcohol or other drugs that cause drowsiness, such as benzodiazepines, also known as benzos,including diazepam and alprazolam, muscle relaxants or sleep aids. Never sell or share prescriptionopioids. This is illegal. Store opioids in a secure place and out of reach of others (including children, family, friends and visitors). The last page(s) of this document has been signed and retained as a CHART COPY Signatures Patient Education Materials DARBY OVALLE (CUSTOM) Exercises at Your Workstation: Shoulders Understanding the Pain Response Medication Leaflets My discharge plan and instructions have been reviewed and explained to me and I,LIDIA SINGH understand my current condition and have read and understand these discharge instructions. I have received a written copy of the plan/instructions. If I have questions, I am aware that I should contact my doctor. 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 No known injury. FINDINGS: There is no glenohumeral joint dislocation. Included lungs are grossly clear. There is calcification of the thoracic aorta. The spine is degenerative. IMPRESSION: No definite acute findings. I have personally reviewed the images of this examination and agree with the resident's findings and interpretation. Interpreted by: Michael Escobedo MD Preliminary Report By: Dave Doan Electronically signed By Michael Escobdeo MD Dictated Date: 08/14/2022 9:03:19 PM Prelim Date: 08/14/2022 9:09:10 PM Sign Date: 08/14/2022 9:20:21 PM Ordering Provider: [facility]02-26-2023 Note ORIGINAL EXAMINATION: ONE XRAY VIEW OF THE CHEST08/14/2022 8:35 pm COMPARISON: 06/14/2022 HISTORY: ORDERING SYSTEM PROVIDED HISTORY: Reason for Exam: chest pain FINDINGS: The cardiomediastinal silhouette is within normal limits. No focal pulmonary consolidation, pneumothorax, or large pleural effusion visualized. No acute osseous abnormalities identified. The spine is degenerative. There is atherosclerosis of the thoracic aorta. IMPRESSION: No acute radiographic abnormality identified. I have personally reviewed the images of this examination and agree with the resident's findings and interpretation. Interpreted by: Andre Mcintyre Preliminary Report By: Dave Doan Electronically signed By Andre Mcintyre Dictated Date: 08/14/2022 9:09:25 PM Prelim Date: 08/14/2022 9:11:11 PM Sign Date: 08/14/2022 9:18:16 PM Ordering Provider: [facility]02-26-2023 Note ORIGINAL EXAMINATION: TWO XRAY VIEWS OF THE LEFT SHOULDER08/14/2022 8:36 pm COMPARISON: Chest x-ray same day HISTORY: ORDERING SYSTEM PROVIDED HISTORY: Reason for Exam: left shoulder pain. No known injury. FINDINGS: There is no glenohumeral joint dislocation. Included lungs are grossly clear. There is calcification of the thoracic aorta. The spine is degenerative. IMPRESSION: No definite acute findings. I have personally reviewed the images of this examination and agree with the resident's findings and interpretation. Interpreted by: Michael Escobedo MD Preliminary Report By: Dave Doan Electronically signed By Michael Escobedo MD Dictated Date: 08/14/2022 9:03:19 PM Prelim Date: 08/14/2022 9:09:10 PM Sign Date: 08/14/2022 9:20:21 PM Ordering Provider: [facility]02-26-2023 Note ORIGINAL EXAMINATION: ONE XRAY VIEW OF THE CHEST08/14/2022 8:35 pm COMPARISON: 06/14/2022 HISTORY: ORDERING SYSTEM PROVIDED HISTORY: Reason for Exam: chest pain FINDINGS: The cardiomediastinal silhouette is within normal limits. No focal pulmonary consolidation, pneumothorax, or large pleural effusion visualized. No acute osseous abnormalities identified. The spine is degenerative. There is atherosclerosis of the thoracic aorta. IMPRESSION: No acute radiographic abnormality identified. I have personally reviewed the images of this examination and agree with the resident's findings and interpretation. Interpreted by: Andre Mcintyre Preliminary Report By: Dave Doan Electronically signed By Andre Mcintyre Dictated Date: 08/14/2022 9:09:25 PM Prelim Date: 08/14/2022 9:11:11 PM Sign Date: 08/14/2022 9:18:16 PM Ordering Provider: [facility]01-07-2023 History of Present illness Narrative* Berenice Saul APRN.[employer] - 06/25/2022 9:45 AM EST CC: Patient presents with: Ear Pain: Left ear pain, chest congestion x 6 days HPI: Lidia Singh is a 67 year old male who presents to the office with complaint of head congestion andear symptoms for 6 days. Symptoms are worsening Associated symptoms includes ear pain. Denies fever, nausea, vomiting , and diarrhea. Treatments tried include nothing so far. with no relief of symptoms. Sick contacts: unknown. History of asthma, frequent episodes of bronchitis, chronic bronchitis, bronchiectasis or COPD: No Smoker: No Seasonal/environmental allergies: No The ROS is otherwise negative. The patient's pmh, medications, allergies, and past visits are reviewed. PHYSICAL EXAM: BP 148/78 Pulse 60 Temp 36.2 C (97.2 F) Resp 21 Wt 61.8 kg (136 lb 3.2 oz) SpO2 99% BMI24.13 kg/m General appearance: alert, cooperative, pleasant, in no acute distress Head: Normocephalic Eyes: EOM's intact, conjunctiva pink and moist, no icterus, sclera white, non-injected Ears: Right ear: External ear/canal- Normal, TM - clear with good landmarks. Left ear: External ear/canal- Normal, TM - erythematous, bulging Oropharynx:moist without lesions, No erythema, exudates or tonsillar hypertrophy. Heart: Negative. RRR without obvious murmur, gallop, or rubs. No ectopy. Lungs: clear to auscultation, without rales or wheeze, good air exchange PAST MEDICAL HISTORY Diagnosis Date Abdominal pain, right lower quadrant Abscess of intestine 05/09/2006 Alcohol abuse, in remission Benign neoplasm of colon Benign neoplasm of colon Carpal tunnel syndrome bilateral Diverticulitis of colon (without mention of hemorrhage)(562.11) 05/23/2006 DVT (deep venous thrombosis) (HCC) Embolism and thrombosis of unspecified site 09/19/2007 Right calf Headache, cluster, episodic Hypertrophy of prostate without urinary obstruction and other lower urinary tract symptoms (LUTS) Hypertrophy of the prostate w/o obstruction Mixed hyperlipidemia Hyperlipidemia Peptic ulcer, unspecified site, unspecified as acute or chronic, without mention of hemorrhage or perforation Tobacco use disorder 04/14/2005 Unspecified glaucoma(365.9) PAST SURGICAL HISTORY Procedure Laterality Date ARTHRP INTERPOS INTERCARPAL/METACARPAL JOINTS Right 10/07/2020 Right thumb CMC arthroplasty with LRTI, palmaris longus COLONOSCOPY - DIAGNOSTIC 06/19/1985 with biopsy COLONOSCOPY W/BIOPSY SINGLE/MULTIPLE 12/14/2006 repeat 11/2011 COLSC FLX W/RMVL OF TUMOR POLYP LESION SNARE TQ 08/25/2006 Polyp in Transverse Colon NEUROPLASTY &/TRANSPOS MEDIAN NRV CARPAL TUNNE 06/19/1984 Carpal tunnel decomp bilateral [facility] NEUROPLASTY &/TRANSPOS MEDIAN NRV CARPAL TUNNE 07/16/2010 Carpal tunnel decomp lt PAST SURGICAL HISTORY OF 11/19/2008 Lumbar spine surgery. PAST SURGICAL HISTORY OF 01/17/2011 lumbar spine surgery- bulging disc PAST SURGICAL HISTORY OF 05/19/2006 sigmoid colectomy- diverticultitis PAST SURGICAL HISTORY OF 12/2020 Removal of prostate SLCTV CATHJ 3RD+ ORD SLCTV ABDL PEL/LXTR BRNCH 09/25/2007 TRANSCATH STENT INIT VESSEL,PERCUT 09/25/2007 Right superficial femoral artery. ALLERGIES Nabumetone MEDICATIONS Vitamin Q93-Usmba Acid 0.5-1 mg tab Take by mouth. losartan (COZAAR) 25 mg tablet Take 1 (ONE) tab(s) Oral EVERY Day latanoprost (XALATAN) 0.005 % ophthalmic solution instill 1 (ONE) DROP IN BOTH EYES NIGHTLY atorvastatin (LIPITOR) 40 mg tablet Take 40 mg by mouth once daily. aspirin, enteric coated (ECOTRIN LOW STRENGTH) 81 mg EC tablet Take 1 tablet by mouth once daily. amoxicillin (AMOXIL) 875 mg tablet Take 1 tablet by mouth twice daily for 7 days. predniSONE (DELTASONE) 10 mg tablet Take 6 pills (all at once) on day 1, 5 pills on day 2, 4 pills on day 3, 3 pills on day 4, 2 pills on day 5, and 1 pill on day 6. (Patient not taking: Reported on 06/25/2022) meloxicam (MOBIC) 15 mg tablet Take 1 tablet by mouth once daily. (Patient not taking: Reported on 04/18/2022) FAMILY HISTORY Problem Relation Age of Onset Cancer Mother lung cancer, Cancer Father stomach cancer, Diabetes Father Cancer Maternal Grandmother breast cancer, dec. Diabetes Maternal Grandmother Prostate Cancer Brother 3 years older Coronary Artery Disease Brother 48 y.o. [place], premature Hypertension Brother Coronary Artery Disease Sister age 54, [place] Social History Tobacco Use Smoking status: Every Day Packs/day: 1.00 Years: 35.00 Pack years: 35.00 Types: Cigarettes Smokeless tobacco: Never Tobacco comments: Smoking less than a pack a day. Vaping Use Vaping Use: Never used Substance Use Topics Alcohol use: No Comment: past history of alcohol abuse Drug use: Yes Comment: Smokes 1 joint once a week ASSESSMENT/PLAN: 1. Acute otitis media, left - ICD9: 382.9, ICD10: H66.92 Oxacillin twice a day for 7 days due to first-line treatment for ear infections. Differentials rhinosinusitis. Went over chart and medication. Prescription instructions reviewed with patient as applicable. Potential red flag symptoms discussed with the patient. Reviewed appropriate action plan to take if red flag symptoms occur. Patient agreeable to treatment plan. Berenice Saul APRN.KO documented in this encounterOhio[facility]10-31-2022 History of Present illness Narrative* Dipesh Barcenas MD - 04/18/2022 9:28 AM EDT Dipesh Barcenas MD Department of Orthopaedics Orthopaedics [address] [place] [address] Dept: [phone] Dept April 18, 2022 CHIEF COMPLAINT: Pain and Established Patient of the Right Hip and Last seen 11/30/20 S/P Right thumb CMC arthroplasaty (With LRTI (10/07/20)/) HPI Patient states he is having right lateral hip pain. After he gets home from work and sits in a chair he has excruciating pain in that hip when he gets up to walk. Taking Tylenol for the pain and states it helped in the beginning but does not help anymore. 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 Fouzia with patient today. X-rays done on 04/15/22. AMB ROOMING INTAKE FLOWSHEET DATA Risk Screening Do you have concerns about personal safety or safety in the home?: No Pain Pain Location: Hip-Right Description: Sharp Duration Amount of Time: 3 Duration Units: Months Frequency: Continuous Intervention/Comfort measure: Medication ASSESSMENT: M70.61 Trochanteric bursitis of right hip (primary encounter diagnosis) M25.559 Hip pain PLAN: We will try some medicine, get him into some physical therapy. I think this is most likely hip tendinitis/bursitis versus joint pain. Mr. Lidia Singh was advised as to contrast therapies and/or to take analgesics/anti-inflammatoriesas needed and all contraindications were reviewed. OBJECTIVE: Mr. Lidia Singh is a pleasant 67 year old in no apparent distress. Gen:There were no vitals taken for this visit. nl development, non obese, no deformities ENT: Normocephalic, normal hearing, moist mucosa CV: Pulses:DP/PT= 2+ and symmetric, capillary refill < 2 secs, no peripheral edema/varicosities Skin: no rash, bruising or lesions. Good turgor. Psych: cooperative and appropriate, alert and oriented x 3, good mood and affect. Musculoskeletal: Patient walks without antalgia. Tender to palpation over the greater trochanter and slightly posteriorly on the short external rotators. Pain with abduction of the hip. No pain with flexion and internal rotation of the leg. Imaging: IMPRESSION: Degenerative changes as described. Plastics Bench Mechanic: PSCB Transcribe Date/Time: Apr 18 2022 9:00A Dictated by : MICHAEL GAMA DO This examination was interpreted and the report reviewed and electronically signed by: MICHAEL GAMA DO on Apr 18 2022 9:04AM EST Results-Findings * * *Final Report* * * DATE OF EXAM: Apr 15 2022 4:31PM WOX [id number] - XR HIP 3V PELV+ AP/LAT RT / PROCEDURE REASON: Pain in right hip * * * * Physician Interpretation * * * * EXAMINATION: XR HIP 3V PELV+ AP/LAT RT PATIENT/TECHNOLOGIST PROVIDED HISTORY: Right posterior hip pain x 3 months without injury CLINICAL INFORMATION: 67 years old Male with Pain in right hip TECHNIQUE: XR HIP 3V PELV+ AP/LAT RT Laterality: RIGHT Number of different views (projections): 3 COMPARISON: None RESULT: No fracture. Minimal degenerative change RIGHT hip and mild degenerative change LEFT hip. Globular calcification adjacent to RIGHT greater trochanter representing gluteal calcific tendinosis. Incompletely assessed degenerative changes lower lumbar spine. Sacroiliac joints and pubic symphysis are within normal limits. Vascular calcifications and partially visualized vascular stent in the RIGHT mid thigh. Surgical clips bilateral inguinal regions. Supporting Subjective Information Below: Past Surgical History: PAST SURGICAL HISTORY Procedure Laterality Date ARTHRP INTERPOS INTERCARPAL/METACARPAL JOINTS Right 10/07/2020 Right thumb CMC arthroplasty with LRTI, palmaris longus COLONOSCOPY - DIAGNOSTIC 06/19/1985 with biopsy COLONOSCOPY W/BIOPSY SINGLE/MULTIPLE 12/14/2006 repeat 11/2011 COLSC FLX W/RMVL OF TUMOR POLYP LESION SNARE TQ 08/25/2006 Polyp in Transverse Colon NEUROPLASTY &/TRANSPOS MEDIAN NRV CARPAL TUNNE 06/19/1984 Carpal tunnel decomp bilateral [facility] NEUROPLASTY &/TRANSPOS MEDIAN NRV CARPAL TUNNE 07/16/2010 Carpal tunnel decomp lt PAST SURGICAL HISTORY OF 11/19/2008 Lumbar spine surgery. PAST SURGICAL HISTORY OF 01/17/2011 lumbar spine surgery- bulging disc PAST SURGICAL HISTORY OF 05/19/2006 sigmoid colectomy- diverticultitis PAST SURGICAL HISTORY OF 12/2020 Removal of prostate SLCTV CATHJ 3RD+ ORD SLCTV ABDL PEL/LXTR BRNCH 09/25/2007 TRANSCATH STENT INIT VESSEL,PERCUT 09/25/2007 Right superficial femoral artery. Medications: Current Outpatient Medications Medication Sig Vitamin G72-[id number] Acid 0.5-1 mg tab Take by mouth. losartan (COZAAR) 25 mg tablet Take 1 (ONE) tab(s) Oral EVERY Day latanoprost (XALATAN) 0.005 % ophthalmic solution instill 1 (ONE) DROP IN BOTH EYES NIGHTLY atorvastatin (LIPITOR) 40 mg tablet Take 40 mg by mouth once daily. aspirin, enteric coated (ECOTRIN LOW STRENGTH) 81 mg EC tablet Take 1 tablet by mouth once daily. meloxicam (MOBIC) 15 mg tablet Take 1 tablet by mouth once daily. (Patient not taking: Reported on 04/18/2022) No current facility-administered medications for this visit. Allergies: Nabumetone ROS: General (negative for fatigue, malaise, weight loss/gain) HEENT (negative for headache, earache, recent vision changes, sinus pain, sore throat) Respiratory (no recent shortness of breath, hemoptysis) CV (negative for chest tightness, palpitations) Musculoskeletal (see HPI) Psych (no depression, anxiety) Dipesh Barcenas MD documented in this encounterOhio[facility]10-28-2022 History of Present illness Narrative* Sera Zavala, RT(R) - 04/15/2022 4:30 PM EDT Radiology Service Progress Note PATIENT NAME: Lidia Singh DATE OF SERVICE: April 15, 2022 TIME: 4:16 PM PATIENT IDENTITY VERIFICATION COMPLETED USING TWO (2) IDENTIFIERS: Name and Date of confirmedby patient verbally. FALL SCREENING: Has the patient had 2 falls in the last year or 1 fall with injury or currently using an Ambulatory Assistive Device (Walker, Cane, Wheelchair, Crutches, etc.)? No PATIENT GENDER DATA: Male PATIENT RELEVANT IMPLANT DATA REVIEWED: Yes RADIOLOGY DEPARTMENT: General X-ray: Exam(s) Completed: Pelvis X-Ray: Pelvis with Hip Right PERIPHERAL IV DATA: Not applicable SIGNED BY: RT Ely(R) April 15, 2022 4:16 PM documented in this encounterOhiohealth [facility] Hospital05-07-2022 History of Present illness Narrative* Lady Taveras APRN.CNP - 10/23/2021 11:07 AM EDT CC: Patient presents with: Ear Pain: bilteral ear pain rated 6, intermittent x2 mths HPI: Lidia Singh is a 66 year old male who presents to the office with complaint of bilateral ear discomfort. Worse on the left. Patient states he developed pressure, pain and popping sensation in both ears two months ago. Hearing is muffled on the left. Gradually worsening in the left ear Denies fever, chills, headache, nasal congestion, sinus pain/pressure, recent URI. Treatments tried include nothing so far. Smoker: Yes Seasonal/environmental allergies: No The ROS is otherwise negative. The patient's pmh, medications, allergies, and past visits are reviewed. PHYSICAL EXAM: BP 142/76 Pulse (!) 54 Temp 36.4 C (97.5 F) Resp 16 Wt 60.5 kg (133 lb 6.4 oz) SpO2 98% BMI 23.64 kg/m General appearance: alert, cooperative, pleasant, in no acute distress Head: Normocephalic Ears: Right ear: External ear/canal- Normal, TM - partially obscured by cerumen. Left ear: Externalear/canal- Normal, TM - visualization obscured by wax ASSESSMENT/PLAN: 1. Acute otitis media, left - ICD9: 382.9, ICD10: H66.92 Bilateral ears lavaged. Right TM normal. Left TM now partially obscured by wax, visualized TM erythematous with bubbles present - Will begin treatment with Amoxicillin for 7 days - Follow up in 3-5 days if symptoms persist or worsen. Prescription instructions reviewed with patient as applicable. Potential red flag symptoms discussed with the patient. Reviewed appropriate action plan to take if red flag symptoms occur. Patient agreeable to treatment plan. Lady Taveras APRN.CNP documented in this encounterOhio[facility]04-20-2022 History of Present illness Narrative* Mikael Anderson MD - 10/06/2021 3:55 PM EDT SKIN EXAM Last Visit: 02-11-2021 CC: This patient is a 66 year old male. Patient presents with: Derm Problem: growth of concern SELF HPI: patient presents today with a growth of concern. History of melanoma and NMSC 1) back - couple spots -present for a month -asymptomatic SOC: Social History Tobacco Use Smoking status: Current Every Day Smoker Packs/day: 1.00 Years: 35.00 Pack years: 35.00 Types: Cigarettes Smokeless tobacco: Never Used Vaping Use Vaping Use: Never used Substance Use Topics Alcohol use: No Comment: past history of alcohol abuse Drug use: Yes Comment: Smokes 1 joint once a week MEDS: Current outpatient prescriptions: Current Outpatient Medications on File Prior to Visit Medication Sig Vitamin Z67-Ucpzw Acid 0.5-1 mg tab Take by mouth. losartan (COZAAR) 25 mg tablet Take 1 (ONE) tab(s) Oral EVERY Day latanoprost (XALATAN) 0.005 % ophthalmic solution instill 1 (ONE) DROP IN BOTH EYES NIGHTLY meloxicam (MOBIC) 15 mg tablet Take 1 tablet by mouth once daily. atorvastatin (LIPITOR) 40 mg tablet Take 40 mg by mouth once daily. aspirin, enteric coated (ECOTRIN LOW STRENGTH) 81 mg EC tablet Take 1 tablet by mouth once daily. No current facility-administered medications on file prior to visit. ALLERGY: ALLERGIES Allergen Reactions Nabumetone GI Upset PAST MEDICAL HISTORY: -Personal History of Skin Cancer: Yes -Personal History of Atypical Nevi: No -Personal History of Blistering Sunburns:No FAMILY HISTORY: -Family History of Skin Cancer: No REVIEW OF SYSTEMS: Constitutional: Denies any chills, fatigue, fever, unexplained weight loss or gain Eyes: Denies eye irritation/problems Respiratory: Denies frequent/chronic coughing, shortness of breath GI: Denies nausea, vomiting, abdominal pain, diarrhea Endocrine: Denies swollen lymph nodes MS: Denies joint pain Neurologic: Denies nerve pain, frequent or recurring headaches, numbness or tingling Psych: Denies anxiety/nervousness, depression Hematology: Denies easy bruising, blood clots PHYSICAL EXAM: The patient is a pleasant male in no distress. Patient appears healthy, well developed, well nourished and in otherwise good health. Alert and oriented x 3. A skin exam was done of theback. - Scattered reticulated light talbert macules in sun distribution - Regular and symmetric brown macules and papules on the back - Few scattered brown "stuck on" papules and plaques on the Back - Well healed scar on left upper back A/P: 1. History of Melanoma No evidence of recurrence on back Will schedule FBSE 2. Solar Lentigines, Benign Appearing Nevi, Seborrheic Keratoses: Reassurance on benign nature of lesions and recommend routine self-examinations. Should any areas change in size, shape or color, bleed or become tender, the patient will contact the office for evaluation sooner than their interval appointment. Patient verbalizes understanding and agrees with treatment plan. Follow up for FBSE The documentation for this note was completed by Juanis Wood Ma acting as scribe for Mikael Anderson MD. October 06, 2021 3:55 PM. Juanis Aguila November,.LIGHT BULB ASSEMBLER (training) I agree with the Chief Complaint, ROS, and Past Histories independently gathered by the clinical developer support engineer and the remaining scribed note accurately describes my personal service to the patient. Attending Note I evaluated the patient and personally participated in the mueller components. I agree with the PA/RACK WASHER'sfindings and plan as documented and have discussed the case and management of the patient's care with the PA/RACK WASHER. Mikael Anderson M.D. documented in this encounterOhio[facility]03-29-2022 Miscellaneous Notes* Telephone Encounter - Liliana Foreman - 09/14/2021 3:46 PM EDT Roya, Patient called in and has some GOC on his body. Can we get him in soon? He does not want to see anyone besides you. Thank you, Mary documented in this encounterOhio[facility] Hospital06-15-2021 Ludivina ID: [id number] Author: Fatoumata Jarrett, OT/L Service: ? Author Type: Occupational Therapist Type: Progress Notes Filed: 12/01/2020 10:44 AM Note Text: Episode Visit Count: 5 Therapist That Will Oversee The Plan Of Care: Darinel Ham Start of Care Date: 11/03/20 Onset Date: 10/07/20 Patient Identified by Name and Date of : Yes REHABILITATION AND SPORTS THERAPY OCCUPATIONAL THERAPY DISCONTINUANCE OF CARE PLAN OF CARE UPDATE: Assessment: Lidia Singh is discontinued from Occupational Therapy services due to goal achievement and maximal benefit.. Patient was seen for 5 visits from Start of Care Date: 11/03/20 to 12/01/2020 and treatment included: Therapeutic exercise, Self-fdc management, Modalities, Custom orthosis fabrication and Prefabricated orthosis fitting. Goals for Episode of Care created on 11/03/20 through 01/03/21 Patient will report a good understanding of diagnosis and OT recommendations for progression of program.MET Patient will demonstrate independence with ongoing home recommendations/exercise program throughout therapy plan of care.MET Patient will independently demonstrate correct application of CUSTOM orthosis and verbalize understanding of proper wear/care. MET Patient will report a good understanding of edema control, scar / wound management throughout therapy plan of care to promote non-adherent / non-tender soft tissue MET. SUBJECTIVE: Pt reports he has no pain, he is nearly performing full duty, saw MD and is discharged, he has good understanding of HEP Pain: Pain Pain Level: 0 Post Treatment Pain Post Treatment Pain Level: 0 PROMIS Scales Higher is Better 02/02/2016 02/02/2016 10/31/2016 GH Physical - Percentile 22 % 22 % 10 % GH Mental - Percentile 19 % 19 % 9 % T-scores: mean of general population = 50. 5 points is clinically meaningfully difference Percentiles provide an indication of how the patient's score ranks in relation to the general population. Higher percentile rankings indicate better function/quality of life. 50th percentile is the average of the general population and indicates half of respondents had a worse score. T-scores: mean of general population = 50. 5 points is clinically meaningfully difference Percentiles provide an indication of how the patient's score ranks in relation to the general population. Higher percentile rankings indicate better function/quality of life. 50th percentile is the average of the general population and indicates half of respondents had a worse score. OBJECTIVE MEASURES WITH LEVEL OF FUNCTION: Hand Wrist AROM: Right Limitation Right Hand AROM: All Digits Thumb AROM: Right Limitation Strength: Rolling Mill Operator Helper Position 2;Pinch Meter Sensation: Denies tingling or numbness Hand Strength R Rolling Mill Operator Helper Position 2 (lbs): 62 lbs R Lateral Pinch (lbs): 13.5 lbs R Tripod/ 3 Jaw Paul (lbs): 11 lbs UE AROM Right Hand AROM: All Digits Thumb AROM: Right Limitation Hand AROM R Index Finger MP Extension: 0 Degrees R Index Finger MP Flexion: 70 Degrees R Index Finger PIP Extension : 0 Degrees R Index Finger PIP Flexion: 86 Degrees R Index Finger DIP Extension : 0 Degrees R Index Finger DIP Flexion: 72 Degrees Right Index Finger Total Active Movement: 228 R Middle Finger MP Extension : 0 Degrees R Middle Finger MP Flexion : 84 Degrees R Middle Finger PIP Extension: 0 Degrees R Middle Finger PIP Flexion : 99 Degrees R Middle Finger DIP Extension : 0 Degrees R Middle Finger DIP Flexion : 59 Degrees Right Middle Finger Total Active Movement: 242 R Ring Finger MP Extension : 0 Degrees R Ring Finger MP Flexion : 81 Degrees R Ring Finger PIP Extension: 0 Degrees R Ring Finger PIP Flexion : 102 Degrees R Ring Finger DIP Extension: 0 Degrees R Ring Finger DIP Flexion : 74 Degrees Right Ring Finger Total Active Movement: 257 R Little Finger MP Extension : 0 Degrees R Little Finger MP Flexion : 85 Degrees R Little Finger PIP Extension : 0 Degrees R Little Finger PIP Flexion : 94 Degrees R Little Finger DIP Extension : 0 Degrees R Little Finger DIP Flexion : 79 Degrees Right Little Finger Total Active Movement: 258 R Thumb MP Flexion : 30 Degrees R Thumb IP Flexion : 62 Degrees R Thumb Radial Abduction: 70 Degrees R Thumb Palmar Abduction: 70 Degrees TREATMENT: Therapeutic Exercise: 1: wrist flex/ext deviation 2: tendon gliding 3: with 1# weight 4: pt issued medium (green) putty performed it security project manager, digit flexion and tripod pinch 5: with medium (green) putty lateral pinch and thumb adduction 6: instructed pt in continued performance of HEP to tolerance 7: instructed in continued use of splint prn Skilled Intervention: Patient was educated in proper exercise technique and purpose for exercises. Skilled judgment was provided in selection of appropriate interventions. Tonie Pratt: Therapeutic Exercise (90934): 1:1 time:30 minutes (2 units: 23-37 m (more content not included)...[facility] [id number] NoteHNO ID: [id number] Author: Fatoumata Jarrett OT/Tera Service: ? Author Type: Occupational Therapist Type: Progress Notes Filed: 11/23/2020 10:12 AM Note Text: Episode Visit Count: 4 Therapist That Will Oversee The Plan Of Care: Darinel Ham Start of Care Date: 11/03/20 Onset Date: 10/07/20 Patient Identified by Name and Date of : Yes REHABILITATION AND SPORTS THERAPY OCCUPATIONAL THERAPY TREATMENT NOTE ASSESSMENT: Lidia Singh demonstrated difficulty with full strength and endurance. The patient will continue to benefit from continued skilled occupational therapy for education exercises and modalities PLAN FOR NEXT VISIT: reassess anticpate discharge SUBJECTIVE: pt reports he is doing really well denies pain still performing light duty at work minimal use of splint Pain: Pain Pain Level: 0 OBJECTIVE MEASURES WITH LEVEL OF FUNCTION: Hand Thumb AROM: Right Limitation UE AROM R Wrist Extension: 55 Degrees R Wrist Flexion: 40 Degrees R Wrist Radial Deviation: 25 Degrees R Wrist Ulnar Deviation: 25 Degrees Thumb AROM: Right Limitation Hand AROM R Thumb MP Flexion : 25 Degrees R Thumb IP Flexion : 59 Degrees R Thumb Radial Abduction: 70 Degrees R Thumb Palmar Abduction: 75 Degrees TREATMENT: Therapeutic Exercise: 1: wrist flex/ext deviation 2: tendon gliding 3: with 1# weight 4: instructed pt in further weaning self out of splint 5: educated in what splint should do Skilled Intervention: Patient was educated in proper exercise technique and purpose for exercises. Skilled judgment was provided in selection of appropriate interventions. Billing: Santa: Therapeutic Exercise ([id number]): 1:1 time:30 minutes (2 units: 23-37 mins) Total time / Length of visit: 30 minutes Fatoumata Jarrett OT/Mark [id number] NoteHNO ID: [id number] Author: Fatoumata Jarrett OT/Tera Service: ? Author Type: Occupational Therapist Type: Progress Notes Filed: 11/17/2020 1:48 PM Note Text: Episode Visit Count: 3 Therapist That Will Oversee The Plan Of Care: Darinel Ham Start of Care Date: 11/03/20 Onset Date: 10/07/20 Patient Identified by Name and Date of : Yes REHABILITATION AND SPORTS THERAPY OCCUPATIONAL THERAPY TREATMENT NOTE ASSESSMENT: Lidia Singh demonstrated difficulty with strength and endurance. The patient will continue to benefit from continued skilled occupational therapy for exercises modalities splinting and exercises PLAN FOR NEXT VISIT: additional putty and weight DC splint as able SUBJECTIVE: s/p CMC arthroplasty pt reports he has returned to work on light duty just supervisong Pain: OBJECTIVE MEASURES WITH LEVEL OF FUNCTION: Hand Strength: Rolling Mill Operator Helper Position 2;Pinch Meter Hand Strength R Rolling Mill Operator Helper Position 2 (lbs): 59 lbs L Rolling Mill Operator Helper Position 2 (lbs): 70 lbs R Lateral Pinch (lbs): 10 lbs R Tripod/ 3 Jaw Paul (lbs): 10 lbs L Lateral Pinch (lbs): 20 lbs L Tripod/ 3 Jaw Paul (lbs): 17 lbs TREATMENT: Therapeutic Exercise: 1: wrist flex/ext deviation 2: tendon gliding 3: thumb flex ext opposition radial and palmar abduction and circumduction 4: reduced splint o hand based 5: med soft putty it security project manager, digit flexion thumb flexion and digit ext abduction into flattened putty Skilled Intervention: Patient was educated in proper exercise technique and purpose for exercises. Reviewed and educated patient on additions/changes for splinting Modalities: Fluidotherapy Body Region Treated - Fluidotherapy: right hand Patient Position: seated Temperature: 101 Minute(s): 10 Activity 1: AROM Skilled Intervention: Proper administration and selection of modality based on clinical presentation, deficits, and needs. Patient response monitored throughout treatment. Billing: Pratt: Therapeutic Exercise ([id number]): 1:1 time:30 minutes (2 units: 23-37 mins) Fluidotherapy (46889) 1 unit(s) Total time / Length of visit: 40 minutes Fatoumata Jarrett OT/Mark [id number] NoteHNO ID: [id number] Author: Fatoumata Jarrett OT/Tera Service: ? Author Type: Occupational Therapist Type: Progress Notes Filed: 11/12/2020 10:16 AM Note Text: Episode Visit Count: 2 Therapist That Will Oversee The Plan Of Care: Darinel Ham Start of Care Date: 11/03/20 Onset Date: 10/07/20 Patient Identified by Name and Date of : Yes REHABILITATION AND SPORTS THERAPY OCCUPATIONAL THERAPY TREATMENT NOTE ASSESSMENT: Lidia Singh demonstrated difficulty with strength improved in AROM . The patient will continue to benefit from continued skilled occupational therapy for exercises splinting PLAN FOR NEXT VISIT: reduce splint to hand based pinch pins and velcro checkers SUBJECTIVE: s/p CMC arthroplasty pt reports he has returned to work on light duty just supervisong Pain: Pain Pain Level: 1 OBJECTIVE MEASURES WITH LEVEL OF FUNCTION: Hand Wrist AROM: Right Limitation Thumb AROM: Right Limitation UE AROM R Wrist Extension: 50 Degrees R Wrist Flexion: 42 Degrees Thumb AROM: Right Limitation Hand AROM R Thumb MP Flexion : 28 Degrees R Thumb IP Flexion : 49 Degrees R Thumb Radial Abduction: 65 Degrees R Thumb Palmar Abduction: 75 Degrees TREATMENT: Therapeutic Exercise: 1: wrist flex/ext deviation 2: tendon gliding 3: thumb flex ext opposition radial and palmar abduction and circumduction 4: soft sponge it security project manager, manuipulate and metal pickling equipment operator 5: medium sponge pieces metal pickling equipment operator 6: medium pegs in and out 7: notched peg board 8: scar massage Skilled Intervention: Patient was educated in proper exercise technique and purpose for exercises. Skilled judgment was provided in selection of appropriate interventions. Provided written instruction for home exercise program to facilitate proper performance and compliance. Modalities: Fluidotherapy Patient Position: right hand Temperature: 102 Minute(s): 10 Activity 1: AROM Skilled Intervention: Proper administration and selection of modality based on clinical presentation, deficits, and needs. Patient response monitored throughout treatment. Billing: Pratt: Therapeutic Exercise ([id number]): 1:1 time:30 minutes (2 units: 23-37 mins) Fluidotherapy (49531) 1 unit(s) Total time / Length of visit: 40 minutes Fatoumata Jarrett OT/TimmyAultman Alliance Community [id number] NoteHNO ID: [id number] Author: Fatoumata Jarrett OT/L Service: ? Author Type: Occupational Therapist Type: Progress Notes Filed: 11/04/2020 1:27 PM Note Text: Episode Visit Count: 1 Therapist That Will Oversee The Plan Of Care: Darinel Ham Start of Care Date: 11/03/20 Onset Date: 10/07/20 Patient Identified by Name and Date of : Yes [facility] REHABILITATION AND SPORTS THERAPY OCCUPATIONAL THERAPY EVALUATION PLAN OF CARE: Assessment: Lidia Singh presents with the diagnosis of s/p CMC arthroplasty. He presents with impairments of AROM edema. He may benefit from skilled occupational therapy services to improve function so pt can return to work. Prognosis: Good Good due to: current objective clinical presentation Goals for Episode of Care created on 11/03/20 through 01/03/21 Patient will report a good understanding of diagnosis and OT recommendations for progression of program. Patient will demonstrate independence with ongoing home recommendations/exercise program throughout therapy plan of care. Patient will independently demonstrate correct application of CUSTOM orthosis and verbalize understanding of proper wear/care. Patient will report a good understanding of edema control, scar / wound management throughout therapy plan of care to promote non-adherent / non-tender soft tissue. 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 The above goals and plan of care were discussed and agreed upon by patient/family. 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 5 points is clinically meaningfully difference Percentiles provide an indication of how the patient's score ranks in relation to the general population. Higher percentile rankings indicate better function/quality of life. 50th percentile is the average of the general population and indicates half of respondents had a worse score. T-scores: mean of general population = 50. 5 points is clinically meaningfully difference Percentiles provide an indication of how the patient's score ranks in relation to the general population. Higher percentile rankings indicate better function/quality of life. 50th percentile is the average of the general population and indicates half of respondents had a worse score. OBJECTIVE MEASURES WITH LEVEL OF FUNCTION: Hand Skin / Wound: Scar Scar: Tender;Mild adherance Edema Location: right hand Edema Description: Moderate Edema Measurements: Wrist (DWC) (cm);Digits R Wrist (DWC) (cm): 16.2 L Wrist (DWC) (cm): 15.2 Edema - Digits: Thumb R Thumb P1 (cm): 7.2 cm L Thumb IP Joint (cm): 6.7 cm Wrist AROM: Right Limitation Right Hand AROM: All Digits Thumb AROM: Right Limitation Sensation: Reports tingling or numbness (in DRSN distribution) Provocative Testing: Tinel's Tinel's Sign: Right positive UE AROM R Wrist Extension: 40 Degrees R Wrist Flexion: 30 Degrees R Wrist Radial Deviation: 20 Degrees R Wrist Ulnar Deviation: 15 Degrees Right Hand AROM: All Digits Thumb AROM: Right Limitation Hand AROM R Index Finger MP Extension: -22 Degrees R Index Finger MP Flexion: 65 Degrees R Index Finger PIP Extension : -15 Degrees R Index Finger PIP Flexion: 72 Degrees R Index Finger DIP Extension : -27 Degrees R Index Finger DIP Flexion: 52 Degrees Right Index Finger Total Active Movement: 125 R Middle Finger MP Extension : -9 Degrees R Middle Finger MP Flexion : 70 Degrees R Middle Finger PIP Extension: -4 Degrees R Middle Finger PIP Flexion : 86 Degrees R Middle Finger DIP Extension : -16 Degrees R Middle Finger DIP Flexion : 46 Degrees Right Middle Finger Total Active Movement: 173 R Ring Finger MP Extension : -19 Degrees R Ring Finger MP Flexion : 72 Degrees R Ring F (more content not included)...[facility] [id number] NoteHNO ID: [id number] Author: KAYLA Dwyer Service: Radiology Author Type: Clinical Government Operations Consultant Type: Progress Notes Filed: 11/03/2020 10:01 AM Note Text: Radiology Service Progress Note PATIENT NAME: Lidia Singh DATE OF SERVICE: November 03, 2020 TIME: 10:00 AM PATIENT IDENTITY VERIFICATION COMPLETED USING TWO (2) IDENTIFIERS: Name and Date of confirmed by patient verbally. FALL SCREENING: Has the patient had 2 falls in the last year or 1 fall with injury or currently using an Ambulatory Assistive Device (Walker, Cane, Wheelchair, Crutches, etc.)? No PATIENT GENDER DATA: Male PATIENT RELEVANT IMPLANT DATA REVIEWED: Not Applicable RADIOLOGY DEPARTMENT: General X-ray: Exam(s) Completed: Upper Extremity X-Ray(s): Hand, right PERIPHERAL IV DATA: Not applicable SIGNED BY: KAYLA Dwyer November 03, 2020 10:00 AMAkron [facility] [id number] NoteHNO ID: [id number] Author: Timoteo (Rn) LUCERO Roman Service: Nursing Author Type: Registered Nurse Type: Nursing Progress Note Filed: 10/07/2020 8:20 AM Note Text: [id number] History of Past illness Narrative* Problem Noted Date Resolved Date Atypical nevi 02/04/2016 02/04/2017 Multiple benign nevi 02/04/2016 02/04/2017 Lentigines 02/04/2016 02/04/2017 Seborrheic keratosis 02/04/2016 02/04/2017 Malignant melanoma of skin of trunk, except scro adriana 11/25/2015 02/04/2017 Carpal tunnel syndrome 06/01/2010 7 Embolism and thrombosis of unspecified site 04/0 07/200712/17/2008 Overview: Right calf Abdominal pain, right lower quadrant 12/14/2006 12/17/2008 Other tenosynovitis of hand and wrist 11/07/2005 02/04/2017 Benign neoplasm of colon 05/27/2005 017 documented as of this encounter (statuses as of 09/14/2021) [facility] History of Past illness Narrative* Problem Noted Date Resolved Date Atypical nevi 02/04/2016 02/04/2017 Multiple benign nevi 02/04/2016 02/04/2017 Lentigines 02/04/2016 02/04/2017 Seborrheic keratosis 02/04/2016 02/04/2017 Malignant melanoma of skin of trunk, except scro adriana 11/25/2015 02/04/2017 Carpal tunnel syndrome 06/01/2010 7 Embolism and thrombosis of unspecified site 04/0 07/200712/17/2008 Overview: Right calf Abdominal pain, right lower quadrant 12/14/2006 12/17/2008 Other tenosynovitis of hand and wrist 11/07/2005 02/04/2017 Benign neoplasm of colon 05/27/2005 017 documented as of this encounter (statuses as of 10/06/2021) [facility] History of Past illness Narrative* Problem Noted Date Resolved Date Atypical nevi 02/04/2016 02/04/2017 Multiple benign nevi 02/04/2016 02/04/2017 Lentigines 02/04/2016 02/04/2017 Seborrheic keratosis 02/04/2016 02/04/2017 Malignant melanoma of skin of trunk, except scro adriana 11/25/2015 02/04/2017 Carpal tunnel syndrome 06/01/2010 7 Embolism and thrombosis of unspecified site 04/0 07/200712/17/2008 Overview: Right calf Abdominal pain, right lower quadrant 12/14/2006 12/17/2008 Other tenosynovitis of hand and wrist 11/07/2005 02/04/2017 Benign neoplasm of colon 05/27/2005 017 documented as of this encounter (statuses as of 10/23/2021) [facility] History of Past illness Narrative* Problem Noted Date Resolved Date Atypical nevi 02/04/2016 02/04/2017 Multiple benign nevi 02/04/2016 02/04/2017 Lentigines 02/04/2016 02/04/2017 Seborrheic keratosis 02/04/2016 02/04/2017 Malignant melanoma of skin of trunk, except scro adriana 11/25/2015 02/04/2017 Carpal tunnel syndrome 06/01/2010 7 Embolism and thrombosis of unspecified site 04/0 07/200712/17/2008 Overview: Right calf Abdominal pain, right lower quadrant 12/14/2006 12/17/2008 Other tenosynovitis of hand and wrist 11/07/2005 02/04/2017 Benign neoplasm of colon 05/27/2005 017 documented as of this encounter (statuses as of 04/18/2022) [facility] History of Past illness Narrative* Problem Noted Date Resolved Date Atypical nevi 02/04/2016 02/04/2017 Multiple benign nevi 02/04/2016 02/04/2017 Lentigines 02/04/2016 02/04/2017 Seborrheic keratosis 02/04/2016 02/04/2017 Malignant melanoma of skin of trunk, except scro adriana 11/25/2015 02/04/2017 Carpal tunnel syndrome 06/01/2010 7 Embolism and thrombosis of unspecified site 07/200712/17/2008 Overview: Right calf Abdominal pain, right lower quadrant 12/14/2006 12/17/2008 Other tenosynovitis of hand and wrist 11/07/2005 02/04/2017 Benign neoplasm of colon 05/27/2005 017 documented as of this encounter (statuses as of 06/25/2022) [facility] Appointment Date:08/20/2021 01:20:00 PM Scheduled Provider:ADARSH TELLES MD Location:UROLOGY Appointment Type:URO OV Appointment Date:09/29/2021 04:30:00 PM Scheduled Provider:JESSICA STANFORD Location:[facility] Appointment Type:PC OV Future Scheduled Tests Laboratory* Prostate Specific Antigen 08/17/21 [facility] Evaluation + Plan note Future Appointments Appointment Date:09/13/2021 02:10:00 PM Scheduled Provider:ADARSH TELLES MD Location:UROLOGY Appointment Type:URO OV Appointment Date:09/29/2021 04:30:00 PM Scheduled Provider:JESSICA STANFORD Location:[facility] Appointment Type:PC OV Future Scheduled Tests Laboratory* Lipid Profile 05/25/21 * Complete Metabolic Panel 05/25/21 Radiology* CT Low Dose Lung Cancer Screening (LDCT) 05/21/22 [facility] Evaluation + Plan note Future Appointments Appointment Date:09/29/2021 04:30:00 PM Scheduled Provider:JESSICA STANFORD Location:[facility] Appointment Type:PC OV Appointment Date:03/16/2022 01:40:00 PM Scheduled Provider:ADARSH TELLES MD Location:UROLOGY Appointment Type:URO OV Future Scheduled Tests Laboratory* Prostate Specific Antigen 03/16/22 * Lipid Profile 05/25/21 * Complete Metabolic Panel 05/25/21 Radiology* CT Low Dose Lung Cancer Screening (LDCT) 05/21/22 [facility] Evaluation + Plan note Future Appointments Appointment Date:09/29/2021 04:30:00 PM Scheduled Provider:JESSICA STANFORD Location:[facility] Appointment Type:PC OV Appointment Date:03/16/2022 01:40:00 PM Scheduled Provider:ADARSH TELLES MD Location:UROLOGY Appointment Type:URO OV Future Scheduled Tests Laboratory* Prostate Specific Antigen 03/16/22 Radiology* CT Low Dose Lung Cancer Screening (LDCT) 05/21/22 [facility] Ultoraaluation + Plan note Future Appointments Appointment Date:03/28/2022 02:50:00 PM Scheduled Provider:ADARSH TELLES MD Location:UROLOGY Appointment Type:URO OV Appointment Date:05/03/2022 11:30:00 AM Scheduled Provider:JESSICA STANFORD Location:[facility] Appointment Type:PC Wellness Medicare Future Scheduled Tests Radiology* CT Low Dose Lung Cancer Screening (LDCT) 05/21/22 [facility] Evaluation + Plan note Future Appointments Appointment Date:09/28/2022 01:00:00 PM Scheduled Provider:ADARSH TELLES MD Location:UROLOGY Appointment Type:URO OV Future Scheduled Tests Laboratory* Prostate Specific Antigen 09/26/22 * Lipid Profile 09/01/22 * Hepatitis C Antibody IgG 09/01/22 Radiology* CT Low Dose Lung Cancer Screening (LDCT) 12/18/22 * CT Low Dose Lung Cancer Screening (LDCT) 06/14/22 [facility] evaluation + Plan note Future Appointments Appointment Date:09/16/2022 02:30:00 PM Scheduled Provider:JESSICA STANFORD Location:[facility] Appointment Type:PC OV Future Scheduled Tests Laboratory* Prostate Specific Antigen 09/26/22 * Lipid Profile 09/01/22 * Hepatitis C Antibody IgG 09/01/22 Radiology* CT Low Dose Lung Cancer Screening (LDCT) 12/18/22 * CT Low Dose Lung Cancer Screening (LDCT) 06/14/22 [facility] Evaluation + Plan note Future Appointments Appointment Date:12/16/2022 02:30:00 PM Scheduled Provider:JESSICA STANFORD Location:[facility] Appointment Type:PC OV Future Scheduled Tests Laboratory* Prostate Specific Antigen 09/26/22 * Lipid Profile 09/01/22 * Hepatitis C Antibody IgG 09/01/22 * Albumin/Creatinine Ratio, Random Urine 09/16/22 Radiology* CT Low Dose Lung Cancer Screening (LDCT) 12/18/22 * CT Low Dose Lung Cancer Screening (LDCT) 06/14/22 [facility] Evaluation + Plan note Future Appointments Appointment Date:05/05/2023 03:30:00 PM Scheduled Provider:JESSICA STANFORD Location:[facility] Appointment Type:PC Wellness Medicare Appointment Date:06/23/2023 03:30:00 PM Scheduled Provider:JESSICA STANFORD Location:[facility] Appointment Type:PC OV Future Scheduled Tests Laboratory* Lipid Profile 09/01/22 * Hepatitis C Antibody IgG 09/01/22 * Albumin/Creatinine Ratio, Random Urine 09/16/22 Radiology* CT Low Dose Lung Cancer Screening (LDCT) 12/21/22 * CT Low Dose Lung Cancer Screening (LDCT) 06/14/22 [facility] Evaluation + Plan note Future Appointments Appointment Date:12/29/2023 02:00:00 PM Scheduled Provider:JESSICA STANFORD Location:[facility] Appointment Type: OV Future Scheduled Tests Radiology* CT Low Dose Lung Cancer Screening (LDCT) 12/21/22 [facility] Ultoraaluation + Plan note Future Appointments Appointment Date:07/03/2024 03:00:00 PM Scheduled Provider:JESSICA STANFORD Location:[facility] Appointment Type:PC Wellness Medicare [facility] Evaluation + Plan note Future Appointments Appointment Date:01/03/2025 04:00:00 PM Scheduled Provider:JESSICA STANFORD Location:[facility] Appointment Type: OV Future Scheduled Tests Laboratory* Albumin/Creatinine Ratio, Random Urine 07/03/24 [facility] Evaluation note* Diagnosis 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, bilateral legs (HCC) documented in this encounter [facility] Work Phone: Evaluation note* Diagnosis Seborrheic keratoses- Primary Other seborrheic keratosis Solar lentigo Other dyschromia Multiple benign nevi Benign neoplasm of skin, site unspecified History of melanoma Personal history of malignant melanoma of skin [facility] Acute otitis media, left- Primary Unspecified otitis media [facility] Diagnosis 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, bilateral legs (HCC) documented in this encounter [facility] Work Phone: Evaluation note* Diagnosis 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, bilateral legs (HCC) documented in this encounter [facility] Work Phone: Evaluation note* Diagnosis Trochanteric bursitis of right hip- Primary Enthesopathy of hip region Hip pain Pain in joint, pelvic region and thigh [facility] Diagnosis Acute otitis media, left- Primary Unspecified otitis media [facility]* Diagnosis 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, bilateral legs (HCC) [facility] 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, bilateral legs (HCC)- Primary [facility]* Diagnosis 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, bilateral legs (HCC)- Primary [facility] noteNo assessment information availableWCleveland [facility] Work Phone: Evaluation note* Diagnosis 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, bilateral legs (HCC) [facility]* Diagnosis 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, bilateral legs (HCC)- Primary Aftercare following surgery of the circulatory system Aftercare following surgery of the circulatory system, NEC Pre-procedure lab exam Pre-procedural laboratory examination [facility] this [facility]* Diagnosis 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, bilateral legs (HCC) Aftercare following surgery of the circulatory system Aftercare following surgery of the circulatory system, NEC [facility]* Diagnosis 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, bilateral legs (HCC)- Primary [facility]* Diagnosis 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, bilateral legs (HCC)- Primary [facility]* Diagnosis 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, bilateral legs (HCC)- Primary documented [facility]* Diagnosis 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, bilateral legs (HCC)- Primary [facility]* Diagnosis 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, bilateral legs (HCC) [facility]* Diagnosis 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, bilateral legs (HCC)- Primary 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, bilateral legs (HCC) documented [facility] this [facility]* Diagnosis Pre-op chest exam- Primary Pre-operative respiratory examination documented in this encounter [facility] note* Diagnosis Pre-operative examination- Primary Preoperative examination, unspecified Localized osteoarthritis of hand, unspecified laterality Essential hypertension, benign Mixed hyperlipidemia PAD (peripheral artery disease) (HCC) Peripheral vascular disease, unspecified Tobacco use disorder Postlaminectomy syndrome Postlaminectomy syndrome, unspecified region Melanoma of back (HCC) Malignant melanoma of skin of trunk, except scrotum History of colonic diverticulitis Personal history of other diseases of digestive system Shortness of breath- Primary Pre-op chest exam Pre-operative respiratory examination documented in this encounter [facility] note* Diagnosis Pre-operative examination- Primary Preoperative examination, unspecified Localized osteoarthritis of hand, unspecified laterality Essential hypertension, benign Mixed hyperlipidemia PAD (peripheral artery disease) (HCC) Peripheral vascular disease, unspecified Tobacco use disorder Postlaminectomy syndrome Postlaminectomy syndrome, unspecified region Melanoma of back (HCC) Malignant melanoma of skin of trunk, except scrotum History of colonic diverticulitis Personal history of other diseases of digestive system Shortness of breath- Primary Pre-op chest exam Pre-operative respiratory examination [facility]* Diagnosis Pre-operative examination- Primary Preoperative examination, unspecified Localized osteoarthritis of hand, unspecified laterality Essential hypertension, benign Mixed hyperlipidemia PAD (peripheral artery disease) (HCC) Peripheral vascular disease, unspecified Tobacco use disorder Postlaminectomy syndrome Postlaminectomy syndrome, unspecified region Melanoma of back (HCC) Malignant melanoma of skin of trunk, except scrotum History of colonic diverticulitis Personal history of other diseases of digestive system Shortness of breath- Primary Pre-op chest exam Pre-operative respiratory examination [facility]* Diagnosis Pre-operative examination- Primary Preoperative examination, unspecified Localized osteoarthritis of hand, unspecified laterality Essential hypertension, benign Mixed hyperlipidemia PAD (peripheral artery disease) (HCC) Peripheral vascular disease, unspecified Tobacco use disorder Postlaminectomy syndrome Postlaminectomy syndrome, unspecified region Melanoma of back (HCC) Malignant melanoma of skin of trunk, except scrotum History of colonic diverticulitis Personal history of other diseases of digestive system Nodule of upper lobe of right lung- Primary Former smoker Personal history of tobacco use, presenting hazards to health [facility]* Diagnosis Pre-operative examination- Primary Preoperative examination, unspecified Localized osteoarthritis of hand, unspecified laterality Essential hypertension, benign Mixed hyperlipidemia PAD (peripheral artery disease) (HCC) Peripheral vascular disease, unspecified Tobacco use disorder Postlaminectomy syndrome Postlaminectomy syndrome, unspecified region Melanoma of back (HCC) Malignant melanoma of skin of trunk, except scrotum History of colonic diverticulitis Personal history of other diseases of digestive system Acute left-sided low back pain without sciatica [facility]* Diagnosis Pre-operative examination- Primary Preoperative examination, unspecified Localized osteoarthritis of hand, unspecified laterality Essential hypertension, benign Mixed hyperlipidemia PAD (peripheral artery disease) (HCC) Peripheral vascular disease, unspecified Tobacco use disorder Postlaminectomy syndrome Postlaminectomy syndrome, unspecified region Melanoma of back (HCC) Malignant melanoma of skin of trunk, except scrotum History of colonic diverticulitis Personal history of other diseases of digestive system Pain in right hip Pain in joint, pelvic region and thigh [facility]* Diagnosis Pre-operative examination- Primary Preoperative examination, unspecified Localized osteoarthritis of hand, unspecified laterality Essential hypertension, benign Mixed hyperlipidemia PAD (peripheral artery disease) (HCC) Peripheral vascular disease, unspecified Tobacco use disorder Postlaminectomy syndrome Postlaminectomy syndrome, unspecified region Melanoma of back (HCC) Malignant melanoma of skin of trunk, except scrotum History of colonic diverticulitis Personal history of other diseases of digestive system Right upper lobe pulmonary nodule- Primary documented in this encounter [facility] note* Diagnosis Pre-operative examination- Primary Preoperative examination, unspecified Localized osteoarthritis of hand, unspecified laterality Essential hypertension, benign Mixed hyperlipidemia PAD (peripheral artery disease) (HCC) Peripheral vascular disease, unspecified Tobacco use disorder Postlaminectomy syndrome Postlaminectomy syndrome, unspecified region Melanoma of back (HCC) Malignant melanoma of skin of trunk, except scrotum History of colonic diverticulitis Personal history of other diseases of digestive system Right upper lobe pulmonary nodule- Primary documented in this encounter [facility] note* Diagnosis Pre-operative examination- Primary Preoperative examination, unspecified Localized osteoarthritis of hand, unspecified laterality Essential hypertension, benign Mixed hyperlipidemia PAD (peripheral artery disease) (HCC) Peripheral vascular disease, unspecified Tobacco use disorder Postlaminectomy syndrome Postlaminectomy syndrome, unspecified region Melanoma of back (HCC) Malignant melanoma of skin of trunk, except scrotum History of colonic diverticulitis Personal history of other diseases of digestive system Right upper lobe pulmonary nodule documented in this encounter [facility] note* Diagnosis 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, bilateral legs (HCC)- Primary 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, bilateral legs (HCC) documented in this encounter [facility] note* Diagnosis 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, bilateral legs (HCC) documented [facility]* Diagnosis 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, bilateral legs (HCC)- Primary documented in this encounter [facility] note* Diagnosis Pre-operative examination- Primary Preoperative examination, unspecified Localized osteoarthritis of hand, unspecified laterality Essential hypertension, benign Mixed hyperlipidemia PAD (peripheral artery disease) (HCC) Peripheral vascular disease, unspecified Tobacco use disorder Postlaminectomy syndrome Postlaminectomy syndrome, unspecified region Melanoma of back (HCC) Malignant melanoma of skin of trunk, except scrotum History of colonic diverticulitis Personal history of other diseases of digestive system Right upper lobe pulmonary nodule documented in this encounter [facility] note* Diagnosis Pre-operative examination- Primary Preoperative examination, unspecified Localized osteoarthritis of hand, unspecified laterality Essential hypertension, benign Mixed hyperlipidemia PAD (peripheral artery disease) (HCC) Peripheral vascular disease, unspecified Tobacco use disorder Postlaminectomy syndrome Postlaminectomy syndrome, unspecified region Melanoma of back (HCC) Malignant melanoma of skin of trunk, except scrotum History of colonic diverticulitis Personal history of other diseases of digestive system Right upper lobe pulmonary nodule- Primary documented in this encounter [facility] note* Diagnosis Onset Date Resolution Status Admit Date Anemia acute November 12, 2024 12:26pm History of malignant melanom a of back chronic November 12, 2024 1 2:26pm History of prostate cancer chronic November 12, 2024 12:26pm [facility] [employer] Work Phone: Evaluation note* Diagnosis Pre-operative examination- Primary Preoperative examination, unspecified Localized osteoarthritis of hand, unspecified laterality Essential hypertension, benign Mixed hyperlipidemia PAD (peripheral artery disease) Peripheral vascular disease, unspecified Tobacco use disorder Postlaminectomy syndrome Postlaminectomy syndrome, unspecified region Melanoma of back (HCC) Malignant melanoma of skin of trunk, except scrotum History of colonic diverticulitis Personal history of other diseases of digestive system Right upper lobe pulmonary nodule documented in this encounter [facility] note* Diagnosis Pre-operative examination- Primary Preoperative examination, unspecified Localized osteoarthritis of hand, unspecified laterality Essential hypertension, benign Mixed hyperlipidemia PAD (peripheral artery disease) Peripheral vascular disease, unspecified Tobacco use disorder Postlaminectomy syndrome Postlaminectomy syndrome, unspecified region Melanoma of back (HCC) Malignant melanoma of skin of trunk, except scrotum History of colonic diverticulitis Personal history of other diseases of digestive system Multiple lung nodules- Primary Other nonspecific abnormal finding of lung field [facility] 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, bilateral legs (HCC)- Primary Aftercare following surgery of the circulatory system Aftercare following surgery of the circulatory system, NEC [facility] 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, bilateral legs- Primary [facility] Narrative No data available for this section [facility] Discharge instructions No data available for this section [facility] Discharge instructions Additional Instructions At this point I would recommend discontinuing the nasal spray in case that has potentially led to the nosebleed. As we discussed your nose may start bleeding again. If you are unable to get it stopped please return to the emergency room.[facility] Work Phone: Progress note No data available for this section [facility] Reason for referral (narrative)* Outpatient Procedure (Routine) - New Request Specialty Diagnoses / Procedures Referred By Naila crawford Referred To Contact [facility] Diagnoses Pre-op chest exam Procedures LUNG DIFFUSION CAPACITY (DLCO) DIFFUSING CAPACITY Michael Curran MD [address] [place] [address] [address] Referral ID Status Reason Start Date Expiration Date Visits Requested Visits Authorized [id number] New Request Auto-Generat ed Referral 01/26/2024 02/24/2025 1 1 * Outpatient Procedure (Routine) - New Request Specialty Diagnoses / Procedures Referred By Naila crawfodr Referred To Contact [facility] Diagnoses Pre-op chest exam Procedures SIX MINUTE WALK CARDIOPULMONARY EXERCISE STRESS Michael Curran MD [address] [place] [address] Respiratory [place] [id number] Referral ID Status Reason Start Date Expiration Date Visits Requested Visits Authorized [id number] New Request Auto-Generat ed Referral 01/26/2024 02/24/2025 1 1 * Outpatient Procedure (Routine) - New Request Specialty Diagnoses / Procedures Referred By Contac t Referred To Contact [facility] Diagnoses Pre-op chest exam Procedures LUNG VOLUMES Michael Curran MD [address] [place] [address] Respiratory [place] [address] [place], [place] [id number] Referral ID Status Reason Start Date Expiration Date Visits Requested Visits Authorized [id number] New Request Auto-Generat ed Referral 01/26/2024 02/24/2025 1 1 * Outpatient Procedure (Routine) - New Request Specialty Diagnoses / Procedures Referred By Contac t Referred To Contact [facility] Diagnoses Pre-op chest exam Procedures SPIROMETRY WITH DILATOR IF OBSTRUCTED BRNCDILAT RSPSE SPMTRY PRE&POST-BRNCDILAT ADMN Michael Curran MD [address] [place] [address] Respiratory [place] [address] [place] [address] Referral ID Status Reason Start Date Expiration Date Visits Requested Visits Authorized [id number] New Request Auto-Generat ed Referral 01/26/2024 02/24/2025 1 1 [facility] for referral (narrative)* Diagnostic Procedure Only (Urgent) - Closed Specialty Diagnoses / Procedures Referred By Contac t Referred To Contact XR IMAGING Diagnoses Acute left-sided low back pain without sciatica Procedures XR LUMBAR GENERAL 3V AP/LAT/L5-S1 RADEX SPINE LUMBOSACRAL 2/3 VIEWS Cherelle Tena, PA-C [address] [place] [address] Xr Imaging [id number] Referral ID Status Reason Start Date Expiration Date V isits Requested Visits Authorized [id number] Closed Auto-Generate d Referral 03/14/2023 04/12/2024 1 1 [facility] for referral (narrative)* Diagnostic Procedure Only (Routine) - Closed Specialty Diagnoses / Procedures Referred By Contac t Referred To Contact XR IMAGING Diagnoses Pain in right hip Procedures XR HIP GENERAL 3V PELV/AP/LAT RIGHT RADEX HIP UNILATERAL WITH PELVIS 2-3 VIEWS Dipesh Barcenas MD [address] [place] [address] [place] [address] Referral ID Status Reason Start Date Expiration Date V isits Requested Visits Authorized [id number] Closed Auto-Generate d Referral 04/13/2022 05/13/2023 1 1 [facility] for referral (narrative)No reason for referral information [facility]WC[facility]: [facility] N[facility]* Diagnostic Procedure Only (Urgent) - Closed Specialty Diagnoses / Procedures Referred By Contac t Referred To Contact XR IMAGING Diagnoses Acute left-sided low back pain without sciatica Procedures XR LUMBAR GENERAL 3V AP/LAT/L5-S1 RADEX SPINE LUMBOSACRAL 2/3 VIEWS Cherelle Tena PA-C [address] [place] [address] [place] [address] Referral ID Status Reason Start Date Expiration Date V isits Requested Visits Authorized [id number] Closed Auto-Generate d Referral 03/14/2023 04/12/2024 1 1 [facility] for visit Narrative* Diagnostic Procedure Only (Routine) - Closed Specialty Diagnoses / Procedures Referred By Contac t Referred To Contact XR IMAGING Diagnoses Pain in right hip Procedures XR HIP GENERAL 3V PELV/AP/LAT RIGHT RADEX HIP UNILATERAL WITH PELVIS 2-3 VIEWS Dipesh Barcenas MD [address] [place] [address] [place] [address] Referral ID Status Reason Start Date Expiration Date V isits Requested Visits Authorized [id number] Closed Auto-Generate d Referral 04/13/2022 05/13/2023 1 1 [facility] for visit Narrative* Imaging (Routine) - Closed Specialty Diagnoses / Procedures Referred By Contac t Referred To Contact Cardiology Diagnoses 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, bilateral legs (HCC) Procedures Vascular US lower extremity arterial duplex graft bilateral with RIMMA Ta Dover MD [address] [place] [address] Phone: tel: fax: Referral ID Status Reason Start Date Expiration Date Visits Re quested Visits Authorized [id number] Closed 01/19/2024 01/18/2025 1 1 [facility] for visit Narrative* MRI/CT (Routine) - Closed Specialty Diagnoses / Procedures Referred By Contac t Referred To Contact CT IMAGING Diagnoses Right upper lobe pulmonary nodule Procedures CT CHEST WO IVCON DIAGNOSTIC COMPUTED TOMOGRAPHY THORAX W/O Gilbert Negrete MD [address] [place] [address] Phone: tel: fax: [facility] [place] [address] Referral ID Status Reason Start Date Expiration Date V isits Requested Visits Authorized [id number] Closed Auto-Generate d Referral 10/30/2024 09/01/2025 1 1 [facility] for visit Narrative* Imaging (Routine) - Closed Specialty Diagnoses / Procedures Referred By Contac t Referred To Contact Vascular Surgery / Radiology Diagnoses 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, bilateral legs (HCC) Procedures Vascular US lower extremity arterial duplex graft bilateral with RIMMA Krystin Grey PA-C [address] [place] [address] Phone: tel: fax: [facility] US Imaging [address] [place] [phone] Phone: tel: fax: Referral ID Status Reason Start Date Expiration Date Visits Re quested Visits Authorized [id number] Closed 07/23/2024 07/23/2025 1 1 [facility] Reason for Referral Status Reason Specialty Diagnoses / Procedures Referre d By Contact Referred To Contact Open Radiology Diagnoses 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, bilateral legs (HCC) Procedures VL Lower Extremity Arteries Bilateral Ta Dover MD [address] [facility] [address] [place] [address] Referral ID Status Reason Start Date Expiration Date Visits Re quested Visits Authorized [id number] Open 12/12/2021 12/12/2022 1 1 Specialty Diagnoses / Procedures Referred By Contac t Referred To Contact [facility] Diagnoses Trochanteric bursitis of right hip Hip pain Procedures CONSULT TO PHYSICAL THERAPY PHYSICAL THERAPY EVALUATION HIGH COMPLEX 45 MINS Dipesh Barcenas MD [address] [place] [address] [facility] [place] [address] [place] [id number] Referral ID Status Reason Start Date Expiration Date Visits Requested Visits Authorized [id number] Pending Review Auto-Generat ed Referral 2 04/18/2023 1 1 Specialty Diagnoses / Procedures Referred By Contac t Referred To Contact Cardiology Diagnoses 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, bilateral legs (HCC) Procedures Vascular US lower extremity arterial duplex graft bilateral with RIMMA Krystin Tejada PA-C [address] [place] [address] [facility] Non-Invasive Cardiology [address] [place] [address] Referral ID Status Reason Start Date Expiration Date V isits Requested Visits Authorized [id number] Closed Perform Procedure 05/11/2022 11/07/2022 1 1 Specialty Diagnoses / Procedures Referred By Contac t Referred To Contact Cardiology Diagnoses 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, bilateral legs (HCC) Procedures Vascular US lower extremity arterial duplex graft bilateral with RIMMA Krystin Tjeada, PA-C [address] [place] [address] Referral ID Status Reason Start Date Expiration Date Visits Requested Visits Authorized [id number] Pending Review Perform Procedure 10/26/2022 04/24/2023 1 1 Specialty Diagnoses / Procedures Referred By Contac t Referred To Contact Cardiology Diagnoses 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, bilateral legs (HCC) Procedures Vascular US lower extremity arterial duplex graft bilateral with RIMMA Krystin Tejada, PA-C [address] [place] [address] [facility] Non-Invasive Cardiology [address] [place] [phone] Referral ID Status Reason Start Date Expiration Date V isits Requested Visits Authorized [id number] Closed Perform Procedure 10/26/2022 04/24/2024 1 1 Specialty Diagnoses / Procedures Referred By Contac t Referred To Contact Radiology Diagnoses 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, bilateral legs (HCC) Aftercare following surgery of the circulatory system Procedures CTA aorta BL iliofemoral runoff w Jana Soto APRN - [employer] [address] [place] [phone] Referral ID Status Reason Start Date Expiration Date V isits Requested Visits Authorized [id number] Pending Review 11/16/2023 11/15/2024 1 1 Specialty Diagnoses / Procedures Referred By Contac t Referred To Contact Radiology Diagnoses 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, bilateral legs (HCC) Aftercare following surgery of the circulatory system Procedures CTA aorta BL iliofemoral runoff w Jana Soto, VOICE INSTRUCTOR - [employer]SEMBLER [address] [place] [address] [place] [address] Referral ID Status Reason Start Date Expiration Date Visits Re quested Visits Authorized [id number] Closed 11/16/2023 11/15/2024 1 1 Specialty Diagnoses / Procedures Referred By Contac t Referred To Contact Cardiology Diagnoses 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, bilateral legs (HCC) Procedures Vascular US lower extremity arterial duplex left with RIMMA Ta Dover MD [address] [place] [address] Referral ID Status Reason Start Date Expiration Date V isits Requested Visits Authorized [id number] Pending Review 01/17/2024 01/16/2025 1 1 Referral ID Status Reason Start Date Expiration Date Visits Re quested Visits Authorized [id number] Closed 01/17/2024 01/16/2025 1 1 Specialty Diagnoses / Procedures Referred By Contac t Referred To Contact Cardiology Diagnoses 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, bilateral legs (HCC) Procedures Vascular US lower extremity arterial duplex graft bilateral with RIMMA Ta Dover MD [address] [place] [phone] Referral ID Status Reason Start Date Expiration Date V isits Requested Visits Authorized [id number] Pending Review 01/19/2024 01/18/2025 1 1 Specialty Diagnoses / Procedures Referred By Contac t Referred To Contact CT IMAGING Diagnoses Right upper lobe pulmonary nodule Procedures CT CHEST WO IVCON DIAGNOSTIC COMPUTED TOMOGRAPHY THORAX W/O Gilbert Negrete MD [address] [place] [address] [place] [address] Referral ID Status Reason Start Date Expiration Date Visits Requested Visits Authorized [id number] New Request Auto-Generat ed Referral 03/14/2024 04/13/2025 1 1 Referral ID Status Reason Start Date Expiration Date Visits Requested Visits Authorized [id number] Authorized Auto-Generat ed Referral OON/Self Pay Override 07/26/2024 06/02/2025 1 1 Specialty Diagnoses / Procedures Referred By Contac t Referred To Contact Cardiology Diagnoses 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, bilateral legs (HCC) Procedures Vascular US lower extremity arterial duplex bilateral with RIMMA Vascular US lower extremity arterial duplex bilateral Ta Dover MD [address] [place] [address] [address] Non-Invasive Cardiology [address] [place] [address] Referral ID Status Reason Start Date Expiration Date V isits Requested Visits Authorized [id number] Closed Perform Procedure 04/22/2022 07/20/2022 1 1 Assessments Diagnosis 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, bilateral legs (HCC) Advance Directives Documents on File Type Date Recorded 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 Advance Directives and Living Will Power of Development Writer Documents on File Type Date Recorded 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 ACP-Advance Directive ACP-Power of Development Writer Documents on File Type Date Recorded 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 No September 26, 2024 9:46am Advance Directives No July 06, 2017 11:47am Advance Directive Response Recorded Date/ Time Living Will No September 26, 2024 9:46am Do you have a Healthcare Power of Development Writer? No September 26, 2024 9:46am Living Will No August 05 11:11pm Do you have a Healthcare Power of Development Writer? No August 05, 2020 11:11pm Advance Directives No July 06, 2017 11:47am Date Activated Date Inactivated Comments 01/02/2024 6:26 AM 01/02/2024 3:14 PM Summary Purpose Family History Relationship Condition Age at Onset Recorded Date/T mathieu mother Malignant neoplasm Unknown father Malignant neoplasm Unknown Diabetes mellitus Unknown sister Cardiac disease Unknown Myocardial infarction Unknown brother Cardiac disease Unknown Malignant neoplasm Unknown Chief Complaint and Reason for Visit Chief Complaint NEED ORDER/TO BE FAX ED OVER Chief Complaint Admit Date NOSEBLEED September 26, 2024 9:1 0am Chief Complaint Admit Date NOSEBLEED September 26, 2024 9:1 0am 1 YEAR LABS November 12, 2024 12:26 pm 12 [place], LABS November 12, 2024 12:30 pm Reason for Visit Admit Date Anemia November 12, 2024 12:26 pm History of malignant melanoma of back Ma y 2024 12:26pm History of prostate cancer November 12 12:26pm Chief Complaint Admit Date NOSEBLEED September 26, 2024 9:1 0am 1 YEAR LABS November 12, 2024 12:26 pm 12 [place], LABS November 12, 2024 12:30 pm eorders November 13, 2024 3:58p m Additional Source Comments (unrecognized sect ion and content) No Status Records FoundNo Status Records FoundNo Status Records FoundNo Status Records FoundNo Status Records FoundNo Status Records FoundNo Status Records FoundNo Status Records Found INFORMATION SOURCE (unrecogn ized section and content) DATE CREATED AUTHOR 12/02/2020 [facility] DATE CREATED AUTHOR AUTHOR'S ORGANIZ ATION 01/20/2022 [facility] DATE CREATED AUTHOR AUTHOR'S ORGANIZ ATION 01/26/2022 [facility] DATE CREATED AUTHOR AUTHOR'S ORGANIZ ATION 02/21/2024 [facility] ([place]) DATE CREATED AUTHOR AUTHOR'S ORGANIZ ATION 07/09/2024 [facility] DATE CREATED AUTHOR AUTHOR'S ORGANIZ ATION 11/24/2024 [facility] DATE CREATED AUTHOR AUTHOR'S ORGANIZ ATION 02/19/2025 [facility] DATE CREATED AUTHOR AUTHOR'S ORGANIZ ATION 03/08/2025 [facility] Source Comments (unrecognize d section and content) In the event this informatio n is protected by the Federal Confidentiality of Alcohol and Drug Abuse Patient Records regulations: The Federal rules restrict any use of the information to criminally investigate or prosecute any alcohol or drug abuse patient.[facility] the event this information is protected by the Federal Confidentiality of Alcohol and Drug Abuse Patient Records regulations: The Federal rules restrict any use of the information to criminally investigate or prosecute any alcohol or drug abuse patient.[facility] the event this information is protected by the Federal Confidentiality of Alcohol and Drug Abuse Patient Records regulations: The Federal rules restrict any use of the information to criminally investigate or prosecute any alcohol or drug abuse patient.[facility] the event this information is protected by the Federal Confidentiality of Alcohol and Drug Abuse Patient Records regulations: The Federal rules restrict any use of the information to criminally investigate or prosecute any alcohol or drug abuse patient.[facility] the event this information is protected by the Federal Confidentiality of Alcohol and Drug Abuse Patient Records regulations: The Federal rules restrict any use of the information to criminally investigate or prosecute any alcohol or drug abuse patient.[facility] Hospital[facility] the event this information is protected by the Federal Confidentiality of Alcohol and Drug Abuse Patient Records regulations: The Federal rules restrict any use of the information to criminally investigate or prosecute any alcohol or drug abuse patient.[facility] the event this information is protected by the Federal Confidentiality of Alcohol and Drug Abuse Patient Records regulations: The Federal rules restrict any use of the information to criminally investigate or prosecute any alcohol or drug abuse patient.[facility] Hospital[facility] the event this information is protected by the Federal Confidentiality of Alcohol and Drug Abuse Patient Records regulations: The Federal rules restrict any use of the information to criminally investigate or prosecute any alcohol or drug abuse patient.[facility] HospitalIn the event this information is protected by the Federal Confidentiality of Alcohol and Drug Abuse Patient Records regulations: The Federal rules restrict any use of the information to criminally investigate or prosecute any alcohol or drug abuse patient.[facility] HospitalIn the event this information is protected by the Federal Confidentiality of Alcohol and Drug Abuse Patient Records regulations: The Federal rules restrict any use of the information to criminally investigate or prosecute any alcohol or drug abuse patient.[facility] HospitalIn the event this information is protected by the Federal Confidentiality of Alcohol and Drug Abuse Patient Records regulations: The Federal rules restrict any use of the information to criminally investigate or prosecute any alcohol or drug abuse patient.[facility] HospitalIn the event this information is protected by the Federal Confidentiality of Alcohol and Drug Abuse Patient Records regulations: The Federal rules restrict any use of the information to criminally investigate or prosecute any alcohol or drug abuse patient.[facility] HospitalIn the event this information is protected by the Federal Confidentiality of Alcohol and Drug Abuse Patient Records regulations: The Federal rules restrict any use of the information to criminally investigate or prosecute any alcohol or drug abuse patient.[facility] HospitalIn the event this information is protected by the Federal Confidentiality of Alcohol and Drug Abuse Patient Records regulations: The Federal rules restrict any use of the information to criminally investigate or prosecute any alcohol or drug abuse patient.[facility] HospitalIn the event this information is protected by the Federal Confidentiality of Alcohol and Drug Abuse Patient Records regulations: The Federal rules restrict any use of the information to criminally investigate or prosecute any alcohol or drug abuse patient.[facility] HospitalIn the event this information is protected by the Federal Confidentiality of Alcohol and Drug Abuse Patient Records regulations: The Federal rules restrict any use of the information to criminally investigate or prosecute any alcohol or drug abuse patient.[facility] HospitalIn the event this information is protected by the Federal Confidentiality of Alcohol and Drug Abuse Patient Records regulations: The Federal rules restrict any use of the information to criminally investigate or prosecute any alcohol or drug abuse patient.[facility] HospitalIn the event this information is protected by the Federal Confidentiality of Alcohol and Drug Abuse Patient Records regulations: The Federal rules restrict any use of the information to criminally investigate or prosecute any alcohol or drug abuse patient.[facility] HospitalIn the event this information is protected by the Federal Confidentiality of Alcohol and Drug Abuse Patient Records regulations: The Federal rules restrict any use of the information to criminally investigate or prosecute any alcohol or drug abuse patient.[facility] HospitalIn the event this information is protected by the Federal Confidentiality of Alcohol and Drug Abuse Patient Records regulations: The Federal rules restrict any use of the information to criminally investigate or prosecute any alcohol or drug abuse patient.[facility] HospitalIn the event this information is protected by the Federal Confidentiality of Alcohol and Drug Abuse Patient Records regulations: The Federal rules restrict any use of the information to criminally investigate or prosecute any alcohol or drug abuse patient.[facility] HospitalIn the event this information is protected by the Federal Confidentiality of Alcohol and Drug Abuse Patient Records regulations: The Federal rules restrict any use of the information to criminally investigate or prosecute any alcohol or drug abuse patient.[facility] HospitalIn the event this information is protected by the Federal Confidentiality of Alcohol and Drug Abuse Patient Records regulations: The Federal rules restrict any use of the information to criminally investigate or prosecute any alcohol or drug abuse patient.[facility] HospitalIn the event this information is protected by the Federal Confidentiality of Alcohol and Drug Abuse Patient Records regulations: The Federal rules restrict any use of the information to criminally investigate or prosecute any alcohol or drug abuse patient.[facility] HospitalIn the event this information is protected by the Federal Confidentiality of Alcohol and Drug Abuse Patient Records regulations: The Federal rules restrict any use of the information to criminally investigate or prosecute any alcohol or drug abuse patient.[facility] HospitalIn the event this information is protected by the Federal Confidentiality of Alcohol and Drug Abuse Patient Records regulations: The Federal rules restrict any use of the information to criminally investigate or prosecute any alcohol or drug abuse patient.[facility] HospitalIn the event this information is protected by the Federal Confidentiality of Alcohol and Drug Abuse Patient Records regulations: The Federal rules restrict any use of the information to criminally investigate or prosecute any alcohol or drug abuse patient.[facility] HospitalIn the event this information is protected by the Federal Confidentiality of Alcohol and Drug Abuse Patient Records regulations: The Federal rules restrict any use of the information to criminally investigate or prosecute any alcohol or drug abuse patient.[facility] Reason for Visit (unrecogniz ed section and content) Reason Comments Appointment Reason Comments Derm Problem growth of concern Reason Comments Ear Pain bilteral ear pain ra carmita 6, intermittent x2 mths Reason Comments Pain Established Patient Last seen 11/30/20 S/P Right thumb [facility] ar throplasaty With LRTI (10/07/20) Reason Comments Ear Pain Left ear pain, chest congestion x 6 days Specialty Diagnoses / Procedures Referred By Naila crawford Referred To Contact Cardiology Diagnoses 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, bilateral legs (HCC) Procedures Vascular US lower extremity arterial duplex graft bilateral with RIMMA Krystin Tejada PA-C [address] [place] [address] [facility] Non-Invasive Cardiology [address] [place] [address] Referral ID Status Reason Start Date Expiration Date V isits Requested Visits Authorized [id number] Closed Perform Procedure 05/11/2022 11/07/2022 1 1 Reason Comments Follow-up recall arterial dupl ex 10/24/22 ([facility]) Specialty Diagnoses / Procedures Referred By Naila crawford Referred To Contact Cardiology Diagnoses 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, bilateral legs (HCC) Procedures Vascular US lower extremity arterial duplex graft bilateral with RIMMA Krystin Tejada PA-C [address] [place] [address] [facility] Non-Invasive Cardiology [address] [place] [address] Referral ID Status Reason Start Date Expiration Date V isits Requested Visits Authorized [id number] Closed Perform Procedure 10/26/2022 04/24/2024 1 1 Specialty Diagnoses / Procedures Referred By Contac t Referred To Contact Radiology Diagnoses 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, bilateral legs (HCC) Aftercare following surgery of the circulatory system Procedures CTA aorta BL iliofemoral runoff w Jana Soto, VOICE INSTRUCTOR - LIGHT BULB ASSEMBLER [address] [place] [phone] [facility] [address] [facility] [address] [place] [address] Referral ID Status Reason Start Date Expiration Date Visits Re quested Visits Authorized [id number] Closed 11/16/2023 11/15/2024 1 1 Reason Comments Follow-up Discuss CTA Aorta BL Iliofemoral 12/06/23 Reason Onset Date Comments Central Scheduling 11/06/2023 Vasc US sched uled Specialty Diagnoses / Procedures Referred By Naila crawford Referred To Contact Diagnoses 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, bilateral legs (HCC) 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, bilateral legs (HCC) [I70.213] Procedures WA SLCTV CATHJ 2ND ORDER ABDL PEL/LXTR ART BRNCH WA REVSC OPN/PRQ ILIAC ART W/STNT PLMT & ANGIOPLSTY AORTOGRAM WITH BILATERAL LOWER EXTREMITY RUNOFF, POSSIBLE LEFT ILIAC STENT ILIAC COMMERCIAL ASSISTANT/STENT Ta Dover MD [address] [place] [address] [facility] [place] [address] [place] [address] Referral ID Status Reason Start Date Expiration Date Visits Re quested Visits Authorized [id number] 1 1 Reason Comments Follow-up 1st follow up aortog danny with iliac stent 01/02/24 Specialty Diagnoses / Procedures Referred By Naila t Referred To Contact Cardiology Diagnoses 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, bilateral legs (HCC) Procedures Vascular US lower extremity arterial duplex left with RIMMA Ta Dover MD [address] [place] [address] Referral ID Status Reason Start Date Expiration Date Visits Re quested Visits Authorized [id number] Closed 01/17/2024 01/16/2025 1 1 Reason Comments Follow-up 1st follow up aortog danny with iliac stent 01/02/24 Reason Comments Referral Information Reason Comments 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 Reason Comments Spirometry Specialty Diagnoses / Procedures Referred By Contac t Referred To [facility] Diagnoses Pre-op chest exam Procedures LUNG DIFFUSION CAPACITY (DLCO) DIFFUSING CAPACITY Michael Curran MD [address] [place] [address] [address] Referral ID Status Reason Start Date Expiration Date V isits Requested Visits Authorized [id number] Closed Auto-Generate d Referral 01/31/2024 06/18/2024 1 1 Specialty Diagnoses / Procedures Referred By Contac t Referred To [facility] Diagnoses Pre-op chest exam Procedures LUNG VOLUMES Michael Curran MD [address] [place] [address] [address] Referral ID Status Reason Start Date Expiration Date V isits Requested Visits Authorized [id number] Closed Auto-Generate d Referral 01/31/2024 06/18/2024 1 1 Specialty Diagnoses / Procedures Referred By Contac t Referred To [facility] Diagnoses Pre-op chest exam Procedures SIX MINUTE WALK CARDIOPULMONARY EXERCISE STRESS PULMONARY STRESS TESTING Michael Curran MD [address] [place] [address] [address] Referral ID Status Reason Start Date Expiration Date V isits Requested Visits Authorized [id number] Closed Auto-Generate d Referral 01/31/2024 06/18/2024 1 1 Specialty Diagnoses / Procedures Referred By Contac t Referred To [facility] Diagnoses Pre-op chest exam Procedures SPIROMETRY WITH DILATOR IF OBSTRUCTED BRNCDILAT RSPSE SPMTRY PRE&POST-BRNCDILAT ADMN Michael Curran MD [address] [place] [address] [address] Referral ID Status Reason Start Date Expiration Date V isits Requested Visits Authorized [id number] Closed Auto-Generate d Referral 01/31/2024 06/18/2024 1 1 Reason Comments New Reason Comments Requested Images Reason Comments Orders Reason Comments Recheck Reason Comments Radiology CT Specialty Diagnoses / Procedures Referred By Contac t Referred To Contact CT IMAGING Diagnoses Right upper lobe pulmonary nodule Procedures CT CHEST WO IVCON DIAGNOSTIC COMPUTED TOMOGRAPHY THORAX W/O Gilbert Negrete MD [id number] [place] [address] Referral ID Status Reason Start Date Expiration Date V isits Requested Visits Authorized [id number] Closed Auto-Generate d Referral 03/14/2024 04/13/2025 [address] Specialty Diagnoses / Procedures Referred By Contac t Referred To Contact CT IMAGING Diagnoses Right upper lobe pulmonary nodule Procedures CT CHEST WO IVCON DIAGNOSTIC COMPUTED TOMOGRAPHY THORAX W/O Gilbert Negrete MD [address] [phone] Phone: tel: fax: [facility] [place] [address] Referral ID Status Reason Start Date Expiration Date V isits Requested Visits Authorized [id number] Closed Auto-Generate d Referral OON/Self Pay Override 07/26/2024 06/02/2025 1 1 Reason Onset Date Comments Prior Authorization 01/08/2025 Reason Comments Follow-up recall arterial dupl ex 01/17/25 Care Teams (unrecognized sec tion and content) Public Health Registrar Relationship Specialty Start Date End Date Julissa García CNP [address] [place] [address] PCP - General Family Practice 09/28/20 Public Health Registrar Relationship Specialty Start Date End Date Julissa García CNP [address] [place] [address] PCP - General Family Practice 09/28/20 Public Health Registrar Relationship Specialty Start Date End Date Julissa García CNP [address] [place] [address] PCP - General Family Practice 09/28/20 Public Health Registrar Relationship Specialty Start Date End Date KileyJulissa garciaGIA - RACK WASHER [address] [place] [address] PCP - General 09/07/17 Public Health Registrar Relationship Specialty Start Date End Date KileyJulissa garciaGIA - RACK WASHER [address] [place] [address] PCP - General 09/07/17 Public Health Registrar Relationship Specialty Start Date End Date Julissa García CNP [address] [place] [address] PCP - General Family Medicine 09/28/20 Public Health Registrar Relationship Specialty Start Date End Date KileyJulissa garcia, KO [address] [place] [address] PCP - General Family Medicine 09/28/20 Public Health Registrar Relationship Specialty Start Date End Date Jessica Stanford [address] [place] [address] PCP - General 12/24/21 Public Health Registrar Relationship Specialty Start Date End Date Abdoulaye Jessica [address] [place] [phone] PCP - General 12/24/21 Public Health Registrar Relationship Specialty Start Date End Date Jessica Stanford [address] [place] [address] PCP - General 12/24/21 Team Status: Active Member Role Status Dates Julissa García RACK WASHER, RACK WASHER-C Family Provider Active Jessica Stanford RACK WASHER, RACK WASHER-C Primary Care Provider Active Team Status: Inactive Member Role Status Dates Jessica Stanford RACK WASHER, RACK WASHER-C Primary Care Provider Active Dr. Isaias Franz MD Attending Provider, [facility] Provider Active Public Health Registrar Relationship Specialty Start Date End Date Jessica Stanford [address] [place] [phone] PCP - General 12/24/21 Public Health Registrar Relationship Specialty Start Date End Date Jessica Stanford [address] [place] [address] PCP - General 12/24/21 Public Health Registrar Relationship Specialty Start Date End Date Jessica Stanford [address] [place] [phone] PCP - General 12/24/21 Public Health Registrar Relationship Specialty Start Date End Date Jessica Stanford [address] [place] [phone] PCP - General 12/24/21 Ta Dover MD [address] [place] [address] Consulting Physician Vascular Surgery 12/08/23 Jana Negrete APRN - LIGHT BULB ASSEMBLER [address] [place] [phone] Nurse Practitioner Nurse Practitioner 12/08/23 Public Health Registrar Relationship Specialty Start Date End Date Abdoulaye Jessica [address] [place] [address] PCP - General 12/24/21 Ta Dover MD [address] [place] [address] Consulting Physician Vascular Surgery 12/08/23 Jana Negrete APRN - LIGHT BULB ASSEMBLER [address] [place] [address] Nurse Practitioner Nurse Practitioner 12/08/23 Public Health Registrar Relationship Specialty Start Date End Date Jessica Stanford [address] [place] [address] PCP - General 12/24/21 Ta Dover MD [address] [place] [address] Consulting Physician Vascular Surgery 12/08/23 Jana Negrete APRN - LIGHT BULB ASSEMBLER [address] [place] [address] Nurse Practitioner Nurse Practitioner 12/08/23 Public Health Registrar Relationship Specialty Start Date End Date Jessica Stanford [address] [place] [address] PCP - General 12/24/21 Ta Dover MD [address] [place] [address] Consulting Physician Vascular Surgery 12/08/23 Jana Negrete APRN - LIGHT BULB ASSEMBLER [address] [place] [address] Nurse Practitioner Nurse Practitioner 12/08/23 Public Health Registrar Relationship Specialty Start Date End Date Jessica Stanford [address] [place] [address] PCP - General 12/24/21 Ta Dover MD [address] [place] [address] Consulting Physician Vascular Surgery 12/08/23 Jana Negrete APRN - LIGHT BULB ASSEMBLER [address] [place] [address] Nurse Practitioner Nurse Practitioner 12/08/23 Public Health Registrar Relationship Specialty Start Date End Date Jessica Stanford [address] [place] [address] PCP - General 12/24/21 Ta Dover MD [address] [place] [address] Consulting Physician Vascular Surgery 12/08/23 Jana Negrete APRN - LIGHT BULB ASSEMBLER [address] [place] [address] Nurse Practitioner Nurse Practitioner 12/08/23 Public Health Registrar Relationship Specialty Start Date End Date Jessica Stanford [address] [place] [address] PCP - General 12/24/21 Ta Dover MD [address] [place] [address] Consulting Physician Vascular Surgery 12/08/23 Jana Negrete APRN - LIGHT BULB ASSEMBLER [address] [place] [address] Nurse Practitioner Nurse Practitioner 12/08/23 Public Health Registrar Relationship Specialty Start Date End Date Jessica Stanford [address] [place] [address] PCP - General 12/24/21 Ta Dover MD [address] [place] [address] Consulting Physician Vascular Surgery 12/08/23 Jana Negrete APRN - LIGHT BULB ASSEMBLER [address] [phone] Nurse Practitioner Nurse Practitioner 12/08/23 Public Health Registrar Relationship Specialty Start Date End Date Jessica Stanford [address] [place] [address] PCP - General 12/24/21 Ta Dover MD 95 [facility] [address] [place] [address] Consulting Physician Vascular Surgery 12/08/23 Jana Negrete APRN - KO [address] [phone] Nurse Practitioner Nurse Practitioner 12/08/23 Public Health Registrar Relationship Specialty Start Date End Date Julissa García CNP [address] [place] [phone] PCP - General Family Medicine 09/28/20 Public Health Registrar Relationship Specialty Start Date End Date Julissa García CNP [address] [place] [phone] PCP - General Family Medicine 09/28/20 Public Health Registrar Relationship Specialty Start Date End Date Julissa García CNP [address] [place] [phone] PCP - General Family Medicine 09/28/20 Public Health Registrar Relationship Specialty Start Date End Date Julissa García CNP [address] [place] [phone] PCP - General Family Medicine 09/28/20 Public Health Registrar Relationship Specialty Start Date End Date Julissa García CNP [address] [place], [place] [address] PCP - General Family Medicine 09/28/20 Public Health Registrar Relationship Specialty Start Date End Date Julissa García CNP [address] [place], [place] [address] PCP - General Family Medicine 09/28/20 Public Health Registrar Relationship Specialty Start Date End Date Julissa García CNP [address] [place] [phone] PCP - General Family Medicine 09/28/20 Public Health Registrar Relationship Specialty Start Date End Date Julissa García CNP [address] [place] [phone] PCP - General Family Medicine 09/28/20 Public Health Registrar Relationship Specialty Start Date End Date Julissa García CNP [address] [place] [phone] PCP - General Family Medicine 09/28/20 Public Health Registrar Relationship Specialty Start Date End Date Julissa García CNP [address] [place] [phone] PCP - General Family Medicine 09/28/20 Public Health Registrar Relationship Specialty Start Date End Date Julissa García CNP [address] [place], [place] [address] PCP - General Family Medicine 09/28/20 Public Health Registrar Relationship Specialty Start Date End Date Julissa García CNP [address] [place] [address] PCP - General Family Medicine 09/28/20 Public Health Registrar Relationship Specialty Start Date End Date Jessica Stanford [address] [place] [address] PCP - General 12/24/21 Public Health Registrar Relationship Specialty Start Date End Date Jessica Stanford [address] [place] [address] PCP - General 12/24/21 Ta Dover MD [address] [phone] Consulting Physician Vascular Surgery 12/08/23 Jana Negrete APRN - LIGHT BULB ASSEMBLER [address] [phone] Nurse Practitioner Nurse Practitioner 12/08/23 Public Health Registrar Relationship Specialty Start Date End Date Jessica Stanford [address] [place] [address] PCP - General 12/24/21 Ta Dover MD [address] [place] [address] Consulting Physician Vascular Surgery 12/08/23 Jana Negrete APRN - KO [address] [place] [phone] Nurse Practitioner Nurse Practitioner 12/08/23 Public Health Registrar Relationship Specialty Start Date End Date Julissa García CNP [address] [place] [address] PCP - General Family Medicine 09/28/20 Public Health Registrar Relationship Specialty Start Date End Date Julissa García CNP [address] [place] [phone] PCP - General Family Medicine 09/28/20 Public Health Registrar Relationship Specialty Start Date End Date Julissa García CNP [address] [place] [phone] PCP - General Family Medicine 09/28/20 Team Status: Active Member Role Status Dates Jessica Stanford RACK WASHER, RACK WASHER-C Primary Care Provider Active Team Status: Inactive Member Role Status Dates Jessica Stanford RACK WASHER, RACK WASHER-C Primary Care Provider Active Start: September 26, 2024 End: September 26, 2024 Dr. Andre Ferrari DO Emergency Provider Active Start: September 26, 2024 End: September 26, 2024 Team Status: Inactive Member Role Status Dates Jessica Stanford RACK WASHER, RACK WASHER-C Primary Care Provider Active Start: September 26, 2024 End: September 26, 2024 Dr. Andre Ferrari DO Attending Provider Active Start: September 26, 2024 End: September 26, 2024 Dr. Andre Ferrari DO Emergency Provider Active Start: September 26, 2024 End: September 26, 2024 Team Status: Inactive Member Role Status Dates Jessica Stanford RACK WASHER, RACK WASHER-C Primary Care Provider Active Start: November 12, 2024 End: November 12, 2024 Jessica Stanford RACK WASHER, RACK WASHER-C Referring Provider Active S tart: November 12, 2024 End: November 12, 2024 Dr. Eugenio Mata MD Attending Provider Active S tart: November 12, 2024 End: November 12, 2024 Team Status: Active Member Role Status Dates Jessica Stanford RACK WASHER, RACK WASHER-C Primary Care Provider Active Start: November 12, 2024 Dr. Eugenio Mata MD Attending Provider Active S tart: November 12, 2024 Dr. Eugenio Mata MD Referring Provider Active S tart: November 12, 2024 Team Status: Inactive Member Role Status Dates Jessica Stanford RACK WASHER, RACK WASHER-C Primary Care Provider Active Start: November 13, 2024 End: November 13, 2024 Dr. Eugenio Mata MD Attending Provider Active S tart: November 13, 2024 End: November 13, 2024 Dr. Eugenio Mata MD Referring Provider Active S tart: November 13, 2024 End: November 13, 2024 Public Health Registrar Relationship Specialty Start Date End Date Julissa García APRN.LIGHT BULB ASSEMBLER PCP - General Family Medicine 09/28/20 Public Health Registrar Relationship Specialty Start Date End Date Julissa García APRN.LIGHT BULB ASSEMBLER PCP - General Family Medicine 09/28/20 Public Health Registrar Relationship Specialty Start Date End Date Jessica Stanford [address] [place] [address] PCP - General 12/24/21 Ta Dover MD [address] [place] [address] Consulting Physician Vascular Surgery 12/08/23 Jana Negrete APRN - LIGHT BULB ASSEMBLER [address] [place] [phone] Nurse Practitioner Nurse Practitioner 12/08/23 Public Health Registrar Relationship Specialty Start Date End Date Jessica Stanford [address] [place] [address] PCP - General 12/24/21 Ta Dover MD [address] [place] [address] Consulting Physician Vascular Surgery 12/08/23 Jana Negrete APRN - L[employer] BUL[employer] ASSEMBLER [address] [phone] Nurse Practitioner Nurse Practitioner 12/08/23 Care Team (unrecognized sect ion and content) Care Team Personnel Name: JESSICA STANFORD Position: P4 Advanced Practice Nurse Med Service: Active Provider Member Role: Primary Care Physician Address: Address: [address] [place] [address] Name: Laith Chaparro Apparel Sales Associateagustín Wade Position: P3 Scheduling - Apparel Sales Associate Advanced Member Role: Other Name: ADARSH TELLES MD Position: P4 Physician - Urologist Member Role: Urologist Address: Address: [address] [place] [address] Care Team Related Persons Name: ANNIE SINGH Care Team Personnel Name: JESSICA STANFORD Position: P4 [employer] Lip Wetter Member Role: Primary Care Physician Address: Address: [address] [place] [address] Name: ADARSH TELLES MD Position: P4 Physician - Urologist Member Role: Urologist Address: Address: [address] [place] [address] Name: TA DOVER MD Member Role: Vascular Surgeon Address: Address: [address] [place] [address] Name: SAEED LYONS DO Position: ED Physician Member Role: Attending Physician Address: Address: [address] [place], [place] [address] Care Team Related Persons Name: ANNIE SINGH Goals (unrecognized section and content) Goals may be documented in a n alternate section Scheduled Active and Recently Administ ered Medications (unrecognized section and content) Medication Order 12/31/2023 01/01/2024 01/02/2024 ceFAZolin in dextrose 4% (Ancef) IVPB 2,000 mg (COMPLETED) 2,000 mg, IntraVENous, Administer over 30 Minutes, Once, On Mon01/02/24 at 0630, For 1 dose, Preprocedure, Administer within 1 hour prior to incision. Recommend to repeat in 3-4 hours after initial dose if still intra-op. premix bag, Suspected Indication (Select all that apply): Surgical Prophylaxis 0835 (Given - Provid er: GIA Lopez CRNA)1020 (Anesthesia Volume Adjustment - Provider: GIA Lopez CRNA) clopidogrel (Plavix) tablet 300 mg (COMPLETED) 300 mg, Oral, Once, On Mon01/02/24 at 1200, For 1 dose, Recovery (only) 1210 (Given - Provid er: Sravan Rahman RN) sodium chloride 0.9% (NS) flush 10 mL 10 mL, IntraVENous, Every 12 hours scheduled (2 times per day), First dose on Mon01/02/24 at 0900, Preprocedure 0900 (Canceled Entry - Provider: Automatic Discharge Provider - Comment: Automatically canceled at discontinue of medication order) sodium chloride 0.9% (NS) flush 10 mL 10 mL, IntraVENous, Every 12 hours scheduled (2 times per day), First dose on Mon01/02/24 at 1100, Recovery (only) 1100 (Canceled Entry - Provider: Automatic Discharge Provider - Comment: Automatically canceled at discontinue of medication order) sodium chloride 0.9% (NS) flush 5-40 mL 5-40 mL, IntraVENous, Every 12 hours, First dose on Mon01/02/24 at 0630, Preprocedure, For Line Patency: Peripheral IV = 5 mL; Midline or Central Line = 10 mL/lumen. If following IV push medication, administer flush at same rate as the IV push. Flush volume is determined by type of infusion therapy being given. For non-viscous solutions use: Peripheral IV = 5 mL Midline or Central Line = 10 mL/lumen For viscous solutions (i.e. blood components, parenteral nutrition, contrast media, or after obtaining blood sample) use: Peripheral IV = 10 mL Midline or Central Line = 20 mL/lumen 0630 (Canceled Entry - Provider: Automatic Discharge Provider - Comment: Automatically canceled at discontinue of medication order) Continuous Medication Order 12/31/2023 01/01/2024 01/02/2024 lactated ringers infusion 125 mL/hr, IntraVENous, Continuous, Starting on Mon01/02/24 at 1100, Recovery (only) 1100 (Canceled Entry - Provider: Automatic Discharge Provider - Comment: Automatically canceled at discontinue of medication order) sodium chloride 0.9 % infusion 50 mL/hr, IntraVENous, Continuous, Starting on Mon01/02/24 at 0630, Preprocedure, Upon admission to sameday - please start iv if patient does not have iv access. 0701 (New Bag - Prov ider: Rain Hurt RN)0820 (Continued by Anesthesia - Provider: GIA Lopez CRNA)0921 (New Bag - Provider: GIA Lopez CRNA)1020 (Anesthesia Volume Adjustment - Provider: GIA Lopez CRNA) PRN Medication Order 12/31/2023 01/01/2024 01/02/2024 ALPRAZolam (Xanax) disintegrating tablet 0.25 mg 0.25 mg, Oral, Once PRN, anxiety, Starting on Mon01/02/24 at 0625, For 1 dose, Preprocedure, Please do not administer prior to obtaining consent and/or history and physical. diphenhydrAMINE (BENADryl) injection 12.5 mg 12.5 mg, IntraVENous, Once PRN, itching, Starting on Mon01/02/24 at 1054, For 1 dose, Recovery (only) fentaNYL (Sublimaze) injection 25 mcg 25 mcg, IntraVENous, Every 5 min PRN, moderate pain (4-6), Starting on Mon01/02/24 at 1106, For 2 doses, Recovery (only), Phase I and Phase II- Initial therapy for moderate pain (4-6). Restricted to a 90 minute time frame starting when the patient can verbally state their pain score. If after 2 doses the pain score does not decrease by more than one point, then call the provider. If oral meds are utilized, do not return to initial therapy medications. 1115 (Given - Provid er: Anel Yancey RN) fentaNYL (Sublimaze) injection 50 mcg 50 mcg, IntraVENous, Every 5 min PRN, severe pain (7-10), Starting on Mon01/02/24 at 1106, For 2 doses, Recovery (only), Phase I and Phase II- Initial therapy for severe pain (7-10). Restricted to a 90 minute time frame starting when the patient can verbally state their pain score. If after 2 doses the pain score does not decrease by more than one point, then call the provider. If oral meds are utilized, do not return to initial therapy medications. heparin 1,000 Units in sodium chloride 0.9 % 500 mL OR irrigation (CANCELED) As needed, Starting on Mon01/02/24 at 0900, Intraprocedure 0900 (Given - Provid er: Ta Dover MD) hydrALAZINE (Apresoline) injection 5 mg(Linked Group 1) 5 mg, IntraVENous, Every 15 min PRN, high blood pressure, for SBP greater than 160 mmHg for 2 consecutive measurements taken from different sites, Starting on Mon01/02/24 at 1054, For 2 doses, Recovery (only), PRN for SBP > 160 for 2 consecutive measurements, and if one of the following conditions is met: 1) If IV labetolol is ineffective. 2) If HR is under 60. 3) If patient has heart block, COPD or asthma. If both labetalol and hydralazine ineffective, notify anesthesia provider. iodixanol (VISIPaque) 320 MG/ML injection (COMPLETED) Continuous PRN, Starting on Mon01/02/24 at 1021, Intraprocedure 1021 (New Bag - Prov ider: Ta Dover MD) labetalol (Normodyne,Trandate) injection 5 mg(Linked Group 1) 5 mg, IntraVENous, Every 10 min PRN, high blood pressure, for SBP greater than 160 mmHg for 2 consecutive measurements taken from different sites., Starting on Mon01/02/24 at 1054, For 2 doses, Recovery (only), PRN for SBP >160 for 2 consecutive measurements, if HR is 60 or greater. If beta marni is contraindicated (HR less than 60, heart block, COPD or asthma) use hydralazine IV order. lidocaine (Xylocaine) 1 % injection (CANCELED) As needed, Starting on Mon01/02/24 at 0900, Intraprocedure 0900 (Given - Provid er: Ta Dover MD)0959 (Given - Provider: Ta Dover MD) ondansetron (Zofran) injection 4 mg 4 mg, IntraVENous, Once PRN, nausea, Starting on Mon01/02/24 at 1054, For 1 dose, Recovery (only), Initial antiemetic therapy. sodium chloride 0.9 % bolus 500 mL 500 mL, IntraVENous, at 1,000 mL/hr, Administer over 0.5 Hours, PRN, Anti-nausea, Starting on Mon01/02/24 at 1054, Recovery (only), Indications: Anti-nausea sodium chloride 0.9 % infusion 5-250 mL/hr, IntraVENous, PRN, if patient receiving piggyback infusions and maintenance fluids are not ordered OR KVO fluids to protect IV site / prevent frequent line interruptions / long duration, Starting on Mon01/02/24 at 0625, Preprocedure, For piggyback infusion, administer at same rate as piggyback for a total of 25 mL. Enter 25 mL into dose field and piggyback rate into rate field of order. If piggyback is infusing at a rate less than 100 mL/hr, enter 25 mL into dose field and 100 mL/hr into rate field of order. For KVO fluids, enter rate of 20 mL/hr or less into rate field of order. sodium chloride 0.9 % infusion 5-250 mL/hr, IntraVENous, PRN, if patient receiving piggyback infusions and maintenance fluids are not ordered OR KVO fluids to protect IV site / prevent frequent line interruptions/ long duration, Starting on Mon01/02/24 at 0626, Preprocedure, For piggyback infusion, administer at same rate as piggyback for a total of 25 mL. Enter 25 mL into dose field and piggyback rate into rate field of order. If piggyback is infusing at a rate less than 100 mL/hr, enter 25 mL into dose field and 100 mL/hr into rate field of order. For KVO fluids, enter rate of 20 mL/hr or less into rate field of order. sodium chloride 0.9 % infusion 5-250 mL/hr, IntraVENous, PRN, if patient receiving piggyback infusions and maintenance fluids are not ordered OR KVO fluids to protect IV site / prevent frequent line interruptions/ long duration, Starting on Mon01/02/24 at 1054, Recovery (only), For piggyback infusion, administer at same rate as piggyback for a total of 25 mL. Enter 25 mL into dose field and piggyback rate into rate field of order. If piggyback is infusing at a rate less than 100 mL/hr, enter 25 mL into dose field and 100 mL/hr into rate field of order. For KVO fluids, enter rate of 20 mL/hr or less into rate field of order. sodium chloride 0.9% (NS) flush 10 mL 10 mL, IntraVENous, PRN, line care, Starting on Mon01/02/24 at 0626, Preprocedure, After every IV line use sodium chloride 0.9% (NS) flush 10 mL 10 mL, IntraVENous, PRN, line care, Starting on Mon01/02/24 at 1054, Recovery (only), After every IV line use sodium chloride 0.9% (NS) flush 5-40 mL 5-40 mL, IntraVENous, PRN, line care, After every IV line use, Starting on Mon01/02/24 at 0625, Preprocedure, For Line Patency: Peripheral IV = 5 mL; Midline or Central Line = 10 mL/lumen. If following IV push medication, administer flush at same rate as the IV push. Flush volume is determined by type of infusion therapy being given. For non-viscous solutions use: Peripheral IV = 5 mL Midline or Central Line = 10 mL/lumen For viscous solutions (i.e. blood components, parenteral nutrition, contrast media, or after obtaining blood sample) use: Peripheral IV = 10 mL Midline or Central Line = 20 mL/lumen Linked Groups Order Group 1: labetalol (Normodyne,Trandate) injection 5 mgJump to med 5 mg, IntraVENous, Every 10 min PRN, high blood pressure, for SBP greater than 160 mmHg for 2 consecutive measurements taken from different sites., Starting on Mon01/02/24 at 1054, For 2 doses, Recovery (only), PRN for SBP >160 for 2 consecutive measurements, if HR is 60 or greater. If beta marni is contraindicated (HR less than 60, heart block, COPD or asthma) use hydralazine IV order. Or hydrALAZINE (Apresoline) injection 5 mgJump to med 5 mg, IntraVENous, Every 15 min PRN, high blood pressure, for SBP greater than 160 mmHg for 2 consecutive measurements taken from different sites, Starting on Mon01/02/24 at 1054, For 2 doses, Recovery (only), PRN for SBP > 160 for 2 consecutive measurements, and if one of the following conditions is met: 1) If IV labetolol is ineffective. 2) If HR is under 60. 3) If patient has heart block, COPD or asthma. If both labetalol and hydralazine ineffective, notify anesthesia provider. FOR RECORDS PERTAINING TO PATIENTS WHO ARE OR HAVE BEEN ENROLLED IN A CHEMICAL DEPENDENCY/SUBSTANCEABUSE PROGRAM, SOME INFORMATION MAY BE OMITTED. This clinical summary was aggregated from multiple sources. Caution should be exercised in using it in the provision of clinical care. This summary normalizes information from multiple sources, and as a consequence, information in this document may materially change the coding, format and clinical context of patient data. In addition, data may be omitted in some cases. CLINICAL DECISIONS SHOULD BE BASED ON THE PRIMARY CLINICAL RECORDS. [employer] [facility]. provides no warranty or guarantee of the accuracy or completeness of information in this document.
[2025-04-09] MEDS: 0.9% Normal Saline (1000mL) 1,000 ML 999 ML IV (20:56)
[2025-04-09 21:05] VITALS: BP 138/78; PULSE 70; RESP 18; O2SAT 98
--- NOTE | 2025-04-09 21:15 | CT_ITS ---
PROCEDURE: ABDOMEN/PELVIS W IV CONT ONLY 04/09/2025 REASON FOR EXAM: RIGHT SIDED ABDOMINAL PAIN TECHNIQUE: Procedure Code: [id number] Modality: CT Procedure: ABDOMEN/PELVIS W IV CONT ONLY Coronal and Sagittal reconstruction series were provided. CONTRAST: VOLUME: mL One or more dose reduction techniques were used (e.g., Automated exposure control, adjustment of the mA and/or kV according to patient size, use of iterative reconstruction technique. FINDINGS: A 4 mm stone is noted within the left (series 601 image 78, series 2 image 32). A punctate nonobstructing stone is noted within the right renal pelvis (series 2, image 36). No hydronephrosis nor hydroureter. The liver is enlarged. Otherwise the liver appears unremarkable. The gallbladder, spleen, pancreas, adrenal glands, and urinary bladder appear unremarkable. A large amount of stool is present throughout the colon. No evidence of a bowel obstruction. The appendix is visualized and normal-appearing. No intraperitoneal free air or free fluid. No lymphadenopathy. Extensive atherosclerotic calcifications. The visualized lung bases are clear. No acute fracture. Moderate lumbar spondylosis. CT/Abdomen/Pelvis W IV Cont ONLY IMPRESSION: Nonobstructing bilateral nephrolithiasis, as described above. Hepatomegaly. Large amount of stool throughout the colon. Extensive atherosclerosis. Moderate lumbar spondylosis. Reading Location: [id number]
[2025-04-09 21:40] LABS: Hematocrit 33.6 % (40-54); Hemoglobin 11.5 g/dL (13.0-16.5); Immature Granulocytes Count 0.030 X10^3/uL (0.0-0.0); Mean Corp Hgb Conc 34.2 g/dL (32-36); Mean Corpuscular Volume 91.1 fL (80-94); Mean Platelet Vol. 11.1 fl (6.2-12.0); NRBC Flagged by Analyzer 0 % (0-5); Platelet Count 224 K/mm3 (150-450); RBC Distribution Width CV 13.8 % (11.6-14.6); RBC Distribution Width SD 47.0 fl (35.1-43.9); Red Blood Count 3.69 M/mm3 (4.6-6.2); White Blood Count 8.9 K/mm3 (4.4-11.0)
[2025-04-09 21:42] LABS: Mucous, Urine 0 SEEN /hpf (<or=2+)
[2025-04-09 21:56] LABS: Color, Urine Yellow (Yellow); Glucose, Dipstick Normal (Normal); Ketone-Dipstick Negative (Negative); Leukocyte Esterase-Dipstick Negative /ul (Negative); Nitrite-Dipstick Negative (Negative); Occult Blood-Urine Negative /ul (Negative); Protein-Dipstick 15 mg/dl (Negative); Specific Gravity, Urine 1.015 (1.002-1.030); Urine Bilirubin Dipstick Negative (Negative)
[2025-04-09 22:01] LABS: AST(SGOT) 20 U/L (<=37); Alanine Aminotransfer ALT/SGPT 27 U/L (<=46); Albumin, Serum 4.2 g/dL (3.4-4.8); Alkaline Phosphatase 75 U/L (40-129); Anion Gap 11 (5-15); BUN 30 mg/dL (4-19); BUN/Creat Ratio 25.4 RATIO (10-20); Bilirubin, Direct 0.12 mg/dL (0.00-0.30); Calcium,Total 9.5 mg/dL (7.6-11.0); Carbon Dioxide 22.1 mmol/L (21.0-32.0); Chloride 105 mmol/L (98-108); Estimated Creatinine Clearance 53.60 ml/min (50-250); Globulin 2.3 g/dL (2.2-4.2); Glucose 112 mg/dL (70-99); Lipase 62 U/L (13-75); Potassium 4.2 mmol/L (3.3-5.1)
[2025-04-09 22:08] LABS: Red Blood Cells-Urine 0-5 SEEN /hpf (0-5); Squamous Epithelial Cells - UA 0-5 SEEN /hpf (0-5)
[2025-04-09 22:37] VITALS: BP 138/78; PULSE 70; RESP 18; TEMP 36.8; O2SAT 98
== END 2025-04-09 22:41 | disposition home or self-care (01) ==
PROVIDERS: Emergency Provider Emergency Medicine; PCP Nurse Practitioner Primary Care; Visit Provider Emergency Medicine
DX: R10.31 Right lower quadrant pain (principal); R10.13 Epigastric pain; G47.00 Insomnia, unspecified; I10 Essential (primary) hypertension; E78.00 Pure hypercholesterolemia, unspecified; K59.09 Other constipation; M54.9 Dorsalgia, unspecified; G89.29 Other chronic pain; Z79.82 Long term (current) use of aspirin; Z87.891 Personal history of nicotine dependence; Z85.118 Personal history of other malignant neoplasm of bronchus and lung; Z87.19 Personal history of other diseases of the digestive system
CPT/HCPCS: 74177; 80048; 80076; 81001; 83690; 85025; 96361; 96374; 96375; 99283; Q9967; A4216; J2405